=== PATIENT | male | born 1950 | race Caucasian/White ===

== ENCOUNTER 2016-02-16 13:58 | Outpatient (RCR) | payer MEDICARE ==
--- OUTSIDE RECORDS SUMMARY | 2015-11-22 14:19 | XMS REPORT | Continuity of Care Document ---
Author Author [facility] Organization [facility] Address Unknown Phone Unavailable Care Team Providers Care Director Of Early Childhood Name Role Phone Luh Zelaya PCP [phone] Source Comments Some departments are not documenting in the electronic medical record. If you do not see the information that you expected, contact Release of Information in the Health Information Management department at [phone] for further assistance in locating additional records.[facility] Active Allergies and Adverse Reactions Allergen Noted Date Severity Reactions Comments Nitroglycerin 04/22/2013 SEE COMMENTS Blood pressure drops rapidly Current Medications Prescription Sig. Disp. Refills Start End Date Status Date ranolazine ER (RANEXA) Take by mouth twice Active 500 mg tablet daily. glipiZIDE (GLUCOTROL) 10 Take 10 mg by mouth twice Active mg tablet daily. colesevelam(+) (WELCHOL) Take 1,875 mg by mouth Active 625 mg tablet three times daily. insulin detemir(+) Inject 100 Units into Active (LEVEMIR) 100 unit/mL area(s) as directed. soln insulin glulisine(+) Inject 5 Units into Active (APIDRA) 100 unit/mL area(s) as directed three injection vial times daily with meals. levothyroxine (SYNTHROID) Take 300 mcg by mouth Active 300 mcg tablet daily. levothyroxine (SYNTHROID) Take 25 mcg by mouth Active 25 mcg tablet daily. clopiDOGrel (PLAVIX) 75 Take 75 mg by mouth Active mg tablet daily. DULoxetine DR (CYMBALTA) Take 60 mg by mouth Active 60 mg capsule daily. aspirin EC 81 mg tablet Take 81 mg by mouth Active daily. atorvastatin (LIPITOR) 80 Take 80 mg by mouth Active mg tablet daily. fish oil /omega-3 fatty Take 1 Cap by mouth Active acids (SEA-OMEGA) daily. 340/1000 mg capsule Active Problems No known active problems Social History Tobacco Use Types Packs/Day Years Used Date Never Smoker Smokeless Tobacco: Never Used Alcohol Use Drinks/Week oz/Week Comments No Last Filed Vital Signs Vital Sign Reading Time Taken Blood Pressure 161/94 04/22/2013 8:35 AM ASSISTANT EXECUTIVE HOUSEKEEPER Pulse 95 04/22/2013 8:35 AM ASSISTANT EXECUTIVE HOUSEKEEPER Temperature 36.9 C (98.4 F) 04/22/2013 8:35 AM ASSISTANT EXECUTIVE HOUSEKEEPER Respiratory Rate - - Height 1.721 m (5' 7.75") 04/22/2013 8:35 AM ASSISTANT EXECUTIVE HOUSEKEEPER Weight 83.28 kg (183 lb 9.6 oz) 04/22/2013 8:35 AM ASSISTANT EXECUTIVE HOUSEKEEPER Body Mass Index 28.12 04/22/2013 8:35 AM ASSISTANT EXECUTIVE HOUSEKEEPER Oxygen Saturation 93% 04/22/2013 8:35 AM ASSISTANT EXECUTIVE HOUSEKEEPER Plan of Care Health Maintenance Due Date Last Done Comments Physical (Comprehensive) [birth year]06/1957 Exam Pertussis Vaccine 01/06/1960 Tetanus Vaccine 1966 Colorectal Cancer 1999 Screening Shingles Vaccine 2009 Prevnar/Pneumovax (#1) 2014 Influenza Vaccine 10/19/2015 Results from Last 3 Months Not on file
[2015-11-22 14:58] LABS: BASOPHILS % (AUTO) 1 % (0-10); EOSINOPHILS # (AUTO) 0.3 10^3/uL (0.0-0.3); EOSINOPHILS % (AUTO) 7 % (0-10); LYMPHOCYTES # (AUTO) 0.7 X 10^3 (1.0-4.0); LYMPHOCYTES % (AUTO) 15 % (12-44); MEAN CORPUSCULAR HEMOGLOBIN 33 PG (25-34); MEAN CORPUSCULAR HGB CONC 34 G/DL (32-36); MEAN CORPUSCULAR VOLUME 96 FL (80-99); MEAN PLATELET VOLUME 8.4 FL (7.4-10.4); MONOCYTES # (AUTO) 0.3 X 10^3 (0.0-1.0); MONOCYTES % (AUTO) 7 % (0-12); NEUTROPHILS # (AUTO) 3.2 X 10^3 (1.8-7.8); NEUTROPHILS % (AUTO) 70 % (42-75); PLATELET COUNT 139 10^3/uL (130-400); RED BLOOD COUNT 2.82 10^6/uL (4.35-5.85); RED CELL DISTRIBUTION WIDTH 13.7 % (10.0-14.5); WHITE BLOOD COUNT 4.6 10^3/uL (4.3-11.0)
[2015-12-22 14:24] LABS: BASOPHILS % (AUTO) 1 % (0-10); EOSINOPHILS # (AUTO) 0.4 10^3/uL (0.0-0.3); EOSINOPHILS % (AUTO) 8 % (0-10); LYMPHOCYTES # (AUTO) 0.7 X 10^3 (1.0-4.0); LYMPHOCYTES % (AUTO) 14 % (12-44); MEAN CORPUSCULAR HEMOGLOBIN 33 PG (25-34); MEAN CORPUSCULAR HGB CONC 34 G/DL (32-36); MEAN CORPUSCULAR VOLUME 98 FL (80-99); MEAN PLATELET VOLUME 9.2 FL (7.4-10.4); MONOCYTES # (AUTO) 0.3 X 10^3 (0.0-1.0); MONOCYTES % (AUTO) 6 % (0-12); NEUTROPHILS # (AUTO) 3.7 X 10^3 (1.8-7.8); NEUTROPHILS % (AUTO) 70 % (42-75); PLATELET COUNT 143 10^3/uL (130-400); RED CELL DISTRIBUTION WIDTH 13.1 % (10.0-14.5); WHITE BLOOD COUNT 5.2 10^3/uL (4.3-11.0)
[2016-01-04 15:23] LABS: BASOPHILS % (AUTO) 1 % (0-10); EOSINOPHILS # (AUTO) 0.3 10^3/uL (0.0-0.3); EOSINOPHILS % (AUTO) 6 % (0-10); LYMPHOCYTES # (AUTO) 0.9 X 10^3 (1.0-4.0); LYMPHOCYTES % (AUTO) 14 % (12-44); MEAN CORPUSCULAR HEMOGLOBIN 34 PG (25-34); MEAN CORPUSCULAR HGB CONC 34 G/DL (32-36); MEAN CORPUSCULAR VOLUME 98 FL (80-99); MEAN PLATELET VOLUME 9.1 FL (7.4-10.4); MONOCYTES # (AUTO) 0.5 X 10^3 (0.0-1.0); MONOCYTES % (AUTO) 8 % (0-12); NEUTROPHILS # (AUTO) 4.2 X 10^3 (1.8-7.8); NEUTROPHILS % (AUTO) 72 % (42-75); PLATELET COUNT 198 10^3/uL (130-400); RED BLOOD COUNT 2.65 10^6/uL (4.35-5.85); RED CELL DISTRIBUTION WIDTH 13.4 % (10.0-14.5); WHITE BLOOD COUNT 5.9 10^3/uL (4.3-11.0)
[2016-01-10 15:20] LABS: BASOPHILS % (AUTO) 1 % (0-10); EOSINOPHILS # (AUTO) 0.4 10^3/uL (0.0-0.3); EOSINOPHILS % (AUTO) 6 % (0-10); LYMPHOCYTES % (AUTO) 15 % (12-44); MEAN CORPUSCULAR HEMOGLOBIN 33 PG (25-34); MEAN CORPUSCULAR HGB CONC 34 G/DL (32-36); MEAN CORPUSCULAR VOLUME 98 FL (80-99); MEAN PLATELET VOLUME 8.3 FL (7.4-10.4); MONOCYTES # (AUTO) 0.5 X 10^3 (0.0-1.0); MONOCYTES % (AUTO) 7 % (0-12); NEUTROPHILS # (AUTO) 4.7 X 10^3 (1.8-7.8); NEUTROPHILS % (AUTO) 71 % (42-75); PLATELET COUNT 223 10^3/uL (130-400); RED BLOOD COUNT 2.77 10^6/uL (4.35-5.85); RED CELL DISTRIBUTION WIDTH 13.4 % (10.0-14.5); WHITE BLOOD COUNT 6.6 10^3/uL (4.3-11.0)
[2016-01-31 10:44] LABS: BASOPHILS % (AUTO) 1 % (0-10); EOSINOPHILS # (AUTO) 1.1 10^3/uL (0.0-0.3); EOSINOPHILS % (AUTO) 15 % (0-10); LYMPHOCYTES # (AUTO) 0.7 X 10^3 (1.0-4.0); LYMPHOCYTES % (AUTO) 9 % (12-44); MEAN CORPUSCULAR HEMOGLOBIN 33 PG (25-34); MEAN CORPUSCULAR HGB CONC 34 G/DL (32-36); MEAN CORPUSCULAR VOLUME 99 FL (80-99); MEAN PLATELET VOLUME 8.9 FL (7.4-10.4); MONOCYTES # (AUTO) 0.5 X 10^3 (0.0-1.0); MONOCYTES % (AUTO) 7 % (0-12); NEUTROPHILS # (AUTO) 5.1 X 10^3 (1.8-7.8); NEUTROPHILS % (AUTO) 69 % (42-75); PLATELET COUNT 186 10^3/uL (130-400); RED CELL DISTRIBUTION WIDTH 12.5 % (10.0-14.5); WHITE BLOOD COUNT 7.4 10^3/uL (4.3-11.0)
[2016-01-31 11:17] LABS: ALBUMIN 3.9 G/DL (3.2-4.5); BILIRUBIN,TOTAL 0.3 MG/DL (0.1-1.0); CALCIUM 8.4 MG/DL (8.5-10.1); CREATININE SERUM 4.82 MG/DL (0.60-1.30); POTASSIUM 4.8 MMOL/L (3.6-5.0); TOTAL PROTEIN 6.5 G/DL (6.4-8.2)
[~2016-02-16 13:58] MED LIST: ACET-2267 PO; ACET-2469 PO; ACHD5005 PO; ACYC400T PO; ALBU2.5V4 IH; ALBU8.5H2 IH; ALLP300T PO; ALPR0.5T7 PO; ALPR0.5T72 PO; AMLO5TAB2 GT; AMLO5TAB2 PO; ASP81TEC PO; ASPI-587 PO; ATOR20TA66 PO; ATOR80TA PO; AZIT-21 PO; BUDE6HFA IH; CALC667C10 PO; CARV6.252 PO; CIALIS 5 MG PO; CLIN300C3 PO; CLN.1T PO; CLOMIPHENE PO; CLOP75TA PO; CLOP75TA28 PO; COLE625T9 PO; CYMBALTA; DARBEPOETIN 10 MCG/0.4 ML ARANESP IJ SCH; DARBEPOETIN 25 MCG/ML (CANCER CTR) 1 ML VIAL SC SCH; DOCU100C37 PO; DULO60CA58 PO; DULO60CA6 PO; ENAL2.5T PO; GABA-486 PO; GLIP10TA13 PO; HYDR-3816 PO; HYDR-3923 PO; INSU100C SQ; INSU100C2 SQ; INSU100I11 SQ; INSU100I16 SQ; INSU100I29 SQ; INSU100V3 SC; INSU100V5 SQ; INSU100V7 SQ; ISOS30TA3 PO; Insulin Human Lispro SC; LEVE1U SQ; LEVO125T6 PO; LEVO175T3 PO; LEVO300T2 PO; LEVO300T31 PO; LORA1TAB PO; LVT.025T PO; LVT.1T PO; METFORMIN; METO5SOL20 PO; METO5TAB2 PO; MPR22TI TP; MTP25TSR PO; NORT25CA PO; OMEP20CA12 PO; OMG1KC PO; ONDA-42 SL; ONDA4TAB2 PO; ONDA8TAB6 PO; ONDN4T PO; PANT40TA PO; PNT40TEC PO; PRD10T PO; RANO500T2 PO; TICA90TA PO; TIOT18CA2 IH; WELCHOL 625MG PO; albuterol INH
[2016-02-16 14:12] LABS: BASOPHILS % (AUTO) 0 % (0-10); EOSINOPHILS # (AUTO) 0.7 10^3/uL (0.0-0.3); EOSINOPHILS % (AUTO) 9 % (0-10); LYMPHOCYTES # (AUTO) 0.9 X 10^3 (1.0-4.0); LYMPHOCYTES % (AUTO) 11 % (12-44); MEAN CORPUSCULAR HEMOGLOBIN 33 PG (25-34); MEAN CORPUSCULAR HGB CONC 34 G/DL (32-36); MEAN CORPUSCULAR VOLUME 97 FL (80-99); MEAN PLATELET VOLUME 8.1 FL (7.4-10.4); MONOCYTES # (AUTO) 0.4 X 10^3 (0.0-1.0); MONOCYTES % (AUTO) 5 % (0-12); NEUTROPHILS # (AUTO) 6.1 X 10^3 (1.8-7.8); NEUTROPHILS % (AUTO) 75 % (42-75); PLATELET COUNT 204 10^3/uL (130-400); RED BLOOD COUNT 2.86 10^6/uL (4.35-5.85); RED CELL DISTRIBUTION WIDTH 12.7 % (10.0-14.5); WHITE BLOOD COUNT 8.2 10^3/uL (4.3-11.0)
== END 2016-02-20 | disposition home or self-care (01) ==
LOC: ONC 13:58
PROVIDERS: ATTEND Internal Medicine Hematology & Oncology
DX: C85.80 Other specified types of non-Hodgkin lymphoma, unspecified site (principal); D63.1 Anemia in chronic kidney disease; N18.4 Chronic kidney disease, stage 4 (severe); E11.9 Type 2 diabetes mellitus without complications; E03.9 Hypothyroidism, unspecified; E78.5 Hyperlipidemia, unspecified; G47.30 Sleep apnea, unspecified; I25.10 Atherosclerotic heart disease of native coronary artery without angina pectoris; I12.9 Hypertensive chronic kidney disease with stage 1 through stage 4 chronic kidney disease, or unspecified chronic kidney disease; G60.9 Hereditary and idiopathic neuropathy, unspecified; Z98.61 Coronary angioplasty status; Z79.4 Long term (current) use of insulin; Z79.899 Other long term (current) drug therapy
CPT/HCPCS: 36415; 36591; 80053; 82728; 83615; 85025; 96372; 99213

== ENCOUNTER → 2016-03-05 | Outpatient (CLI) | payer MEDICARE ==
[~2016-03-05] MED LIST changes: +CEPH250T PO; -DARBEPOETIN 10 MCG/0.4 ML ARANESP IJ SCH; -DARBEPOETIN 25 MCG/ML (CANCER CTR) 1 ML VIAL SC SCH
--- OUTSIDE RECORDS SUMMARY | 2016-03-05 14:52 | XMS REPORT | Continuity of Care Document ---
Author Author [facility] Organization [facility] Address Unknown Phone Unavailable Care Team Providers Care Grinding And Spraying Supervisor Name Role Phone Luh Zelaya PCP [phone] Source Comments Some departments are not documenting in the electronic medical record. If you do not see the information that you expected, contact Release of Information in the Health Information Management department at [phone] for further assistance in locating additional records.[facility] Active Allergies and Adverse Reactions Allergen [...] Taken Blood Pressure 161/94 04/22/2013 8:35 AM OYSTER PREPARER Pulse 95 04/22/2013 8:35 AM OYSTER PREPARER Temperature 36.9 C (98.4 F) 04/22/2013 8:35 AM OYSTER PREPARER Respiratory Rate - - Height 1.721 m (5' 7.75") 04/22/2013 8:35 AM OYSTER PREPARER Weight 83.28 kg (183 lb 9.6 oz) 04/22/2013 8:35 AM OYSTER PREPARER Body Mass Index 28.12 04/22/2013 8:35 AM OYSTER PREPARER Oxygen Saturation 93% 04/22/2013 8:35 AM OYSTER PREPARER Plan of Care Health Maintenance Due Date Last Done Comments Hepatitis C Screening 1950 Physical (Comprehensive) [birth year]06/1957 Exam Pertussis Vaccine 01/06/1960 Tetanus Vaccine 1966 Colorectal Cancer 1999 Screening Shingles Vaccine 2009 Prevnar/Pneumovax (#1) 2014 Influenza Vaccine 10/19/2015 Results from Last 3 Months Not on file
[2016-03-05 16:12] LABS: ALBUMIN 3.8 G/DL (3.2-4.5); CALCIUM 8.6 MG/DL (8.5-10.1); CREATININE SERUM 4.48 MG/DL (0.60-1.30); PHOSPHORUS 4.8 MG/DL (2.3-4.7); POTASSIUM 4.8 MMOL/L (3.6-5.0)
== END ==
LOC: LAB 14:48
PROVIDERS: ATTEND Internal Medicine Nephrology
DX: N18.5 Chronic kidney disease, stage 5 (principal)
CPT/HCPCS: 80069

== ENCOUNTER → 2016-03-14 | Outpatient (CLI) | payer MEDICARE ==
--- OUTSIDE RECORDS SUMMARY | 2016-03-14 14:43 | XMS REPORT | Continuity of Care Document ---
Author Author [facility] Organization [facility] Address Unknown Phone Unavailable Care Team Providers Care Reach Truck Operator Name Role Phone Luh Zelaya PCP [phone] Source Comments Some departments are not documenting in the electronic medical record. If you do not see the information that you expected, contact Release of Information in the Health Information Management department at [phone] for further assistance in locating additional records.[facility] Active Allergies and Adverse Reactions Allergen [...] Taken Blood Pressure 161/94 04/22/2013 8:35 AM SACK SORTER Pulse 95 04/22/2013 8:35 AM SACK SORTER Temperature 36.9 C (98.4 F) 04/22/2013 8:35 AM SACK SORTER Respiratory Rate - - Height 1.721 m (5' 7.75") 04/22/2013 8:35 AM SACK SORTER Weight 83.28 kg (183 lb 9.6 oz) 04/22/2013 8:35 AM SACK SORTER Body Mass Index 28.12 04/22/2013 8:35 AM SACK SORTER Oxygen Saturation 93% 04/22/2013 8:35 AM SACK SORTER Plan of Care Health Maintenance Due Date Last Done Comments Hepatitis C Screening 1950 Physical (Comprehensive) [birth year]06/1957 Exam Pertussis Vaccine 01/06/1960 Tetanus Vaccine 1966 Colorectal Cancer 1999 Screening Shingles Vaccine 2009 Prevnar/Pneumovax (#1) 2014 Influenza Vaccine 10/19/2015 Results from Last 3 Months Not on file
[2016-03-14 16:12] LABS: THYROID STIMULATING HORMONE 0.83 UIU/ML (0.35-4.94)
== END ==
LOC: LAB 14:39
PROVIDERS: ATTEND Family Medicine
DX: E11.21 Type 2 diabetes mellitus with diabetic nephropathy (principal); E03.9 Hypothyroidism, unspecified
CPT/HCPCS: 36415; 83036; 84439; 84443

== ENCOUNTER 2016-04-12 00:47 | Emergency (ER) | payer MEDICARE ==
[~2016-04-12] VITALS: Ht 177.8 cm; Wt 72.6 kg
[~2016-04-12 00:47] MED LIST changes: -CEPH250T PO
--- OUTSIDE RECORDS SUMMARY | 2016-04-12 00:56 | XMS REPORT | Continuity of Care Document ---
Author Author [facility] Organization [facility] Address Unknown Phone Unavailable Care Team Providers Care Pump Stitcher Name Role Phone Luh Zelaya PCP [phone] Source Comments Some departments are not documenting in the electronic medical record. If you do not see the information that you expected, contact Release of Information in the Health Information Management department at [phone] for further assistance in locating additional records.[facility] Active Allergies and Adverse Reactions Allergen [...] Taken Blood Pressure 161/94 04/22/2013 8:35 AM PRINTING PRESS OPERATOR Pulse 95 04/22/2013 8:35 AM PRINTING PRESS OPERATOR Temperature 36.9 C (98.4 F) 04/22/2013 8:35 AM PRINTING PRESS OPERATOR Respiratory Rate - - Height 1.721 m (5' 7.75") 04/22/2013 8:35 AM PRINTING PRESS OPERATOR Weight 83.28 kg (183 lb 9.6 oz) 04/22/2013 8:35 AM PRINTING PRESS OPERATOR Body Mass Index 28.12 04/22/2013 8:35 AM PRINTING PRESS OPERATOR Oxygen Saturation 93% 04/22/2013 8:35 AM PRINTING PRESS OPERATOR Plan of Care Health Maintenance Due Date Last Done Comments Hepatitis C Screening 1950 Physical (Comprehensive) 01[birth year]06/1957 Exam Pertussis Vaccine 01/06/1960 Tetanus Vaccine 1966 Colorectal Cancer 1999 Screening Shingles Vaccine 2009 Prevnar/Pneumovax (#1) 2014 Influenza Vaccine 10/19/2015 Results from Last 3 Months Not on file
[2016-04-12 01:26] LABS: BASOPHILS % (AUTO) 0 % (0-10); EOSINOPHILS # (AUTO) 0.2 10^3/uL (0.0-0.3); EOSINOPHILS % (AUTO) 2 % (0-10); LYMPHOCYTES # (AUTO) 0.9 X 10^3 (1.0-4.0); LYMPHOCYTES % (AUTO) 9 % (12-44); MEAN CORPUSCULAR HEMOGLOBIN 32 PG (25-34); MEAN CORPUSCULAR HGB CONC 34 G/DL (32-36); MEAN CORPUSCULAR VOLUME 95 FL (80-99); MONOCYTES # (AUTO) 0.8 X 10^3 (0.0-1.0); MONOCYTES % (AUTO) 7 % (0-12); NEUTROPHILS # (AUTO) 8.4 X 10^3 (1.8-7.8); NEUTROPHILS % (AUTO) 82 % (42-75); PLATELET COUNT 230 10^3/uL (130-400); RED BLOOD COUNT 2.92 10^6/uL (4.35-5.85); WHITE BLOOD COUNT 10.4 10^3/uL (4.3-11.0)
[2016-04-12 01:46] LABS: ALBUMIN 3.6 G/DL (3.2-4.5); BILIRUBIN,TOTAL 0.3 MG/DL (0.1-1.0); CALCIUM 8.7 MG/DL (8.5-10.1); CREATININE SERUM 4.85 MG/DL (0.60-1.30); MAGNESIUM 1.9 MG/DL (1.8-2.4); POTASSIUM 5.2 MMOL/L (3.6-5.0); TOTAL PROTEIN 6.5 G/DL (6.4-8.2); hs C REACTIVE PROTEIN 3.92 MG/DL (0.00-0.50)
[2016-04-12 02:05] LABS: THYROID STIMULATING HORMONE 8.39 UIU/ML (0.35-4.94)
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
[2016-04-12] MEDS ORDERED: NS IV 500 ML 500 ML IV ONE (02:20)
[2016-04-12 03:46] LABS: BILIRUBIN,URINE NEGATIVE (NEGATIVE); KETONES,URINE NEGATIVE (NEGATIVE); LEUKOCYTE ESTERASE ,URINE NEGATIVE (NEGATIVE); NITRITE,URINE NEGATIVE (NEGATIVE); PH,URINE 6 (5-9); PROTEIN,URINE 3+ (NEGATIVE); UROBILINOGEN,URINE NORMAL (NORMAL)
[2016-04-12 05:10] VITALS: BP 180/90
--- NOTE | 2016-04-12 08:11 | Diagnostic Imaging Report ---
Portable chest. INDICATION: Dizziness and altered mental status. Comparison made to prior study from April 30, 2015. FINDINGS: A left subclavian port is again demonstrated. This appears unchanged in position. The lungs demonstrate no focal infiltrate or evidence of consolidation. There is no effusion or evidence of pneumothorax. Heart size and mediastinal contours appear appropriate. Coronary artery calcifications are present. There is no evidence of failure. No acute osseous abnormality demonstrated. IMPRESSION: No radiographic evidence of an acute cardiopulmonary process. Dictated by: Dictated on workstation # [id number]
== END 2016-04-12 05:10 | disposition home or self-care (01) ==
LOC: EDUNIT# 00:47 → ER 00:52
DX: R41.0 Disorientation, unspecified (principal); I12.0 Hypertensive chronic kidney disease with stage 5 chronic kidney disease or end stage renal disease; N18.6 End stage renal disease; Z99.2 Dependence on renal dialysis; T85.611A Breakdown (mechanical) of intraperitoneal dialysis catheter, initial encounter; E11.9 Type 2 diabetes mellitus without complications; I48.2 Chronic atrial fibrillation; I25.10 Atherosclerotic heart disease of native coronary artery without angina pectoris; Z79.82 Long term (current) use of aspirin; Z79.4 Long term (current) use of insulin; Z79.899 Other long term (current) drug therapy; Z85.850 Personal history of malignant neoplasm of thyroid
CPT/HCPCS: 36415; 71010; 80053; 81000; 83735; 84443; 84484; 85025; 86141; 93005; 96360

== ENCOUNTER 2016-04-19 16:56 | Emergency (ER) | payer MEDICARE ==
[~2016-04-19] VITALS: Ht 177.8 cm; Wt 75.7 kg
--- OUTSIDE RECORDS SUMMARY | 2016-04-19 17:01 | XMS REPORT | Continuity of Care Document ---
Author Author [facility] Organization [facility] Address Unknown Phone Unavailable Care Team Providers Care Health And Safety Manager Name Role Phone Luh Zelaya PCP [phone] Source Comments Some departments are not documenting in the electronic medical record. If you do not see the information that you expected, contact Release of Information in the Health Information Management department at [phone] for further assistance in locating additional records.[facility] Active Allergies and Adverse Reactions Allergen [...] Taken Blood Pressure 161/94 04/22/2013 8:35 AM HOME HEALTH REGISTERED NURSE Pulse 95 04/22/2013 8:35 AM HOME HEALTH REGISTERED NURSE Temperature 36.9 C (98.4 F) 04/22/2013 8:35 AM HOME HEALTH REGISTERED NURSE Respiratory Rate - - Height 1.721 m (5' 7.75") 04/22/2013 8:35 AM HOME HEALTH REGISTERED NURSE Weight 83.28 kg (183 lb 9.6 oz) 04/22/2013 8:35 AM HOME HEALTH REGISTERED NURSE Body Mass Index 28.12 04/22/2013 8:35 AM HOME HEALTH REGISTERED NURSE Oxygen Saturation 93% 04/22/2013 8:35 AM HOME HEALTH REGISTERED NURSE Plan of Care Health Maintenance Due Date Last Done Comments Hepatitis C Screening 1950 Physical (Comprehensive) [birth year]06/1957 Exam Pertussis Vaccine 01/06/1960 Tetanus Vaccine 1966 Colorectal Cancer 1999 Screening Shingles Vaccine 2009 Prevnar/Pneumovax (#1) 2014 Influenza Vaccine 10/19/2015 Results from Last 3 Months Not on file
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
[2016-04-19] MEDS ORDERED: HYDROcodone/APAP 10 MG/325 MG (LORTAB) TAB PO STA (18:21)
[2016-04-19 19:15] LABS: BILIRUBIN,URINE NEGATIVE (NEGATIVE); KETONES,URINE NEGATIVE (NEGATIVE); LEUKOCYTE ESTERASE ,URINE NEGATIVE (NEGATIVE); NITRITE,URINE NEGATIVE (NEGATIVE); PH,URINE 6 (5-9); PROTEIN,URINE 3+ (NEGATIVE); UROBILINOGEN,URINE NORMAL (NORMAL)
[2016-04-19 19:23] LABS: SQUAMOUS EPITHELIAL CELL,UR 0-2 /HPF; WBC,URINE RARE /HPF
[2016-04-19] MEDS ORDERED: oxyCODONE/APAP 5/325MG (PERCOCET 5) TABLET PO STA (19:39)
--- NOTE | 2016-04-19 20:22 | Diagnostic Imaging Report ---
PROCEDURE: CT abdomen and pelvis without contrast. TECHNIQUE: Multiple contiguous axial images were obtained through the abdomen and pelvis without the use of intravenous contrast. INDICATION: Unable to urinate. Status post recent peritoneal dialysis catheter manipulation. COMPARISON: 03/30/2013 FINDINGS: Included views of the lung bases show some nonspecific groundglass density within both lung bases. CT abdomen: Small amount of free fluid and free air is noted within the abdomen. There is no focal loculated air-fluid collection. Indwelling peritoneal dialysis catheter is also present coiled in the lower pelvis. There is no evidence of pseudocyst around the distal end of the catheter. Moderate air and stool is noted scattered throughout the colon. Normal appendix cannot be adequately identified, but there is no pericecal inflammation. There are a few scattered colonic diverticuli, but no CT evidence of acute diverticulitis. Small bowel loops are nondistended. Carter catheter is present within the urinary bladder. Urinary bladder is decompressed. There is somewhat thickened appearance to the urinary bladder wall. Evaluation of the kidneys demonstrates no focal renal lesions on this noncontrast exam. No renal or ureteral calculi are identified on either side. There is, however, some asymmetric perirenal fat stranding on the right. There is, however, no hydroureteronephrosis or other evidence of obstruction. The liver, spleen, pancreas, and adrenal glands have an unremarkable noncontrast CT appearance. No abnormal mesenteric or retroperitoneal adenopathy is seen. Bony structures show no acute abnormalities. CT pelvis: Trace free fluid is present within the pelvis. There is no loculated air-fluid collection. Again, indwelling Carter catheter with urinary bladder wall thickening as described above. No abnormal lymph nodes are seen. There is diffuse calcified aortic and arterial atherosclerosis. Bony structures show no acute abnormalities. IMPRESSION: 1. Asymmetric perirenal fat stranding on the right, but no renal or ureteral calculi or hydroureteronephrosis to suggest obstruction. Underlying infection cannot be excluded. Clinical correlation recommended. 2. Indwelling Carter catheter with decompressed urinary bladder. 3. Thickened appearance to the urinary bladder wall. This may be artifactual and related to incomplete distention, but may also be seen with underlying cystitis. Again, clinical correlation recommended. 4. Small amount of free air or free fluid within the abdomen. This is not unexpected given history of recent peritoneal dialysis catheter manipulation. 5. Nonspecific groundglass densities within the included lung bases. Dictated by: Dictated on workstation # [id number]
[2016-04-19] MEDS ORDERED: CEPH250T PO (20:43)
[2016-04-19 21:01] VITALS: BP 172/88
== END 2016-04-19 21:01 | disposition home or self-care (01) ==
LOC: EDUNIT# 16:56 → ER 16:57
DX: R33.9 Retention of urine, unspecified (principal); I12.0 Hypertensive chronic kidney disease with stage 5 chronic kidney disease or end stage renal disease; N18.6 End stage renal disease; Z99.2 Dependence on renal dialysis; E11.9 Type 2 diabetes mellitus without complications; Z79.4 Long term (current) use of insulin; Z79.82 Long term (current) use of aspirin; Z79.899 Other long term (current) drug therapy; Z98.890 Other specified postprocedural states; Z95.5 Presence of coronary angioplasty implant and graft; Z85.850 Personal history of malignant neoplasm of thyroid; Z85.72 Personal history of non-Hodgkin lymphomas; Z92.21 Personal history of antineoplastic chemotherapy
CPT/HCPCS: 51702; 74176; 81000

== ENCOUNTER 2016-04-20 11:13 | Emergency (ER) | payer MEDICARE ==
[~2016-04-20] VITALS: Ht 172.7 cm; Wt 81.6 kg
[~2016-04-20 11:13] MED LIST changes: +CEPH250T PO
--- OUTSIDE RECORDS SUMMARY | 2016-04-20 11:18 | XMS REPORT | Continuity of Care Document ---
Author Author [facility] Organization [facility] Address Unknown Phone Unavailable Care Team Providers Care Pet Care Technician Name Role Phone Luh Zelaya PCP [phone] Source Comments Some departments are not documenting in the electronic medical record. If you do not see the information that you expected, contact Release of Information in the Health Information Management department at [phone] for further assistance in locating additional records.[facility] Active Allergies and Adverse Reactions Allergen Noted [...] Taken Blood Pressure 161/94 04/22/2013 8:35 AM INSTALLMENT AGENT Pulse 95 04/22/2013 8:35 AM INSTALLMENT AGENT Temperature 36.9 C (98.4 F) 04/22/2013 8:35 AM INSTALLMENT AGENT Respiratory Rate - - Height 1.721 m (5' 7.75") 04/22/2013 8:35 AM INSTALLMENT AGENT Weight 83.28 kg (183 lb 9.6 oz) 04/22/2013 8:35 AM INSTALLMENT AGENT Body Mass Index 28.12 04/22/2013 8:35 AM INSTALLMENT AGENT Oxygen Saturation 93% 04/22/2013 8:35 AM INSTALLMENT AGENT Plan of Care Health Maintenance Due Date Last Done Comments Hepatitis C Screening 1950 Physical (Comprehensive) 01/06/1956 Exam Pertussis Vaccine 01/06/1960 Tetanus Vaccine 1966 Colorectal Cancer 1999 Screening Shingles Vaccine 2009 Prevnar/Pneumovax (#1) 2014 Influenza Vaccine 10/19/2015 Results from Last 3 Months Not on file
[2016-04-20] MEDS ORDERED: HYDROcodone/APAP 5 MG/325 MG (LORTAB) TAB PO STA (12:18)
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
[2016-04-20 12:47] LABS: BASOPHILS % (AUTO) 0 % (0-10); EOSINOPHILS # (AUTO) 0.2 10^3/uL (0.0-0.3); EOSINOPHILS % (AUTO) 2 % (0-10); LYMPHOCYTES # (AUTO) 0.5 X 10^3 (1.0-4.0); LYMPHOCYTES % (AUTO) 4 % (12-44); MEAN CORPUSCULAR HEMOGLOBIN 32 PG (25-34); MEAN CORPUSCULAR HGB CONC 34 G/DL (32-36); MEAN CORPUSCULAR VOLUME 95 FL (80-99); MEAN PLATELET VOLUME 8.7 FL (7.4-10.4); MONOCYTES # (AUTO) 0.7 X 10^3 (0.0-1.0); MONOCYTES % (AUTO) 5 % (0-12); NEUTROPHILS # (AUTO) 11.3 X 10^3 (1.8-7.8); NEUTROPHILS % (AUTO) 89 % (42-75); PLATELET COUNT 261 10^3/uL (130-400); RED CELL DISTRIBUTION WIDTH 11.6 % (10.0-14.5); WHITE BLOOD COUNT 12.6 10^3/uL (4.3-11.0)
[2016-04-20 13:02] LABS: INR 1.1 (0.8-1.4); PROTHROMBIN TIME PATIENT 13.8 SEC (12.2-14.7)
[2016-04-20 13:06] LABS: CALCIUM 9.5 MG/DL (8.5-10.1); CREATININE SERUM 4.83 MG/DL (0.60-1.30); POTASSIUM 4.8 MMOL/L (3.6-5.0)
[2016-04-20 13:18] LABS: LYMPHOCYTES % (MANUAL) 3 %; NEUTROPHILS % (MANUAL) 95 %
[2016-04-20 13:30] VITALS: BP 132/70
== END 2016-04-20 13:30 | disposition home or self-care (01) ==
LOC: EDUNIT# 11:13 → ER 11:14
DX: R33.9 Retention of urine, unspecified (principal); Z46.6 Encounter for fitting and adjustment of urinary device; I12.0 Hypertensive chronic kidney disease with stage 5 chronic kidney disease or end stage renal disease; N18.6 End stage renal disease; E11.9 Type 2 diabetes mellitus without complications; I25.10 Atherosclerotic heart disease of native coronary artery without angina pectoris; I48.2 Chronic atrial fibrillation; Z99.2 Dependence on renal dialysis; Z79.82 Long term (current) use of aspirin; Z79.4 Long term (current) use of insulin; Z79.899 Other long term (current) drug therapy; Z85.72 Personal history of non-Hodgkin lymphomas; Z85.850 Personal history of malignant neoplasm of thyroid; Z95.5 Presence of coronary angioplasty implant and graft
CPT/HCPCS: 36415; 51702; 80048; 85007; 85027; 85610; 85730

== ENCOUNTER → 2016-04-25 | Outpatient (CLI) | payer MEDICARE ==
[~2016-04-25] VITALS: Ht 172.7 cm; Wt 81.9 kg
--- OUTSIDE RECORDS SUMMARY | 2016-04-25 14:37 | XMS REPORT | Continuity of Care Document ---
Author Author [facility] Organization [facility] Address Unknown Phone Unavailable Care Team Providers Care Manual Training Teacher Name Role Phone Luh Zelaya PCP [phone] Source Comments Some departments are not documenting in the electronic medical record. 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
[2016-04-25 15:39] VITALS: BP 132/78
== END ==
LOC: SDC 14:31
PROVIDERS: ATTEND Nurse Practitioner Family
DX: R33.9 Retention of urine, unspecified (principal)

== ENCOUNTER 2016-05-08 10:22 | Outpatient (RCR) | payer MEDICARE ==
--- OUTSIDE RECORDS SUMMARY | 2016-03-05 14:22 | XMS REPORT | Continuity of Care Document ---
Author Author [facility] Organization [facility] Address Unknown Phone Unavailable Care Team Providers Care Supply Analyst Name Role Phone Luh Zelaya PCP [phone] Source Comments Some departments are not documenting in the electronic medical record. If you do not see the information that you expected, contact Release of Information in the Health Information Management department at [phone] for further assistance in locating additional records.[facility] Active Allergies and Adverse Reactions Allergen Noted [...] Taken Blood Pressure 161/94 04/22/2013 8:35 AM JOB DEVELOPMENT SPECIALIST Pulse 95 04/22/2013 8:35 AM JOB DEVELOPMENT SPECIALIST Temperature 36.9 C (98.4 F) 04/22/2013 8:35 AM JOB DEVELOPMENT SPECIALIST Respiratory Rate - - Height 1.721 m (5' 7.75") 04/22/2013 8:35 AM JOB DEVELOPMENT SPECIALIST Weight 83.28 kg (183 lb 9.6 oz) 04/22/2013 8:35 AM JOB DEVELOPMENT SPECIALIST Body Mass Index 28.12 04/22/2013 8:35 AM JOB DEVELOPMENT SPECIALIST Oxygen Saturation 93% 04/22/2013 8:35 AM JOB DEVELOPMENT SPECIALIST Plan of Care Health Maintenance Due Date Last Done Comments Hepatitis C Screening 1950 Physical (Comprehensive) [birth year]06/1957 Exam Pertussis Vaccine 01/06/1960 Tetanus Vaccine 1966 Colorectal Cancer 1999 Screening Shingles Vaccine 2009 Prevnar/Pneumovax (#1) 2014 Influenza Vaccine 10/19/2015 Results from Last 3 Months Not on file
[2016-03-05 14:57] LABS: BASOPHILS % (AUTO) 0 % (0-10); EOSINOPHILS # (AUTO) 0.3 10^3/uL (0.0-0.3); EOSINOPHILS % (AUTO) 4 % (0-10); LYMPHOCYTES # (AUTO) 0.6 X 10^3 (1.0-4.0); LYMPHOCYTES % (AUTO) 8 % (12-44); MEAN CORPUSCULAR HEMOGLOBIN 33 PG (25-34); MEAN CORPUSCULAR HGB CONC 34 G/DL (32-36); MEAN CORPUSCULAR VOLUME 98 FL (80-99); MEAN PLATELET VOLUME 8.5 FL (7.4-10.4); MONOCYTES # (AUTO) 0.5 X 10^3 (0.0-1.0); MONOCYTES % (AUTO) 7 % (0-12); NEUTROPHILS # (AUTO) 5.8 X 10^3 (1.8-7.8); NEUTROPHILS % (AUTO) 80 % (42-75); PLATELET COUNT 164 10^3/uL (130-400); RED BLOOD COUNT 2.77 10^6/uL (4.35-5.85); RED CELL DISTRIBUTION WIDTH 12.5 % (10.0-14.5); WHITE BLOOD COUNT 7.2 10^3/uL (4.3-11.0)
[2016-03-27 14:56] LABS: BASOPHILS % (AUTO) 1 % (0-10); EOSINOPHILS # (AUTO) 0.3 10^3/uL (0.0-0.3); EOSINOPHILS % (AUTO) 4 % (0-10); LYMPHOCYTES # (AUTO) 0.7 X 10^3 (1.0-4.0); LYMPHOCYTES % (AUTO) 10 % (12-44); MEAN CORPUSCULAR HEMOGLOBIN 32 PG (25-34); MEAN CORPUSCULAR HGB CONC 34 G/DL (32-36); MEAN CORPUSCULAR VOLUME 95 FL (80-99); MEAN PLATELET VOLUME 8.1 FL (7.4-10.4); MONOCYTES # (AUTO) 0.5 X 10^3 (0.0-1.0); MONOCYTES % (AUTO) 6 % (0-12); NEUTROPHILS # (AUTO) 5.8 X 10^3 (1.8-7.8); NEUTROPHILS % (AUTO) 80 % (42-75); PLATELET COUNT 194 10^3/uL (130-400); RED BLOOD COUNT 2.86 10^6/uL (4.35-5.85); RED CELL DISTRIBUTION WIDTH 11.9 % (10.0-14.5); WHITE BLOOD COUNT 7.3 10^3/uL (4.3-11.0)
[2016-03-27 15:26] LABS: ALBUMIN 3.9 G/DL (3.2-4.5); BILIRUBIN,TOTAL 0.2 MG/DL (0.1-1.0); CALCIUM 8.7 MG/DL (8.5-10.1); CREATININE SERUM 4.56 MG/DL (0.60-1.30); POTASSIUM 5.4 MMOL/L (3.6-5.0); TOTAL PROTEIN 6.5 G/DL (6.4-8.2)
[2016-04-11 15:24] LABS: BASOPHILS % (AUTO) 0 % (0-10); EOSINOPHILS # (AUTO) 0.6 10^3/uL (0.0-0.3); EOSINOPHILS % (AUTO) 5 % (0-10); LYMPHOCYTES # (AUTO) 0.8 X 10^3 (1.0-4.0); LYMPHOCYTES % (AUTO) 7 % (12-44); MEAN CORPUSCULAR HEMOGLOBIN 32 PG (25-34); MEAN CORPUSCULAR HGB CONC 34 G/DL (32-36); MEAN CORPUSCULAR VOLUME 94 FL (80-99); MEAN PLATELET VOLUME 8.1 FL (7.4-10.4); MONOCYTES # (AUTO) 0.9 X 10^3 (0.0-1.0); MONOCYTES % (AUTO) 8 % (0-12); NEUTROPHILS # (AUTO) 9.1 X 10^3 (1.8-7.8); NEUTROPHILS % (AUTO) 80 % (42-75); PLATELET COUNT 253 10^3/uL (130-400); RED BLOOD COUNT 3.18 10^6/uL (4.35-5.85); RED CELL DISTRIBUTION WIDTH 12.4 % (10.0-14.5); WHITE BLOOD COUNT 11.3 10^3/uL (4.3-11.0)
[~2016-05-08 10:22] MED LIST changes: +DARBEPOETIN 25 MCG/ML (CANCER CTR) 1 ML VIAL SC SCH
[2016-05-08 11:08] LABS: BASOPHILS % (AUTO) 1 % (0-10); EOSINOPHILS # (AUTO) 0.4 10^3/uL (0.0-0.3); EOSINOPHILS % (AUTO) 4 % (0-10); LYMPHOCYTES # (AUTO) 0.9 X 10^3 (1.0-4.0); LYMPHOCYTES % (AUTO) 11 % (12-44); MEAN CORPUSCULAR HEMOGLOBIN 31 PG (25-34); MEAN CORPUSCULAR HGB CONC 33 G/DL (32-36); MEAN CORPUSCULAR VOLUME 95 FL (80-99); MEAN PLATELET VOLUME 8.2 FL (7.4-10.4); MONOCYTES # (AUTO) 0.6 X 10^3 (0.0-1.0); MONOCYTES % (AUTO) 7 % (0-12); NEUTROPHILS # (AUTO) 6.5 X 10^3 (1.8-7.8); NEUTROPHILS % (AUTO) 77 % (42-75); PLATELET COUNT 301 10^3/uL (130-400); RED BLOOD COUNT 2.95 10^6/uL (4.35-5.85); RED CELL DISTRIBUTION WIDTH 12.5 % (10.0-14.5); WHITE BLOOD COUNT 8.5 10^3/uL (4.3-11.0)
[2016-05-08] MEDS ORDERED: DARBEPOETIN 25 MCG/ML (CANCER CTR) 1 ML VIAL SC SCH (12:00)
[2016-05-08 12:17] LABS: ALANINE AMINOTRANSFERASE < 6 U/L (0-55); ALBUMIN 3.3 G/DL (3.2-4.5); ANION GAP 8 MMOL/L (5-14); ASPARTATE AMINO TRANSFERASE 8 U/L (5-34); BILIRUBIN,TOTAL 0.3 MG/DL (0.1-1.0); BLOOD UREA NITROGEN 49 MG/DL (7-18); BUN/CREATININE RATIO 12; CALCIUM 8.6 MG/DL (8.5-10.1); CARBON DIOXIDE 23 MMOL/L (21-32); CHLORIDE 105 MMOL/L (98-107); GFR ESTIMATED 14; GLUCOSE 153 MG/DL (70-105); POTASSIUM 5.6 MMOL/L (3.6-5.0); SODIUM 136 MMOL/L (135-145); TOTAL PROTEIN 6.5 G/DL (6.4-8.2)
== END 2016-06-03 | disposition home or self-care (01) ==
LOC: ONC 10:22
PROVIDERS: ATTEND Internal Medicine Hematology & Oncology
DX: C85.80 Other specified types of non-Hodgkin lymphoma, unspecified site (principal); D63.1 Anemia in chronic kidney disease; N18.4 Chronic kidney disease, stage 4 (severe); E11.9 Type 2 diabetes mellitus without complications; E03.9 Hypothyroidism, unspecified; E78.5 Hyperlipidemia, unspecified; G47.30 Sleep apnea, unspecified; I25.10 Atherosclerotic heart disease of native coronary artery without angina pectoris; I12.9 Hypertensive chronic kidney disease with stage 1 through stage 4 chronic kidney disease, or unspecified chronic kidney disease; G60.9 Hereditary and idiopathic neuropathy, unspecified; Z98.61 Coronary angioplasty status; Z79.4 Long term (current) use of insulin; Z79.899 Other long term (current) drug therapy
CPT/HCPCS: 36591; 80053; 82728; 83615; 85025; 96372; 99213

== ENCOUNTER → 2016-05-13 | Outpatient (CLI) | payer MEDICARE ==
[~2016-05-13] MED LIST changes: -DARBEPOETIN 25 MCG/ML (CANCER CTR) 1 ML VIAL SC SCH
--- NOTE | 2016-05-13 12:12 | Diagnostic Imaging Report ---
PROCEDURE: CT neck soft tissue without contrast. TECHNIQUE: Multiple contiguous axial images were obtained through the neck without the use of intravenous contrast. INDICATION: Lymphoma. COMPARISON: Comparison PET/CT of 08/22/2015. FINDINGS: The parotid and submandibular glands appear symmetric. The atypical hypodense thyroid parenchyma is not well seen probably related to atrophy. No significantly enlarged lymph nodes or soft tissue mass is seen along the cervical chain. There is prominent atherosclerotic vascular calcifications along the carotid bifurcation bilaterally. The vocal cords appear symmetric. The airway and the mucosal pharyngeal space appear grossly unremarkable. The visualized portions of the paranasal sinuses demonstrate mild opacification in the mid ethmoidal air cells and mild partial opacification in the inferior aspect of the mastoid air cells bilaterally. The lung apices demonstrate mild fibrotic changes. The osseous structures demonstrate degenerative changes with no suspicious mass. IMPRESSION: 1. No significant lymphadenopathy or soft tissue mass. 2. Mild mucosal thickening in the mastoid air cells and the mid ethmoidal air cells. Dictated by: Dictated on workstation # [id number]
== END ==
LOC: RAD 11:02
PROVIDERS: ATTEND Nurse Practitioner Adult Health
DX: C83.38 Diffuse large B-cell lymphoma, lymph nodes of multiple sites (principal)
CPT/HCPCS: 70490

== ENCOUNTER → 2016-05-15 | Outpatient (CLI) | payer MEDICARE ==
[~2016-05-15] MED LIST changes: +CATHETER FLUSH 10 ML SYR IV PRN; +REGADENOSON 0.4 MG/5 ML SYR (LEXISCAN) IV ONE
[2016-05-15 09:27] VITALS: BP 149/68
--- NOTE | 2016-05-15 20:43 | STRESS TEST ---
PROCEDURE PHYSICIAN: TEDDY HOANG DATE OF PROCEDURE: 05/15/2016 LEXISCAN MYOVIEW STRESS TEST REPORT REFERRING PHYSICIAN: Dr. Zelaya. INDICATIONS: 1. Coronary artery disease. 2. Chest pain. BASELINE HEART RATE: 74 BASELINE BLOOD PRESSURE: 185/113 BASELINE EKG: Sinus rhythm with no ischemic changes. SUMMARY: The patient was injected with 10.46 mCi of technetium 99 Myoview and the resting images were obtained. Then the patient received 0.4 mg of Lexiscan followed by 31.1 mCi of technetium 99 Myoview. Throughout the test, there were no EKG changes. The resting and stress images were reviewed and compared in the short axis, horizontal long axis, and vertical long axis views. Review of the images showed good radiotracer uptake with no ischemia or infarction on SPECT images. SSS is 0. TID value 1.07. On the gated images, the left ventricle appeared to be normal size with normal contractility. Calculated ejection fraction 55%. CONCLUSIONS: 1. The patient tolerated Lexiscan well. 2. No ischemia or infarction on SPECT images. 3. Normal left ventricular size with normal contractility. Calculated ejection fraction 55%. Job ID: [id number] Dictated Date: 05/15/2016 16:42:23 Cigarette Making Machine Hopper Feeder Date: 05/15/2016 20:38:05 / yeny
== END ==
LOC: CARD 07:35
PROVIDERS: ATTEND Internal Medicine Cardiovascular Disease
DX: I25.10 Atherosclerotic heart disease of native coronary artery without angina pectoris (principal); I65.23 Occlusion and stenosis of bilateral carotid arteries; R07.89 Other chest pain; F41.9 Anxiety disorder, unspecified
CPT/HCPCS: 78452; 93017

== ENCOUNTER → 2016-05-21 | Outpatient (CLI) | payer MEDICARE ==
[~2016-05-21] MED LIST changes: -CATHETER FLUSH 10 ML SYR IV PRN; -REGADENOSON 0.4 MG/5 ML SYR (LEXISCAN) IV ONE
--- NOTE | 2016-05-22 15:05 | ECHOCARDIOGRAPHY REPORT ---
PROCEDURE PHYSICIAN: TEDDY HOANG DATE OF PROCEDURE: 05/21/2016 TWO DIMENSIONAL ECHOCARDIOGRAM REPORT PRIMARY PHYSICIAN: OTHER PHYSICIAN: REFERRING PHYSICIAN: Dr. Catherine Zelaya ORDERING PHYSICIAN: INDICATION FOR THE PROCEDURE: Coronary artery disease, chest pain. MEASUREMENTS DERIVED VALUES LV DIAMETER (LAX) NORMALS NORMALS Diastolic 4.5 (3.6-5.2) Eject. Fract. 50% (60%+/-6%) Systolic (2.3-3.9) Diastolic Vol. % Shortening (0.22-0.42) Systolic Vol. Aortic Root IVS THICKNESS Diastolic 1.3 (0.6-1.1) LVPW THICKNESS Diastolic 1.3 (0.6-1.1) LA DIAMETER Systolic 4.8 (2.1-3.7) FINDINGS: 1. Technical quality is good. 2. The left ventricle is normal in size with moderate left ventricular hypertrophy noted diffusely. Systolic function appeared to be normal. Estimated ejection fraction 50%. 3. The left atrium is dilated. No clot or thrombus were seen within the left atrium. 4. The right atrium and right ventricle are normal in size. No clot or thrombus were seen within the right side. 5. Mitral valve is normal in morphology with mild mitral regurgitation noted by color Doppler flow. No mitral valve prolapse. No mitral valve stenosis. 6. Aortic valve is trileaflet with normal opening and closing pattern. Mild aortic regurgitation noted by color Doppler flow. No aortic valve stenosis. 7. Tricuspid valve is normal in morphology with mild tricuspid regurgitation noted by color Doppler flow. Doppler across tricuspid valve estimated pulmonary artery pressure of 4+ right atrial pressure. 8. Pulmonic valve is normal in morphology with mild to moderate pulmonary regurgitation noted by color Doppler flow. CONCLUSION: 1. Moderate left ventricular hypertrophy with preserved systolic function. Estimated ejection fraction 50%. 2. Dilated left atrium. 3. Mild aortic regurgitation. Mild mitral regurgitation, mild tricuspid regurgitation, mild to moderate pulmonary regurgitation. 4. Estimated pulmonary artery pressure of 10 mmHg. Job ID: [id number] Dictated Date: 05/22/2016 14:26:26 Arboriculture Teacher Date: 05/22/2016 15:01:24 / maribell
== END ==
LOC: CARD 07:53
PROVIDERS: ATTEND Internal Medicine Cardiovascular Disease
DX: I25.10 Atherosclerotic heart disease of native coronary artery without angina pectoris (principal); I65.23 Occlusion and stenosis of bilateral carotid arteries; R07.89 Other chest pain; F41.9 Anxiety disorder, unspecified
CPT/HCPCS: 93306

== ENCOUNTER → 2016-06-06 | Outpatient (CLI) | payer MEDICARE ==
[2016-06-06 15:27] LABS: BILIRUBIN,URINE NEGATIVE (NEGATIVE); KETONES,URINE NEGATIVE (NEGATIVE); LEUKOCYTE ESTERASE ,URINE NEGATIVE (NEGATIVE); NITRITE,URINE NEGATIVE (NEGATIVE); PH,URINE 7 (5-9); PROTEIN,URINE 3+ (NEGATIVE); UROBILINOGEN,URINE NORMAL (NORMAL)
[2016-06-06 15:39] LABS: WBC,URINE RARE /HPF
[2016-06-06 15:46] LABS: ALBUMIN 3.7 G/DL (3.2-4.5); BILIRUBIN,TOTAL 0.2 MG/DL (0.1-1.0); CALCIUM 8.3 MG/DL (8.5-10.1); CREATININE SERUM 4.08 MG/DL (0.60-1.30); POTASSIUM 5.1 MMOL/L (3.6-5.0); TOTAL PROTEIN 6.2 G/DL (6.4-8.2)
== END ==
LOC: LAB 14:46
PROVIDERS: ATTEND Thoracic Surgery (Cardiothoracic Vascular Surgery)
DX: Z01.810 Encounter for preprocedural cardiovascular examination (principal); Z01.818 Encounter for other preprocedural examination; I65.23 Occlusion and stenosis of bilateral carotid arteries
CPT/HCPCS: 36415; 80053; 81000

== ENCOUNTER → 2016-06-06 | Outpatient (CLI) | payer MEDICARE ==
--- NOTE | 2016-06-06 18:08 | Diagnostic Imaging Report ---
EXAMINATION: PA and lateral views of the chest. INDICATION: Carotid artery stenosis. FINDINGS: There is a large bore venous tunneled catheter through the right IJ with the tip at distal SVC. The left subclavian vein demonstrates a port in place. The tip is at the cavoatrial junction. The heart size is normal. No effusion or pneumothorax. The mediastinum and elidia appear unremarkable. IMPRESSION: No acute process. Dictated by: Dictated on workstation # [id number]
== END ==
LOC: CARD 14:05
PROVIDERS: ATTEND Thoracic Surgery (Cardiothoracic Vascular Surgery)
DX: Z01.810 Encounter for preprocedural cardiovascular examination (principal); Z01.818 Encounter for other preprocedural examination; I65.23 Occlusion and stenosis of bilateral carotid arteries
CPT/HCPCS: 71020; 93005

== ENCOUNTER → 2016-06-20 | Outpatient (CLI) | payer MEDICARE | LOC: LAB 13:58 | PROVIDERS: ATTEND Nurse Practitioner | DX: I65.23 Occlusion and stenosis of bilateral carotid arteries (principal) ==

== ENCOUNTER 2016-07-06 06:13 | Emergency (ER) | payer MEDICARE ==
[~2016-07-06] VITALS: Ht 177.8 cm; Wt 74.4 kg
[2016-07-06] MEDS ORDERED: hydrALAZINE (APESOLINE) 20 MG/ML VIAL IV ONE ×2 (06:30→07:30)
[2016-07-06 06:41] LABS: BASOPHILS % (AUTO) 1 % (0-10); EOSINOPHILS # (AUTO) 0.3 10^3/uL (0.0-0.3); EOSINOPHILS % (AUTO) 5 % (0-10); LYMPHOCYTES # (AUTO) 0.9 X 10^3 (1.0-4.0); LYMPHOCYTES % (AUTO) 15 % (12-44); MEAN CORPUSCULAR HEMOGLOBIN 31 PG (25-34); MEAN CORPUSCULAR HGB CONC 32 G/DL (32-36); MEAN CORPUSCULAR VOLUME 96 FL (80-99); MEAN PLATELET VOLUME 9.4 FL (7.4-10.4); MONOCYTES # (AUTO) 0.5 X 10^3 (0.0-1.0); MONOCYTES % (AUTO) 9 % (0-12); NEUTROPHILS # (AUTO) 3.9 X 10^3 (1.8-7.8); NEUTROPHILS % (AUTO) 71 % (42-75); PLATELET COUNT 160 10^3/uL (130-400); RED CELL DISTRIBUTION WIDTH 14.4 % (10.0-14.5); WHITE BLOOD COUNT 5.6 10^3/uL (4.3-11.0)
[2016-07-06 06:54] LABS: ALBUMIN 3.9 G/DL (3.2-4.5); BILIRUBIN,TOTAL 0.3 MG/DL (0.1-1.0); CALCIUM 9.2 MG/DL (8.5-10.1); CREATININE SERUM 3.25 MG/DL (0.60-1.30); POTASSIUM 4.4 MMOL/L (3.6-5.0); TOTAL PROTEIN 6.5 G/DL (6.4-8.2)
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
[2016-07-06] MEDS ORDERED: ACETAMINOPHEN 500 MG TAB (TYLENOL) PO ONE (07:15)
[2016-07-06] MEDS ORDERED: LORazepam 0.5 MG (ATIVAN) TABLET PO ONE (08:30)
[2016-07-06 08:33] VITALS: BP 204/105
== END 2016-07-06 08:33 | disposition home or self-care (01) ==
LOC: EDUNIT# 06:13 → ER 06:14
DX: I12.0 Hypertensive chronic kidney disease with stage 5 chronic kidney disease or end stage renal disease (principal); N18.6 End stage renal disease; E11.9 Type 2 diabetes mellitus without complications; I25.10 Atherosclerotic heart disease of native coronary artery without angina pectoris; I48.2 Chronic atrial fibrillation; Z79.82 Long term (current) use of aspirin; Z79.899 Other long term (current) drug therapy; Z99.2 Dependence on renal dialysis; Z95.5 Presence of coronary angioplasty implant and graft; Z85.72 Personal history of non-Hodgkin lymphomas; Z85.850 Personal history of malignant neoplasm of thyroid; Z92.21 Personal history of antineoplastic chemotherapy
CPT/HCPCS: 36415; 80053; 85025; 96374; 96376

== ENCOUNTER 2016-07-31 14:24 | Outpatient (RCR) | payer MEDICARE ==
[2016-06-06 15:22] LABS: BASOPHILS # (AUTO) 0.1 10^3/uL (0.0-0.1); BASOPHILS % (AUTO) 1 % (0-10); EOSINOPHILS # (AUTO) 0.3 10^3/uL (0.0-0.3); EOSINOPHILS % (AUTO) 5 % (0-10); LYMPHOCYTES # (AUTO) 0.9 X 10^3 (1.0-4.0); LYMPHOCYTES % (AUTO) 14 % (12-44); MEAN CORPUSCULAR HEMOGLOBIN 31 PG (25-34); MEAN CORPUSCULAR HGB CONC 32 G/DL (32-36); MEAN CORPUSCULAR VOLUME 95 FL (80-99); MEAN PLATELET VOLUME 7.9 FL (7.4-10.4); MONOCYTES # (AUTO) 0.4 X 10^3 (0.0-1.0); MONOCYTES % (AUTO) 6 % (0-12); NEUTROPHILS # (AUTO) 5.1 X 10^3 (1.8-7.8); NEUTROPHILS % (AUTO) 75 % (42-75); PLATELET COUNT 231 10^3/uL (130-400); RED BLOOD COUNT 3.05 10^6/uL (4.35-5.85); RED CELL DISTRIBUTION WIDTH 14.2 % (10.0-14.5); WHITE BLOOD COUNT 6.9 10^3/uL (4.3-11.0)
[2016-06-20 14:36] LABS: BASOPHILS % (AUTO) 1 % (0-10); EOSINOPHILS # (AUTO) 0.1 10^3/uL (0.0-0.3); EOSINOPHILS % (AUTO) 2 % (0-10); LYMPHOCYTES # (AUTO) 0.9 X 10^3 (1.0-4.0); LYMPHOCYTES % (AUTO) 14 % (12-44); MEAN CORPUSCULAR HEMOGLOBIN 32 PG (25-34); MEAN CORPUSCULAR HGB CONC 34 G/DL (32-36); MEAN CORPUSCULAR VOLUME 94 FL (80-99); MEAN PLATELET VOLUME 8.5 FL (7.4-10.4); MONOCYTES # (AUTO) 0.9 X 10^3 (0.0-1.0); MONOCYTES % (AUTO) 14 % (0-12); NEUTROPHILS # (AUTO) 4.4 X 10^3 (1.8-7.8); NEUTROPHILS % (AUTO) 69 % (42-75); PLATELET COUNT 205 10^3/uL (130-400); RED BLOOD COUNT 3.22 10^6/uL (4.35-5.85); RED CELL DISTRIBUTION WIDTH 14.7 % (10.0-14.5); WHITE BLOOD COUNT 6.4 10^3/uL (4.3-11.0)
[2016-06-20 15:27] LABS: ALBUMIN 3.7 G/DL (3.2-4.5); CREATININE SERUM 1.59 MG/DL (0.60-1.30); PHOSPHORUS 1.7 MG/DL (2.3-4.7); POTASSIUM 3.3 MMOL/L (3.6-5.0)
[2016-07-03 13:56] LABS: BASOPHILS % (AUTO) 0 % (0-10); EOSINOPHILS # (AUTO) 0.1 10^3/uL (0.0-0.3); EOSINOPHILS % (AUTO) 3 % (0-10); LYMPHOCYTES # (AUTO) 0.7 X 10^3 (1.0-4.0); LYMPHOCYTES % (AUTO) 15 % (12-44); MEAN CORPUSCULAR HEMOGLOBIN 32 PG (25-34); MEAN CORPUSCULAR HGB CONC 33 G/DL (32-36); MEAN CORPUSCULAR VOLUME 97 FL (80-99); MEAN PLATELET VOLUME 8.6 FL (7.4-10.4); MONOCYTES # (AUTO) 0.5 X 10^3 (0.0-1.0); MONOCYTES % (AUTO) 10 % (0-12); NEUTROPHILS # (AUTO) 3.2 X 10^3 (1.8-7.8); NEUTROPHILS % (AUTO) 71 % (42-75); PLATELET COUNT 161 10^3/uL (130-400); RED BLOOD COUNT 3.14 10^6/uL (4.35-5.85); WHITE BLOOD COUNT 4.5 10^3/uL (4.3-11.0)
[2016-07-03 14:30] LABS: ALBUMIN 3.5 G/DL (3.2-4.5); BILIRUBIN,TOTAL 0.4 MG/DL (0.1-1.0); CALCIUM 8.6 MG/DL (8.5-10.1); CREATININE SERUM 3.23 MG/DL (0.60-1.30); TOTAL PROTEIN 5.9 G/DL (6.4-8.2)
[2016-07-03 15:28] LABS: THYROID STIMULATING HORMONE 8.41 UIU/ML (0.35-4.94)
[2016-07-18 15:11] LABS: BASOPHILS % (AUTO) 1 % (0-10); EOSINOPHILS # (AUTO) 0.2 10^3/uL (0.0-0.3); EOSINOPHILS % (AUTO) 5 % (0-10); LYMPHOCYTES # (AUTO) 0.8 X 10^3 (1.0-4.0); LYMPHOCYTES % (AUTO) 16 % (12-44); MEAN CORPUSCULAR HEMOGLOBIN 32 PG (25-34); MEAN CORPUSCULAR HGB CONC 33 G/DL (32-36); MEAN CORPUSCULAR VOLUME 97 FL (80-99); MEAN PLATELET VOLUME 8.6 FL (7.4-10.4); MONOCYTES # (AUTO) 0.4 X 10^3 (0.0-1.0); MONOCYTES % (AUTO) 9 % (0-12); NEUTROPHILS # (AUTO) 3.4 X 10^3 (1.8-7.8); NEUTROPHILS % (AUTO) 70 % (42-75); PLATELET COUNT 152 10^3/uL (130-400); RED BLOOD COUNT 3.65 10^6/uL (4.35-5.85); RED CELL DISTRIBUTION WIDTH 15.8 % (10.0-14.5); WHITE BLOOD COUNT 4.9 10^3/uL (4.3-11.0)
[~2016-07-31 14:24] MED LIST changes: +DARBEPOETIN 25 MCG/ML (CANCER CTR) 1 ML VIAL SC SCH
[2016-07-31 14:49] LABS: BASOPHILS % (AUTO) 1 % (0-10); EOSINOPHILS # (AUTO) 0.2 10^3/uL (0.0-0.3); EOSINOPHILS % (AUTO) 4 % (0-10); LYMPHOCYTES # (AUTO) 0.8 X 10^3 (1.0-4.0); LYMPHOCYTES % (AUTO) 15 % (12-44); MEAN CORPUSCULAR HEMOGLOBIN 32 PG (25-34); MEAN CORPUSCULAR HGB CONC 33 G/DL (32-36); MEAN CORPUSCULAR VOLUME 97 FL (80-99); MEAN PLATELET VOLUME 8.8 FL (7.4-10.4); MONOCYTES # (AUTO) 0.5 X 10^3 (0.0-1.0); MONOCYTES % (AUTO) 9 % (0-12); NEUTROPHILS % (AUTO) 72 % (42-75); PLATELET COUNT 148 10^3/uL (130-400); RED BLOOD COUNT 3.54 10^6/uL (4.35-5.85); RED CELL DISTRIBUTION WIDTH 13.9 % (10.0-14.5); WHITE BLOOD COUNT 5.6 10^3/uL (4.3-11.0)
== END 2016-09-04 | disposition home or self-care (01) ==
LOC: ONC 14:24
PROVIDERS: ATTEND Internal Medicine Hematology & Oncology
DX: C85.80 Other specified types of non-Hodgkin lymphoma, unspecified site (principal); D63.1 Anemia in chronic kidney disease; N18.4 Chronic kidney disease, stage 4 (severe); E11.9 Type 2 diabetes mellitus without complications; E03.9 Hypothyroidism, unspecified; E78.5 Hyperlipidemia, unspecified; G47.30 Sleep apnea, unspecified; I25.10 Atherosclerotic heart disease of native coronary artery without angina pectoris; I12.9 Hypertensive chronic kidney disease with stage 1 through stage 4 chronic kidney disease, or unspecified chronic kidney disease; G60.9 Hereditary and idiopathic neuropathy, unspecified; Z98.61 Coronary angioplasty status; Z79.4 Long term (current) use of insulin; Z79.899 Other long term (current) drug therapy
CPT/HCPCS: 36591; 80053; 80069; 83615; 84443; 85025; 96372; 99213

== ENCOUNTER 2016-10-10 14:55 | Outpatient (RCR) | payer MEDICARE ==
[2016-10-10 15:23] LABS: BASOPHILS # (AUTO) 0.1 10^3/uL (0.0-0.1); BASOPHILS % (AUTO) 1 % (0-10); EOSINOPHILS # (AUTO) 0.3 10^3/uL (0.0-0.3); EOSINOPHILS % (AUTO) 7 % (0-10); LYMPHOCYTES % (AUTO) 20 % (12-44); MEAN CORPUSCULAR HEMOGLOBIN 33 PG (25-34); MEAN CORPUSCULAR HGB CONC 34 G/DL (32-36); MEAN CORPUSCULAR VOLUME 97 FL (80-99); MEAN PLATELET VOLUME 8.4 FL (7.4-10.4); MONOCYTES # (AUTO) 0.4 X 10^3 (0.0-1.0); MONOCYTES % (AUTO) 8 % (0-12); NEUTROPHILS # (AUTO) 3.2 X 10^3 (1.8-7.8); NEUTROPHILS % (AUTO) 64 % (42-75); PLATELET COUNT 154 10^3/uL (130-400); RED BLOOD COUNT 3.42 10^6/uL (4.35-5.85); RED CELL DISTRIBUTION WIDTH 13.2 % (10.0-14.5)
[2016-10-10 15:58] LABS: ALBUMIN 3.5 GM/DL (3.2-4.5); BILIRUBIN,TOTAL 0.3 MG/DL (0.1-1.0); CALCIUM 7.6 MG/DL (8.5-10.1); POTASSIUM 3.4 MMOL/L (3.6-5.0); TOTAL PROTEIN 5.9 GM/DL (6.4-8.2)
[2016-10-10 16:09] LABS: CREATININE SERUM 2.48 MG/DL (0.60-1.30)
[2016-10-10 17:00] LABS: THYROID STIMULATING HORMONE 399.56 UIU/ML (0.35-4.94)
== END 2016-11-16 | disposition home or self-care (01) ==
LOC: ONC 14:55
PROVIDERS: ATTEND Internal Medicine Hematology & Oncology
DX: C85.80 Other specified types of non-Hodgkin lymphoma, unspecified site (principal); D63.1 Anemia in chronic kidney disease; N18.4 Chronic kidney disease, stage 4 (severe); E11.9 Type 2 diabetes mellitus without complications; E03.9 Hypothyroidism, unspecified; E78.5 Hyperlipidemia, unspecified; G47.30 Sleep apnea, unspecified; I25.10 Atherosclerotic heart disease of native coronary artery without angina pectoris; I12.9 Hypertensive chronic kidney disease with stage 1 through stage 4 chronic kidney disease, or unspecified chronic kidney disease; G60.9 Hereditary and idiopathic neuropathy, unspecified; Z98.61 Coronary angioplasty status; Z79.4 Long term (current) use of insulin; Z79.899 Other long term (current) drug therapy
CPT/HCPCS: 36591; 80053; 83615; 84443; 85025

== ENCOUNTER → 2016-10-16 | Outpatient (CLI) | payer MEDICARE ==
[~2016-10-16] MED LIST changes: -DARBEPOETIN 25 MCG/ML (CANCER CTR) 1 ML VIAL SC SCH
--- NOTE | 2016-10-16 12:27 | Diagnostic Imaging Report ---
CLINICAL INDICATION: Patient with cervical lymphadenopathy. Patient has lump under anterior jaw. EXAM: Axial CT scan of the neck soft tissue performed without IV contrast. Coronal and sagittal reformatted images were created. No IV contrast was given due to low kidney function. COMPARISON: CT scan of the neck soft tissue performed without IV contrast dated 05/13/2016. FINDINGS: There are interval postop changes seen to the right side of the neck with soft tissue architectural distortion and linear density extending from the level of the tail of the parotid all the way down to the hyoid bone. There is associated swelling and fluid anterior to the right sternocleidomastoid muscle and in the right side of the neck. There has also been placement of surgical clips along the right side of the neck. These may be related to lymph node dissection. There is no significant enlarged lymph node seen on this exam. There are stable too small lymph nodes in the bilateral level I-A regions which demonstrate fatty hilum and both measure 6 mm or less in size in the longest axis. There is another smaller lymph node in the posterior left level I-A region. There is no other significant lymphadenopathy. There is fat stranding and thickening involving the anterior aspect of the neck and platysma muscle suspected to be from postop changes. There is also mild asymmetry of the hypopharyngeal and laryngeal soft tissues suspected to be related to edema from postop changes. There is no evidence of fluid collection seen to suggest an abscess. There is slight increase in the subcentimeter lymph nodes in the upper mediastinal region and inferior to the right thyroid gland which may be related to recent postop changes and reactive. Again seen central line overlying the left chest region which is incompletely visualized. There is interval placement of a right central line with tip partially visualized in the superior vena cava. There is stable punctate calcifications within the bilateral submandibular glands. Otherwise the salivary glands are unremarkable besides the increased fat stranding from postop changes. The visualized portions of the tongue, sublingual area and submandibular regions are otherwise unremarkable. The nasopharynx, oropharynx, and hypopharyngeal regions are unremarkable. There is cervical spine degenerative disease. There is mild mucosal thickening involving both maxillary sinuses and ethmoid sinus. There is small amount of fluid in the right mastoid air cells with some sclerosis seen. IMPRESSION: 1: There are interval postop changes to the right side of the neck suspected to be related to lymph node dissection. There is associated edema, fat stranding, and architectural distortion of the right neck region. 2: There is no evidence of lymphadenopathy seen on this exam. 3: There are small level I lymph nodes which do not appear pathologic and are stable. Dictated by: Dictated on workstation # [id number]
== END ==
LOC: RAD 10:38
PROVIDERS: ATTEND Nurse Practitioner Adult Health
DX: C83.38 Diffuse large B-cell lymphoma, lymph nodes of multiple sites (principal); M47.812 Spondylosis without myelopathy or radiculopathy, cervical region; Z98.890 Other specified postprocedural states
CPT/HCPCS: 70490

== ENCOUNTER 2017-01-23 10:37 | Outpatient (RCR) | payer MEDICARE ==
[2016-11-29 12:58] LABS: BASOPHILS % (AUTO) 1 % (0-10); EOSINOPHILS # (AUTO) 0.3 10^3/uL (0.0-0.3); EOSINOPHILS % (AUTO) 5 % (0-10); HEMATOCRIT 31 % (40-54); HEMOGLOBIN 10.1 G/DL (13.3-17.7); LYMPHOCYTES # (AUTO) 0.7 X 10^3 (1.0-4.0); LYMPHOCYTES % (AUTO) 11 % (12-44); MEAN CORPUSCULAR HEMOGLOBIN 34 PG (25-34); MEAN CORPUSCULAR HGB CONC 33 G/DL (32-36); MEAN CORPUSCULAR VOLUME 101 FL (80-99); MEAN PLATELET VOLUME 8.8 FL (7.4-10.4); MONOCYTES # (AUTO) 0.5 X 10^3 (0.0-1.0); MONOCYTES % (AUTO) 7 % (0-12); NEUTROPHILS # (AUTO) 4.8 X 10^3 (1.8-7.8); NEUTROPHILS % (AUTO) 76 % (42-75); PLATELET COUNT 225 10^3/uL (130-400); RED BLOOD COUNT 3.01 10^6/uL (4.35-5.85); RED CELL DISTRIBUTION WIDTH 12.4 % (10.0-14.5); WHITE BLOOD COUNT 6.3 10^3/uL (4.3-11.0)
[~2017-01-23 10:37] MED LIST changes: +DARBEPOETIN 10 MCG/0.4 ML ARANESP IJ SCH
[2017-01-23 11:13] LABS: BASOPHILS # (AUTO) 0.1 10^3/uL (0.0-0.1); BASOPHILS % (AUTO) 1 % (0-10); EOSINOPHILS # (AUTO) 0.5 10^3/uL (0.0-0.3); EOSINOPHILS % (AUTO) 11 % (0-10); HEMATOCRIT 39 % (40-54); HEMOGLOBIN 13.1 G/DL (13.3-17.7); LYMPHOCYTES % (AUTO) 20 % (12-44); MEAN CORPUSCULAR HEMOGLOBIN 34 PG (25-34); MEAN CORPUSCULAR HGB CONC 34 G/DL (32-36); MEAN CORPUSCULAR VOLUME 101 FL (80-99); MEAN PLATELET VOLUME 9.1 FL (7.4-10.4); MONOCYTES # (AUTO) 0.4 X 10^3 (0.0-1.0); MONOCYTES % (AUTO) 8 % (0-12); NEUTROPHILS % (AUTO) 60 % (42-75); PLATELET COUNT 159 10^3/uL (130-400); RED BLOOD COUNT 3.87 10^6/uL (4.35-5.85); RED CELL DISTRIBUTION WIDTH 13.8 % (10.0-14.5)
[2017-01-23 11:33] LABS: ALBUMIN 3.8 GM/DL (3.2-4.5); BILIRUBIN,TOTAL 0.3 MG/DL (0.1-1.0); CALCIUM 9.2 MG/DL (8.5-10.1); CREATININE SERUM 4.03 MG/DL (0.60-1.30); POTASSIUM 3.9 MMOL/L (3.6-5.0); TOTAL PROTEIN 6.6 GM/DL (6.4-8.2)
== END 2017-02-27 | disposition home or self-care (01) ==
LOC: ONC 10:37
PROVIDERS: ATTEND Internal Medicine Hematology & Oncology
DX: C85.80 Other specified types of non-Hodgkin lymphoma, unspecified site (principal); D63.1 Anemia in chronic kidney disease; N18.4 Chronic kidney disease, stage 4 (severe); E11.9 Type 2 diabetes mellitus without complications; E03.9 Hypothyroidism, unspecified; E78.5 Hyperlipidemia, unspecified; G47.30 Sleep apnea, unspecified; I25.10 Atherosclerotic heart disease of native coronary artery without angina pectoris; I12.9 Hypertensive chronic kidney disease with stage 1 through stage 4 chronic kidney disease, or unspecified chronic kidney disease; G60.9 Hereditary and idiopathic neuropathy, unspecified; Z98.61 Coronary angioplasty status; Z79.4 Long term (current) use of insulin; Z79.899 Other long term (current) drug therapy
CPT/HCPCS: 36591; 80053; 83615; 84443; 85025; 96372

== ENCOUNTER 2017-02-05 09:08 | Emergency (ER) | payer MEDICARE ==
[~2017-02-05] VITALS: Ht 177.8 cm; Wt 79.2 kg
[~2017-02-05 09:08] MED LIST changes: -DARBEPOETIN 10 MCG/0.4 ML ARANESP IJ SCH
--- OUTSIDE RECORDS SUMMARY | 2017-02-05 09:13 | XMS REPORT | Clinical Summary ---
Author Author [facility] Organization [facility] Address Unknown Phone Unavailable Care Team Providers Care Morgue Librarian Name Role Phone PCP Unavailable Source Comments Some departments are not documenting in the electronic medical record. If you do not see the information that you expected, contact Release of Information in the Health Information Management department at [phone] for further assistance in locating additional records.[facility] Allergies Active Allergy Reactions Severity Noted Date Comments Nitroglycerin SEE COMMENTS 04/22/2013 Blood pressure drops rapidly Current Medications Prescription [...] capsule Active Problems No known active problems Encounters Date Type Specialty Care Team Description 11/25/2016 Documentation Transplant Surgery Milla Augustin RN from Last 3 Months Family History Medical History Relation Name Comments Heart Disease Father Heart Disease Mother Relation Name Status Comments Father Mother Social History Tobacco Use Types Packs/Day Years Used Date Never Smoker Smokeless Tobacco: Never Used Alcohol Use Drinks/Week oz/Week Comments No Sex Assigned at Date Recorded Not on file Last Filed Vital Signs Vital Sign Reading Time Taken Blood Pressure 161/94 04/22/2013 8:35 AM [employer] ATTENDANT Pulse 95 04/22/2013 8:35 AM [employer] ATTENDANT Temperature 36.9 C (98.4 F) 04/22/2013 8:35 AM [employer] ATTENDANT Respiratory Rate - - Oxygen Saturation 93% 04/22/2013 8:35 AM [employer] ATTENDANT Inhaled Oxygen - - Concentration Weight 83.3 kg (183 lb 9.6 oz) 04/22/2013 8:35 AM [employer] VA[employer] ATTENDANT Height 172.1 cm (5' 7.75") 04/22/2013 8:35 AM [employer] ATTENDANT Body Mass Index 28.12 04/22/2013 8:35 AM [employer]UR VA[employer] ATTENDANT Plan of Treatment Health Maintenance Due Date Last Done Comments HEPATITIS C SCREENING 1950 PHYSICAL (COMPREHENSIVE) 01/06/1956 EXAM PERTUSSIS VACCINE 01/06/1960 TETANUS VACCINE 1966 COLORECTAL CANCER 1999 SCREENING SHINGLES VACCINE 2009 PREVNAR/PNEUMOVAX (#1) 2014 INFLUENZA VACCINE 09/17/2016 Results Not on filefrom Last 3 Months
--- OUTSIDE RECORDS SUMMARY | 2017-02-05 09:13 | XMS REPORT | Continuity of Care Document ---
Author Author [facility] Organization [facility] Address Unknown Phone Unavailable Care Team Providers Care Dock Hand Name Role Phone [employer] Unavailable Unavailable Problems Medications Allergies, Adverse Reactions, Alerts Immunizations Results Vital Signs Encounters Procedures Plan of Care Social History Assessment and Plan Family History Value Date Source Advance Directives Order Name Results Value Date Source
--- OUTSIDE RECORDS SUMMARY | 2017-02-05 09:13 | XMS REPORT | Encounter Summary ---
Author Author [facility] Organization [facility] Address Unknown Phone Unavailable Care Team Providers Care Junior Linux Administrator Name Role Phone PCP Unavailable Encounter Details Date Type Department Care Team Description 11/25/2016 Documentation Center for Milla Augustin RN Transplantation-Kidney/Pa ncreas Nep [address] [place] [address] Social History Tobacco Use Types Packs/Day Years Used Date Never Smoker Smokeless Tobacco: Never Used Alcohol Use Drinks/Week oz/Week Comments No Sex Assigned at Date Recorded Not on file as of this encounter Progress Notes * Milla Augustin RN - 11/25/2016 3:49 PM CDT Discussed with Dr. Sharif. 66 y.o. Male patient of Dr. Reyes ESRD d/t HTN/DM No biopsy NOD/2728 date of 03/06/2015 ? 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 Denied. Called patient with decision. States he's no longer on Brilinta. Asked what the next step was. Offered to refer him to alternate txp centers. Hung up. in this encounter Plan of Treatment Not on fileas of this encounter Visit Diagnoses Not on filein this encounter
[2017-02-05] MEDS ORDERED: hydrALAZINE (APESOLINE) 20 MG/ML VIAL IV ONE (09:30)
[2017-02-05] MEDS ORDERED: ASPIRIN 81 MG CHEW (CHILDREN'S ASA) PO ONE (09:30)
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
[2017-02-05 09:37] LABS: BASOPHILS # (AUTO) 0.1 10^3/uL (0.0-0.1); BASOPHILS % (AUTO) 1 % (0-10); EOSINOPHILS # (AUTO) 0.4 10^3/uL (0.0-0.3); EOSINOPHILS % (AUTO) 6 % (0-10); LYMPHOCYTES % (AUTO) 16 % (12-44); MEAN CORPUSCULAR HEMOGLOBIN 34 PG (25-34); MEAN CORPUSCULAR HGB CONC 35 G/DL (32-36); MEAN CORPUSCULAR VOLUME 97 FL (80-99); MEAN PLATELET VOLUME 9.2 FL (7.4-10.4); MONOCYTES # (AUTO) 0.6 X 10^3 (0.0-1.0); MONOCYTES % (AUTO) 10 % (0-12); NEUTROPHILS # (AUTO) 4.2 X 10^3 (1.8-7.8); NEUTROPHILS % (AUTO) 67 % (42-75); PLATELET COUNT 162 10^3/uL (130-400); RED BLOOD COUNT 3.87 10^6/uL (4.35-5.85); RED CELL DISTRIBUTION WIDTH 13.2 % (10.0-14.5); WHITE BLOOD COUNT 6.2 10^3/uL (4.3-11.0)
[2017-02-05 09:55] LABS: ALANINE AMINOTRANSFERASE 10 U/L (0-55); ALBUMIN 3.9 GM/DL (3.2-4.5); ANION GAP 9 MMOL/L (5-14); ASPARTATE AMINO TRANSFERASE 11 U/L (5-34); BILIRUBIN,TOTAL 0.4 MG/DL (0.1-1.0); BLOOD UREA NITROGEN 19 MG/DL (7-18); BUN/CREATININE RATIO 7; CALCIUM 8.5 MG/DL (8.5-10.1); CARBON DIOXIDE 32 MMOL/L (21-32); CHLORIDE 99 MMOL/L (98-107); CREATININE SERUM 2.65 MG/DL (0.60-1.30); GFR ESTIMATED 24; GLUCOSE 143 MG/DL (70-105); MAGNESIUM 1.8 MG/DL (1.8-2.4); POTASSIUM 3.8 MMOL/L (3.6-5.0); SODIUM 140 MMOL/L (135-145); TOTAL PROTEIN 6.9 GM/DL (6.4-8.2)
--- NOTE | 2017-02-05 10:02 | Diagnostic Imaging Report ---
EXAMINATION: Portable upright radiograph of the chest. INDICATION: Chest pain. FINDINGS: The lungs are clear. The heart size is normal. No effusion or pneumothorax. The mediastinum and elidia appear unremarkable. A right internal jugular dialysis catheter is in place with the tip in the upper right atrium level. IMPRESSION: No acute process. Dictated by: Dictated on workstation # [id number]
[2017-02-05 10:05] LABS: MYOGLOBIN SERUM 255.6 NG/ML (10.0-92.0)
[2017-02-05 11:52] LABS: MYOGLOBIN SERUM 265.6 NG/ML (10.0-92.0); TROPONIN I < 0.30 NG/ML (<0.30)
[2017-02-05 12:19] VITALS: BP 132/78
== END 2017-02-05 12:19 | disposition home or self-care (01) ==
LOC: EDUNIT# 09:08 → ER 09:09
DX: R07.9 Chest pain, unspecified (principal); R03.0 Elevated blood-pressure reading, without diagnosis of hypertension; E11.9 Type 2 diabetes mellitus without complications; E03.9 Hypothyroidism, unspecified; M10.9 Gout, unspecified; I48.91 Unspecified atrial fibrillation; I25.10 Atherosclerotic heart disease of native coronary artery without angina pectoris; E78.00 Pure hypercholesterolemia, unspecified; I10 Essential (primary) hypertension; Z85.850 Personal history of malignant neoplasm of thyroid; Z85.72 Personal history of non-Hodgkin lymphomas; Z99.2 Dependence on renal dialysis; Z79.82 Long term (current) use of aspirin; Z87.442 Personal history of urinary calculi; Z91.14 Patient's other noncompliance with medication regimen; Z79.4 Long term (current) use of insulin; Z87.01 Personal history of pneumonia (recurrent); Z90.89 Acquired absence of other organs; Z95.5 Presence of coronary angioplasty implant and graft; Z92.21 Personal history of antineoplastic chemotherapy; Z92.3 Personal history of irradiation; Z82.49 Family history of ischemic heart disease and other diseases of the circulatory system; Z80.9 Family history of malignant neoplasm, unspecified
CPT/HCPCS: 36415; 71010; 80053; 83735; 83874; 84484; 85025; 85610; 85730; 93005; 93041; 96374

== ENCOUNTER 2017-10-01 22:49 | Emergency (ER) | payer MEDICARE ==
[~2017-10-01] VITALS: Ht 177.8 cm; Wt 79.2 kg
[~2017-10-01 22:49] MED LIST changes: +HYDR-34 PO
[2017-10-01] MEDS ORDERED: TETANUS,DIPTH,PERTUSS P/F (BOOSTRIX) 0.5 ML VIAL IM STA (23:13)
[2017-10-01] MEDS ORDERED: LOSA25TA21 (23:22)
[2017-10-01] MEDS ORDERED: HYDR-3820 (23:22)
--- OUTSIDE RECORDS SUMMARY | 2017-10-01 23:42 | XMS REPORT | Clinical Summary ---
Author Author [facility] Organization [facility] Address Unknown Phone Unavailable Care Team Providers Care Casing Crew Name Role Phone Eryn Jewell RN Unavailable Unavailable Catherine Zelaya MD PCP Carlos Colvin MD Unavailable Unavailable Source Comments Some departments are not documenting in the electronic medical record. If you do not see the information that you expected, contact Release of Information in the Health Information Management department at [phone] for further assistance in locating additional records.[facility] Allergies Active Allergy Reactions Severity Noted [...] capsule Active Problems No known active problems Family History Medical History Relation Name Comments Heart Disease Father Heart Disease Mother Relation Name Status Comments Father Mother Social History Tobacco Use Types Packs/Day Years Used Date Never Smoker Smokeless Tobacco: Never Used Alcohol Use Drinks/Week oz/Week Comments No Sex Assigned at Date Recorded Not on file Last Filed Vital Signs Vital Sign Reading Time Taken Blood Pressure 161/94 04/22/2013 8:35 AM INDUSTRIAL MAINTENANCE TECH Pulse 95 04/22/2013 8:35 AM INDUSTRIAL MAINTENANCE TECH Temperature 36.9 C (98.4 F) 04/22/2013 8:35 AM INDUSTRIAL MAINTENANCE TECH Respiratory Rate - - Oxygen Saturation 93% 04/22/2013 8:35 AM INDUSTRIAL MAINTENANCE TECH Inhaled Oxygen - - Concentration Weight 83.3 kg (183 lb 9.6 oz) 04/22/2013 8:35 AM INDUSTRIAL MAINTENANCE TECH Height 172.1 cm (5' 7.75") 04/22/2013 8:35 AM INDUSTRIAL MAINTENANCE TECH Body Mass Index 28.12 04/22/2013 8:35 AM INDUSTRIAL MAINTENANCE TECH Plan of Treatment Health Maintenance Due Date Last Done Comments HEPATITIS C SCREENING 1950 PHYSICAL (COMPREHENSIVE) 01/06/1956 EXAM PERTUSSIS VACCINE 01/06/1960 TETANUS VACCINE 1966 COLORECTAL CANCER 1999 SCREENING SHINGLES RECOMBINANT 1999 VACCINE (1 of 2) PNEUMONIA (PCV13/PPSV23) 2014 VACCINES (1 of 2 - PCV13) INFLUENZA VACCINE 11/17/2017 Results Not on filefrom Last 3 Months
[2017-10-01 23:49] LABS: BASOPHILS % (AUTO) 0 % (0-10); EOSINOPHILS % (AUTO) 0 % (0-10); HEMATOCRIT 37 % (40-54); HEMOGLOBIN 12.8 G/DL (13.3-17.7); LYMPHOCYTES # (AUTO) 0.4 X 10^3 (1.0-4.0); LYMPHOCYTES % (AUTO) 2 % (12-44); MEAN CORPUSCULAR HEMOGLOBIN 34 PG (25-34); MEAN CORPUSCULAR HGB CONC 35 G/DL (32-36); MEAN CORPUSCULAR VOLUME 98 FL (80-99); MEAN PLATELET VOLUME 8.9 FL (7.4-10.4); MONOCYTES # (AUTO) 0.8 X 10^3 (0.0-1.0); MONOCYTES % (AUTO) 5 % (0-12); NEUTROPHILS # (AUTO) 14.7 X 10^3 (1.8-7.8); NEUTROPHILS % (AUTO) 92 % (42-75); PLATELET COUNT 147 10^3/uL (130-400); RED BLOOD COUNT 3.76 10^6/uL (4.35-5.85); RED CELL DISTRIBUTION WIDTH 12.2 % (10.0-14.5); WHITE BLOOD COUNT 15.9 10^3/uL (4.3-11.0)
--- OUTSIDE RECORDS SUMMARY | 2017-10-01 23:54 | XMS REPORT | CCD ---
Author Author Catherine Zelaya Organization Catherine Zelaya MD, [facility] Address [address] [place] [address] Phone Care Team Providers Care Consumer Lending Manager Name Role Phone Catherine Zelaya PP Unavailable CCM Unavailable Summary Purpose Interface Exchange Insurance Providers Payer name Policy type / Coverage type Covered libertarian ID Effective Begin Date Effective End Date WPS Medicare Part B [id number] 2014 Unknown [facility] [id number] 2014 Unknown Family history Son Diagnosis Age At Onset No Family Disease Entered N/A Brother Diagnosis Age At Onset Heart disease Unknown Sister Diagnosis Age At Onset No Family Disease Entered N/A Mother Diagnosis Age At Onset Breast cancer Unknown Heart disease Unknown Father Diagnosis Age At Onset Cancer Unknown Brother Diagnosis Age At Onset No Family Disease Entered N/A Son Diagnosis Age At Onset No Family Disease Entered N/A Social History Social History Element Codes Description Effective Dates Employment Unknown Currently unemployed 04/23/2011 Marital status Unknown 10/24/2010 Living arrangements Unknown House 10/24/[address]: 558363626 Nonsmoker 10/24/[address]: 063475319 Never drinks alcohol 10/24/2010 Has the patient ever used illegal drugs? Unknown Has never used illegal drugs 10/24/2010 Allergies, Adverse Reactions, Alerts Allergies, Adverse Reactions, Alerts data not found Past Medical History Illness Codes Condition Status Onset Date Resolved Date Chronic kidney disease, stage 5 ICD-9: 585.5 ICD-10: N18.5 Active 09/24/2015 Unknown Essential (primary) hypertension ICD-9: 401.9 ICD-10: I10 Active 03/07/2016 Unknown 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-9: 250.02 ICD-10: E11.21 Active 03/07/2016 Unknown Gastro-esophageal reflux disease without esophagitis ICD-9: 530.81 ICD-10: K21.9 Active 05/20/2016 Unknown Hypothyroidism, unspecified ICD-9: 244.9 ICD-10: E03.9 Active 03/07/2016 Unknown Low back pain ICD-9: 724.2 ICD-10: M54.5 Active 10/11/2016 Unknown Slow transit constipation ICD-9: 564.01 ICD-10: K59.01 Active 09/24/2015 Unknown Occlusion and stenosis of bilateral carotid arteries ICD-9: 433.10 ICD-10: I65.23 Active 05/07/2016 Unknown Cough ICD-9: 786.2 ICD-10: R05 Active 04/23/2016 Unknown Vomiting without nausea ICD-9: 787.03 ICD-10: R11.11 Active 04/23/2016 Unknown Other retention of urine ICD-9: 788.29 ICD-10: R33.8 Active 04/22/2016 Unknown End stage renal disease ICD-9: 585.6 ICD-10: N18.6 Active 02/20/2015 Unknown Encounter for immunization ICD-9: V06.6 ICD-10: Z23 Active 11/23/2015 Unknown Chronic obstructive pulmonary disease, unspecified ICD-9: 496 ICD-10: J44.9 Active 11/12/2015 Unknown Dyspnea, unspecified ICD-9: 786.09 ICD-10: R06.00 Active 11/12/2015 Unknown Obstructive sleep apnea (adult) (pediatric) ICD-9: 327.23 ICD-10: G47.33 Active 11/12/2015 Unknown Contusion of other part of head, initial encounter ICD-9: 920 ICD-10: S00.83XA Active 10/19/2015 Unknown Headache ICD-9: 784.0 ICD-10: R51 Active 10/19/2015 Unknown Dizziness and giddiness ICD-9: 780.4 ICD-10: R42 Active 09/24/2015 Unknown Gastroparesis ICD-9: 536.3 ICD-10: K31.84 Active 02/21/2014 Unknown Nausea with vomiting, unspecified ICD-9: 787.01 ICD-10: R11.2 Active 04/01/2014 Unknown Pneumonia due to other specified bacteria ICD-9: 482.89 ICD-10: J15.8 Active 08/24/2015 Unknown Shortness of breath ICD-9: 786.05 ICD-10: R06.02 Active 08/24/2015 Unknown Wheezing ICD-9: 786.07 ICD-10: R06.2 Active 08/24/2015 Unknown Onycholysis ICD-9: 703.8 ICD-10: L60.1 Active 08/07/2015 Unknown Other nail disorders ICD-9: 703.9 ICD-10: L60.8 Active 08/07/2015 Unknown Encounter for follow-up examination after completed treatment for conditions other than malignant neoplasm ICD-9: V67.59 ICD-10: Z09 Active 02/20/2015 Unknown Hypoxemia ICD-9: 799.02 ICD-10: R09.02 Active 02/20/2015 Unknown Constipation, unspecified ICD-9: 564.00 ICD-10: K59.00 Active 12/15/2014 Unknown Open wound of left foot ICD-9: 892.0 Active 09/05/2014 Unknown ACUTE BRONCHITIS ICD-9 : 466.0 Active 10/13/2012 Unknown Acute renal failure superimposed on stage 4 chronic kidney disease ICD-9: 584.9 Active 05/17/2013 Unknown COUGH ICD-9: 786.2 Active 07/19/2014 Unknown Hypotension ICD-9: 458.9 Active 05/17/2013 Unknown Chronic renal failure, stage 4 (severe) ICD-9: 585.4 Active Unknown Nausea and vomiting ICD-9: 787.01 Active 04/01/2014 Unknown HEADACHE ICD-9: 784.0 Active 03/14/2014 Unknown Nausea ICD-9: 787.02 Active 03/14/2014 Unknown Peripheral neuropathy ICD-9: 356.9 Active 03/14/2014 Unknown DIABETES TYPE II ICD-9 : 250.00 Active 02/21/2014 Unknown Gastroparesis ICD-9: 536.3 Active 02/21/2014 Unknown HYPOTHYROIDISM ICD-9: 244.9 Active 02/21/2014 Unknown Dysuria ICD-9: 788.1 Active 01/31/2014 Unknown Elevated white blood cell count ICD-9: 288.60 Active 2013 Unknown Low back pain ICD-9: 724.2 Active 01/18/2014 Unknown Neck pain ICD-9: 723.1 Active 01/18/2014 Unknown VACCIN FOR INFLUENZA ICD-9: V04.81 ICD-10: Z23 Active 11/11/2013 Unknown Abdominal pain ICD-9: 789.00 Active 08/19/2013 Unknown DM W/O COMPLICATION TYPE II, UNCONTROLLED ICD-9: 250.02 Active 08/02/2013 Unknown ESSENTIAL HYPERTENSION ICD-9: 401.9 Active 08/02/2013 Unknown ANEMIA ICD-9: 285.9 Active 06/07/2013 Unknown Pneumonia ICD-9: 486 Active 06/07/2013 Unknown Gastroenteritis ICD-9 : 558.9 Active 05/17/2013 Unknown Diabetic peripheral neuropathy ICD-9: 250.60 Active 04/29/2013 Unknown Encounter for long-term (current) use of other medications ICD-9: V58.69 Active 04/29/2013 Unknown Noncompliance ICD-9: V15.81 Active 03/09/2013 Unknown Abscess, dental ICD-9 : 522.5 Active 12/11/2012 Unknown VACCIN FOR INFLUENZA ICD-9: V04.81 Active 11/10/2012 Unknown Rib pain on left side ICD-9: 786.50 Active 09/17/2012 Unknown Syncope ICD-9: 780.2 Active 09/17/2012 Unknown Fall at fpc ICD-9: E888.9 Active 06/15/2012 Unknown Orthostatic hypotension ICD-9: 458.0 Active 06/15/2012 Unknown Hypothryroidism Unknown Active 02/03/2012 Unknown Mouth dryness ICD-9: 527.7 Active 01/02/2012 Unknown Thrush ICD-9: 112.0 Active 11/21/2011 Unknown Lymphoma ICD-9: 202.80 Active 06/24/2011 Unknown Depression Unknown Active 04/23/2011 Unknown Depression ICD-9: 311 Active 04/23/2011 Unknown Diabetes Unknown Active 10/24/2010 Unknown Diabetes mellitus Type 1 Unknown Active 10/24/2010 Unknown Hypertension Unknown Active 10/24/2010 Unknown Hypothyroid Unknown Active 10/24/2010 Unknown neuropathy Unknown Active 10/24/2010 Unknown Hyperlipidemia ICD-9: 272.4 Active 10/24/2010 Unknown Mycoplasma pneumonia ICD-9: 483.0 Active 10/24/2010 Unknown OBESITY ICD-9: 278.00 Active 10/24/2010 Unknown Problems Condition Codes Effective Dates Condition Status Chronic kidney disease, stage 5 ICD-9: 585.5 ICD-10: N18.5 09/24/2015 Active Essential (primary) hypertension ICD-9: 401.9 ICD-10: I10 03/07/2016 Active 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-9: 250.02 ICD-10: E11.21 03/07/2016 Active Gastro-esophageal reflux disease without esophagitis ICD-9: 530.81 ICD-10: K21.9 05/20/2016 Active Hypothyroidism, unspecified ICD-9: 244.9 ICD-10: E03.9 03/07/2016 Active Low back pain ICD-9: 724.2 ICD-10: M54.5 10/11/2016 Active Slow transit constipation ICD-9: 564.01 ICD-10: K59.01 09/24/2015 Active Occlusion and stenosis of bilateral carotid arteries ICD-9: 433.10 ICD-10: I65.23 05/07/2016 Active Cough ICD-9: 786.2 ICD-10: R05 04/23/2016 Active Vomiting without nausea ICD-9: 787.03 ICD-10: R11.11 04/23/2016 Active Other retention of urine ICD-9: 788.29 ICD-10: R33.8 04/22/2016 Active End stage renal disease ICD-9: 585.6 ICD-10: N18.6 02/20/2015 Active Encounter for immunization ICD-9: V06.6 ICD-10: Z23 11/23/2015 Active Chronic obstructive pulmonary disease, unspecified ICD-9: 496 ICD-10: J44.9 11/12/2015 Active Dyspnea, unspecified ICD-9: 786.09 ICD-10: R06.00 11/12/2015 Active Obstructive sleep apnea (adult) (pediatric) ICD-9: 327.23 ICD-10: G47.33 11/12/2015 Active Contusion of other part of head, initial encounter ICD-9: 920 ICD-10: S00.83XA 10/19/2015 Active Headache ICD-9: 784.0 ICD-10: R51 10/19/2015 Active Dizziness and giddiness ICD-9: 780.4 ICD-10: R42 09/24/2015 Active Gastroparesis ICD-9: 536.3 ICD-10: K31.84 02/21/2014 Active Nausea with vomiting, unspecified ICD-9: 787.01 ICD-10: R11.2 04/01/2014 Active Pneumonia due to other specified bacteria ICD-9: 482.89 ICD-10: J15.8 08/24/2015 Active Shortness of breath ICD-9: 786.05 ICD-10: R06.02 08/24/2015 Active Wheezing ICD-9: 786.07 ICD-10: R06.2 08/24/2015 Active Onycholysis ICD-9: 703.8 ICD-10: L60.1 08/07/2015 Active Other nail disorders ICD-9: 703.9 ICD-10: L60.8 08/07/2015 Active Encounter for follow-up examination after completed treatment for conditions other than malignant neoplasm ICD-9: V67.59 ICD-10: Z09 02/20/2015 Active Hypoxemia ICD-9: 799.02 ICD-10: R09.02 02/20/2015 Active Constipation, unspecified ICD-9: 564.00 ICD-10: K59.00 12/15/2014 Active Open wound of left foot ICD-9: 892.0 09/05/2014 Active ACUTE BRONCHITIS ICD-9 : 466.0 10/13/2012 Active Acute renal failure superimposed on stage 4 chronic kidney disease ICD-9: 584.9 Active COUGH ICD-9: 786.2 07/19/2014 Active Hypotension ICD-9: 458.9 05/17/2013 Active Chronic renal failure, stage 4 (severe) ICD-9: 585.4 04/01/2014 Active Nausea and vomiting ICD-9: 787.01 04/01/2014 Active HEADACHE ICD-9: 784.0 03/14/2014 Active Nausea ICD-9: 787.02 03/14/2014 Active Peripheral neuropathy ICD-9: 356.9 03/14/2014 Active DIABETES TYPE II ICD-9 : 250.00 02/21/2014 Active Gastroparesis ICD-9: 536.3 02/21/2014 Active HYPOTHYROIDISM ICD-9: 244.9 02/21/2014 Active Dysuria ICD-9: 788.1 01/31/2014 Active Elevated white blood cell count ICD-9: 288.60 01/31/2014 Active Low back pain ICD-9: 724.2 01/18/2014 Active Neck pain ICD-9: 723.1 01/18/2014 Active VACCIN FOR INFLUENZA ICD-9: V04.81 ICD-10: Z23 11/11/2013 Active Abdominal pain ICD-9: 789.00 08/19/2013 Active DM W/O COMPLICATION TYPE II, UNCONTROLLED ICD-9: 250.02 08/02/2013 Active ESSENTIAL HYPERTENSION ICD-9: 401.9 08/02/2013 Active ANEMIA ICD-9: 285.9 06/07/2013 Active Pneumonia ICD-9: 486 06/07/2013 Active Gastroenteritis ICD-9 : 558.9 05/17/2013 Active Diabetic peripheral neuropathy ICD-9: 250.60 04/29/2013 Active Encounter for long-term (current) use of other medications ICD-9: V58.69 2013 Active Noncompliance ICD-9: V15.81 03/09/2013 Active Abscess, dental ICD-9 : 522.5 12/11/2012 Active VACCIN FOR INFLUENZA ICD-9: V04.81 11/10/2012 Active Rib pain on left side ICD-9: 786.50 09/17/2012 Active Syncope ICD-9: 780.2 09/17/2012 Active Fall at fpc ICD-9: E888.9 06/15/2012 Active Orthostatic hypotension ICD-9: 458.0 06/15/2012 Active Hypothryroidism Unknown 02/03/2012 Active Mouth dryness ICD-9: 527.7 01/02/2012 Active Thrush ICD-9: 112.0 11/21/2011 Active Lymphoma ICD-9: 202.80 06/24/2011 Active Depression Unknown 04/23/2011 Active Depression ICD-9: 311 04/23/2011 Active Diabetes Unknown 10/24/2010 Active Diabetes mellitus Type 1 Unknown 10/24/2010 Active Hypertension Unknown 10/24/2010 Active Hypothyroid Unknown 10/24/2010 Active neuropathy Unknown 10/24/2010 Active Hyperlipidemia ICD-9: 272.4 10/24/2010 Active Mycoplasma pneumonia ICD-9: 483.0 10/24/2010 Active OBESITY ICD-9: 278.00 10/24/2010 Active Medications Medication Codes Instructions Start Date Stop Date Status Fill Instructions Xanax 0.5 mg tablet RxNorm: 888497 1 Tablet(s) PO Q6 PRN as needed 02/28/2017 03/14/2017 Active promethazine 25 mg tablet RxNorm: 410739 1 Tablet(s) PO Q6 PRN 1 Tablet(s) PO Q6 PRN 02/18/2017 03/19/2017 Active Zofran 4 mg tablet RxNorm: 034665 TAKE ONE TABLET BY MOUTH THREE TIMES DAILY NEEDED 02/18/2017 No Stop Date Active Xanax 0.5 mg tablet RxNorm: 707251 1 Tablet(s) PO Q6 PRN as needed 02/18/2017 02/27/2017 Inactive Synthroid 50 mcg tablet RxNorm: 485081 1 Tablet(s) PO daily take with 300mcg tablet 02/11/2017 08/09/2017 Active Take with 300mcg tablet Synthroid 300 mcg tablet RxNorm: 417235 1 Tablet(s) PO daily take with 50mcg tablet 02/11/2017 08/09/2017 Active Take with 50mcg tablet hydrocodone 7.5 mg-acetaminophen 325 mg tablet RxNorm: 563635 1-2 Tablet(s) PO Q6 as needed 02/11/2017 02/25/2017 Inactive promethazine 25 mg tablet RxNorm: 773294 1 Tablet(s) PO Q6 PRN 1 Tablet(s) PO Q6 PRN 01/14/2017 01/23/2017 Inactive promethazine 25 mg tablet RxNorm: 718352 1 Tablet(s) PO Q6 PRN 12/17/2016 12/21/2016 Inactive promethazine 25 mg tablet RxNorm: 876525 1 Tablet(s) PO Q6 PRN 12/02/2016 12/06/2016 Inactive losartan 25 mg tablet RxNorm: 587410 1 Tablet(s) PO BID 201602/12/2017 Inactive promethazine 25 mg tablet RxNorm: 697500 1 Tablet(s) PO Q6 PRN 11/15/2016 11/19/2016 Inactive Xanax 0.5 mg tablet RxNorm: 981914 1 Tablet(s) PO Q6 PRN as needed 11/11/2016 12/24/2016 Inactive omeprazole 40 mg capsule,delayed release RxNorm: 728639 1 Capsule(s) PO daily 10/15/2016 04/12/2017 Active Synthroid 300 mcg tablet RxNorm: 525602 1 Tablet(s) PO daily 10/05/2017 Active omeprazole 40 mg capsule,delayed release RxNorm: 928621 1 Capsule(s) PO BID 10/11/2016 10/14/2016 Inactive hydrocodone 7.5 mg-acetaminophen 325 mg tablet RxNorm: 973072 1-2 Tablet(s) PO Q6 as needed 10/11/2016 10/25/2016 Inactive promethazine 25 mg tablet RxNorm: 990050 1 Tablet(s) PO Q6 PRN 10/11/2016 11/14/2016 Inactive Xanax 0.5 mg tablet RxNorm: 888509 1 Tablet(s) PO Q6 PRN as needed 10/11/2016 11/10/2016 Inactive hydrocodone 7.5 mg-acetaminophen 325 mg tablet RxNorm: 983260 1-2 Tablet(s) PO Q6 as needed 09/10/2016 09/24/2016 Inactive Xanax 0.5 mg tablet RxNorm: 448007 1 Tablet(s) PO Q6 PRN as needed 08/22/2016 10/05/2016 Inactive carvedilol 3.125 mg tablet RxNorm: 394400 1 Tablet(s) PO BID 10/08/2016 Inactive carvedilol 3.125 mg tablet RxNorm: 510892 1/2 Tablet(s) PO BID 07/01/2016 07/10/2016 Inactive hydrocodone 7.5 mg-acetaminophen 325 mg tablet RxNorm: 355180 1-2 Tablet(s) PO Q6 as needed 06/19/2016 07/03/2016 Inactive PhosLo 667 mg capsule RxNorm: 096349 1 Capsule(s) PO TID with meals 06/03/2016 11/29/2016 Inactive lactulose 10 gram/15 mL oral solution RxNorm: 494381 15 Milliliter(s) PO TID 06/03/2016 No Stop Date Active Synthroid 300 mcg tablet RxNorm: 734567 1 Tablet(s) PO daily 10/10/2016 Inactive Linzess 145 mcg capsule RxNorm: 6388574 1 Capsule(s) PO daily 05/30/2016 08/27/2016 Inactive Linzess 145 mcg capsule RxNorm: 3500107 1 Capsule(s) PO daily 05/30/2016 05/29/2016 Inactive Xanax 0.5 mg tablet RxNorm: 266803 1 Tablet(s) PO Q6 PRN as needed 05/29/2016 07/12/2016 Inactive Protonix 40 mg tablet,delayed release RxNorm: 273080 Tablet(s) TAKE 1 TABLET BY MOUTH EVERY DAY 05/17/2016 11/12/2016 Inactive Brand name only! Zithromax Z-Bhavesh 250 mg tablet RxNorm: 624042 1 Tablet(s) PO UD 04/23/2016 04/27/2016 Inactive zpack promethazine 25 mg tablet RxNorm: 406276 1 Tablet(s) PO Q6 PRN 04/23/2016 10/10/2016 Inactive Reglan 5 mg tablet RxNorm: 612948 TAKE ONE-HALF TABLET BY MOUTH THREE TIMES DAILY 03/20/2016 05/18/2016 Inactive Xanax 0.5 mg tablet RxNorm: 333293 1 Tablet(s) PO Q6 PRN as needed 03/08/2016 04/21/2016 Inactive Cozaar 25 mg tablet RxNorm: 873383 1 Tablet(s) PO daily 201606/02/2016 Inactive Cozaar 25 mg tablet RxNorm: 576109 1 Tablet(s) PO daily 201602/25/2016 Inactive hydrocodone 7.5 mg-acetaminophen 325 mg tablet RxNorm: 162204 1-2 Tablet(s) PO Q6 as needed 02/20/2016 06/18/2016 Inactive [SAVINGS FOR NON-COVERED DRUGS -- BIN: 641132, PCN: ASPROD1, Group: XXXXX, ID# [id number], Questions: . THIS IS NOT INSURANCE.] Xanax 0.5 mg tablet RxNorm: 932559 1 Tablet(s) PO Q6 PRN as needed 02/07/2016 03/07/2016 Inactive BD Insulin Pen Needle UF Short 31 gauge x 16" RxNorm: Miscellaneous 02/02/2016 05/01/2016 Inactive Zofran 4 mg tablet RxNorm: 864795 1 Tablet(s) PO TID PRN 02/17/2017 Inactive Synthroid 300 mcg tablet RxNorm: 681019 1 Tablet(s) PO daily 06/02/2016 Inactive Zofran 4 mg tablet RxNorm: 722049 1 Tablet(s) PO TID PRN 01/07/2016 Inactive polymyxin B sulfate 10,000 unit-trimethoprim 1 mg/mL eye drops RxNorm: 963388 2 Drop(s) OPH TID 11/24/2015 11/23/2015 Inactive polymyxin B sulfate 10,000 unit-trimethoprim 1 mg/mL eye drops RxNorm: 770785 2 Drop(s) OPH TID 11/24/2015 11/30/2015 Inactive Levemir 100 unit/mL subcutaneous solution RxNorm: 566020 15 Unit(s) SQ BID 11/13/2015 11/12/2015 Inactive disp needles as well Levemir 100 unit/mL subcutaneous solution RxNorm: 303270 15 Unit(s) SQ BID 11/13/2015 11/13/2015 Inactive disp needles as well Levemir FlexTouch 100 unit/mL (3 mL) subcutaneous insulin pen RxNorm: 063470 15 Unit(s) SQ BID 11/13/2015 11/23/2015 Inactive hydrocodone 7.5 mg-acetaminophen 325 mg tablet RxNorm: 751250 1-2 Tablet(s) PO Q6 as needed 11/03/2015 02/19/2016 Inactive [SAVINGS FOR NON-COVERED DRUGS -- BIN: 709358, PCN: ASPROD1, Group: XXXXX, ID# [id number], Questions: . THIS IS NOT INSURANCE.] carvedilol 3.125 mg tablet RxNorm: 110728 1/2 Tablet(s) PO BID 10/20/2015 06/02/2016 Inactive Xanax 0.5 mg tablet RxNorm: 849559 1 Tablet(s) PO Q6 PRN as needed 09/27/2015 11/08/2015 Inactive Zofran 4 mg tablet RxNorm: 697978 1 Tablet(s) PO TID PRN 11/201512/07/2015 Inactive hydrocodone 7.5 mg-acetaminophen 325 mg tablet RxNorm: 489854 1-2 Tablet(s) PO Q6 as needed 09/21/2015 11/02/2015 Inactive [SAVINGS FOR NON-COVERED DRUGS -- BIN: 019512, PCN: ASPROD1, Group: XXXXX, ID# [id number], Questions: . THIS IS NOT INSURANCE.] Zofran 4 mg tablet RxNorm: 099222 Tablet(s) 1 TABLET(S) PO Q6 PRN 09/21/2015 09/26/2015 Inactive Phenergan 25 mg/mL injection solution RxNorm: 007841 1 Milliliter(s) Inj 09/19/2015 09/19/2015 Inactive Reglan 5 mg tablet RxNorm: 201293 1/2 Tablet(s) PO TID 201512/17/2015 Inactive Zofran 4 mg tablet RxNorm: 513995 Tablet(s) 1 TABLET(S) PO Q6 PRN 09/07/2015 09/20/2015 Inactive Levaquin 250 mg tablet RxNorm: 262198 1 Tablet(s) PO Q72H 08/1708/26/2015 Inactive Kenalog 40 mg/mL suspension for injection RxNorm: 5757055 Milliliter(s) Inj 08/18/2015 08/18/2015 Inactive Synthroid 300 mcg tablet RxNorm: 019119 1 Tablet(s) PO daily 12/17/2015 Inactive Colace 100 mg capsule RxNorm: 8547401 1 Capsule(s) PO QAM as needed 08/14/2015 No Stop Date Active hydrocodone 7.5 mg-acetaminophen 325 mg tablet RxNorm: 847567 1-2 Tablet(s) PO Q6 as needed 08/08/2015 09/20/2015 Inactive [SAVINGS FOR NON-COVERED DRUGS -- BIN: 824807, PCN: ASPROD1, Group: XXXXX, ID# [id number], Questions: . THIS IS NOT INSURANCE.] Xanax 0.5 mg tablet RxNorm: 365169 1 Tablet(s) PO Q6 PRN as needed 08/08/2015 09/16/2015 Inactive Zofran 4 mg tablet RxNorm: 905283 Tablet(s) 1 TABLET(S) PO Q6 PRN 06/19/2015 09/06/2015 Inactive Xanax 0.5 mg tablet RxNorm: 395721 1 Tablet(s) PO Q6 PRN as needed 06/19/2015 07/28/2015 Inactive colesevelam 625 mg tablet RxNorm: 338160 1 Tablet(s) PO TID before meals. 06/15/2015 06/14/2015 Inactive colesevelam 625 mg tablet RxNorm: 908820 3 Tablet(s) PO BID before meals. 06/15/2015 06/02/2016 Inactive DISREGARD 1 TID ORDER mupirocin 2 % topical ointment RxNorm: 094768 3/4 Application TOP BID 06/15/2015 07/14/2015 Inactive apply to legs twice daily until healed Synthroid 200 mcg tablet RxNorm: 942358 1 Tablet(s) PO daily 08/16/2015 Inactive Xanax 0.5 mg tablet RxNorm: 914693 1 Tablet(s) PO Q6 PRN as needed 05/30/2015 06/18/2015 Inactive hydrocodone 7.5 mg-acetaminophen 325 mg tablet RxNorm: 391739 1-2 Tablet(s) PO Q6 as needed 05/30/2015 08/07/2015 Inactive [SAVINGS FOR NON-COVERED DRUGS -- BIN: 580433, PCN: ASPROD1, Group: XXXXX, ID# [id number], Questions: . THIS IS NOT INSURANCE.] Zofran 4 mg tablet RxNorm: 467313 Tablet(s) 1 TABLET(S) PO Q6 PRN 05/30/2015 06/18/2015 Inactive Synthroid 175 mcg tablet RxNorm: 908109 1 Tablet(s) PO daily 06/14/2015 Inactive Neurontin 100 mg capsule RxNorm: 422490 1 Capsule(s) PO BID 06/02/2016 Inactive Humalog KwikPen 100 unit/mL subcutaneous RxNorm: 1237206 10 Unit(s) SQ daily before meals 05/17/2015 04/22/2016 Inactive Levemir 100 unit/mL subcutaneous solution RxNorm: 730944 15 Unit(s) SQ BID 05/17/2015 11/12/2015 Inactive carvedilol 3.125 mg tablet RxNorm: 642099 1 Tablet(s) PO BID 08/14/2015 Inactive Xanax 0.5 mg tablet RxNorm: 624802 1 Tablet(s) PO Q6 PRN as needed 03/24/2015 05/02/2015 Inactive hydrocodone 7.5 mg-acetaminophen 325 mg tablet RxNorm: 006297 1-2 Tablet(s) PO Q6 as needed 03/24/2015 05/29/2015 Inactive [SAVINGS FOR NON-COVERED DRUGS -- BIN: 880175, PCN: ASPROD1, Group: XXXXX, ID# [id number], Questions: . THIS IS NOT INSURANCE.] Xanax 0.5 mg tablet RxNorm: 003037 1 Tablet(s) PO Q6 PRN as needed 03/22/2015 03/23/2015 Inactive Xanax 0.5 mg tablet RxNorm: 054642 1 Tablet(s) PO Q6 PRN as needed 03/21/2015 03/21/2015 Inactive Zofran 4 mg tablet RxNorm: 860766 Tablet(s) TABLET(S) 1 TABLET(S) PO Q6 PRN 03/20/2015 05/16/2015 Inactive Protonix 40 mg tablet,delayed release RxNorm: 702067 TAKE 1 TABLET BY MOUTH EVERY DAY- DISCONTINUE OMEPRAZOLE 03/13/2015 Inactive hydrocodone 7.5 mg-acetaminophen 325 mg tablet RxNorm: 418504 1-2 Tablet(s) PO Q6 as needed 03/09/2015 03/23/2015 Inactive [SAVINGS FOR NON-COVERED DRUGS -- BIN: 642376, PCN: ASPROD1, Group: XXXXX, ID# [id number], Questions: . THIS IS NOT INSURANCE.] PhosLo 667 mg capsule RxNorm: 484792 2 Capsule(s) PO TID with meals 02/22/2015 05/16/2015 Inactive Protonix 40 mg tablet,delayed release RxNorm: 609245 1 Tablet(s) PO BID for 2 months (Feb and Mar) then 1 po daily thereafter 02/22/2015 03/12/2015 Inactive Bactroban 2 % topical ointment RxNorm: 681932 1 Application TOP BID 02/21/2015 03/06/2015 Inactive apply to open sores on face Zofran 4 mg tablet RxNorm: 232829 TABLET(S) 1 TABLET(S) PO Q6 PRN 02/19/2015 03/19/2015 Inactive Zofran 4 mg tablet RxNorm: 015625 Tablet(s) 1 TABLET(S) PO Q6 PRN 02/16/2015 05/29/2015 Inactive hydrocodone 7.5 mg-acetaminophen 325 mg tablet RxNorm: 048860 1-2 Tablet(s) PO Q6 as needed 02/15/2015 03/08/2015 Inactive [SAVINGS FOR NON-COVERED DRUGS -- BIN: 097118, PCN: ASPROD1, Group: XXXXX, ID# [id number], Questions: . THIS IS NOT INSURANCE.] Xanax 0.5 mg tablet RxNorm: 561668 1 Tablet(s) PO Q6 PRN as needed 02/15/2015 04/14/2015 Inactive carvedilol 6.25 mg tablet RxNorm: 285084 1/2 Tablet(s) PO BID 01/24/2015 04/23/2015 Inactive Levemir 100 unit/mL subcutaneous solution RxNorm: 719548 30 Unit(s) SQ BID 12/16/2014 05/16/2015 Inactive Levemir Flexpen 100 unit/mL (3 mL) solution subcutaneous insulin pen RxNorm: 522224 30 Unit(s) SQ BID doctor to adjust the medications based on his blood glucose readings. 12/16/2014 12/16/2014 Inactive give quantity sufficient Zofran 4 mg tablet RxNorm: 211328 Tablet(s) 1 TABLET(S) PO Q6 PRN 12/16/2014 02/15/2015 Inactive hydrocodone 7.5 mg-acetaminophen 325 mg tablet RxNorm: 108065 1-2 Tablet(s) PO Q6 as needed 12/12/2014 02/14/2015 Inactive [SAVINGS FOR NON-COVERED DRUGS -- BIN: 902703, PCN: ASPROD1, Group: XXXXX, ID# [id number], Questions: . THIS IS NOT INSURANCE.] Neurontin 100 mg capsule RxNorm: 356001 1 Capsule(s) PO TID 07/201412/15/2014 Inactive BRILINTA 90 mg tablet RxNorm: 4194416 1 Tablet(s) PO BID 201405/16/2015 Inactive Protonix 40 mg tablet,delayed release RxNorm: 786148 1 Tablet(s) PO every other day as needed for heartburn 11/22/201405/2014 Inactive Zofran 4 mg tablet RxNorm: 818326 1 TABLET(S) PO Q6 PRN 11/0412/15/2014 Inactive Coreg 3.125 mg tablet RxNorm: 539898 1/2 Tablet(s) PO BID 201401/23/2015 Inactive Zofran 4 mg tablet RxNorm: 284950 1 TABLET(S) PO Q6 PRN 10/0611/03/2014 Inactive hydrocodone 7.5 mg-acetaminophen 325 mg tablet RxNorm: 982073 1-2 Tablet(s) PO Q6 as needed 10/05/2014 12/11/2014 Inactive [SAVINGS FOR NON-COVERED DRUGS -- BIN: 810057, PCN: ASPROD1, Group: XXXXX, ID# [id number], Questions: . THIS IS NOT INSURANCE.] Xanax 0.5 mg tablet RxNorm: 356162 1 Tablet(s) PO Q6 PRN as needed 10/05/2014 11/21/2014 Inactive Zofran 4 mg tablet RxNorm: 250873 1 TABLET(S) PO Q6 PRN 09/1310/05/2014 Inactive Levemir Flexpen 100 unit/mL (3 mL) solution subcutaneous insulin pen RxNorm: 794940 30 Unit(s) SQ BID doctor to adjust the medications based on his blood glucose readings. 09/01/2014 08/31/2014 Inactive give quantity sufficient Levemir Flexpen 100 unit/mL (3 mL) solution subcutaneous insulin pen RxNorm: 313612 30 Unit(s) SQ BID doctor to adjust the medications based on his blood glucose readings. 09/01/2014 12/15/2014 Inactive give quantity sufficient Combivent Respimat 20 mcg-100 mcg/actuation solution for inhalation RxNorm: 7243172 1 inhale INH Q6 as needed 08/26/2014 11/21/2014 Inactive Zofran 4 mg tablet RxNorm: 485287 1 TABLET(S) PO Q6 PRN 08/25 No Stop Date Active Spiriva with HandiHaler 18 mcg & inhalation capsules RxNorm: 072102 1 Capsule(s) INH daily 08/16/2014 05/16/2015 Inactive Flomax 0.4 mg capsule RxNorm: 485220 1 Capsule(s) PO QHS 201411/21/2014 Inactive Xanax 0.5 mg tablet RxNorm: 838154 1 Tablet(s) PO Q6 PRN as needed 08/02/2014 09/10/2014 Inactive Zithromax Z-Bhavesh 250 mg tablet RxNorm: 019735 1 Tablet(s) PO UD 07/26/2014 07/30/2014 Inactive zpack albuterol sulfate 2.5 mg/3 mL (0.083 %) solution for nebulization RxNorm: 260306 3 Milliliter(s) INH Q8 07/26/2014 Inactive q 8 hr and prn prednisone 20 mg tablet RxNorm: 581031 1 Tablet(s) PO UD 201405/16/2015 Inactive 3 tab x 4 days, 2 tabs x 4 days 1 tab daily x 4 days ,1/2 tab daily x 4 days then 1/2 tab every other day x 4 doses then stop Coreg 12.5 mg tablet RxNorm: 944926 1/2 Tablet(s) PO BID with meals 07/19/2014 10/26/2014 Inactive d/c previous order for 12.5mg BID-needs to be 1/2 tab BID Zofran 4 mg tablet RxNorm: 072202 1 TABLET(S) PO Q6 PRN 06/2308/24/2014 Inactive hydrocodone 7.5 mg-acetaminophen 325 mg tablet RxNorm: 918632 1-2 Tablet(s) PO Q6 as needed 06/17/2014 10/04/2014 Inactive [SAVINGS FOR NON-COVERED DRUGS -- BIN: [id number], PCN: ASPROD1, Group: [id number], ID# [id number], Questions: . THIS IS NOT INSURANCE.] hydrocodone 5 mg-acetaminophen 325 mg tablet RxNorm: 202948 1 Tablet(s) PO Q6 PRN as needed 05/19/2014 06/16/2014 Inactive Zofran 4 mg tablet RxNorm: 471406 1 TABLET(S) PO Q6 PRN 05/1906/22/2014 Inactive Neurontin 100 mg capsule RxNorm: 680144 1 Capsule(s) PO TID 11/05/2014 Inactive Zofran 4 mg tablet RxNorm: 602232 1 TABLET(S) PO Q6 PRN 04/28 No Stop Date Active levothyroxine 175 mcg tablet RxNorm: 573707 3=521kys Tablet(s) PO daily 04/20/2014 04/14/2015 Inactive hydrocodone 5 mg-acetaminophen 325 mg tablet RxNorm: 264153 1 Tablet(s) PO Q6 PRN as needed 04/11/2014 05/18/2014 Inactive Xanax 0.5 mg tablet RxNorm: 761218 1 Tablet(s) PO Q6 PRN as needed 03/21/2014 04/27/2014 Inactive Humalog KwikPen 100 unit/mL subcutaneous RxNorm: 1581209 5 Unit(s) SQ TID with meals 03/14/2014 07/11/2014 Inactive Neurontin 100 mg capsule RxNorm: 893093 1 Capsule(s) TID 201405/09/2014 Inactive Neurontin 100 mg capsule RxNorm: 692014 1 Capsule(s) TID 1 CAPSULE(S) PO HS 03/14/2014 03/13/2014 Inactive Phenergan with Codeine Syrup RxNorm: 5 -10 Milliliter(s) PO Q6 PRN as needed 03/01/2014 03/06/2014 Inactive Zofran 4 mg tablet RxNorm: 386105 1 TABLET(S) PO Q6 PRN 02/2804/27/2014 Inactive metoclopramide 5 mg tablet RxNorm: 432570 1 Tablet(s) PO BID 11/21/2014 Inactive [SAVINGS FOR UNINSURED PATIENTS -- BIN:[id number], PCN: ASPROD1, Group: [id number] , ID# [id number], Process claim through VisTracks, for questions: . THIS IS NOT INSURANCE.] Apidra 100 unit/mL subcutaneous solution RxNorm: 255293 1 dose SQ UD 10 units SQ with breakfast, 10 units SQ with lunch, 10 units SQ with supper l 02/21/2014 03/13/2014 Inactive he does not need this filled, this is just fyi Zofran 4 mg tablet RxNorm: 428304 1 Tablet(s) PO Q6 PRN 02/07 No Stop Date Active amlodipine 5 mg tablet RxNorm: 797671 1 Tablet(s) PO daily 09/04/2014 Inactive Zithromax Z-Bhavesh 250 mg tablet RxNorm: 353803 1 Tablet(s) PO 02/20/2014 Inactive zpak Neurontin 100 mg capsule RxNorm: 614837 1 CAPSULE(S) PO HS 09/201303/13/2014 Inactive Carafate 1 gram tablet RxNorm: 298254 1 Tablet(s) PO QID 201301/19/2014 Inactive Instruct pt to slurry pillx1 month Carafate 1 gram tablet RxNorm: 223151 1 Tablet(s) PO QID 201302/18/2014 Inactive Instruct pt to slurry pillx1 month Zofran 4 mg tablet RxNorm: 325167 1 Tablet(s) PO Q6 PRN 01/1802/06/2014 Inactive hydrocodone 5 mg-acetaminophen 325 mg tablet RxNorm: 715264 1 Tablet(s) PO Q6 PRN as needed 01/18/2014 04/10/2014 Inactive Zofran 4 mg tablet RxNorm: 431754 1 TAB(S) PO Q6 HRS 2013 No Stop Date Active Cymbalta 30 mg capsule,delayed release RxNorm: 754761 Capsule(s) PO daily TAKE 1 CAPSULE BY MOUTH EVERY DAY 12/06/201306/2014 Inactive [SAVINGS FOR UNINSURED PATIENTS -- BIN:822262, PCN: ASPROD1, Group: [id number], ID# [id number], Process claim through VisTr[employer], for questions: . THIS IS NOT INSURANCE.] Neurontin 100 mg capsule RxNorm: 430561 1 CAPSULE(S) PO HS 06/201301/19/2014 Inactive omeprazole 20 mg tablet,delayed release RxNorm: 490011 1 Tablet(s) PO daily 10/22/2013 05/19/2014 Inactive [SAVINGS FOR UNINSURED PATIENTS -- BIN:022637, PCN: ASPROD1, Group: [id number], ID# [id number], Process claim through VisTr[employer], for questions: . THIS IS NOT INSURANCE.] omeprazole 20 mg tablet,delayed release RxNorm: 496607 1 Tablet(s) PO daily 10/22/2013 10/21/2013 Inactive levothyroxine 300 mcg tablet RxNorm: 492992 1 Tablet(s) PO daily 10/20/2013 04/19/2014 Inactive Cymbalta 60 mg capsule,delayed release RxNorm: 735176 TAKE 1 CAPSULE BY MOUTH EVERY DAY 09/28/2013 12/05/2013 Inactive Apidra 100 unit/mL subcutaneous solution RxNorm: 926439 1 dose SQ UD 15 units SQ with breakfast, 10 units SQ with lunch, 15 units SQ with supper l 09/09/2013 02/20/2014 Inactive he does not need this filled, this is just fyi Levemir Flexpen 100 unit/mL (3 mL) solution subcutaneous insulin pen RxNorm: 697726 20 Unit(s) SQ BID doctor to adjust the medications based on his blood glucose readings. 09/09/2013 03/07/2014 Inactive give quantity sufficient, pt does not need a refill, this is just fyi Synthroid 300 mcg tablet RxNorm: 552449 1 Tablet(s) PO daily 08/19/2014 Inactive Synthroid 25 mcg tablet RxNorm: 215004 1 Tablet(s) PO daily TAKE WITH THE 300MCG TAB TO EQUAL 325MCG 08/25/2013 10/19/2013 Inactive Humulin R 100 unit/mL injection solution RxNorm: 103786 Unit(s) Inj 08/23/2013 03/13/2014 Inactive sliding scale a Bactrim DS 800 mg-160 mg tablet RxNorm: 343159 1 Tablet(s) PO BID 08/19/2013 08/18/2013 Inactive please give him a probiotic to take while one antibiotic acyclovir 800 mg tablet RxNorm: 224527 1 Tablet(s) PO TID 08/1908/25/2013 Inactive Bactrim DS 800 mg-160 mg tablet RxNorm: 999838 1 Tablet(s) PO BID 08/19/2013 08/22/2013 Inactive please give him a probiotic to take while one antibiotic Apidra 100 unit/mL subcutaneous solution RxNorm: 222519 15 Unit(s) SQ BID l 08/02/2013 09/08/2013 Inactive Levemir Flexpen 100 unit/mL (3 mL) solution subcutaneous insulin pen RxNorm: 957332 20 Unit(s) SQ BID doctor to adjust the medications based on his blood glucose readings. 08/02/2013 09/08/2013 Inactive give quantity sufficient Apidra 100 unit/mL subcutaneous solution RxNorm: 197349 15 Unit(s) SQ AC 10 units with meals 08/02/2013 08/01/2013 Inactive Levemir Flexpen 100 unit/mL (3 mL) solution subcutaneous insulin pen RxNorm: 840970 35 Unit(s) SQ BID doctor to adjust the medications based on his blood glucose readings. 07/01/2013 08/01/2013 Inactive give quantity sufficient Apidra 100 unit/mL subcutaneous solution RxNorm: 640290 15 Unit(s) SQ AC 10 units with meals 07/01/2013 07/30/2013 Inactive Levemir Flexpen 100 unit/mL (3 mL) solution subcutaneous insulin pen RxNorm: 422891 30 Unit(s) SQ BID doctor to adjust the medications based on his blood glucose readings. 06/21/2013 06/30/2013 Inactive give quantity sufficient Apidra 100 unit/mL subcutaneous solution RxNorm: 710840 10 Unit(s) SQ AC 10 units with meals 06/21/2013 06/30/2013 Inactive Accu-Chek FastClix RxNorm: 1 Miscellaneous TID 06/03/2013 05/16/2015 Inactive Accu-Chek FastClix RxNorm: 1 Miscellaneous TID 06/03/2013 06/02/2013 Inactive albuterol sulfate 2.5 mg/3 mL (0.083 %) solution for nebulization RxNorm: 803259 1 Milliliter(s) INH Q8 06/01/2013 Inactive q 8 hr and prn Synthroid 25 mcg tablet RxNorm: 630438 1 Tablet(s) PO BID TAKE WITH THE 300MCG TAB TO EQUAL 325MCG 04/30/2013 04/29/2013 Inactive Synthroid 300 mcg tablet RxNorm: 068289 1 Tablet(s) PO daily 08/24/2013 Inactive Synthroid 25 mcg tablet RxNorm: 583218 1 Tablet(s) PO daily TAKE WITH THE 300MCG TAB TO EQUAL 325MCG 04/30/2013 08/24/2013 Inactive BD Insulin Pen Needle UF Short 31 X 5/16" RxNorm: Miscellaneous 04/30/2013 07/28/2013 Inactive Neurontin 100 mg capsule RxNorm: 149569 1 Capsule(s) PO HS 07/27/2013 Inactive Levemir Flexpen 100 unit/mL (3 mL) solution subcutaneous insulin pen RxNorm: 815179 115 Unit(s) SQ BID 03/29/20132013 Inactive give quantity sufficient hydrocodone 5 mg-acetaminophen 325 mg tablet RxNorm: 992763 1 Tablet(s) PO Q6 PRN 03/15/2013 03/14/2013 Inactive hydrocodone 5 mg-acetaminophen 325 mg tablet RxNorm: 121021 1 Tablet(s) PO Q6 PRN 03/15/2013 No Stop Date Active Xanax 0.5 mg tablet RxNorm: 895042 1 Tablet(s) PO Q6 PRN 03/0905/06/2013 Inactive amlodipine 5 mg tablet RxNorm: 675750 1 Tablet(s) PO daily 10/04/2013 Inactive BD Insulin Pen Needle UF Short 31 X 5/16" RxNorm: Miscellaneous 02/25/2013 04/29/2013 Inactive clindamycin 150 mg capsule RxNorm: 704312 1 Capsule(s) PO QID 12/11/2012 12/17/2012 Inactive lisinopril 5 mg tablet RxNorm: 622585 1 Tablet(s) PO daily 09/201209/08/2013 Inactive Levemir Flexpen 100 unit/mL (3 mL) solution subcutaneous insulin pen RxNorm: 638393 110 Unit(s) SQ BID 11/24/20122013 Inactive give quantity sufficient Influenza Virus Vaccine 0.5 mL RxNorm: IM 11/10/2012 11/10/2012 Inactive FreeStyle Lite Strips RxNorm: 1 Miscellaneous 10/13/2012 05/16/2015 Inactive please give lancets also using up to seven dailydx 250.03 doxycycline hyclate 100 mg tablet RxNorm: 629354 1 Tablet(s) PO BID 10/13/2012 10/19/2012 Inactive Phenergan with Codeine Syrup RxNorm: 5 Milliliter(s) PO Q6 PRN 09/04/2012 09/24/2012 Inactive Zithromax Z-Bhavesh 250 mg tablet RxNorm: 452529 Tablet(s) PO 09/0211/23/2012 Inactive zpak Synthroid 300 mcg tablet RxNorm: 940648 1 Tablet(s) PO daily 04/29/2013 Inactive Levemir Flexpen 100 unit/mL (3 mL) solution subcutaneous insulin Pen RxNorm: 811947 120 units am, 100 units pm Unit(s) SQ QAM 08/25/2012 09/23/2012 Inactive disregard 1st RX-I increased the dose Ultram 50 mg tablet RxNorm: 844238 1 Tablet(s) PO Q4 PRN 08/1211/21/2014 Inactive Cymbalta 60 mg capsule,delayed release RxNorm: 234989 Capsule(s) PO TAKE 1 CAPSULE BY MOUTH EVERY DAY 08/11/201212/2013 Inactive Apidra SoloStar 100 unit/mL Sub-Q Insulin Pen RxNorm: 505314 60 Unit Dose SQ QAM 06/25/2012 08/24/2012 Inactive Levemir Flexpen 100 unit/mL (3 mL) Sub-Q Insulin Pen RxNorm: 928327 100 Unit(s) SQ QAM 06/25/2012 07/24/2012 Inactive disregard 1st RX-I increased the dose Synthroid 300 mcg tablet RxNorm: 731877 total 325mcg daily Tablet(s) PO daily 06/23/2012 08/24/2012 Inactive Apidra SoloStar 100 unit/mL Sub-Q Insulin Pen RxNorm: 848512 45 Unit Dose SQ TID 55 units with meals 05/12/2012 05/11/2012 Inactive Levemir Flexpen 100 unit/mL (3 mL) Sub-Q Insulin Pen RxNorm: 636975 140 Unit(s) SQ as doctor directed 90 units in the morning and 90 units at bedtime 05/12/2012 06/24/2012 Inactive disregard 1st RX-I increased the dose Apidra SoloStar 100 unit/mL Sub-Q Insulin Pen RxNorm: 487469 55 Unit Dose SQ TID 55 units with meals 05/12/2012 06/24/2012 Inactive Synthroid 200 mcg tablet RxNorm: 962373 1 Tablet(s) PO daily this is in addition to 75mcg for total of 275mcg 03/18/2012 Inactive this is in addition to 75mcg for total of 275mcgname brand synthroid only Synthroid 75 mcg tablet RxNorm: 777843 1 Tablet(s) PO take with 200mcg tablet to equal 275mcg daily 03/18/2012 05/05/2012 Inactive Ranexa 500 mg tablet,extended release RxNorm: 443909 Tablet(s) PO TAKE 1 TABLET BY MOUTH TWICE DAILY 02/19/20122013 Inactive Synthroid 50 mcg tablet RxNorm: 901559 1 Tablet(s) PO daily 03/17/2012 Inactive this is in addition to 200mcg tab for total of 250mcg dailyname brand synthroid only Synthroid 200 mcg tablet RxNorm: 257468 1 Tablet(s) PO daily 02/05/2012 Inactive this is in addition to 50mcg for total of 250mcg Synthroid 200 mcg tablet RxNorm: 990555 1 Tablet(s) PO daily 03/17/2012 Inactive this is in addition to 50mcg for total of 250mcgname brand synthroid only Ranexa 500 mg tablet,extended release RxNorm: 551583 Tablet(s) PO TAKE 1 TABLET BY MOUTH TWICE DAILY 01/20/20122013 Inactive Levemir Flexpen 100 unit/mL (3 mL) Sub-Q Insulin Pen RxNorm: 462945 140 Unit(s) SQ as doctor directed 55 units in the morning and 85 units at bedtime 01/02/2012 05/11/2012 Inactive disregard 1st RX-I increased the dose Apidra SoloStar 100 unit/mL Sub-Q Insulin Pen RxNorm: 698696 45 Unit Dose SQ TID 45 units with meals 01/02/2012 03/31/2012 Inactive Ranexa 500 mg tablet,extended release RxNorm: 320955 Tablet(s) PO 12/19/2011 08/17/2013 Inactive TAKE 1 TABLET BY MOUTH TWICE DAILY glipizide 10 mg tablet RxNorm: 844030 Tablet(s) PO 12/16/2011 08/01/2013 Inactive TAKE 1 TABLET BY MOUTH EVERY DAY levothyroxine 200 mcg tablet RxNorm: 191283 Tablet(s) PO 201102/05/2012 Inactive TAKE 1 TABLET BY MOUTH EVERY DAY Apidra SoloStar 100 unit/mL Sub-Q Insulin Pen RxNorm: 364482 35 Unit Dose SQ TID with meals 12/02/2011 01/01/2012 Inactive Ranexa 500 mg tablet,extended release RxNorm: 466531 Tablet(s) PO 11/22/2011 08/24/2013 Inactive TAKE 1 TABLET BY MOUTH TWICE DAILY Apidra SoloStar 100 unit/mL Sub-Q Insulin Pen RxNorm: 298796 30 Unit Dose SQ TID with meals 11/21/2011 12/01/2011 Inactive Levemir Flexpen 100 unit/mL (3 mL) Sub-Q Insulin Pen RxNorm: 727365 100 Unit(s) SQ as doctor directed 40 units in the morning and 75units at bedtime 11/21/2011 11/20/2011 Inactive nystatin 100,000 unit/mL Oral Susp RxNorm: 699334 6 Milliliter(s) PO QID 11/21/2011 11/30/2011 Inactive Levemir Flexpen 100 unit/mL (3 mL) Sub-Q Insulin Pen RxNorm: 809038 100 Unit(s) SQ as doctor directed 45 units in the morning and 75units at bedtime 11/21/2011 01/01/2012 Inactive disregard 1st RX-I increased the dose Levemir Flexpen 100 unit/mL (3 mL) Sub-Q Insulin Pen RxNorm: 264788 100 Unit(s) SQ as doctor directed 40 units in the morning and 75units at bedtime 10/24/2011 11/20/2011 Inactive Ranexa 500 mg tablet,extended release RxNorm: 957616 Tablet(s) PO 10/22/2011 08/25/2013 Inactive TAKE 1 TABLET BY MOUTH TWICE DAILY Ranexa 500 mg tablet,extended release RxNorm: 089060 Tablet(s) PO 09/23/2011 08/17/2013 Inactive TAKE 1 TABLET BY MOUTH TWICE DAILY glipizide 10 mg tablet RxNorm: 475718 Tablet(s) PO 09/20/2011 07/31/2013 Inactive TAKE 1 TABLET BY MOUTH EVERY DAY levothyroxine 200 mcg tablet RxNorm: 297199 Tablet(s) PO 201105/05/2012 Inactive TAKE 1 TABLET BY MOUTH EVERY DAY Apidra SoloStar 100 unit/mL Sub-Q Insulin Pen RxNorm: 998651 25 Unit Dose SQ TID with meals 09/05/2011 11/20/2011 Inactive Apidra SoloStar 100 unit/mL Sub-Q Insulin Pen RxNorm: 184984 20 Unit Dose SQ TID with meals 09/05/2011 09/04/2011 Inactive Levemir Flexpen 100 unit/mL (3 mL) Sub-Q Insulin Pen RxNorm: 200952 100 Unit(s) SQ as doctor directed 30 units in the morning and 70units at bedtime 09/05/2011 10/23/2011 Inactive Ranexa 500 mg tablet,extended release RxNorm: 926351 Tablet(s) PO 08/26/2011 09/22/2011 Inactive TAKE 1 TABLET BY MOUTH TWICE DAILY Levemir Flexpen 100 unit/mL (3 mL) Sub-Q Insulin Pen RxNorm: 985002 90 Unit(s) SQ as doctor directed 25 units in the morning and 65 units at bedtime 08/26/2011 09/04/2011 Inactive FreeStyle Lancets RxNorm: 1 test Miscellaneous TID 201106/18/2014 Inactive dispense quantity sufficient for three times daily testing Apidra SoloStar 100 unit/mL Sub-Q Insulin Pen RxNorm: 607430 20 Unit Dose SQ TID with meals 07/05/2011 09/04/2011 Inactive Levemir Flexpen 100 unit/mL (3 mL) Sub-Q Insulin Pen RxNorm: 297339 90 Unit(s) SQ as doctor directed 25 units in the morning and 65 units at bedtime 07/05/2011 08/03/2011 Inactive Levemir Flexpen 100 unit/mL (3 mL) Sub-Q Insulin Pen RxNorm: 661567 90 Unit(s) SQ as doctor directed 25 units in the morning and 65 units at bedtime 06/24/2011 07/04/2011 Inactive Apidra SoloStar 100 unit/mL Sub-Q Insulin Pen RxNorm: 303014 15 Unit Dose SQ TID with meals 06/24/2011 06/23/2011 Inactive Apidra SoloStar 100 unit/mL Sub-Q Insulin Pen RxNorm: 828275 20 Unit Dose SQ TID with meals 06/24/2011 07/04/2011 Inactive metoprolol succinate ER 25 mg 24 hr Tab RxNorm: 865068 1 Tablet(s) PO BID 06/24/2011 07/19/2014 Inactive Apidra SoloStar 100 unit/mL Sub-Q Insulin Pen RxNorm: 023923 12 Unit Dose SQ TID with meals 06/21/2011 06/23/2011 Inactive Levemir Flexpen 100 unit/mL (3 mL) Sub-Q Insulin Pen RxNorm: 499683 75 Unit(s) SQ as doctor directed 20 units in the morning and 65 units at bedtime 06/21/2011 06/23/2011 Inactive Levemir Flexpen 100 unit/mL (3 mL) Sub-Q Insulin Pen RxNorm: 849937 75 Unit(s) SQ as doctor directed 15 units in the morning and 60 units at bedtime 04/23/2011 06/20/2011 Inactive Ranexa 500 mg 12 hr Tab RxNorm: 704259 1 Tablet(s) PO BID 04/2208/25/2011 Inactive Levemir Flexpen 100 unit/mL (3 mL) Sub-Q Insulin Pen RxNorm: 882206 75 Unit(s) SQ as doctor directed 15 units in the morning and 60 units at bedtime 04/23/2011 04/22/2011 Inactive FreeStyle Lancets RxNorm: 1 test Miscellaneous TID 201107/04/2011 Inactive dispense quantity sufficient for three times daily testing FreeStyle Lite Strips RxNorm: 1 Miscellaneous QID 04/18/2011 04/17/2011 Inactive please give lancets alsodx 250.03 FreeStyle Lite Strips RxNorm: 1 Miscellaneous QID 04/18/2011 05/11/2012 Inactive please give lancets alsodx 250.03 Plavix 75 mg Tab RxNorm: 894183 1 Tablet(s) PO daily 201109/19/2011 Inactive glipizide 10 mg tablet RxNorm: 099947 1 Tablet(s) PO daily 04/201109/17/2011 Inactive levothyroxine 200 mcg tablet RxNorm: 611230 1 Tablet(s) PO daily 03/22/2011 09/17/2011 Inactive Cymbalta 60 mg capsule,delayed release RxNorm: 879764 Capsule(s) PO 01/15/2011 08/10/2012 Inactive TAKE 1 CAPSULE BY MOUTH DAILY;Patient requests 90 day supply clarithromycin 500 mg Tab RxNorm: 455274 1 Tablet(s) PO BID 08/201004/23/2011 Inactive Ventolin 90 mcg/Actuation Aerosol Inhaler RxNorm: 647453 1 INH QID use the sample as directed until medication is completed 10/24/2010 04/23/2011 Inactive Phenergan with Codeine Syrup RxNorm: 5-10 Milliliter(s) PO Q6 PRN take medication q 6 hours prn for cough 10/24/2010 04/23/2011 Inactive fill 10 ounces of the medication Cymbalta 60 mg Cap RxNorm: 484979 1 Capsule(s) PO daily 10/1501/12/2011 Inactive Lipitor 40 mg Tab RxNorm: 402102 1 Tablet(s) PO daily 201005/16/2015 Inactive metformin 1,000 mg Tab RxNorm: 746914 1 Tablet(s) PO BID 201004/23/2011 Inactive ondansetron HCl 4 mg tablet RxNorm: 846799 1 Tablet(s) PO TID as needed No Start Date Active isosorbide mononitrate ER 30 mg tablet,extended release 24 hr RxNorm: 664430 1 Tablet(s) PO daily No Start Date Active Kionex 15 gram/60 mL oral suspension RxNorm: 057142 60 Milliliter(s) PO UD per dr. tompkins's rx No Start Date Active sodium bicarbonate oral RxNorm: 21971 oral No Start Date Active cyclobenzaprine 10 mg tablet RxNorm: 478133 1 Tablet(s) PO Q8 as needed No Start Date Active aspirin 81 mg capsule,delayed release RxNorm: 162856 1 Capsule(s) PO QHS as needed No Start Date Active Miralax 17 gram oral powder packet RxNorm: 324341 1 PO daily No Start Date Active Flomax 0.4 mg capsule RxNorm: 728011 1 Capsule(s) PO QHS No Start Date 08/10/2014 Inactive Coreg 12.5 mg tablet RxNorm: 694884 1 Tablet(s) PO BID with meals No Start Date 07/18/2014 Inactive Combivent Respimat 20 mcg-100 mcg/actuation solution for inhalation RxNorm: 7448885 1 INH Q6 as needed No Start Date 08/25 Inactive Tessalon 200 mg capsule RxNorm: 637395 1 Capsule(s) PO TID as needed No Start Date 06/14/2015 Inactive omeprazole 40 mg capsule,delayed release RxNorm: 410139 1 Capsule(s) PO daily No Start Date 10/10/2016 Inactive Ultram 50 mg tablet RxNorm: 896071 1 Tablet(s) PO Q4 PRN No Start Date 08/11/2012 Inactive benzonatate 100 mg capsule RxNorm: 141064 1 Capsule(s) PO TID for cough No Start Date 11/21/2014 Inactive lactulose 10 gram/15 mL oral solution RxNorm: 113698 15 Milliliter(s) PO BID No Start Date 06/02/2016 Inactive Levemir FlexTouch 100 unit/mL (3 mL) subcutaneous insulin pen RxNorm: 472842 15 Unit(s) SQ BID No Start Date 11/12/2015 Inactive Cunningham 3 Fish Oil capsule RxNorm: 1 Capsule(s) PO daily No Start Date 06/02/2016 Inactive Levaquin 750 mg tablet RxNorm: 567305 1 Tablet(s) PO every other day No Start Date 11/14/2014 Inactive Dulera 200 mcg-5 mcg/actuation HFA aerosol inhaler RxNorm: 0129584 1 INH BID No Start Date 06/14/2015 Inactive Plavix 75 mg tablet RxNorm: 563384 1 Tablet(s) PO QAM No Start Date 06/02/2016 Inactive PhosLo 667 mg capsule RxNorm: 378432 1 Capsule(s) PO TID with meals No Start Date 06/02/2016 Inactive hydrocodone 5 mg-acetaminophen 325 mg tablet RxNorm: 745667 1 Tablet(s) PO Q6 PRN No Start Date 03/14/2013 Inactive Phenergan with Codeine Syrup RxNorm: 1 or 2 PO Q6 PRN No Start Date 08/23/2012 Inactive Symbicort 160 mcg-4.5 mcg/actuation HFA aerosol inhaler RxNorm: 9937577 1 INH BID No Start Date 11/21/2014 Inactive BD Insulin Pen Needle UF Short 31 X 5/16" RxNorm: miscellaneous No Start Date 02/24/2013 Inactive Apidra 100 unit/mL subcutaneous solution RxNorm: 995290 Unit(s) SQ 10 units with meals No Start Date 06/20/2013 Inactive colesevelam 625 mg tablet RxNorm: 662585 3 Tablet(s) PO BID before meals. No Start Date 06/14/2015 Inactive Apidra SoloStar 100 unit/mL Sub-Q Insulin Pen RxNorm: 827075 5 Unit Dose SQ TID with meals No Start Date 06/20/2011 Inactive Spiriva with HandiHaler 18 mcg & inhalation capsules RxNorm: 574128 1 Capsule(s) INH daily No Start Date 08/15/2014 Inactive albuterol sulfate 2.5 mg/3 mL (0.083 %) solution for nebulization RxNorm: 520295 1 Milliliter(s) INH Q8 PRN No Start Date 05/31/2013 Inactive losartan 25 mg tablet RxNorm: 339393 1 Tablet(s) PO daily No Start Date 11/14/2016 Inactive Zithromax Z-Bhavesh 250 mg tablet RxNorm: 006184 Tablet(s) PO No Start Date 09/01/2012 Inactive zpak Symbicort 160 mcg-4.5 mcg/Actuation Inhalation HFA Aerosol Inhaler RxNorm: 3035339 1 INH BID use the sample as directed until medication is completed No Start Date 04/23/2011 Inactive Aranesp 40 mcg/mL (in polysorbate) Injection RxNorm: 601980 1 Milliliter(s) Inj QW No Start Date 08/13/2015 Inactive hydralazine 50 mg tablet RxNorm: 680222 1 Tablet(s) PO TID No Start Date 09/24/2015 Inactive Humulin R 100 unit/mL injection solution RxNorm: 418406 Unit(s) Inj No Start Date 08/22/2013 Inactive sliding scale a Apidra SoloStar 100 unit/mL Sub-Q Insulin Pen RxNorm: 495934 70 units am, 70 units noon, 60 units supper Unit(s) SQ No Start Date 06/07/2013 Inactive PhosLo 667 mg capsule RxNorm: 752768 1 Capsule(s) PO TID with meals No Start Date 02/21/2015 Inactive Synthroid 50 mcg tablet RxNorm: 553352 1 Tablet(s) PO daily No Start Date 02/05/2012 Inactive metoprolol succinate ER 25 mg 24 hr Tab RxNorm: 816064 1/2 Tablet(s) PO BID No Start Date 06/23/2011 Inactive Levemir Flexpen 100 unit/mL (3 mL) Sub-Q Insulin Pen RxNorm: 665015 50 Unit(s) SQ QHS No Start Date 04/22/2011 Inactive flecainide 100 mg tablet RxNorm: 819725 1 Tablet(s) PO BID No Start Date 06/02/2016 Inactive hydrocodone 5 mg-acetaminophen 325 mg tablet RxNorm: 869738 1-2 Tablet(s) PO Q4H as needed No Start Date 10/10/2016 Inactive Synthroid 300 mcg tablet RxNorm: 008713 1 Tablet(s) PO daily No Start Date 06/22/2012 Inactive hydrocodone 7.5 mg-acetaminophen 325 mg tablet RxNorm: 921845 1-2 Tablet(s) PO Q6 as needed No Start Date 06/16/2014 Inactive Zofran 4 mg tablet RxNorm: 220283 1 Tablet(s) PO Q6 PRN No Start Date 12/16/2013 Inactive Synthroid 88 mcg tablet RxNorm: 890671 1 Tablet(s) PO daily takes with 200mcg to equal 288mcg No Start Date 06/22/2012 Inactive ProAir HFA 90 mcg/actuation aerosol inhaler RxNorm: 694517 INH Q4H as needed 108mcg No Start Date 08/13/2015 Inactive Colace 100 mg capsule RxNorm: 4580238 1 Capsule(s) PO QAM No Start Date 08/13/2015 Inactive Medication Administered Medication Codes Instructions Start Date Status Phenergan 25 mg/mL injection solution RxNorm: 794766 1Milliliter 09/19/2015 No longer Active Kenalog 40 mg/mL suspension for injection RxNorm: 7701824 Milliliter 08/18/2015 No longer Active Influenza Virus Vaccine 0.5 mL RxNorm: 11/10/2012 No longer Active Immunizations Vaccine Codes Date Status Influenza CVX: 141 11/24/2015 completed Pneumococcal (Adult) CVX: 133 11/24/2015 completed Influenza CVX: 141 11/11/2013 completed Influenza CVX: 141 11/10/2012 completed Assessments Condition Codes Effective Dates Essential (primary) hypertension ICD-10: I10 ICD-9: 401.9 01/21/2017 Chronic kidney disease, stage 5 ICD-10: N18.5 ICD-9: 585.5 01/21/2017 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 ICD-9: 250.02 01/21/2017 Hypothyroidism, unspecified ICD-10: E03.9 ICD-9: 244.9 10/11/2016 Low back pain ICD-10: M54.5 ICD-9: 724.2 10/11/2016 Gastro-esophageal reflux disease without esophagitis ICD-10 : K21.9 ICD-9: 530.81 10/11/2016 Slow transit constipation ICD-10: K59.01 ICD-9: 564.01 06/03/2016 Occlusion and stenosis of bilateral carotid arteries ICD-10 : I65.23 ICD-9: 433.10 05/07/2016 Cough ICD-10: R05 ICD-9: 786.2 04/23/2016 Vomiting without nausea ICD-10: R11.11 ICD-9: 787.03 04/23/2016 Other retention of urine ICD-10: R33.8 ICD-9: 788.29 04/22/2016 End stage renal disease ICD-10: N18.6 ICD-9: 585.6 04/08/2016 Encounter for immunization ICD-10: Z23 ICD-9: V06.6 11/24/2015 Obstructive sleep apnea (adult) (pediatric) ICD-10: G47.33 ICD-9: 327.23 11/13/2015 Dyspnea, unspecified ICD-10: R06.00 ICD-9: 786.09 11/13/2015 Chronic obstructive pulmonary disease, unspecified ICD-10: J44.9 ICD-9: 496 11/13/2015 Contusion of other part of head, initial encounter ICD-10: S00.83XA ICD-9: 920 10/20/2015 Headache ICD-10: R51 ICD-9: 784.0 10/20/2015 Dizziness and giddiness ICD-10: R42 ICD-9: 780.4 09/25/2015 Nausea with vomiting, unspecified ICD-10: R11.2 ICD-9: 787.01 09/19/2015 Gastroparesis ICD-10: K31.84 ICD-9: 536.3 09/19/2015 Wheezing ICD-10: R06.2 ICD-9: 786.07 08/25/2015 Shortness of breath ICD-10: R06.02 ICD-9: 786.05 08/25/2015 Pneumonia due to other specified bacteria ICD-10: J15.8 ICD-9: 482.89 08/25/2015 Onycholysis ICD-10: L60.1 ICD-9: 703.8 08/08/2015 Other nail disorders ICD-10: L60.8 ICD-9: 703.9 08/08/2015 Hypoxemia ICD-10: R09.02 ICD-9: 799.02 02/21/2015 Encounter for follow-up examination after completed treatment for conditions other than malignant neoplasm ICD-10: Z09 ICD-9: V67.59 02/21/2015 Constipation, unspecified ICD-10: K59.00 ICD-9: 564.00 12/16/2014 Chronic kidney disease, stage 4 (severe) ICD-10: N18.4 ICD-9: 585.4 11/22/2014 Hypotension ICD-9: 458.9 10/27/2014 Diabetes mellitus type 2, uncontrolled ICD-9: 250.02 10/27/2014 Chronic renal disease, stage 4, severely decreased glomerular filtration rate between 15-29 mL/min/1.73 square meter ICD-9: 585.4 10/27/2014 DIABETES TYPE II ICD-9: 250.00 2014 Open wound of left foot ICD-9: 892.0 Nausea and vomiting ICD-9: 787.01 2014 ACUTE BRONCHITIS ICD-9: 466.0 07/26/2014 Cough ICD-9: 786.2 07/26/2014 Acute renal failure superimposed on stage 4 chronic kidney disease ICD-9: 584.9 07/19/2014 HEADACHE ICD-9: 784.0 04/01/2014 Nausea ICD-9: 787.02 03/14/2014 Peripheral neuropathy ICD-9: 356.9 2014 HYPOTHYROIDISM ICD-9: 244.9 02/21/2014 ESSENTIAL HYPERTENSION ICD-9: 401.9 02/21 Gastroparesis ICD-9: 536.3 02/21/2014 Elevated white blood cell count ICD-9: 288.60 01/31/2014 Dysuria ICD-9: 788.1 01/31/2014 Low back pain ICD-9: 724.2 01/18/2014 Neck pain ICD-9: 723.1 01/18/2014 VACCIN FOR INFLUENZA ICD-10: Z23 ICD-9: V04.81 11/11/2013 Abdominal pain ICD-9: 789.00 08/19/2013 Orthostatic hypotension ICD-9: 458.0 ANEMIA ICD-9: 285.9 06/07/2013 Pneumonia ICD-9: 486 06/07/2013 Gastroenteritis ICD-9: 558.9 05/17/2013 Diabetic peripheral neuropathy ICD-9: 250.60 04/29/2013 Encounter for long-term (current) use of other medications ICD-9: V58.69 04/29/2013 CHEST PAIN ICD-9: 786.50 03/16/2013 Noncompliance ICD-9: V15.81 03/09/2013 Abscess, dental ICD-9: 522.5 12/11/2012 VACCIN FOR INFLUENZA ICD-9: V04.81 2012 Syncope ICD-9: 780.2 09/17/2012 Fall at [facility] ICD-9: E888.9 2012 LYMPHOMAS NEC EXTRANODAL/NOS ICD-9: 202.80 02/03/2012 Mouth dryness ICD-9: 527.7 01/02/2012 THRUSH ICD-9: 112.0 12/02/2011 OBESITY ICD-9: 278.00 10/24/2011 Depression ICD-9: 311 04/23/2011 Mycoplasma pneumonia ICD-9: 483.0 2010 Reason For Visit Reason For Visit Effective Dates Notes hypertension 01/21/2017 blood pressure followup 10/11/2016 blood pressure followup 08/09/2016 improving blood pressure followup 07/11/2016 blood pressure followup 07/01/2016 blood pressure followup 06/03/2016 abdominal pain 05/20/2016 blood pressure followup 05/07/2016 vomiting 04/23/2016 urinary retention/hesitancy 04/22/2016 diabetes mellitus 04/08/2016 diabetes mellitus 03/08/2016 diabetes mellitus 12/08/2015 vaccination against influenza 11/24/2015 diabetes mellitus 11/13/2015 blood pressure followup 11/03/2015 headache 10/20/2015 constipation 09/25/2015 syncope 09/19/2015 cough 08/25/2015 cough 08/18/2015 diabetes mellitus 08/14/2015 toe pain due to infection 08/08/2015 blood pressure followup 06/15/2015 Hospital Follow Up 05/18/2015 Hospital Follow Up 02/21/2015 nausea 12/16/2014 vertigo 11/22/2014 wants to go over medication to improve kidney function headache 10/27/2014 diabetes mellitus 09/06/2014 weakness 08/02/2014 cough 07/26/2014 Hospital Follow Up 07/19/2014 headache 04/01/2014 headache 03/14/2014 lower headache 02/21/2014 lower back pain 01/18/2014 vaccination against influenza 11/11/2013 Hospital Follow Up 09/09/2013 having bloody stools at times pain 08/19/2013 hypertension 08/02/2013 diabetes mellitus 07/08/2013 passed out at sons house friday, didnt feel anything coming cough 07/01/2013 diabetes mellitus 06/21/2013 cough 06/07/2013 vomiting 05/17/2013 weight loss 04/29/2013 blood pressure followup 03/26/2013 Hospital Follow Up 03/16/2013 hypertension 03/09/2013 Hospital Follow Up 12/11/2012 diabetes mellitus 11/24/2012 vaccination against influenza 11/10/2012 diabetes mellitus 10/13/2012 diabetes mellitus 09/17/2012 diabetes mellitus 06/25/2012 near-syncope/dizziness 06/15/2012 diabetes mellitus 05/12/2012 diabetes mellitus 02/03/2012 sore throat 01/02/2012 oral lesion 12/02/2011 diabetes mellitus 11/21/2011 hyperlipidemia 10/24/2011 diabetes mellitus 09/05/2011 diabetes mellitus 07/08/2011 diabetes mellitus 06/24/2011 changed meds on Friday - levemir 20 q am 65 q evening, insulin 15 tid. pt states that his readings have been very random diabetes mellitus 04/23/2011 hoarseness 10/24/2010 Dry cough, has tried zpak, prednisone, inhaler, and cough syrup with no relief Results Observation Observation Code Item Item Code Result Date Comp Metabolic Jba200 NA 138 mEq/L 01/21/2017 Comp Metabolic Jxs861 K 4.8 mEq/L 01/21/2017 Comp Metabolic Xwk380 CL 100 mEq/L 01/21/2017 Comp Metabolic Zvf636 CO2 31.0 mEq/L 01/21/2017 Comp Metabolic Wht596 ANION GAP 12 01/21/2017 Comp Metabolic Prc669 GLUCOSE 150 mg/dL 01/21/2017 Comp Metabolic Qwa415 Creat 4.1 mg/dL 01/21/2017 Comp Metabolic Gkz422 eGFR 15 ml/min/1.73m2 01/21/2017 Comp Metabolic Jkq796 BUN 23 mg/dL 01/21/2017 Comp Metabolic Isx054 B/C Ratio 5.6 Ratio 01/21/2017 Comp Metabolic Qbm127 CALCIUM 9.0 mg/dL 01/21/2017 Comp Metabolic Uaf850 ALK PHOS 65 U/L 01/21/2017 Comp Metabolic Qee237 AST(SGOT) 12 U/L 01/21/2017 Comp Metabolic Ilu235 ALT(SGPT) 9 U/L 01/21/2017 Comp Metabolic Svm721 BILI T 0.3 mg/dL 01/21/2017 Comp Metabolic Bet686 ALBUMIN 3.8 g/dL 01/21/2017 Comp Metabolic Wkk225 TPRO 6.0 g/dL 01/21/2017 Comp Metabolic Ksk673 GLOB 2.2 g/dL 01/21/2017 Comp Metabolic Epf486 A/G Ratio 1.8 Ratio 01/21/2017 Comp Metabolic Lpi595 Osmo 282 mOsmo 01/21/2017 Cbc With Differential Ord2 WBC 5.29 K/ul 01/21/2017 Cbc With Differential Ord2 RBC 3.69 M/ul 01/21/2017 Cbc With Differential Ord2 HGB 12.6 g/dl 01/21/2017 Cbc With Differential Ord2 Neut% 61.5 % 01/21/2017 Cbc With Differential Ord2 HCT 37.2 % 01/21/2017 Cbc With Differential Ord2 MCV 100.8 fl 01/21/2017 Cbc With Differential Ord2 Lymph% 18.3 % 01/21/2017 Cbc With Differential Ord2 MCH 34.1 pg 01/21/2017 Cbc With Differential Ord2 Hyde% 7.9 % 01/21/2017 Cbc With Differential Ord2 MCHC 33.9 pg 01/21/2017 Cbc With Differential Ord2 Eos% 11.7 % 01/21/2017 Cbc With Differential Ord2 PLT 161 K/ul 01/21/2017 Cbc With Differential Ord2 Baso% 0.6 % 01/21/2017 Cbc With Differential Ord2 RDW 13.6 % 01/21/2017 Cbc With Differential Ord2 Neut ABS# 3.25 K/ul 01/21/2017 Cbc With Differential Ord2 Lymph ABS# 0.97 K/ul 01/21/2017 Cbc With Differential Ord2 Hyde ABS# 0.4 K/ul 01/21/2017 Cbc With Differential Ord2 Eos ABS# 0.6 K/ul 01/21/2017 Cbc With Differential Ord2 Baso ABS# 0.0 K/ul 01/21/2017 %Hba1C Rgx783 % HbA1c 98709-8 5.7 % 01/21/2017 %Hba1C Vgj639 Gluc Ave 117 mg/dL 01/21/2017 SPTYPE 4448992 SP TYPE SERUM 04/29/2013 SPTYPE [id number] HMLYSIS NO 04/29/2013 CBC 8451168 WBC 7.5 10e9/L 04/29/2013 CBC 6654911 RBC 3.50 10e12/L 04/29/2013 CBC 5895481 HGB 11.1 g/dL 04/29/2013 CBC 4219691 HCT DET 32.0 % 04/29/2013 CBC 5564223 MCV 91.4 fL 04/29/2013 CBC 6096732 MCH 31.7 pg 04/29/2013 CBC 0434621 MCHC 34.7 g/dL 04/29/2013 CBC 7462144 PLT 287 10e9/L 04/29/2013 CBC 1555325 MPV 9.1 fL 04/29/2013 CBC 9576237 OWEN % 83.4 % 04/29/2013 CBC 2948706 LY % 8.0 % 04/29/2013 CBC 3984804 MON % 6.0 % 04/29/2013 CBC 4710100 EOS % 2.3 % 04/29/2013 CBC 9089861 BASO % 0.3 % 04/29/2013 CBC 1364183 RDW 12.3 % 04/29/2013 CBC 2749737 ABS OWEN 6.26 10e9/L 04/29/2013 CBC 2093427 ABS LYMPH 0.60 10e9/L 04/29/2013 CBC 3978994 ABS MONO 0.45 10e9/L 04/29/2013 CBC 8660581 ABS EOS 0.17 10e9/L 04/29/2013 CBC 6126052 ABS BASO 0.02 10e9/L 04/29/2013 CBC 8506938 RDW-SD 39.8 fL 04/29/2013 TSH 3749537 TSH 95.308 uIU/ML 04/29/2013 GFR CALC 1401119 GFR AA 38.0L ML/MIN 04/29/2013 GFR CALC 7915825 GFR NON-AA 31.0L ML/MIN 04/29/2013 CHEM 14 9871550 AST 7 U/L 04/29/2013 CHEM 14 6661085 ALT 8 IU/L 04/29/2013 CHEM 14 4265155 BUN 50 MG/DL 04/29/2013 CHEM 14 7190440 ALBUMIN 3.6 GM/DL 04/29/2013 CHEM 14 2123797 CHLORIDE 88 MMOL/L 04/29/2013 CHEM 14 9508413 BILI TOT 0.3 MG/DL 04/29/2013 CHEM 14 3451770 ALK PHOS 118 U/L 04/29/2013 CHEM 14 4431267 SODIUM 126 MMOL/L 04/29/2013 CHEM 14 7236454 CREATININE 2.14 MG/DL 04/29/2013 CHEM 14 0070908 CALCIUM 9.5 MG/DL 04/29/2013 CHEM 14 0617719 POTASSIUM 5.6 MMOL/L 04/29/2013 CHEM 14 7732094 PROT TOT 6.6 GM/DL 04/29/2013 CHEM 14 1865705 GLUCOSE 578 MG/DL 04/29/2013 CHEM 14 8587027 BICARB 32 MMOL/L 04/29/2013 CHEM 14 0909370 ANION GAP 6 MEQ/L 04/29/2013 FREE T4 1768682 FREE T4 0.80 NG/DL 04/29/2013 A1C HPLC 9389485 A1C HPLC 79444-3 11.8 % 11/26/2012 PEND CHEM PEND CHEM A1C HPLC 11/25/2012 TSH 1444118 TSH 27.831 uIU/ML 11/24/2012 FREE T4 3826054 FREE T4 1.00 NG/DL 11/24/2012 GFR CALC 6216969 GFR AA >60 ML/MIN 02/03/2012 GFR CALC 4390174 GFR NON-AA 54.0L ML/MIN 02/03/2012 TSH 3463526 TSH 23.984 uIU/ML 02/03/2012 FREE T4 2318525 FREE T4 1.03 NG/DL 02/03/2012 CHEM 14 9370278 AST 15 U/L 02/03/2012 CHEM 14 1047991 ALT 12 IU/L 02/03/2012 CHEM 14 7099256 BUN 26 MG/DL 02/03/2012 CHEM 14 8383630 ALBUMIN 4.1 GM/DL 02/03/2012 CHEM 14 8784531 CHLORIDE 101 MMOL/L 02/03/2012 CHEM 14 1916522 BILI TOT 0.3 MG/DL 02/03/2012 CHEM 14 9719338 ALK PHOS 92 U/L 02/03/2012 CHEM 14 2549666 SODIUM 140 MMOL/L 02/03/2012 CHEM 14 8107191 CREATININE 1.34 MG/DL 02/03/2012 CHEM 14 1015168 CALCIUM 9.7 MG/DL 02/03/2012 CHEM 14 3877181 POTASSIUM 4.5 MMOL/L 02/03/2012 CHEM 14 0058219 PROT TOT 6.5 GM/DL 02/03/2012 CHEM 14 5387447 GLUCOSE 118 MG/DL 02/03/2012 CHEM 14 3587202 BICARB 30 MMOL/L 02/03/2012 CHEM 14 2002469 ANION GAP 9 MEQ/L 02/03/2012 Review of Systems System Result Effective Dates Constitutional No recent illness 2016 Constitutional No anorexia 01/21/2017 Constitutional No night sweats 2016 Constitutional No chills 01/21/2017 Constitutional No diaphoresis 01/21/2017 Constitutional fatigue 01/21/2017 Constitutional No fever 01/21/2017 Constitutional No insomnia 01/21/2017 Constitutional malaise 01/21/2017 Constitutional No weight gain 01/21/2017 Constitutional No obesity 01/21/2017 Eyes No eye pain 01/21/2017 Ears/Nose/Throat/Neck No dizziness 2016 Ears/Nose/Throat/Neck No headache 2016 Cardiovascular No chest pain/pressure 06/2016 Cardiovascular No dyspnea 01/21/2017 Cardiovascular No exercise intolerance Cardiovascular fatigue 01/21/2017 Respiratory No chest congestion 2016 Respiratory No chest tightness 2016 Respiratory No cigarette smoking 2016 Respiratory No cough 01/21/2017 Gastrointestinal No abdominal pain 2016 Gastrointestinal No constipation 2016 Gastrointestinal No diarrhea 01/21/2017 Gastrointestinal No nausea 01/21/2017 Gastrointestinal No vomiting 01/21/2017 Genitourinary/Nephrology No anuria/oliguria 01/21/2017 Genitourinary/Nephrology No dysuria 01/21 Musculoskeletal stiffness 01/21/2017 Dermatologic No rash 01/21/2017 Dermatologic No sores 01/21/2017 Neurologic No alteration of consciousness 01/21/2017 Neurologic No headache 01/21/2017 Psychiatric No anxiety 01/21/2017 Psychiatric No depression 01/21/2017 Endocrine No polydipsia 01/21/2017 Endocrine No polyuria 01/21/2017 Constitutional No recent illness 2016 Constitutional No anorexia 10/11/2016 Constitutional No night sweats 2016 Constitutional No chills 10/11/2016 Constitutional No diaphoresis 10/11/2016 Constitutional fatigue 10/11/2016 Constitutional No fever 10/11/2016 Constitutional No insomnia 10/11/2016 Constitutional malaise 10/11/2016 Constitutional No weight gain 10/11/2016 Constitutional No obesity 10/11/2016 Eyes No eye pain 10/11/2016 Ears/Nose/Throat/Neck No dizziness 2016 Ears/Nose/Throat/Neck No headache 2016 Cardiovascular No chest pain/pressure Cardiovascular No dyspnea 10/11/2016 Cardiovascular No exercise intolerance Cardiovascular fatigue 10/11/2016 Respiratory No chest congestion 2016 Respiratory No chest tightness 2016 Respiratory No cigarette smoking 2016 Respiratory No cough 10/11/2016 Gastrointestinal No abdominal pain 2016 Gastrointestinal No constipation 2016 Gastrointestinal No diarrhea 10/11/2016 Gastrointestinal No nausea 10/11/2016 Gastrointestinal No vomiting 10/11/2016 Genitourinary/Nephrology No anuria/oliguria 10/11/2016 Genitourinary/Nephrology No dysuria 10/11 Musculoskeletal stiffness 10/11/2016 Musculoskeletal swelling 10/11/2016 Musculoskeletal arthralgia(s) 10/11/2016 Musculoskeletal back pain 10/11/2016 Dermatologic No rash 10/11/2016 Dermatologic No sores 10/11/2016 Neurologic No alteration of consciousness 10/11/2016 Neurologic No headache 10/11/2016 Psychiatric No anxiety 10/11/2016 Psychiatric No depression 10/11/2016 Endocrine No polydipsia 10/11/2016 Endocrine No polyuria 10/11/2016 Gastrointestinal gastroesophageal reflux 10/11/2016 Constitutional No recent illness 2016 Constitutional No anorexia 08/09/2016 Constitutional No night sweats 2016 Constitutional No chills 08/09/2016 Constitutional No diaphoresis 08/09/2016 Constitutional fatigue 08/09/2016 Constitutional No fever 08/09/2016 Constitutional No insomnia 08/09/2016 Constitutional malaise 08/09/2016 Constitutional No weight gain 08/09/2016 Constitutional No obesity 08/09/2016 Eyes No eye pain 08/09/2016 Ears/Nose/Throat/Neck No dizziness 2016 Ears/Nose/Throat/Neck No headache 2016 Cardiovascular No chest pain/pressure Cardiovascular No dyspnea 08/09/2016 Cardiovascular No exercise intolerance Cardiovascular fatigue 08/09/2016 Respiratory No chest congestion 2016 Respiratory No chest tightness 2016 Respiratory No cigarette smoking 2016 Respiratory No cough 08/09/2016 Gastrointestinal No abdominal pain 2016 Gastrointestinal constipation 08/09/2016 Gastrointestinal No diarrhea 08/09/2016 Gastrointestinal No nausea 08/09/2016 Gastrointestinal No vomiting 08/09/2016 Genitourinary/Nephrology No anuria/oliguria 08/09/2016 Genitourinary/Nephrology No dysuria 08/09 Musculoskeletal stiffness 08/09/2016 Musculoskeletal swelling 08/09/2016 Musculoskeletal arthralgia(s) 08/09/2016 Musculoskeletal back pain 08/09/2016 Dermatologic No rash 08/09/2016 Dermatologic No sores 08/09/2016 Neurologic No alteration of consciousness 08/09/2016 Neurologic No headache 08/09/2016 Psychiatric No anxiety 08/09/2016 Psychiatric No depression 08/09/2016 Endocrine No polydipsia 08/09/2016 Endocrine No polyuria 08/09/2016 Constitutional No recent illness 2016 Constitutional No anorexia 07/11/2016 Constitutional No night sweats 2016 Constitutional No chills 07/11/2016 Constitutional No diaphoresis 07/11/2016 Constitutional fatigue 07/11/2016 Constitutional No fever 07/11/2016 Constitutional No insomnia 07/11/2016 Constitutional malaise 07/11/2016 Constitutional No weight gain 07/11/2016 Constitutional No obesity 07/11/2016 Eyes No eye pain 07/11/2016 Ears/Nose/Throat/Neck dizziness 2016 Ears/Nose/Throat/Neck No headache 2016 Cardiovascular No chest pain/pressure Cardiovascular No dyspnea 07/11/2016 Cardiovascular No exercise intolerance Cardiovascular fatigue 07/11/2016 Respiratory No chest congestion 2016 Respiratory No chest tightness 2016 Respiratory No cigarette smoking 2016 Respiratory No cough 07/11/2016 Gastrointestinal No abdominal pain 2016 Gastrointestinal constipation 07/11/2016 Gastrointestinal No diarrhea 07/11/2016 Gastrointestinal No nausea 07/11/2016 Gastrointestinal No vomiting 07/11/2016 Genitourinary/Nephrology No anuria/oliguria 07/11/2016 Genitourinary/Nephrology No dysuria 07/11 Musculoskeletal stiffness 07/11/2016 Musculoskeletal swelling 07/11/2016 Musculoskeletal arthralgia(s) 07/11/2016 Musculoskeletal back pain 07/11/2016 Dermatologic No rash 07/11/2016 Dermatologic No sores 07/11/2016 Neurologic No alteration of consciousness 07/11/2016 Neurologic No headache 07/11/2016 Psychiatric No anxiety 07/11/2016 Psychiatric No depression 07/11/2016 Endocrine No polydipsia 07/11/2016 Endocrine No polyuria 07/11/2016 Cardiovascular hypertension 07/11/2016 Constitutional No recent illness 2016 Constitutional No anorexia 07/01/2016 Constitutional No night sweats 2016 Constitutional No chills 07/01/2016 Constitutional No diaphoresis 07/01/2016 Constitutional fatigue 07/01/2016 Constitutional No fever 07/01/2016 Constitutional No insomnia 07/01/2016 Constitutional malaise 07/01/2016 Constitutional No weight gain 07/01/2016 Constitutional No obesity 07/01/2016 Eyes No eye pain 07/01/2016 Ears/Nose/Throat/Neck No dizziness 2016 Ears/Nose/Throat/Neck No headache 2016 Cardiovascular No chest pain/pressure Cardiovascular No dyspnea 07/01/2016 Cardiovascular No exercise intolerance Cardiovascular fatigue 07/01/2016 Respiratory No chest congestion 2016 Respiratory No chest tightness 2016 Respiratory No cigarette smoking 2016 Respiratory No cough 07/01/2016 Gastrointestinal No abdominal pain 2016 Gastrointestinal constipation 07/01/2016 Gastrointestinal No diarrhea 07/01/2016 Gastrointestinal No nausea 07/01/2016 Gastrointestinal No vomiting 07/01/2016 Genitourinary/Nephrology No anuria/oliguria 07/01/2016 Genitourinary/Nephrology No dysuria 07/01 Musculoskeletal stiffness 07/01/2016 Musculoskeletal swelling 07/01/2016 Musculoskeletal arthralgia(s) 07/01/2016 Musculoskeletal back pain 07/01/2016 Dermatologic No rash 07/01/2016 Dermatologic No sores 07/01/2016 Neurologic No alteration of consciousness 07/01/2016 Neurologic No headache 07/01/2016 Psychiatric No anxiety 07/01/2016 Psychiatric No depression 07/01/2016 Endocrine No polydipsia 07/01/2016 Endocrine No polyuria 07/01/2016 Constitutional No recent illness 2016 Constitutional No anorexia 06/03/2016 Constitutional No night sweats 2016 Constitutional No chills 06/03/2016 Constitutional No diaphoresis 06/03/2016 Constitutional fatigue 06/03/2016 Constitutional No fever 06/03/2016 Constitutional No insomnia 06/03/2016 Constitutional malaise 06/03/2016 Constitutional No weight gain 06/03/2016 Constitutional No obesity 06/03/2016 Eyes No eye pain 06/03/2016 Eyes vision change 06/03/2016 Ears/Nose/Throat/Neck No dizziness 2016 Ears/Nose/Throat/Neck No headache 2016 Cardiovascular No chest pain/pressure Cardiovascular No dyspnea 06/03/2016 Cardiovascular No exercise intolerance Cardiovascular fatigue 06/03/2016 Respiratory No chest congestion 2016 Respiratory No chest tightness 2016 Respiratory No cigarette smoking 2016 Respiratory No cough 06/03/2016 Gastrointestinal No abdominal pain 2016 Gastrointestinal constipation 06/03/2016 Gastrointestinal No diarrhea 06/03/2016 Gastrointestinal No nausea 06/03/2016 Gastrointestinal No vomiting 06/03/2016 Genitourinary/Nephrology No anuria/oliguria 06/03/2016 Genitourinary/Nephrology No dysuria 06/03 Musculoskeletal stiffness 06/03/2016 Musculoskeletal swelling 06/03/2016 Musculoskeletal arthralgia(s) 06/03/2016 Musculoskeletal back pain 06/03/2016 Dermatologic No rash 06/03/2016 Dermatologic No sores 06/03/2016 Neurologic No alteration of consciousness 06/03/2016 Neurologic No headache 06/03/2016 Psychiatric No anxiety 06/03/2016 Psychiatric No depression 06/03/2016 Endocrine No polydipsia 06/03/2016 Endocrine No polyuria 06/03/2016 Constitutional No recent illness 2016 Constitutional No anorexia 05/20/2016 Constitutional No night sweats 2016 Constitutional No chills 05/20/2016 Constitutional No diaphoresis 05/20/2016 Constitutional No fatigue 05/20/2016 Constitutional No fever 05/20/2016 Constitutional insomnia 05/20/2016 Constitutional No malaise 05/20/2016 Constitutional weight loss 05/20/2016 Eyes No eye pain 05/20/2016 Eyes No vision change 05/20/2016 Ears/Nose/Throat/Neck dizziness 2016 Ears/Nose/Throat/Neck No headache 2016 Cardiovascular No chest pain/pressure 04/2016 Cardiovascular No dyspnea 05/20/2016 Respiratory No chest congestion 2016 Respiratory No chest tightness 2016 Respiratory No cigarette smoking 2016 Respiratory No cough 05/20/2016 Gastrointestinal constipation 05/20/2016 Gastrointestinal No diarrhea 05/20/2016 Gastrointestinal abdominal pain 2016 Gastrointestinal No nausea 05/20/2016 Gastrointestinal No vomiting 05/20/2016 Genitourinary/Nephrology No anuria/oliguria 05/20/2016 Genitourinary/Nephrology No dysuria 05/20 Musculoskeletal No stiffness 05/20/2016 Musculoskeletal No swelling 05/20/2016 Musculoskeletal No arthralgia(s) 2016 Dermatologic No rash 05/20/2016 Neurologic No alteration of consciousness 05/20/2016 Neurologic dizziness 05/20/2016 Psychiatric No anxiety 05/20/2016 Psychiatric No depression 05/20/2016 Hematologic/Lymphatic No abnormal ecchymoses 05/20/2016 Hematologic/Lymphatic No abnormal bleeding and bruising 05/20/2016 Constitutional No recent illness 2016 Constitutional No anorexia 05/07/2016 Constitutional No night sweats 2016 Constitutional No chills 05/07/2016 Constitutional No diaphoresis 05/07/2016 Constitutional fatigue 05/07/2016 Constitutional No fever 05/07/2016 Constitutional No insomnia 05/07/2016 Constitutional malaise 05/07/2016 Constitutional No weight gain 05/07/2016 Constitutional No obesity 05/07/2016 Eyes No eye pain 05/07/2016 Eyes vision change 05/07/2016 Ears/Nose/Throat/Neck dizziness 2016 Ears/Nose/Throat/Neck No headache 2016 Cardiovascular No chest pain/pressure Cardiovascular No dyspnea 05/07/2016 Cardiovascular exercise intolerance 05/07 Cardiovascular fatigue 05/07/2016 Cardiovascular syncope 05/07/2016 Respiratory No chest congestion 2016 Respiratory chest tightness 05/07/2016 Respiratory No cigarette smoking 2016 Respiratory No cough 05/07/2016 Gastrointestinal No abdominal pain 2016 Gastrointestinal No constipation 2016 Gastrointestinal No diarrhea 05/07/2016 Gastrointestinal No nausea 05/07/2016 Gastrointestinal No vomiting 05/07/2016 Genitourinary/Nephrology No anuria/oliguria 05/07/2016 Genitourinary/Nephrology No dysuria 05/07 Musculoskeletal stiffness 05/07/2016 Musculoskeletal swelling 05/07/2016 Musculoskeletal arthralgia(s) 05/07/2016 Musculoskeletal back pain 05/07/2016 Dermatologic No rash 05/07/2016 Dermatologic No sores 05/07/2016 Neurologic No alteration of consciousness 05/07/2016 Neurologic No headache 05/07/2016 Psychiatric No anxiety 05/07/2016 Psychiatric No depression 05/07/2016 Endocrine No polydipsia 05/07/2016 Endocrine No polyuria 05/07/2016 Gastrointestinal gastroesophageal reflux 05/07/2016 Constitutional recent illness 04/23/2016 Constitutional anorexia 04/23/2016 Gastrointestinal No abdominal pain 2016 Gastrointestinal constipation 04/23/2016 Gastrointestinal No diarrhea 04/23/2016 Gastrointestinal No nausea 04/23/2016 Gastrointestinal vomiting 04/23/2016 Eyes No eye erythema 04/23/2016 Eyes No eye discharge 04/23/2016 Ears/Nose/Throat/Neck dizziness 2016 Cardiovascular No chest pain/pressure 08/2016 Respiratory cough 04/23/2016 Respiratory productive sputum 04/23/2016 Genitourinary/Nephrology No dysuria 04/23 Musculoskeletal No joint complaint 2016 Dermatologic No rash 04/23/2016 Neurologic No alteration of consciousness 04/23/2016 Psychiatric No anxiety 04/23/2016 Endocrine No dry or coarse skin 2016 Hematologic/Lymphatic No abnormal ecchymoses 04/23/2016 Constitutional No fever 04/22/2016 Eyes No eye erythema 04/22/2016 Ears/Nose/Throat/Neck No nasal discharge 04/22/2016 Cardiovascular No chest pain/pressure 07/2016 Cardiovascular No dyspnea 04/22/2016 Respiratory No cough 04/22/2016 Respiratory No dyspnea 04/22/2016 Genitourinary/Nephrology urinary retention/hesitancy 04/22/2016 Neurologic No alteration of consciousness 04/22/2016 Neurologic No mental status change 2016 Constitutional No recent illness 2016 Constitutional No anorexia 04/08/2016 Constitutional No night sweats 2016 Constitutional No chills 04/08/2016 Constitutional No diaphoresis 04/08/2016 Constitutional fatigue 04/08/2016 Constitutional No fever 04/08/2016 Constitutional No insomnia 04/08/2016 Constitutional malaise 04/08/2016 Constitutional weight loss 04/08/2016 Constitutional No weight gain 04/08/2016 Constitutional No obesity 04/08/2016 Eyes No eye pain 04/08/2016 Eyes vision change 04/08/2016 Ears/Nose/Throat/Neck dizziness 2016 Ears/Nose/Throat/Neck No headache 2016 Cardiovascular dyspnea 04/08/2016 Cardiovascular No chest pain/pressure Cardiovascular exercise intolerance 04/08 Cardiovascular fatigue 04/08/2016 Cardiovascular syncope 04/08/2016 Respiratory No chest congestion 2016 Respiratory chest tightness 04/08/2016 Respiratory No cough 04/08/2016 Respiratory No cigarette smoking 2016 Gastrointestinal No abdominal pain 2016 Gastrointestinal constipation 04/08/2016 Gastrointestinal No diarrhea 04/08/2016 Gastrointestinal No nausea 04/08/2016 Gastrointestinal No vomiting 04/08/2016 Genitourinary/Nephrology No dysuria 04/08 Genitourinary/Nephrology No anuria/oliguria 04/08/2016 Musculoskeletal stiffness 04/08/2016 Musculoskeletal swelling 04/08/2016 Musculoskeletal arthralgia(s) 04/08/2016 Musculoskeletal back pain 04/08/2016 Dermatologic No rash 04/08/2016 Dermatologic No sores 04/08/2016 Neurologic alteration of consciousness Neurologic No headache 04/08/2016 Psychiatric No anxiety 04/08/2016 Psychiatric No depression 04/08/2016 Endocrine No polyuria 04/08/2016 Endocrine No polydipsia 04/08/2016 Hematologic/Lymphatic abnormal bleeding and bruising 04/08/2016 Constitutional recent illness 03/08/2016 Constitutional anorexia 03/08/2016 Constitutional No night sweats 2016 Constitutional chills 03/08/2016 Constitutional diaphoresis 03/08/2016 Constitutional fatigue 03/08/2016 Constitutional No fever 03/08/2016 Constitutional No insomnia 03/08/2016 Constitutional No malaise 03/08/2016 Constitutional weight loss 03/08/2016 Constitutional No weight gain 03/08/2016 Eyes No eye erythema 03/08/2016 Eyes No eye discharge 03/08/2016 Eyes vision change 03/08/2016 Ears/Nose/Throat/Neck dizziness 2016 Ears/Nose/Throat/Neck headache 2016 Cardiovascular No chest pain/pressure Respiratory No cough 03/08/2016 Gastrointestinal No abdominal pain 2016 Gastrointestinal No constipation 2016 Gastrointestinal No diarrhea 03/08/2016 Genitourinary/Nephrology No dysuria 03/08 Musculoskeletal joint complaint 2016 Dermatologic No rash 03/08/2016 Neurologic No alteration of consciousness 03/08/2016 Constitutional No recent illness 2015 Constitutional No anorexia 12/08/2015 Constitutional No night sweats 2015 Constitutional No chills 12/08/2015 Constitutional No diaphoresis 12/08/2015 Constitutional fatigue 12/08/2015 Constitutional No fever 12/08/2015 Constitutional No insomnia 12/08/2015 Constitutional No malaise 12/08/2015 Constitutional No weight loss 12/08/2015 Constitutional weight gain 12/08/2015 Eyes No eye discharge 12/08/2015 Eyes No eye erythema 12/08/2015 Ears/Nose/Throat/Neck No headache 2015 Cardiovascular No chest pain/pressure Respiratory No cough 12/08/2015 Gastrointestinal No abdominal pain 2015 Musculoskeletal No joint complaint 2015 Dermatologic No rash 12/08/2015 Neurologic No alteration of consciousness 12/08/2015 Ears/Nose/Throat/Neck dizziness 2015 Constitutional No recent illness 2015 Constitutional No anorexia 11/13/2015 Constitutional No night sweats 2015 Constitutional No chills 11/13/2015 Constitutional No diaphoresis 11/13/2015 Constitutional fatigue 11/13/2015 Constitutional No fever 11/13/2015 Constitutional No insomnia 11/13/2015 Constitutional No malaise 11/13/2015 Constitutional No weight loss 11/13/2015 Constitutional weight gain 11/13/2015 Eyes No eye erythema 11/13/2015 Eyes No eye discharge 11/13/2015 Ears/Nose/Throat/Neck dizziness 2015 Ears/Nose/Throat/Neck No headache 2015 Cardiovascular No chest pain/pressure Respiratory No cough 11/13/2015 Gastrointestinal No abdominal pain 2015 Musculoskeletal No joint complaint 2015 Dermatologic No rash 11/13/2015 Neurologic No alteration of consciousness 11/13/2015 Constitutional No recent illness 2015 Constitutional No anorexia 11/03/2015 Constitutional No night sweats 2015 Constitutional No diaphoresis 11/03/2015 Constitutional No fatigue 11/03/2015 Constitutional No fever 11/03/2015 Constitutional No insomnia 11/03/2015 Constitutional No malaise 11/03/2015 Constitutional No weight loss 11/03/2015 Constitutional No weight gain 11/03/2015 Eyes No eye discharge 11/03/2015 Eyes No eye erythema 11/03/2015 Ears/Nose/Throat/Neck No dizziness 2015 Ears/Nose/Throat/Neck headache 2015 Cardiovascular No chest pain/pressure Cardiovascular No dyspnea 11/03/2015 Cardiovascular edema 11/03/2015 Respiratory No productive sputum 2015 Respiratory No chest congestion 2015 Respiratory No cough 11/03/2015 Gastrointestinal No abdominal pain 2015 Gastrointestinal No constipation 2015 Gastrointestinal No diarrhea 11/03/2015 Genitourinary/Nephrology No dysuria 11/02 Musculoskeletal No joint complaint 2015 Dermatologic ecchymosis 11/03/2015 Neurologic No alteration of consciousness 11/03/2015 Neurologic dizziness 11/03/2015 Psychiatric No anxiety 11/03/2015 Endocrine No dry or coarse skin 2015 Hematologic/Lymphatic No abnormal bleeding and bruising 11/03/2015 Constitutional No chills 11/03/2015 Constitutional No recent illness 2015 Constitutional No anorexia 10/20/2015 Constitutional No night sweats 2015 Constitutional chills 10/20/2015 Constitutional No diaphoresis 10/20/2015 Constitutional No fatigue 10/20/2015 Constitutional No fever 10/20/2015 Constitutional No insomnia 10/20/2015 Constitutional No malaise 10/20/2015 Constitutional No weight loss 10/20/2015 Constitutional No weight gain 10/20/2015 Eyes No eye discharge 10/20/2015 Eyes No eye erythema 10/20/2015 Ears/Nose/Throat/Neck No dizziness 2015 Ears/Nose/Throat/Neck headache 2015 Cardiovascular No chest pain/pressure 03/2015 Cardiovascular edema 10/20/2015 Cardiovascular No dyspnea 10/20/2015 Respiratory No productive sputum 2015 Respiratory No chest congestion 2015 Respiratory No cough 10/20/2015 Gastrointestinal No abdominal pain 2015 Gastrointestinal No constipation 2015 Gastrointestinal No diarrhea 10/20/2015 Genitourinary/Nephrology No dysuria 10/19 Musculoskeletal No joint complaint 2015 Dermatologic ecchymosis 10/20/2015 Neurologic No alteration of consciousness 10/20/2015 Neurologic dizziness 10/20/2015 Psychiatric No anxiety 10/20/2015 Endocrine No dry or coarse skin 2015 Hematologic/Lymphatic No abnormal bleeding and bruising 10/20/2015 Constitutional recent illness 09/25/2015 Constitutional No anorexia 09/25/2015 Constitutional No night sweats 2015 Constitutional No fever 09/25/2015 Constitutional fatigue 09/25/2015 Constitutional No diaphoresis 09/25/2015 Constitutional No chills 09/25/2015 Constitutional No insomnia 09/25/2015 Constitutional malaise 09/25/2015 Constitutional No weight loss 09/25/2015 Constitutional No weight gain 09/25/2015 Eyes No eye discharge 09/25/2015 Eyes No eye erythema 09/25/2015 Eyes vision change 09/25/2015 Ears/Nose/Throat/Neck dizziness 2015 Ears/Nose/Throat/Neck headache 2015 Ears/Nose/Throat/Neck No nasal discharge 09/25/2015 Cardiovascular No chest pain/pressure 09/2015 Respiratory No productive sputum 2015 Respiratory No cough 09/25/2015 Respiratory No dyspnea on exertion 2015 Gastrointestinal No abdominal pain 2015 Gastrointestinal constipation 09/25/2015 Gastrointestinal No diarrhea 09/25/2015 Genitourinary/Nephrology No dysuria 09/24 Musculoskeletal No joint complaint 2015 Dermatologic No rash 09/25/2015 Neurologic No alteration of consciousness 09/25/2015 Psychiatric No anxiety 09/25/2015 Endocrine No dry or coarse skin 2015 Constitutional recent illness 09/19/2015 Constitutional No anorexia 09/19/2015 Constitutional No night sweats 2015 Constitutional No chills 09/19/2015 Constitutional No diaphoresis 09/19/2015 Constitutional fatigue 09/19/2015 Constitutional No fever 09/19/2015 Constitutional No insomnia 09/19/2015 Constitutional malaise 09/19/2015 Eyes No eye discharge 09/19/2015 Eyes No eye erythema 09/19/2015 Eyes vision change 09/19/2015 Ears/Nose/Throat/Neck dizziness 2015 Ears/Nose/Throat/Neck headache 2015 Ears/Nose/Throat/Neck No nasal discharge 09/19/2015 Cardiovascular No chest pain/pressure 03/2015 Respiratory No productive sputum 2015 Respiratory No cough 09/19/2015 Respiratory No dyspnea on exertion 2015 Gastrointestinal No abdominal pain 2015 Gastrointestinal No diarrhea 09/19/2015 Genitourinary/Nephrology No dysuria 09/18 Musculoskeletal No joint complaint 2015 Dermatologic No rash 09/19/2015 Neurologic No alteration of consciousness 09/19/2015 Psychiatric No anxiety 09/19/2015 Endocrine No dry or coarse skin 2015 Gastrointestinal nausea 09/19/2015 Constitutional recent illness 08/25/2015 Eyes No eye erythema 08/25/2015 Eyes No vision change 08/25/2015 Ears/Nose/Throat/Neck nasal allergies 09/2015 Cardiovascular No chest pain/pressure 09/2015 Respiratory dyspnea on exertion 2015 Gastrointestinal No nausea 08/25/2015 Gastrointestinal No vomiting 08/25/2015 Neurologic No alteration of consciousness 08/25/2015 Neurologic No mental status change 2015 Constitutional fatigue 08/25/2015 Respiratory cough 08/25/2015 Constitutional fatigue 08/18/2015 Eyes No vision change 08/18/2015 Ears/Nose/Throat/Neck nasal allergies 02/2015 Ears/Nose/Throat/Neck nasal discharge 02/2015 Cardiovascular No chest pain/pressure 02/2015 Respiratory chest congestion 08/18/2015 Respiratory cough 08/18/2015 Respiratory dyspnea on exertion 2015 Neurologic No alteration of consciousness 08/18/2015 Constitutional recent illness 08/18/2015 Eyes No eye erythema 08/18/2015 Gastrointestinal No vomiting 08/18/2015 Gastrointestinal No nausea 08/18/2015 Neurologic No mental status change 2015 Constitutional No recent illness 2015 Constitutional No anorexia 08/14/2015 Constitutional No night sweats 2015 Constitutional No chills 08/14/2015 Constitutional No diaphoresis 08/14/2015 Constitutional fatigue 08/14/2015 Constitutional No fever 08/14/2015 Constitutional No insomnia 08/14/2015 Constitutional No malaise 08/14/2015 Eyes No vision change 08/14/2015 Ears/Nose/Throat/Neck No nasal allergies 08/14/2015 Ears/Nose/Throat/Neck No nasal discharge 08/14/2015 Ears/Nose/Throat/Neck No otalgia 2015 Ears/Nose/Throat/Neck No otitis media Ears/Nose/Throat/Neck No sinus congestion 08/14/2015 Ears/Nose/Throat/Neck No sore throat Cardiovascular No chest pain/pressure Cardiovascular No dyspnea 08/14/2015 Respiratory No productive sputum 2015 Respiratory No chest congestion 2015 Respiratory No chest tightness 2015 Respiratory No cigarette smoking 2015 Respiratory No cough 08/14/2015 Respiratory dyspnea on exertion 2015 Respiratory No dyspnea 08/14/2015 Gastrointestinal No constipation 2015 Gastrointestinal No diarrhea 08/14/2015 Genitourinary/Nephrology No dysuria 08/13 Musculoskeletal No joint complaint 2015 Musculoskeletal No muscle weakness 2015 Musculoskeletal No myalgias 08/14/2015 Dermatologic No rash 08/14/2015 Neurologic No alteration of consciousness 08/14/2015 Psychiatric No anxiety 08/14/2015 Constitutional fatigue 08/08/2015 Constitutional No fever 08/08/2015 Eyes No vision change 08/08/2015 Ears/Nose/Throat/Neck No nasal allergies 08/08/2015 Ears/Nose/Throat/Neck No nasal discharge 08/08/2015 Cardiovascular No chest pain/pressure Cardiovascular No dyspnea 08/08/2015 Respiratory No chest congestion 2015 Respiratory No cough 08/08/2015 Respiratory No dyspnea 08/08/2015 Gastrointestinal No constipation 2015 Gastrointestinal No diarrhea 08/08/2015 Neurologic No alteration of consciousness 08/08/2015 Respiratory dyspnea on exertion 2015 Dermatologic sores 08/08/2015 Constitutional No recent illness 2015 Constitutional No anorexia 06/15/2015 Constitutional No night sweats 2015 Constitutional No chills 06/15/2015 Constitutional No diaphoresis 06/15/2015 Constitutional fatigue 06/15/2015 Constitutional No fever 06/15/2015 Constitutional No insomnia 06/15/2015 Constitutional No malaise 06/15/2015 Constitutional No weight loss 06/15/2015 Constitutional No weight gain 06/15/2015 Constitutional No obesity 06/15/2015 Eyes No vision change 06/15/2015 Ears/Nose/Throat/Neck No nasal allergies 06/15/2015 Ears/Nose/Throat/Neck No nasal discharge 06/15/2015 Ears/Nose/Throat/Neck No otalgia 2015 Ears/Nose/Throat/Neck No otitis media Ears/Nose/Throat/Neck No sinus congestion 06/15/2015 Ears/Nose/Throat/Neck No sore throat Cardiovascular No chest pain/pressure Cardiovascular No dyspnea 06/15/2015 Respiratory No productive sputum 2015 Respiratory No chest congestion 2015 Respiratory No chest tightness 2015 Respiratory No cigarette smoking 2015 Respiratory dyspnea on exertion 2015 Respiratory No dyspnea 06/15/2015 Gastrointestinal No constipation 2015 Gastrointestinal No diarrhea 06/15/2015 Genitourinary/Nephrology No dysuria 06/14 Musculoskeletal No joint complaint 2015 Musculoskeletal No muscle weakness 2015 Musculoskeletal No myalgias 06/15/2015 Dermatologic No rash 06/15/2015 Neurologic No alteration of consciousness 06/15/2015 Psychiatric No anxiety 06/15/2015 Respiratory No cough 06/15/2015 Constitutional No recent illness 2015 Constitutional No anorexia 05/18/2015 Constitutional No night sweats 2015 Constitutional No chills 05/18/2015 Constitutional No diaphoresis 05/18/2015 Constitutional No fatigue 05/18/2015 Constitutional No fever 05/18/2015 Constitutional No insomnia 05/18/2015 Constitutional No malaise 05/18/2015 Constitutional No weight loss 05/18/2015 Constitutional No weight gain 05/18/2015 Constitutional No obesity 05/18/2015 Eyes No vision change 05/18/2015 Ears/Nose/Throat/Neck No nasal discharge 05/18/2015 Ears/Nose/Throat/Neck No nasal allergies 05/18/2015 Ears/Nose/Throat/Neck No otitis media Ears/Nose/Throat/Neck No otalgia 2015 Ears/Nose/Throat/Neck No sore throat Ears/Nose/Throat/Neck No sinus congestion 05/18/2015 Cardiovascular No chest pain/pressure Cardiovascular No dyspnea 05/18/2015 Respiratory No dyspnea 05/18/2015 Respiratory dyspnea on exertion 2015 Respiratory cough 05/18/2015 Respiratory No productive sputum 2015 Respiratory No chest tightness 2015 Respiratory No cigarette smoking 2015 Respiratory No chest congestion 2015 Gastrointestinal No constipation 2015 Gastrointestinal No diarrhea 05/18/2015 Genitourinary/Nephrology No dysuria 05/17 Musculoskeletal No myalgias 05/18/2015 Musculoskeletal No muscle weakness 2015 Musculoskeletal No joint complaint 2015 Dermatologic No rash 05/18/2015 Neurologic No alteration of consciousness 05/18/2015 Psychiatric No anxiety 05/18/2015 Constitutional recent illness 02/21/2015 Constitutional No anorexia 02/21/2015 Constitutional No night sweats 2015 Constitutional No chills 02/21/2015 Constitutional No diaphoresis 02/21/2015 Constitutional fatigue 02/21/2015 Constitutional No fever 02/21/2015 Constitutional No insomnia 02/21/2015 Constitutional No malaise 02/21/2015 Constitutional No weight loss 02/21/2015 Constitutional No weight gain 02/21/2015 Eyes No eye erythema 02/21/2015 Eyes No eye discharge 02/21/2015 Ears/Nose/Throat/Neck No dizziness 2015 Ears/Nose/Throat/Neck No headache 2015 Cardiovascular No chest pain/pressure 06/2015 Cardiovascular No dyspnea 02/21/2015 Cardiovascular No edema 02/21/2015 Respiratory No productive sputum 2015 Respiratory No chest congestion 2015 Respiratory cough 02/21/2015 Respiratory dyspnea on exertion 2015 Gastrointestinal constipation 02/21/2015 Gastrointestinal No diarrhea 02/21/2015 Gastrointestinal No abdominal pain 2015 Genitourinary/Nephrology No dysuria 02/21 Musculoskeletal No joint complaint 2015 Dermatologic No rash 02/21/2015 Dermatologic No sores 02/21/2015 Neurologic No alteration of consciousness 02/21/2015 Psychiatric No depression 02/21/2015 Psychiatric No anxiety 02/21/2015 Endocrine No dry or coarse skin 2015 Hematologic/Lymphatic No abnormal bleeding and bruising 02/21/2015 Constitutional No anorexia 12/16/2014 Constitutional No night sweats 2014 Constitutional No chills 12/16/2014 Constitutional No diaphoresis 12/16/2014 Constitutional fatigue 12/16/2014 Constitutional No fever 12/16/2014 Constitutional No insomnia 12/16/2014 Constitutional No malaise 12/16/2014 Eyes No eye discharge 12/16/2014 Eyes No eye erythema 12/16/2014 Cardiovascular No chest pain/pressure Respiratory No productive sputum 2014 Respiratory No chest congestion 2014 Gastrointestinal No abdominal pain 2014 Gastrointestinal No diarrhea 12/16/2014 Gastrointestinal nausea 12/16/2014 Gastrointestinal No vomiting 12/16/2014 Genitourinary/Nephrology No dysuria 12/16 Musculoskeletal No joint complaint 2014 Dermatologic No rash 12/16/2014 Dermatologic No scar 12/16/2014 Psychiatric No anxiety 12/16/2014 Psychiatric No depression 12/16/2014 Endocrine diabetes mellitus type 2 2014 Respiratory No dyspnea 12/16/2014 Gastrointestinal constipation 12/16/2014 Neurologic No alteration of consciousness 12/16/2014 Constitutional No anorexia 11/22/2014 Constitutional No night sweats 2014 Constitutional No chills 11/22/2014 Constitutional No diaphoresis 11/22/2014 Constitutional fatigue 11/22/2014 Constitutional No fever 11/22/2014 Constitutional No insomnia 11/22/2014 Constitutional No malaise 11/22/2014 Eyes No eye discharge 11/22/2014 Eyes No eye erythema 11/22/2014 Cardiovascular No chest pain/pressure 07/2014 Respiratory No productive sputum 2014 Respiratory No chest congestion 2014 Respiratory cough 11/22/2014 Gastrointestinal No abdominal pain 2014 Gastrointestinal No constipation 2014 Gastrointestinal No diarrhea 11/22/2014 Gastrointestinal No nausea 11/22/2014 Gastrointestinal No vomiting 11/22/2014 Genitourinary/Nephrology No dysuria 11/22 Musculoskeletal No joint complaint 2014 Psychiatric No anxiety 11/22/2014 Psychiatric No depression 11/22/2014 Endocrine dry or coarse skin 11/22/2014 Endocrine weakness 11/22/2014 Endocrine diabetes mellitus type 2 2014 Dermatologic No rash 11/22/2014 Dermatologic No scar 11/22/2014 Neurologic neck pain 11/22/2014 Neurologic pain, limb 11/22/2014 Constitutional No recent illness 2014 Constitutional anorexia 10/27/2014 Constitutional No night sweats 2014 Constitutional No chills 10/27/2014 Constitutional No diaphoresis 10/27/2014 Constitutional fatigue 10/27/2014 Constitutional No fever 10/27/2014 Constitutional No insomnia 10/27/2014 Constitutional No malaise 10/27/2014 Constitutional No weight loss 10/27/2014 Constitutional No weight gain 10/27/2014 Eyes No eye discharge 10/27/2014 Eyes No eye erythema 10/27/2014 Eyes vision change 10/27/2014 Ears/Nose/Throat/Neck dizziness 2014 Ears/Nose/Throat/Neck headache 2014 Ears/Nose/Throat/Neck No nasal allergies 10/27/2014 Ears/Nose/Throat/Neck No nasal discharge 10/27/2014 Ears/Nose/Throat/Neck No otalgia 2014 Ears/Nose/Throat/Neck No sinus congestion 10/27/2014 Cardiovascular chest pain/pressure 2014 Cardiovascular dyspnea 10/27/2014 Cardiovascular No edema 10/27/2014 Cardiovascular near-syncope/dizziness 11/2014 Cardiovascular syncope 10/27/2014 Respiratory No productive sputum 2014 Respiratory No chest congestion 2014 Respiratory No cough 10/27/2014 Gastrointestinal No abdominal pain 2014 Gastrointestinal No diarrhea 10/27/2014 Gastrointestinal No constipation 2014 Genitourinary/Nephrology No dysuria 10/27 Musculoskeletal back pain 10/27/2014 Dermatologic No rash 10/27/2014 Dermatologic No sores 10/27/2014 Neurologic dizziness 10/27/2014 Neurologic syncope 10/27/2014 Psychiatric No anxiety 10/27/2014 Psychiatric No depression 10/27/2014 Endocrine No polyuria 10/27/2014 Endocrine polydipsia 10/27/2014 Hematologic/Lymphatic No abnormal bleeding and bruising 10/27/2014 Allergy/Immunology No angioedema 2014 Constitutional No recent illness 2014 Constitutional No anorexia 09/06/2014 Constitutional No chills 09/06/2014 Constitutional No fever 09/06/2014 Ears/Nose/Throat/Neck No dizziness 2014 Ears/Nose/Throat/Neck No headache 2014 Cardiovascular No chest pain/pressure Cardiovascular No dyspnea 09/06/2014 Cardiovascular No edema 09/06/2014 Respiratory No chest congestion 2014 Respiratory No chest tightness 2014 Respiratory No cough 09/06/2014 Musculoskeletal No stiffness 09/06/2014 Musculoskeletal No swelling 09/06/2014 Psychiatric No anxiety 09/06/2014 Psychiatric No depression 09/06/2014 Gastrointestinal No abdominal pain 2014 Gastrointestinal No constipation 2014 Gastrointestinal No diarrhea 09/06/2014 Eyes No eye discharge 09/06/2014 Genitourinary/Nephrology No dysuria 09/06 Dermatologic rash 09/06/2014 Dermatologic sores 09/06/2014 Constitutional recent illness 08/02/2014 Constitutional No anorexia 08/02/2014 Constitutional No night sweats 2014 Constitutional fatigue 08/02/2014 Constitutional No fever 08/02/2014 Eyes No eye discharge 08/02/2014 Eyes No eye erythema 08/02/2014 Ears/Nose/Throat/Neck dizziness 2014 Ears/Nose/Throat/Neck headache 2014 Cardiovascular No chest pain/pressure Respiratory productive sputum 08/02/2014 Respiratory chest congestion 08/02/2014 Respiratory cough 08/02/2014 Respiratory dyspnea on exertion 2014 Gastrointestinal No abdominal pain 2014 Gastrointestinal No constipation 2014 Gastrointestinal No diarrhea 08/02/2014 Genitourinary/Nephrology No dysuria 08/02 Musculoskeletal No joint complaint 2014 Dermatologic No rash 08/02/2014 Neurologic dizziness 08/02/2014 Psychiatric No anxiety 08/02/2014 Gastrointestinal nausea 08/02/2014 Gastrointestinal vomiting 08/02/2014 Constitutional recent illness 07/26/2014 Constitutional No anorexia 07/26/2014 Constitutional fatigue 07/26/2014 Constitutional No fever 07/26/2014 Constitutional No night sweats 2014 Eyes No eye discharge 07/26/2014 Eyes No eye erythema 07/26/2014 Ears/Nose/Throat/Neck dizziness 2014 Ears/Nose/Throat/Neck headache 2014 Cardiovascular No chest pain/pressure 10/2014 Respiratory productive sputum 07/26/2014 Respiratory chest congestion 07/26/2014 Respiratory cough 07/26/2014 Respiratory dyspnea on exertion 2014 Gastrointestinal No abdominal pain 2014 Gastrointestinal No constipation 2014 Gastrointestinal No diarrhea 07/26/2014 Genitourinary/Nephrology No dysuria 07/26 Musculoskeletal No joint complaint 2014 Dermatologic No rash 07/26/2014 Neurologic dizziness 07/26/2014 Psychiatric No anxiety 07/26/2014 Constitutional recent illness 07/19/2014 Constitutional anorexia 07/19/2014 Constitutional No fever 07/19/2014 Constitutional fatigue 07/19/2014 Constitutional No diaphoresis 07/19/2014 Constitutional No chills 07/19/2014 Constitutional No night sweats 2014 Constitutional insomnia 07/19/2014 Constitutional weight loss 07/19/2014 Eyes No eye discharge 07/19/2014 Eyes No eye erythema 07/19/2014 Ears/Nose/Throat/Neck dizziness 2014 Ears/Nose/Throat/Neck headache 2014 Ears/Nose/Throat/Neck No nasal allergies 07/19/2014 Ears/Nose/Throat/Neck No nasal discharge 07/19/2014 Cardiovascular No chest pain/pressure 03/2014 Cardiovascular dyspnea 07/19/2014 Cardiovascular edema 07/19/2014 Respiratory No productive sputum 2014 Respiratory No chest congestion 2014 Respiratory cough 07/19/2014 Gastrointestinal No abdominal pain 2014 Gastrointestinal constipation 07/19/2014 Gastrointestinal No diarrhea 07/19/2014 Gastrointestinal No nausea 07/19/2014 Genitourinary/Nephrology No dysuria 07/19 Musculoskeletal No joint complaint 2014 Dermatologic No rash 07/19/2014 Dermatologic No sores 07/19/2014 Neurologic No alteration of consciousness 07/19/2014 Psychiatric No anxiety 07/19/2014 Psychiatric No depression 07/19/2014 Endocrine No dry or coarse skin 2014 Hematologic/Lymphatic No abnormal bleeding and bruising 07/19/2014 Constitutional No chills 04/01/2014 Constitutional No diaphoresis 04/01/2014 Constitutional fatigue 04/01/2014 Constitutional No fever 04/01/2014 Constitutional insomnia 04/01/2014 Ears/Nose/Throat/Neck neck pain 2014 Cardiovascular No chest pain/pressure Cardiovascular No dyspnea 04/01/2014 Respiratory No cigarette smoking 2014 Respiratory cough 04/01/2014 Gastrointestinal No abdominal pain 2014 Gastrointestinal No constipation 2014 Gastrointestinal No diarrhea 04/01/2014 Gastrointestinal nausea 04/01/2014 Gastrointestinal vomiting 04/01/2014 Genitourinary/Nephrology No dysuria 04/01 Musculoskeletal back pain 04/01/2014 Musculoskeletal neck pain 04/01/2014 Neurologic dizziness 04/01/2014 Neurologic headache 04/01/2014 Neurologic neck pain 04/01/2014 Psychiatric No anxiety 04/01/2014 Psychiatric No depression 04/01/2014 Constitutional recent illness 03/14/2014 Constitutional No chills 03/14/2014 Constitutional No diaphoresis 03/14/2014 Constitutional fatigue 03/14/2014 Constitutional No fever 03/14/2014 Constitutional insomnia 03/14/2014 Eyes eye floaters 03/14/2014 Ears/Nose/Throat/Neck neck pain 2014 Ears/Nose/Throat/Neck postnasal drip Cardiovascular No chest pain/pressure Cardiovascular No dyspnea 03/14/2014 Respiratory No cigarette smoking 2014 Respiratory cough 03/14/2014 Gastrointestinal No abdominal pain 2014 Gastrointestinal No constipation 2014 Gastrointestinal No diarrhea 03/14/2014 Gastrointestinal nausea 03/14/2014 Gastrointestinal vomiting 03/14/2014 Genitourinary/Nephrology No dysuria 03/14 Musculoskeletal back pain 03/14/2014 Musculoskeletal neck pain 03/14/2014 Neurologic dizziness 03/14/2014 Neurologic headache 03/14/2014 Neurologic neck pain 03/14/2014 Constitutional recent illness 02/21/2014 Constitutional No chills 02/21/2014 Constitutional No diaphoresis 02/21/2014 Constitutional No fever 02/21/2014 Constitutional fatigue 02/21/2014 Constitutional insomnia 02/21/2014 Eyes eye floaters 02/21/2014 Cardiovascular No chest pain/pressure 06/2014 Cardiovascular No dyspnea 02/21/2014 Respiratory cough 02/21/2014 Respiratory No cigarette smoking 2014 Gastrointestinal nausea 02/21/2014 Gastrointestinal No abdominal pain 2014 Gastrointestinal vomiting 02/21/2014 Gastrointestinal No constipation 2014 Gastrointestinal No diarrhea 02/21/2014 Genitourinary/Nephrology No dysuria 02/21 Musculoskeletal back pain 02/21/2014 Musculoskeletal neck pain 02/21/2014 Neurologic dizziness 02/21/2014 Neurologic neck pain 02/21/2014 Neurologic headache 02/21/2014 Ears/Nose/Throat/Neck postnasal drip 06/2014 Ears/Nose/Throat/Neck neck pain 2014 Constitutional recent illness 01/18/2014 Constitutional No night sweats 2013 Constitutional No chills 01/18/2014 Constitutional No diaphoresis 01/18/2014 Constitutional No fatigue 01/18/2014 Constitutional No fever 01/18/2014 Constitutional No insomnia 01/18/2014 Constitutional No malaise 01/18/2014 Eyes No eye discharge 01/18/2014 Eyes No eye erythema 01/18/2014 Eyes No vision change 01/18/2014 Ears/Nose/Throat/Neck headache 2013 Ears/Nose/Throat/Neck No dizziness 2013 Ears/Nose/Throat/Neck No nasal discharge 01/18/2014 Cardiovascular No chest pain/pressure 03/2013 Cardiovascular No dyspnea 01/18/2014 Respiratory No productive sputum 2013 Respiratory No chest congestion 2013 Gastrointestinal No constipation 2013 Gastrointestinal No diarrhea 01/18/2014 Gastrointestinal nausea 01/18/2014 Genitourinary/Nephrology No dysuria 01/18 Dermatologic No sores 01/18/2014 Dermatologic No rash 01/18/2014 Neurologic No aphasia 01/18/2014 Constitutional recent illness 09/09/2013 Constitutional No anorexia 09/09/2013 Constitutional No night sweats 2013 Constitutional No chills 09/09/2013 Constitutional No diaphoresis 09/09/2013 Constitutional fatigue 09/09/2013 Constitutional No fever 09/09/2013 Constitutional No insomnia 09/09/2013 Constitutional No malaise 09/09/2013 Eyes No eye discharge 09/09/2013 Eyes No eye erythema 09/09/2013 Cardiovascular No chest pain/pressure Respiratory No productive sputum 2013 Respiratory No chest congestion 2013 Respiratory cough 09/09/2013 Gastrointestinal No abdominal pain 2013 Gastrointestinal No constipation 2013 Gastrointestinal No diarrhea 09/09/2013 Gastrointestinal No nausea 09/09/2013 Gastrointestinal No vomiting 09/09/2013 Genitourinary/Nephrology No dysuria 09/09 Musculoskeletal No joint complaint 2013 Psychiatric No anxiety 09/09/2013 Psychiatric No depression 09/09/2013 Endocrine dry or coarse skin 09/09/2013 Endocrine weakness 09/09/2013 Endocrine diabetes mellitus type 2 2013 Cardiovascular No dyspnea 09/09/2013 Cardiovascular No edema 09/09/2013 Constitutional No recent illness 2013 Constitutional No anorexia 08/19/2013 Constitutional No chills 08/19/2013 Constitutional fatigue 08/19/2013 Constitutional No fever 08/19/2013 Constitutional malaise 08/19/2013 Ears/Nose/Throat/Neck No dizziness 2013 Ears/Nose/Throat/Neck No headache 2013 Cardiovascular No chest pain/pressure 04/2013 Cardiovascular No dyspnea 08/19/2013 Cardiovascular No edema 08/19/2013 Cardiovascular fatigue 08/19/2013 Respiratory No cough 08/19/2013 Respiratory No chest congestion 2013 Respiratory No chest tightness 2013 Psychiatric No anxiety 08/19/2013 Psychiatric No depression 08/19/2013 Musculoskeletal No stiffness 08/19/2013 Musculoskeletal No swelling 08/19/2013 Musculoskeletal No muscle weakness 2013 Musculoskeletal myalgias 08/19/2013 Musculoskeletal back pain 08/19/2013 Constitutional recent illness 08/02/2013 Constitutional No anorexia 08/02/2013 Constitutional No night sweats 2013 Constitutional No chills 08/02/2013 Constitutional No diaphoresis 08/02/2013 Constitutional fatigue 08/02/2013 Constitutional No fever 08/02/2013 Constitutional No insomnia 08/02/2013 Constitutional No malaise 08/02/2013 Eyes No eye discharge 08/02/2013 Eyes No eye erythema 08/02/2013 Cardiovascular No chest pain/pressure Respiratory No productive sputum 2013 Respiratory No chest congestion 2013 Respiratory cough 08/02/2013 Gastrointestinal No abdominal pain 2013 Gastrointestinal No constipation 2013 Gastrointestinal No diarrhea 08/02/2013 Gastrointestinal No nausea 08/02/2013 Gastrointestinal No vomiting 08/02/2013 Genitourinary/Nephrology No dysuria 08/02 Musculoskeletal No joint complaint 2013 Psychiatric No anxiety 08/02/2013 Psychiatric No depression 08/02/2013 Neurologic memory loss 08/02/2013 Endocrine dry or coarse skin 08/02/2013 Endocrine weakness 08/02/2013 Endocrine diabetes mellitus type 2 2013 Cardiovascular No chest pain/pressure Cardiovascular No dyspnea 07/08/2013 Cardiovascular No edema 07/08/2013 Respiratory No productive sputum 2013 Respiratory No chest congestion 2013 Respiratory No cough 07/08/2013 Gastrointestinal No abdominal pain 2013 Gastrointestinal No constipation 2013 Gastrointestinal No diarrhea 07/08/2013 Gastrointestinal No vomiting 07/08/2013 Gastrointestinal No nausea 07/08/2013 Genitourinary/Nephrology No dysuria 07/08 Musculoskeletal No joint complaint 2013 Dermatologic No sores 07/08/2013 Dermatologic No rash 07/08/2013 Ears/Nose/Throat/Neck dizziness 2013 Ears/Nose/Throat/Neck No headache 2013 Ears/Nose/Throat/Neck No nasal discharge 07/08/2013 Ears/Nose/Throat/Neck No otalgia 2013 Ears/Nose/Throat/Neck No sinus congestion 07/08/2013 Eyes No eye discharge 07/08/2013 Eyes No eye erythema 07/08/2013 Constitutional No recent illness 2013 Constitutional No anorexia 07/08/2013 Constitutional No night sweats 2013 Constitutional No chills 07/08/2013 Constitutional No diaphoresis 07/08/2013 Constitutional fatigue 07/08/2013 Constitutional No fever 07/08/2013 Constitutional insomnia 07/08/2013 Constitutional No malaise 07/08/2013 Respiratory No dyspnea 07/08/2013 Neurologic syncope 07/08/2013 Constitutional No recent illness 2013 Constitutional No night sweats 2013 Constitutional No anorexia 07/01/2013 Constitutional No chills 07/01/2013 Constitutional No diaphoresis 07/01/2013 Constitutional fatigue 07/01/2013 Constitutional No fever 07/01/2013 Constitutional No insomnia 07/01/2013 Constitutional No malaise 07/01/2013 Eyes No eye discharge 07/01/2013 Eyes No eye erythema 07/01/2013 Ears/Nose/Throat/Neck dizziness 2013 Ears/Nose/Throat/Neck No headache 2013 Ears/Nose/Throat/Neck No nasal discharge 07/01/2013 Cardiovascular No chest pain/pressure Cardiovascular No dyspnea 07/01/2013 Respiratory cough 07/01/2013 Respiratory No chest congestion 2013 Gastrointestinal No abdominal pain 2013 Gastrointestinal No constipation 2013 Gastrointestinal No diarrhea 07/01/2013 Gastrointestinal No vomiting 07/01/2013 Gastrointestinal No nausea 07/01/2013 Genitourinary/Nephrology No dysuria 07/01 Musculoskeletal No joint complaint 2013 Dermatologic No sores 07/01/2013 Dermatologic No rash 07/01/2013 Neurologic No alteration of consciousness 07/01/2013 Constitutional No recent illness 2013 Constitutional No anorexia 06/21/2013 Constitutional No night sweats 2013 Constitutional No chills 06/21/2013 Constitutional No diaphoresis 06/21/2013 Constitutional No fatigue 06/21/2013 Constitutional No fever 06/21/2013 Constitutional No insomnia 06/21/2013 Constitutional No malaise 06/21/2013 Eyes No eye discharge 06/21/2013 Eyes No eye erythema 06/21/2013 Ears/Nose/Throat/Neck No dizziness 2013 Ears/Nose/Throat/Neck headache 2013 Ears/Nose/Throat/Neck No nasal allergies 06/21/2013 Ears/Nose/Throat/Neck No nasal discharge 06/21/2013 Ears/Nose/Throat/Neck No sore throat 06/2013 Respiratory No productive sputum 2013 Respiratory No chest congestion 2013 Respiratory No cough 06/21/2013 Gastrointestinal No abdominal pain 2013 Gastrointestinal No constipation 2013 Gastrointestinal No diarrhea 06/21/2013 Gastrointestinal No nausea 06/21/2013 Genitourinary/Nephrology No dysuria 06/21 Musculoskeletal No joint complaint 2013 Dermatologic No rash 06/21/2013 Dermatologic No sores 06/21/2013 Neurologic No alteration of consciousness 06/21/2013 Psychiatric No anxiety 06/21/2013 Psychiatric No depression 06/21/2013 Constitutional recent illness 06/07/2013 Constitutional No anorexia 06/07/2013 Constitutional No night sweats 2013 Constitutional No fever 06/07/2013 Constitutional fatigue 06/07/2013 Constitutional No diaphoresis 06/07/2013 Constitutional No chills 06/07/2013 Constitutional No insomnia 06/07/2013 Constitutional No malaise 06/07/2013 Eyes No eye discharge 06/07/2013 Eyes No eye erythema 06/07/2013 Ears/Nose/Throat/Neck No dizziness 2013 Ears/Nose/Throat/Neck No headache 2013 Ears/Nose/Throat/Neck No nasal discharge 06/07/2013 Ears/Nose/Throat/Neck No nasal allergies 06/07/2013 Ears/Nose/Throat/Neck No sore throat Ears/Nose/Throat/Neck No otalgia 2013 Ears/Nose/Throat/Neck No sinus congestion 06/07/2013 Cardiovascular No chest pain/pressure Cardiovascular No dyspnea 06/07/2013 Cardiovascular No edema 06/07/2013 Gastrointestinal No abdominal pain 2013 Gastrointestinal No constipation 2013 Gastrointestinal No diarrhea 06/07/2013 Gastrointestinal No vomiting 06/07/2013 Gastrointestinal No nausea 06/07/2013 Genitourinary/Nephrology No dysuria 06/07 Musculoskeletal No joint complaint 2013 Dermatologic No sores 06/07/2013 Dermatologic No rash 06/07/2013 Neurologic No alteration of consciousness 06/07/2013 Constitutional recent illness 05/17/2013 Constitutional anorexia 05/17/2013 Constitutional chills 05/17/2013 Constitutional diaphoresis 05/17/2013 Constitutional fatigue 05/17/2013 Constitutional fever 05/17/2013 Constitutional No insomnia 05/17/2013 Eyes No eye discharge 05/17/2013 Eyes No eye erythema 05/17/2013 Ears/Nose/Throat/Neck No nasal discharge 05/17/2013 Ears/Nose/Throat/Neck headache 2013 Ears/Nose/Throat/Neck No sore throat Ears/Nose/Throat/Neck No otalgia 2013 Cardiovascular No chest pain/pressure Genitourinary/Nephrology No dysuria 05/17 Dermatologic No sores 05/17/2013 Dermatologic No rash 05/17/2013 Musculoskeletal No joint complaint 2013 Neurologic No alteration of consciousness 05/17/2013 Neurologic No syncope 05/17/2013 Psychiatric No anxiety 05/17/2013 Constitutional No recent illness 2013 Constitutional anorexia 04/29/2013 Constitutional No night sweats 2013 Constitutional No chills 04/29/2013 Constitutional No diaphoresis 04/29/2013 Constitutional fatigue 04/29/2013 Constitutional No fever 04/29/2013 Constitutional insomnia 04/29/2013 Constitutional No malaise 04/29/2013 Constitutional weight loss 04/29/2013 Constitutional No weight gain 04/29/2013 Eyes No eye discharge 04/29/2013 Eyes No eye erythema 04/29/2013 Ears/Nose/Throat/Neck No dizziness 2013 Ears/Nose/Throat/Neck No headache 2013 Cardiovascular No chest pain/pressure Cardiovascular No dyspnea 04/29/2013 Cardiovascular No edema 04/29/2013 Respiratory No productive sputum 2013 Respiratory No chest congestion 2013 Respiratory No cough 04/29/2013 Respiratory apneic events 04/29/2013 Gastrointestinal No abdominal pain 2013 Gastrointestinal No constipation 2013 Gastrointestinal No diarrhea 04/29/2013 Gastrointestinal No vomiting 04/29/2013 Gastrointestinal nausea 04/29/2013 Genitourinary/Nephrology No dysuria 04/29 Musculoskeletal No joint complaint 2013 Dermatologic No sores 04/29/2013 Dermatologic No rash 04/29/2013 Neurologic No alteration of consciousness 04/29/2013 Constitutional No recent illness 2013 Constitutional No anorexia 03/26/2013 Constitutional No night sweats 2013 Constitutional No chills 03/26/2013 Constitutional No diaphoresis 03/26/2013 Constitutional No fatigue 03/26/2013 Constitutional No fever 03/26/2013 Constitutional No insomnia 03/26/2013 Constitutional No malaise 03/26/2013 Eyes No eye discharge 03/26/2013 Eyes No eye erythema 03/26/2013 Ears/Nose/Throat/Neck No dizziness 2013 Ears/Nose/Throat/Neck headache 2013 Ears/Nose/Throat/Neck No nasal allergies 03/26/2013 Ears/Nose/Throat/Neck No nasal discharge 03/26/2013 Ears/Nose/Throat/Neck No sore throat 08/2013 Respiratory No productive sputum 2013 Respiratory No chest congestion 2013 Respiratory No cough 03/26/2013 Gastrointestinal No abdominal pain 2013 Gastrointestinal No constipation 2013 Gastrointestinal No diarrhea 03/26/2013 Gastrointestinal No nausea 03/26/2013 Genitourinary/Nephrology No dysuria 03/26 Musculoskeletal No joint complaint 2013 Dermatologic No rash 03/26/2013 Dermatologic No sores 03/26/2013 Neurologic No alteration of consciousness 03/26/2013 Constitutional No recent illness 2013 Constitutional No anorexia 03/16/2013 Constitutional No night sweats 2013 Constitutional No chills 03/16/2013 Constitutional No diaphoresis 03/16/2013 Constitutional fatigue 03/16/2013 Constitutional No fever 03/16/2013 Constitutional No insomnia 03/16/2013 Constitutional No malaise 03/16/2013 Eyes No eye discharge 03/16/2013 Eyes No eye erythema 03/16/2013 Ears/Nose/Throat/Neck No dizziness 2013 Ears/Nose/Throat/Neck No nasal discharge 03/16/2013 Ears/Nose/Throat/Neck No nasal allergies 03/16/2013 Ears/Nose/Throat/Neck headache 2013 Ears/Nose/Throat/Neck No sore throat Respiratory No productive sputum 2013 Respiratory No chest congestion 2013 Respiratory No cough 03/16/2013 Gastrointestinal No abdominal pain 2013 Gastrointestinal No constipation 2013 Gastrointestinal No diarrhea 03/16/2013 Gastrointestinal No nausea 03/16/2013 Genitourinary/Nephrology No dysuria 03/16 Musculoskeletal No joint complaint 2013 Dermatologic No sores 03/16/2013 Dermatologic No rash 03/16/2013 Neurologic No alteration of consciousness 03/16/2013 Constitutional recent illness 03/09/2013 Constitutional No anorexia 03/09/2013 Constitutional No night sweats 2013 Constitutional No chills 03/09/2013 Constitutional No diaphoresis 03/09/2013 Constitutional No fatigue 03/09/2013 Constitutional No fever 03/09/2013 Constitutional No insomnia 03/09/2013 Constitutional No malaise 03/09/2013 Eyes No eye discharge 03/09/2013 Eyes No eye erythema 03/09/2013 Cardiovascular No chest pain/pressure Respiratory No productive sputum 2013 Respiratory No chest congestion 2013 Respiratory cough 03/09/2013 Gastrointestinal No abdominal pain 2013 Gastrointestinal No constipation 2013 Gastrointestinal No diarrhea 03/09/2013 Gastrointestinal No nausea 03/09/2013 Gastrointestinal No vomiting 03/09/2013 Genitourinary/Nephrology No dysuria 03/09 Musculoskeletal No joint complaint 2013 Constitutional No recent illness 2012 Constitutional No anorexia 12/11/2012 Constitutional No night sweats 2012 Constitutional No chills 12/11/2012 Constitutional No diaphoresis 12/11/2012 Constitutional No fatigue 12/11/2012 Constitutional No fever 12/11/2012 Constitutional No insomnia 12/11/2012 Constitutional No malaise 12/11/2012 Eyes No eye discharge 12/11/2012 Eyes No eye erythema 12/11/2012 Ears/Nose/Throat/Neck No dizziness 2012 Cardiovascular No chest pain/pressure Cardiovascular No dyspnea 12/11/2012 Respiratory No productive sputum 2012 Respiratory No chest congestion 2012 Respiratory cough 12/11/2012 Gastrointestinal No abdominal pain 2012 Gastrointestinal No constipation 2012 Gastrointestinal No diarrhea 12/11/2012 Gastrointestinal No vomiting 12/11/2012 Gastrointestinal No nausea 12/11/2012 Genitourinary/Nephrology No dysuria 12/11 Dermatologic No rash 12/11/2012 Dermatologic No sores 12/11/2012 Constitutional No recent illness 2012 Constitutional No anorexia 11/24/2012 Constitutional No night sweats 2012 Constitutional No chills 11/24/2012 Constitutional No diaphoresis 11/24/2012 Constitutional No fatigue 11/24/2012 Constitutional No fever 11/24/2012 Constitutional No insomnia 11/24/2012 Constitutional No malaise 11/24/2012 Eyes No eye discharge 11/24/2012 Eyes No eye erythema 11/24/2012 Ears/Nose/Throat/Neck No dizziness 2012 Ears/Nose/Throat/Neck No headache 2012 Ears/Nose/Throat/Neck No nasal allergies 11/24/2012 Ears/Nose/Throat/Neck No nasal discharge 11/24/2012 Ears/Nose/Throat/Neck No otalgia 2012 Ears/Nose/Throat/Neck No sinus congestion 11/24/2012 Cardiovascular No chest pain/pressure 09/2012 Gastrointestinal No abdominal pain 2012 Gastrointestinal No constipation 2012 Gastrointestinal No diarrhea 11/24/2012 Gastrointestinal No nausea 11/24/2012 Gastrointestinal No vomiting 11/24/2012 Genitourinary/Nephrology No dysuria 11/24 Musculoskeletal No joint complaint 2012 Dermatologic No rash 11/24/2012 Dermatologic No sores 11/24/2012 Constitutional No recent illness 2012 Constitutional No anorexia 10/13/2012 Constitutional No night sweats 2012 Constitutional No chills 10/13/2012 Constitutional No diaphoresis 10/13/2012 Constitutional No fatigue 10/13/2012 Constitutional No fever 10/13/2012 Constitutional No insomnia 10/13/2012 Constitutional No malaise 10/13/2012 Eyes No eye discharge 10/13/2012 Eyes No eye erythema 10/13/2012 Ears/Nose/Throat/Neck No dizziness 2012 Ears/Nose/Throat/Neck No headache 2012 Ears/Nose/Throat/Neck No nasal allergies 10/13/2012 Ears/Nose/Throat/Neck No nasal discharge 10/13/2012 Ears/Nose/Throat/Neck No otalgia 2012 Ears/Nose/Throat/Neck No sinus congestion 10/13/2012 Cardiovascular No chest pain/pressure Gastrointestinal No abdominal pain 2012 Gastrointestinal No constipation 2012 Gastrointestinal No diarrhea 10/13/2012 Gastrointestinal No nausea 10/13/2012 Gastrointestinal No vomiting 10/13/2012 Genitourinary/Nephrology No dysuria 10/13 Musculoskeletal No joint complaint 2012 Dermatologic No rash 10/13/2012 Dermatologic No sores 10/13/2012 Constitutional No recent illness 2012 Constitutional No night sweats 2012 Constitutional No anorexia 09/17/2012 Constitutional No chills 09/17/2012 Constitutional No diaphoresis 09/17/2012 Constitutional No fatigue 09/17/2012 Constitutional No fever 09/17/2012 Constitutional No insomnia 09/17/2012 Constitutional No malaise 09/17/2012 Eyes No eye erythema 09/17/2012 Eyes No eye discharge 09/17/2012 Ears/Nose/Throat/Neck No headache 2012 Ears/Nose/Throat/Neck No dizziness 2012 Cardiovascular No chest pain/pressure 02/2012 Cardiovascular No dyspnea 09/17/2012 Respiratory No productive sputum 2012 Respiratory No chest congestion 2012 Gastrointestinal No abdominal pain 2012 Gastrointestinal No constipation 2012 Gastrointestinal No diarrhea 09/17/2012 Genitourinary/Nephrology No dysuria 09/17 Musculoskeletal No joint complaint 2012 Dermatologic laceration 09/17/2012 Constitutional No recent illness 2012 Constitutional No anorexia 06/25/2012 Constitutional No night sweats 2012 Constitutional No chills 06/25/2012 Constitutional No diaphoresis 06/25/2012 Constitutional No fatigue 06/25/2012 Constitutional No fever 06/25/2012 Constitutional insomnia 06/25/2012 Constitutional No malaise 06/25/2012 Eyes No eye discharge 06/25/2012 Eyes No eye erythema 06/25/2012 Eyes No vision change 06/25/2012 Ears/Nose/Throat/Neck No dizziness 2012 Ears/Nose/Throat/Neck No headache 2012 Cardiovascular No chest pain/pressure 10/2012 Cardiovascular No dyspnea 06/25/2012 Cardiovascular No edema 06/25/2012 Respiratory No productive sputum 2012 Respiratory No chest congestion 2012 Respiratory cough 06/25/2012 Respiratory dyspnea on exertion 2012 Gastrointestinal No abdominal pain 2012 Gastrointestinal No constipation 2012 Gastrointestinal No diarrhea 06/25/2012 Gastrointestinal No nausea 06/25/2012 Gastrointestinal No vomiting 06/25/2012 Genitourinary/Nephrology No dysuria 06/25 Musculoskeletal No joint complaint 2012 Dermatologic No rash 06/25/2012 Dermatologic No sores 06/25/2012 Neurologic No alteration of consciousness 06/25/2012 Constitutional No recent illness 2012 Constitutional No chills 06/15/2012 Constitutional No fatigue 06/15/2012 Constitutional No fever 06/15/2012 Constitutional No insomnia 06/15/2012 Constitutional No malaise 06/15/2012 Respiratory No chest tightness 2012 Respiratory No cigarette smoking 2012 Respiratory No cough 06/15/2012 Respiratory No dyspnea 06/15/2012 Respiratory No pedal edema 06/15/2012 Respiratory No snoring 06/15/2012 Respiratory No wheezing 06/15/2012 Gastrointestinal No hemorrhoids 2012 Gastrointestinal No abdominal pain 2012 Gastrointestinal No constipation 2012 Gastrointestinal No diarrhea 06/15/2012 Gastrointestinal No gastroesophageal reflux 06/15/2012 Gastrointestinal No melena 06/15/2012 Gastrointestinal No nausea 06/15/2012 Gastrointestinal No vomiting 06/15/2012 Psychiatric No anxiety 06/15/2012 Psychiatric No depression 06/15/2012 Neurologic No headache 06/15/2012 Neurologic No neck pain 06/15/2012 Musculoskeletal No stiffness 06/15/2012 Musculoskeletal No swelling 06/15/2012 Musculoskeletal No muscle weakness 2012 Musculoskeletal No myalgias 06/15/2012 Ears/Nose/Throat/Neck No dental pain Ears/Nose/Throat/Neck No dysphagia 2012 Ears/Nose/Throat/Neck No headache 2012 Ears/Nose/Throat/Neck No hearing loss Ears/Nose/Throat/Neck No nasal allergies 06/15/2012 Ears/Nose/Throat/Neck No sore throat Ears/Nose/Throat/Neck No postnasal drip 06/15/2012 Ears/Nose/Throat/Neck No sinus congestion 06/15/2012 Eyes No blindness 06/15/2012 Eyes No vision change 06/15/2012 Constitutional No recent illness 2012 Dermatologic No rash 05/12/2012 Dermatologic No sores 05/12/2012 Neurologic No alteration of consciousness 05/12/2012 Constitutional No night sweats 2012 Constitutional No anorexia 05/12/2012 Constitutional No chills 05/12/2012 Constitutional No diaphoresis 05/12/2012 Constitutional No fatigue 05/12/2012 Constitutional No fever 05/12/2012 Constitutional insomnia 05/12/2012 Constitutional No malaise 05/12/2012 Eyes No eye discharge 05/12/2012 Eyes No eye erythema 05/12/2012 Eyes No vision change 05/12/2012 Ears/Nose/Throat/Neck No dizziness 2012 Ears/Nose/Throat/Neck No headache 2012 Cardiovascular No chest pain/pressure Cardiovascular No dyspnea 05/12/2012 Cardiovascular No edema 05/12/2012 Respiratory No productive sputum 2012 Respiratory No chest congestion 2012 Respiratory cough 05/12/2012 Respiratory dyspnea on exertion 2012 Gastrointestinal No abdominal pain 2012 Gastrointestinal No constipation 2012 Gastrointestinal No diarrhea 05/12/2012 Gastrointestinal No nausea 05/12/2012 Gastrointestinal No vomiting 05/12/2012 Genitourinary/Nephrology No dysuria 05/12 Musculoskeletal No joint complaint 2012 Constitutional recent illness 02/03/2012 Constitutional No anorexia 02/03/2012 Constitutional No night sweats 2011 Constitutional No chills 02/03/2012 Constitutional No diaphoresis 02/03/2012 Constitutional No fatigue 02/03/2012 Constitutional No fever 02/03/2012 Constitutional No insomnia 02/03/2012 Constitutional No malaise 02/03/2012 Eyes No eye discharge 02/03/2012 Eyes No eye erythema 02/03/2012 Cardiovascular No chest pain/pressure Respiratory No productive sputum 2011 Respiratory No chest congestion 2011 Respiratory cough 02/03/2012 Gastrointestinal No abdominal pain 2011 Gastrointestinal No constipation 2011 Gastrointestinal No diarrhea 02/03/2012 Gastrointestinal No nausea 02/03/2012 Gastrointestinal No vomiting 02/03/2012 Genitourinary/Nephrology No dysuria 02/02 Musculoskeletal No joint complaint 2011 Constitutional recent illness 01/02/2012 Constitutional No anorexia 01/02/2012 Constitutional No night sweats 2011 Constitutional No chills 01/02/2012 Constitutional No diaphoresis 01/02/2012 Constitutional No fatigue 01/02/2012 Constitutional No fever 01/02/2012 Constitutional No insomnia 01/02/2012 Constitutional No malaise 01/02/2012 Eyes No eye discharge 01/02/2012 Eyes No eye erythema 01/02/2012 Cardiovascular No chest pain/pressure Respiratory No productive sputum 2011 Respiratory No chest congestion 2011 Respiratory cough 01/02/2012 Gastrointestinal No abdominal pain 2011 Gastrointestinal No constipation 2011 Gastrointestinal No diarrhea 01/02/2012 Gastrointestinal No nausea 01/02/2012 Gastrointestinal No vomiting 01/02/2012 Genitourinary/Nephrology No dysuria 01/01 Musculoskeletal No joint complaint 2011 Constitutional recent illness 12/02/2011 Constitutional No anorexia 12/02/2011 Constitutional No night sweats 2011 Constitutional No chills 12/02/2011 Constitutional No fever 12/02/2011 Constitutional No fatigue 12/02/2011 Constitutional No diaphoresis 12/02/2011 Constitutional No insomnia 12/02/2011 Constitutional No malaise 12/02/2011 Eyes No eye discharge 12/02/2011 Eyes No eye erythema 12/02/2011 Cardiovascular No chest pain/pressure Respiratory No productive sputum 2011 Respiratory No chest congestion 2011 Respiratory cough 12/02/2011 Gastrointestinal No abdominal pain 2011 Gastrointestinal No constipation 2011 Gastrointestinal No diarrhea 12/02/2011 Gastrointestinal No nausea 12/02/2011 Gastrointestinal No vomiting 12/02/2011 Genitourinary/Nephrology No dysuria 12/01 Musculoskeletal No joint complaint 2011 Constitutional No recent illness 2011 Constitutional No anorexia 11/21/2011 Constitutional No night sweats 2011 Constitutional No chills 11/21/2011 Constitutional No diaphoresis 11/21/2011 Constitutional No fatigue 11/21/2011 Constitutional No fever 11/21/2011 Constitutional No insomnia 11/21/2011 Eyes No vision change 11/21/2011 Gastrointestinal No abdominal pain 2011 Gastrointestinal No constipation 2011 Gastrointestinal No diarrhea 11/21/2011 Gastrointestinal No nausea 11/21/2011 Gastrointestinal No vomiting 11/21/2011 Genitourinary/Nephrology No dysuria 11/20 Dermatologic No rash 11/21/2011 Neurologic No alteration of consciousness 11/21/2011 Psychiatric No anxiety 11/21/2011 Cardiovascular No chest pain/pressure 05/2011 Ears/Nose/Throat/Neck No dizziness 2011 Ears/Nose/Throat/Neck No headache 2011 Ears/Nose/Throat/Neck No nasal discharge 11/21/2011 Musculoskeletal No joint complaint 2011 Constitutional No recent illness 2011 Constitutional No anorexia 10/24/2011 Constitutional No night sweats 2011 Constitutional No chills 10/24/2011 Constitutional No diaphoresis 10/24/2011 Constitutional No fatigue 10/24/2011 Constitutional No fever 10/24/2011 Constitutional No insomnia 10/24/2011 Respiratory No productive sputum 2011 Respiratory No chest congestion 2011 Respiratory No cough 10/24/2011 Respiratory dyspnea on exertion 2011 Gastrointestinal No abdominal pain 2011 Gastrointestinal No constipation 2011 Gastrointestinal No diarrhea 10/24/2011 Gastrointestinal No nausea 10/24/2011 Gastrointestinal No vomiting 10/24/2011 Genitourinary/Nephrology No dysuria 10/23 Dermatologic No rash 10/24/2011 Neurologic No alteration of consciousness 10/24/2011 Psychiatric No anxiety 10/24/2011 Eyes No vision change 10/24/2011 Constitutional No recent illness 2011 Constitutional No anorexia 09/05/2011 Constitutional No night sweats 2011 Constitutional No chills 09/05/2011 Constitutional No diaphoresis 09/05/2011 Constitutional No fatigue 09/05/2011 Constitutional No fever 09/05/2011 Constitutional No insomnia 09/05/2011 Cardiovascular No chest pain/pressure Respiratory No productive sputum 2011 Respiratory No chest congestion 2011 Respiratory No cough 09/05/2011 Respiratory No dyspnea on exertion 2011 Gastrointestinal No abdominal pain 2011 Gastrointestinal No constipation 2011 Gastrointestinal No diarrhea 09/05/2011 Gastrointestinal No nausea 09/05/2011 Gastrointestinal No vomiting 09/05/2011 Genitourinary/Nephrology No dysuria 09/04 Dermatologic No rash 09/05/2011 Neurologic No alteration of consciousness 09/05/2011 Psychiatric No anxiety 09/05/2011 Constitutional No recent illness 2011 Constitutional No anorexia 07/08/2011 Constitutional No night sweats 2011 Constitutional No chills 07/08/2011 Constitutional No diaphoresis 07/08/2011 Constitutional No fatigue 07/08/2011 Constitutional No fever 07/08/2011 Constitutional No insomnia 07/08/2011 Cardiovascular No chest pain/pressure Respiratory No productive sputum 2011 Respiratory No chest congestion 2011 Respiratory No cough 07/08/2011 Respiratory No dyspnea on exertion 2011 Gastrointestinal No abdominal pain 2011 Gastrointestinal No constipation 2011 Gastrointestinal No diarrhea 07/08/2011 Gastrointestinal No nausea 07/08/2011 Gastrointestinal No vomiting 07/08/2011 Genitourinary/Nephrology No dysuria 07/07 Dermatologic No rash 07/08/2011 Neurologic No alteration of consciousness 07/08/2011 Psychiatric No anxiety 07/08/2011 Constitutional No recent illness 2011 Constitutional No anorexia 06/24/2011 Constitutional No night sweats 2011 Constitutional No chills 06/24/2011 Constitutional No diaphoresis 06/24/2011 Constitutional No fatigue 06/24/2011 Constitutional No fever 06/24/2011 Constitutional No insomnia 06/24/2011 Eyes No eye discharge 06/24/2011 Eyes No eye erythema 06/24/2011 Ears/Nose/Throat/Neck No cerumen 2011 Ears/Nose/Throat/Neck No facial swelling 06/24/2011 Ears/Nose/Throat/Neck No hoarseness 06/23 Ears/Nose/Throat/Neck No nasal allergies 06/24/2011 Ears/Nose/Throat/Neck No nasal discharge 06/24/2011 Ears/Nose/Throat/Neck No otalgia 2011 Ears/Nose/Throat/Neck No sinus congestion 06/24/2011 Ears/Nose/Throat/Neck No sore throat 08/2011 Cardiovascular No chest pain/pressure 08/2011 Respiratory No productive sputum 2011 Respiratory No chest congestion 2011 Respiratory No cough 06/24/2011 Respiratory No dyspnea on exertion 2011 Gastrointestinal No abdominal pain 2011 Gastrointestinal No constipation 2011 Gastrointestinal No diarrhea 06/24/2011 Gastrointestinal No nausea 06/24/2011 Gastrointestinal No vomiting 06/24/2011 Genitourinary/Nephrology No dysuria 06/23 Musculoskeletal No joint complaint 2011 Dermatologic No rash 06/24/2011 Neurologic No alteration of consciousness 06/24/2011 Psychiatric No anxiety 06/24/2011 Endocrine thyroid nodule 06/24/2011 Endocrine No weight gain 06/24/2011 Endocrine No dry or coarse skin 2011 Endocrine No cold sensitivity 06/24/2011 Hematologic/Lymphatic No abnormal bleeding and bruising 06/24/2011 Hematologic/Lymphatic lymph node enlargement/mass 06/24/2011 Constitutional No chills 04/23/2011 Constitutional No fatigue 04/23/2011 Constitutional No fever 04/23/2011 Eyes No vision change 04/23/2011 Ears/Nose/Throat/Neck No dizziness 2011 Ears/Nose/Throat/Neck No facial pain 07/2011 Ears/Nose/Throat/Neck No sore throat 07/2011 Cardiovascular No chest pain/pressure 07/2011 Cardiovascular No claudication 2011 Cardiovascular No dyspnea 04/23/2011 Cardiovascular No edema 04/23/2011 Gastrointestinal No abdominal pain 2011 Gastrointestinal No nausea 04/23/2011 Gastrointestinal No vomiting 04/23/2011 Musculoskeletal No swelling 04/23/2011 Musculoskeletal No arthralgia(s) 2011 Musculoskeletal No back pain 04/23/2011 Musculoskeletal No muscle weakness 2011 Dermatologic No rash 04/23/2011 Dermatologic No sores 04/23/2011 Psychiatric No anxiety 04/23/2011 Psychiatric No depression 04/23/2011 Constitutional No chills 10/24/2010 Constitutional No fever 10/24/2010 Constitutional No fatigue 10/24/2010 Ears/Nose/Throat/Neck No dizziness 2010 Ears/Nose/Throat/Neck No facial pain 08/2010 Ears/Nose/Throat/Neck No sore throat 08/2010 Gastrointestinal No vomiting 10/24/2010 Gastrointestinal No nausea 10/24/2010 Gastrointestinal No abdominal pain 2010 Eyes No vision change 10/24/2010 Cardiovascular No chest pain/pressure 08/2010 Cardiovascular No claudication 2010 Cardiovascular No dyspnea 10/24/2010 Cardiovascular No edema 10/24/2010 Musculoskeletal No swelling 10/24/2010 Musculoskeletal No arthralgia(s) 2010 Musculoskeletal No back pain 10/24/2010 Musculoskeletal No muscle weakness 2010 Dermatologic No rash 10/24/2010 Dermatologic No sores 10/24/2010 Psychiatric No anxiety 10/24/2010 Psychiatric No depression 10/24/2010 Physical Exam Exam Name System Name Item Name Status Result Effective Dates Notes Full Exam - General 1994 Constitutional general appearance Development: well developed 01/21/2017 None Full Exam - General 1994 Constitutional general appearance Development: appears stated age 1201/21/2017 None Full Exam - General 1994 Constitutional general appearance Hygiene/Attention to Grooming: poor hygiene 01/21/2017 greasy hair Full Exam - General 1994 Eyes conjunctiva /eyelids Overall: conjunctiva clear 01/21/2017 None Full Exam - General 1994 Eyes conjunctiva /eyelids Overall: cornea clear 01/21/2017 None Full Exam - General 1994 Eyes conjunctiva /eyelids Overall: eyelids normal 01/21/2017 None Full Exam - General 1994 Eyes pupils and irises Overall: pupils equal, round, reactive to light and accomodation 01/21/2017 None Full Exam - General 1994 Ears/Nose/Throat external ear Overall: normal appearance 01/21/2017 None Full Exam - General 1994 Ears/Nose/Throat external ear Overall: no masses 01/21/2017 None Full Exam - General 1994 Ears/Nose/Throat otoscopic exam Overall: external auditory canals clear 01/21/2017 None Full Exam - General 1994 Ears/Nose/Throat otoscopic exam Overall: tympanic membranes clear 01/21/2017 None Full Exam - General 1994 Ears/Nose/Throat lips/teeth/gingiva Overall: benign lips 01/21/2017 None Full Exam - General 1994 Ears/Nose/Throat lips/teeth/gingiva Teeth: missing teeth 01/21/2017 None Full Exam - General 1994 Ears/Nose/Throat oral cavity/pharynx/larynx Overall: oral mucosa clear 01/21/2017 None Full Exam - General 1994 Respiratory auscultation Overall: breath sounds clear bilaterally 01/21/2017 None Full Exam - General 1994 Respiratory respiratory effort/rhythm Overall: no retractions 01/21/2017 None Full Exam - General 1994 Respiratory respiratory effort/rhythm Overall: normal rate 01/21/2017 None Full Exam - General 1994 Cardiovascular auscultation of heart Overall: regular rate 01/21/2017 None Full Exam - General 1994 Cardiovascular auscultation of heart Overall: normal heart sounds 01/21/2017 None Full Exam - General 1994 Abdomen abdominal exam Overall: no tenderness 01/21/2017 None Full Exam - General 1994 Abdomen abdominal exam Overall: normal bowel sounds 01/21/2017 None Full Exam - General 1994 Lymphatic neck nodes Overall: anterior cervical chain benign 01/21/2017 None Full Exam - General 1994 Lymphatic neck nodes Overall: posterior cervical chain benign 01/21/2017 None Full Exam - General 1994 Musculoskeletal gait and station Overall: normal gait 01/21/2017 None Full Exam - General 1994 Musculoskeletal gait and station Overall: normal station 01/21/2017 None Full Exam - General 1994 Psychiatric orientation/consciousness Overall: oriented to person, place and time 01/21/2017 None Full Exam - General 1994 Constitutional general appearance Development: well developed 10/11/2016 None Full Exam - General 1994 Constitutional general appearance Development: appears stated age 0810/11/2016 None Full Exam - General 1994 Constitutional general appearance Hygiene/Attention to Grooming: poor hygiene 10/11/2016 greasy hair Full Exam - General 1994 Eyes conjunctiva /eyelids Overall: conjunctiva clear 10/11/2016 None Full Exam - General 1994 Eyes conjunctiva /eyelids Overall: cornea clear 10/11/2016 None Full Exam - General 1994 Eyes conjunctiva /eyelids Overall: eyelids normal 10/11/2016 None Full Exam - General 1994 Eyes pupils and irises Overall: pupils equal, round, reactive to light and accomodation 10/11/2016 None Full Exam - General 1994 Ears/Nose/Throat external ear Overall: normal appearance 10/11/2016 None Full Exam - General 1994 Ears/Nose/Throat external ear Overall: no masses 10/11/2016 None Full Exam - General 1994 Ears/Nose/Throat otoscopic exam Overall: external auditory canals clear 10/11/2016 None Full Exam - General 1994 Ears/Nose/Throat otoscopic exam Overall: tympanic membranes clear 10/11/2016 None Full Exam - General 1994 Ears/Nose/Throat lips/teeth/gingiva Overall: benign lips 10/11/2016 None Full Exam - General 1994 Ears/Nose/Throat lips/teeth/gingiva Teeth: missing teeth 10/11/2016 None Full Exam - General 1994 Ears/Nose/Throat oral cavity/pharynx/larynx Overall: oral mucosa clear 10/11/2016 None Full Exam - General 1994 Respiratory auscultation Overall: breath sounds clear bilaterally 10/11/2016 None Full Exam - General 1994 Respiratory respiratory effort/rhythm Overall: no retractions 10/11/2016 None Full Exam - General 1994 Respiratory respiratory effort/rhythm Overall: normal rate 10/11/2016 None Full Exam - General 1994 Cardiovascular auscultation of heart Overall: regular rate 10/11/2016 None Full Exam - General 1994 Cardiovascular auscultation of heart Overall: normal heart sounds 10/11/2016 None Full Exam - General 1994 Abdomen abdominal exam Overall: no tenderness 10/11/2016 None Full Exam - General 1994 Abdomen abdominal exam Overall: normal bowel sounds 10/11/2016 None Full Exam - General 1994 Abdomen abdominal exam Contour: rounded 10/11/2016 None Full Exam - General 1994 Abdomen abdominal exam Bowel sounds: hypoactive 10/11/2016 None Full Exam - General 1994 Lymphatic neck nodes Overall: anterior cervical chain benign 10/11/2016 None Full Exam - General 1994 Lymphatic neck nodes Overall: posterior cervical chain benign 10/11/2016 None Full Exam - General 1994 Musculoskeletal gait and station Overall: normal gait 10/11/2016 None Full Exam - General 1994 Musculoskeletal gait and station Overall: normal station 10/11/2016 None Full Exam - General 1994 Psychiatric orientation/consciousness Overall: oriented to person, place and time 10/11/2016 None Full Exam - General 1994 Constitutional general appearance Development: well developed 08/09/2016 None Full Exam - General 1994 Constitutional general appearance Development: appears stated age 0608/09/2016 None Full Exam - General 1994 Constitutional general appearance Hygiene/Attention to Grooming: poor hygiene 08/09/2016 greasy hair Full Exam - General 1994 Eyes conjunctiva /eyelids Overall: conjunctiva clear 08/09/2016 None Full Exam - General 1994 Eyes conjunctiva /eyelids Overall: cornea clear 08/09/2016 None Full Exam - General 1994 Eyes conjunctiva /eyelids Overall: eyelids normal 08/09/2016 None Full Exam - General 1994 Eyes pupils and irises Overall: pupils equal, round, reactive to light and accomodation 08/09/2016 None Full Exam - General 1994 Ears/Nose/Throat external ear Overall: normal appearance 08/09/2016 None Full Exam - General 1994 Ears/Nose/Throat external ear Overall: no masses 08/09/2016 None Full Exam - General 1994 Ears/Nose/Throat otoscopic exam Overall: external auditory canals clear 08/09/2016 None Full Exam - General 1994 Ears/Nose/Throat otoscopic exam Overall: tympanic membranes clear 08/09/2016 None Full Exam - General 1994 Ears/Nose/Throat lips/teeth/gingiva Overall: benign lips 08/09/2016 None Full Exam - General 1994 Ears/Nose/Throat lips/teeth/gingiva Teeth: missing teeth 08/09/2016 None Full Exam - General 1994 Ears/Nose/Throat oral cavity/pharynx/larynx Overall: oral mucosa clear 08/09/2016 None Full Exam - General 1994 Neck inspection of neck Appearance: surgical scarring 08/09/2016 healing surgical incision Full Exam - General 1994 Respiratory auscultation Overall: breath sounds clear bilaterally 08/09/2016 None Full Exam - General 1994 Respiratory respiratory effort/rhythm Overall: no retractions 08/09/2016 None Full Exam - General 1994 Respiratory respiratory effort/rhythm Overall: normal rate 08/09/2016 None Full Exam - General 1994 Cardiovascular auscultation of heart Overall: regular rate 08/09/2016 None Full Exam - General 1994 Cardiovascular auscultation of heart Overall: normal heart sounds 08/09/2016 None Full Exam - General 1994 Abdomen abdominal exam Overall: no tenderness 08/09/2016 None Full Exam - General 1994 Abdomen abdominal exam Overall: normal bowel sounds 08/09/2016 None Full Exam - General 1994 Abdomen abdominal exam Contour: rounded 08/09/2016 None Full Exam - General 1994 Abdomen abdominal exam Bowel sounds: hypoactive 08/09/2016 None Full Exam - General 1994 Lymphatic neck nodes Overall: anterior cervical chain benign 08/09/2016 None Full Exam - General 1994 Lymphatic neck nodes Overall: posterior cervical chain benign 08/09/2016 None Full Exam - General 1994 Musculoskeletal gait and station Overall: normal gait 08/09/2016 None Full Exam - General 1994 Musculoskeletal gait and station Overall: normal station 08/09/2016 None Full Exam - General 1994 Psychiatric orientation/consciousness Overall: oriented to person, place and time 08/09/2016 None Full Exam - General 1994 Constitutional general appearance Development: well developed 07/11/2016 None Full Exam - General 1994 Constitutional general appearance Development: appears stated age 0507/11/2016 None Full Exam - General 1994 Constitutional general appearance Hygiene/Attention to Grooming: poor hygiene 07/11/2016 greasy hair Full Exam - General 1994 Eyes conjunctiva /eyelids Overall: conjunctiva clear 07/11/2016 None Full Exam - General 1994 Eyes conjunctiva /eyelids Overall: cornea clear 07/11/2016 None Full Exam - General 1994 Eyes conjunctiva /eyelids Overall: eyelids normal 07/11/2016 None Full Exam - General 1994 Eyes pupils and irises Overall: pupils equal, round, reactive to light and accomodation 07/11/2016 None Full Exam - General 1994 Ears/Nose/Throat external ear Overall: normal appearance 07/11/2016 None Full Exam - General 1994 Ears/Nose/Throat external ear Overall: no masses 07/11/2016 None Full Exam - General 1994 Ears/Nose/Throat otoscopic exam Overall: external auditory canals clear 07/11/2016 None Full Exam - General 1994 Ears/Nose/Throat otoscopic exam Overall: tympanic membranes clear 07/11/2016 None Full Exam - General 1994 Ears/Nose/Throat lips/teeth/gingiva Overall: benign lips 07/11/2016 None Full Exam - General 1994 Ears/Nose/Throat lips/teeth/gingiva Teeth: missing teeth 07/11/2016 None Full Exam - General 1994 Ears/Nose/Throat oral cavity/pharynx/larynx Overall: oral mucosa clear 07/11/2016 None Full Exam - General 1994 Neck inspection of neck Appearance: surgical scarring 07/11/2016 healing surgical incision Full Exam - General 1994 Respiratory auscultation Overall: breath sounds clear bilaterally 07/11/2016 None Full Exam - General 1994 Respiratory respiratory effort/rhythm Overall: no retractions 07/11/2016 None Full Exam - General 1994 Respiratory respiratory effort/rhythm Overall: normal rate 07/11/2016 None Full Exam - General 1994 Cardiovascular auscultation of heart Overall: regular rate 07/11/2016 None Full Exam - General 1994 Cardiovascular auscultation of heart Overall: normal heart sounds 07/11/2016 None Full Exam - General 1994 Abdomen abdominal exam Overall: no tenderness 07/11/2016 None Full Exam - General 1994 Abdomen abdominal exam Overall: normal bowel sounds 07/11/2016 None Full Exam - General 1994 Abdomen abdominal exam Contour: rounded 07/11/2016 None Full Exam - General 1994 Abdomen abdominal exam Bowel sounds: hypoactive 07/11/2016 None Full Exam - General 1994 Lymphatic neck nodes Overall: anterior cervical chain benign 07/11/2016 None Full Exam - General 1994 Lymphatic neck nodes Overall: posterior cervical chain benign 07/11/2016 None Full Exam - General 1994 Musculoskeletal gait and station Overall: normal gait 07/11/2016 None Full Exam - General 1994 Musculoskeletal gait and station Overall: normal station 07/11/2016 None Full Exam - General 1994 Psychiatric orientation/consciousness Overall: oriented to person, place and time 07/11/2016 None Full Exam - General 1994 Constitutional general appearance Development: well developed 07/01/2016 None Full Exam - General 1994 Constitutional general appearance Development: appears stated age 0507/01/2016 None Full Exam - General 1994 Constitutional general appearance Hygiene/Attention to Grooming: poor hygiene 07/01/2016 greasy hair Full Exam - General 1994 Eyes conjunctiva /eyelids Overall: conjunctiva clear 07/01/2016 None Full Exam - General 1994 Eyes conjunctiva /eyelids Overall: cornea clear 07/01/2016 None Full Exam - General 1994 Eyes conjunctiva /eyelids Overall: eyelids normal 07/01/2016 None Full Exam - General 1994 Eyes pupils and irises Overall: pupils equal, round, reactive to light and accomodation 07/01/2016 None Full Exam - General 1994 Ears/Nose/Throat external ear Overall: normal appearance 07/01/2016 None Full Exam - General 1994 Ears/Nose/Throat external ear Overall: no masses 07/01/2016 None Full Exam - General 1994 Ears/Nose/Throat otoscopic exam Overall: external auditory canals clear 07/01/2016 None Full Exam - General 1994 Ears/Nose/Throat otoscopic exam Overall: tympanic membranes clear 07/01/2016 None Full Exam - General 1994 Ears/Nose/Throat lips/teeth/gingiva Overall: benign lips 07/01/2016 None Full Exam - General 1994 Ears/Nose/Throat lips/teeth/gingiva Teeth: missing teeth 07/01/2016 None Full Exam - General 1994 Ears/Nose/Throat oral cavity/pharynx/larynx Overall: oral mucosa clear 07/01/2016 None Full Exam - General 1994 Respiratory auscultation Overall: breath sounds clear bilaterally 07/01/2016 None Full Exam - General 1994 Respiratory respiratory effort/rhythm Overall: no retractions 07/01/2016 None Full Exam - General 1994 Respiratory respiratory effort/rhythm Overall: normal rate 07/01/2016 None Full Exam - General 1994 Cardiovascular auscultation of heart Overall: regular rate 07/01/2016 None Full Exam - General 1994 Cardiovascular auscultation of heart Overall: normal heart sounds 07/01/2016 None Full Exam - General 1994 Abdomen abdominal exam Overall: no tenderness 07/01/2016 None Full Exam - General 1994 Abdomen abdominal exam Overall: normal bowel sounds 07/01/2016 None Full Exam - General 1994 Abdomen abdominal exam Contour: rounded 07/01/2016 None Full Exam - General 1994 Abdomen abdominal exam Bowel sounds: hypoactive 07/01/2016 None Full Exam - General 1994 Lymphatic neck nodes Overall: anterior cervical chain benign 07/01/2016 None Full Exam - General 1994 Lymphatic neck nodes Overall: posterior cervical chain benign 07/01/2016 None Full Exam - General 1994 Musculoskeletal gait and station Overall: normal gait 07/01/2016 None Full Exam - General 1994 Musculoskeletal gait and station Overall: normal station 07/01/2016 None Full Exam - General 1994 Psychiatric orientation/consciousness Overall: oriented to person, place and time 07/01/2016 None Full Exam - General 1994 Neck inspection of neck Appearance: surgical scarring 07/01/2016 healing surgical incision Full Exam - General 1994 Constitutional general appearance Development: well developed 06/03/2016 None Full Exam - General 1994 Constitutional general appearance Development: appears stated age 0406/03/2016 None Full Exam - General 1994 Constitutional general appearance Hygiene/Attention to Grooming: poor hygiene 06/03/2016 greasy hair Full Exam - General 1994 Eyes conjunctiva /eyelids Overall: conjunctiva clear 06/03/2016 None Full Exam - General 1994 Eyes conjunctiva /eyelids Overall: cornea clear 06/03/2016 None Full Exam - General 1994 Eyes conjunctiva /eyelids Overall: eyelids normal 06/03/2016 None Full Exam - General 1994 Eyes pupils and irises Overall: pupils equal, round, reactive to light and accomodation 06/03/2016 None Full Exam - General 1994 Ears/Nose/Throat external ear Overall: normal appearance 06/03/2016 None Full Exam - General 1994 Ears/Nose/Throat external ear Overall: no masses 06/03/2016 None Full Exam - General 1994 Ears/Nose/Throat otoscopic exam Overall: external auditory canals clear 06/03/2016 None Full Exam - General 1994 Ears/Nose/Throat otoscopic exam Overall: tympanic membranes clear 06/03/2016 None Full Exam - General 1994 Ears/Nose/Throat lips/teeth/gingiva Overall: benign lips 06/03/2016 None Full Exam - General 1994 Ears/Nose/Throat lips/teeth/gingiva Teeth: missing teeth 06/03/2016 None Full Exam - General 1994 Ears/Nose/Throat oral cavity/pharynx/larynx Overall: oral mucosa clear 06/03/2016 None Full Exam - General 1994 Neck thyroid Overall: normal size None Full Exam - General 1994 Neck thyroid Overall: normal consistency 06/03/2016 None Full Exam - General 1994 Respiratory auscultation Overall: breath sounds clear bilaterally 06/03/2016 None Full Exam - General 1994 Respiratory respiratory effort/rhythm Overall: no retractions 06/03/2016 None Full Exam - General 1994 Respiratory respiratory effort/rhythm Overall: normal rate 06/03/2016 None Full Exam - General 1994 Cardiovascular auscultation of heart Overall: regular rate 06/03/2016 None Full Exam - General 1994 Cardiovascular auscultation of heart Overall: normal heart sounds 06/03/2016 None Full Exam - General 1994 Abdomen abdominal exam Overall: no tenderness 06/03/2016 None Full Exam - General 1994 Abdomen abdominal exam Overall: normal bowel sounds 06/03/2016 None Full Exam - General 1994 Abdomen abdominal exam Contour: rounded 06/03/2016 None Full Exam - General 1994 Abdomen abdominal exam Bowel sounds: hypoactive 06/03/2016 None Full Exam - General 1994 Lymphatic neck nodes Overall: anterior cervical chain benign 06/03/2016 None Full Exam - General 1994 Lymphatic neck nodes Overall: posterior cervical chain benign 06/03/2016 None Full Exam - General 1994 Musculoskeletal gait and station Overall: normal gait 06/03/2016 None Full Exam - General 1994 Musculoskeletal gait and station Overall: normal station 06/03/2016 None Full Exam - General 1994 Psychiatric orientation/consciousness Overall: oriented to person, place and time 06/03/2016 None Full Exam - General 1994 Constitutional general appearance Development: well developed 05/20/2016 None Full Exam - General 1994 Constitutional general appearance Development: appears stated age 0405/20/2016 None Full Exam - General 1994 Eyes conjunctiva /eyelids Overall: conjunctiva clear 05/20/2016 None Full Exam - General 1994 Eyes conjunctiva /eyelids Overall: cornea clear 05/20/2016 None Full Exam - General 1994 Eyes conjunctiva /eyelids Overall: eyelids normal 05/20/2016 None Full Exam - General 1994 Eyes pupils and irises Overall: pupils equal, round, reactive to light and accomodation 05/20/2016 None Full Exam - General 1994 Ears/Nose/Throat external ear Overall: normal appearance 05/20/2016 None Full Exam - General 1994 Ears/Nose/Throat external ear Overall: no masses 05/20/2016 None Full Exam - General 1994 Ears/Nose/Throat otoscopic exam Overall: external auditory canals clear 05/20/2016 None Full Exam - General 1994 Ears/Nose/Throat otoscopic exam Overall: tympanic membranes clear 05/20/2016 None Full Exam - General 1994 Ears/Nose/Throat lips/teeth/gingiva Overall: benign lips 05/20/2016 None Full Exam - General 1994 Ears/Nose/Throat oral cavity/pharynx/larynx Overall: oral mucosa clear 05/20/2016 None Full Exam - General 1994 Neck thyroid Overall: normal size 04/2016 None Full Exam - General 1994 Neck thyroid Overall: normal consistency 05/20/2016 None Full Exam - General 1994 Respiratory auscultation Overall: breath sounds clear bilaterally 05/20/2016 None Full Exam - General 1994 Respiratory respiratory effort/rhythm Overall: no retractions 05/20/2016 None Full Exam - General 1994 Respiratory respiratory effort/rhythm Overall: normal rate 05/20/2016 None Full Exam - General 1994 Cardiovascular auscultation of heart Overall: regular rate 05/20/2016 None Full Exam - General 1994 Cardiovascular auscultation of heart Overall: normal heart sounds 05/20/2016 None Full Exam - General 1994 Abdomen abdominal exam Overall: no tenderness 05/20/2016 None Full Exam - General 1994 Abdomen abdominal exam Overall: normal bowel sounds 05/20/2016 None Full Exam - General 1994 Lymphatic neck nodes Overall: anterior cervical chain benign 05/20/2016 None Full Exam - General 1994 Lymphatic neck nodes Overall: posterior cervical chain benign 05/20/2016 None Full Exam - General 1994 Musculoskeletal gait and station Overall: normal gait 05/20/2016 None Full Exam - General 1994 Musculoskeletal gait and station Overall: normal station 05/20/2016 None Full Exam - General 1994 Constitutional general appearance Hygiene/Attention to Grooming: poor hygiene 05/20/2016 greasy hair Full Exam - General 1994 Ears/Nose/Throat lips/teeth/gingiva Teeth: missing teeth 05/20/2016 None Full Exam - General 1994 Abdomen abdominal exam Contour: rounded 05/20/2016 None Full Exam - General 1994 Abdomen abdominal exam Bowel sounds: hypoactive 05/20/2016 None Full Exam - General 1994 Psychiatric orientation/consciousness Overall: oriented to person, place and time 05/20/2016 None Full Exam - General 1994 Constitutional general appearance Development: well developed 05/07/2016 None Full Exam - General 1994 Constitutional general appearance Development: appears stated age 0305/07/2016 None Full Exam - General 1994 Eyes conjunctiva /eyelids Overall: conjunctiva clear 05/07/2016 None Full Exam - General 1994 Eyes conjunctiva /eyelids Overall: cornea clear 05/07/2016 None Full Exam - General 1994 Eyes conjunctiva /eyelids Overall: eyelids normal 05/07/2016 None Full Exam - General 1994 Eyes pupils and irises Overall: pupils equal, round, reactive to light and accomodation 05/07/2016 None Full Exam - General 1994 Ears/Nose/Throat lips/teeth/gingiva Overall: benign lips 05/07/2016 None Full Exam - General 1994 Ears/Nose/Throat lips/teeth/gingiva Teeth: missing teeth 05/07/2016 None Full Exam - General 1994 Ears/Nose/Throat oral cavity/pharynx/larynx Overall: oral mucosa clear 05/07/2016 None Full Exam - General 1994 Neck inspection of neck Overall: normal size 05/07/2016 None Full Exam - General 1994 Neck inspection of neck Overall: normal appearance 05/07/2016 None Full Exam - General 1994 Neck inspection of neck Overall: no masses 05/07/2016 None Full Exam - General 1994 Respiratory auscultation Overall: breath sounds clear bilaterally 05/07/2016 None Full Exam - General 1994 Respiratory respiratory effort/rhythm Overall: no retractions 05/07/2016 None Full Exam - General 1994 Respiratory respiratory effort/rhythm Overall: normal rate 05/07/2016 None Full Exam - General 1994 Cardiovascular auscultation of heart Overall: regular rate 05/07/2016 None Full Exam - General 1994 Cardiovascular auscultation of heart Overall: normal heart sounds 05/07/2016 None Full Exam - General 1994 Cardiovascular auscultation of heart Overall: no murmurs 05/07/2016 None Full Exam - General 1994 Abdomen abdominal exam Overall: no tenderness 05/07/2016 None Full Exam - General 1994 Abdomen abdominal exam Contour: rounded 05/07/2016 None Full Exam - General 1994 Abdomen abdominal exam Bowel sounds: hypoactive 05/07/2016 None Full Exam - General 1994 Lymphatic neck nodes Overall: anterior cervical chain benign 05/07/2016 None Full Exam - General 1994 Lymphatic neck nodes Overall: posterior cervical chain benign 05/07/2016 None Full Exam - General 1994 Musculoskeletal gait and station Overall: normal gait 05/07/2016 None Full Exam - General 1994 Musculoskeletal gait and station Overall: normal station 05/07/2016 None Full Exam - General 1994 Musculoskeletal head and neck Overall: head atraumatic 05/07/2016 None Full Exam - General 1994 Musculoskeletal head and neck Overall: TMJ benign 05/07/2016 None Full Exam - General 1994 Musculoskeletal head and neck Overall: cervical spine benign 05/07/2016 None Full Exam - General 1994 Neurologic mental status Overall: alert 05/07/2016 None Full Exam - General 1994 Neurologic mental status Overall: oriented 05/07/2016 None Full Exam - General 1994 Neurologic motor Overall: normal bulk, tone 05/07/2016 None Full Exam - General 1994 Psychiatric orientation/consciousness Overall: oriented to person, place and time 05/07/2016 None Full Exam - General 1994 Psychiatric mood and affect Overall: normal mood and affect 05/07/2016 None Full Exam - General 1994 Psychiatric speech Overall: normal quality, no aphasia 05/07/2016 None Full Exam - General 1994 Psychiatric thought Overall: normal form and content 05/07/2016 None Full Exam - General 1994 Psychiatric judgment/insight Overall: judgment and insight intact 05/07/2016 None Full Exam - General 1994 Constitutional general appearance Hygiene/Attention to Grooming: poor hygiene 05/07/2016 greasy hair Full Exam - General 1994 Ears/Nose/Throat otoscopic exam External auditory canal: partial cerumen occlusion 05/07/2016 None Full Exam - General 1994 Ears/Nose/Throat otoscopic exam Tympanic membrane: not visualized 05/07/2016 None Full Exam - General 1994 Constitutional general appearance Overall: well developed 04/23/2016 None Full Exam - General 1994 Constitutional general appearance Overall: in no acute distress 04/23/2016 None Full Exam - General 1994 Constitutional general appearance Overall: well nourished 04/23/2016 None Full Exam - General 1994 Constitutional general appearance Hygiene/Attention to Grooming: poor hygiene 04/23/2016 flakey, greasy appearing hair Full Exam - General 1994 Eyes pupils and irises Overall: pupils equal, round, reactive to light and accomodation 04/23/2016 None Full Exam - General 1994 Ears/Nose/Throat otoscopic exam Overall: external auditory canals clear 04/23/2016 None Full Exam - General 1994 Ears/Nose/Throat otoscopic exam Overall: tympanic membranes clear 04/23/2016 None Full Exam - General 1994 Ears/Nose/Throat oral cavity/pharynx/larynx Overall: oral mucosa clear 04/23/2016 None Full Exam - General 1994 Ears/Nose/Throat oral cavity/pharynx/larynx Overall: oropharyngeal mucosa clear 04/23/2016 None Full Exam - General 1994 Ears/Nose/Throat oral cavity/pharynx/larynx Overall: no masses 04/23/2016 None Full Exam - General 1994 Respiratory auscultation Overall: breath sounds clear bilaterally 04/23/2016 None Full Exam - General 1994 Respiratory respiratory effort/rhythm Overall: no retractions 04/23/2016 None Full Exam - General 1994 Respiratory respiratory effort/rhythm Overall: normal rate 04/23/2016 None Full Exam - General 1994 Cardiovascular auscultation of heart Overall: regular rate 04/23/2016 None Full Exam - General 1994 Cardiovascular auscultation of heart Overall: normal heart sounds 04/23/2016 None Full Exam - General 1994 Cardiovascular auscultation of heart Overall: no murmurs 04/23/2016 None Full Exam - General 1994 Abdomen abdominal exam Overall: no tenderness 04/23/2016 None Full Exam - General 1994 Musculoskeletal digits and nails Overall: no clubbing 04/23/2016 None Full Exam - General 1994 Musculoskeletal digits and nails Overall: digits benign 04/23/2016 None Full Exam - General 1994 Musculoskeletal spine, ribs and pelvis Overall: ribs benign 04/23/2016 None Full Exam - General 1994 Musculoskeletal spine, ribs and pelvis Posture: lordosis 04/23/2016 None Full Exam - General 1994 Musculoskeletal head and neck Overall: head atraumatic 04/23/2016 None Full Exam - General 1994 Musculoskeletal head and neck Overall: cervical spine benign 04/23/2016 None Full Exam - General 1994 Neurologic gait Overall: no ataxia, no unsteadiness 04/23/2016 None Full Exam - General 1994 Psychiatric orientation/consciousness Overall: oriented to person, place and time 04/23/2016 None Full Exam - General 1994 Psychiatric mood and affect Overall: normal mood and affect 04/23/2016 None Full Exam - General 1994 Psychiatric mood and affect Mood: happy 04/23/2016 None Full Exam - General 1994 Constitutional general appearance Nourishment: thin 04/23/2016 ill appearing Full Exam - General 1994 Integument inspection of skin Overall: few scattered moles, no gross abnormalities 04/23/2016 pale Full Exam - General 1994 Abdomen abdominal exam Contour: rounded 04/23/2016 None Full Exam - General 1994 Respiratory auscultation Basilar: diminished 04/23/2016 None Full Exam - Genitourinary/Male Constitutional general appearance Overall: in no acute distress 04/22/2016 None Full Exam - Genitourinary/Male Eyes conjunctiva/eyelids Overall: conjunctiva clear 04/22/2016 None Full Exam - Genitourinary/Male Ears/Nose/Throat lips/teeth/gingiva Overall: benign lips 04/22/2016 None Full Exam - Genitourinary/Male Respiratory respiratory effort/rhythm Overall: no retractions 04/22/2016 None Full Exam - Genitourinary/Male Respiratory respiratory effort/rhythm Overall: normal rate 04/22/2016 None Full Exam - Genitourinary/Male Genitourinary urethral meatus Overall: no lesions, discharge 04/22/[address] - 10mL saline removed from balloon and catheter removed. Pt tolerated procedure well. Full Exam - Genitourinary/Male Neurologic mood and affect Overall: normal mood 04/22/2016 None Full Exam - Genitourinary/Male Neurologic mood and affect Overall: normal affect 04/22/2016 None Full Exam - Genitourinary/Male Neurologic orientation Overall: oriented to person , place and time 04/22/2016 None Full Exam - Genitourinary/Male Psychiatric orientation/consciousness Overall: oriented to person, place and time 04/22/2016 None Full Exam - General 1994 Constitutional general appearance Development: well developed 04/08/2016 None Full Exam - General 1994 Constitutional general appearance Development: appears stated age 0204/08/2016 None Full Exam - General 1994 Eyes conjunctiva /eyelids Overall: conjunctiva clear 04/08/2016 None Full Exam - General 1994 Eyes conjunctiva /eyelids Overall: cornea clear 04/08/2016 None Full Exam - General 1994 Eyes conjunctiva /eyelids Overall: eyelids normal 04/08/2016 None Full Exam - General 1994 Eyes pupils and irises Overall: pupils equal, round, reactive to light and accomodation 04/08/2016 None Full Exam - General 1994 Ears/Nose/Throat otoscopic exam External auditory canal: erythematous 04/08/2016 None Full Exam - General 1994 Ears/Nose/Throat otoscopic exam Overall: tympanic membranes clear 04/08/2016 None Full Exam - General 1994 Ears/Nose/Throat lips/teeth/gingiva Teeth: missing teeth 04/08/2016 None Full Exam - General 1994 Ears/Nose/Throat lips/teeth/gingiva Overall: benign lips 04/08/2016 None Full Exam - General 1994 Ears/Nose/Throat oral cavity/pharynx/larynx Overall: oral mucosa clear 04/08/2016 None Full Exam - General 1994 Neck inspection of neck Overall: normal size 04/08/2016 None Full Exam - General 1994 Neck inspection of neck Overall: normal appearance 04/08/2016 None Full Exam - General 1994 Neck inspection of neck Overall: no masses 04/08/2016 None Full Exam - General 1994 Respiratory respiratory effort/rhythm Overall: no retractions 04/08/2016 None Full Exam - General 1994 Respiratory respiratory effort/rhythm Overall: normal rate 04/08/2016 None Full Exam - General 1994 Respiratory auscultation Overall: breath sounds clear bilaterally 04/08/2016 None Full Exam - General 1994 Cardiovascular auscultation of heart Overall: regular rate 04/08/2016 None Full Exam - General 1994 Cardiovascular auscultation of heart Overall: normal heart sounds 04/08/2016 None Full Exam - General 1994 Cardiovascular auscultation of heart Overall: no murmurs 04/08/2016 None Full Exam - General 1994 Abdomen abdominal exam Overall: no tenderness 04/08/2016 None Full Exam - General 1994 Abdomen abdominal exam Bowel sounds: hypoactive 04/08/2016 None Full Exam - General 1994 Abdomen abdominal exam Contour: rounded 04/08/2016 None Full Exam - General 1994 Lymphatic neck nodes Overall: anterior cervical chain benign 04/08/2016 None Full Exam - General 1994 Lymphatic neck nodes Overall: posterior cervical chain benign 04/08/2016 None Full Exam - General 1994 Musculoskeletal head and neck Overall: head atraumatic 04/08/2016 None Full Exam - General 1994 Musculoskeletal head and neck Overall: TMJ benign 04/08/2016 None Full Exam - General 1994 Musculoskeletal head and neck Overall: cervical spine benign 04/08/2016 None Full Exam - General 1994 Musculoskeletal gait and station Overall: normal gait 04/08/2016 None Full Exam - General 1994 Musculoskeletal gait and station Overall: normal station 04/08/2016 None Full Exam - General 1994 Neurologic mental status Overall: alert 04/08/2016 None Full Exam - General 1994 Neurologic mental status Overall: oriented 04/08/2016 None Full Exam - General 1994 Neurologic motor Overall: normal bulk, tone 04/08/2016 None Full Exam - General 1994 Psychiatric orientation/consciousness Overall: oriented to person, place and time 04/08/2016 None Full Exam - General 1994 Psychiatric mood and affect Overall: normal mood and affect 04/08/2016 None Full Exam - General 1994 Psychiatric speech Overall: normal quality, no aphasia 04/08/2016 None Full Exam - General 1994 Psychiatric thought Overall: normal form and content 04/08/2016 None Full Exam - General 1994 Psychiatric judgment/insight Overall: judgment and insight intact 04/08/2016 None Full Exam - General 1994 Constitutional general appearance Overall: well developed 03/08/2016 None Full Exam - General 1994 Constitutional general appearance Overall: in no acute distress 03/08/2016 None Full Exam - General 1994 Constitutional general appearance Overall: well nourished 03/08/2016 None Full Exam - General 1994 Eyes conjunctiva /eyelids Overall: conjunctiva clear 03/08/2016 None Full Exam - General 1994 Eyes pupils and irises Overall: pupils equal, round, reactive to light and accomodation 03/08/2016 None Full Exam - General 1995 Ears/Nose/Throat otoscopic exam External auditory canal: partial cerumen occlusion 03/08/2016 None Full Exam - General 1994 Ears/Nose/Throat lips/teeth/gingiva Overall: benign lips 03/08/2016 None Full Exam - General 1994 Ears/Nose/Throat oral cavity/pharynx/larynx Overall: oral mucosa clear 03/08/2016 None Full Exam - General 1994 Respiratory auscultation Overall: breath sounds clear bilaterally 03/08/2016 None Full Exam - General 1994 Respiratory respiratory effort/rhythm Overall: no retractions 03/08/2016 None Full Exam - General 1994 Respiratory respiratory effort/rhythm Overall: normal rate 03/08/2016 None Full Exam - General 1994 Cardiovascular auscultation of heart Overall: regular rate 03/08/2016 None Full Exam - General 1994 Cardiovascular auscultation of heart Overall: normal heart sounds 03/08/2016 None Full Exam - General 1994 Musculoskeletal spine, ribs and pelvis Posture: lordosis 03/08/2016 None Full Exam - General 1994 Musculoskeletal head and neck Overall: head atraumatic 03/08/2016 None Full Exam - General 1994 Neurologic gait Overall: no ataxia, no unsteadiness 03/08/2016 None Full Exam - General 1994 Neurologic coordination Overall: no tremors 03/08/2016 None Full Exam - General 1994 Psychiatric orientation/consciousness Overall: oriented to person, place and time 03/08/2016 None Full Exam - General 1994 Psychiatric mood and affect Overall: normal mood and affect 03/08/2016 None Full Exam - General 1994 Psychiatric mood and affect Mood: flat 03/08/2016 None Full Exam - General 1994 Constitutional general appearance Overall: well developed 12/08/2015 None Full Exam - General 1994 Constitutional general appearance Overall: in no acute distress 12/08/2015 None Full Exam - General 1994 Constitutional general appearance Overall: well nourished 12/08/2015 None Full Exam - General 1994 Eyes conjunctiva /eyelids Overall: conjunctiva clear 12/08/2015 None Full Exam - General 1994 Eyes pupils and irises Overall: pupils equal, round, reactive to light and accomodation 12/08/2015 None Full Exam - General 1994 Ears/Nose/Throat otoscopic exam External auditory canal: partial cerumen occlusion 12/08/2015 None Full Exam - General 1994 Ears/Nose/Throat lips/teeth/gingiva Overall: benign lips 12/08/2015 None Full Exam - General 1994 Ears/Nose/Throat oral cavity/pharynx/larynx Overall: oral mucosa clear 12/08/2015 None Full Exam - General 1994 Respiratory auscultation Overall: breath sounds clear bilaterally 12/08/2015 None Full Exam - General 1994 Respiratory respiratory effort/rhythm Overall: no retractions 12/08/2015 None Full Exam - General 1994 Respiratory respiratory effort/rhythm Overall: normal rate 12/08/2015 None Full Exam - General 1994 Cardiovascular auscultation of heart Overall: regular rate 12/08/2015 None Full Exam - General 1994 Cardiovascular auscultation of heart Overall: normal heart sounds 12/08/2015 None Full Exam - General 1994 Musculoskeletal spine, ribs and pelvis Posture: lordosis 12/08/2015 None Full Exam - General 1994 Musculoskeletal head and neck Overall: head atraumatic 12/08/2015 None Full Exam - General 1994 Neurologic gait Overall: no ataxia, no unsteadiness 12/08/2015 None Full Exam - General 1994 Neurologic coordination Overall: no tremors 12/08/2015 None Full Exam - General 1994 Psychiatric orientation/consciousness Overall: oriented to person, place and time 12/08/2015 None Full Exam - General 1994 Psychiatric mood and affect Overall: normal mood and affect 12/08/2015 None Full Exam - General 1994 Psychiatric mood and affect Mood: flat 12/08/2015 None Full Exam - General 1994 Constitutional general appearance Overall: well developed 11/13/2015 None Full Exam - General 1994 Constitutional general appearance Overall: in no acute distress 11/13/2015 None Full Exam - General 1994 Constitutional general appearance Overall: well nourished 11/13/2015 None Full Exam - General 1994 Eyes conjunctiva /eyelids Overall: conjunctiva clear 11/13/2015 None Full Exam - General 1994 Eyes pupils and irises Overall: pupils equal, round, reactive to light and accomodation 11/13/2015 None Full Exam - General 1994 Ears/Nose/Throat otoscopic exam External auditory canal: partial cerumen occlusion 11/13/2015 None Full Exam - General 1994 Ears/Nose/Throat lips/teeth/gingiva Overall: benign lips 11/13/2015 None Full Exam - General 1994 Ears/Nose/Throat oral cavity/pharynx/larynx Overall: oral mucosa clear 11/13/2015 None Full Exam - General 1994 Respiratory auscultation Overall: breath sounds clear bilaterally 11/13/2015 None Full Exam - General 1994 Respiratory respiratory effort/rhythm Overall: no retractions 11/13/2015 None Full Exam - General 1994 Respiratory respiratory effort/rhythm Overall: normal rate 11/13/2015 None Full Exam - General 1994 Cardiovascular auscultation of heart Overall: regular rate 11/13/2015 None Full Exam - General 1994 Cardiovascular auscultation of heart Overall: normal heart sounds 11/13/2015 None Full Exam - General 1994 Abdomen abdominal exam Contour: rounded 11/13/2015 None Full Exam - General 1994 Abdomen abdominal exam Bowel sounds: hypoactive 11/13/2015 None Full Exam - General 1994 Abdomen abdominal exam Percussion: tympanitic 11/13/2015 None Full Exam - General 1994 Musculoskeletal spine, ribs and pelvis Posture: lordosis 11/13/2015 None Full Exam - General 1994 Musculoskeletal head and neck Overall: head atraumatic 11/13/2015 None Full Exam - General 1994 Neurologic coordination Overall: no tremors 11/13/2015 None Full Exam - General 1994 Psychiatric orientation/consciousness Overall: oriented to person, place and time 11/13/2015 None Full Exam - General 1994 Psychiatric mood and affect Overall: normal mood and affect 11/13/2015 None Full Exam - General 1994 Psychiatric mood and affect Mood: flat 11/13/2015 None Full Exam - General 1994 Neurologic gait Overall: no ataxia, no unsteadiness 11/13/2015 None Full Exam - General 1994 Constitutional general appearance Overall: well developed 11/03/2015 None Full Exam - General 1994 Constitutional general appearance Overall: in no acute distress 11/03/2015 None Full Exam - General 1994 Constitutional general appearance Overall: well nourished 11/03/2015 None Full Exam - General 1994 Eyes conjunctiva /eyelids Overall: conjunctiva clear 11/03/2015 None Full Exam - General 1994 Eyes pupils and irises Overall: pupils equal, round, reactive to light and accomodation 11/03/2015 bruising under both eyes noted Full Exam - General 1994 Ears/Nose/Throat otoscopic exam External auditory canal: partial cerumen occlusion 11/03/2015 None Full Exam - General 1994 Ears/Nose/Throat lips/teeth/gingiva Overall: benign lips 11/03/2015 None Full Exam - General 1994 Ears/Nose/Throat oral cavity/pharynx/larynx Overall: oral mucosa clear 11/03/2015 None Full Exam - General 1994 Respiratory auscultation Overall: breath sounds clear bilaterally 11/03/2015 None Full Exam - General 1994 Respiratory respiratory effort/rhythm Overall: no retractions 11/03/2015 None Full Exam - General 1994 Respiratory respiratory effort/rhythm Overall: normal rate 11/03/2015 None Full Exam - General 1994 Cardiovascular auscultation of heart Overall: regular rate 11/03/2015 None Full Exam - General 1994 Cardiovascular auscultation of heart Overall: normal heart sounds 11/03/2015 None Full Exam - General 1994 Abdomen abdominal exam Contour: rounded 11/03/2015 None Full Exam - General 1994 Abdomen abdominal exam Bowel sounds: hypoactive 11/03/2015 None Full Exam - General 1994 Abdomen abdominal exam Percussion: tympanitic 11/03/2015 None Full Exam - General 1994 Musculoskeletal spine, ribs and pelvis Posture: lordosis 11/03/2015 None Full Exam - General 1994 Musculoskeletal head and neck Overall: head atraumatic 11/03/2015 None Full Exam - General 1994 Neurologic gait Conventional walking: unsteady 11/03/2015 None Full Exam - General 1994 Neurologic coordination Overall: no tremors 11/03/2015 None Full Exam - General 1994 Psychiatric orientation/consciousness Overall: oriented to person, place and time 11/03/2015 None Full Exam - General 1994 Psychiatric mood and affect Overall: normal mood and affect 11/03/2015 None Full Exam - General 1994 Psychiatric mood and affect Mood: flat 11/03/2015 None Full Exam - General 1994 Constitutional general appearance Overall: well developed 10/20/2015 None Full Exam - General 1994 Constitutional general appearance Overall: in no acute distress 10/20/2015 None Full Exam - General 1994 Constitutional general appearance Overall: well nourished 10/20/2015 None Full Exam - General 1994 Constitutional general appearance Hygiene/Attention to Grooming: poor hygiene 10/20/2015 flakey, greasy appearing hair Full Exam - General 1994 Ears/Nose/Throat otoscopic exam External auditory canal: partial cerumen occlusion 10/20/2015 None Full Exam - General 1994 Ears/Nose/Throat lips/teeth/gingiva Overall: benign lips 10/20/2015 None Full Exam - General 1994 Ears/Nose/Throat oral cavity/pharynx/larynx Overall: oral mucosa clear 10/20/2015 None Full Exam - General 1994 Respiratory auscultation Overall: breath sounds clear bilaterally 10/20/2015 None Full Exam - General 1994 Respiratory respiratory effort/rhythm Overall: no retractions 10/20/2015 None Full Exam - General 1994 Respiratory respiratory effort/rhythm Overall: normal rate 10/20/2015 None Full Exam - General 1994 Cardiovascular auscultation of heart Overall: regular rate 10/20/2015 None Full Exam - General 1994 Cardiovascular auscultation of heart Overall: normal heart sounds 10/20/2015 None Full Exam - General 1994 Abdomen abdominal exam Contour: rounded 10/20/2015 None Full Exam - General 1994 Abdomen abdominal exam Bowel sounds: hypoactive 10/20/2015 None Full Exam - General 1994 Abdomen abdominal exam Percussion: tympanitic 10/20/2015 None Full Exam - General 1994 Musculoskeletal spine, ribs and pelvis Posture: lordosis 10/20/2015 None Full Exam - General 1994 Musculoskeletal head and neck Overall: head atraumatic 10/20/2015 None Full Exam - General 1994 Neurologic gait Conventional walking: unsteady 10/20/2015 None Full Exam - General 1994 Neurologic coordination Overall: no tremors 10/20/2015 None Full Exam - General 1994 Psychiatric orientation/consciousness Overall: oriented to person, place and time 10/20/2015 None Full Exam - General 1994 Psychiatric mood and affect Overall: normal mood and affect 10/20/2015 None Full Exam - General 1994 Psychiatric mood and affect Mood: flat 10/20/2015 None Full Exam - General 1994 Eyes conjunctiva /eyelids Overall: conjunctiva clear 10/20/2015 None Full Exam - General 1994 Eyes pupils and irises Overall: pupils equal, round, reactive to light and accomodation 10/20/2015 bruising under both eyes noted Full Exam - General 1994 Constitutional general appearance Overall: well developed 09/25/2015 None Full Exam - General 1994 Constitutional general appearance Overall: in no acute distress 09/25/2015 None Full Exam - General 1994 Constitutional general appearance Overall: well nourished 09/25/2015 None Full Exam - General 1994 Constitutional general appearance Hygiene/Attention to Grooming: poor hygiene 09/25/2015 flakey, greasy appearing hair Full Exam - General 1994 Eyes conjunctiva /eyelids Overall: conjunctiva clear 09/25/2015 None Full Exam - General 1994 Ears/Nose/Throat lips/teeth/gingiva Overall: benign lips 09/25/2015 None Full Exam - General 1994 Ears/Nose/Throat oral cavity/pharynx/larynx Overall: oral mucosa clear 09/25/2015 None Full Exam - General 1994 Respiratory respiratory effort/rhythm Overall: no retractions 09/25/2015 None Full Exam - General 1994 Respiratory respiratory effort/rhythm Overall: normal rate 09/25/2015 None Full Exam - General 1994 Cardiovascular auscultation of heart Overall: regular rate 09/25/2015 None Full Exam - General 1994 Cardiovascular auscultation of heart Overall: normal heart sounds 09/25/2015 None Full Exam - General 1994 Musculoskeletal spine, ribs and pelvis Posture: lordosis 09/25/2015 None Full Exam - General 1994 Musculoskeletal head and neck Overall: head atraumatic 09/25/2015 None Full Exam - General 1994 Psychiatric orientation/consciousness Overall: oriented to person, place and time 09/25/2015 None Full Exam - General 1994 Psychiatric mood and affect Overall: normal mood and affect 09/25/2015 None Full Exam - General 1994 Psychiatric mood and affect Mood: flat 09/25/2015 None Full Exam - General 1994 Abdomen abdominal exam Contour: rounded 09/25/2015 None Full Exam - General 1994 Abdomen abdominal exam Bowel sounds: hypoactive 09/25/2015 None Full Exam - General 1994 Abdomen abdominal exam Percussion: tympanitic 09/25/2015 None Full Exam - General 1994 Neurologic coordination Overall: no tremors 09/25/2015 None Full Exam - General 1994 Neurologic gait Conventional walking: unsteady 09/25/2015 None Full Exam - General 1994 Ears/Nose/Throat otoscopic exam External auditory canal: partial cerumen occlusion 09/25/2015 None Full Exam - General 1994 Respiratory auscultation Overall: breath sounds clear bilaterally 09/25/2015 None Full Exam - General 1994 Constitutional general appearance Overall: well developed 09/19/2015 None Full Exam - General 1994 Constitutional general appearance Overall: well nourished 09/19/2015 None Full Exam - General 1994 Constitutional general appearance Hygiene/Attention to Grooming: poor hygiene 09/19/2015 flakey, greasy appearing hair Full Exam - General 1994 Respiratory auscultation Overall: breath sounds clear bilaterally 09/19/2015 None Full Exam - General 1994 Respiratory respiratory effort/rhythm Overall: no retractions 09/19/2015 None Full Exam - General 1994 Respiratory respiratory effort/rhythm Overall: normal rate 09/19/2015 None Full Exam - General 1994 Cardiovascular auscultation of heart Overall: regular rate 09/19/2015 None Full Exam - General 1994 Cardiovascular auscultation of heart Overall: normal heart sounds 09/19/2015 None Full Exam - General 1994 Abdomen abdominal exam Contour: rounded 09/19/2015 None Full Exam - General 1994 Abdomen abdominal exam Bowel sounds: hypoactive 09/19/2015 None Full Exam - General 1994 Abdomen abdominal exam Percussion: tympanitic 09/19/2015 None Full Exam - General 1994 Psychiatric orientation/consciousness Overall: oriented to person, place and time 09/19/2015 None Full Exam - General 1994 Psychiatric mood and affect Overall: normal mood and affect 09/19/2015 None Full Exam - General 1994 Psychiatric mood and affect Mood: flat 09/19/2015 None Full Exam - General 1994 Constitutional general appearance Evidence of Distress: mild distress 09/19/2015 None Full Exam - General 1994 Constitutional general appearance Overall: well developed 08/25/2015 None Full Exam - General 1994 Constitutional general appearance Overall: in no acute distress 08/25/2015 None Full Exam - General 1994 Constitutional general appearance Overall: well nourished 08/25/2015 None Full Exam - General 1994 Constitutional general appearance Hygiene/Attention to Grooming: poor hygiene 08/25/2015 flakey, greasy appearing hair Full Exam - General 1994 Eyes conjunctiva /eyelids Overall: conjunctiva clear 08/25/2015 None Full Exam - General 1994 Ears/Nose/Throat lips/teeth/gingiva Overall: benign lips 08/25/2015 None Full Exam - General 1994 Ears/Nose/Throat oral cavity/pharynx/larynx Overall: oral mucosa clear 08/25/2015 None Full Exam - General 1994 Respiratory auscultation Lower lung field: diminished 08/25/2015 None Full Exam - General 1994 Respiratory respiratory effort/rhythm Overall: no retractions 08/25/2015 None Full Exam - General 1994 Respiratory respiratory effort/rhythm Overall: normal rate 08/25/2015 None Full Exam - General 1994 Cardiovascular auscultation of heart Overall: regular rate 08/25/2015 None Full Exam - General 1994 Cardiovascular auscultation of heart Overall: normal heart sounds 08/25/2015 None Full Exam - General 1994 Musculoskeletal spine, ribs and pelvis Posture: lordosis 08/25/2015 None Full Exam - General 1994 Musculoskeletal head and neck Overall: head atraumatic 08/25/2015 None Full Exam - General 1994 Psychiatric orientation/consciousness Overall: oriented to person, place and time 08/25/2015 None Full Exam - General 1994 Psychiatric mood and affect Overall: normal mood and affect 08/25/2015 None Full Exam - General 1994 Psychiatric mood and affect Mood: flat 08/25/2015 None Full Exam - General 1994 Respiratory auscultation Lower lung field: expiratory wheezes 08/25/2015 None Full Exam - General 1994 Constitutional general appearance Overall: well developed 08/18/2015 None Full Exam - General 1994 Constitutional general appearance Overall: in no acute distress 08/18/2015 None Full Exam - General 1994 Constitutional general appearance Overall: well nourished 08/18/2015 None Full Exam - General 1994 Constitutional general appearance Hygiene/Attention to Grooming: poor hygiene 08/18/2015 flakey, greasy appearing hair Full Exam - General 1994 Eyes conjunctiva /eyelids Overall: conjunctiva clear 08/18/2015 None Full Exam - General 1994 Ears/Nose/Throat lips/teeth/gingiva Overall: benign lips 08/18/2015 None Full Exam - General 1994 Ears/Nose/Throat oral cavity/pharynx/larynx Overall: oral mucosa clear 08/18/2015 None Full Exam - General 1994 Respiratory respiratory effort/rhythm Overall: no retractions 08/18/2015 None Full Exam - General 1994 Respiratory respiratory effort/rhythm Overall: normal rate 08/18/2015 None Full Exam - General 1994 Musculoskeletal spine, ribs and pelvis Posture: lordosis 08/18/2015 None Full Exam - General 1994 Musculoskeletal head and neck Overall: head atraumatic 08/18/2015 None Full Exam - General 1994 Psychiatric orientation/consciousness Overall: oriented to person, place and time 08/18/2015 None Full Exam - General 1994 Psychiatric mood and affect Overall: normal mood and affect 08/18/2015 None Full Exam - General 1994 Psychiatric mood and affect Mood: flat 08/18/2015 None Full Exam - General 1994 Respiratory auscultation Lower lung field: diminished 08/18/2015 None Full Exam - General 1994 Respiratory auscultation Lower lung field: expiratory wheezes 08/18/2015 None Full Exam - General 1994 Respiratory auscultation Lower lung field: rhonchi 08/18/2015 None Full Exam - General 1994 Respiratory auscultation Lower lung field: crackles 08/18/2015 None Full Exam - General 1994 Cardiovascular auscultation of heart Overall: regular rate 08/18/2015 None Full Exam - General 1994 Cardiovascular auscultation of heart Overall: normal heart sounds 08/18/2015 None Full Exam - General 1994 Constitutional general appearance Overall: well developed 08/14/2015 None Full Exam - General 1994 Constitutional general appearance Overall: in no acute distress 08/14/2015 None Full Exam - General 1994 Constitutional general appearance Overall: well nourished 08/14/2015 None Full Exam - General 1994 Constitutional general appearance Hygiene/Attention to Grooming: poor hygiene 08/14/2015 flakey, greasy appearing hair Full Exam - General 1994 Eyes pupils and irises Overall: pupils equal, round, reactive to light and accomodation 08/14/2015 None Full Exam - General 1994 Ears/Nose/Throat otoscopic exam Overall: external auditory canals clear 08/14/2015 None Full Exam - General 1994 Ears/Nose/Throat otoscopic exam Overall: tympanic membranes clear 08/14/2015 None Full Exam - General 1994 Ears/Nose/Throat oral cavity/pharynx/larynx Overall: oral mucosa clear 08/14/2015 None Full Exam - General 1994 Ears/Nose/Throat oral cavity/pharynx/larynx Overall: oropharyngeal mucosa clear 08/14/2015 None Full Exam - General 1994 Ears/Nose/Throat oral cavity/pharynx/larynx Overall: no masses 08/14/2015 None Full Exam - General 1994 Respiratory auscultation Overall: breath sounds clear bilaterally 08/14/2015 None Full Exam - General 1994 Respiratory respiratory effort/rhythm Overall: no retractions 08/14/2015 None Full Exam - General 1994 Respiratory respiratory effort/rhythm Overall: normal rate 08/14/2015 None Full Exam - General 1994 Cardiovascular auscultation of heart Overall: regular rate 08/14/2015 None Full Exam - General 1994 Cardiovascular auscultation of heart Overall: normal heart sounds 08/14/2015 None Full Exam - General 1994 Cardiovascular auscultation of heart Overall: no murmurs 08/14/2015 None Full Exam - General 1994 Abdomen abdominal exam Overall: no tenderness 08/14/2015 None Full Exam - General 1994 Musculoskeletal digits and nails Overall: no clubbing 08/14/2015 None Full Exam - General 1994 Musculoskeletal digits and nails Overall: digits benign 08/14/2015 None Full Exam - General 1994 Musculoskeletal spine, ribs and pelvis Overall: ribs benign 08/14/2015 None Full Exam - General 1994 Musculoskeletal spine, ribs and pelvis Posture: lordosis 08/14/2015 None Full Exam - General 1994 Musculoskeletal head and neck Overall: head atraumatic 08/14/2015 None Full Exam - General 1994 Musculoskeletal head and neck Overall: cervical spine benign 08/14/2015 None Full Exam - General 1994 Neurologic gait Overall: no ataxia, no unsteadiness 08/14/2015 None Full Exam - General 1994 Psychiatric orientation/consciousness Overall: oriented to person, place and time 08/14/2015 None Full Exam - General 1994 Psychiatric mood and affect Overall: normal mood and affect 08/14/2015 None Full Exam - General 1994 Psychiatric mood and affect Mood: happy 08/14/2015 None Full Exam - General 1994 Constitutional general appearance Overall: well developed 08/08/2015 None Full Exam - General 1994 Constitutional general appearance Overall: in no acute distress 08/08/2015 None Full Exam - General 1994 Constitutional general appearance Overall: well nourished 08/08/2015 None Full Exam - General 1994 Constitutional general appearance Hygiene/Attention to Grooming: poor hygiene 08/08/2015 flakey, greasy appearing hair Full Exam - General 1994 Ears/Nose/Throat oral cavity/pharynx/larynx Overall: oral mucosa clear 08/08/2015 None Full Exam - General 1994 Respiratory respiratory effort/rhythm Overall: no retractions 08/08/2015 None Full Exam - General 1994 Respiratory respiratory effort/rhythm Overall: normal rate 08/08/2015 None Full Exam - General 1994 Musculoskeletal spine, ribs and pelvis Posture: lordosis 08/08/2015 None Full Exam - General 1994 Musculoskeletal head and neck Overall: head atraumatic 08/08/2015 None Full Exam - General 1994 Neurologic gait Overall: no ataxia, no unsteadiness 08/08/2015 None Full Exam - General 1994 Psychiatric orientation/consciousness Overall: oriented to person, place and time 08/08/2015 None Full Exam - General 1994 Psychiatric mood and affect Overall: normal mood and affect 08/08/2015 None Full Exam - General 1994 Eyes conjunctiva /eyelids Overall: conjunctiva clear 08/08/2015 None Full Exam - General 1994 Ears/Nose/Throat lips/teeth/gingiva Overall: benign lips 08/08/2015 None Full Exam - General 1994 Musculoskeletal digits and nails Nails: onycholysis 08/08/2015 None Full Exam - General 1994 Psychiatric mood and affect Mood: flat 08/08/2015 None Full Exam - General 1994 Integument inspection of skin Location: left foot 08/08/2015 great toe - missing half of the nail Full Exam - General 1994 Neurologic sensation Touch: (specify location of deficit): light touch - diminished sensation in bilateral feet 08/08/2015 None Full Exam - General 1994 Constitutional general appearance Overall: well developed 06/15/2015 None Full Exam - General 1994 Constitutional general appearance Overall: in no acute distress 06/15/2015 None Full Exam - General 1994 Constitutional general appearance Overall: well nourished 06/15/2015 None Full Exam - General 1994 Constitutional general appearance Hygiene/Attention to Grooming: poor hygiene 06/15/2015 flakey, greasy appearing hair Full Exam - General 1994 Eyes pupils and irises Overall: pupils equal, round, reactive to light and accomodation 06/15/2015 None Full Exam - General 1994 Ears/Nose/Throat otoscopic exam Overall: external auditory canals clear 06/15/2015 None Full Exam - General 1994 Ears/Nose/Throat otoscopic exam Overall: tympanic membranes clear 06/15/2015 None Full Exam - General 1994 Ears/Nose/Throat oral cavity/pharynx/larynx Overall: oral mucosa clear 06/15/2015 None Full Exam - General 1994 Ears/Nose/Throat oral cavity/pharynx/larynx Overall: oropharyngeal mucosa clear 06/15/2015 None Full Exam - General 1994 Ears/Nose/Throat oral cavity/pharynx/larynx Overall: no masses 06/15/2015 None Full Exam - General 1994 Respiratory auscultation Overall: breath sounds clear bilaterally 06/15/2015 None Full Exam - General 1994 Respiratory respiratory effort/rhythm Overall: no retractions 06/15/2015 None Full Exam - General 1994 Respiratory respiratory effort/rhythm Overall: normal rate 06/15/2015 None Full Exam - General 1994 Cardiovascular auscultation of heart Overall: regular rate 06/15/2015 None Full Exam - General 1994 Cardiovascular auscultation of heart Overall: normal heart sounds 06/15/2015 None Full Exam - General 1994 Cardiovascular auscultation of heart Overall: no murmurs 06/15/2015 None Full Exam - General 1994 Abdomen abdominal exam Overall: no tenderness 06/15/2015 None Full Exam - General 1994 Musculoskeletal digits and nails Overall: no clubbing 06/15/2015 None Full Exam - General 1994 Musculoskeletal digits and nails Overall: digits benign 06/15/2015 None Full Exam - General 1994 Musculoskeletal spine, ribs and pelvis Overall: ribs benign 06/15/2015 None Full Exam - General 1994 Musculoskeletal spine, ribs and pelvis Posture: lordosis 06/15/2015 None Full Exam - General 1994 Musculoskeletal head and neck Overall: head atraumatic 06/15/2015 None Full Exam - General 1994 Musculoskeletal head and neck Overall: cervical spine benign 06/15/2015 None Full Exam - General 1994 Neurologic gait Overall: no ataxia, no unsteadiness 06/15/2015 None Full Exam - General 1994 Psychiatric orientation/consciousness Overall: oriented to person, place and time 06/15/2015 None Full Exam - General 1994 Psychiatric mood and affect Overall: normal mood and affect 06/15/2015 None Full Exam - General 1994 Psychiatric mood and affect Mood: happy 06/15/2015 None Full Exam - General 1994 Constitutional general appearance Overall: well developed 05/18/2015 None Full Exam - General 1994 Constitutional general appearance Overall: in no acute distress 05/18/2015 None Full Exam - General 1994 Constitutional general appearance Overall: well nourished 05/18/2015 None Full Exam - General 1994 Constitutional general appearance Hygiene/Attention to Grooming: poor hygiene 05/18/2015 flakey, greasy appearing hair Full Exam - General 1994 Eyes pupils and irises Overall: pupils equal, round, reactive to light and accomodation 05/18/2015 None Full Exam - General 1994 Ears/Nose/Throat otoscopic exam Overall: external auditory canals clear 05/18/2015 None Full Exam - General 1994 Ears/Nose/Throat otoscopic exam Overall: tympanic membranes clear 05/18/2015 None Full Exam - General 1994 Ears/Nose/Throat oral cavity/pharynx/larynx Overall: oral mucosa clear 05/18/2015 None Full Exam - General 1994 Ears/Nose/Throat oral cavity/pharynx/larynx Overall: oropharyngeal mucosa clear 05/18/2015 None Full Exam - General 1994 Ears/Nose/Throat oral cavity/pharynx/larynx Overall: no masses 05/18/2015 None Full Exam - General 1994 Respiratory auscultation Overall: breath sounds clear bilaterally 05/18/2015 None Full Exam - General 1994 Respiratory respiratory effort/rhythm Overall: no retractions 05/18/2015 None Full Exam - General 1994 Respiratory respiratory effort/rhythm Overall: normal rate 05/18/2015 None Full Exam - General 1994 Cardiovascular auscultation of heart Overall: regular rate 05/18/2015 None Full Exam - General 1994 Cardiovascular auscultation of heart Overall: normal heart sounds 05/18/2015 None Full Exam - General 1994 Cardiovascular auscultation of heart Overall: no murmurs 05/18/2015 None Full Exam - General 1994 Abdomen abdominal exam Overall: no tenderness 05/18/2015 None Full Exam - General 1994 Musculoskeletal digits and nails Overall: no clubbing 05/18/2015 None Full Exam - General 1994 Musculoskeletal digits and nails Overall: digits benign 05/18/2015 None Full Exam - General 1994 Musculoskeletal spine, ribs and pelvis Overall: ribs benign 05/18/2015 None Full Exam - General 1994 Musculoskeletal spine, ribs and pelvis Posture: lordosis 05/18/2015 None Full Exam - General 1994 Musculoskeletal head and neck Overall: head atraumatic 05/18/2015 None Full Exam - General 1994 Musculoskeletal head and neck Overall: cervical spine benign 05/18/2015 None Full Exam - General 1994 Neurologic gait Overall: no ataxia, no unsteadiness 05/18/2015 None Full Exam - General 1994 Psychiatric orientation/consciousness Overall: oriented to person, place and time 05/18/2015 None Full Exam - General 1994 Psychiatric mood and affect Overall: normal mood and affect 05/18/2015 None Full Exam - General 1994 Psychiatric mood and affect Mood: happy 05/18/2015 None Full Exam - General 1994 Constitutional general appearance Overall: well developed 02/21/2015 None Full Exam - General 1994 Constitutional general appearance Overall: in no acute distress 02/21/2015 None Full Exam - General 1994 Constitutional general appearance Overall: well nourished 02/21/2015 None Full Exam - General 1994 Constitutional general appearance Hygiene/Attention to Grooming: poor hygiene 02/21/2015 flakey, greasy appearing hair Full Exam - General 1994 Eyes pupils and irises Overall: pupils equal, round, reactive to light and accomodation 02/21/2015 None Full Exam - General 1994 Ears/Nose/Throat otoscopic exam Overall: external auditory canals clear 02/21/2015 None Full Exam - General 1994 Ears/Nose/Throat otoscopic exam Overall: tympanic membranes clear 02/21/2015 None Full Exam - General 1994 Ears/Nose/Throat oral cavity/pharynx/larynx Overall: oral mucosa clear 02/21/2015 None Full Exam - General 1994 Ears/Nose/Throat oral cavity/pharynx/larynx Overall: oropharyngeal mucosa clear 02/21/2015 None Full Exam - General 1994 Ears/Nose/Throat oral cavity/pharynx/larynx Overall: no masses 02/21/2015 None Full Exam - General 1994 Respiratory auscultation Overall: breath sounds clear bilaterally 02/21/2015 None Full Exam - General 1994 Respiratory respiratory effort/rhythm Overall: no retractions 02/21/2015 None Full Exam - General 1994 Respiratory respiratory effort/rhythm Overall: normal rate 02/21/2015 None Full Exam - General 1994 Cardiovascular auscultation of heart Overall: regular rate 02/21/2015 None Full Exam - General 1994 Cardiovascular auscultation of heart Overall: normal heart sounds 02/21/2015 None Full Exam - General 1994 Cardiovascular auscultation of heart Overall: no murmurs 02/21/2015 None Full Exam - General 1994 Abdomen abdominal exam Overall: no tenderness 02/21/2015 None Full Exam - General 1994 Musculoskeletal digits and nails Overall: no clubbing 02/21/2015 None Full Exam - General 1994 Musculoskeletal digits and nails Overall: digits benign 02/21/2015 None Full Exam - General 1994 Musculoskeletal spine, ribs and pelvis Overall: ribs benign 02/21/2015 None Full Exam - General 1994 Musculoskeletal spine, ribs and pelvis Posture: lordosis 02/21/2015 None Full Exam - General 1994 Musculoskeletal head and neck Overall: head atraumatic 02/21/2015 None Full Exam - General 1994 Musculoskeletal head and neck Overall: cervical spine benign 02/21/2015 None Full Exam - General 1994 Neurologic gait Overall: no ataxia, no unsteadiness 02/21/2015 None Full Exam - General 1994 Psychiatric orientation/consciousness Overall: oriented to person, place and time 02/21/2015 None Full Exam - General 1994 Psychiatric mood and affect Overall: normal mood and affect 02/21/2015 None Full Exam - General 1994 Psychiatric mood and affect Mood: happy 02/21/2015 None Full Exam - General 1994 Constitutional general appearance Overall: well developed 12/16/2014 None Full Exam - General 1994 Constitutional general appearance Overall: in no acute distress 12/16/2014 None Full Exam - General 1994 Constitutional general appearance Overall: well nourished 12/16/2014 None Full Exam - General 1994 Constitutional general appearance Hygiene/Attention to Grooming: poor hygiene 12/16/2014 flakey, greasy appearing hair Full Exam - General 1994 Eyes pupils and irises Overall: pupils equal, round, reactive to light and accomodation 12/16/2014 None Full Exam - General 1994 Ears/Nose/Throat otoscopic exam Overall: external auditory canals clear 12/16/2014 None Full Exam - General 1994 Ears/Nose/Throat otoscopic exam Overall: tympanic membranes clear 12/16/2014 None Full Exam - General 1994 Ears/Nose/Throat oral cavity/pharynx/larynx Overall: oropharyngeal mucosa clear 12/16/2014 None Full Exam - General 1994 Ears/Nose/Throat oral cavity/pharynx/larynx Overall: no masses 12/16/2014 None Full Exam - General 1994 Respiratory auscultation Overall: breath sounds clear bilaterally 12/16/2014 None Full Exam - General 1994 Respiratory respiratory effort/rhythm Overall: no retractions 12/16/2014 None Full Exam - General 1994 Respiratory respiratory effort/rhythm Overall: normal rate 12/16/2014 None Full Exam - General 1994 Cardiovascular auscultation of heart Overall: regular rate 12/16/2014 None Full Exam - General 1994 Cardiovascular auscultation of heart Overall: normal heart sounds 12/16/2014 None Full Exam - General 1994 Cardiovascular auscultation of heart Overall: no murmurs 12/16/2014 None Full Exam - General 1994 Musculoskeletal digits and nails Overall: no clubbing 12/16/2014 None Full Exam - General 1994 Musculoskeletal digits and nails Overall: digits benign 12/16/2014 None Full Exam - General 1994 Musculoskeletal spine, ribs and pelvis Overall: ribs benign 12/16/2014 None Full Exam - General 1994 Musculoskeletal spine, ribs and pelvis Posture: lordosis 12/16/2014 None Full Exam - General 1994 Musculoskeletal head and neck Overall: head atraumatic 12/16/2014 None Full Exam - General 1994 Musculoskeletal head and neck Overall: cervical spine benign 12/16/2014 None Full Exam - General 1994 Neurologic gait Overall: no ataxia, no unsteadiness 12/16/2014 None Full Exam - General 1994 Psychiatric orientation/consciousness Overall: oriented to person, place and time 12/16/2014 None Full Exam - General 1994 Psychiatric mood and affect Overall: normal mood and affect 12/16/2014 None Full Exam - General 1994 Psychiatric mood and affect Mood: happy 12/16/2014 None Full Exam - General 1994 Abdomen abdominal exam Overall: no tenderness 12/16/2014 None Full Exam - General 1994 Abdomen abdominal exam Bowel sounds: hypoactive 12/16/2014 None Full Exam - General 1994 Abdomen abdominal exam Percussion: dull 12/16/2014 None Full Exam - General 1994 Abdomen abdominal exam Upper quadrant: non-tender to palpation 12/16/2014 None Full Exam - General 1994 Abdomen abdominal exam Upper quadrant: no guarding 12/16/2014 None Full Exam - General 1994 Abdomen abdominal exam Lower quadrant: non-tender to palpation 12/16/2014 None Full Exam - General 1994 Abdomen abdominal exam Lower quadrant: no guarding 12/16/2014 None Full Exam - General 1994 Abdomen abdominal exam Upper quadrant: no rebound tenderness 12/16/2014 None Full Exam - General 1994 Abdomen abdominal exam Upper quadrant: no mass lesions 12/16/2014 None Full Exam - General 1994 Abdomen abdominal exam Upper quadrant: soft 12/16/2014 None Full Exam - General 1994 Abdomen abdominal exam Lower quadrant: no rebound tenderness 12/16/2014 None Full Exam - General 1994 Abdomen abdominal exam Lower quadrant: no mass lesions 12/16/2014 None Full Exam - General 1994 Abdomen abdominal exam Lower quadrant: soft 12/16/2014 None Full Exam - General 1994 Abdomen abdominal exam Epigastric: non-tender to palpation 12/16/2014 None Full Exam - General 1994 Abdomen abdominal exam Epigastric: no guarding 12/16/2014 None Full Exam - General 1994 Abdomen abdominal exam Epigastric: no rebound tenderness 12/16/2014 None Full Exam - General 1994 Abdomen abdominal exam Epigastric: no mass lesions 12/16/2014 None Full Exam - General 1994 Abdomen abdominal exam Epigastric: soft 12/16/2014 None Full Exam - General 1994 Ears/Nose/Throat oral cavity/pharynx/larynx Overall: oral mucosa clear 12/16/2014 None Full Exam - General 1994 Constitutional general appearance Overall: well developed 11/22/2014 None Full Exam - General 1994 Constitutional general appearance Overall: in no acute distress 11/22/2014 None Full Exam - General 1994 Constitutional general appearance Overall: well nourished 11/22/2014 None Full Exam - General 1994 Constitutional general appearance Hygiene/Attention to Grooming: poor hygiene 11/22/2014 flakey, greasy appearing hair Full Exam - General 1994 Eyes pupils and irises Overall: pupils equal, round, reactive to light and accomodation 11/22/2014 None Full Exam - General 1994 Ears/Nose/Throat otoscopic exam Overall: external auditory canals clear 11/22/2014 None Full Exam - General 1994 Ears/Nose/Throat otoscopic exam Overall: tympanic membranes clear 11/22/2014 None Full Exam - General 1994 Ears/Nose/Throat oral cavity/pharynx/larynx Overall: oropharyngeal mucosa clear 11/22/2014 None Full Exam - General 1994 Ears/Nose/Throat oral cavity/pharynx/larynx Overall: no masses 11/22/2014 None Full Exam - General 1994 Ears/Nose/Throat oral cavity/pharynx/larynx Oral mucosa: dry 11/22/2014 None Full Exam - General 1994 Ears/Nose/Throat oral cavity/pharynx/larynx Oropharynx: thrush 11/22/2014 None Full Exam - General 1994 Neck inspection of neck Appearance: surgical scarring 11/22/2014 healing incisions Full Exam - General 1994 Respiratory auscultation Overall: breath sounds clear bilaterally 11/22/2014 None Full Exam - General 1994 Respiratory respiratory effort/rhythm Overall: no retractions 11/22/2014 None Full Exam - General 1994 Respiratory respiratory effort/rhythm Overall: normal rate 11/22/2014 None Full Exam - General 1994 Cardiovascular auscultation of heart Overall: regular rate 11/22/2014 None Full Exam - General 1994 Cardiovascular auscultation of heart Overall: normal heart sounds 11/22/2014 None Full Exam - General 1994 Cardiovascular auscultation of heart Overall: no murmurs 11/22/2014 None Full Exam - General 1994 Musculoskeletal digits and nails Overall: no clubbing 11/22/2014 None Full Exam - General 1994 Musculoskeletal digits and nails Overall: digits benign 11/22/2014 None Full Exam - General 1994 Musculoskeletal spine, ribs and pelvis Overall: ribs benign 11/22/2014 None Full Exam - General 1994 Musculoskeletal spine, ribs and pelvis Posture: lordosis 11/22/2014 None Full Exam - General 1994 Musculoskeletal head and neck Overall: head atraumatic 11/22/2014 None Full Exam - General 1994 Musculoskeletal head and neck Overall: cervical spine benign 11/22/2014 None Full Exam - General 1994 Neurologic gait Overall: no ataxia, no unsteadiness 11/22/2014 None Full Exam - General 1994 Psychiatric orientation/consciousness Overall: oriented to person, place and time 11/22/2014 None Full Exam - General 1994 Psychiatric mood and affect Overall: normal mood and affect 11/22/2014 None Full Exam - General 1994 Psychiatric mood and affect Mood: happy 11/22/2014 None Full Exam - General 1994 Constitutional general appearance Overall: in no acute distress 10/27/2014 None Full Exam - General 1994 Constitutional general appearance Overall: well nourished 10/27/2014 None Full Exam - General 1994 Eyes conjunctiva /eyelids Overall: conjunctiva clear 10/27/2014 None Full Exam - General 1994 Eyes pupils and irises Overall: pupils equal, round, reactive to light and accomodation 10/27/2014 None Full Exam - General 1994 Ears/Nose/Throat otoscopic exam Overall: external auditory canals clear 10/27/2014 None Full Exam - General 1994 Ears/Nose/Throat otoscopic exam Overall: tympanic membranes clear 10/27/2014 None Full Exam - General 1994 Ears/Nose/Throat oral cavity/pharynx/larynx Overall: oral mucosa clear 10/27/2014 None Full Exam - General 1994 Ears/Nose/Throat oral cavity/pharynx/larynx Overall: oropharyngeal mucosa clear 10/27/2014 None Full Exam - General 1994 Ears/Nose/Throat oral cavity/pharynx/larynx Overall: no masses 10/27/2014 None Full Exam - General 1994 Respiratory auscultation Overall: breath sounds clear bilaterally 10/27/2014 None Full Exam - General 1994 Respiratory respiratory effort/rhythm Overall: no retractions 10/27/2014 None Full Exam - General 1994 Respiratory respiratory effort/rhythm Overall: normal rate 10/27/2014 None Full Exam - General 1994 Cardiovascular auscultation of heart Overall: regular rate 10/27/2014 None Full Exam - General 1994 Cardiovascular auscultation of heart Overall: normal heart sounds 10/27/2014 None Full Exam - General 1994 Cardiovascular auscultation of heart Overall: no murmurs 10/27/2014 None Full Exam - General 1994 Abdomen abdominal exam Overall: no tenderness 10/27/2014 None Full Exam - General 1994 Abdomen abdominal exam Overall: normal bowel sounds 10/27/2014 None Full Exam - General 1994 Abdomen abdominal exam Contour: rounded 10/27/2014 None Full Exam - General 1994 Abdomen abdominal exam Bowel sounds: a normal exam 10/27/2014 None Full Exam - General 1994 Musculoskeletal digits and nails Overall: no clubbing 10/27/2014 None Full Exam - General 1994 Musculoskeletal digits and nails Overall: digits benign 10/27/2014 None Full Exam - General 1994 Musculoskeletal head and neck Overall: head atraumatic 10/27/2014 None Full Exam - General 1994 Musculoskeletal head and neck Overall: cervical spine benign 10/27/2014 None Full Exam - General 1994 Neurologic gait Overall: no ataxia, no unsteadiness 10/27/2014 None Full Exam - General 1994 Neurologic cranial nerves Overall: crainial nerves 2 - 12 grossly intact 10/27/2014 None Full Exam - General 1994 Psychiatric orientation/consciousness Overall: oriented to person, place and time 10/27/2014 None Full Exam - General 1994 Psychiatric mood and affect Overall: normal mood and affect 10/27/2014 None Full Exam - General 1994 Psychiatric mood and affect Mood: happy 10/27/2014 None Full Exam - General 1994 Constitutional general appearance Development: appears older than stated age 0910/27/2014 None Full Exam - General 1994 Constitutional general appearance Hygiene/Attention to Grooming: poor hygiene 10/27/2014 None Full Exam - General 1994 Constitutional general appearance Hygiene/Attention to Grooming: smells of urine 10/27/2014 None Full Exam - General 1994 Constitutional general appearance Overall: well developed 09/06/2014 None Full Exam - General 1994 Constitutional general appearance Overall: in no acute distress 09/06/2014 None Full Exam - General 1994 Constitutional general appearance Overall: well nourished 09/06/2014 None Full Exam - General 1994 Eyes conjunctiva /eyelids Overall: conjunctiva clear 09/06/2014 None Full Exam - General 1994 Ears/Nose/Throat otoscopic exam Overall: external auditory canals clear 09/06/2014 None Full Exam - General 1994 Ears/Nose/Throat otoscopic exam Overall: tympanic membranes clear 09/06/2014 None Full Exam - General 1994 Ears/Nose/Throat oral cavity/pharynx/larynx Overall: oral mucosa clear 09/06/2014 None Full Exam - General 1994 Respiratory auscultation Overall: breath sounds clear bilaterally 09/06/2014 None Full Exam - General 1994 Cardiovascular auscultation of heart Overall: regular rate 09/06/2014 None Full Exam - General 1994 Cardiovascular auscultation of heart Overall: normal heart sounds 09/06/2014 None Full Exam - General 1994 Abdomen abdominal exam Contour: rounded 09/06/2014 None Full Exam - General 1994 Abdomen abdominal exam Bowel sounds: a normal exam 09/06/2014 None Full Exam - General 1994 Musculoskeletal head and neck Overall: head atraumatic 09/06/2014 None Full Exam - General 1994 Neurologic cranial nerves Overall: crainial nerves 2 - 12 grossly intact 09/06/2014 None Full Exam - General 1994 Psychiatric orientation/consciousness Overall: oriented to person, place and time 09/06/2014 None Full Exam - General 1994 Eyes pupils and irises Overall: pupils equal, round, reactive to light and accomodation 09/06/2014 None Full Exam - General 1994 Ears/Nose/Throat oral cavity/pharynx/larynx Overall: oropharyngeal mucosa clear 09/06/2014 None Full Exam - General 1994 Ears/Nose/Throat oral cavity/pharynx/larynx Overall: no masses 09/06/2014 None Full Exam - General 1994 Respiratory respiratory effort/rhythm Overall: no retractions 09/06/2014 None Full Exam - General 1994 Respiratory respiratory effort/rhythm Overall: normal rate 09/06/2014 None Full Exam - General 1994 Cardiovascular auscultation of heart Overall: no murmurs 09/06/2014 None Full Exam - General 1994 Abdomen abdominal exam Overall: no tenderness 09/06/2014 None Full Exam - General 1994 Abdomen abdominal exam Overall: normal bowel sounds 09/06/2014 None Full Exam - General 1994 Musculoskeletal digits and nails Overall: no clubbing 09/06/2014 None Full Exam - General 1994 Musculoskeletal digits and nails Overall: digits benign 09/06/2014 None Full Exam - General 1994 Musculoskeletal head and neck Overall: cervical spine benign 09/06/2014 None Full Exam - General 1994 Neurologic gait Overall: no ataxia, no unsteadiness 09/06/2014 None Full Exam - General 1994 Psychiatric mood and affect Overall: normal mood and affect 09/06/2014 None Full Exam - General 1994 Psychiatric mood and affect Mood: happy 09/06/2014 None Full Exam - General 1994 Integument inspection of skin Location: left foot 09/06/2014 plantar surface left foot medial aspect ulcer approx 1 cm x 0.5cm deep -thick fibrous tissue debrided today in [facility] Full Exam - General 1994 Constitutional general appearance Overall: well developed 08/02/2014 None Full Exam - General 1994 Constitutional general appearance Overall: in no acute distress 08/02/2014 None Full Exam - General 1994 Constitutional general appearance Overall: well nourished 08/02/2014 None Full Exam - General 1994 Eyes conjunctiva /eyelids Overall: conjunctiva clear 08/02/2014 None Full Exam - General 1994 Ears/Nose/Throat oral cavity/pharynx/larynx Overall: oral mucosa clear 08/02/2014 None Full Exam - General 1994 Respiratory auscultation Overall: breath sounds clear bilaterally 08/02/2014 persistent dry cough Full Exam - General 1994 Cardiovascular auscultation of heart Overall: regular rate 08/02/2014 None Full Exam - General 1994 Cardiovascular auscultation of heart Overall: normal heart sounds 08/02/2014 None Full Exam - General 1994 Abdomen abdominal exam Contour: rounded 08/02/2014 None Full Exam - General 1994 Abdomen abdominal exam Bowel sounds: a normal exam 08/02/2014 None Full Exam - General 1994 Musculoskeletal head and neck Overall: head atraumatic 08/02/2014 None Full Exam - General 1994 Integument inspection of skin Overall: no rash, lesions 08/02/2014 None Full Exam - General 1994 Neurologic cranial nerves Overall: crainial nerves 2 - 12 grossly intact 08/02/2014 None Full Exam - General 1994 Psychiatric orientation/consciousness Overall: oriented to person, place and time 08/02/2014 None Full Exam - General 1994 Constitutional general appearance Overall: well developed 07/26/2014 None Full Exam - General 1994 Constitutional general appearance Overall: in no acute distress 07/26/2014 None Full Exam - General 1994 Constitutional general appearance Overall: well nourished 07/26/2014 None Full Exam - General 1994 Eyes conjunctiva /eyelids Overall: conjunctiva clear 07/26/2014 None Full Exam - General 1994 Ears/Nose/Throat otoscopic exam Overall: external auditory canals clear 07/26/2014 None Full Exam - General 1994 Ears/Nose/Throat otoscopic exam Overall: tympanic membranes clear 07/26/2014 None Full Exam - General 1994 Ears/Nose/Throat oral cavity/pharynx/larynx Overall: oral mucosa clear 07/26/2014 None Full Exam - General 1994 Respiratory auscultation Overall: breath sounds clear bilaterally 07/26/2014 persistent dry cough Full Exam - General 1994 Respiratory auscultation Basilar: diminished 07/26/2014 None Full Exam - General 1994 Cardiovascular auscultation of heart Overall: regular rate 07/26/2014 None Full Exam - General 1994 Cardiovascular auscultation of heart Overall: normal heart sounds 07/26/2014 None Full Exam - General 1994 Abdomen abdominal exam Contour: rounded 07/26/2014 None Full Exam - General 1994 Abdomen abdominal exam Bowel sounds: a normal exam 07/26/2014 None Full Exam - General 1994 Musculoskeletal head and neck Overall: head atraumatic 07/26/2014 None Full Exam - General 1994 Integument inspection of skin Overall: no rash, lesions 07/26/2014 None Full Exam - General 1994 Neurologic cranial nerves Overall: crainial nerves 2 - 12 grossly intact 07/26/2014 None Full Exam - General 1994 Psychiatric orientation/consciousness Overall: oriented to person, place and time 07/26/2014 None Full Exam - General 1994 Constitutional general appearance Overall: well developed 07/19/2014 None Full Exam - General 1994 Constitutional general appearance Overall: in no acute distress 07/19/2014 None Full Exam - General 1994 Constitutional general appearance Overall: well nourished 07/19/2014 None Full Exam - General 1994 Psychiatric orientation/consciousness Overall: oriented to person, place and time 07/19/2014 None Full Exam - General 1994 Neurologic cranial nerves Overall: crainial nerves 2 - 12 grossly intact 07/19/2014 None Full Exam - General 1994 Integument inspection of skin Overall: no rash, lesions 07/19/2014 None Full Exam - General 1994 Musculoskeletal head and neck Overall: head atraumatic 07/19/2014 None Full Exam - General 1994 Abdomen abdominal exam Contour: rounded 07/19/2014 None Full Exam - General 1994 Abdomen abdominal exam Bowel sounds: a normal exam 07/19/2014 None Full Exam - General 1994 Cardiovascular auscultation of heart Overall: regular rate 07/19/2014 None Full Exam - General 1994 Cardiovascular auscultation of heart Overall: normal heart sounds 07/19/2014 None Full Exam - General 1994 Respiratory auscultation Overall: breath sounds clear bilaterally 07/19/2014 persistent dry cough Full Exam - General 1994 Ears/Nose/Throat otoscopic exam Overall: external auditory canals clear 07/19/2014 None Full Exam - General 1994 Ears/Nose/Throat otoscopic exam Overall: tympanic membranes clear 07/19/2014 None Full Exam - General 1994 Ears/Nose/Throat oral cavity/pharynx/larynx Overall: oral mucosa clear 07/19/2014 None Full Exam - General 1994 Eyes conjunctiva /eyelids Overall: conjunctiva clear 07/19/2014 None Full Exam - General 1994 Respiratory auscultation Basilar: diminished 07/19/2014 None Full Exam - General 1994 Constitutional general appearance Overall: well developed 04/01/2014 None Full Exam - General 1994 Constitutional general appearance Overall: in no acute distress 04/01/2014 None Full Exam - General 1994 Constitutional general appearance Overall: well nourished 04/01/2014 None Full Exam - General 1994 Eyes pupils and irises Overall: pupils equal, round, reactive to light and accomodation 04/01/2014 None Full Exam - General 1994 Ears/Nose/Throat otoscopic exam Overall: external auditory canals clear 04/01/2014 None Full Exam - General 1994 Ears/Nose/Throat otoscopic exam Overall: tympanic membranes clear 04/01/2014 None Full Exam - General 1994 Ears/Nose/Throat oral cavity/pharynx/larynx Overall: oropharyngeal mucosa clear 04/01/2014 None Full Exam - General 1994 Ears/Nose/Throat oral cavity/pharynx/larynx Overall: no masses 04/01/2014 None Full Exam - General 1994 Respiratory auscultation Overall: breath sounds clear bilaterally 04/01/2014 None Full Exam - General 1994 Respiratory respiratory effort/rhythm Overall: no retractions 04/01/2014 None Full Exam - General 1994 Respiratory respiratory effort/rhythm Overall: normal rate 04/01/2014 None Full Exam - General 1994 Cardiovascular auscultation of heart Overall: regular rate 04/01/2014 None Full Exam - General 1994 Cardiovascular auscultation of heart Overall: normal heart sounds 04/01/2014 None Full Exam - General 1994 Cardiovascular auscultation of heart Overall: no murmurs 04/01/2014 None Full Exam - General 1994 Abdomen abdominal exam Overall: no tenderness 04/01/2014 None Full Exam - General 1994 Abdomen abdominal exam Overall: normal bowel sounds 04/01/2014 None Full Exam - General 1994 Musculoskeletal digits and nails Overall: no clubbing 04/01/2014 None Full Exam - General 1994 Musculoskeletal digits and nails Overall: digits benign 04/01/2014 None Full Exam - General 1994 Musculoskeletal head and neck Overall: head atraumatic 04/01/2014 None Full Exam - General 1994 Musculoskeletal head and neck Overall: cervical spine benign 04/01/2014 None Full Exam - General 1994 Neurologic gait Overall: no ataxia, no unsteadiness 04/01/2014 None Full Exam - General 1994 Psychiatric orientation/consciousness Overall: oriented to person, place and time 04/01/2014 None Full Exam - General 1994 Psychiatric mood and affect Overall: normal mood and affect 04/01/2014 None Full Exam - General 1994 Psychiatric mood and affect Mood: happy 04/01/2014 None Full Exam - General 1994 Constitutional general appearance Overall: well developed 03/14/2014 None Full Exam - General 1994 Constitutional general appearance Overall: in no acute distress 03/14/2014 None Full Exam - General 1994 Constitutional general appearance Overall: well nourished 03/14/2014 None Full Exam - General 1994 Eyes pupils and irises Overall: pupils equal, round, reactive to light and accomodation 03/14/2014 None Full Exam - General 1994 Ears/Nose/Throat otoscopic exam Overall: external auditory canals clear 03/14/2014 None Full Exam - General 1994 Ears/Nose/Throat otoscopic exam Overall: tympanic membranes clear 03/14/2014 None Full Exam - General 1994 Ears/Nose/Throat oral cavity/pharynx/larynx Overall: oropharyngeal mucosa clear 03/14/2014 None Full Exam - General 1994 Ears/Nose/Throat oral cavity/pharynx/larynx Overall: no masses 03/14/2014 None Full Exam - General 1994 Respiratory auscultation Overall: breath sounds clear bilaterally 03/14/2014 None Full Exam - General 1994 Respiratory respiratory effort/rhythm Overall: no retractions 03/14/2014 None Full Exam - General 1994 Respiratory respiratory effort/rhythm Overall: normal rate 03/14/2014 None Full Exam - General 1994 Cardiovascular auscultation of heart Overall: regular rate 03/14/2014 None Full Exam - General 1994 Cardiovascular auscultation of heart Overall: normal heart sounds 03/14/2014 None Full Exam - General 1994 Cardiovascular auscultation of heart Overall: no murmurs 03/14/2014 None Full Exam - General 1994 Abdomen abdominal exam Overall: no tenderness 03/14/2014 None Full Exam - General 1994 Abdomen abdominal exam Overall: normal bowel sounds 03/14/2014 None Full Exam - General 1994 Musculoskeletal digits and nails Overall: no clubbing 03/14/2014 None Full Exam - General 1994 Musculoskeletal digits and nails Overall: digits benign 03/14/2014 None Full Exam - General 1994 Musculoskeletal head and neck Overall: head atraumatic 03/14/2014 None Full Exam - General 1994 Musculoskeletal head and neck Overall: cervical spine benign 03/14/2014 None Full Exam - General 1994 Neurologic gait Overall: no ataxia, no unsteadiness 03/14/2014 None Full Exam - General 1994 Psychiatric orientation/consciousness Overall: oriented to person, place and time 03/14/2014 None Full Exam - General 1994 Psychiatric mood and affect Overall: normal mood and affect 03/14/2014 None Full Exam - General 1994 Psychiatric mood and affect Mood: happy 03/14/2014 None Full Exam - General 1994 Constitutional general appearance Overall: well developed 02/21/2014 None Full Exam - General 1994 Constitutional general appearance Overall: in no acute distress 02/21/2014 None Full Exam - General 1994 Constitutional general appearance Overall: well nourished 02/21/2014 None Full Exam - General 1994 Eyes pupils and irises Overall: pupils equal, round, reactive to light and accomodation 02/21/2014 None Full Exam - General 1994 Ears/Nose/Throat otoscopic exam Overall: external auditory canals clear 02/21/2014 None Full Exam - General 1994 Ears/Nose/Throat otoscopic exam Overall: tympanic membranes clear 02/21/2014 None Full Exam - General 1994 Ears/Nose/Throat oral cavity/pharynx/larynx Overall: oropharyngeal mucosa clear 02/21/2014 None Full Exam - General 1994 Ears/Nose/Throat oral cavity/pharynx/larynx Overall: no masses 02/21/2014 None Full Exam - General 1994 Respiratory auscultation Overall: breath sounds clear bilaterally 02/21/2014 None Full Exam - General 1994 Respiratory respiratory effort/rhythm Overall: no retractions 02/21/2014 None Full Exam - General 1994 Respiratory respiratory effort/rhythm Overall: normal rate 02/21/2014 None Full Exam - General 1994 Cardiovascular auscultation of heart Overall: regular rate 02/21/2014 None Full Exam - General 1994 Cardiovascular auscultation of heart Overall: normal heart sounds 02/21/2014 None Full Exam - General 1994 Cardiovascular auscultation of heart Overall: no murmurs 02/21/2014 None Full Exam - General 1994 Musculoskeletal digits and nails Overall: no clubbing 02/21/2014 None Full Exam - General 1994 Musculoskeletal digits and nails Overall: digits benign 02/21/2014 None Full Exam - General 1994 Musculoskeletal head and neck Overall: head atraumatic 02/21/2014 None Full Exam - General 1994 Musculoskeletal head and neck Overall: cervical spine benign 02/21/2014 None Full Exam - General 1994 Neurologic gait Overall: no ataxia, no unsteadiness 02/21/2014 None Full Exam - General 1994 Psychiatric orientation/consciousness Overall: oriented to person, place and time 02/21/2014 None Full Exam - General 1994 Psychiatric mood and affect Overall: normal mood and affect 02/21/2014 None Full Exam - General 1994 Psychiatric mood and affect Mood: happy 02/21/2014 None Full Exam - General 1994 Abdomen abdominal exam Overall: no tenderness 02/21/2014 None Full Exam - General 1994 Abdomen abdominal exam Overall: normal bowel sounds 02/21/2014 None Full Exam - General 1994 Constitutional general appearance Overall: well developed 01/18/2014 None Full Exam - General 1994 Constitutional general appearance Overall: in no acute distress 01/18/2014 None Full Exam - General 1994 Constitutional general appearance Overall: well nourished 01/18/2014 None Full Exam - General 1994 Eyes pupils and irises Overall: pupils equal, round, reactive to light and accomodation 01/18/2014 None Full Exam - General 1994 Ears/Nose/Throat otoscopic exam Overall: external auditory canals clear 01/18/2014 None Full Exam - General 1994 Ears/Nose/Throat otoscopic exam Overall: tympanic membranes clear 01/18/2014 None Full Exam - General 1994 Ears/Nose/Throat oral cavity/pharynx/larynx Overall: oropharyngeal mucosa clear 01/18/2014 None Full Exam - General 1994 Ears/Nose/Throat oral cavity/pharynx/larynx Overall: no masses 01/18/2014 None Full Exam - General 1994 Respiratory auscultation Overall: breath sounds clear bilaterally 01/18/2014 None Full Exam - General 1994 Respiratory respiratory effort/rhythm Overall: no retractions 01/18/2014 None Full Exam - General 1994 Respiratory respiratory effort/rhythm Overall: normal rate 01/18/2014 None Full Exam - General 1994 Cardiovascular auscultation of heart Overall: regular rate 01/18/2014 None Full Exam - General 1994 Cardiovascular auscultation of heart Overall: normal heart sounds 01/18/2014 None Full Exam - General 1994 Cardiovascular auscultation of heart Overall: no murmurs 01/18/2014 None Full Exam - General 1994 Musculoskeletal digits and nails Overall: no clubbing 01/18/2014 None Full Exam - General 1994 Musculoskeletal digits and nails Overall: digits benign 01/18/2014 None Full Exam - General 1994 Musculoskeletal head and neck Overall: head atraumatic 01/18/2014 None Full Exam - General 1994 Neurologic gait Overall: no ataxia, no unsteadiness 01/18/2014 None Full Exam - General 1994 Psychiatric orientation/consciousness Overall: oriented to person, place and time 01/18/2014 None Full Exam - General 1994 Psychiatric mood and affect Overall: normal mood and affect 01/18/2014 None Full Exam - General 1994 Psychiatric mood and affect Mood: happy 01/18/2014 None Full Exam - General 1994 Musculoskeletal head and neck Cervical Spine: tender 01/18/2014 None Full Exam - General 1994 Musculoskeletal head and neck Cervical Spine: full flexion 01/18/2014 None Full Exam - General 1994 Musculoskeletal head and neck Cervical Spine: full extension 01/18/2014 None Full Exam - General 1994 Musculoskeletal spine, ribs and pelvis Spine: tender @ lumbar spine 01/18/2014 None Full Exam - General 1994 Constitutional general appearance Overall: well developed 09/09/2013 None Full Exam - General 1994 Constitutional general appearance Overall: in no acute distress 09/09/2013 None Full Exam - General 1994 Constitutional general appearance Overall: well nourished 09/09/2013 None Full Exam - General 1994 Eyes pupils and irises Overall: pupils equal, round, reactive to light and accomodation 09/09/2013 None Full Exam - General 1994 Ears/Nose/Throat otoscopic exam Overall: external auditory canals clear 09/09/2013 None Full Exam - General 1994 Ears/Nose/Throat otoscopic exam Overall: tympanic membranes clear 09/09/2013 None Full Exam - General 1994 Ears/Nose/Throat oral cavity/pharynx/larynx Overall: oropharyngeal mucosa clear 09/09/2013 None Full Exam - General 1994 Ears/Nose/Throat oral cavity/pharynx/larynx Overall: no masses 09/09/2013 None Full Exam - General 1994 Respiratory auscultation Overall: breath sounds clear bilaterally 09/09/2013 None Full Exam - General 1994 Respiratory respiratory effort/rhythm Overall: no retractions 09/09/2013 None Full Exam - General 1994 Respiratory respiratory effort/rhythm Overall: normal rate 09/09/2013 None Full Exam - General 1994 Cardiovascular auscultation of heart Overall: regular rate 09/09/2013 None Full Exam - General 1994 Cardiovascular auscultation of heart Overall: normal heart sounds 09/09/2013 None Full Exam - General 1994 Cardiovascular auscultation of heart Overall: no murmurs 09/09/2013 None Full Exam - General 1994 Musculoskeletal digits and nails Overall: no clubbing 09/09/2013 None Full Exam - General 1994 Musculoskeletal digits and nails Overall: digits benign 09/09/2013 None Full Exam - General 1994 Musculoskeletal head and neck Overall: head atraumatic 09/09/2013 None Full Exam - General 1994 Musculoskeletal head and neck Overall: cervical spine benign 09/09/2013 None Full Exam - General 1994 Neurologic gait Overall: no ataxia, no unsteadiness 09/09/2013 None Full Exam - General 1994 Psychiatric orientation/consciousness Overall: oriented to person, place and time 09/09/2013 None Full Exam - General 1994 Psychiatric mood and affect Overall: normal mood and affect 09/09/2013 None Full Exam - General 1994 Psychiatric mood and affect Mood: happy 09/09/2013 None Full Exam - General 1994 Constitutional general appearance Overall: well developed 08/19/2013 None Full Exam - General 1994 Constitutional general appearance Overall: in no acute distress 08/19/2013 None Full Exam - General 1994 Constitutional general appearance Overall: well nourished 08/19/2013 None Full Exam - General 1994 Eyes pupils and irises Overall: pupils equal, round, reactive to light and accomodation 08/19/2013 None Full Exam - General 1994 Respiratory auscultation Overall: breath sounds clear bilaterally 08/19/2013 None Full Exam - General 1994 Respiratory respiratory effort/rhythm Overall: no retractions 08/19/2013 None Full Exam - General 1994 Respiratory respiratory effort/rhythm Overall: normal rate 08/19/2013 None Full Exam - General 1994 Cardiovascular auscultation of heart Overall: regular rate 08/19/2013 None Full Exam - General 1994 Cardiovascular auscultation of heart Overall: normal heart sounds 08/19/2013 None Full Exam - General 1994 Cardiovascular auscultation of heart Overall: no murmurs 08/19/2013 None Full Exam - General 1994 Musculoskeletal spine, ribs and pelvis Overall: ribs benign 08/19/2013 None Full Exam - General 1994 Musculoskeletal spine, ribs and pelvis Posture: lordosis 08/19/2013 None Full Exam - General 1994 Musculoskeletal head and neck Overall: head atraumatic 08/19/2013 None Full Exam - General 1994 Musculoskeletal head and neck Overall: cervical spine benign 08/19/2013 None Full Exam - General 1994 Neurologic gait Overall: no ataxia, no unsteadiness 08/19/2013 None Full Exam - General 1994 Psychiatric orientation/consciousness Overall: oriented to person, place and time 08/19/2013 None Full Exam - General 1994 Psychiatric mood and affect Overall: normal mood and affect 08/19/2013 None Full Exam - General 1994 Psychiatric mood and affect Mood: happy 08/19/2013 None Full Exam - General 1994 Integument inspection of skin Overall: no rash, lesions 08/19/2013 None Full Exam - General 1994 Abdomen abdominal exam Overall: normal bowel sounds 08/19/2013 tender over right abdomen/flank - tender to palpation, not to percussion, no periotoneal signs - Full Exam - General 1994 Constitutional general appearance Overall: well developed 08/02/2013 None Full Exam - General 1994 Constitutional general appearance Overall: in no acute distress 08/02/2013 None Full Exam - General 1994 Constitutional general appearance Overall: well nourished 08/02/2013 None Full Exam - General 1994 Eyes pupils and irises Overall: pupils equal, round, reactive to light and accomodation 08/02/2013 None Full Exam - General 1994 Ears/Nose/Throat otoscopic exam Overall: external auditory canals clear 08/02/2013 None Full Exam - General 1994 Ears/Nose/Throat otoscopic exam Overall: tympanic membranes clear 08/02/2013 None Full Exam - General 1994 Ears/Nose/Throat oral cavity/pharynx/larynx Overall: oropharyngeal mucosa clear 08/02/2013 None Full Exam - General 1994 Ears/Nose/Throat oral cavity/pharynx/larynx Overall: no masses 08/02/2013 None Full Exam - General 1994 Ears/Nose/Throat oral cavity/pharynx/larynx Oral mucosa: dry 08/02/2013 None Full Exam - General 1994 Ears/Nose/Throat oral cavity/pharynx/larynx Oropharynx: thrush 08/02/2013 None Full Exam - General 1994 Neck inspection of neck Appearance: surgical scarring 08/02/2013 healing incisions Full Exam - General 1994 Respiratory auscultation Overall: breath sounds clear bilaterally 08/02/2013 None Full Exam - General 1994 Respiratory respiratory effort/rhythm Overall: no retractions 08/02/2013 None Full Exam - General 1994 Respiratory respiratory effort/rhythm Overall: normal rate 08/02/2013 None Full Exam - General 1994 Cardiovascular auscultation of heart Overall: regular rate 08/02/2013 None Full Exam - General 1994 Cardiovascular auscultation of heart Overall: normal heart sounds 08/02/2013 None Full Exam - General 1994 Cardiovascular auscultation of heart Overall: no murmurs 08/02/2013 None Full Exam - General 1994 Musculoskeletal digits and nails Overall: no clubbing 08/02/2013 None Full Exam - General 1994 Musculoskeletal digits and nails Overall: digits benign 08/02/2013 None Full Exam - General 1994 Musculoskeletal spine, ribs and pelvis Overall: ribs benign 08/02/2013 None Full Exam - General 1994 Musculoskeletal spine, ribs and pelvis Posture: lordosis 08/02/2013 None Full Exam - General 1994 Musculoskeletal head and neck Overall: head atraumatic 08/02/2013 None Full Exam - General 1994 Musculoskeletal head and neck Overall: cervical spine benign 08/02/2013 None Full Exam - General 1994 Neurologic gait Overall: no ataxia, no unsteadiness 08/02/2013 None Full Exam - General 1994 Psychiatric orientation/consciousness Overall: oriented to person, place and time 08/02/2013 None Full Exam - General 1994 Psychiatric mood and affect Overall: normal mood and affect 08/02/2013 None Full Exam - General 1994 Psychiatric mood and affect Mood: happy 08/02/2013 None Full Exam - General 1994 Constitutional general appearance Hygiene/Attention to Grooming: poor hygiene 08/02/2013 flakey, greasy appearing hair Full Exam - General 1994 Constitutional general appearance Overall: well developed 07/08/2013 None Full Exam - General 1994 Constitutional general appearance Overall: in no acute distress 07/08/2013 None Full Exam - General 1994 Eyes pupils and irises Overall: pupils equal, round, reactive to light and accomodation 07/08/2013 None Full Exam - General 1994 Ears/Nose/Throat otoscopic exam Overall: external auditory canals clear 07/08/2013 None Full Exam - General 1994 Ears/Nose/Throat otoscopic exam Overall: tympanic membranes clear 07/08/2013 None Full Exam - General 1994 Ears/Nose/Throat oral cavity/pharynx/larynx Overall: oropharyngeal mucosa clear 07/08/2013 None Full Exam - General 1994 Ears/Nose/Throat oral cavity/pharynx/larynx Overall: no masses 07/08/2013 None Full Exam - General 1994 Ears/Nose/Throat oral cavity/pharynx/larynx Oropharynx: a normal exam 07/08/2013 None Full Exam - General 1994 Neck inspection of neck Appearance: surgical scarring 07/08/2013 None Full Exam - General 1994 Respiratory auscultation Overall: breath sounds clear bilaterally 07/08/2013 None Full Exam - General 1994 Respiratory respiratory effort/rhythm Overall: no retractions 07/08/2013 None Full Exam - General 1994 Respiratory respiratory effort/rhythm Overall: normal rate 07/08/2013 None Full Exam - General 1994 Cardiovascular extremities Overall: no clubbing 07/08/2013 None Full Exam - General 1994 Cardiovascular auscultation of heart Overall: regular rate 07/08/2013 None Full Exam - General 1994 Cardiovascular auscultation of heart Overall: normal heart sounds 07/08/2013 None Full Exam - General 1994 Cardiovascular auscultation of heart Overall: no murmurs 07/08/2013 None Full Exam - General 1994 Abdomen abdominal exam Overall: no tenderness 07/08/2013 None Full Exam - General 1994 Abdomen abdominal exam Overall: normal bowel sounds 07/08/2013 None Full Exam - General 1994 Lymphatic neck nodes Overall: anterior cervical chain benign 07/08/2013 None Full Exam - General 1994 Lymphatic neck nodes Overall: posterior cervical chain benign 07/08/2013 None Full Exam - General 1994 Musculoskeletal digits and nails Overall: no clubbing 07/08/2013 None Full Exam - General 1994 Musculoskeletal digits and nails Overall: digits benign 07/08/2013 None Full Exam - General 1994 Musculoskeletal spine, ribs and pelvis Posture: lordosis 07/08/2013 None Full Exam - General 1994 Musculoskeletal head and neck Overall: head atraumatic 07/08/2013 None Full Exam - General 1994 Musculoskeletal head and neck Overall: cervical spine benign 07/08/2013 None Full Exam - General 1994 Integument inspection of skin Overall: few scattered moles, no gross abnormalities 07/08/2013 None Full Exam - General 1994 Neurologic gait Conventional walking: unsteady 07/08/2013 None Full Exam - General 1994 Psychiatric orientation/consciousness Overall: oriented to person, place and time 07/08/2013 None Full Exam - General 1994 Psychiatric mood and affect Overall: normal mood and affect 07/08/2013 None Full Exam - General 1994 Constitutional general appearance Overall: well developed 07/01/2013 None Full Exam - General 1994 Constitutional general appearance Overall: in no acute distress 07/01/2013 None Full Exam - General 1994 Eyes pupils and irises Overall: pupils equal, round, reactive to light and accomodation 07/01/2013 None Full Exam - General 1994 Ears/Nose/Throat otoscopic exam Overall: external auditory canals clear 07/01/2013 None Full Exam - General 1994 Ears/Nose/Throat otoscopic exam Overall: tympanic membranes clear 07/01/2013 None Full Exam - General 1994 Ears/Nose/Throat oral cavity/pharynx/larynx Overall: oropharyngeal mucosa clear 07/01/2013 None Full Exam - General 1994 Ears/Nose/Throat oral cavity/pharynx/larynx Overall: no masses 07/01/2013 None Full Exam - General 1994 Ears/Nose/Throat oral cavity/pharynx/larynx Oropharynx: a normal exam 07/01/2013 None Full Exam - General 1994 Neck inspection of neck Appearance: surgical scarring 07/01/2013 None Full Exam - General 1994 Respiratory auscultation Overall: breath sounds clear bilaterally 07/01/2013 None Full Exam - General 1994 Respiratory respiratory effort/rhythm Overall: no retractions 07/01/2013 None Full Exam - General 1994 Respiratory respiratory effort/rhythm Overall: normal rate 07/01/2013 None Full Exam - General 1994 Cardiovascular extremities Overall: no clubbing 07/01/2013 None Full Exam - General 1994 Cardiovascular auscultation of heart Overall: regular rate 07/01/2013 None Full Exam - General 1994 Cardiovascular auscultation of heart Overall: normal heart sounds 07/01/2013 None Full Exam - General 1994 Cardiovascular auscultation of heart Overall: no murmurs 07/01/2013 None Full Exam - General 1994 Abdomen abdominal exam Overall: no tenderness 07/01/2013 None Full Exam - General 1994 Abdomen abdominal exam Overall: normal bowel sounds 07/01/2013 None Full Exam - General 1994 Lymphatic neck nodes Overall: anterior cervical chain benign 07/01/2013 None Full Exam - General 1994 Lymphatic neck nodes Overall: posterior cervical chain benign 07/01/2013 None Full Exam - General 1994 Musculoskeletal digits and nails Overall: no clubbing 07/01/2013 None Full Exam - General 1994 Musculoskeletal digits and nails Overall: digits benign 07/01/2013 None Full Exam - General 1994 Musculoskeletal spine, ribs and pelvis Posture: lordosis 07/01/2013 None Full Exam - General 1994 Musculoskeletal head and neck Overall: head atraumatic 07/01/2013 None Full Exam - General 1994 Musculoskeletal head and neck Overall: cervical spine benign 07/01/2013 None Full Exam - General 1994 Integument inspection of skin Overall: few scattered moles, no gross abnormalities 07/01/2013 None Full Exam - General 1994 Neurologic gait Conventional walking: unsteady 07/01/2013 None Full Exam - General 1994 Psychiatric orientation/consciousness Overall: oriented to person, place and time 07/01/2013 None Full Exam - General 1994 Psychiatric mood and affect Overall: normal mood and affect 07/01/2013 None Full Exam - General 1994 Constitutional general appearance Overall: well developed 06/21/2013 None Full Exam - General 1994 Constitutional general appearance Overall: in no acute distress 06/21/2013 None Full Exam - General 1994 Constitutional general appearance Overall: well nourished 06/21/2013 None Full Exam - General 1994 Eyes pupils and irises Overall: pupils equal, round, reactive to light and accomodation 06/21/2013 None Full Exam - General 1994 Ears/Nose/Throat otoscopic exam Overall: external auditory canals clear 06/21/2013 None Full Exam - General 1994 Ears/Nose/Throat otoscopic exam Overall: tympanic membranes clear 06/21/2013 None Full Exam - General 1994 Ears/Nose/Throat oral cavity/pharynx/larynx Overall: oropharyngeal mucosa clear 06/21/2013 None Full Exam - General 1994 Ears/Nose/Throat oral cavity/pharynx/larynx Overall: no masses 06/21/2013 None Full Exam - General 1994 Ears/Nose/Throat oral cavity/pharynx/larynx Oral mucosa: dry 06/21/2013 None Full Exam - General 1994 Ears/Nose/Throat oral cavity/pharynx/larynx Oropharynx: a normal exam 06/21/2013 None Full Exam - General 1994 Respiratory auscultation Overall: breath sounds clear bilaterally 06/21/2013 None Full Exam - General 1994 Respiratory respiratory effort/rhythm Overall: no retractions 06/21/2013 None Full Exam - General 1994 Respiratory respiratory effort/rhythm Overall: normal rate 06/21/2013 None Full Exam - General 1994 Cardiovascular auscultation of heart Overall: regular rate 06/21/2013 None Full Exam - General 1994 Cardiovascular auscultation of heart Overall: normal heart sounds 06/21/2013 None Full Exam - General 1994 Cardiovascular auscultation of heart Overall: no murmurs 06/21/2013 None Full Exam - General 1994 Abdomen abdominal exam Overall: no tenderness 06/21/2013 None Full Exam - General 1994 Abdomen abdominal exam Overall: normal bowel sounds 06/21/2013 None Full Exam - General 1994 Musculoskeletal digits and nails Overall: no clubbing 06/21/2013 None Full Exam - General 1994 Musculoskeletal digits and nails Overall: digits benign 06/21/2013 None Full Exam - General 1994 Musculoskeletal spine, ribs and pelvis Overall: ribs benign 06/21/2013 None Full Exam - General 1994 Musculoskeletal spine, ribs and pelvis Posture: lordosis 06/21/2013 None Full Exam - General 1994 Musculoskeletal head and neck Overall: head atraumatic 06/21/2013 None Full Exam - General 1994 Musculoskeletal head and neck Overall: cervical spine benign 06/21/2013 None Full Exam - General 1994 Neurologic gait Overall: no ataxia, no unsteadiness 06/21/2013 None Full Exam - General 1994 Psychiatric orientation/consciousness Overall: oriented to person, place and time 06/21/2013 None Full Exam - General 1994 Psychiatric mood and affect Overall: normal mood and affect 06/21/2013 None Full Exam - General 1994 Psychiatric mood and affect Mood: happy 06/21/2013 None Full Exam - General 1994 Constitutional general appearance Overall: well developed 06/07/2013 None Full Exam - General 1994 Constitutional general appearance Overall: in no acute distress 06/07/2013 None Full Exam - General 1994 Constitutional general appearance Overall: well nourished 06/07/2013 None Full Exam - General 1994 Eyes pupils and irises Overall: pupils equal, round, reactive to light and accomodation 06/07/2013 None Full Exam - General 1994 Ears/Nose/Throat otoscopic exam Overall: external auditory canals clear 06/07/2013 None Full Exam - General 1994 Ears/Nose/Throat otoscopic exam Overall: tympanic membranes clear 06/07/2013 None Full Exam - General 1994 Ears/Nose/Throat oral cavity/pharynx/larynx Overall: oropharyngeal mucosa clear 06/07/2013 None Full Exam - General 1994 Ears/Nose/Throat oral cavity/pharynx/larynx Overall: no masses 06/07/2013 None Full Exam - General 1994 Ears/Nose/Throat oral cavity/pharynx/larynx Oral mucosa: dry 06/07/2013 None Full Exam - General 1994 Ears/Nose/Throat oral cavity/pharynx/larynx Oropharynx: a normal exam 06/07/2013 None Full Exam - General 1994 Neck inspection of neck Appearance: surgical scarring 06/07/2013 None Full Exam - General 1994 Respiratory auscultation Overall: breath sounds clear bilaterally 06/07/2013 None Full Exam - General 1994 Respiratory respiratory effort/rhythm Overall: no retractions 06/07/2013 None Full Exam - General 1994 Respiratory respiratory effort/rhythm Overall: normal rate 06/07/2013 None Full Exam - General 1994 Cardiovascular auscultation of heart Overall: regular rate 06/07/2013 None Full Exam - General 1994 Cardiovascular auscultation of heart Overall: normal heart sounds 06/07/2013 None Full Exam - General 1994 Cardiovascular auscultation of heart Overall: no murmurs 06/07/2013 None Full Exam - General 1994 Abdomen abdominal exam Overall: no tenderness 06/07/2013 None Full Exam - General 1994 Abdomen abdominal exam Overall: normal bowel sounds 06/07/2013 None Full Exam - General 1994 Musculoskeletal digits and nails Overall: no clubbing 06/07/2013 None Full Exam - General 1994 Musculoskeletal digits and nails Overall: digits benign 06/07/2013 None Full Exam - General 1994 Musculoskeletal spine, ribs and pelvis Overall: ribs benign 06/07/2013 None Full Exam - General 1994 Musculoskeletal spine, ribs and pelvis Posture: lordosis 06/07/2013 None Full Exam - General 1994 Musculoskeletal head and neck Overall: head atraumatic 06/07/2013 None Full Exam - General 1994 Musculoskeletal head and neck Overall: cervical spine benign 06/07/2013 None Full Exam - General 1994 Neurologic gait Overall: no ataxia, no unsteadiness 06/07/2013 None Full Exam - General 1994 Psychiatric orientation/consciousness Overall: oriented to person, place and time 06/07/2013 None Full Exam - General 1994 Psychiatric mood and affect Overall: normal mood and affect 06/07/2013 None Full Exam - General 1994 Psychiatric mood and affect Mood: happy 06/07/2013 None Full Exam - General 1994 Constitutional general appearance Overall: well developed 05/17/2013 None Full Exam - General 1994 Constitutional general appearance Overall: in no acute distress 05/17/2013 None Full Exam - General 1994 Eyes pupils and irises Overall: pupils equal, round, reactive to light and accomodation 05/17/2013 None Full Exam - General 1994 Ears/Nose/Throat otoscopic exam Overall: external auditory canals clear 05/17/2013 None Full Exam - General 1994 Ears/Nose/Throat otoscopic exam Overall: tympanic membranes clear 05/17/2013 None Full Exam - General 1994 Ears/Nose/Throat oral cavity/pharynx/larynx Overall: oropharyngeal mucosa clear 05/17/2013 None Full Exam - General 1994 Ears/Nose/Throat oral cavity/pharynx/larynx Overall: no masses 05/17/2013 None Full Exam - General 1994 Ears/Nose/Throat oral cavity/pharynx/larynx Oropharynx: a normal exam 05/17/2013 None Full Exam - General 1994 Neck inspection of neck Appearance: surgical scarring 05/17/2013 None Full Exam - General 1994 Respiratory auscultation Overall: breath sounds clear bilaterally 05/17/2013 None Full Exam - General 1994 Respiratory respiratory effort/rhythm Overall: no retractions 05/17/2013 None Full Exam - General 1994 Respiratory respiratory effort/rhythm Overall: normal rate 05/17/2013 None Full Exam - General 1994 Cardiovascular auscultation of heart Overall: regular rate 05/17/2013 None Full Exam - General 1994 Cardiovascular auscultation of heart Overall: normal heart sounds 05/17/2013 None Full Exam - General 1994 Cardiovascular auscultation of heart Overall: no murmurs 05/17/2013 None Full Exam - General 1994 Abdomen abdominal exam Overall: no tenderness 05/17/2013 None Full Exam - General 1994 Abdomen abdominal exam Overall: normal bowel sounds 05/17/2013 None Full Exam - General 1994 Musculoskeletal digits and nails Overall: no clubbing 05/17/2013 None Full Exam - General 1994 Musculoskeletal digits and nails Overall: digits benign 05/17/2013 None Full Exam - General 1994 Musculoskeletal spine, ribs and pelvis Posture: lordosis 05/17/2013 None Full Exam - General 1994 Musculoskeletal head and neck Overall: head atraumatic 05/17/2013 None Full Exam - General 1994 Musculoskeletal head and neck Overall: cervical spine benign 05/17/2013 None Full Exam - General 1994 Psychiatric orientation/consciousness Overall: oriented to person, place and time 05/17/2013 None Full Exam - General 1994 Psychiatric mood and affect Overall: normal mood and affect 05/17/2013 None Full Exam - General 1994 Neurologic gait Conventional walking: unsteady 05/17/2013 None Full Exam - General 1994 Lymphatic neck nodes Overall: anterior cervical chain benign 05/17/2013 None Full Exam - General 1994 Lymphatic neck nodes Overall: posterior cervical chain benign 05/17/2013 None Full Exam - General 1994 Cardiovascular extremities Overall: no clubbing 05/17/2013 None Full Exam - General 1994 Integument inspection of skin Overall: few scattered moles, no gross abnormalities 05/17/2013 None Full Exam - General 1994 Constitutional general appearance Overall: well developed 04/29/2013 None Full Exam - General 1994 Constitutional general appearance Overall: in no acute distress 04/29/2013 None Full Exam - General 1994 Constitutional general appearance Overall: well nourished 04/29/2013 None Full Exam - General 1994 Eyes pupils and irises Overall: pupils equal, round, reactive to light and accomodation 04/29/2013 None Full Exam - General 1994 Ears/Nose/Throat otoscopic exam Overall: external auditory canals clear 04/29/2013 None Full Exam - General 1994 Ears/Nose/Throat otoscopic exam Overall: tympanic membranes clear 04/29/2013 None Full Exam - General 1994 Ears/Nose/Throat oral cavity/pharynx/larynx Overall: oropharyngeal mucosa clear 04/29/2013 None Full Exam - General 1994 Ears/Nose/Throat oral cavity/pharynx/larynx Overall: no masses 04/29/2013 None Full Exam - General 1994 Ears/Nose/Throat oral cavity/pharynx/larynx Oral mucosa: dry 04/29/2013 None Full Exam - General 1994 Ears/Nose/Throat oral cavity/pharynx/larynx Oropharynx: a normal exam 04/29/2013 None Full Exam - General 1994 Neck inspection of neck Appearance: surgical scarring 04/29/2013 None Full Exam - General 1994 Respiratory auscultation Overall: breath sounds clear bilaterally 04/29/2013 None Full Exam - General 1994 Respiratory respiratory effort/rhythm Overall: no retractions 04/29/2013 None Full Exam - General 1994 Respiratory respiratory effort/rhythm Overall: normal rate 04/29/2013 None Full Exam - General 1994 Cardiovascular auscultation of heart Overall: regular rate 04/29/2013 None Full Exam - General 1994 Cardiovascular auscultation of heart Overall: normal heart sounds 04/29/2013 None Full Exam - General 1994 Cardiovascular auscultation of heart Overall: no murmurs 04/29/2013 None Full Exam - General 1994 Abdomen abdominal exam Overall: no tenderness 04/29/2013 None Full Exam - General 1994 Abdomen abdominal exam Overall: normal bowel sounds 04/29/2013 None Full Exam - General 1994 Musculoskeletal digits and nails Overall: no clubbing 04/29/2013 None Full Exam - General 1994 Musculoskeletal digits and nails Overall: digits benign 04/29/2013 None Full Exam - General 1994 Musculoskeletal spine, ribs and pelvis Overall: ribs benign 04/29/2013 None Full Exam - General 1994 Musculoskeletal spine, ribs and pelvis Posture: lordosis 04/29/2013 None Full Exam - General 1994 Musculoskeletal head and neck Overall: head atraumatic 04/29/2013 None Full Exam - General 1994 Musculoskeletal head and neck Overall: cervical spine benign 04/29/2013 None Full Exam - General 1994 Neurologic gait Overall: no ataxia, no unsteadiness 04/29/2013 None Full Exam - General 1994 Psychiatric orientation/consciousness Overall: oriented to person, place and time 04/29/2013 None Full Exam - General 1994 Psychiatric mood and affect Overall: normal mood and affect 04/29/2013 None Full Exam - General 1994 Psychiatric mood and affect Mood: happy 04/29/2013 None Full Exam - General 1994 Neurologic sensation Touch: (specify location of deficit): light touch bilateral feet sensation decreased 2013 None Full Exam - General 1994 Neurologic sensation Touch: (specify location of deficit): decreased 04/29/2013 None Full Exam - General 1994 Musculoskeletal head and neck Overall: cervical spine benign 03/26/2013 None Full Exam - General 1994 Neurologic gait Overall: no ataxia, no unsteadiness 03/26/2013 None Full Exam - General 1994 Psychiatric orientation/consciousness Overall: oriented to person, place and time 03/26/2013 None Full Exam - General 1994 Psychiatric mood and affect Overall: normal mood and affect 03/26/2013 None Full Exam - General 1994 Psychiatric mood and affect Mood: happy 03/26/2013 None Full Exam - General 1994 Constitutional general appearance Overall: well developed 03/26/2013 None Full Exam - General 1994 Constitutional general appearance Overall: in no acute distress 03/26/2013 None Full Exam - General 1994 Constitutional general appearance Overall: well nourished 03/26/2013 None Full Exam - General 1994 Eyes pupils and irises Overall: pupils equal, round, reactive to light and accomodation 03/26/2013 None Full Exam - General 1994 Ears/Nose/Throat otoscopic exam Overall: external auditory canals clear 03/26/2013 None Full Exam - General 1994 Ears/Nose/Throat otoscopic exam Overall: tympanic membranes clear 03/26/2013 None Full Exam - General 1994 Ears/Nose/Throat oral cavity/pharynx/larynx Overall: oropharyngeal mucosa clear 03/26/2013 None Full Exam - General 1994 Ears/Nose/Throat oral cavity/pharynx/larynx Overall: no masses 03/26/2013 None Full Exam - General 1994 Ears/Nose/Throat oral cavity/pharynx/larynx Oral mucosa: dry 03/26/2013 None Full Exam - General 1994 Ears/Nose/Throat oral cavity/pharynx/larynx Oropharynx: a normal exam 03/26/2013 None Full Exam - General 1994 Neck inspection of neck Appearance: surgical scarring 03/26/2013 None Full Exam - General 1994 Respiratory auscultation Overall: breath sounds clear bilaterally 03/26/2013 None Full Exam - General 1994 Respiratory respiratory effort/rhythm Overall: no retractions 03/26/2013 None Full Exam - General 1994 Respiratory respiratory effort/rhythm Overall: normal rate 03/26/2013 None Full Exam - General 1994 Cardiovascular auscultation of heart Overall: regular rate 03/26/2013 None Full Exam - General 1994 Cardiovascular auscultation of heart Overall: normal heart sounds 03/26/2013 None Full Exam - General 1994 Cardiovascular auscultation of heart Overall: no murmurs 03/26/2013 None Full Exam - General 1994 Abdomen abdominal exam Overall: no tenderness 03/26/2013 None Full Exam - General 1994 Abdomen abdominal exam Overall: normal bowel sounds 03/26/2013 None Full Exam - General 1994 Musculoskeletal digits and nails Overall: no clubbing 03/26/2013 None Full Exam - General 1994 Musculoskeletal digits and nails Overall: digits benign 03/26/2013 None Full Exam - General 1994 Musculoskeletal spine, ribs and pelvis Overall: ribs benign 03/26/2013 None Full Exam - General 1994 Musculoskeletal spine, ribs and pelvis Posture: lordosis 03/26/2013 None Full Exam - General 1994 Musculoskeletal head and neck Overall: head atraumatic 03/26/2013 None Full Exam - General 1994 Constitutional general appearance Overall: well developed 03/16/2013 None Full Exam - General 1994 Constitutional general appearance Overall: in no acute distress 03/16/2013 None Full Exam - General 1994 Cardiovascular auscultation of heart Overall: normal heart sounds 03/16/2013 None Full Exam - General 1994 Cardiovascular auscultation of heart Overall: no murmurs 03/16/2013 None Full Exam - General 1994 Abdomen abdominal exam Overall: no tenderness 03/16/2013 None Full Exam - General 1994 Abdomen abdominal exam Overall: normal bowel sounds 03/16/2013 None Full Exam - General 1994 Musculoskeletal digits and nails Overall: no clubbing 03/16/2013 None Full Exam - General 1994 Musculoskeletal digits and nails Overall: digits benign 03/16/2013 None Full Exam - General 1994 Musculoskeletal spine, ribs and pelvis Overall: ribs benign 03/16/2013 None Full Exam - General 1994 Musculoskeletal spine, ribs and pelvis Posture: lordosis 03/16/2013 None Full Exam - General 1994 Musculoskeletal head and neck Overall: head atraumatic 03/16/2013 None Full Exam - General 1994 Musculoskeletal head and neck Overall: cervical spine benign 03/16/2013 None Full Exam - General 1994 Neurologic gait Overall: no ataxia, no unsteadiness 03/16/2013 None Full Exam - General 1994 Psychiatric orientation/consciousness Overall: oriented to person, place and time 03/16/2013 None Full Exam - General 1994 Psychiatric mood and affect Overall: normal mood and affect 03/16/2013 None Full Exam - General 1994 Psychiatric mood and affect Mood: happy 03/16/2013 None Full Exam - General 1994 Constitutional general appearance Overall: well nourished 03/16/2013 None Full Exam - General 1994 Eyes pupils and irises Overall: pupils equal, round, reactive to light and accomodation 03/16/2013 None Full Exam - General 1994 Ears/Nose/Throat otoscopic exam Overall: external auditory canals clear 03/16/2013 None Full Exam - General 1994 Ears/Nose/Throat otoscopic exam Overall: tympanic membranes clear 03/16/2013 None Full Exam - General 1994 Ears/Nose/Throat oral cavity/pharynx/larynx Overall: oropharyngeal mucosa clear 03/16/2013 None Full Exam - General 1994 Ears/Nose/Throat oral cavity/pharynx/larynx Overall: no masses 03/16/2013 None Full Exam - General 1994 Ears/Nose/Throat oral cavity/pharynx/larynx Oral mucosa: dry 03/16/2013 None Full Exam - General 1994 Ears/Nose/Throat oral cavity/pharynx/larynx Oropharynx: a normal exam 03/16/2013 None Full Exam - General 1994 Neck inspection of neck Appearance: surgical scarring 03/16/2013 None Full Exam - General 1994 Respiratory auscultation Overall: breath sounds clear bilaterally 03/16/2013 None Full Exam - General 1994 Respiratory respiratory effort/rhythm Overall: no retractions 03/16/2013 None Full Exam - General 1994 Respiratory respiratory effort/rhythm Overall: normal rate 03/16/2013 None Full Exam - General 1994 Cardiovascular auscultation of heart Overall: regular rate 03/16/2013 None Full Exam - General 1994 Constitutional general appearance Overall: well developed 03/09/2013 None Full Exam - General 1994 Constitutional general appearance Overall: in no acute distress 03/09/2013 None Full Exam - General 1994 Constitutional general appearance Overall: well nourished 03/09/2013 None Full Exam - General 1994 Eyes pupils and irises Overall: pupils equal, round, reactive to light and accomodation 03/09/2013 None Full Exam - General 1994 Ears/Nose/Throat otoscopic exam Overall: external auditory canals clear 03/09/2013 None Full Exam - General 1994 Ears/Nose/Throat otoscopic exam Overall: tympanic membranes clear 03/09/2013 None Full Exam - General 1994 Ears/Nose/Throat oral cavity/pharynx/larynx Overall: oropharyngeal mucosa clear 03/09/2013 None Full Exam - General 1994 Ears/Nose/Throat oral cavity/pharynx/larynx Overall: no masses 03/09/2013 None Full Exam - General 1994 Ears/Nose/Throat oral cavity/pharynx/larynx Oral mucosa: dry 03/09/2013 None Full Exam - General 1994 Ears/Nose/Throat oral cavity/pharynx/larynx Oropharynx: thrush 03/09/2013 None Full Exam - General 1994 Neck inspection of neck Appearance: surgical scarring 03/09/2013 healing incisions Full Exam - General 1994 Respiratory auscultation Overall: breath sounds clear bilaterally 03/09/2013 None Full Exam - General 1994 Respiratory respiratory effort/rhythm Overall: no retractions 03/09/2013 None Full Exam - General 1994 Respiratory respiratory effort/rhythm Overall: normal rate 03/09/2013 None Full Exam - General 1994 Cardiovascular auscultation of heart Overall: regular rate 03/09/2013 None Full Exam - General 1994 Cardiovascular auscultation of heart Overall: normal heart sounds 03/09/2013 None Full Exam - General 1994 Cardiovascular auscultation of heart Overall: no murmurs 03/09/2013 None Full Exam - General 1994 Abdomen abdominal exam Overall: no tenderness 03/09/2013 None Full Exam - General 1994 Abdomen abdominal exam Overall: normal bowel sounds 03/09/2013 None Full Exam - General 1994 Musculoskeletal digits and nails Overall: no clubbing 03/09/2013 None Full Exam - General 1994 Musculoskeletal digits and nails Overall: digits benign 03/09/2013 None Full Exam - General 1994 Musculoskeletal spine, ribs and pelvis Overall: ribs benign 03/09/2013 None Full Exam - General 1994 Musculoskeletal spine, ribs and pelvis Posture: lordosis 03/09/2013 None Full Exam - General 1994 Musculoskeletal head and neck Overall: head atraumatic 03/09/2013 None Full Exam - General 1994 Musculoskeletal head and neck Overall: cervical spine benign 03/09/2013 None Full Exam - General 1994 Neurologic gait Overall: no ataxia, no unsteadiness 03/09/2013 None Full Exam - General 1994 Psychiatric orientation/consciousness Overall: oriented to person, place and time 03/09/2013 None Full Exam - General 1994 Psychiatric mood and affect Overall: normal mood and affect 03/09/2013 None Full Exam - General 1994 Psychiatric mood and affect Mood: happy 03/09/2013 None Full Exam - General 1994 Constitutional general appearance Overall: well developed 12/11/2012 None Full Exam - General 1994 Constitutional general appearance Overall: in no acute distress 12/11/2012 None Full Exam - General 1994 Constitutional general appearance Overall: well nourished 12/11/2012 None Full Exam - General 1994 Eyes pupils and irises Overall: pupils equal, round, reactive to light and accomodation 12/11/2012 None Full Exam - General 1994 Ears/Nose/Throat otoscopic exam Overall: external auditory canals clear 12/11/2012 None Full Exam - General 1994 Ears/Nose/Throat otoscopic exam Overall: tympanic membranes clear 12/11/2012 None Full Exam - General 1994 Ears/Nose/Throat oral cavity/pharynx/larynx Overall: oropharyngeal mucosa clear 12/11/2012 None Full Exam - General 1994 Ears/Nose/Throat oral cavity/pharynx/larynx Overall: no masses 12/11/2012 None Full Exam - General 1994 Ears/Nose/Throat oral cavity/pharynx/larynx Oral mucosa: dry 12/11/2012 None Full Exam - General 1994 Ears/Nose/Throat oral cavity/pharynx/larynx Oropharynx: a normal exam 12/11/2012 None Full Exam - General 1994 Neck inspection of neck Appearance: surgical scarring 12/11/2012 None Full Exam - General 1994 Respiratory auscultation Overall: breath sounds clear bilaterally 12/11/2012 None Full Exam - General 1994 Respiratory respiratory effort/rhythm Overall: no retractions 12/11/2012 None Full Exam - General 1994 Respiratory respiratory effort/rhythm Overall: normal rate 12/11/2012 None Full Exam - General 1994 Cardiovascular auscultation of heart Overall: regular rate 12/11/2012 None Full Exam - General 1994 Cardiovascular auscultation of heart Overall: normal heart sounds 12/11/2012 None Full Exam - General 1994 Cardiovascular auscultation of heart Overall: no murmurs 12/11/2012 None Full Exam - General 1994 Abdomen abdominal exam Overall: no tenderness 12/11/2012 None Full Exam - General 1994 Abdomen abdominal exam Overall: normal bowel sounds 12/11/2012 None Full Exam - General 1994 Musculoskeletal digits and nails Overall: no clubbing 12/11/2012 None Full Exam - General 1994 Musculoskeletal digits and nails Overall: digits benign 12/11/2012 None Full Exam - General 1994 Musculoskeletal spine, ribs and pelvis Overall: ribs benign 12/11/2012 None Full Exam - General 1994 Musculoskeletal spine, ribs and pelvis Posture: lordosis 12/11/2012 None Full Exam - General 1994 Musculoskeletal head and neck Overall: head atraumatic 12/11/2012 None Full Exam - General 1994 Musculoskeletal head and neck Overall: cervical spine benign 12/11/2012 None Full Exam - General 1994 Neurologic gait Overall: no ataxia, no unsteadiness 12/11/2012 None Full Exam - General 1994 Psychiatric orientation/consciousness Overall: oriented to person, place and time 12/11/2012 None Full Exam - General 1994 Psychiatric mood and affect Overall: normal mood and affect 12/11/2012 None Full Exam - General 1994 Psychiatric mood and affect Mood: happy 12/11/2012 None Full Exam - General 1994 Ears/Nose/Throat lips/teeth/gingiva Gingiva: lesion 12/11/2012 erythema and swelling right lower gums Full Exam - General 1994 Constitutional general appearance Overall: well developed 11/24/2012 None Full Exam - General 1995 Constitutional general appearance Overall: in no acute distress 11/24/2012 None Full Exam - General 1994 Constitutional general appearance Overall: well nourished 11/24/2012 None Full Exam - General 1994 Eyes pupils and irises Overall: pupils equal, round, reactive to light and accomodation 11/24/2012 None Full Exam - General 1995 Ears/Nose/Throat otoscopic exam Overall: external auditory canals clear 11/24/2012 None Full Exam - General 1995 Ears/Nose/Throat otoscopic exam Overall: tympanic membranes clear 11/24/2012 None Full Exam - General 1995 Ears/Nose/Throat oral cavity/pharynx/larynx Overall: oropharyngeal mucosa clear 11/24/2012 None Full Exam - General 1995 Ears/Nose/Throat oral cavity/pharynx/larynx Overall: no masses 11/24/2012 None Full Exam - General 1995 Ears/Nose/Throat oral cavity/pharynx/larynx Oral mucosa: dry 11/24/2012 None Full Exam - General 1994 Ears/Nose/Throat oral cavity/pharynx/larynx Oropharynx: a normal exam 11/24/2012 None Full Exam - General 1994 Neck inspection of neck Appearance: surgical scarring 11/24/2012 None Full Exam - General 1994 Respiratory auscultation Overall: breath sounds clear bilaterally 11/24/2012 None Full Exam - General 1994 Respiratory respiratory effort/rhythm Overall: no retractions 11/24/2012 None Full Exam - General 1994 Respiratory respiratory effort/rhythm Overall: normal rate 11/24/2012 None Full Exam - General 1994 Cardiovascular auscultation of heart Overall: regular rate 11/24/2012 None Full Exam - General 1994 Cardiovascular auscultation of heart Overall: normal heart sounds 11/24/2012 None Full Exam - General 1994 Cardiovascular auscultation of heart Overall: no murmurs 11/24/2012 None Full Exam - General 1994 Abdomen abdominal exam Overall: no tenderness 11/24/2012 None Full Exam - General 1994 Abdomen abdominal exam Overall: normal bowel sounds 11/24/2012 None Full Exam - General 1994 Musculoskeletal digits and nails Overall: no clubbing 11/24/2012 None Full Exam - General 1994 Musculoskeletal digits and nails Overall: digits benign 11/24/2012 None Full Exam - General 1994 Musculoskeletal spine, ribs and pelvis Overall: ribs benign 11/24/2012 None Full Exam - General 1994 Musculoskeletal spine, ribs and pelvis Posture: lordosis 11/24/2012 None Full Exam - General 1995 Musculoskeletal head and neck Overall: head atraumatic 11/24/2012 None Full Exam - General 1994 Musculoskeletal head and neck Overall: cervical spine benign 11/24/2012 None Full Exam - General 1994 Neurologic gait Overall: no ataxia, no unsteadiness 11/24/2012 None Full Exam - General 1994 Psychiatric orientation/consciousness Overall: oriented to person, place and time 11/24/2012 None Full Exam - General 1994 Psychiatric mood and affect Overall: normal mood and affect 11/24/2012 None Full Exam - General 1995 Psychiatric mood and affect Mood: happy 11/24/2012 None Full Exam - General 1995 Constitutional general appearance Overall: well developed 10/13/2012 None Full Exam - General 1994 Constitutional general appearance Overall: in no acute distress 10/13/2012 None Full Exam - General 1994 Constitutional general appearance Overall: well nourished 10/13/2012 None Full Exam - General 1994 Eyes pupils and irises Overall: pupils equal, round, reactive to light and accomodation 10/13/2012 None Full Exam - General 1995 Ears/Nose/Throat otoscopic exam Overall: external auditory canals clear 10/13/2012 None Full Exam - General 1995 Ears/Nose/Throat otoscopic exam Overall: tympanic membranes clear 10/13/2012 None Full Exam - General 1995 Ears/Nose/Throat oral cavity/pharynx/larynx Overall: oropharyngeal mucosa clear 10/13/2012 None Full Exam - General 1995 Ears/Nose/Throat oral cavity/pharynx/larynx Overall: no masses 10/13/2012 None Full Exam - General 1994 Ears/Nose/Throat oral cavity/pharynx/larynx Oral mucosa: dry 10/13/2012 None Full Exam - General 1995 Ears/Nose/Throat oral cavity/pharynx/larynx Oropharynx: a normal exam 10/13/2012 None Full Exam - General 1994 Neck inspection of neck Appearance: surgical scarring 10/13/2012 None Full Exam - General 1994 Respiratory auscultation Overall: breath sounds clear bilaterally 10/13/2012 None Full Exam - General 1994 Respiratory respiratory effort/rhythm Overall: no retractions 10/13/2012 None Full Exam - General 1994 Respiratory respiratory effort/rhythm Overall: normal rate 10/13/2012 None Full Exam - General 1994 Cardiovascular auscultation of heart Overall: regular rate 10/13/2012 None Full Exam - General 1995 Cardiovascular auscultation of heart Overall: normal heart sounds 10/13/2012 None Full Exam - General 1994 Cardiovascular auscultation of heart Overall: no murmurs 10/13/2012 None Full Exam - General 1995 Abdomen abdominal exam Overall: no tenderness 10/13/2012 None Full Exam - General 1995 Abdomen abdominal exam Overall: normal bowel sounds 10/13/2012 None Full Exam - General 1995 Musculoskeletal digits and nails Overall: no clubbing 10/13/2012 None Full Exam - General 1995 Musculoskeletal digits and nails Overall: digits benign 10/13/2012 None Full Exam - General 1995 Musculoskeletal spine, ribs and pelvis Overall: ribs benign 10/13/2012 None Full Exam - General 1995 Musculoskeletal spine, ribs and pelvis Posture: lordosis 10/13/2012 None Full Exam - General 1995 Musculoskeletal head and neck Overall: head atraumatic 10/13/2012 None Full Exam - General 1994 Musculoskeletal head and neck Overall: cervical spine benign 10/13/2012 None Full Exam - General 1994 Neurologic gait Overall: no ataxia, no unsteadiness 10/13/2012 None Full Exam - General 1994 Psychiatric orientation/consciousness Overall: oriented to person, place and time 10/13/2012 None Full Exam - General 1994 Psychiatric mood and affect Overall: normal mood and affect 10/13/2012 None Full Exam - General 1995 Psychiatric mood and affect Mood: happy 10/13/2012 None Full Exam - General 1994 Constitutional general appearance Overall: well developed 09/17/2012 None Full Exam - General 1994 Constitutional general appearance Overall: in no acute distress 09/17/2012 None Full Exam - General 1994 Constitutional general appearance Overall: well nourished 09/17/2012 None Full Exam - General 1994 Eyes pupils and irises Overall: pupils equal, round, reactive to light and accomodation 09/17/2012 None Full Exam - General 1994 Ears/Nose/Throat otoscopic exam Overall: external auditory canals clear 09/17/2012 None Full Exam - General 1995 Ears/Nose/Throat otoscopic exam Overall: tympanic membranes clear 09/17/2012 None Full Exam - General 1995 Ears/Nose/Throat oral cavity/pharynx/larynx Overall: oropharyngeal mucosa clear 09/17/2012 None Full Exam - General 1995 Ears/Nose/Throat oral cavity/pharynx/larynx Overall: no masses 09/17/2012 None Full Exam - General 1995 Ears/Nose/Throat oral cavity/pharynx/larynx Oral mucosa: dry 09/17/2012 None Full Exam - General 1995 Ears/Nose/Throat oral cavity/pharynx/larynx Oropharynx: a normal exam 09/17/2012 None Full Exam - General 1995 Neck inspection of neck Appearance: surgical scarring 09/17/2012 None Full Exam - General 1995 Respiratory auscultation Overall: breath sounds clear bilaterally 09/17/2012 None Full Exam - General 1995 Respiratory respiratory effort/rhythm Overall: no retractions 09/17/2012 None Full Exam - General 1995 Respiratory respiratory effort/rhythm Overall: normal rate 09/17/2012 None Full Exam - General 1995 Cardiovascular auscultation of heart Overall: regular rate 09/17/2012 None Full Exam - General 1995 Cardiovascular auscultation of heart Overall: normal heart sounds 09/17/2012 None Full Exam - General 1995 Cardiovascular auscultation of heart Overall: no murmurs 09/17/2012 None Full Exam - General 1995 Abdomen abdominal exam Overall: no tenderness 09/17/2012 None Full Exam - General 1995 Abdomen abdominal exam Overall: normal bowel sounds 09/17/2012 None Full Exam - General 1995 Musculoskeletal digits and nails Overall: no clubbing 09/17/2012 None Full Exam - General 1995 Musculoskeletal digits and nails Overall: digits benign 09/17/2012 None Full Exam - General 1995 Musculoskeletal spine, ribs and pelvis Overall: ribs benign 09/17/2012 None Full Exam - General 1995 Musculoskeletal spine, ribs and pelvis Posture: lordosis 09/17/2012 None Full Exam - General 1994 Musculoskeletal head and neck Overall: head atraumatic 09/17/2012 None Full Exam - General 1994 Musculoskeletal head and neck Overall: cervical spine benign 09/17/2012 None Full Exam - General 1994 Neurologic gait Overall: no ataxia, no unsteadiness 09/17/2012 None Full Exam - General 1994 Psychiatric orientation/consciousness Overall: oriented to person, place and time 09/17/2012 None Full Exam - General 1994 Psychiatric mood and affect Overall: normal mood and affect 09/17/2012 None Full Exam - General 1994 Psychiatric mood and affect Mood: happy 09/17/2012 None Full Exam - General 1994 Constitutional general appearance Overall: well developed 06/25/2012 None Full Exam - General 1994 Constitutional general appearance Overall: in no acute distress 06/25/2012 None Full Exam - General 1994 Constitutional general appearance Overall: well nourished 06/25/2012 None Full Exam - General 1994 Eyes pupils and irises Overall: pupils equal, round, reactive to light and accomodation 06/25/2012 None Full Exam - General 1995 Ears/Nose/Throat otoscopic exam Overall: external auditory canals clear 06/25/2012 None Full Exam - General 1995 Ears/Nose/Throat otoscopic exam Overall: tympanic membranes clear 06/25/2012 None Full Exam - General 1995 Ears/Nose/Throat oral cavity/pharynx/larynx Overall: oropharyngeal mucosa clear 06/25/2012 None Full Exam - General 1995 Ears/Nose/Throat oral cavity/pharynx/larynx Overall: no masses 06/25/2012 None Full Exam - General 1995 Ears/Nose/Throat oral cavity/pharynx/larynx Oral mucosa: dry 06/25/2012 None Full Exam - General 1994 Ears/Nose/Throat oral cavity/pharynx/larynx Oropharynx: a normal exam 06/25/2012 None Full Exam - General 1994 Neck inspection of neck Appearance: surgical scarring 06/25/2012 None Full Exam - General 1994 Respiratory auscultation Overall: breath sounds clear bilaterally 06/25/2012 None Full Exam - General 1994 Respiratory respiratory effort/rhythm Overall: no retractions 06/25/2012 None Full Exam - General 1994 Respiratory respiratory effort/rhythm Overall: normal rate 06/25/2012 None Full Exam - General 1994 Cardiovascular auscultation of heart Overall: regular rate 06/25/2012 None Full Exam - General 1994 Cardiovascular auscultation of heart Overall: normal heart sounds 06/25/2012 None Full Exam - General 1994 Cardiovascular auscultation of heart Overall: no murmurs 06/25/2012 None Full Exam - General 1994 Abdomen abdominal exam Overall: no tenderness 06/25/2012 None Full Exam - General 1994 Abdomen abdominal exam Overall: normal bowel sounds 06/25/2012 None Full Exam - General 1994 Musculoskeletal digits and nails Overall: no clubbing 06/25/2012 None Full Exam - General 1994 Musculoskeletal digits and nails Overall: digits benign 06/25/2012 None Full Exam - General 1994 Musculoskeletal spine, ribs and pelvis Overall: ribs benign 06/25/2012 None Full Exam - General 1994 Musculoskeletal spine, ribs and pelvis Posture: lordosis 06/25/2012 None Full Exam - General 1994 Musculoskeletal head and neck Overall: head atraumatic 06/25/2012 None Full Exam - General 1995 Musculoskeletal head and neck Overall: cervical spine benign 06/25/2012 None Full Exam - General 1994 Neurologic gait Overall: no ataxia, no unsteadiness 06/25/2012 None Full Exam - General 1994 Psychiatric orientation/consciousness Overall: oriented to person, place and time 06/25/2012 None Full Exam - General 1995 Psychiatric mood and affect Overall: normal mood and affect 06/25/2012 None Full Exam - General 1994 Psychiatric mood and affect Mood: happy 06/25/2012 None Full Exam - General 1995 Constitutional general appearance Overall: well developed 06/15/2012 None Full Exam - General 1995 Constitutional general appearance Overall: in no acute distress 06/15/2012 None Full Exam - General 1994 Constitutional general appearance Overall: well nourished 06/15/2012 None Full Exam - General 1994 Eyes pupils and irises Overall: pupils equal, round, reactive to light and accomodation 06/15/2012 None Full Exam - General 1994 Ears/Nose/Throat otoscopic exam Overall: external auditory canals clear 06/15/2012 None Full Exam - General 1994 Ears/Nose/Throat otoscopic exam Overall: tympanic membranes clear 06/15/2012 None Full Exam - General 1994 Ears/Nose/Throat oral cavity/pharynx/larynx Overall: oropharyngeal mucosa clear 06/15/2012 None Full Exam - General 1995 Ears/Nose/Throat oral cavity/pharynx/larynx Overall: no masses 06/15/2012 None Full Exam - General 1994 Respiratory auscultation Overall: breath sounds clear bilaterally 06/15/2012 None Full Exam - General 1994 Respiratory respiratory effort/rhythm Overall: no retractions 06/15/2012 None Full Exam - General 1994 Respiratory respiratory effort/rhythm Overall: normal rate 06/15/2012 None Full Exam - General 1994 Cardiovascular auscultation of heart Overall: regular rate 06/15/2012 None Full Exam - General 1994 Cardiovascular auscultation of heart Overall: normal heart sounds 06/15/2012 None Full Exam - General 1994 Cardiovascular auscultation of heart Overall: no murmurs 06/15/2012 None Full Exam - General 1994 Abdomen abdominal exam Overall: no tenderness 06/15/2012 None Full Exam - General 1994 Abdomen abdominal exam Overall: normal bowel sounds 06/15/2012 None Full Exam - General 1994 Musculoskeletal digits and nails Overall: no clubbing 06/15/2012 None Full Exam - General 1994 Musculoskeletal digits and nails Overall: digits benign 06/15/2012 None Full Exam - General 1994 Musculoskeletal spine, ribs and pelvis Overall: ribs benign 06/15/2012 None Full Exam - General 1994 Musculoskeletal spine, ribs and pelvis Posture: lordosis 06/15/2012 None Full Exam - General 1994 Musculoskeletal head and neck Overall: head atraumatic 06/15/2012 None Full Exam - General 1994 Musculoskeletal head and neck Overall: cervical spine benign 06/15/2012 None Full Exam - General 1994 Neurologic gait Overall: no ataxia, no unsteadiness 06/15/2012 None Full Exam - General 1994 Psychiatric orientation/consciousness Overall: oriented to person, place and time 06/15/2012 None Full Exam - General 1994 Psychiatric mood and affect Overall: normal mood and affect 06/15/2012 None Full Exam - General 1994 Psychiatric mood and affect Mood: happy 06/15/2012 None Full Exam - General 1994 Respiratory respiratory effort/rhythm Overall: normal rate 05/12/2012 None Full Exam - General 1994 Cardiovascular auscultation of heart Overall: regular rate 05/12/2012 None Full Exam - General 1994 Cardiovascular auscultation of heart Overall: normal heart sounds 05/12/2012 None Full Exam - General 1994 Cardiovascular auscultation of heart Overall: no murmurs 05/12/2012 None Full Exam - General 1994 Abdomen abdominal exam Overall: no tenderness 05/12/2012 None Full Exam - General 1994 Abdomen abdominal exam Overall: normal bowel sounds 05/12/2012 None Full Exam - General 1994 Musculoskeletal digits and nails Overall: no clubbing 05/12/2012 None Full Exam - General 1994 Musculoskeletal digits and nails Overall: digits benign 05/12/2012 None Full Exam - General 1994 Musculoskeletal spine, ribs and pelvis Overall: ribs benign 05/12/2012 None Full Exam - General 1994 Musculoskeletal spine, ribs and pelvis Posture: lordosis 05/12/2012 None Full Exam - General 1994 Musculoskeletal head and neck Overall: head atraumatic 05/12/2012 None Full Exam - General 1994 Musculoskeletal head and neck Overall: cervical spine benign 05/12/2012 None Full Exam - General 1994 Neurologic gait Overall: no ataxia, no unsteadiness 05/12/2012 None Full Exam - General 1994 Psychiatric orientation/consciousness Overall: oriented to person, place and time 05/12/2012 None Full Exam - General 1994 Constitutional general appearance Overall: well developed 05/12/2012 None Full Exam - General 1994 Constitutional general appearance Overall: in no acute distress 05/12/2012 None Full Exam - General 1994 Constitutional general appearance Overall: well nourished 05/12/2012 None Full Exam - General 1994 Eyes pupils and irises Overall: pupils equal, round, reactive to light and accomodation 05/12/2012 None Full Exam - General 1994 Ears/Nose/Throat otoscopic exam Overall: external auditory canals clear 05/12/2012 None Full Exam - General 1995 Ears/Nose/Throat otoscopic exam Overall: tympanic membranes clear 05/12/2012 None Full Exam - General 1995 Ears/Nose/Throat oral cavity/pharynx/larynx Overall: oropharyngeal mucosa clear 05/12/2012 None Full Exam - General 1995 Ears/Nose/Throat oral cavity/pharynx/larynx Overall: no masses 05/12/2012 None Full Exam - General 1994 Ears/Nose/Throat oral cavity/pharynx/larynx Oral mucosa: dry 05/12/2012 None Full Exam - General 1994 Respiratory auscultation Overall: breath sounds clear bilaterally 05/12/2012 None Full Exam - General 1994 Respiratory respiratory effort/rhythm Overall: no retractions 05/12/2012 None Full Exam - General 1994 Psychiatric mood and affect Overall: normal mood and affect 05/12/2012 None Full Exam - General 1994 Psychiatric mood and affect Mood: happy 05/12/2012 None Full Exam - General 1994 Neck inspection of neck Appearance: surgical scarring 05/12/2012 None Full Exam - General 1994 Ears/Nose/Throat oral cavity/pharynx/larynx Oropharynx: a normal exam 05/12/2012 None Full Exam - General 1994 Constitutional general appearance Overall: well developed 02/03/2012 None Full Exam - General 1994 Constitutional general appearance Overall: in no acute distress 02/03/2012 None Full Exam - General 1994 Constitutional general appearance Overall: well nourished 02/03/2012 None Full Exam - General 1994 Eyes pupils and irises Overall: pupils equal, round, reactive to light and accomodation 02/03/2012 None Full Exam - General 1994 Ears/Nose/Throat otoscopic exam Overall: external auditory canals clear 02/03/2012 None Full Exam - General 1994 Ears/Nose/Throat otoscopic exam Overall: tympanic membranes clear 02/03/2012 None Full Exam - General 1994 Ears/Nose/Throat oral cavity/pharynx/larynx Overall: oropharyngeal mucosa clear 02/03/2012 None Full Exam - General 1994 Ears/Nose/Throat oral cavity/pharynx/larynx Overall: no masses 02/03/2012 None Full Exam - General 1994 Ears/Nose/Throat oral cavity/pharynx/larynx Oral mucosa: dry 02/03/2012 None Full Exam - General 1994 Ears/Nose/Throat oral cavity/pharynx/larynx Oropharynx: thrush 02/03/2012 None Full Exam - General 1994 Neck inspection of neck Appearance: surgical scarring 02/03/2012 healing incisions Full Exam - General 1994 Respiratory auscultation Overall: breath sounds clear bilaterally 02/03/2012 None Full Exam - General 1994 Respiratory respiratory effort/rhythm Overall: no retractions 02/03/2012 None Full Exam - General 1994 Respiratory respiratory effort/rhythm Overall: normal rate 02/03/2012 None Full Exam - General 1994 Cardiovascular auscultation of heart Overall: regular rate 02/03/2012 None Full Exam - General 1994 Cardiovascular auscultation of heart Overall: normal heart sounds 02/03/2012 None Full Exam - General 1994 Cardiovascular auscultation of heart Overall: no murmurs 02/03/2012 None Full Exam - General 1994 Abdomen abdominal exam Overall: no tenderness 02/03/2012 None Full Exam - General 1994 Abdomen abdominal exam Overall: normal bowel sounds 02/03/2012 None Full Exam - General 1994 Musculoskeletal digits and nails Overall: no clubbing 02/03/2012 None Full Exam - General 1994 Musculoskeletal digits and nails Overall: digits benign 02/03/2012 None Full Exam - General 1994 Musculoskeletal spine, ribs and pelvis Overall: ribs benign 02/03/2012 None Full Exam - General 1994 Musculoskeletal spine, ribs and pelvis Posture: lordosis 02/03/2012 None Full Exam - General 1994 Musculoskeletal head and neck Overall: head atraumatic 02/03/2012 None Full Exam - General 1994 Musculoskeletal head and neck Overall: cervical spine benign 02/03/2012 None Full Exam - General 1994 Neurologic gait Overall: no ataxia, no unsteadiness 02/03/2012 None Full Exam - General 1994 Psychiatric orientation/consciousness Overall: oriented to person, place and time 02/03/2012 None Full Exam - General 1994 Psychiatric mood and affect Overall: normal mood and affect 02/03/2012 None Full Exam - General 1994 Psychiatric mood and affect Mood: happy 02/03/2012 None Full Exam - General 1994 Constitutional general appearance Overall: well developed 01/02/2012 None Full Exam - General 1994 Constitutional general appearance Overall: in no acute distress 01/02/2012 None Full Exam - General 1994 Constitutional general appearance Overall: well nourished 01/02/2012 None Full Exam - General 1994 Eyes pupils and irises Overall: pupils equal, round, reactive to light and accomodation 01/02/2012 None Full Exam - General 1994 Ears/Nose/Throat otoscopic exam Overall: external auditory canals clear 01/02/2012 None Full Exam - General 1994 Ears/Nose/Throat otoscopic exam Overall: tympanic membranes clear 01/02/2012 None Full Exam - General 1994 Ears/Nose/Throat oral cavity/pharynx/larynx Overall: oropharyngeal mucosa clear 01/02/2012 None Full Exam - General 1994 Ears/Nose/Throat oral cavity/pharynx/larynx Overall: no masses 01/02/2012 None Full Exam - General 1994 Ears/Nose/Throat oral cavity/pharynx/larynx Oropharynx: thrush 01/02/2012 None Full Exam - General 1994 Neck inspection of neck Appearance: surgical scarring 01/02/2012 healing incisions Full Exam - General 1994 Respiratory auscultation Overall: breath sounds clear bilaterally 01/02/2012 None Full Exam - General 1994 Respiratory respiratory effort/rhythm Overall: no retractions 01/02/2012 None Full Exam - General 1994 Respiratory respiratory effort/rhythm Overall: normal rate 01/02/2012 None Full Exam - General 1994 Cardiovascular auscultation of heart Overall: regular rate 01/02/2012 None Full Exam - General 1994 Cardiovascular auscultation of heart Overall: normal heart sounds 01/02/2012 None Full Exam - General 1994 Cardiovascular auscultation of heart Overall: no murmurs 01/02/2012 None Full Exam - General 1994 Abdomen abdominal exam Overall: no tenderness 01/02/2012 None Full Exam - General 1994 Abdomen abdominal exam Overall: normal bowel sounds 01/02/2012 None Full Exam - General 1994 Musculoskeletal digits and nails Overall: no clubbing 01/02/2012 None Full Exam - General 1994 Musculoskeletal digits and nails Overall: digits benign 01/02/2012 None Full Exam - General 1994 Musculoskeletal spine, ribs and pelvis Overall: ribs benign 01/02/2012 None Full Exam - General 1994 Musculoskeletal spine, ribs and pelvis Posture: lordosis 01/02/2012 None Full Exam - General 1994 Musculoskeletal head and neck Overall: head atraumatic 01/02/2012 None Full Exam - General 1994 Musculoskeletal head and neck Overall: cervical spine benign 01/02/2012 None Full Exam - General 1994 Neurologic gait Overall: no ataxia, no unsteadiness 01/02/2012 None Full Exam - General 1994 Psychiatric orientation/consciousness Overall: oriented to person, place and time 01/02/2012 None Full Exam - General 1994 Psychiatric mood and affect Overall: normal mood and affect 01/02/2012 None Full Exam - General 1994 Psychiatric mood and affect Mood: happy 01/02/2012 None Full Exam - General 1994 Ears/Nose/Throat oral cavity/pharynx/larynx Oral mucosa: dry 01/02/2012 None Full Exam - General 1994 Ears/Nose/Throat oral cavity/pharynx/larynx Overall: oropharyngeal mucosa clear 12/02/2011 None Full Exam - General 1994 Ears/Nose/Throat oral cavity/pharynx/larynx Overall: no masses 12/02/2011 None Full Exam - General 1994 Ears/Nose/Throat oral cavity/pharynx/larynx Oropharynx: thrush 12/02/2011 --Resolved Full Exam - General 1994 Neck inspection of neck Appearance: surgical scarring 12/02/2011 healing incisions Full Exam - General 1994 Respiratory auscultation Overall: breath sounds clear bilaterally 12/02/2011 None Full Exam - General 1994 Respiratory respiratory effort/rhythm Overall: no retractions 12/02/2011 None Full Exam - General 1994 Respiratory respiratory effort/rhythm Overall: normal rate 12/02/2011 None Full Exam - General 1994 Cardiovascular auscultation of heart Overall: regular rate 12/02/2011 None Full Exam - General 1994 Cardiovascular auscultation of heart Overall: normal heart sounds 12/02/2011 None Full Exam - General 1994 Cardiovascular auscultation of heart Overall: no murmurs 12/02/2011 None Full Exam - General 1994 Abdomen abdominal exam Overall: no tenderness 12/02/2011 None Full Exam - General 1994 Abdomen abdominal exam Overall: normal bowel sounds 12/02/2011 None Full Exam - General 1994 Musculoskeletal digits and nails Overall: no clubbing 12/02/2011 None Full Exam - General 1994 Musculoskeletal digits and nails Overall: digits benign 12/02/2011 None Full Exam - General 1994 Constitutional general appearance Overall: well developed 12/02/2011 None Full Exam - General 1994 Constitutional general appearance Overall: in no acute distress 12/02/2011 None Full Exam - General 1994 Constitutional general appearance Overall: well nourished 12/02/2011 None Full Exam - General 1994 Eyes pupils and irises Overall: pupils equal, round, reactive to light and accomodation 12/02/2011 None Full Exam - General 1995 Ears/Nose/Throat otoscopic exam Overall: external auditory canals clear 12/02/2011 None Full Exam - General 1994 Ears/Nose/Throat otoscopic exam Overall: tympanic membranes clear 12/02/2011 None Full Exam - General 1995 Ears/Nose/Throat oral cavity/pharynx/larynx Overall: oral mucosa clear 12/02/2011 None Full Exam - General 1994 Musculoskeletal spine, ribs and pelvis Overall: ribs benign 12/02/2011 None Full Exam - General 1994 Musculoskeletal spine, ribs and pelvis Posture: lordosis 12/02/2011 None Full Exam - General 1994 Musculoskeletal head and neck Overall: head atraumatic 12/02/2011 None Full Exam - General 1994 Musculoskeletal head and neck Overall: cervical spine benign 12/02/2011 None Full Exam - General 1994 Neurologic gait Overall: no ataxia, no unsteadiness 12/02/2011 None Full Exam - General 1994 Psychiatric orientation/consciousness Overall: oriented to person, place and time 12/02/2011 None Full Exam - General 1994 Psychiatric mood and affect Overall: normal mood and affect 12/02/2011 None Full Exam - General 1994 Psychiatric mood and affect Mood: happy 12/02/2011 None Full Exam - General 1994 Constitutional general appearance Overall: well developed 11/21/2011 None Full Exam - General 1994 Constitutional general appearance Overall: in no acute distress 11/21/2011 None Full Exam - General 1994 Constitutional general appearance Overall: well nourished 11/21/2011 None Full Exam - General 1994 Eyes pupils and irises Overall: pupils equal, round, reactive to light and accomodation 11/21/2011 None Full Exam - General 1994 Ears/Nose/Throat otoscopic exam Overall: external auditory canals clear 11/21/2011 None Full Exam - General 1994 Ears/Nose/Throat otoscopic exam Overall: tympanic membranes clear 11/21/2011 None Full Exam - General 1994 Ears/Nose/Throat oral cavity/pharynx/larynx Overall: oral mucosa clear 11/21/2011 None Full Exam - General 1995 Ears/Nose/Throat oral cavity/pharynx/larynx Overall: oropharyngeal mucosa clear 11/21/2011 None Full Exam - General 1995 Ears/Nose/Throat oral cavity/pharynx/larynx Overall: no masses 11/21/2011 None Full Exam - General 1994 Neck inspection of neck Appearance: surgical scarring 11/21/2011 healing incisions Full Exam - General 1994 Respiratory auscultation Overall: breath sounds clear bilaterally 11/21/2011 None Full Exam - General 1994 Respiratory respiratory effort/rhythm Overall: no retractions 11/21/2011 None Full Exam - General 1994 Respiratory respiratory effort/rhythm Overall: normal rate 11/21/2011 None Full Exam - General 1994 Cardiovascular auscultation of heart Overall: regular rate 11/21/2011 None Full Exam - General 1994 Cardiovascular auscultation of heart Overall: normal heart sounds 11/21/2011 None Full Exam - General 1994 Cardiovascular auscultation of heart Overall: no murmurs 11/21/2011 None Full Exam - General 1994 Abdomen abdominal exam Overall: no tenderness 11/21/2011 None Full Exam - General 1994 Abdomen abdominal exam Overall: normal bowel sounds 11/21/2011 None Full Exam - General 1994 Musculoskeletal digits and nails Overall: no clubbing 11/21/2011 None Full Exam - General 1994 Musculoskeletal digits and nails Overall: digits benign 11/21/2011 None Full Exam - General 1994 Musculoskeletal spine, ribs and pelvis Overall: ribs benign 11/21/2011 None Full Exam - General 1994 Musculoskeletal spine, ribs and pelvis Posture: lordosis 11/21/2011 None Full Exam - General 1994 Musculoskeletal head and neck Overall: head atraumatic 11/21/2011 None Full Exam - General 1994 Musculoskeletal head and neck Overall: cervical spine benign 11/21/2011 None Full Exam - General 1994 Neurologic gait Overall: no ataxia, no unsteadiness 11/21/2011 None Full Exam - General 1994 Psychiatric orientation/consciousness Overall: oriented to person, place and time 11/21/2011 None Full Exam - General 1994 Psychiatric mood and affect Overall: normal mood and affect 11/21/2011 None Full Exam - General 1994 Psychiatric mood and affect Mood: happy 11/21/2011 None Full Exam - General 1994 Ears/Nose/Throat oral cavity/pharynx/larynx Oropharynx: thrush 11/21/2011 None Full Exam - General 1994 Psychiatric mood and affect Mood: happy 10/24/2011 None Full Exam - General 1995 Abdomen abdominal exam Overall: no tenderness 10/24/2011 None Full Exam - General 1995 Abdomen abdominal exam Overall: normal bowel sounds 10/24/2011 None Full Exam - General 1994 Musculoskeletal digits and nails Overall: digits benign 10/24/2011 None Full Exam - General 1994 Musculoskeletal digits and nails Overall: no clubbing 10/24/2011 None Full Exam - General 1994 Musculoskeletal head and neck Overall: cervical spine benign 10/24/2011 None Full Exam - General 1994 Musculoskeletal head and neck Overall: head atraumatic 10/24/2011 None Full Exam - General 1994 Musculoskeletal spine, ribs and pelvis Overall: ribs benign 10/24/2011 None Full Exam - General 1994 Musculoskeletal spine, ribs and pelvis Posture: lordosis 10/24/2011 None Full Exam - General 1994 Ears/Nose/Throat oral cavity/pharynx/larynx Overall: oral mucosa clear 10/24/2011 None Full Exam - General 1994 Ears/Nose/Throat oral cavity/pharynx/larynx Overall: oropharyngeal mucosa clear 10/24/2011 None Full Exam - General 1994 Ears/Nose/Throat oral cavity/pharynx/larynx Overall: no masses 10/24/2011 None Full Exam - General 1994 Neck inspection of neck Appearance: surgical scarring 10/24/2011 healing incisions Full Exam - General 1994 Respiratory auscultation Overall: breath sounds clear bilaterally 10/24/2011 None Full Exam - General 1994 Respiratory respiratory effort/rhythm Overall: no retractions 10/24/2011 None Full Exam - General 1994 Respiratory respiratory effort/rhythm Overall: normal rate 10/24/2011 None Full Exam - General 1994 Cardiovascular auscultation of heart Overall: regular rate 10/24/2011 None Full Exam - General 1994 Cardiovascular auscultation of heart Overall: normal heart sounds 10/24/2011 None Full Exam - General 1994 Cardiovascular auscultation of heart Overall: no murmurs 10/24/2011 None Full Exam - General 1994 Neurologic gait Overall: no ataxia, no unsteadiness 10/24/2011 None Full Exam - General 1994 Psychiatric orientation/consciousness Overall: oriented to person, place and time 10/24/2011 None Full Exam - General 1994 Psychiatric mood and affect Overall: normal mood and affect 10/24/2011 None Full Exam - General 1994 Constitutional general appearance Overall: well developed 10/24/2011 None Full Exam - General 1994 Constitutional general appearance Overall: in no acute distress 10/24/2011 None Full Exam - General 1994 Constitutional general appearance Overall: well nourished 10/24/2011 None Full Exam - General 1994 Eyes pupils and irises Overall: pupils equal, round, reactive to light and accomodation 10/24/2011 None Full Exam - General 1994 Ears/Nose/Throat otoscopic exam Overall: external auditory canals clear 10/24/2011 None Full Exam - General 1994 Ears/Nose/Throat otoscopic exam Overall: tympanic membranes clear 10/24/2011 None Full Exam - General 1994 Constitutional general appearance Overall: well developed 09/05/2011 None Full Exam - General 1994 Constitutional general appearance Overall: in no acute distress 09/05/2011 None Full Exam - General 1994 Constitutional general appearance Overall: well nourished 09/05/2011 None Full Exam - General 1994 Eyes pupils and irises Overall: pupils equal, round, reactive to light and accomodation 09/05/2011 None Full Exam - General 1994 Ears/Nose/Throat otoscopic exam Overall: external auditory canals clear 09/05/2011 None Full Exam - General 1994 Ears/Nose/Throat otoscopic exam Overall: tympanic membranes clear 09/05/2011 None Full Exam - General 1994 Ears/Nose/Throat oral cavity/pharynx/larynx Overall: oral mucosa clear 09/05/2011 None Full Exam - General 1994 Ears/Nose/Throat oral cavity/pharynx/larynx Overall: oropharyngeal mucosa clear 09/05/2011 None Full Exam - General 1994 Ears/Nose/Throat oral cavity/pharynx/larynx Overall: no masses 09/05/2011 None Full Exam - General 1994 Neck inspection of neck Appearance: surgical scarring 09/05/2011 healing incisions Full Exam - General 1994 Respiratory auscultation Overall: breath sounds clear bilaterally 09/05/2011 None Full Exam - General 1994 Respiratory respiratory effort/rhythm Overall: no retractions 09/05/2011 None Full Exam - General 1994 Respiratory respiratory effort/rhythm Overall: normal rate 09/05/2011 None Full Exam - General 1994 Cardiovascular auscultation of heart Overall: regular rate 09/05/2011 None Full Exam - General 1994 Cardiovascular auscultation of heart Overall: normal heart sounds 09/05/2011 None Full Exam - General 1994 Cardiovascular auscultation of heart Overall: no murmurs 09/05/2011 None Full Exam - General 1994 Neurologic gait Overall: no ataxia, no unsteadiness 09/05/2011 None Full Exam - General 1994 Psychiatric orientation/consciousness Overall: oriented to person, place and time 09/05/2011 None Full Exam - General 1994 Psychiatric mood and affect Overall: normal mood and affect 09/05/2011 None Full Exam - General 1994 Psychiatric mood and affect Mood: happy 09/05/2011 None Full Exam - General 1994 Psychiatric mood and affect Overall: normal mood and affect 07/08/2011 None Full Exam - General 1994 Psychiatric mood and affect Mood: happy 07/08/2011 None Full Exam - General 1994 Ears/Nose/Throat otoscopic exam Overall: tympanic membranes clear 07/08/2011 None Full Exam - General 1994 Ears/Nose/Throat oral cavity/pharynx/larynx Overall: oral mucosa clear 07/08/2011 None Full Exam - General 1994 Ears/Nose/Throat oral cavity/pharynx/larynx Overall: oropharyngeal mucosa clear 07/08/2011 None Full Exam - General 1994 Ears/Nose/Throat oral cavity/pharynx/larynx Overall: no masses 07/08/2011 None Full Exam - General 1994 Neck inspection of neck Appearance: surgical scarring 07/08/2011 healing incisions Full Exam - General 1994 Respiratory auscultation Overall: breath sounds clear bilaterally 07/08/2011 None Full Exam - General 1994 Respiratory respiratory effort/rhythm Overall: no retractions 07/08/2011 None Full Exam - General 1994 Respiratory respiratory effort/rhythm Overall: normal rate 07/08/2011 None Full Exam - General 1994 Cardiovascular auscultation of heart Overall: regular rate 07/08/2011 None Full Exam - General 1994 Cardiovascular auscultation of heart Overall: normal heart sounds 07/08/2011 None Full Exam - General 1994 Cardiovascular auscultation of heart Overall: no murmurs 07/08/2011 None Full Exam - General 1994 Neurologic gait Overall: no ataxia, no unsteadiness 07/08/2011 None Full Exam - General 1994 Psychiatric orientation/consciousness Overall: oriented to person, place and time 07/08/2011 None Full Exam - General 1994 Constitutional general appearance Overall: well developed 07/08/2011 None Full Exam - General 1994 Constitutional general appearance Overall: in no acute distress 07/08/2011 None Full Exam - General 1994 Constitutional general appearance Overall: well nourished 07/08/2011 None Full Exam - General 1994 Eyes pupils and irises Overall: pupils equal, round, reactive to light and accomodation 07/08/2011 None Full Exam - General 1994 Ears/Nose/Throat otoscopic exam Overall: external auditory canals clear 07/08/2011 None Full Exam - General 1994 Constitutional general appearance Overall: well developed 06/24/2011 None Full Exam - General 1994 Constitutional general appearance Overall: in no acute distress 06/24/2011 None Full Exam - General 1994 Constitutional general appearance Overall: well nourished 06/24/2011 None Full Exam - General 1994 Eyes pupils and irises Overall: pupils equal, round, reactive to light and accomodation 06/24/2011 None Full Exam - General 1994 Ears/Nose/Throat otoscopic exam Overall: external auditory canals clear 06/24/2011 None Full Exam - General 1994 Ears/Nose/Throat otoscopic exam Overall: tympanic membranes clear 06/24/2011 None Full Exam - General 1994 Ears/Nose/Throat oral cavity/pharynx/larynx Overall: oral mucosa clear 06/24/2011 None Full Exam - General 1994 Ears/Nose/Throat oral cavity/pharynx/larynx Overall: oropharyngeal mucosa clear 06/24/2011 None Full Exam - General 1994 Ears/Nose/Throat oral cavity/pharynx/larynx Overall: no masses 06/24/2011 None Full Exam - General 1994 Respiratory auscultation Overall: breath sounds clear bilaterally 06/24/2011 None Full Exam - General 1994 Respiratory respiratory effort/rhythm Overall: no retractions 06/24/2011 None Full Exam - General 1994 Respiratory respiratory effort/rhythm Overall: normal rate 06/24/2011 None Full Exam - General 1994 Cardiovascular auscultation of heart Overall: regular rate 06/24/2011 None Full Exam - General 1994 Cardiovascular auscultation of heart Overall: normal heart sounds 06/24/2011 None Full Exam - General 1994 Cardiovascular auscultation of heart Overall: no murmurs 06/24/2011 None Full Exam - General 1994 Neurologic gait Overall: no ataxia, no unsteadiness 06/24/2011 None Full Exam - General 1994 Psychiatric orientation/consciousness Overall: oriented to person, place and time 06/24/2011 None Full Exam - General 1994 Psychiatric mood and affect Overall: normal mood and affect 06/24/2011 None Full Exam - General 1994 Psychiatric mood and affect Mood: happy 06/24/2011 None Full Exam - General 1994 Neck inspection of neck Appearance: surgical scarring 06/24/2011 healing incisions Full Exam - General 1994 Constitutional general appearance Overall: well nourished 04/23/2011 None Full Exam - General 1995 Constitutional general appearance Overall: well developed 04/23/2011 None Full Exam - General 1995 Psychiatric mood and affect Mood: happy 04/23/2011 None Full Exam - General 1995 Psychiatric mood and affect Overall: normal mood and affect 04/23/2011 None Full Exam - General 1994 Neurologic gait Overall: no ataxia, no unsteadiness 04/23/2011 None Full Exam - General 1994 Abdomen abdominal exam Overall: no tenderness 04/23/2011 None Full Exam - General 1995 Abdomen abdominal exam Overall: normal bowel sounds 04/23/2011 None Full Exam - General 1995 Constitutional general appearance Overall: in no acute distress 04/23/2011 None Full Exam - General 1994 Eyes pupils and irises Overall: pupils equal, round, reactive to light and accomodation 04/23/2011 None Full Exam - General 1994 Ears/Nose/Throat otoscopic exam Overall: tympanic membranes clear 04/23/2011 None Full Exam - General 1995 Ears/Nose/Throat otoscopic exam Overall: external auditory canals clear 04/23/2011 None Full Exam - General 1995 Ears/Nose/Throat oral cavity/pharynx/larynx Overall: oropharyngeal mucosa clear 04/23/2011 None Full Exam - General 1995 Ears/Nose/Throat oral cavity/pharynx/larynx Overall: no masses 04/23/2011 None Full Exam - General 1995 Ears/Nose/Throat oral cavity/pharynx/larynx Overall: oral mucosa clear 04/23/2011 None Full Exam - General 1994 Respiratory respiratory effort/rhythm Overall: normal rate 04/23/2011 None Full Exam - General 1994 Respiratory respiratory effort/rhythm Overall: no retractions 04/23/2011 None Full Exam - General 1994 Respiratory auscultation Overall: breath sounds clear bilaterally 04/23/2011 None Full Exam - General 1994 Cardiovascular auscultation of heart Overall: regular rate 04/23/2011 None Full Exam - General 1994 Cardiovascular auscultation of heart Overall: normal heart sounds 04/23/2011 None Full Exam - General 1994 Cardiovascular auscultation of heart Overall: no murmurs 04/23/2011 None Full Exam - General 1994 Psychiatric orientation/consciousness Overall: oriented to person, place and time 04/23/2011 None Full Exam - General Respiratory respiratory effort/rhythm Overall: normal rate 10/24/2010 None Full Exam - General Cardiovascular auscultation of heart Overall: regular rate 10/24/2010 None Full Exam - General Chest/Breast breast/ chest inspection Overall: normal chest shape 10/24/2010 None Full Exam - General Cardiovascular auscultation of heart Overall: normal heart sounds 10/24/2010 None Full Exam - General Cardiovascular auscultation of heart Overall: no murmurs 10/24/2010 None Full Exam - General Respiratory auscultation Left upper lung field: inspiratory wheezes 10/24/2010 None Full Exam - General Respiratory auscultation Left lower lung field: inspiratory wheezes 10/24/2010 None Full Exam - General Respiratory auscultation Right upper lung field: inspiratory wheezes 10/24/2010 None Full Exam - General Respiratory auscultation Right middle lung field: inspiratory wheezes 10/24/2010 None Full Exam - General Respiratory auscultation Right lower lung field: inspiratory wheezes 10/24/2010 None Full Exam - General Constitutional general appearance Overall: well nourished 10/24/2010 None Full Exam - General Constitutional general appearance Overall: well developed 10/24/2010 None Full Exam - General Constitutional general appearance Overall: in no acute distress 10/24/2010 None Full Exam - General Eyes pupils and irises Overall: pupils equal, round, reactive to light and accomodation 10/24/2010 None Full Exam - General Lymphatic neck nodes Overall: anterior cervical chain benign 10/24/2010 None Full Exam - General Lymphatic neck nodes Overall: posterior cervical chain benign 10/24/2010 None Full Exam - General Musculoskeletal head and neck Overall: head atraumatic 10/24/2010 None Full Exam - General Musculoskeletal head and neck Overall: cervical spine benign 10/24/2010 None Full Exam - General Neurologic gait Overall: no ataxia, no unsteadiness 10/24/2010 None Full Exam - General Neurologic cranial nerves Overall: cranial nerves 1-12 intact 10/24/2010 None Full Exam - General Psychiatric orientation/consciousness Overall: oriented to person, place and time 10/24/2010 None Full Exam - General Psychiatric mood and affect Overall: normal mood and affect 10/24/2010 None Full Exam - General Ears/Nose/Throat oral cavity/pharynx/larynx Overall: no masses 10/24/2010 None Full Exam - General Neck inspection of neck Overall: normal size 10/24/2010 None Full Exam - General Neck inspection of neck Overall: normal appearance 10/24/2010 None Full Exam - General Neck inspection of neck Overall: no masses 10/24/2010 None Full Exam - General Respiratory respiratory effort/rhythm Overall: no retractions 10/24/2010 None Full Exam - General Ears/Nose/Throat otoscopic exam Overall: external auditory canals clear 10/24/2010 None Full Exam - General Ears/Nose/Throat otoscopic exam Overall: tympanic membranes clear 10/24/2010 None Full Exam - General Ears/Nose/Throat lips /teeth/gingiva Overall: benign lips 10/24/2010 None Full Exam - General Ears/Nose/Throat lips /teeth/gingiva Overall: normal dentition 10/24/2010 None Full Exam - General Ears/Nose/Throat lips /teeth/gingiva Overall: no masses 10/24/2010 None Full Exam - General Ears/Nose/Throat oral cavity/pharynx/larynx Overall: oral mucosa clear 10/24/2010 None Full Exam - General Ears/Nose/Throat oral cavity/pharynx/larynx Overall: oropharyngeal mucosa clear 10/24/2010 None Procedures Procedure Codes Date ADMIN INFLUENZA VIRUS VAC CPT-4: G0008 11/24/2015 ADMIN PNEUMOCOCCAL VACCINE SNOMED CT: 61916134 CPT-4: G0009 11/24/2015 PNEUMOCOCCAL VACC [address]: 32391372 CPT-4: 73750 11/24/2015 FLU VACC 4 ANNE 3 YRS PLUS IM Formatting Model/CDA Sections, Assigned to/Silvina Townsend SNOMED CT: 43914783 CPT-4: 07363Whaohsl 11/24/2015 PROMETHAZINE HCL INJECTION CPT-4: J2550 09/19/2015 TRIAMCINOLONE ACET INJ NOS CPT-4: J3301 08/18/2015 URINALYSIS NONAUTO W/O SCOPE CPT-4: 51359 01/31/2014 IMMUNIZATION ADMIN CPT -4: 33248 11/11/2013 FLU VAC NO PRSV 4 ANNE 3 YRS+ Assigned to/Silvina Townsend CPT-4: 69954Hniwkfh 11/11/2013 FOOT EXAM PERFORMED SNOMED CT: 01678456 CPT-4: 2028F 04/29/2013 ROUTINE VENIPUNCTURE CPT-4: 61096 04/29/2013 ROUTINE VENIPUNCTURE CPT-4: 72132 11/24/2012 ADMIN INFLUENZA VIRUS VAC CPT-4: G0008 11/10/2012 FLULAVAL VACC, 3 YRS & >, IM CPT-4: Q2036 11/10/2012 ROUTINE VENIPUNCTURE CPT-4: 03014 02/03/2012 Vital Signs Date Vital 01/21/2017 Blood Pressure 1: 160/80 Code : 8480-6 BMI: 26.5 Code : 00391-4 Heart Rate 1 : 73 bpm Height: 5'8" SpO2: 94% Weight: 174 lbs 10/11/2016 Blood Pressure 1: 120/62 Code : 8480-6 Heart Rate 1: 67 bpm Height: 5'8" SpO2: 97% Weight: 08/09/2016 Blood Pressure 1: 120/64 Code : 8480-6 BMI: 24.9 Code : 09355-3 Heart Rate 1 : 70 bpm Height: 5'8" SpO2: 92% Weight: 163 lbs 8 oz 07/11/2016 Blood Pressure 1: 136/78 Code : 8480-6 BMI: 24.5 Code : 32408-3 Heart Rate 1 : 66 bpm Height: 5'8" SpO2: 97% Weight: 161 lbs 07/01/2016 Blood Pressure 1: 214/100 Code: 8480-6 BMI: 25.1 Code: 17140-8 Heart Rate 1: 68 bpm Height: 5'8" SpO2: 96% Weight: 165 lbs 06/03/2016 Blood Pressure 1: 122/62 Code : 8480-6 BMI: 25.5 Code : 09060-3 Heart Rate 1 : 66 bpm Height: 5'8" SpO2: 96% Weight: 168 lbs 05/20/2016 Blood Pressure 1: 112/58 Code : 8480-6 BMI: 24.3 Code : 22853-9 Height: 5'8" Weight: 160 lbs 05/07/2016 Blood Pressure 1: 122/62 Code : 8480-6 BMI: 24.9 Code : 10746-0 Heart Rate 1 : 67 bpm Height: 5'8" SpO2: 98% Weight: 164 lbs 04/23/2016 Blood Pressure 1: 178/88 Code : 8480-6 Heart Rate 1: 85 bpm SpO2: 98% Temperature: 37.2 (C) / 99.0 (F) 04/22/2016 Blood Pressure 1: 140/72 Code : 8480-6 BMI: 25.1 Code : 51354-4 Heart Rate 1 : 80 bpm Height: 5'8" SpO2: 95% Weight: 165 lbs 04/08/2016 Blood Pressure 1: 158/80 Code : 8480-6 BMI: 25.2 Code : 07033-7 Heart Rate 1 : 74 bpm Height: 5'8" SpO2: 98% Temperature: 36.7 (C) / 98.0 (F) Weight: 166 lbs 03/08/2016 Blood Pressure 1: 148/72 Code : 8480-6 BMI: 25.4 Code : 03927-2 Heart Rate 1 : 83 bpm Height: 5'8" SpO2: 94% Weight: 167 lbs 12/08/2015 Blood Pressure 1: 140/70 Code : 8480-6 BMI: 27.8 Code : 15948-4 Heart Rate 1 : 68 bpm Height: 5'8" SpO2: 96% Weight: 183 lbs 11/13/2015 Blood Pressure 1: 120/70 Code : 8480-6 BMI: 28.0 Code : 86429-8 Heart Rate 1 : 52 bpm Height: 5'8" SpO2: 95% Weight: 184 lbs 11/03/2015 Blood Pressure 1: 128/86 Code : 8480-6 BMI: 26.6 Code : 88388-5 Heart Rate 1 : 64 bpm Height: 5'8" SpO2: 96% Weight: 175 lbs 10/20/2015 Blood Pressure 1: 120/60 Code : 8480-6 Heart Rate 1: 74 bpm Height: 5'8" SpO2: 98% Weight: 09/25/2015 Blood Pressure 1: 102/70 Code : 8480-6 BMI: 26.5 Code : 45947-8 Heart Rate 1 : 59 bpm Height: 5'8" SpO2: 97% Weight: 174 lbs 09/19/2015 Blood Pressure 1: 120/56 Code : 8480-6 BMI: 26.2 Code : 12733-4 Heart Rate 1 : 63 bpm Height: 5'8" SpO2: 99% Temperature: 36.8 (C) / 98.2 (F) Weight: 172 lbs 08/25/2015 Blood Pressure 1: 142/78 Code : 8480-6 BMI: 28.3 Code : 08333-4 Heart Rate 1 : 66 bpm Height: 5'8" SpO2: 95% Weight: 186 lbs 08/18/2015 Blood Pressure 1: 110/78 Code : 8480-6 BMI: 28.1 Code : 70452-7 Heart Rate 1 : 60 bpm Height: 5'8" SpO2: 95% Weight: 185 lbs 08/14/2015 Blood Pressure 1: 116/72 Code : 8480-6 BMI: 28.2 Code : 65091-4 Heart Rate 1 : 64 bpm Height: 5'8" SpO2: 97% Temperature: 36.6 (C) / 97.9 (F) Weight: 185 lbs 8 oz 08/10/2015 Blood Pressure 1: 132/60 Code : 8480-6 08/08/2015 Blood Pressure 1: 140/62 Code : 8480-6 BMI: 28.4 Code : 05589-7 Heart Rate 1 : 74 bpm Height: 5'8" SpO2: 97% Weight: 187 lbs 06/15/2015 Blood Pressure 1: 136/80 Code : 8480-6 BMI: 28.7 Code : 46471-8 Heart Rate 1 : 70 bpm Height: 5'8" SpO2: 97% Weight: 189 lbs 05/18/2015 Blood Pressure 1: 150/82 Code : 8480-6 Blood Pressure 1: 110/60 Code: 8480-6 BMI: 28.7 Code: 03528-4 Heart Rate 1: 107 bpm Height: 5'8" SpO2: 97% Weight: 189 lbs 02/21/2015 Blood Pressure 1: 110/68 Code : 8480-6 BMI: 26.8 Code : 88775-4 Heart Rate 1 : 72 bpm Height: 5'8" Weight: 176 lbs 12/16/2014 Blood Pressure 1: 130/68 Code : 8480-6 BMI: 27.4 Code : 98315-3 Heart Rate 1 : 75 bpm Height: 5'8" SpO2: 95% Weight: 180 lbs 11/22/2014 Blood Pressure 1: 122/78 Code : 8480-6 BMI: 26.9 Code : 95241-2 Heart Rate 1 : 76 bpm Height: 5'8" Weight: 177 lbs 10/27/2014 Blood Pressure 1: 90/60 Code : 8480-6 Heart Rate 1: 74 bpm SpO2: 95% Weight: 183 lbs 09/06/2014 Blood Pressure 1: 110/70 Code : 8480-6 BMI: 27.8 Code : 23475-1 Heart Rate 1 : 72 bpm Height: 5'8" Weight: 183 lbs 08/02/2014 Blood Pressure 1: 110/80 Code : 8480-6 BMI: 26.2 Code : 07465-1 Heart Rate 1 : 74 bpm Height: 5'8" SpO2: 96% Weight: 172 lbs 07/26/2014 Blood Pressure 1: 100/62 Code : 8480-6 BMI: 27.1 Code : 21322-7 Heart Rate 1 : 91 bpm Height: 5'8" SpO2: 95% Temperature: 36.9 (C) / 98.4 (F) Weight: 178 lbs 07/19/2014 Blood Pressure 1: 92/60 Code : 8480-6 BMI: 27.1 Code : 60287-8 Heart Rate 1 : 95 bpm Height: 5'8" SpO2: 94% Weight: 178 lbs 04/01/2014 Blood Pressure 1: 140/80 Code : 8480-6 BMI: 30.1 Code : 15462-3 Heart Rate 1 : 70 bpm Height: 5'8" SpO2: 98% Weight: 198 lbs 03/14/2014 Blood Pressure 1: 130/82 Code : 8480-6 BMI: 29.0 Code : 83086-5 Heart Rate 1 : 76 bpm Height: 5'8" Weight: 191 lbs 02/21/2014 Blood Pressure 1: 132/74 Code : 8480-6 BMI: 27.8 Code : 88880-1 Heart Rate 1 : 71 bpm Height: 5'8" SpO2: 98% Weight: 183 lbs 01/18/2014 Blood Pressure 1: 160/90 Code : 8480-6 BMI: 27.2 Code : 14855-6 Heart Rate 1 : 88 bpm Height: 5'8" Weight: 179 lbs 09/09/2013 Blood Pressure 1: 130/80 Code : 8480-6 BMI: 28.9 Code : 56912-9 Heart Rate 1 : 80 bpm Height: 5'8" Weight: 190 lbs 08/19/2013 Blood Pressure 1: 142/82 Code : 8480-6 BMI: 27.5 Code : 07555-9 Heart Rate 1 : 84 bpm Height: 5'8" Weight: 181 lbs 08/02/2013 Blood Pressure 1: 112/62 Code : 8480-6 BMI: 28.3 Code : 10557-5 Heart Rate 1 : 72 bpm Height: 5'8" Weight: 186 lbs 07/08/2013 Blood Pressure 1: 130/70 Code : 8480-6 BMI: 27.8 Code : 34601-2 Heart Rate 1 : 88 bpm Height: 5'8" Weight: 183 lbs 07/01/2013 Blood Pressure 1: 130/68 Code : 8480-6 BMI: 27.7 Code : 15551-0 Heart Rate 1 : 84 bpm Height: 5'8" Weight: 182 lbs 06/21/2013 Blood Pressure 1: 80/60 Code : 8480-6 BMI: 26.6 Code : 82995-0 Heart Rate 1 : 86 bpm Height: 5'8" SpO2: 96% Weight: 175 lbs 06/07/2013 Blood Pressure 1: 140/80 Code : 8480-6 BMI: 27.1 Code : 80695-4 Heart Rate 1 : 92 bpm Height: 5'8" SpO2: 98% Temperature: 36.7 (C) / 98.1 (F) Weight: 178 lbs 05/17/2013 Blood Pressure 1: 90/50 Code : 8480-6 Heart Rate 1: 94 bpm SpO2: 94% Temperature: 36.8 (C) / 98.3 (F) Weight: 181 lbs 04/29/2013 Blood Pressure 1: 144/74 Code : 8480-6 BMI: 27.4 Code : 72899-5 Heart Rate 1 : 80 bpm Height: 5'8" SpO2: 95% Weight: 180 lbs 03/26/2013 Blood Pressure 1: 132/78 Code : 8480-6 Heart Rate 1: 76 bpm Weight: 186 lbs 03/16/2013 Blood Pressure 1: 182/90 Code : 8480-6 Heart Rate 1: 60 bpm SpO2: 98% Weight: 191 lbs 03/09/2013 Blood Pressure 1: 152/90 Code : 8480-6 BMI: 28.9 Code : 63257-1 Heart Rate 1 : 60 bpm Height: 5'8" Weight: 190 lbs 12/11/2012 Blood Pressure 1: 134/82 Code : 8480-6 BMI: 27.5 Code : 71984-1 Heart Rate 1 : 80 bpm Height: 5'8" Weight: 181 lbs 11/24/2012 Blood Pressure 1: 148/84 Code : 8480-6 BMI: 30.3 Code : 85734-8 Heart Rate 1 : 80 bpm Height: 5'8" Weight: 199 lbs 10/13/2012 Blood Pressure 1: 148/80 Code : 8480-6 BMI: 29.2 Code : 54089-9 Heart Rate 1 : 80 bpm Height: 5'8" Weight: 192 lbs 09/17/2012 Blood Pressure 1: 138/72 Code : 8480-6 BMI: 29.2 Code : 67680-4 Heart Rate 1 : 80 bpm Height: 5'8" Weight: 192 lbs 06/25/2012 Blood Pressure 1: 128/82 Code : 8480-6 BMI: 28.1 Code : 43401-3 Heart Rate 1 : 88 bpm Height: 5'8" Weight: 185 lbs 06/15/2012 Blood Pressure 1: 90/60 Code : 8480-6 BMI: 27.8 Code : 80678-8 Heart Rate 1 : 104 bpm Height: 5'8" Weight: 183 lbs 05/12/2012 Blood Pressure 1: 132/88 Code : 8480-6 BMI: 27.1 Code : 72897-7 Heart Rate 1 : 80 bpm Height: 5'8" Weight: 178 lbs 02/03/2012 Blood Pressure 1: 90/56 Code : 8480-6 Heart Rate 1: 76 bpm Weight: 184 lbs 8 oz 01/02/2012 Blood Pressure 1: 92/62 Code : 8480-6 Heart Rate 1: 72 bpm Temperature: 36.7 (C) / 98.0 (F) Weight: 183 lbs 12/02/2011 Blood Pressure 1: 118/66 Code : 8480-6 Heart Rate 1: 60 bpm Weight: 194 lbs 11/21/2011 Blood Pressure 1: 116/70 Code : 8480-6 Heart Rate 1: 84 bpm Temperature: 37.0 (C) / 98.6 (F) Weight: 198 lbs 10/24/2011 Blood Pressure 1: 118/72 Code : 8480-6 Heart Rate 1: 88 bpm Weight: 201 lbs 09/05/2011 Blood Pressure 1: 120/68 Code : 8480-6 Heart Rate 1: 70 bpm SpO2: 98% Weight: 199 lbs 07/08/2011 Blood Pressure 1: 100/60 Code : 8480-6 Heart Rate 1: 68 bpm Respiratory Rate : 16 bpm Weight: 187 lbs 06/24/2011 Blood Pressure 1: 110/68 Code : 8480-6 BMI: 28.5 Code : 85968-9 Heart Rate 1 : 78 bpm Height: 5'8" Respiratory Rate: 16 bpm Weight: 187 lbs 8 oz 04/23/2011 Blood Pressure 1: 130/84 Code : 8480-6 BMI: 28.6 Code : 09148-0 Heart Rate 1 : 62 bpm Height: 5'8" Respiratory Rate: 16 bpm Weight: 188 lbs 10/24/2010 Blood Pressure 1: 144/72 Code : 8480-6 Heart Rate 1: 76 bpm Respiratory Rate : 16 bpm Weight: 192 lbs Functional Status No Functional Status data History of Present Illness Symptom Name Status Result Effective Date Notes hypertension Quality primary hypertension 01/21/2017 None hypertension Onset and Resolution ongoing 01/21/2017 None hypertension Onset of Symptom during adulthood 01/21/2017 None hypertension Alleviating Factors medication 01/21/2017 None hypertension Blood Pressure Values patient checking blood pressure at home - did not bring in readings 01/21/2017 -Checks occasionally at home- M, W, F he has dialysis and it is checked at that time hypertension Pertinent Findings Denies dizziness 01/21/2017 None hypertension Pertinent Findings dyspnea 01/21/2017 with exertion hypertension Pertinent Findings Denies edema 01/21/2017 None hypertension Quality intermittent 01/21/2017 None hypothyroid Onset and Resolution ongoing 01/21/2017 None hypothyroid Alleviating Factors medication 01/21/2017 None hypertension Severity not consistently severe symptoms, the symptoms fluctuate from no symptoms to anxiety and headaches 01/21/2017 None hypertension Frequency of Episodes unchanged 01/21/2017 None hypertension Significant Medical Conditions renal failure 01/21/2017 None hypertension Significant Medical Conditions diabetes 01/21/2017 None blood pressure followup Quality chronic 10/11/2016 None blood pressure followup Onset and Resolution ongoing 10/11/2016 None blood pressure followup Onset of Symptom during adulthood 10/11/2016 None blood pressure followup Blood Pressure Values not checking blood pressure at home 10/11/2016 None blood pressure followup Frequency of Episodes unchanged 10/11/2016 None blood pressure followup Significant Family History renal disease 10/11/2016 None blood pressure followup Significant Family History hypertension 10/11/2016 None blood pressure followup Significant Family History cardiac disease 10/11/2016 None blood pressure followup Triggers no known associated factors 10/11/2016 None blood pressure followup Pertinent Findings Denies anxiety 10/11/2016 None blood pressure followup Pertinent Findings decreased energy 10/11/2016 None blood pressure followup Pertinent Findings dizziness 10/11/2016 None blood pressure followup Pertinent Findings Denies dyspnea 10/11/2016 None blood pressure followup Pertinent Findings Denies edema 10/11/2016 None blood pressure followup Quality chronic 08/09/2016 None blood pressure followup Onset and Resolution ongoing 08/09/2016 None blood pressure followup Onset of Symptom during adulthood 08/09/2016 None blood pressure followup Blood Pressure Values not checking blood pressure at home 08/09/2016 None blood pressure followup Frequency of Episodes unchanged 08/09/2016 None blood pressure followup Significant Family History renal disease 08/09/2016 None blood pressure followup Significant Family History hypertension 08/09/2016 None blood pressure followup Significant Family History cardiac disease 08/09/2016 None blood pressure followup Triggers no known associated factors 08/09/2016 None blood pressure followup Pertinent Findings Denies anxiety 08/09/2016 None blood pressure followup Pertinent Findings decreased energy 08/09/2016 None blood pressure followup Pertinent Findings dizziness 08/09/2016 None blood pressure followup Pertinent Findings Denies dyspnea 08/09/2016 None blood pressure followup Pertinent Findings Denies edema 08/09/2016 None blood pressure followup Quality chronic 07/11/2016 None blood pressure followup Onset and Resolution ongoing 07/11/2016 None blood pressure followup Onset of Symptom during adulthood 07/11/2016 None blood pressure followup Blood Pressure Values not checking blood pressure at home 07/11/2016 None blood pressure followup Frequency of Episodes unchanged 07/11/2016 None blood pressure followup Significant Family History renal disease 07/11/2016 None blood pressure followup Significant Family History hypertension 07/11/2016 None blood pressure followup Significant Family History cardiac disease 07/11/2016 None blood pressure followup Triggers no known associated factors 07/11/2016 None blood pressure followup Pertinent Findings Denies anxiety 07/11/2016 None blood pressure followup Pertinent Findings decreased energy 07/11/2016 None blood pressure followup Pertinent Findings dizziness 07/11/2016 None blood pressure followup Pertinent Findings Denies dyspnea 07/11/2016 None blood pressure followup Pertinent Findings Denies edema 07/11/2016 None blood pressure followup Quality chronic 07/01/2016 None blood pressure followup Onset and Resolution ongoing 07/01/2016 None blood pressure followup Onset of Symptom during adulthood 07/01/2016 None blood pressure followup Blood Pressure Values not checking blood pressure at home 07/01/2016 None blood pressure followup Frequency of Episodes unchanged 07/01/2016 None blood pressure followup Significant Family History renal disease 07/01/2016 None blood pressure followup Significant Family History hypertension 07/01/2016 None blood pressure followup Significant Family History cardiac disease 07/01/2016 None blood pressure followup Triggers no known associated factors 07/01/2016 None blood pressure followup Pertinent Findings Denies anxiety 07/01/2016 None blood pressure followup Pertinent Findings decreased energy 07/01/2016 None blood pressure followup Pertinent Findings dizziness 07/01/2016 None blood pressure followup Pertinent Findings Denies dyspnea 07/01/2016 None blood pressure followup Pertinent Findings Denies edema 07/01/2016 None blood pressure followup Quality chronic 06/03/2016 None blood pressure followup Onset and Resolution ongoing 06/03/2016 None blood pressure followup Onset of Symptom during adulthood 06/03/2016 None blood pressure followup Blood Pressure Values not checking blood pressure at home 06/03/2016 None blood pressure followup Frequency of Episodes unchanged 06/03/2016 None blood pressure followup Significant Family History renal disease 06/03/2016 None blood pressure followup Significant Family History hypertension 06/03/2016 None blood pressure followup Significant Family History cardiac disease 06/03/2016 None blood pressure followup Triggers no known associated factors 06/03/2016 None blood pressure followup Pertinent Findings Denies anxiety 06/03/2016 None blood pressure followup Pertinent Findings decreased energy 06/03/2016 None blood pressure followup Pertinent Findings dizziness 06/03/2016 None blood pressure followup Pertinent Findings Denies dyspnea 06/03/2016 None blood pressure followup Pertinent Findings Denies edema 06/03/2016 None abdominal pain Location in the periumbilical area 05/20/2016 None abdominal pain Quality burning 05/20/2016 None abdominal pain Quality constant 05/20/2016 None abdominal pain Alleviating Factors proton pump inhibitor 05/20/2016 None abdominal pain Pertinent Findings Denies abdominal distension 05/20/2016 None abdominal pain Pertinent Findings Denies bloating 05/20/2016 None abdominal pain Pertinent Findings dyspepsia 05/20/2016 None abdominal pain Pertinent Findings heartburn 05/20/2016 None abdominal pain Onset and Resolution ongoing 05/20/2016 None abdominal pain Onset of Symptom during adulthood 05/20/2016 None abdominal pain Frequency of Episodes decreasing 05/20/2016 None abdominal pain Limitation on Activities moderately limits activities 05/20/2016 None abdominal pain Triggers no known associated factors 05/20/2016 None abdominal pain Significant Medical Conditions acid reflux 05/20/2016 None blood pressure followup Quality chronic 05/07/2016 None blood pressure followup Onset and Resolution ongoing 05/07/2016 None blood pressure followup Onset of Symptom during adulthood 05/07/2016 None blood pressure followup Blood Pressure Values not checking blood pressure at home 05/07/2016 None blood pressure followup Frequency of Episodes unchanged 05/07/2016 None blood pressure followup Significant Family History renal disease 05/07/2016 None blood pressure followup Significant Family History hypertension 05/07/2016 None blood pressure followup Significant Family History cardiac disease 05/07/2016 None blood pressure followup Triggers no known associated factors 05/07/2016 None blood pressure followup Pertinent Findings Denies anxiety 05/07/2016 None blood pressure followup Pertinent Findings decreased energy 05/07/2016 None blood pressure followup Pertinent Findings dizziness 05/07/2016 None blood pressure followup Pertinent Findings Denies dyspnea 05/07/2016 None blood pressure followup Pertinent Findings Denies edema 05/07/2016 None vomiting Quality acute 04/23/2016 None vomiting Onset and Resolution ongoing 04/23/2016 None vomiting Onset of Symptom _ hours ago 04/23/2016 None vomiting Severity moderate 04/23/2016 None vomiting Frequency of Episodes increasing 04/23/2016 None vomiting Length of Episodes _ hours 04/23/2016 starting throwing up about 9am this morning vomiting Significant Medications antibiotics 04/23/2016 None vomiting Pertinent Findings Denies abdominal distension 04/23/2016 None vomiting Pertinent Findings Denies bloating 04/23/2016 None vomiting Pertinent Findings nausea 04/23/2016 None urinary retention/hesitancy Quality acute 04/22/2016 None urinary retention/hesitancy Alleviating Factors catheterization 04/22/2016 None urinary retention/hesitancy Pertinent Findings Denies fever 04/22/2016 None diabetes mellitus Quality insulin dependent 04/08/2016 None diabetes mellitus Alleviating Factors medication 04/08/2016 None diabetes mellitus Alleviating Factors insulin 04/08/2016 None diabetes mellitus Exacerbating Factors diet 04/08/2016 None diabetes mellitus Pertinent Findings dizziness 04/08/2016 lightheaded diabetes mellitus Pertinent Findings Denies nausea 04/08/2016 None diabetes mellitus Pertinent Findings Denies vomiting 04/08/2016 None hypothyroid Quality chronic 04/08/2016 None hypothyroid Onset and Resolution ongoing 04/08/2016 None hypothyroid Frequency of Episodes unchanged 04/08/2016 doesn't know last time he had labs to check thyroid hypothyroid Triggers no known associated factors 04/08/2016 None hypothyroid Alleviating Factors medication 04/08/2016 None hypothyroid Pertinent Findings decreased energy 04/08/2016 None hypothyroid Pertinent Findings Denies dry skin 04/08/2016 None hypothyroid Pertinent Findings dyspnea 04/08/2016 on exertion hypothyroid Pertinent Findings Denies hair loss 04/08/2016 None hypothyroid Pertinent Findings Denies hoarseness 04/08/2016 None hypothyroid Pertinent Findings increased need for sleep 04/08/2016 None hypothyroid Pertinent Findings Denies vision changes 04/08/2016 None hypothyroid Pertinent Findings weakness 04/08/2016 None fatigue Pertinent Findings dizziness 04/08/2016 None fatigue Pertinent Findings lightheadedness 04/08/2016 None fatigue Pertinent Findings Denies confusion 04/08/2016 None fatigue Pertinent Findings dyspnea 04/08/2016 None fatigue Pertinent Findings Denies palpitations 04/08/2016 None fatigue Pertinent Findings Denies syncope 04/08/2016 None fatigue Pertinent Findings Denies tachycardia 04/08/2016 None fatigue Pertinent Findings Denies tachypnea 04/08/2016 None fatigue Pertinent Findings weakness 04/08/2016 None fatigue Limitation on Activities is incapacitating 04/08/2016 None fatigue Triggers activity 04/08/2016 None fatigue Triggers exertion 04/08/2016 None fatigue Onset of Symptom 1 years ago 04/08/2016 None diabetes mellitus Blood glucose levels greater than 120 04/08/2016 115-140 diabetes mellitus Glucose monitoring daily 04/08/2016 None diabetes mellitus Pertinent Findings lethargy 04/08/2016 None hypothyroid Pertinent Findings Denies palpitations 04/08/2016 None diabetes mellitus Quality insulin dependent 03/08/2016 None diabetes mellitus Alleviating Factors medication 03/08/2016 None diabetes mellitus Alleviating Factors insulin 03/08/2016 None diabetes mellitus Exacerbating Factors diet 03/08/2016 None diabetes mellitus Pertinent Findings Denies nausea 03/08/2016 None hypothyroid Quality chronic 03/08/2016 None hypothyroid Onset and Resolution ongoing 03/08/2016 None hypothyroid Frequency of Episodes unchanged 03/08/2016 doesn't know last time he had labs to check thyroid hypothyroid Triggers no known associated factors 03/08/2016 None hypothyroid Alleviating Factors medication 03/08/2016 None diabetes mellitus Test results Pt checking blood glucose readings, did not bring results to clinic 03/08/2016 None diabetes mellitus Glucose monitoring daily 03/08/2016 115-120 fasting upon awakening diabetes mellitus Glucose monitoring fasting 03/08/2016 None diabetes mellitus Blood glucose levels _ 03/08/2016 None diabetes mellitus Pertinent Findings dizziness 03/08/2016 lightheaded diabetes mellitus Pertinent Findings Denies vomiting 03/08/2016 None hypothyroid Pertinent Findings Denies hair loss 03/08/2016 None hypothyroid Pertinent Findings Denies hoarseness 03/08/2016 None hypothyroid Pertinent Findings vision changes 03/08/2016 None hypothyroid Pertinent Findings weakness 03/08/2016 None hypothyroid Pertinent Findings increased need for sleep 03/08/2016 None hypothyroid Pertinent Findings dyspnea 03/08/2016 on exertion hypothyroid Pertinent Findings Denies dry skin 03/08/2016 None hypothyroid Pertinent Findings decreased energy 03/08/2016 None sore throat Location diffusely 03/08/2016 None sore throat Quality constant 03/08/2016 None sore throat Onset and Resolution sudden in onset 03/08/2016 None sore throat Quality aching 03/08/2016 None sore throat Quality stabbing 03/08/2016 None sore throat Quality sharp 03/08/2016 None sore throat Onset of Symptom 1 days ago 03/08/2016 this morning sore throat Triggers rest 03/08/2016 None sore throat Triggers no known associated factors 03/08/2016 None sore throat Alleviating Factors rest 03/08/2016 None sore throat Alleviating Factors voice rest 03/08/2016 None sore throat Exacerbating Factors activity 03/08/2016 None sore throat Exacerbating Factors eating 03/08/2016 None sore throat Pertinent Findings cough 03/08/2016 None sore throat Pertinent Findings decreased energy level 03/08/2016 None sore throat Pertinent Findings Denies dysphagia 03/08/2016 None sore throat Pertinent Findings Denies fever 03/08/2016 None sore throat Pertinent Findings Denies hoarseness 03/08/2016 None sore throat Pertinent Findings nasal congestion 03/08/2016 None sore throat Pertinent Findings Denies restlessness 03/08/2016 None sore throat Pertinent Findings Denies unable to lie down 03/08/2016 None sore throat Pertinent Findings Denies unable to swallow 03/08/2016 None sore throat Pertinent Findings Denies vomiting 03/08/2016 None diabetes mellitus Test results HgbA1c level 5.1% 03/08/2016 None diabetes mellitus Quality insulin dependent 12/08/2015 None diabetes mellitus Alleviating Factors medication 12/08/2015 None diabetes mellitus Alleviating Factors insulin 12/08/2015 None diabetes mellitus Exacerbating Factors diet 12/08/2015 None diabetes mellitus Pertinent Findings Denies nausea 12/08/2015 None hypothyroid Quality chronic 12/08/2015 None hypothyroid Onset and Resolution ongoing 12/08/2015 None hypothyroid Frequency of Episodes unchanged 12/08/2015 doesn't know last time he had labs to check thyroid hypothyroid Triggers no known associated factors 12/08/2015 None hypothyroid Alleviating Factors medication 12/08/2015 None diabetes mellitus Quality insulin dependent 11/13/2015 None diabetes mellitus Test results Pt checking blood glucose readings, did not bring results to clinic 11/13/2015 None diabetes mellitus Glucose monitoring daily 11/13/2015 1-2 times per day diabetes mellitus Alleviating Factors medication 11/13/2015 None diabetes mellitus Exacerbating Factors diet 11/13/2015 None diabetes mellitus Alleviating Factors insulin 11/13/2015 None diabetes mellitus Pertinent Findings Denies nausea 11/13/2015 None hypothyroid Quality chronic 11/13/2015 None hypothyroid Onset and Resolution ongoing 11/13/2015 None hypothyroid Frequency of Episodes unchanged 11/13/2015 doesn't know last time he had labs to check thyroid hypothyroid Triggers no known associated factors 11/13/2015 None hypothyroid Alleviating Factors medication 11/13/2015 None blood pressure followup Quality intermittent 11/03/2015 None blood pressure followup Onset and Resolution ongoing 11/03/2015 None blood pressure followup Pertinent Findings Denies anxiety 11/03/2015 None blood pressure followup Pertinent Findings Denies dizziness 11/03/2015 None headache Location diffusely 10/20/2015 None headache Onset of Symptom 4 days ago 10/20/2015 None headache Frequency of Episodes daily 10/20/2015 None headache Pertinent Findings Denies awakens from sleep 10/20/2015 None headache Pertinent Findings Denies nausea 10/20/2015 None headache Quality acute 10/20/2015 None headache Onset and Resolution ongoing 10/20/2015 None headache Limitation on Activities does not limit activities 10/20/2015 None headache Triggers no known associated factors 10/20/2015 None dizziness Quality acute 09/25/2015 None dizziness Onset and Resolution ongoing 09/25/2015 None dizziness Onset of Symptom 10 days ago 09/25/2015 None dizziness Limitation on Activities moderately limits activities 09/25/2015 None dizziness Frequency of Episodes unchanged 09/25/2015 None dizziness Significant Family History hypertension 09/25/2015 None dizziness Significant Medical Conditions cardiac disease 09/25/2015 None dizziness Triggers activity 09/25/2015 None dizziness Pertinent Findings ataxia 09/25/2015 None dizziness Pertinent Findings Denies cough 09/25/2015 None dizziness Pertinent Findings Denies dyspnea 09/25/2015 None dizziness Pertinent Findings blurred vision 09/25/2015 None dizziness Pertinent Findings Denies fever 09/25/2015 None constipation Quality acute 09/25/2015 None constipation Onset and Resolution ongoing 09/25/2015 None constipation Onset of Symptom 2 weeks ago 09/25/2015 None constipation Severity moderate 09/25/2015 no BM x 2 weeks constipation Frequency of Episodes increasing 09/25/2015 None constipation Triggers no known associated factors 09/25/2015 None syncope Quality intermittent 09/19/2015 None syncope Onset and Resolution sudden in onset 09/19/2015 None syncope Onset of Symptom 3 days ago 09/19/2015 None syncope Pertinent Findings nausea 09/19/2015 None syncope Pertinent Findings Denies fever 09/19/2015 None syncope Pertinent Findings weight loss 09/19/2015 None syncope Pertinent Findings weakness 09/19/2015 None syncope Pertinent Findings dyspnea 09/19/2015 None syncope Pertinent Findings Denies warning signs 09/19/2015 None syncope Pertinent Findings tunnel vision 09/19/2015 None syncope Pertinent Findings Denies palpitations 09/19/2015 None syncope Pertinent Findings chills 09/19/2015 None syncope Pertinent Findings Denies chest pressure 09/19/2015 None fatigue Onset and Resolution sudden in onset 09/19/2015 None fatigue Onset of Symptom 3 days ago 09/19/2015 None fatigue Quality acute 09/19/2015 None headache Location in the left frontal area 09/19/2015 None headache Quality acute 09/19/2015 None headache Quality sharp 09/19/2015 None headache Quality constant 09/19/2015 None headache Onset and Resolution sudden in onset 09/19/2015 None headache Onset of Symptom 3 days ago 09/19/2015 None headache Limitation on Activities is incapacitating 09/19/2015 None headache Pertinent Findings blurred vision 09/19/2015 None nausea Onset and Resolution sudden in onset 09/19/2015 None nausea Onset of Symptom 3 days ago 09/19/2015 None nausea Pertinent Findings Denies cough 09/19/2015 None nausea Pertinent Findings Denies fever 09/19/2015 None nausea Pertinent Findings Denies edema 09/19/2015 None nausea Pertinent Findings lethargy 09/19/2015 None nausea Pertinent Findings lightheadedness 09/19/2015 None nausea Pertinent Findings weight loss 09/19/2015 None nausea Pertinent Findings migraine headache 09/19/2015 None cough Location in the lung 08/25/2015 None cough Quality constant 08/25/2015 None cough Quality hacking 08/25/2015 None cough Quality productive 08/25/2015 None cough Onset and Resolution sudden in onset 08/25/2015 None cough Onset of Symptom 1 weeks ago 08/25/2015 None cough Frequency of Episodes daily 08/25/2015 None sinus congestion Onset and Resolution sudden in onset 08/25/2015 None sinus congestion Onset of Symptom 1 weeks ago 08/25/2015 None cough Location in the lung 08/18/2015 None cough Quality constant 08/18/2015 None cough Quality hacking 08/18/2015 None cough Quality productive 08/18/2015 None cough Onset and Resolution sudden in onset 08/18/2015 None cough Onset of Symptom 1 weeks ago 08/18/2015 None cough Frequency of Episodes daily 08/18/2015 None sinus congestion Onset and Resolution sudden in onset 08/18/2015 None sinus congestion Onset of Symptom 1 weeks ago 08/18/2015 None diabetes mellitus Quality insulin dependent 08/14/2015 None diabetes mellitus Significant Medications insulin 08/14/2015 None diabetes mellitus Alleviating Factors insulin 08/14/2015 None diabetes mellitus Exacerbating Factors diet 08/14/2015 None diabetes mellitus Nutrition regular diet 08/14/2015 None diabetes mellitus Pertinent Findings dizziness 08/14/2015 None diabetes mellitus Pertinent Findings dyspnea 08/14/2015 None diabetes mellitus Pertinent Findings nausea 08/14/2015 None diabetes mellitus Onset of Symptom onset as an adult 08/14/2015 None hypertension Onset and Resolution ongoing 08/14/2015 None hypertension Onset of Symptom during adulthood 08/14/2015 None hypertension Blood Pressure Values patient checking blood pressure at home - did not bring in readings 08/14/2015 None hypertension Alleviating Factors medication 08/14/2015 None hypertension Pertinent Findings dizziness 08/14/2015 None hypertension Pertinent Findings dyspnea 08/14/2015 None hypertension Pertinent Findings decreased energy 08/14/2015 None hypertension Pertinent Findings edema 08/14/2015 -occasional diabetes mellitus Glucose monitoring daily 08/14/2015 None diabetes mellitus Test results Pt checking blood glucose readings, did not bring results to clinic 08/14/2015 None diabetes mellitus Pertinent Findings lethargy 08/14/2015 None fatigue Onset and Resolution ongoing 08/14/2015 None fatigue Alleviating Factors rest 08/14/2015 None fatigue Exacerbating Factors activity 08/14/2015 None muscle weakness Quality upper extremities 08/14/2015 None muscle weakness Quality lower extremities 08/14/2015 None muscle weakness Onset and Resolution ongoing 08/14/2015 None muscle weakness Quality both sides 08/14/2015 None muscle weakness Alleviating Factors rest 08/14/2015 None headache Quality acute 08/14/2015 None headache Quality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 None vomiting Severity moderate 05/17/2013 None vomiting Severity severe 05/17/2013 None vomiting Frequency of Episodes increasing 05/17/2013 None vomiting Significant Medical Conditions diabetes 05/17/2013 None vomiting Pertinent Findings chills 05/17/2013 None vomiting Pertinent Findings cough 05/17/2013 None vomiting Pertinent Findings decreased energy level 05/17/2013 None vomiting Pertinent Findings Denies dyspnea 05/17/2013 None vomiting Pertinent Findings Denies fever 05/17/2013 None vomiting Pertinent Findings lethargy 05/17/2013 None vomiting Pertinent Findings nausea 05/17/2013 None vomiting Pertinent Findings unable to tolerate any liquids 05/17/2013 None diabetes mellitus Quality insulin dependent 05/17/2013 None diabetes mellitus Quality worsening 05/17/2013 blood sugars high over the weekend- did not register cough Location in the lung 05/17/2013 None cough Quality acute None cough Onset and Resolution ongoing 05/17/2013 None cough Onset of Symptom 4 days ago 05/17/2013 None cough Limitation on Activities moderately limits activities 05/17/2013 None cough Frequency of Episodes increasing 05/17/2013 None cough Significant Medical Conditions cardiac disease 05/17/2013 None vomiting Triggers coughing 05/17/2013 None cough Onset and Resolution sudden in onset 04/29/2013 None cough Onset of Symptom 3 weeks ago 04/29/2013 None weight loss Quality worsening 04/29/2013 has lost 6 pounds in one month. states he is still trying to get his dentures cough Quality dry None nausea Severity moderate 04/29/2013 None nausea Frequency of Episodes daily 04/29/2013 None nausea Onset of Symptom 2-3 weeks ago 04/29/2013 states some gave him zofran and wants a refill of it nausea Quality intermittent 04/29/2013 describes it as an upset stomach weight loss Onset and Resolution ongoing 04/29/2013 None weight loss Onset of Symptom _ months ago 04/29/2013 None weight loss Frequency of Episodes increasing 04/29/2013 None weight loss Diet decreased intake 04/29/2013 None weight loss Triggers change in diet 04/29/2013 None weight loss Triggers unintentional weight loss 04/29/2013 None weight loss Significant Medical Conditions cancer/malignancy 04/29/2013 None cough Location in the lung 04/29/2013 None cough Limitation on Activities does not limit activities 04/29/2013 None cough Triggers no known associated factors 04/29/2013 None cough Pertinent Findings Denies dyspnea 04/29/2013 None cough Pertinent Findings Denies fever 04/29/2013 None cough Pertinent Findings Denies post- tussive emesis 04/29/2013 None blood pressure followup Blood Pressure Values pt checking blood pressure at home, did not bring in to clinic 03/26/2013 None blood pressure followup Pertinent Findings Denies edema 03/26/2013 None blood pressure followup Pertinent Findings Denies dyspnea 03/26/2013 None blood pressure followup Pertinent Findings Denies dizziness 03/26/2013 None blood pressure followup Quality chronic 03/26/2013 None blood pressure followup Onset and Resolution ongoing 03/26/2013 None blood pressure followup Onset of Symptom during adulthood 03/26/2013 None blood pressure followup Severity mild 03/26/2013 None blood pressure followup Frequency of Episodes decreasing 03/26/2013 None blood pressure followup Triggers stress 03/26/2013 None hypertension Quality chronic 03/16/2013 None hypertension Onset and Resolution ongoing 03/16/2013 None hypertension Onset of Symptom during adulthood 03/16/2013 None hypertension Blood Pressure Values patient checking blood pressure at home - did not bring in readings 03/16/2013 None hypertension Severity not consistently severe symptoms, the symptoms fluctuate from no symptoms to anxiety and headaches 03/16/2013 None hypertension Frequency of Episodes unchanged 03/16/2013 None hypertension Significant Family History heart disease 03/16/2013 None hypertension Significant Medical Conditions diabetes 03/16/2013 None hypertension Alleviating Factors medication 03/16/2013 None hypertension Pertinent Findings decreased energy 03/16/2013 None hypertension Pertinent Findings anxiety 03/16/2013 None hypertension Pertinent Findings Denies confusion 03/16/2013 None hypertension Pertinent Findings Denies edema 03/16/2013 None hypertension Pertinent Findings Denies irritability 03/16/2013 None hypertension Pertinent Findings palpitations 03/16/2013 None hypertension Pertinent Findings Denies tachycardia 03/16/2013 None hypertension Pertinent Findings vomiting 03/16/2013 None hypertension Blood Pressure Values not checking blood pressure at home 03/09/2013 None hypertension Pertinent Findings Denies edema 03/09/2013 None hypertension Pertinent Findings Denies dyspnea 03/09/2013 None hypertension Pertinent Findings dizziness 03/09/2013 None diabetes mellitus Glucose monitoring twice daily 03/09/2013 None diabetes mellitus Test results Pt checking blood glucose readings, did not bring results to clinic 03/09/2013 None diabetes mellitus Blood glucose levels between 60 and 120 03/09/2013 None diabetes mellitus Blood glucose levels greater than 120 03/09/2013 None hypertension Quality chronic 03/09/2013 None hypertension Onset and Resolution ongoing 03/09/2013 None hypertension Onset of Symptom during adulthood 03/09/2013 None hypertension Triggers no known associated factors 03/09/2013 None diabetes mellitus Onset of Symptom onset as an adult 03/09/2013 None diabetes mellitus Quality insulin dependent 03/09/2013 None Hospital Follow Up _ infection 12/11/2012 Patient was thought to have shingles but also had infection in teeth causing pain and swelling in face. patient says pain is somewhat better but still has a sore on the right side lower jaw. has appt with oral surgeon next and thinks he is having his teeth pulled. Hospital Follow Up Quality acute 12/11/2012 None Hospital Follow Up Onset of Symptom 2 weeks ago 12/11/2012 None Hospital Follow Up Severity moderate 12/11/2012 None Hospital Follow Up Alleviating Factors medication 12/11/2012 None Hospital Follow Up Pertinent Findings pain 12/11/2012 None diabetes mellitus Quality insulin dependent 11/24/2012 None diabetes mellitus Quality chronic 11/24/2012 None diabetes mellitus Test results Pt checking blood glucose readings, did not bring results to clinic 11/24/2012 None hypertension Quality chronic 11/24/2012 None hypertension Onset and Resolution ongoing 11/24/2012 None hypertension Blood Pressure Values patient checking blood pressure at home - did not bring in readings 11/24/2012 None diabetes mellitus Significant Medications insulin 11/24/2012 None diabetes mellitus Alleviating Factors insulin 11/24/2012 None diabetes mellitus Nutrition regular diet 11/24/2012 None diabetes mellitus Pertinent Findings Denies dehydration 11/24/2012 None diabetes mellitus Pertinent Findings Denies dizziness 11/24/2012 None diabetes mellitus Pertinent Findings Denies nausea 11/24/2012 None diabetes mellitus Blood glucose levels 160-220 11/24/2012 None diabetes mellitus Quality insulin dependent 10/13/2012 None diabetes mellitus Quality chronic 10/13/2012 None diabetes mellitus Test results Pt checking blood glucose at home, see scanned readings 2012 states he is having some lows, some with exercise some without hypertension Quality chronic 10/13/2012 None hypertension Onset and Resolution ongoing 10/13/2012 None hypertension Blood Pressure Values patient checking blood pressure at home - did not bring in readings 10/13/2012 None cough Quality acute None cough Quality productive 10/13/2012 yellow phlegm cough Quality interrupts sleep 10/13/2012 only occasionally cough Onset of Symptom 1 weeks ago 10/13/2012 None cough Onset and Resolution ongoing 10/13/2012 None cough Limitation on Activities does not limit activities 10/13/2012 None cough Frequency of Episodes unchanged 10/13/2012 None cough Triggers ill contacts 10/13/2012 None cough Pertinent Findings Denies chest discomfort 10/13/2012 None cough Pertinent Findings Denies dyspnea 10/13/2012 None cough Pertinent Findings Denies fever 10/13/2012 None cough Pertinent Findings hoarseness 10/13/2012 None cough Pertinent Findings Denies nasal congestion 10/13/2012 None cough Pertinent Findings Denies nausea 10/13/2012 None cough Pertinent Findings Denies weakness 10/13/2012 None cough Pertinent Findings Denies vomiting 10/13/2012 None cough Pertinent Findings Denies tachypnea 10/13/2012 None cough Pertinent Findings sputum production 10/13/2012 None cough Pertinent Findings purulent sputum 10/13/2012 None diabetes mellitus Glucose monitoring 2 hours postprandial 10/13/2012 None diabetes mellitus Glucose monitoring before meals 10/13/2012 None diabetes mellitus Glucose monitoring bedtime 10/13/2012 None diabetes mellitus Glucose monitoring fasting 10/13/2012 None diabetes mellitus Significant Medications insulin 10/13/2012 None diabetes mellitus Alleviating Factors insulin 10/13/2012 None diabetes mellitus Nutrition regular diet 10/13/2012 None diabetes mellitus Exercise minimal exercise 10/13/2012 None diabetes mellitus Pertinent Findings Denies dizziness 10/13/2012 None diabetes mellitus Pertinent Findings Denies dehydration 10/13/2012 None diabetes mellitus Pertinent Findings Denies nausea 10/13/2012 None diabetes mellitus Pertinent Findings Denies vomiting 10/13/2012 None diabetes mellitus Pertinent Findings Denies weight loss 10/13/2012 None diabetes mellitus Onset of Symptom onset as an adult 10/13/2012 None syncope Quality acute 09/17/2012 None syncope Onset and Resolution ongoing 09/17/2012 None syncope Onset of Symptom 1 weeks ago 09/17/2012 passed out a week ago, treated in ER, CT negative. diabetes mellitus Quality insulin dependent 09/17/2012 None diabetes mellitus Severity severe 09/17/2012 None diabetes mellitus Test results Pt checking blood glucose at home, see scanned readings 2012 None diabetes mellitus Blood glucose levels greater than 120 09/17/2012 None diabetes mellitus Glucose monitoring before meals 09/17/2012 None diabetes mellitus Glucose monitoring 2 hours postprandial 09/17/2012 None diabetes mellitus Significant Medications insulin 09/17/2012 None diabetes mellitus Alleviating Factors insulin 09/17/2012 None diabetes mellitus Exercise no exercise 09/17/2012 None syncope Limitation on Activities moderately limits activities 09/17/2012 None syncope Frequency of Episodes increasing 09/17/2012 None syncope Significant Medications antihypertensives 09/17/2012 None syncope Triggers no warning signs 09/17/2012 None diabetes mellitus Onset of Symptom onset as an adult 06/25/2012 None diabetes mellitus Severity moderate 06/25/2012 None diabetes mellitus Quality insulin dependent 06/25/2012 None diabetes mellitus Significant Medications insulin 06/25/2012 None diabetes mellitus Alleviating Factors insulin 06/25/2012 None diabetes mellitus Exacerbating Factors diet 06/25/2012 None diabetes mellitus Pertinent Findings Denies dizziness 06/25/2012 None diabetes mellitus Pertinent Findings Denies dyspnea 06/25/2012 None diabetes mellitus Pertinent Findings Denies lethargy 06/25/2012 None diabetes mellitus Pertinent Findings Denies vomiting 06/25/2012 None near-syncope/dizziness Quality acute 06/15/2012 None near-syncope/dizziness Quality lightheadedness 06/15/2012 None near-syncope/dizziness Onset and Resolution sudden in onset 06/15/2012 occured this weekend at the [facility]. near-syncope/dizziness Limitation on Activities occasionally results in syncope 06/15/2012 None near-syncope/dizziness Significant Medical Conditions cardiac disease 06/15/2012 None near-syncope/dizziness Significant Medical Conditions thyroid disease 06/15/2012 None near-syncope/dizziness Triggers no known associated factors 06/15/2012 None near-syncope/dizziness Pertinent Findings Denies aphasia 06/15/2012 None near-syncope/dizziness Pertinent Findings Denies confusion 06/15/2012 None near-syncope/dizziness Pertinent Findings Denies dyspnea 06/15/2012 None near-syncope/dizziness Pertinent Findings Denies edema 06/15/2012 None near-syncope/dizziness Pertinent Findings lightheadedness 06/15/2012 None near-syncope/dizziness Pertinent Findings Denies palpitations 06/15/2012 None near-syncope/dizziness Pertinent Findings Denies sense of impending doom 06/15/2012 None near-syncope/dizziness Pertinent Findings syncope 06/15/2012 None diabetes mellitus Quality insulin dependent 05/12/2012 None diabetes mellitus Test results Pt checking blood glucose readings, did not bring results to clinic 05/12/2012 None diabetes mellitus Glucose monitoring twice daily 05/12/2012 None diabetes mellitus Significant Medications insulin 05/12/2012 None diabetes mellitus Alleviating Factors insulin 05/12/2012 None diabetes mellitus Exacerbating Factors diet 05/12/2012 None diabetes mellitus Exercise no exercise 05/12/2012 None diabetes mellitus Pertinent Findings Denies dizziness 05/12/2012 None diabetes mellitus Pertinent Findings Denies dyspnea 05/12/2012 None diabetes mellitus Pertinent Findings Denies lethargy 05/12/2012 None diabetes mellitus Pertinent Findings Denies vomiting 05/12/2012 None diabetes mellitus Onset of Symptom onset as an adult 05/12/2012 None diabetes mellitus Quality insulin dependent 02/03/2012 None diabetes mellitus Severity severe 02/03/2012 None diabetes mellitus Significant Medications insulin 02/03/2012 None diabetes mellitus Alleviating Factors medication 02/03/2012 None diabetes mellitus Exacerbating Factors diet 02/03/2012 None diabetes mellitus Nutrition regular diet 02/03/2012 None diabetes mellitus Pertinent Findings Denies behavioral changes 02/03/2012 None diabetes mellitus Pertinent Findings Denies dizziness 02/03/2012 None diabetes mellitus Onset of Symptom onset as an adult 02/03/2012 None cough Quality dry None cough Quality interrupts sleep 01/02/2012 None cough Onset and Resolution gradual in onset 01/02/2012 None cough Onset and Resolution ongoing 01/02/2012 None sore throat Quality sharp 01/02/2012 when he swallows states it mcintyre diabetes mellitus Quality insulin dependent 01/02/2012 None diabetes mellitus Severity severe 01/02/2012 None diabetes mellitus Significant Medications insulin 01/02/2012 None diabetes mellitus Alleviating Factors medication 01/02/2012 None diabetes mellitus Exacerbating Factors diet 01/02/2012 None diabetes mellitus Nutrition regular diet 01/02/2012 None diabetes mellitus Pertinent Findings Denies behavioral changes 01/02/2012 None diabetes mellitus Pertinent Findings Denies dizziness 01/02/2012 None sore throat Onset and Resolution gradual in onset 01/02/2012 None sore throat Limitation on Activities limits oral intake 01/02/2012 None sore throat Pertinent Findings Denies hoarseness 01/02/2012 None sore throat Pertinent Findings Denies oral ulcers 01/02/2012 None cough Limitation on Activities moderately limits activities 01/02/2012 None cough Significant Medical Conditions malignancy 01/02/2012 None cough Pertinent Findings Denies chills 01/02/2012 None oral lesion Location diffusely 12/02/2011 on the uvula oral lesion Quality acute 12/02/2011 None oral lesion Onset and Resolution resolved 12/02/2011 None oral lesion Onset of Symptom 10 days ago 12/02/2011 None oral lesion Limitation on Activities does not limit oral intake 12/02/2011 resolved oral lesion Triggers no known associated factors 12/02/2011 None oral lesion Pertinent Findings cough 12/02/2011 improved-no radiation on Friday, Fri, or Friday. oral lesion Pertinent Findings hoarseness 12/02/2011 None oral lesion Pertinent Findings Denies vomiting 12/02/2011 None diabetes mellitus Quality insulin dependent 12/02/2011 None diabetes mellitus Severity severe 12/02/2011 None diabetes mellitus Test results HgbA1c level 9.5 12/02/2011 None diabetes mellitus Blood glucose levels greater than 120 12/02/2011 None diabetes mellitus Significant Medications insulin 12/02/2011 None diabetes mellitus Alleviating Factors medication 12/02/2011 None diabetes mellitus Exacerbating Factors diet 12/02/2011 None diabetes mellitus Nutrition regular diet 12/02/2011 None diabetes mellitus Exercise no exercise 12/02/2011 None diabetes mellitus Pertinent Findings Denies behavioral changes 12/02/2011 None diabetes mellitus Pertinent Findings Denies dehydration 12/02/2011 None diabetes mellitus Pertinent Findings Denies dyspnea 12/02/2011 None diabetes mellitus Pertinent Findings Denies dizziness 12/02/2011 None diabetes mellitus Pertinent Findings Denies lethargy 12/02/2011 None diabetes mellitus Pertinent Findings Denies mental status change 12/02/2011 None diabetes mellitus Pertinent Findings Denies nausea 12/02/2011 None diabetes mellitus Onset of Symptom onset as an adult 12/02/2011 None diabetes mellitus Onset of Symptom onset as an adult 11/21/2011 None diabetes mellitus Quality insulin dependent 11/21/2011 None diabetes mellitus Quality IDDM 11/21/2011 None diabetes mellitus Severity moderate 11/21/2011 None diabetes mellitus Alleviating Factors medication 11/21/2011 None diabetes mellitus Alleviating Factors insulin 11/21/2011 None diabetes mellitus Exacerbating Factors diet 11/21/2011 None diabetes mellitus Pertinent Findings Denies behavioral changes 11/21/2011 None diabetes mellitus Pertinent Findings Denies dizziness 11/21/2011 None diabetes mellitus Pertinent Findings Denies increased hunger 11/21/2011 None diabetes mellitus Pertinent Findings Denies lethargy 11/21/2011 None diabetes mellitus Pertinent Findings Denies nausea 11/21/2011 None diabetes mellitus Pertinent Findings Denies vomiting 11/21/2011 None hypertension Quality chronic 11/21/2011 None hypertension Onset and Resolution ongoing 11/21/2011 states up slightly due to chemo diabetes mellitus Test results Pt checking blood glucose readings, did not bring results to clinic 11/21/2011 states has been running 260-311 cough Location in the throat 11/21/2011 None cough Quality acute None cough Quality worsening 11/21/2011 states due to radiation cough Onset and Resolution ongoing 11/21/2011 None cough Onset of Symptom 1 weeks ago 11/21/2011 after starting radiation cough Limitation on Activities moderately limits activities 11/21/2011 keeps him awake cough Significant Medical Conditions malignancy 11/21/2011 None hyperlipidemia Onset and Resolution ongoing 10/24/2011 None hypothyroid Quality stable 10/24/2011 None diabetes mellitus Onset of Symptom onset as an adult 10/24/2011 None diabetes mellitus Severity moderate 10/24/2011 None diabetes mellitus Pertinent Findings Denies dizziness 10/24/2011 None diabetes mellitus Pertinent Findings Denies lethargy 10/24/2011 None diabetes mellitus Pertinent Findings Denies nausea 10/24/2011 None diabetes mellitus Pertinent Findings Denies vomiting 10/24/2011 None diabetes mellitus Quality IDDM 10/24/2011 None hypertension Quality chronic 10/24/2011 None hypertension Onset and Resolution ongoing 10/24/2011 states up slightly due to chemo diabetes mellitus Alleviating Factors insulin 10/24/2011 None diabetes mellitus Alleviating Factors medication 10/24/2011 None diabetes mellitus Exacerbating Factors diet 10/24/2011 None diabetes mellitus Pertinent Findings Denies behavioral changes 10/24/2011 None diabetes mellitus Pertinent Findings Denies increased hunger 10/24/2011 None diabetes mellitus Quality insulin dependent 10/24/2011 None hyperlipidemia Onset of Symptom during adulthood 10/24/2011 None hyperlipidemia Severity mild 10/24/2011 None hyperlipidemia Significant Medical Conditions diabetes 10/24/2011 None hyperlipidemia Significant Medical Conditions hypothyroidism 10/24/2011 None hyperlipidemia Significant Medications statin 10/24/2011 None hyperlipidemia Exacerbating Factors diet 10/24/2011 None hyperlipidemia Alleviating Factors medication 10/24/2011 None hyperlipidemia Quality chronic 10/24/2011 None hyperlipidemia Pertinent Findings obesity 10/24/2011 None hyperlipidemia Pertinent Findings Denies edema 10/24/2011 None diabetes mellitus Test results Pt checking blood glucose readings, did not bring results to clinic 09/05/2011 states running in 200's hypertension Quality chronic 09/05/2011 None hypertension Onset and Resolution ongoing 09/05/2011 states up slightly due to chemo diabetes mellitus Onset of Symptom onset as an adult 09/05/2011 None diabetes mellitus Severity moderate 09/05/2011 None diabetes mellitus Blood glucose levels 170-230 09/05/2011 None diabetes mellitus Pertinent Findings Denies dizziness 09/05/2011 None diabetes mellitus Pertinent Findings Denies lethargy 09/05/2011 None diabetes mellitus Pertinent Findings Denies vomiting 09/05/2011 None diabetes mellitus Pertinent Findings Denies nausea 09/05/2011 None diabetes mellitus Quality IDDM 09/05/2011 None diabetes mellitus Test results Pt checking blood glucose readings, did not bring results to clinic 07/08/2011 states it was 151 this am diabetes mellitus Test results Pt checking blood glucose at home, see scanned readings 2011 None diabetes mellitus Onset of Symptom onset as an adult 07/08/2011 None diabetes mellitus Severity moderate 07/08/2011 None diabetes mellitus Significant Medications insulin 07/08/2011 None diabetes mellitus Alleviating Factors medication 07/08/2011 None diabetes mellitus Exacerbating Factors diet 07/08/2011 None diabetes mellitus Exercise no exercise 07/08/2011 None diabetes mellitus Pertinent Findings Denies dizziness 07/08/2011 None diabetes mellitus Pertinent Findings lethargy 07/08/2011 None diabetes mellitus Quality insulin dependent 07/08/2011 None diabetes mellitus Alleviating Factors insulin 07/08/2011 None blood pressure followup Quality chronic 07/08/2011 None blood pressure followup Onset and Resolution ongoing 07/08/2011 None blood pressure followup Onset of Symptom during adulthood 07/08/2011 None blood pressure followup Severity mild 07/08/2011 None blood pressure followup Frequency of Episodes unchanged 07/08/2011 None blood pressure followup Triggers no known associated factors 07/08/2011 None diabetes mellitus Severity moderate 06/24/2011 None diabetes mellitus Test results Pt checking blood glucose readings, did not bring results to clinic 06/24/2011 None diabetes mellitus Glucose monitoring before meals 06/24/2011 None diabetes mellitus Glucose monitoring bedtime 06/24/2011 None diabetes mellitus Glucose monitoring fasting 06/24/2011 None diabetes mellitus Significant Medications insulin 06/24/2011 None diabetes mellitus Alleviating Factors medication 06/24/2011 None diabetes mellitus Alleviating Factors insulin 06/24/2011 None diabetes mellitus Exercise no exercise 06/24/2011 None diabetes mellitus Exacerbating Factors diet 06/24/2011 -had a cold cut sandwich from the sandwich shop for lunch at about 1:00pm-blood sugar was 370mg/dl at 2: 30 blood pressure followup Quality chronic 06/24/2011 None blood pressure followup Onset and Resolution ongoing 06/24/2011 None blood pressure followup Onset of Symptom during adulthood 06/24/2011 None blood pressure followup Severity mild 06/24/2011 None blood pressure followup Frequency of Episodes unchanged 06/24/2011 None blood pressure followup Triggers no known associated factors 06/24/2011 None diabetes mellitus Onset of Symptom onset as an adult 04/23/2011 None diabetes mellitus Severity moderate 04/23/2011 None diabetes mellitus Test results Pt checking blood glucose at home, see scanned readings 2011 None diabetes mellitus Test results HgbA1c level 13.2 04/23/2011 None diabetes mellitus Blood glucose levels 250-480 04/23/2011 None diabetes mellitus Glucose monitoring before meals 04/23/2011 None diabetes mellitus Glucose monitoring 2 hours postprandial 04/23/2011 None diabetes mellitus Quality insulin dependent 04/23/2011 None diabetes mellitus Quality worsening 04/23/2011 None diabetes mellitus Pertinent Findings Denies behavioral changes 04/23/2011 None diabetes mellitus Pertinent Findings Denies dizziness 04/23/2011 None diabetes mellitus Pertinent Findings Denies increased hunger 04/23/2011 None diabetes mellitus Nutrition ADA diet 04/23/2011 1800kcal diabetes mellitus Exercise no exercise 04/23/2011 None diabetes mellitus Significant Medications insulin 04/23/2011 None diabetes mellitus Alleviating Factors medication 04/23/2011 None cough Onset and Resolution ongoing 10/24/2010 None cough Onset of Symptom 4 weeks ago 10/24/2010 None cough Limitation on Activities moderately limits activities 10/24/2010 None cough Frequency of Episodes increasing 10/24/2010 None cough Length of Episodes 5-10 minutes 10/24/2010 all day long will cough for several minutes, has been interrupting work cough Triggers no known associated factors 10/24/2010 None cough Pertinent Findings Denies chest discomfort 10/24/2010 None cough Pertinent Findings Denies chills 10/24/2010 None cough Pertinent Findings Denies cyanosis 10/24/2010 None cough Pertinent Findings Denies frothy pink sputum 10/24/2010 None cough Pertinent Findings Denies dysphagia 10/24/2010 None hoarseness Onset of Symptom 1 months ago 10/24/2010 None hoarseness Quality chronic 10/24/2010 None hoarseness Onset and Resolution ongoing 10/24/2010 None hoarseness Exacerbating Factors voice use 10/24/2010 None cough Location in the lung 10/24/2010 None cough Location in the throat 10/24/2010 None cough Quality chronic 10/24/2010 None cough Quality worsening 10/24/2010 None Advance Directives No Advance Directive data Encounters Encounter Performer Location Codes Date [id number]) 07140 EST. 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 PATIENT, LEVEL IV Diagnosis: Essential (primary) hypertension[ICD10: I10] Diagnosis: Low back pain[ICD10: M54.5] Diagnosis: Gastro-esophageal reflux disease without esophagitis[ICD10: K21.9] Diagnosis: Hypothyroidism, unspecified[ICD10: E03.9] Shama Zelaya MD, [facility] CPT-4: 64918 10/11/2016 ([id number]) 71581 EST. PATIENT, LEVEL III Diagnosis: Essential (primary) hypertension[ICD10: I10] Shama Zelaya MD, [facility] CPT-4: 64599 08/09/2016 ([id number]) 82115 EST. PATIENT, LEVEL III Diagnosis: Essential (primary) hypertension[ICD10: I10] Shama Zelaya MD, [facility] CPT-4: 48230 07/11/2016 ([id number]) 91695 EST. PATIENT, LEVEL III Diagnosis: Essential (primary) hypertension[ICD10: I10] Shama Zelaya MD, [facility] CPT-4: 48300 07/01/2016 ([id number]) 81040 EST. PATIENT, LEVEL III Diagnosis: Slow transit constipation[ICD10: K59.01] Diagnosis: Hypothyroidism, unspecified[ICD10: E03.9] Shama Zelaya MD, [facility] CPT-4: 23638 06/03/2016 ([id number]) 16037 EST. PATIENT, LEVEL III Diagnosis: Gastro-esophageal reflux disease without esophagitis[ICD10: K21.9] Diagnosis: Slow transit constipation[ICD10: K59.01] Shama Zelaya MD, [facility] CPT-4: 71881 05/20/2016 ([id number]) 13552 EST. 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 PATIENT, LEVEL III Diagnosis: Vomiting without nausea[ICD10: R11.11] Diagnosis: Cough[ICD10: R05] Shama Zelaya MD, [facility] CPT-4: 51118 04/23/2016 67468 EST. PATIENT, LEVEL III Diagnosis: Other retention of urine[ICD10: R33.8] Tess Zelaya MD, [facility] CPT-4: 31907 04/22/2016 ([id number]) 14233 EST. PATIENT, LEVEL IV Diagnosis: Essential (primary) hypertension[ICD10: I10] Diagnosis: End stage renal disease[ICD10: N18.6] Diagnosis: Hypothyroidism, unspecified[ICD10: E03.9] Shama Zelaya MD, [facility] CPT-4: 38969 04/08/2016 ([id number]) 46243 EST. 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 PATIENT, LEVEL III Diagnosis: Essential (primary) hypertension[ICD10: I10] Diagnosis: Obstructive sleep apnea (adult) (pediatric)[ICD10: G47.33] Diagnosis: Dyspnea, unspecified[ICD10: R06.00] Shama Zelaya MD, [facility] CPT-4: 47720 11/03/2015 ([id number]) 25830 EST. 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 PATIENT, LEVEL IV Diagnosis: Essential (primary) hypertension[ICD10: I10] Diagnosis: Dizziness and giddiness[ICD10: R42] Diagnosis: Slow transit constipation[ICD10: K59.01] Diagnosis: Chronic kidney disease, stage 5[ICD10: N18.5] Shama Zelaya MD, [facility] CPT-4: 80687 09/25/2015 ([id number]) 34102 EST. PATIENT, LEVEL III Diagnosis: Nausea with vomiting, unspecified[ICD10: R11.2] Diagnosis: Gastroparesis[ICD10: K31.84] Catherine Zelaya MD, [facility] CPT- 4: 79694 09/19/2015 99285 EST. PATIENT, LEVEL IV Diagnosis: Pneumonia due to other specified bacteria[ICD10: J15.8] Diagnosis: Shortness of breath[ICD10: R06.02] Diagnosis: Wheezing[ICD10: R06.2] Tess Zelaya MD, [facility] CPT-4: 23960 08/25/2015 89703 EST. PATIENT, LEVEL IV Diagnosis: Pneumonia due to other specified bacteria[ICD10: J15.8] Diagnosis: Wheezing[ICD10: R06.2] Tess Zelaya MD, [facility] CPT-4: 67528 08/18/2015 ([id number]) 46485 EST. 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 PATIENT, LEVEL III Diagnosis: Onycholysis[ICD10: L60.1] Diagnosis: Other nail disorders[ICD10: L60.8] Tess Zelaya MD, [facility] CPT-4: 14500 08/08/2015 ([id number]) 23274 EST. 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 PATIENT, LEVEL III Diagnosis: Constipation, unspecified[ICD10: K59.00] Tess Zelaya MD, [facility] CPT-4: 73965 12/16/2014 ([id number]) 35837 EST. 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 PATIENT, LEVEL IV Diagnosis: Hypotension[ICD9: 458.9] Diagnosis: Diabetes mellitus type 2, uncontrolled[ICD9: 250.02] Diagnosis: Chronic renal disease, stage 4, severely decreased glomerular filtration rate between 15-29 mL/min/1.73 square meter[ICD9: 585.4] Catherine Zelaya MD, [facility] CPT-4: 99944 10/27/2014 ([id number]) 29723 EST. PATIENT, LEVEL III Diagnosis: Open wound of left foot[ICD9: 892.0] Diagnosis: DIABETES TYPE II[ICD9: 250.00] Shama Zelaya MD, [facility] CPT-4: 87659 09/06/2014 ([id number]) 90957 EST. PATIENT, LEVEL III Diagnosis: Nausea and vomiting[ICD9: 787.01] Diagnosis: DIABETES TYPE II[ICD9: 250.00] Catherine Zelaya MD, [facility] CPT- 4: 45494 08/02/2014 ([id number]) 81588 EST. PATIENT, LEVEL IV Diagnosis: Cough[ICD9: 786.2] Diagnosis: ACUTE BRONCHITIS[ICD9: 466.0] Diagnosis: Chronic renal disease, stage 4, severely decreased glomerular filtration rate (GFR) between 15-29 mL/min/1.73 square meter[ICD9: 585.4] Diagnosis: Hypotension[ICD9: 458.9] Catherine Zelaya MD, [facility] CPT-4: 02572 07/26/2014 ([id number]) 10936 EST. PATIENT, LEVEL IV Diagnosis: Hypotension[ICD9: 458.9] Diagnosis: DM W/O COMPLICATION TYPE II, UNCONTROLLED[ICD9: 250.02] Diagnosis: Acute renal failure superimposed on stage 4 chronic kidney disease[ ICD9: 584.9] Diagnosis: COUGH[ICD9: 786.2] Shama Zelaya MD, [facility] CPT-4: 81760 07/19/2014 ([id number]) 14798 EST. PATIENT, LEVEL IV Diagnosis: HEADACHE[ICD9: 784.0] Diagnosis: Nausea and vomiting[ICD9: 787.01] Diagnosis: Chronic renal failure, stage 4 (severe)[ICD9: 585.4] Catherine Zelaya MD, [facility] CPT-4: 68505 04/01/2014 ([id number]) 04854 EST. PATIENT, LEVEL IV Diagnosis: Diabetes mellitus type 2, uncontrolled[ICD9: 250.02] Diagnosis: HEADACHE[ICD9: 784.0] Diagnosis: Nausea[ICD9: 787.02] Diagnosis: Peripheral neuropathy[ICD9: 356.9] Catherine Zelaya MD, [facility] CPT-4: 16699 03/14/2014 ([id number]) 97470 EST. PATIENT, LEVEL IV Diagnosis: DIABETES TYPE II[ICD9: 250.00] Diagnosis: ESSENTIAL HYPERTENSION[ICD9: 401.9] Diagnosis: HYPOTHYROIDISM[ICD9: 244.9] Diagnosis: Gastroparesis[ICD9: 536.3] Catherine Zelaya MD, [facility] CPT- 4: 57790 02/21/2014 ([id number]) 61995 EST. PATIENT, LEVEL III Diagnosis: Neck pain[ICD9: 723.1] Diagnosis: Low back pain[ICD9: 724.2] Catherine Zelaya MD, [facility] CPT- 4: 18492 01/18/2014 ([id number]) 82374 EST. PATIENT, LEVEL IV Diagnosis: DM W/O COMPLICATION TYPE II, UNCONTROLLED[ICD9: 250.02] Diagnosis: ESSENTIAL HYPERTENSION[ICD9: 401.9] Catherine Zelaya MD, [facility] CPT-4: 61148 09/09/2013 ([id number]) 86418 EST. PATIENT, LEVEL III Diagnosis: Abdominal pain[ICD9: 789.00] Catherine Zelaya MD, [facility] CPT- 4: 40263 08/19/2013 ([id number]) 13045 EST. PATIENT, LEVEL IV Diagnosis: DM W/O COMPLICATION TYPE II, UNCONTROLLED[ICD9: 250.02] Diagnosis: ESSENTIAL HYPERTENSION[ICD9: 401.9] Catherine Zelaya MD, [facility] CPT-4: 56675 08/02/2013 ([id number]) 35686 EST. PATIENT, LEVEL IV Diagnosis: Orthostatic hypotension[ICD9: 458.0] Diagnosis: DM W/O COMPLICATION TYPE II, UNCONTROLLED[SNOMED: 18555448] Catherine Zelaya MD , [facility] CPT-4: 35805 07/08/2013 ([id number]) 80806 EST. PATIENT, LEVEL IV Diagnosis: ESSENTIAL HYPERTENSION[SNOMED: 00784364] Diagnosis: DM W/O COMPLICATION TYPE II, UNCONTROLLED[SNOMED: 74320507] Diagnosis: COUGH[ICD9: 786.2] Shama Zelaya MD, [facility] CPT-4: 27972 07/01/2013 ([id number]) 95379 EST. PATIENT, LEVEL IV Diagnosis: Diabetes mellitus type 2, uncontrolled[ICD9: 250.02] Diagnosis: ESSENTIAL HYPERTENSION[ICD9: 401.9] Catherine Zelaya MD, [facility] CPT-4: 22981 06/21/2013 ([id number]) 72619 EST. PATIENT, LEVEL IV Diagnosis: COUGH[ICD9: 786.2] Diagnosis: ESSENTIAL HYPERTENSION[SNOMED: 37812387] Diagnosis: ANEMIA[ICD9: 285.9] Diagnosis: Pneumonia[ICD9: 486] Catherine Zelaya MD, [facility] CPT-4: 15895 06/07/2013 ([id number]) Patient admitted to the hospital from clinic (NO CHARGE) Diagnosis: Acute renal failure[ICD9: 584.9] Diagnosis: Hypotension[ICD9: 458.9] Diagnosis: Nausea and vomiting[ICD9: 787.01] Diagnosis: DM W/O COMPLICATION TYPE II, UNCONTROLLED[SNOMED: 43266337] Diagnosis: Gastroenteritis[ICD9: 558.9] Diagnosis: Cough[ICD9: 786.2] Shama Zelaya MD, [facility] CPT-4: 07835G 05/17/2013 ([id number]) 21389 EST. PATIENT, LEVEL IV Diagnosis: DM W/O COMPLICATION TYPE II, UNCONTROLLED[SNOMED: 10854075] Diagnosis: ESSENTIAL HYPERTENSION[SNOMED: 74731950] Diagnosis: HYPOTHYROIDISM[ICD9: 244.9] Diagnosis: Diabetic peripheral neuropathy[ICD9: 250.60] Diagnosis: Encounter for long-term (current) use of other medications[ICD9: V58.69] Shama Zelaya MD, [facility] CPT-4: 89346 ([id number]) 65765 EST. PATIENT, LEVEL III Diagnosis: ESSENTIAL HYPERTENSION[SNOMED: 05561958] Diagnosis: DM W/O COMPLICATION TYPE II, UNCONTROLLED[SNOMED: 16101853] Catherine Zelaya MD , [facility] CPT-4: 79602 03/26/2013 ([id number]) 39495 EST. PATIENT, LEVEL IV Diagnosis: ESSENTIAL HYPERTENSION[SNOMED: 80509651] Diagnosis: CHEST PAIN[ICD9: 786.50] Diagnosis: DM W/O COMPLICATION TYPE II, UNCONTROLLED[SNOMED: 17089140] Shama Zelaya MD, [facility] CPT-4: 59360 03/16/2013 ([id number]) 75438 EST. PATIENT, LEVEL IV Diagnosis: DM W/O COMPLICATION TYPE II, UNCONTROLLED[SNOMED: 94197507] Diagnosis: ESSENTIAL HYPERTENSION[SNOMED: 22784535] Diagnosis: Noncompliance[ICD9: V15.81] Catherine Zelaya MD [facility] CPT- 4: 24584 03/09/2013 ([id number]) 14114 EST. PATIENT, LEVEL IV Diagnosis: DM W/O COMPLICATION TYPE II, UNCONTROLLED[SNOMED: 57975633] Diagnosis: ESSENTIAL HYPERTENSION[SNOMED: 83457114] Diagnosis: Abscess, dental[ICD9: 522.5] Catherine Zelaya MD [facility] CPT- 4: 06249 12/11/2012 ([id number]) 73960 EST. PATIENT, LEVEL IV Diagnosis: DM W/O COMPLICATION TYPE II, UNCONTROLLED[SNOMED: 06952009] Diagnosis: ESSENTIAL HYPERTENSION[SNOMED: 87001626] Diagnosis: HYPOTHYROIDISM[ICD9: 244.9] Catherine Zelaya MD [facility] CPT- 4: 25927 11/24/2012 ([id number]) 67358 EST. PATIENT, LEVEL IV Diagnosis: DM W/O COMPLICATION TYPE II, UNCONTROLLED[SNOMED: 63715755] Diagnosis: ESSENTIAL HYPERTENSION[SNOMED: 57725493] Diagnosis: COUGH[ICD9: 786.2] Diagnosis: Acute bronchitis[ICD9: 466.0] Catherine Zelaya MD [facility] CPT- 4: 55501 10/13/2012 ([id number]) 97568 EST. PATIENT, LEVEL IV Diagnosis: DM W/O COMPLICATION TYPE II, UNCONTROLLED[SNOMED: 62746690] Diagnosis: ESSENTIAL HYPERTENSION[SNOMED: 09228985] Diagnosis: Rib pain on left side[ICD9: 786.50] Diagnosis: Syncope[ICD9: 780.2] Catherine Zelaya MD [facility] CPT-4: 74073 09/17/2012 ([id number]) 14736 EST. PATIENT, LEVEL IV Diagnosis: DM W/O COMPLICATION TYPE II, UNCONTROLLED[SNOMED: 02244247] Diagnosis: HYPOTHYROIDISM[ICD9: 244.9] Catherine Zelaya MD [facility] CPT- 4: 14505 06/25/2012 [id number]) 37917 EST. PATIENT, LEVEL III Diagnosis: Orthostatic hypotension[ICD9: 458.0] Diagnosis: Fall at fpc[ICD9: E888.9] Catherine Zelaya MD [facility] CPT-4: 82206 06/15/2012 ([id number]) 60311 EST. PATIENT, LEVEL IV Diagnosis: DM W/O COMPLICATION TYPE II, UNCONTROLLED[SNOMED: 95094441] Diagnosis: HYPOTHYROIDISM[ICD9: 244.9] Diagnosis: ESSENTIAL HYPERTENSION[SNOMED: 12548311] Catherine Zelaya MD [facility] CPT-4: 45064 05/12/2012 ([id number]) 30086 EST. PATIENT, LEVEL IV Diagnosis: DM W/O COMPLICATION TYPE II, UNCONTROLLED[SNOMED: 22673612] Diagnosis: ESSENTIAL HYPERTENSION[SNOMED: 60699222] Diagnosis: LYMPHOMAS NEC EXTRANODAL/NOS[ICD9: 202.80] Diagnosis: HYPOTHYROIDISM[ICD9: 244.9] Catherine Zelaya MD [facility] CPT- 4: 46884 02/03/2012 ([id number]) 48277 EST. PATIENT, LEVEL IV Diagnosis: DM W/O COMPLICATION TYPE II, UNCONTROLLED[SNOMED: 08783188] Diagnosis: Mouth dryness[ICD9: 527.7] Diagnosis: COUGH[ICD9: 786.2] Catherine Zelaya MD [facility] CPT-4: 41264 01/02/2012 73594 EST. PATIENT, LEVEL IV Diagnosis: THRUSH[ICD9: 112.0] Diagnosis: COUGH[ICD9: 786.2] Diagnosis: DIABETES TYPE II[SNOMED: 888805588] Catherine Zelaya MD [facility] CPT-4: 85843 12/02/2011 ([id number]) 13400 EST. PATIENT, LEVEL IV Diagnosis: DM W/O COMPLICATION TYPE II, UNCONTROLLED[SNOMED: 18379256] Diagnosis: ESSENTIAL HYPERTENSION[SNOMED: 58356223] Diagnosis: COUGH[ICD9: 786.2] Diagnosis: Thrush[ICD9: 112.0] Catherine Zelaya MD [facility] CPT-4: 32644 11/21/2011 ([id number]) 05748 EST. PATIENT, LEVEL IV Diagnosis: DM W/O COMPLICATION TYPE II, UNCONTROLLED[SNOMED: 23076581] Diagnosis: ESSENTIAL HYPERTENSION[SNOMED: 27390826] Diagnosis: OBESITY[ICD9: 278.00] Catherine Zelaya MD [facility] CPT-4: 01046 10/24/2011 ([id number]) 65992 EST. PATIENT, LEVEL IV Diagnosis: ESSENTIAL HYPERTENSION[SNOMED: 77655546] Diagnosis: DM W/O COMPLICATION TYPE II, UNCONTROLLED[SNOMED: 57909918] Catherine Zelaya MD [facility] CPT-4: 03778 09/05/2011 ([id number]) 58005 EST. PATIENT, LEVEL IV Diagnosis: DM W/O COMPLICATION TYPE II, UNCONTROLLED[SNOMED: 32085657] Diagnosis: ESSENTIAL HYPERTENSION[SNOMED: 62330102] Diagnosis: LYMPHOMAS NEC EXTRANODAL/NOS[ICD9: 202.80] Catherine Zelaya MD [facility] CPT-4: 15284 07/08/2011 ([id number]) 39763 EST. PATIENT, LEVEL IV Diagnosis: DIABETES TYPE II[SNOMED: 139418591] Diagnosis: ESSENTIAL HYPERTENSION[SNOMED: 75980474] Diagnosis: Lymphoma[ICD9: 202.80] Catherine Zelaya MD [facility] CPT-4: 41786 06/24/2011 ([id number]) 54806 EST. PATIENT, LEVEL IV Diagnosis: Diabetes mellitus type 2, uncontrolled[SNOMED: 51837939] Diagnosis: ESSENTIAL HYPERTENSION[SNOMED: 99405238] Diagnosis: Depression[ICD9: 311] Catherine Zelaya MD [facility] CPT-4: 33150 04/23/2011 13223 EST. PATIENT, LEVEL IV Diagnosis: Mycoplasma pneumonia[ICD9: 483.0] Diagnosis: ESSENTIAL HYPERTENSION[SNOMED: 52726596] Diagnosis: DIABETES TYPE II[SNOMED: 320211383] Diagnosis: Cough[ICD9: 786.2] Catherine Zelaya MD, [facility] CPT-4: 37073 10/24/2010 Plan of Care Planned Activity Notes Codes Status Date Appointment: Shaam Copeland WPtel: [address] [place], [place] [phone] (10 min) Simple 01/28/2017 Visit Plan: Diabetes Mellitus - I have recommended for the patient to have follow up labs prior to the next office visit. The patient has been instructed to continue with current medications as previously directed, continue with regular FSBS monitoring to assure continued control of diabetes. Pt to call for any acute concerns, complaints, or if the blood glucose readings are starting to become less controlled. HTN-elevated today-no medications changes-continue to monitor Renal failure-on dialysis 01/21/2017 Appointment: Shama Copeland WPtel: [facility] [phone] (30 min) Complex 01/21/2017 Patient Education: Patient Medication Summary Completed 01/21/2017 Appointment: Shama Copeland WPtel: [facility] [phone] (30 min) Complex 01/16/2017 Visit Plan: Hypertension - well controlled - continue with current medications, continue with no added salt diet. Pt has been encouraged to exercise daily. The pt has been advised to call the office if there are any acute concerns about change in blood pressure readings at home. Esophageal Reflux - the patient has been counseled against excessive intake of caffeine, spicy foods, peppermint, and cinnamon - all of which can exacerbate esophageal reflux. The patient is to take medications as prescribed and call the office if the symptoms are not improving. Low back pain-refill hydrocodone Hypothyroidism - pt with chronic hypothyroidism, continue with current medication, will monitor pt to signs or symptoms of lack of adequate supplementation. Pt is to continue with current dose of medication unless directed otherwise. Check labs at regular intervals wither q 3 months or q 6 months based on previous levels of control. 10/11/2016 Patient Education: Patient Medication Summary Completed 10/11/2016 Appointment: Shama Copeland WPtel: [facility] [phone] (30 min) Complex 10/08/2016 Visit Plan: Hypertension - well controlled - continue with current medications, continue with no added salt diet. Pt has been encouraged to exercise daily. The pt has been advised to call the office if there are any acute concerns about change in blood pressure readings at home. 08/09/2016 Appointment: Shama Copeland WPtel: [facility] [phone] (30 min) Complex 08/09/2016 Patient Education: Patient Medication Summary Completed 08/09/2016 Visit Plan: HTN-continue medications as directed-monitor blood pressure TID at home and call with readings. ER for chest pain, SOA, etc. Patient verbalized understanding of plan. 07/11/2016 Appointment: Shama Copeland WPtel: [facility] [phone] (30 min) Complex 07/11/2016 Patient Education: Patient Medication Summary Completed 07/11/2016 Patient Education: Hypertension Completed 07/11/2016 Visit Plan: Hypertension - uncontrolled - the patient's medications have been modified as documented in the visit note. The patient has been counseled to cut back on salt in diet for a no added salt diet, low fat diet, start an exercise program with low weight bearing exercises and higher aerobic activity for heart health. The patient is to check blood pressure readings as an outpatient and either fax, call, or email the readings to the office next week for practitioner to review. The pt is to call for acute concerns. 07/01/2016 Appointment: Shama Copeland WPtel: [facility] [phone] (30 min) Complex 07/01/2016 Patient Education: Patient Medication Summary Completed 07/01/2016 Appointment: Shama Cpoeland WPtel: [address] [place], [place] [phone] (30 min) Complex 06/06/2016 Visit Plan: Constipation-increase lactulose to TID Hypothyroidism-patient not taking medication-unsure when he stopped it but thinks it-RX sent to patient's pharmacy and instructed on use-f/u in 1 month with labs 06/03/2016 Appointment: Shama Copeland WPtel: [facility] [phone] (30 min) Complex 06/03/2016 Patient Education: Patient Medication Summary Completed 06/03/2016 Visit Plan: Esophageal Reflux - the patient has been counseled against excessive intake of caffeine, spicy foods, peppermint, and cinnamon - all of which can exacerbate esophageal reflux. The patient is to take medications as prescribed and call the office if the symptoms are not improving. Constipation - uncontrolled - I have discussed with the patient the need for adequate fiber and water intake to facilitate soft, easily passed stools. The pt noted understanding of our conversation. The pt is to call if symptoms not improved on this regimen. 05/20/2016 Appointment: Shama Copeland WPtel: [id number] [phone] (30 min) Complex 05/20/2016 Patient Education: Patient Medication Summary Completed 05/20/2016 Visit Plan: Hypertension - well controlled - continue with current medications, continue with no added salt diet. Pt has been encouraged to exercise daily. The pt has been advised to call the office if there are any acute concerns about change in blood pressure readings at home. Carotid stenosis -worsening-appt with Dr Tony next week DM with diabetic nephropathy-on dialysis-recommend patient check blood sugars routinely 05/07/2016 Appointment: Shama Copeland WPtel: [phone] [phone] (30 min) Complex 05/07/2016 Patient Education: Patient Medication Summary Completed 05/07/2016 Visit Plan: Cough-on keflex-discussed with Dr Zelaya- will add zpack -instructed patient to call or go to ER if symptoms do not completely resolve or if ANY worse. Patient and verbalized understanding of plan. Vomiting-RX for phenergan provided and instructed on use-call if unable to keep fluids down 04/23/2016 Patient Education: Patient Medication Summary Completed 04/23/2016 Visit Plan: Urinary retention - aly catheter in place - 10 mL saline removed from ballon and catheter removed, pt tolerated procedure well. Pt is to notify clinic or go to ER if urinary retention reoccurs, with any pain, discharge, bleeding, or with any other questions or concerns. 04/22/2016 Appointment: Tess uRsso WPtel: [phone] [phone] (30 min) Complex 04/22/2016 Patient Education: Patient Medication Summary Completed 04/22/2016 Visit Plan: HTN-elevated today but unable to increase medications due to orthostasis-continue same medications-monitor blood pressure and pulse at home and call with any concerns. Patient verbalized understanding of plan. End stage renal disease-on peritoneal dialysis Hypothyroidism - pt with chronic hypothyroidism, continue with current medication, will monitor pt to signs or symptoms of lack of adequate supplementation. Pt is to continue with current dose of medication unless directed otherwise. Check labs at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 and monitor symptoms. Meanwhile we will check urine to see if there is evidence of infection, and perhaps check uric acid levels. Check UA - send pt for labs at hospital, and for urine straining. 08/19/2013 Appointment: Catherine Zelaya WPtel: [facility] [place] [place] [id number] Follow up 08/19/2013 Patient Education: Patient Medication Summary Completed 08/19/2013 Visit Plan: Diabetes Mellitus - Uncontrolled - per recent FSBS reports. I have recommended for the patient to have follow up labs prior to the next office visit. The patient has been instructed to continue with current medications as previously directed, continue with regular FSBS monitoring to assure continued control of diabetes. Pt to call for any acute concerns, complaints, or if the blood glucose readings are starting to become less controlled. I have recommended for the patient to follow more strictly to the diabetic diet as discussed in clinic to allow for greater blood glucose control. Pt is to restart the levemir and apidra pt is to stop the glipizide. the sliding scale is to get the blood glucose levels to a more acceptable level. He is to use the sliding scale A for uncontrolled blood glucose levels. he is to check his FSBS 2 hours after meals, if his FSBS is as follows: FSBS >/= to 150 - 200, give 3 units of regular insulin, FSBS >/=to 201 - 250, give 6 units of regular insulin, FSBS >/=to 251 - 300, give 9 units of regular insulin , FSBS >/=to 300 - 351, give 9 units of regular insulin, FSBS >/=to 351 - 400, give 12 units of regular insulin, if FSBS is >/=to 401 give 15 units of regular insulin, and repeat FSBS in 1 hour, and follow sliding scale, if the FSBS is taken right before bed and you are giving yourself insulin, you MUST check the FSBS in an hour to avoid the blood glucose level going too low and risking significant health problems from too low of a blood glucose level. I discussed this IN DETAIL - with Bobby and Queta - we will have him report his FSBS to the office. I also discussed the NECESSITY of Bobby taking more care with cleanliness and needing to find better shampoo with which to wash his hair.. As he progresses with different chemotherapy treatments, he has to be clean, and avoid any potential for self infection with lack of cleanliness. HTN - no change in medications - will defer to Dr. Goncalves for treatment of his blood pressure as Bobby has had a severe drop in BP to hypotensive episodes. I spent over 45 minutes with Queta and Bobby working out his new FSBS regimen, sliding scale regimen, and adjustments of his medications for glucose control. I have reiterated the need for Queta and Bobby to BOTH be in attendance at Chris appointments as he is having trouble remembering instructions. I have also recommended that they ask for written instructions if any medications or specific recommendations have been made to change Bobby's care. 08/02/2013 Appointment: Catherine Zelaya WPtel: [facility] [place] Follow up 08/02/2013 Patient Education: Patient Medication Summary Completed 08/02/2013 Patient Education: Hypertension Completed 08/02/2013 Visit Plan: Orthostatic hypotension-discussed with patient- monitor blood pressure and pulse at home-call next week with readings-will decrease medications if blood pressure low enough. Discussed changing positions slowly-pumping legs for 1 minute before getting up, etc. Patient verbalized understanding of plan. GZ-dwjqapenwajd-wmsqw more strict adherence to diabetic diet-keep glucomenter and supplies with him at ALL times. Bring in blood sugar log in 2 weeks. Chronic renal disease-check labs. 07/08/2013 Appointment: Shama Copeland [facility]Ptel: [phone] [place] Other 07/08/2013 Patient Education: Patient Medication Summary Completed 07/08/2013 Visit Plan: Hypertension - well controlled - continue with current medications, continue with no added salt diet. Pt has been encouraged to exercise daily. The pt has been advised to call the office if there are any acute concerns about change in blood pressure readings at home. Diabetes Mellitus - Uncontrolled - per recent FSBS reports. I have recommended for the patient to have follow up labs prior to the next office visit. The patient has been instructed to continue with current medications as previously directed, continue with regular FSBS monitoring to assure continued control of diabetes. Pt to call for any acute concerns, complaints, or if the blood glucose readings are starting to become less controlled. I have recommended for the patient to follow more strictly to the diabetic diet as discussed in clinic to allow for greater blood glucose control. Cough-resolved except for occasional cough or shortness of breath returns-lungs clear-call if cough returns. 07/01/2013 Appointment: Shama Copeland WPtel: [phone] [place] Follow up 07/01/2013 Patient Education: Patient Medication Summary Completed 07/01/2013 Patient Education: Hypertension Completed 07/01/2013 Visit Plan: Diabetes Mellitus - Uncontrolled - per recent FSBS reports. I have recommended for the patient to have follow up labs prior to the next office visit. The patient has been instructed to continue with current medications as previously directed, continue with regular FSBS monitoring to assure continued control of diabetes. Pt to call for any acute concerns, complaints, or if the blood glucose readings are starting to become less controlled. I have recommended for the patient to follow more strictly to the diabetic diet as discussed in clinic to allow for greater blood glucose control. increase levemir to 30 units twice daily increase apidra to 10 units with meals. Hypertension - uncontrolled - the patient's medications have been modified as documented in the visit note. The patient has been counseled to cut back on salt in diet for a no added salt diet, low fat diet, start an exercise program with low weight bearing exercises and higher aerobic activity for heart health. The patient is to check blood pressure readings as an outpatient and either fax, call, or email the readings to the office next week for practitioner to review. The pt is to call for acute concerns. hold amlodipine x 3 weeks RTC in 2 weeks with shama bring in blood glucose readings, and blood pressure machine 06/21/2013 Appointment: Catherine Zelaya WPtel: [address] [place], [place] [id number] Follow up 06/21/2013 Patient Education: Patient Medication Summary Completed 06/21/2013 Patient Education: Hypertension Completed 06/21/2013 Appointment: Shama Copeland WPtel: [facility] [place] [place] [address] Hospital follow up 06/11/2013 Visit Plan: Zhfjjebiq-mobidwdh-cpxbsq follow up chest xray to ensure resolution of pneumonia Hypertension - well controlled - continue with current medications, continue with no added salt diet. Pt has been encouraged to exercise daily. The pt has been advised to call the office if there are any acute concerns about change in blood pressure readings at home. Anemia-kidney disease-check labs 06/07/2013 Appointment: Shama Copeland WPtel: [address] [place], [place] [id number] [facility] 06/07/2013 Patient Education: Patient Medication Summary Completed 06/07/2013 Patient Education: Hypertension Completed 06/07/2013 Appointment: Shama Copeland WPtel: [facility] [phone] Follow up 05/31/2013 Visit Plan: Admission to Hospital - acute renal failure, uncontrolled diabetes, hypotension, nausea and vomiting. Pt has diagnosis of acute illness necessitating hospital admission from the clinic. I have discussed the diagnosis and need for further work-up and acute hospital stay for the patient's health benefit. 05/17/2013 Visit Plan: Admission to Hospital - acute renal failure, uncontrolled diabetes, hypotension, nausea and vomiting. Pt has diagnosis of acute illness necessitating hospital admission from the clinic. I have discussed the diagnosis and need for further work-up and acute hospital stay for the patient's health benefit. Pt is a known and extremely noncompliant diabetic patient with a hgba1c of 11. The patient is most-likely dehydrated leading to the acute renal failure. We will hydrate the patient, check serum acetone levels, check other labs - and may end up on antibiotics if appropriate. Pt is very high risk - he has been extremely noncompliant with dietary restrictions, and he may have diabetic gastroparesis leading to his nausea and emesis. There has, however, been a lot of gastrointestinal illness in the community - so we cannot rule out the possibility of the patient having gastroenteritis - monitor symptoms on zofran and phenergan. Chronic cough - pt had radiation to his head and neck due to cancer - the cough is chronic, not pulmonary - montior symptoms. Diabetes - restart home medications, and sliding scale B. Hypotension - will review patient's home medicaitons, and will slowly restart the medications as he shows improvement in his blood pressures once Bobby is appropriately hydrated. Dr. Zelaya formulated the assessment and plan on this note. 05/17/2013 Patient Education: Patient Medication Summary Completed 05/17/2013 Visit Plan: Diabetes Mellitus - I have recommended for the patient to have follow up labs prior to the next office visit. The patient has been instructed to continue with current medications as previously directed, continue with regular FSBS monitoring to assure continued control of diabetes. Pt to call for any acute concerns, complaints, or if the blood glucose readings are starting to become less controlled. I have recommended for the patient to follow more strictly to the diabetic diet as discussed in clinic to allow for greater blood glucose control. Hypertension - well controlled - continue with current medications, continue with no added salt diet. Pt has been encouraged to exercise daily. The pt has been advised to call the office if there are any acute concerns about change in blood pressure readings at home. Hypothyroidism- check labs Neuropathy-start neurontin at bedtime 04/29/2013 Appointment: Shama Copeland WPtel: [facility] [phone] Follow up 04/29/2013 Patient Education: Patient Medication Summary Completed 04/29/2013 Patient Education: Hypertension Completed 04/29/2013 Appointment: Catherine Zelaya WPtel: [address] [place], [place] [id number] Follow up 04/22/2013 Visit Plan: Hypertension - well controlled - continue with current medications, continue with no added salt diet. Pt has been encouraged to exercise daily. The pt has been advised to call the office if there are any acute concerns about change in blood pressure readings at home. DM-uncontrolled- check Hgb A1C 03/26/2013 Appointment: Shama Copeland WPtel: [facility] [phone] Follow up 03/26/2013 Patient Education: Patient Medication Summary Completed 03/26/2013 Patient Education: Hypertension Completed 03/26/2013 Visit Plan: WYJ-kosopzakewjh-JHGLIXVS AMLODIPINE TO 5MG 2 PILLS DAILY-MONITOR BLOOD PRESSURE AND PULSE AT HOME AND CALL WITH READINGS ON FRIDAY. Follow up in the office in 10 days. Go to ER for chest pain, shortness of breath, headaches, or other concerns. APPOINTMENT WITH DR GONCALVES Diabetes Mellitus - Uncontrolled - per recent FSBS reports. I have recommended for the patient to have follow up labs prior to the next office visit. The patient has been instructed to continue with current medications as previously directed, continue with regular FSBS monitoring to assure continued control of diabetes. Pt to call for any acute concerns, complaints, or if the blood glucose readings are starting to become less controlled. I have recommended for the patient to follow more strictly to the diabetic diet as discussed in clinic to allow for greater blood glucose control. 03/16/2013 Appointment: Catherine Zelaya WPtel: [address] [place], [place] [phone] [facility] follow up 03/16/2013 Appointment: Shama Copeland WPtel: [facility] [phone] Follow up 03/16/2013 Patient Education: Patient Medication Summary Completed 03/16/2013 Patient Education: Hypertension Completed 03/16/2013 Visit Plan: Diabetes Mellitus - Uncontrolled - per recent FSBS reports. I have recommended for the patient to have follow up labs prior to the next office visit. The patient has been instructed to continue with current medications as previously directed, continue with regular FSBS monitoring to assure continued control of diabetes. Pt to call for any acute concerns, complaints, or if the blood glucose readings are starting to become less controlled. I have recommended for the patient to follow more strictly to the diabetic diet as discussed in clinic to allow for greater blood glucose control. Pt is wildly uncontrolled - he does not follow diabetic diet. Hypertension - uncontrolled - the patient's medications have been modified as documented in the visit note. The patient has been counseled to cut back on salt in diet for a no added salt diet, low fat diet, start an exercise program with low weight bearing exercises and higher aerobic activity for heart health. The patient is to check blood pressure readings as an outpatient and either fax , call, or email the readings to the office next week for practicioner to review. The pt is to call for acute concerns. 03/09/2013 Appointment: Catherine Zelaya [facility]Ptel: [facility] [place] Follow up 03/09/2013 Patient Education: Patient Medication Summary Completed 03/09/2013 Patient Education: Hypertension Completed 03/09/2013 Appointment: Shama Copeland WPtel: [facility] [phone] [place] Follow up 02/02/2013 Appointment: Catherine Zelaya WPtel: [facility] [facility] [place] Follow up 01/26/2013 Appointment: Catherine Zelaya WPtel: [facility] [facility] [place] Follow up 01/11/2013 Appointment: Catherine Zelaya WPtel: 101[address] [facility] [place] Follow up 12/24/2012 Visit Plan: Diabetes Mellitus - I have recommended for the patient to have follow up labs prior to the next office visit. The patient has been instructed to continue with current medications as previously directed, continue with regular FSBS monitoring to assure continued control of diabetes. Pt to call for any acute concerns, complaints, or if the blood glucose readings are starting to become less controlled. Hypertension - well controlled - continue with current medications, continue with no added salt diet. Pt has been encouraged to exercise daily. The pt has been advised to call the office if there are any acute concerns about change in blood pressure readings at home. Dental abscess-RX for clindamycin-patient is having teeth pulled next week 12/11/2012 Appointment: Shama Copeland [facility]Ptel: [phone] Follow up 12/11/2012 Patient Education: Patient Medication Summary Completed 12/11/2012 Patient Education: Hypertension Completed 12/11/2012 Visit Plan: Diabetes Mellitus - Uncontrolled - per recent FSBS reports. I have recommended for the patient to have follow up labs prior to the next office visit. The patient has been instructed to continue with current medications as previously directed, continue with regular FSBS monitoring to assure continued control of diabetes. Pt to call for any acute concerns, complaints, or if the blood glucose readings are starting to become less controlled. I have recommended for the patient to follow more strictly to the diabetic diet as discussed in clinic to allow for greater blood glucose control. pt is to INCREASE LEVEMIR TO 110 UNITS TWICE DAILY. PT IS TO INCREASE APIDRA TO 70 UNITS BREAKFAST, 70 UNITS WITH LUNCH AND 60 AT SUPPER. HTN - not optimally controlled - start on low dose lisinopril 5mg daily. Hypothyroidism - pt with chronic hypothyroidism, continue with current medication, will monitor pt to signs or symptoms of lack of adequate supplementation. Pt is to continue with current dose of medication unless directed otherwise. Check labs at regular intervals wither q 3 months or q 6 months based on previous levels of control. check thyroid labs today. 11/24/2012 Appointment: Catherine Zelaya WPtel: [facility] [place] [place] Follow up 11/24/2012 Patient Education: Patient Medication Summary Completed 11/24/2012 Patient Education: Hypertension Completed 11/24/2012 Appointment: Catherine Zelaya WPtel: 101[address] [facility] [place] Follow up 11/17/2012 Appointment: Catherine Zelaya [facility]Ptel: [facility] [place] Injection 11/10/2012 Patient Education: Patient Medication Summary Completed 11/10/2012 Visit Plan: Diabetes Mellitus - Uncontrolled - per recent FSBS reports. I have recommended for the patient to have follow up labs prior to the next office visit. The patient has been instructed to continue with current medications as previously directed, continue with regular FSBS monitoring to assure continued control of diabetes. Pt to call for any acute concerns, complaints, or if the blood glucose readings are starting to become less controlled. I have recommended for the patient to follow more strictly to the diabetic diet as discussed in clinic to allow for greater blood glucose control. Hypertension - well controlled - continue with current medications, continue with no added salt diet. Pt has been encouraged to exercise daily. The pt has been advised to call the office if there are any acute concerns about change in blood pressure readings at home. Bronchitis - acute case of bronchitis identified. Pt has been given antibiotics, breathing treatments as appropriate, and pt has been instructed to call if symptoms are not improved, or if symptoms acutely worsen. 10/13/2012 Appointment: Shama Copeland WPtel: [address] [phone] Follow up 10/13/2012 Patient Education: Patient Medication Summary Completed 10/13/2012 Patient Education: Hypertension Completed 10/13/2012 Visit Plan: Diabetes Mellitus - I have recommended for the patient to have follow up labs prior to the next office visit. The patient has been instructed to continue with current medications as previously directed, continue with regular FSBS monitoring to assure continued control of diabetes. Pt to call for any acute concerns, complaints, or if the blood glucose readings are starting to become less controlled. Hypertension - well controlled - continue with current medications, continue with no added salt diet. Pt has been encouraged to exercise daily. The pt has been advised to call the office if there are any acute concerns about change in blood pressure readings at home. Rib pain-recent fall-xray ribs Syncope-check carotid doppler-monitor blood pressure and blood sugars closely-follow up in 2 weeks. 09/17/2012 Appointment: Shama Copeland WPtel: [address] [phone] [place] Other 09/17/2012 Patient Education: Patient Medication Summary Completed 09/17/2012 Patient Education: Hypertension Completed 09/17/2012 Appointment: Catherine Zelaya [facility]Ptel: [facility] Follow [facility] 08/03/2012 Appointment: Garcia Catherine WPtel: 101[address] [facility] [place] Follow up 07/14/2012 Visit Plan: Diabetes Mellitus - Uncontrolled - per recent FSBS reports. I have recommended for the patient to have follow up labs prior to the next office visit. The patient has been instructed to continue with current medications as previously directed, continue with regular FSBS monitoring to assure continued control of diabetes. Pt to call for any acute concerns, complaints, or if the blood glucose readings are starting to become less controlled. I have recommended for the patient to follow more strictly to the diabetic diet as discussed in clinic to allow for greater blood glucose control. APIDRA DOSING FOLLOWS: 60 UNITS IN MORNING WITH MEAL 65 UNITS AT LUNCH WITH MEAL 55 UNITS AT SUPPER LEVEMIR TO BE CHANGED FOLLOWS: 100 UNITS IN MORNING WITH MEAL 90 UNITS AT SUPPER WITH MEAL Hypothyroid - pt has been taking his medicationat the same tiem as food and other medications - he has been instructed as follows: TAKE THYROID MEDICATION SOON YOU WAKE UP IN THE MORNING - NEED ONE HOUR AFTER TAKING THE THYROID MEDICATION BEFORE EATING OR TAKING OTHER MEDICATION. 06/25/2012 Appointment: Catherine Zelaya [facility]Ptel[facility] [facility] 06/25/2012 Patient Education: Patient Medication Summary Completed 06/25/2012 Visit Plan: Orthostatic hypotension - recommended pt to change his toprol to 25mg ONE time daily,and report blood pressures to clinic on of this week. [facility], I have recommended that he have a CT scan of his head, he still has some facial pain from his fall, he has increased risk of a bleed intracranially due to his blood thinner medication and this should be investigated fully as Bobby has MULTIPLE comorbid conditions and recent diagnosis of lymphoma. 06/15/2012 Patient Education: Patient Medication Summary Completed 06/15/2012 Visit Plan: Diabetes Mellitus - Uncontrolled - per recent FSBS reports. I have recommended for the patient to have follow up labs prior to the next office visit. The patient has been instructed to continue with current medications as previously directed, continue with regular FSBS monitoring to assure continued control of diabetes. Pt to call for any acute concerns, complaints, or if the blood glucose readings are starting to become less controlled. I have recommended for the patient to follow more strictly to the diabetic diet as discussed in clinic to allow for greater blood glucose control. Hypothyroidism - pt with chronic hypothyroidism, continue with current medication, will monitor pt to signs or symptoms of lack of adequate supplementation. Pt is to continue with current dose of medication unless directed otherwise. Check labs at regular intervals wither q 3 months or q 6 months based on previous levels of control. Hypertension - well controlled - continue with current medications, continue with no added salt diet. Pt has been encouraged to exercise daily. The pt has been advised to call the office if there are any acute concerns about change in blood pressure readings at home. 05/12/2012 Appointment: Shama Copeland [facility]el[phone] [facility] Follow up 05/12/2012 Patient Education: Patient Medication Summary Completed 05/12/2012 Patient Education: Hypertension Completed 05/12/2012 Visit Plan: Diabetes Mellitus - Uncontrolled - per recent FSBS reports. I have recommended for the patient to have follow up labs prior to the next office visit. The patient has been instructed to continue with current medications as previously directed, continue with regular FSBS monitoring to assure continued control of diabetes. Pt to call for any acute concerns, complaints, or if the blood glucose readings are starting to become less controlled. I have recommended for the patient to follow more strictly to the diabetic diet as discussed in clinic to allow for greater blood glucose control. Hypothyroidism- plan to change to synthroid once we get a new tsh level , pts last level went from 3.7 in august to 108 in december Lymphoma - continue with treatment regimen per oncologist. 02/03/2012 Appointment: [phone] [facility] [facility] up 02/03/2012 Patient Education: Patient Medication Summary Completed 02/03/2012 Patient Education: Hypertension Completed 02/03/2012 Visit Plan: Diabetes Mellitus - Uncontrolled - per recent FSBS reports. I have recommended for the patient to have follow up labs prior to the next office visit. The patient has been instructed to continue with current medications as previously directed, continue with regular FSBS monitoring to assure continued control of diabetes. Pt to call for any acute concerns, complaints, or if the blood glucose readings are starting to become less controlled. I have recommended for the patient to follow more strictly to the diabetic diet as discussed in clinic to allow for greater blood glucose control. Apidra increased to 45 units with meals, levemir increased to 55 units in morning and 85 units at evening. Cough and URI - Pt advised to increase fluids, vitamin C. Discussed natural and expected course of this diagnosis and need to alert me if symtpoms do not follow expected course, or if any worse. RX sent to patient's pharmacy. 01/02/2012 Appointment: Catherine Zelaya [facility]Ptel[phone] [facility] Follow up 01/02/2012 Patient Education: Patient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 blood pressure readings at home. Diabetes Mellitus - controlled - per recent FSBS reports. I have recommended for the patient to have follow up labs prior to the next office visit. The patient has been instructed to continue with current medications as previously directed, continue with regular FSBS monitoring to assure continued control of diabetes. Pt to call for any acute concerns, complaints, or if the blood glucose readings are starting to become less controlled. Renal failure-sees siding stapler-going to start dialysis friday Hypothyroidism-check labs increase NEURONTIN (generic name is gabapentin) - increase to one pill three times daily. . Diabetes Mellitus - Uncontrolled - per recent FSBS reports. I have recommended for the patient to have follow up labs prior to the next office visit. The patient has been instructed to continue with current medications as previously directed, continue with regular FSBS monitoring to assure continued control of diabetes. Pt to call for any acute concerns, complaints, or if the blood glucose readings are starting to become less controlled. I have recommended for the patient to follow more strictly to the diabetic diet as discussed in clinic to allow for greater blood glucose control. Peripheral neuropathy- uncontrolled - increase neurontin to 100mg three times daily. Headache - pt to see neurologist tomorrow. Nausea - due to hydrocodone, pt to stop hydrocodone. . Hypertension - well controlled - continue with current medications, continue with no added salt diet. Pt has been encouraged to exercise daily. The pt has been advised to call the office if there are any acute concerns about change in blood pressure readings at home. Esophageal Reflux - the patient has been counseled against excessive intake of caffeine, spicy foods, peppermint, and cinnamon - all of which can exacerbate esophageal reflux. The patient is to take medications as prescribed and call the office if the symptoms are not improving. Low back pain-refill hydrocodone Hypothyroidism - pt with chronic hypothyroidism, continue with current medication, will monitor pt to signs or symptoms of lack of adequate supplementation. Pt is to continue with current dose of medication unless directed otherwise. Check labs at regular intervals wither q 3 months or q 6 months based on previous levels of control. . Diabetes Mellitus - Uncontrolled - per recent FSBS reports. I have recommended for the patient to have follow up labs prior to the next office visit. The patient has been instructed to continue with current medications as previously directed, continue with regular FSBS monitoring to assure continued control of diabetes. Pt to call for any acute concerns, complaints, or if the blood glucose readings are starting to become less controlled. I have recommended for the patient to follow more strictly to the diabetic diet as discussed in clinic to allow for greater blood glucose control. Increase the levemir to 40 units in the morning and 75 units at bedtime. Hypertension - well controlled - continue with current medications, continue with no added salt diet. Pt has been encouraged to exercise daily. The pt has been advised to call the office if there are any acute concerns about change in blood pressure readings at home. Obesity - chronic issue with this patient. The pt has been counseled about diet changes, calorie restriction, and need to exercise. Pt will RTC in one month for weight check. . Hypertension - well controlled - continue with current medications, continue with no added salt diet. Pt has been encouraged to exercise daily. The pt has been advised to call the office if there are any acute concerns about change in blood pressure readings at home. Diabetes Mellitus - I have recommended for the patient to have follow up labs prior to the next office visit. The patient has been instructed to continue with current medications as previously directed, continue with regular FSBS monitoring to assure continued control of diabetes. Pt to call for any acute concerns, complaints, or if the blood glucose readings are starting to become less controlled. Hypothyroidism - pt with chronic hypothyroidism, continue with current medication, will monitor pt to signs or symptoms of lack of adequate supplementation. Pt is to continue with current dose of medication unless directed otherwise. Check labs at regular intervals wither q 3 months or q 6 months based on previous levels of control. Renal failure-on dialysis increase levemir to 30 units twice daily increase apidra to 10 units with meals. hold amlodipine x 3 weeks RTC in 2 weeks with shama bring in blood glucose readings, and blood pressure machine . Diabetes Mellitus - Uncontrolled - per recent FSBS reports. I have recommended for the patient to have follow up labs prior to the next office visit. The patient has been instructed to continue with current medications as previously directed, continue with regular FSBS monitoring to assure continued control of diabetes. Pt to call for any acute concerns, complaints, or if the blood glucose readings are starting to become less controlled. I have recommended for the patient to follow more strictly to the diabetic diet as discussed in clinic to allow for greater blood glucose control. increase levemir to 30 units twice daily increase apidra to 10 units with meals. Hypertension - uncontrolled - the patient's medications have been modified as documented in the visit note. The patient has been counseled to cut back on salt in diet for a no added salt diet, low fat diet, start an exercise program with low weight bearing exercises and higher aerobic activity for heart health. The patient is to check blood pressure readings as an outpatient and either fax , call, or email the readings to the office next week for practitioner to review. The pt is to call for acute concerns. hold amlodipine x 3 weeks RTC in 2 weeks with shama bring in blood glucose readings, and blood pressure machine CONTINUE PROTONIX RTC IF PAIN WORSENS OR DOES NOT SUBSIDE WITHIN THE NEXT WEEK CONSIDER LINZESS FOR CONSTIPATION . Esophageal Reflux - the patient has been counseled against excessive intake of caffeine, spicy foods, peppermint, and cinnamon - all of which can exacerbate esophageal reflux. The patient is to take medications as prescribed and call the office if the symptoms are not improving. Constipation - uncontrolled - I have discussed with the patient the need for adequate fiber and water intake to facilitate soft, easily passed stools. The pt noted understanding of our conversation. The pt is to call if symptoms not improved on this regimen. . Hypertension - well controlled - continue with current medications, continue with no added salt diet. Pt has been encouraged to exercise daily. The pt has been advised to call the office if there are any acute concerns about change in blood pressure readings at home. . Ulcer of foot-refer to wound care-use medihoney and change dressing daily until seen by wound care Diabetes Mellitus - I have recommended for the patient to have follow up labs prior to the next office visit. The patient has been instructed to continue with current medications as previously directed, continue with regular FSBS monitoring to assure continued control of diabetes. Pt to call for any acute concerns, complaints, or if the blood glucose readings are starting to become less controlled. I have recommended for the patient to follow more strictly to the diabetic diet as discussed in clinic to allow for greater blood glucose control. . Hypertension - well controlled - continue with current medications, continue with no added salt diet. Pt has been encouraged to exercise daily. The pt has been advised to call the office if there are any acute concerns about change in blood pressure readings at home. End stage renal disease-patient to start dialysis soon Diabetes Mellitus - I have recommended for the patient to have follow up labs prior to the next office visit. The patient has been instructed to continue with current medications as previously directed, continue with regular FSBS monitoring to assure continued control of diabetes. Pt to call for any acute concerns, complaints, or if the blood glucose readings are starting to become less controlled. Pneumonia-recently hospitalized-symptoms improved Hypoxemia-patient qualified in the hospital with oxygen saturation in the 80%'s- will obtain hospital records-concentrator ordered through [employer] while an inpatient-patient wants to get portable oxygen since his oxygen level declines with activity. . Hypertension - well controlled - continue with current medications, continue with no added salt diet. Pt has been encouraged to exercise daily. The pt has been advised to call the office if there are any acute concerns about change in blood pressure readings at home. End stage renal disease-patient to start dialysis soon Diabetes Mellitus - I have recommended for the patient to have follow up labs prior to the next office visit. The patient has been instructed to continue with current medications as previously directed, continue with regular FSBS monitoring to assure continued control of diabetes. Pt to call for any acute concerns, complaints, or if the blood glucose readings are starting to become less controlled. Pneumonia-recently hospitalized-symptoms improved Hypoxemia-patient qualified in the hospital with oxygen saturation in the 80%'s- will obtain hospital records-concentrator ordered through [employer] while an inpatient-patient wants to get portable oxygen since his oxygen level declines with activity. . + glucose, + blood, no nitrites, no leukocytes, no culture indicated. . Eicszgokj-mjgggohp-yvdqzb follow up chest xray to ensure resolution of pneumonia Hypertension - well controlled - continue with current medications, continue with no added salt diet. Pt has been encouraged to exercise daily. The pt has been advised to call the office if there are any acute concerns about change in blood pressure readings at home. Anemia-kidney disease-check labs CBC, CMP, TSH, Free T4. Diabetes Mellitus - I have recommended for the patient to have follow up labs prior to the next office visit. The patient has been instructed to continue with current medications as previously directed, continue with regular FSBS monitoring to assure continued control of diabetes. Pt to call for any acute concerns, complaints, or if the blood glucose readings are starting to become less controlled. I have recommended for the patient to follow more strictly to the diabetic diet as discussed in clinic to allow for greater blood glucose control. Hypertension - well controlled - continue with current medications, continue with no added salt diet. Pt has been encouraged to exercise daily. The pt has been advised to call the office if there are any acute concerns about change in blood pressure readings at home. Hypothyroidism-check labs Neuropathy-start neurontin at bedtime APPOINTMENT WITH FL[employer] TEST SUPERVISOR DECREASE YOUR CARVEDILOL TO 1/2 TAB TWICE DAILY . Hypertension - too well controlled - decrease carvedilol to 1/2 tab twice daily. Monitor blood pressure and puse at home. The pt has been advised to call the office if there are any acute concerns about change in blood pressure readings at home. Zavsieczs-bysznhb-sft to #1-medications adjusted Chronic renal disease-fax labs to siding stapler-patient due for appt Headache-recent fall-CT head negative-adjusted medications today in the office- call if symptoms do not resolve or if any worse Increase LEVEMIR to 45 units in the morning and 75 units at HS Apidra is 30 units with each meal. Monitor you blood sugars as directed at home, record, and bring to the office at your next appointment, or as directed. Monitor your blood sugars at different times throughout the day-fasting, 30 minutes before a meal, 2 hours after a meal, or bedtime are good times to monitor your blood sugars. NYSTATIN swish and swallow four times daily x 10 days. . Diabetes Mellitus - Uncontrolled - per recent FSBS reports. I have recommended for the patient to have follow up labs prior to the next office visit. The patient has been instructed to continue with current medications as previously directed, continue with regular FSBS monitoring to assure continued control of diabetes. Pt to call for any acute concerns, complaints, or if the blood glucose readings are starting to become less controlled. I have recommended for the patient to follow more strictly to the diabetic diet as discussed in clinic to allow for greater blood glucose control. Hypertension - well controlled - continue with current medications, continue with no added salt diet. Pt has been encouraged to exercise daily. The pt has been advised to call the office if there are any acute concerns about change in blood pressure readings at home. Cough-RX for cough medication. Call for unresolved symptoms-patient to discussed with radiology oncologist tomorrow at [facility]-discussed natural and expected course of this diagnosis and to alert me if symptoms do not folow expected course, or if any worse. RX sent to patient's pharmacy-instructed to use 24 hours after symptoms completely resolve. Follow up in the office as directed . Mycoplasma pneumonia - pt has had persistent cough that has been worsening over the past few weeks without improvement despite a short course of antibiotics. I suspect he has mycoplasma pneumonia based on his symptomology. RX for clarithromycin has been sent electronically to the pharmacy. Cough - delsym is overthe counter and should be used at least three times a day. Pt has been instructed to use the symbicort twice a day and the albuterol four times a day. Hypertension - well controlled - continue with current medications, continue with no added salt diet. Pt has been encouraged to exercise daily. The pt has been advised to call the office if there are any acute concerns about change in blood pressure readings at home. DM - unsure of level of control. Will review labs when they are back and will then determine if the dose of medication needs increased. . HTN-elevated today but unable to increase medications due to orthostasis-continue same medications-monitor blood pressure and pulse at home and call with any concerns. Patient verbalized understanding of plan. End stage renal disease-on peritoneal dialysis Hypothyroidism - pt with chronic hypothyroidism, continue with current medication, will monitor pt to signs or symptoms of lack of adequate supplementation. Pt is to continue with current dose of medication unless directed otherwise. Check labs at regular intervals wither q 3 months or q 6 months based on previous levels of control. . Diabetes Mellitus - insulin dependent - pt is quite noncompliant with dietary recommendations. Pt has been advised to do the following medication changes: Increase the levemir to 30 units in the morning and 70 units at bedtime Increase the apidra to 25 units with meals....if the fingerstick blood sugars 2 hours after meals remains above 150, then increase the apidra to 30 units, do this x 3 days, if the blood glucose after meals continues to remain above 150, then inxrease to 35 units, and call in about two weeks to let us know what the results of thesugars are over the next few weeks. HTN - controlled - no change in medications today. Levemir 45 units in the morning and 75 units at bedtime. Apidra 35 units with each meal. . Thursh-resolved Xukdg-vhqcvzch-bgnbxtsg current treatment Diabetes Mellitus- I have recommended for the patient to have follow up labs prior to the next office visit. The patient has been instructed to continue with current medications as previously directed, continue with regular FSBS monitoring to assure continued control of diabetes. Pt to call for any acute concerns, complaints, or if the blood glucose readings are starting to become less controlled. I have recommended for the patient to follow more strictly to the diabetic diet as discussed in clinic to allow for greater blood glucose control. change protonix to 40mg every other day as needed for heartburn/reflux stop metoclopramide - if you notice that you have symptoms of not digesting food /regurgitation of food, or feeling full fast with inability to eat more than 1/ 4 of your meal, call the office. on the NEURONTIN (gabapentin) 100mg - decrease the dose to taking this medication just twice daily x 1 week, then decrease to one time a day x 1 week, then take this pill every other day x 4 doses then stop the medication. GFR - 20 CREATININE - 3.09 BUN - 49 drink more water . CHronic renal disease with worsening symptoms - I have recommended the following medication changes: change protonix to 40mg every other day as needed for heartburn/reflux stop metoclopramide - if you notice that you have symptoms of not digesting food /regurgitation of food, or feeling full fast with inability to eat more than 1/ 4 of your meal, call the office. on the NEURONTIN (gabapentin) 100mg - decrease the dose to taking this medication just twice daily x 1 week, then decrease to one time a day x 1 week, then take this pill every other day x 4 doses then stop the medication.
[2017-10-02 00:09] LABS: BAND NEUTROPHILS 9 %; BASOPHILS % (MANUAL) 0 %; EOSINOPHILS % (MANUAL) 0 %; LYMPHOCYTES % (MANUAL) 1 %; MONOCYTES % (MANUAL) 8 %; NEUTROPHILS % (MANUAL) 82 %; RBC MORPH NORMAL
[2017-10-02 00:14] LABS: ALANINE AMINOTRANSFERASE 15 U/L (0-55); ALBUMIN 4.1 GM/DL (3.2-4.5); ALKALINE PHOSPHATASE 68 U/L (40-136); BILIRUBIN,TOTAL 0.6 MG/DL (0.1-1.0); BUN/CREATININE RATIO 8; CALCIUM 9.8 MG/DL (8.5-10.1); CARBON DIOXIDE 26 MMOL/L (21-32); CHLORIDE 99 MMOL/L (98-107); CREATINE KINASE 42 U/L (30-200); CREATININE SERUM 4.83 MG/DL (0.60-1.30); GFR ESTIMATED 12; GLUCOSE 229 MG/DL (70-105); MAGNESIUM 1.7 MG/DL (1.8-2.4); SODIUM 138 MMOL/L (135-145); TOTAL PROTEIN 6.9 GM/DL (6.4-8.2)
[2017-10-02 00:22] LABS: CREATINE KINASE MB 2.2 NG/ML (<6.6)
[2017-10-02 00:39] LABS: PROTHROMBIN TIME PATIENT 13.4 SEC (12.2-14.7)
[2017-10-02] MEDS ORDERED: ACETAMINOPHEN 500 MG TAB (TYLENOL) PO ONE (00:45)
[2017-10-02] MEDS ORDERED: VANCOMYCIN INJECTION 1,000 MG in NS (IVPB) 250 ML IV ONE (00:45)
[2017-10-02] MEDS ORDERED: LABETALOL HCL 20 MG/4 ML VIAL IV ONE (00:45)
[2017-10-02] MEDS ORDERED: VANCOMYCIN 1000 MG/VIAL ONE (00:49)
[2017-10-02] MEDS ORDERED: NS (IVPB) 250 ML ONE (00:49)
[2017-10-02 01:17] LABS: BILIRUBIN,URINE NEGATIVE (NEGATIVE); CLARITY,URINE CLEAR; COLOR,URINE YELLOW; GLUCOSE, URINE (UA) 3+ (NEGATIVE); KETONES,URINE NEGATIVE (NEGATIVE); LEUKOCYTE ESTERASE ,URINE NEGATIVE (NEGATIVE); NITRITE,URINE NEGATIVE (NEGATIVE); PH,URINE 8 (5-9); PROTEIN,URINE 3+ (NEGATIVE); UROBILINOGEN,URINE NORMAL (NORMAL)
[2017-10-02 01:27] LABS: BACTERIA,URINE NEGATIVE /HPF; RBC,URINE 0-2 /HPF; WBC,URINE RARE /HPF
[2017-10-02 01:50] VITALS: BP 113/68
--- NOTE | 2017-10-02 03:06 | ED Syncope ---
General Chief Complaint: Trauma-Non Activation Stated Complaint: PASSED OUT @HOME Nursing Triage Note: BROUGHT IN BY WHEELCHAIR S/P FALL/SYNCOPAL EPISODE. PT FOUND LAYING ON GROUND APPROX. 2200 LAST KNOWN WELL TIME 1999. PT DENIES INJURY. CONFUSION TODAY PER FAMILY. Source of Information: Patient, Family Exam Limitations: Other (PT IS LIMITED HISTORIAN ABOUT EVENTS OF TODAY) History of Present Illness Date Seen by Provider: Oct 01, 2017 Time Seen by Provider: 23:04 Initial Comments PT ARRIVES VIA POV IN WHEELCHAIR PT HAD UNWITNESSED SYNCOPAL EPISODE PT STATES HE WAS WALKING OUT TO HIS VEHICLE, AND PASSED OUT IN THE DRIVEWAY-- LAST KNOWN WELL TIME WAS AROUND 2000 TONIGHT, WAS FOUND LAYING ON THE GROUND IN THE DRIVEWAY AROUND 2200 TONIGHT. FAMILY REPORTS THAT HE LAID OUT THERE FOR AT LEAST 2 HOURS--INCIDENT WAS NOT WITNESSED FAMILY REPORTS THAT PT IS CONFUSED TODAY. INITIALLY STATED HE WAS NOT INJURED, THEN FAMILY HAD TO REMIND HIM THAT HE HAS BEEN COMPLAINING OF ABRASION AND PAIN TO RIGHT ELBOW PT DOES NOT VOLUNTEER MUCH INFORMATION ABOUT EVENT OR HIS SYMPTOMS, BUT IS ABLE TO ANSWER QUESTIONS, BUT SOME NOT ACCURATELY ACCORDING TO FAMILY ADMITS TO HEADACHE ADMITS TO PAIN TO BACK OF HIS NECK "EARLIER TODAY" BUT DENIES PAIN IN HIS NECK NOW--HAS HISTORY OF CHRONIC NECK PAIN ADMITS TO BLURRY VISION, BUT HAS ONGOING PROBLEMS WITH VISION DENIES CHEST PAIN,, BUT STATES HIS HEART DID FEEL LIKE IT WAS SKIPPING/BEATING HARD SOMETIME EARLIER TODAY NO SHORTNESS OF BREATH--NO HISTORY OF RESPIRATORY PROBLEMS, BUT O2 SAT 87% ON ROOM AIR. DENIES DIZZINESS NO NAUSEA/VOMITING NO PARESTHESIAS OR MOTOR DEFICITS PT WITH GENERALIZED WEAKNESS PT ADMITS TO PRODUCTIVE COUGH WITH YELLOW SPUTUM-STATES IT STARTED TODAY C/O CHILLS AND HAS BEEN UNDER THE BLANKETS ALL DAY TODAY PT HAS ESRD AND IS ON DIALYSIS [id number]. AND HAD DIALYSIS TODAY FAMILY REPORT THAT PT WAS CONFUSED VERY EARLY THIS AM--GOT UP AT 0230 AND THOUGHT IT WAS TIME TO GO TO DIALYSIS, AND WAS GETTING READY TO GO THERE ( NORMALLY GOES TO DIALYSIS AT 0600, AND WAKES UP AROUND 0500 ) PT REPORTS THAT WHEN HE WAS FINISHING UP AT DIALYSIS, HE GOT LIGHTHEADED AND STAFF MADE HIM SIT DOWN, AND THEY PUT OXYGEN ON HIM AND THEN HE FELT BETTER, BUT DOES NOT KNOW WHAT HIS OXYGEN LEVEL WAS AT THAT TIME, OR WHAT HIS OTHER VITAL SIGNS WERE. PT IS DIABETIC. STATES THEY CHECKED HIS BLOOD GLUCOSE IN DIALYSIS, BUT HAS NOT CHECKED IT SINCE THEN PT DOES NOT RECALL WHEN HE LAST ATE--THINKS IT WAS THIS MORNING Location Injury Occurred: HOME PCP: DR. CALDERON KEG HEADER : DR. HOANG BUSINESS SERVICES REPRESENTATIVE : DR. Robertson" ONCOLOGIST: DR. DORANTES Allergies and Home Medications Allergies Coded Allergies: No Known Drug Allergies (Unverified , 01/03/14) Home Medications Acetaminophen/Diphenhydramine 1 Each Tablet, 1 TAB PO HS PRN for SLEEP, ( Reported) Albuterol 8.5 Gm Hfa.aer.ad, 2 PUFF IH Q4H PRN for SHORTNESS OF BREATH, ( Reported) Albuterol Sulfate 0.83 Mg/Ml Solution, 2.5 MG IH Q8H PRN for SHORTNESS OF BREATH, (Reported) Alprazolam 0.5 Mg Tablet, 0.5 MG PO TID PRN for ANXIETY, (Reported) Amlodipine Besylate 5 Mg Tablet, 5 MG PO DAILY, (Reported) Aspirin 81 Mg Tabec, 81 MG PO DAILY, (Reported) Calcium Acetate 667 Mg Capsule, 667 MG PO TID, (Reported) Carvedilol 6.25 Mg Tablet, 6.25 MG PO BID, (Reported) Colesevelam HCl 625 Mg Tablet, 1,875 MG PO BID, (Reported) TAKES 3 (625 MG) TABLETS Docusate Sodium 100 Mg Capsule, 100 MG PO DAILY PRN for CONSTIPATION, (Reported) Gabapentin 100 Mg Capsule, 100 MG PO TID, (Reported) Hydralazine HCl 25 Mg Tablet, 25 MG PO TID, (Reported) Insulin Detemir 100 Unit/1 Ml Insuln.pen, 15 UNITS SQ TID, (Reported) Insulin Lispro 100 Unit/1 Ml Cartridge, 15 UNITS SQ AC, (Reported) PATIENT USES ON SLIDING SCALE Isosorbide Mononitrate 30 Mg Tab.er.24h, 30 MG PO DAILY, (Reported) Levothyroxine Sodium 175 Mcg Tablet, 175 MCG PO BID, (Reported) [place] 3 Polyunsat Fatty Acids 1,000 Mg Cap, 3,000 MG PO BID, (Reported) TAKES 3 (1000 MG) CAPSULES Tiotropium [place] 1 Inh Aerp, 1 PUFF IH DAILY PRN for SHORTNESS OF BREATH, ( Reported) Patient Home Medication List Home Medication List Reviewed: Yes Constitutional: see HPI, chills, malaise, weakness EENTM: blurred vision Respiratory: see HPI, cough, phlegm; No short of breath Cardiovascular: No chest pain, No edema; palpitations, syncope Gastrointestinal: no symptoms reported; No abdominal pain, No nausea, No vomiting Genitourinary: see HPI Musculoskeletal: see HPI Skin: see HPI Psychiatric/Neurological: See HPI, Headache; Denies Numbness, Denies Paresthesia; Other (CONFUSION) Past [id number]-Mibtjd Hx Patient Social History Alcohol Use: Denies Use Recreational Drug Use: No Smoking Status: Never a Smoker 2nd Hand Smoke Exposure: No Recent Foreign Travel: No Contact w/Someone Who Travel: No Recent Infectious Disease Expo: No Recent Hopitalizations: No Immunizations Up To Date Tetanus Booster (TDap): Unknown PED Vaccines UTD: No Date of Pneumonia Vaccine: Nov 30, 2012 Date of Influenza Vaccine: Nov 20, 2016 Seasonal Allergies Seasonal Allergies: Yes Past Medical History Surgeries: Yes (BX OF LYMPH NODES AROUND THYROID; CARDIAC CATHS WTIH STENTS X 13 PLUS ANGIOPLASTIES; PORT LEFT CHEST; RIGHT CHEST CENTRAL LINE FOR DIALYSIS; ON PERITONEAL DIALYSIS IN PAST; BILATERAL CARPAL TUNNEL SURGERY) Cardiac, Coronary Stent, Orthopedic, Thyroidectomy Respiratory: Yes (PULMONARY EDEMA; HAS HAD PNEUMONIA A FEW TIMES) Pneumonia Cardiac: Yes (STENTS X 13; ANGIOPLASTIES; MULTIPLE CARIDAC CATHS, STRESS TESTS AND ECHOCARDIOGRAMS. GA X 2 ; HX OF SEVERE UNCONTROLLED HTN AT TIMES) Atrial Fibrillation, Coronary Artery Disease, Heart Attack, High Cholesterol, Hypertension, Syncope Neurological: Yes Neuropathy Reproductive Disorders: No Sexually Transmitted Disease: No HIV/AIDS: No Genitourinary: Yes Kidney Stones, Renal Failure Gastrointestinal: Yes Gastroesophageal Reflux Musculoskeletal: Yes (CHROINC NECK PAOIN ) Chronic Back Pain, Gout Endocrine: Yes (THYROID CANCER; LONGSTANDING UNCONTROLLED DIABETES WITH HISTORY OF FREQUENT GLUCOSE LEVELS IN 500'S -700'S) Diabetes, Insulin dep, Hypothyroidsim HEENT: No Glaucoma Hearing Impairment: Denies Cancer: Yes (STAGE 3 NON-HODGKIN'S LYMPHOMA AND THROID CANCER DX 04/2011--S/P CHEMO+RAD--LAST TX 12/2011) Lymphoma, Thyroid Did You Recieve Any Treatments: Yes What Type of Treatment Did You: Chemotherapy, Radiation Psychosocial: Yes Anxiety Integumentary: No Blood Disorders: No Adverse Reaction/Blood Tranf: No Family Medical History Cardiovascular disease 19 MOTHER G8 BROTHER (heart attack at 17 and is 72 years old now) FH: bladder cancer 19 FATHER FH: breast cancer 19 MOTHER Hypertension G8 SISTER Parkinson's disease G8 SISTER Heart Disease, Cancer, Hypertension Physical Exam Vital Signs Vital Signs - First Documented 10/01/17 23:10 Temp 98.1 Pulse 89 Resp 18 B/P (MAP) 203/98 (133) Pulse Ox 98 O2 Delivery Nasal Cannula O2 Flow Rate 2.00 Capillary Refill : Less Than 3 Seconds Height, Weight, BMI Height: 5'10.00" Weight: 174lbs. 9.0oz. 79.153207pt; 26.54 BMI Method:Stated General Appearance: No Apparent Distress, WD/WN, Other (MILDLY LETHARGIC) HEENT: PERRL/EOMI Neck: Normal Inspection Cardiovascular: Regular Rate, Rhythm, No Edema, No JVD, No Murmur, Normal Peripheral Pulses Respiratory: No Accessory Muscle Use, No Respiratory Distress, Rales (IN BASES- -RIGHT > LEFT), Rhonci (MILD IN BASES --RIGHT > LEFT); No Wheezing; Other (PORT LEGT CHEST; RIGHT CENTRAL LINE FOR DIALYSIS) Gastrointestinal: Normal Bowel Sounds, No Organomegaly, No Pulsatile Mass, Non Tender, Soft Extremities: Normal Capillary Refill, No Calf Tenderness, No Pedal Edema, Other (TENDERNESS AROUND RIGHT ELBOW WITH VERY MINOR ABRASION TO AREA. NO BLEEDING. DISTAL MOTOR/SENSORY/VASCULAR INTACT) Neurologic/Psychiatric: Alert, Oriented x3 (BUT POOR MEMORY AND CONFUSION ABOUT EVENTS OF TODAY), No Motor/Sensory Deficits (HX OF NEUROPATHY), Normal Mood/Affect, cylinder checker II-XII Norm as Tested Cranial Nerves: Normal Hearing, Normal Speech, PERRL Motor/Sensory: No Motor Deficit, No Sensory Deficit, No Pronator Drift Skin: Normal Color, Warm/Dry Focused Exam Lactate Level 10/02/17 00:30: Lactic Acid Level 2.36*H Lactic Acid Level Laboratory Tests Test 10/02/17 00:30 Lactic Acid Level 2.36 MMOL/L (0.50-2.00) *H Progress/Results/Core Measures Results/Orders Lab Results Laboratory Tests Test 10/01/17 23:17 10/01/17 23:40 10/02/17 00:20 10/02/17 00:30 Range/Units Glucometer 200 H 70-110 MG/DL White Blood Count 15.9 H 4.3-11.0 10^3/uL Red Blood Count 3.76 L 4.35-5.85 10^6/uL Hemoglobin 12.8 L 13.3-17.7 G/DL Hematocrit 37 L 40-54 % Mean Corpuscular Volume 98 80-99 FL Mean Corpuscular Hemoglobin 34 25-34 PG Mean Corpuscular Hemoglobin Concent 35 32-36 G/DL Red Cell Distribution Width 12.2 10.0-14.5 % Platelet Count 147 130-400 10^3/uL Mean Platelet Volume 8.9 7.4-10.4 FL Neutrophils (%) (Auto) 92 H 42-75 % Lymphocytes (%) (Auto) 2 L 12-44 % Monocytes (%) (Auto) 5 0-12 % Eosinophils (%) (Auto) 0 0-10 % Basophils (%) (Auto) 0 0-10 % Neutrophils # (Auto) 14.7 H 1.8-7.8 X 10^3 Lymphocytes # (Auto) 0.4 L 1.0-4.0 X 10^3 Monocytes # (Auto) 0.8 0.0-1.0 X 10^3 Eosinophils # (Auto) 0.0 0.0-0.3 10^3/uL Basophils # (Auto) 0.0 0.0-0.1 10^3/uL Neutrophils % (Manual) 82 % Lymphocytes % (Manual) 1 % Monocytes % (Manual) 8 % Eosinophils % (Manual) 0 % Basophils % (Manual) 0 % Band Neutrophils 9 % Blood Morphology Comment NORMAL Sodium Level 138 135-145 MMOL/L Potassium Level 5.0 3.6-5.0 MMOL/L Chloride Level 99 98-107 MMOL/L Carbon Dioxide Level 26 21-32 MMOL/L Anion Gap 13 5-14 MMOL/L Blood Urea Nitrogen 40 H 7-18 MG/DL Creatinine 4.83 H 0.60-1.30 MG/DL Estimat Glomerular Filtration Rate 12 BUN/Creatinine Ratio 8 Glucose Level 229 H 70-105 MG/DL Calcium Level 9.8 8.5-10.1 MG/DL Corrected Calcium 9.7 8.5-10.1 MG/DL Magnesium Level 1.7 L 1.8-2.4 MG/DL Total Bilirubin 0.6 0.1-1.0 MG/DL Aspartate Amino Transf (AST/SGOT) 11 5-34 U/L Alanine Aminotransferase (ALT/SGPT) 15 0-55 U/L Alkaline Phosphatase 68 40-136 U/L Total Creatine Kinase 42 30-200 U/L Creatine Kinase MB 2.2 <6.6 NG/ML Troponin I < 0.30 <0.30 NG/ML B-Type Natriuretic Peptide 763.1 H <100.0 PG/ML Total Protein 6.9 6.4-8.2 GM/DL Albumin 4.1 3.2-4.5 GM/DL Prothrombin Time 13.4 12.2-14.7 SEC INR Comment 1.0 0.8-1.4 Activated Partial Thromboplast Time 32 24-35 SEC Lactic Acid Level 2.36 *H 0.50-2.00 MMOL/L Test 10/02/17 01:10 Range/Units Urine Color YELLOW Urine Clarity CLEAR Urine pH 8 5-9 Urine Specific [place] 1.010 L 1.016-1.022 Urine Protein 3+ H NEGATIVE Urine Glucose (UA) 3+ H NEGATIVE Urine Ketones NEGATIVE NEGATIVE Urine Nitrite NEGATIVE NEGATIVE Urine Bilirubin NEGATIVE NEGATIVE Urine Urobilinogen NORMAL NORMAL MG/DL Urine Leukocyte Esterase NEGATIVE NEGATIVE Urine RBC (Auto) 2+ H NEGATIVE Urine RBC 0-2 /HPF Urine WBC RARE /HPF Urine Squamous Epithelial Cells NONE /HPF Urine Crystals NONE /LPF Urine Bacteria NEGATIVE /HPF Urine Casts NONE /LPF Urine Mucus NEGATIVE /LPF Urine Culture Indicated NO My Orders Orders - ABBIE BRENNER DO Accucheck Stat ONCE (10/01/17 23:04) Saline Lock/Iv-Start (10/01/17 23:04) Ekg Tracing (10/01/17 23:04) Monitor-Rhythm Ecg Trace Only (10/01/17 23:04) Orthostatic Vital Signs (Adult (10/01/17 23:04) Ct Head Wo-R/O Stroke (10/01/17 23:04) BNP (10/01/17 23:04) Cbc With Automated Diff (10/01/17 23:04) Comprehensive Metabolic Panel (10/01/17 23:04) Creatine Kinase (10/01/17 23:04) Creatine Kinase Mb (10/01/17 23:04) Magnesium (10/01/17 23:04) Protime With Inr (10/01/17 23:04) Partial Thromboplastin Time (10/01/17 23:04) Troponin I (10/01/17 23:04) Ua Culture If Indicated (10/01/17 23:04) Chest 1 View, Ap/Pa Only (10/01/17 23:04) O2 (10/01/17 23:13) Forearm, Right, 2 Views (10/01/17 23:13) Humerus, Right, 2 Views (10/01/17 23:13) Pelvis (10/01/17 23:13) Dipht,Pertuss(Acell),Tet Adult (Boostrix (10/01/17 23:13) Manual Differential (10/01/17 23:40) Lactic Acid Analyzer (10/02/17 00:23) Blood Culture (10/02/17 00:23) Wound Dressing-Ed (10/02/17 00:33) Acetaminophen Tablet (Tylenol Tablet) (10/02/17 00:45) Labetalol Injection (Normodyne Injection (10/02/17 00:45) Vancomycin Injection (Vancomycin Injecti (10/02/17 00:45) Vancomycin Injection (Vancomycin Injecti (10/02/17 00:49) Ns (Ivpb) (Sodium Chloride 0.9%) (10/02/17 00:49) Medications Given in ED Current Medications Medications Dose Ordered Sig/Dee Route Start Time Stop Time Status Last Admin Dose Admin Acetaminophen 1,000 mg ONCE ONCE PO 10/02/17 00:45 10/02/17 00:46 DC 10/02/17 00:55 1,000 MG Labetalol HCl 20 mg ONCE ONCE IV 10/02/17 00:45 10/02/17 01:13 DC 10/02/17 00:54 20 MG Vancomycin HCl 1000 mg/Sodium Chloride 250 ml @ 250 mls/hr ONCE ONCE IV 10/02/17 00:45 10/02/17 01:44 DC 10/02/17 00:55 250 MLS/HR Vital Signs/I&O 10/01/17 10/01/17 10/02/17 10/02/17 23:10 23:10 00:55 01:50 Temp 98.1 101.2 99.7 Pulse 89 77 Resp 18 16 B/P (MAP) 203/98 (133) 113/68 (133) Pulse Ox 98 98 96 O2 Delivery Nasal Cannula Room Air Nasal Cannula O2 Flow Rate 2.00 2.00 Blood Pressure Mean: 133 FSBG Bedside Testing Finger Stick Blood Glucose: 200 Blood Glucose Action Taken: DR AND RN NOTIFIED Progress Progress Note : Progress Note UNEVENTFUL ER STAY PT PLACED ON O2 AT 2L/NC ON ARRIVAL AND O2 SATS REMAINED IN UPPER 90'S FOR ENTIRE ER STAY BP DOWN AT TIME OF TRANSFER AFTER LABETALOL GIVEN FOR SEVERE HTN. NO COUGH NOTED DURING ER STAY NO DYSPNEA OR CHEST PAIN TEMP SPIKED TO 101.9--GIVEN TYLENOL. TEMP DOWN TO 99.7 AT TIME OF TRANSFER. Initial ECG Impression Date: Oct 02, 2017 Initial ECG Impression Time: 00:18 Initial ECG Rate: 89 Initial ECG Rhythm: Normal Sinus Initial ECG Impression: Nonspecific Changes Initial ECG Comparisson: Unchanged Diagnostic Imaging Comments CXR--CARDIOMEGALY WITH MILD CHF, ALSO BIBASILAR INFILTRATES/ATELECTASIS PELVIS XRAYS--NO ACUTE PROCESS XRAYS RIGHT HUMERUS--NO ACUTE PROCESS XRAYS RIGHT FOREARM--NO ACUTE PROCESS ALL PENDING RADIOLOGIST REVIEW CT HEAD--NO ACUTE PROCESS, CHRONIC MICROVASCULAR CHANGES--PER [facility] RADIOLOGIST VIA PHONE AT 2299 AND VIA FAX @ 1732 Reviewed: Reviewed by [place] Departure Communication (Admissions) 0032--CALLED [facility] DIRECT CALL. PAGING HOSPITALIST 0040--SPOKE WITH DR. GODOY, ACCEPTS PT FOR ADMIT. ADVISES VANCOMYCIN/ MEROPENEM. VANCOMYCIN STARTED IN ER. Impression Primary Impression: Sepsis Additional Impressions: PNEUMONIA WITH HYPOXIA Altered mental status Episode of syncope Severe uncontrolled hypertension ESRD (end stage renal disease) on dialysis IDDM (insulin dependent diabetes mellitus) RIGHT ELBOW CONTUSION AND ABRASION Disposition: 02 XFER SHT-TRM HOSP Condition: Improved Departure-Patient Inst. Referrals: SEBASTIAN CALDERON MD (PCP) Primary Care Physician ABBIE BRENNER DO Oct 02, 2017 03:06
--- NOTE | 2017-10-02 06:56 | Diagnostic Imaging Report ---
INDICATION: Forearm pain post fall TECHNIQUE: 2 views of the right forearm. CORRELATION STUDY: None FINDINGS: The radius and ulna have an unremarkable appearance. The visualized portions of the elbow and wrist are unremarkable. Prominent vascular calcification. IMPRESSION: 1. Negative for acute bony abnormality of the forearm. Dictated by: Dictated on workstation # [id number]
--- NOTE | 2017-10-02 06:57 | Diagnostic Imaging Report ---
INDICATION: Pain post fall TECHNIQUE: 2 views of the right humerus CORRELATION STUDY: None FINDINGS: The humerus has an unremarkable appearance. The visualized portions of the shoulder and elbow are unremarkable. Vascular calcification present. Right IJ dialysis catheter partially visualized. IMPRESSION: 1. Negative for acute bony abnormality of the humerus. Dictated by: Dictated on workstation # [id number]
--- NOTE | 2017-10-02 06:58 | Diagnostic Imaging Report ---
INDICATION: Pain post fall. TECHNIQUE: AP pelvis 11:49 PM CORRELATION STUDY: None FINDINGS: The pelvis demonstrates no evidence for acute fracture. The pectineal lines and obturator rings are maintained. Pubic symphysis and SI joints are unremarkable. Mild joint space narrowing of the hips. Vascular calcification present. Overlying monitor leads obscure detail. IMPRESSION: Negative examination of the pelvis. Dictated by: Dictated on workstation # [id number]
--- NOTE | 2017-10-02 07:05 | Diagnostic Imaging Report ---
Indication: Fall, passed out. TECHNIQUE: Multiple noncontrast CT axial images were obtained from the base of the skull through the vertex. COMPARISON: 10/20/2015 FINDINGS: There are diffuse atrophic changes with prominence of the ventricles and sulci. There are scattered areas of decreased attenuation, nonspecific but likely changes of chronic small vessel ischemic disease. There is otherwise normal montoya-white differentiation. No abnormal areas of attenuation to suggest edema from ischemia. There is no midline shift or mass effect. No evidence for acute intracranial hemorrhage or abnormal extra-axial fluid collection. Bony calvarium is intact. Paranasal sinuses are clear. Mastoid air cells are partially opacified on the right. IMPRESSION: 1. No CT evidence for acute intracranial abnormality. 2. Age-related atrophic changes with changes of small vessel ischemic disease. A preliminary report was provided by [employer]. Dictated by: Dictated on workstation # [id number]
--- NOTE | 2017-10-02 07:06 | Diagnostic Imaging Report ---
INDICATION: Congestive heart failure, fall, passed out.. TECHNIQUE: Single view chest 11:15 PM. CORRELATION STUDY: 02/05/2017 FINDINGS: Partial visualization of a right IJ dialysis catheter tip at the high right atrium. Heart size enlarged and is present with pulmonary vascular congestion appearing changed from prior study. Lung amanda with minimal increased density lung bases could reflect atelectasis, infiltrate and/or edema. IMPRESSION: 1. Findings of congestive heart failure. 2. Atelectasis, infiltrate or edema suggested about the left lung base. Dictated by: Dictated on workstation # [id number]
== END 2017-10-02 02:10 | disposition short-term general hospital (02) ==
LOC: EDUNIT# 22:49 → ER 22:51
DX: S50.01XA Contusion of right elbow, initial encounter (principal); A41.9 Sepsis, unspecified organism; J18.9 Pneumonia, unspecified organism; R41.82 Altered mental status, unspecified; R55 Syncope and collapse; E11.22 Type 2 diabetes mellitus with diabetic chronic kidney disease; I12.0 Hypertensive chronic kidney disease with stage 5 chronic kidney disease or end stage renal disease; N18.6 End stage renal disease; I48.91 Unspecified atrial fibrillation; I25.10 Atherosclerotic heart disease of native coronary artery without angina pectoris; I25.2 Old myocardial infarction; I10 Essential (primary) hypertension; E78.00 Pure hypercholesterolemia, unspecified; K21.9 Gastro-esophageal reflux disease without esophagitis; E11.42 Type 2 diabetes mellitus with diabetic polyneuropathy; F41.9 Anxiety disorder, unspecified; E03.9 Hypothyroidism, unspecified; Z85.72 Personal history of non-Hodgkin lymphomas; Z23 Encounter for immunization; Z87.442 Personal history of urinary calculi; Z92.21 Personal history of antineoplastic chemotherapy; Z82.49 Family history of ischemic heart disease and other diseases of the circulatory system; Z80.3 Family history of malignant neoplasm of breast; Z85.51 Personal history of malignant neoplasm of bladder; Z79.51 Long term (current) use of inhaled steroids; Z79.82 Long term (current) use of aspirin; Z79.4 Long term (current) use of insulin; Z95.1 Presence of aortocoronary bypass graft; Z95.5 Presence of coronary angioplasty implant and graft; W18.39XA Other fall on same level, initial encounter
CPT/HCPCS: 36415; 70450; 71045; 72170; 73060; 73090; 80053; 81000; 82550; 82553; 82962; 83605; 83735; 83880; 84484; 85007; 85027; 85610; 85730; 87040; 90715; 93041

== ENCOUNTER 2017-10-17 12:54 | Emergency (ER) | payer MEDICARE ==
[~2017-10-17] VITALS: Ht 177.8 cm; Wt 80.5 kg
[~2017-10-17 12:54] MED LIST changes: +AMLO10TA6 PO; +AMLO5TAB7 PO; +HYDR-3820; +LOSA100T8 PO; +LOSA25TA6
--- OUTSIDE RECORDS SUMMARY | 2017-10-17 13:00 | XMS REPORT | Clinical Summary ---
Author Author [facility] Organization [facility] Address Unknown Phone Unavailable Care Team Providers Care Leather Sorter Name Role Phone Eryn Jewell RN Unavailable Unavailable Catherine Zelaya MD PCP Carlos Colvin MD Unavailable Unavailable Source Comments Some departments are not documenting in the electronic medical record. If you do not see the information that you expected, contact Release of Information in the Health Information Management department at [phone] for further assistance in locating additional records.[facility] Allergies Active Allergy Reactions Severity Noted [...] Taken Blood Pressure 161/94 04/22/2013 8:35 AM FINANCIAL ASSISTANCE SPECIALIST Pulse 95 04/22/2013 8:35 AM FINANCIAL ASSISTANCE SPECIALIST Temperature 36.9 C (98.4 F) 04/22/2013 8:35 AM FINANCIAL ASSISTANCE SPECIALIST Respiratory Rate - - Oxygen Saturation 93% 04/22/2013 8:35 AM FINANCIAL ASSISTANCE SPECIALIST Inhaled Oxygen - - Concentration Weight 83.3 kg (183 lb 9.6 oz) 04/22/2013 8:35 AM FINANCIAL ASSISTANCE SPECIALIST Height 172.1 cm (5' 7.75") 04/22/2013 8:35 AM FINANCIAL ASSISTANCE SPECIALIST Body Mass Index 28.12 04/22/2013 8:35 AM FINANCIAL ASSISTANCE SPECIALIST Plan of Treatment Health Maintenance Due Date Last Done Comments HEPATITIS C SCREENING 1950 PHYSICAL (COMPREHENSIVE) 01/06/1956 EXAM PERTUSSIS VACCINE 01/06/1960 TETANUS VACCINE 1966 COLORECTAL CANCER 1999 SCREENING SHINGLES RECOMBINANT 1999 VACCINE (1 of 2) PNEUMONIA (PCV13/PPSV23) 2014 VACCINES (1 of 2 - PCV13) INFLUENZA VACCINE 11/17/2017 Results Not on filefrom Last 3 Months
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
[2017-10-17 13:18] LABS: BASOPHILS % (AUTO) 0 % (0-10); EOSINOPHILS # (AUTO) 0.4 10^3/uL (0.0-0.3); EOSINOPHILS % (AUTO) 6 % (0-10); HEMATOCRIT 28 % (40-54); HEMOGLOBIN 9.4 G/DL (13.3-17.7); LYMPHOCYTES # (AUTO) 0.8 X 10^3 (1.0-4.0); LYMPHOCYTES % (AUTO) 14 % (12-44); MEAN CORPUSCULAR HEMOGLOBIN 34 PG (25-34); MEAN CORPUSCULAR HGB CONC 34 G/DL (32-36); MEAN CORPUSCULAR VOLUME 99 FL (80-99); MEAN PLATELET VOLUME 8.8 FL (7.4-10.4); MONOCYTES # (AUTO) 0.5 X 10^3 (0.0-1.0); MONOCYTES % (AUTO) 9 % (0-12); NEUTROPHILS # (AUTO) 4.2 X 10^3 (1.8-7.8); NEUTROPHILS % (AUTO) 71 % (42-75); PLATELET COUNT 169 10^3/uL (130-400); RED BLOOD COUNT 2.78 10^6/uL (4.35-5.85); WHITE BLOOD COUNT 5.9 10^3/uL (4.3-11.0)
[2017-10-17 13:36] LABS: ALBUMIN 3.4 GM/DL (3.2-4.5); BILIRUBIN,TOTAL 0.4 MG/DL (0.1-1.0); CREATININE SERUM 2.18 MG/DL (0.60-1.30); POTASSIUM 3.9 MMOL/L (3.6-5.0); TOTAL PROTEIN 5.9 GM/DL (6.4-8.2)
--- NOTE | 2017-10-17 14:33 | Diagnostic Imaging Report ---
INDICATION: Weakness, hypotension.. TECHNIQUE: Single view chest 1:40 PM. CORRELATION STUDY: 10/15/2017, 10/01/2017 FINDINGS: Right IJ dialysis catheter and left-sided central line remain in place. Heart size remains enlarged with coronary artery stent over the left heart border. The vasculature overall is improved from prior imaging, particularly the study of 10/01. Lung parenchyma demonstrates no definitive consolidating infiltrate. There is vague density over the lateral left lung apex not definitively suggesting on prior imaging. Minimal atelectasis about the left lung base. Loop recorder is present over the lower heart. Surgiclips and soft tissue neck on the right. IMPRESSION: 1. Cardiac enlargement with vasculature near normal on followup. 2. Vague density of the left lung apex. This may very well reflect overlapping summation shadows. A pleural-based density however is not excluded. Short-term followup two-view chest imaging in 1 to 2 months recommended for reassessment. Dictated by: Dictated on workstation # [id number]
[2017-10-17 14:45] VITALS: BP 116/64
== END 2017-10-17 14:45 | disposition home or self-care (01) ==
LOC: EDUNIT# 12:54 → ER 12:55
DX: I95.9 Hypotension, unspecified (principal); E11.22 Type 2 diabetes mellitus with diabetic chronic kidney disease; I12.0 Hypertensive chronic kidney disease with stage 5 chronic kidney disease or end stage renal disease; N18.6 End stage renal disease; R55 Syncope and collapse; I48.91 Unspecified atrial fibrillation; I25.10 Atherosclerotic heart disease of native coronary artery without angina pectoris; I25.2 Old myocardial infarction; E78.00 Pure hypercholesterolemia, unspecified; K21.9 Gastro-esophageal reflux disease without esophagitis; E03.9 Hypothyroidism, unspecified; F41.9 Anxiety disorder, unspecified; Z99.2 Dependence on renal dialysis; Z87.442 Personal history of urinary calculi; Z80.52 Family history of malignant neoplasm of bladder; Z82.49 Family history of ischemic heart disease and other diseases of the circulatory system; Z80.3 Family history of malignant neoplasm of breast; Z85.850 Personal history of malignant neoplasm of thyroid; Z92.21 Personal history of antineoplastic chemotherapy; Z90.89 Acquired absence of other organs; Z87.01 Personal history of pneumonia (recurrent); Z79.51 Long term (current) use of inhaled steroids; Z95.5 Presence of coronary angioplasty implant and graft; Z79.82 Long term (current) use of aspirin; Z79.4 Long term (current) use of insulin; V49.40XA Driver injured in collision with unspecified motor vehicles in traffic accident, initial encounter
CPT/HCPCS: 36415; 71045; 80053; 85025; 93005

== ENCOUNTER → 2017-10-21 | Outpatient (CLI) | payer MEDICARE ==
[~2017-10-21] MED LIST changes: +LEVO300T5; +LEVO50TA6
--- NOTE | 2017-10-21 19:08 | Diagnostic Imaging Report ---
INDICATION: Persistent cough x1 week. PA and lateral chest obtained at 3:45 p.m. and is compared to 10/17/2017. FINDINGS: Heart is normal in size. Mediastinal silhouette is unremarkable. Port-A-Cath over left chest is noted with tip overlying the SVC. Dual-lumen central catheter from the right side is also unchanged. There is no pneumothorax or pleural fluid or focal infiltrate. Coronary stents are visualized. IMPRESSION: No acute process in the chest and no change compared to the previous study. Dictated by: Dictated on workstation # [id number]
== END ==
LOC: RAD 15:13
PROVIDERS: ATTEND Nurse Practitioner Family
DX: R05 Cough (principal)
CPT/HCPCS: 71046

== ENCOUNTER 2017-11-04 20:06 | Emergency (ER) | payer MEDICARE ==
[~2017-11-04] VITALS: Ht 177.8 cm; Wt 80.5 kg
[~2017-11-04 20:06] MED LIST changes: -LEVO300T5; -LEVO50TA6
[2017-11-04] MEDS ORDERED: ONDANSETRON 4 MG/2 ML (SDV) Z0FRAN ONE (20:07)
[2017-11-04] MEDS ORDERED: RT-ALBUTEROL/IPRATROPIUM 3 ML (DUONEB) VIAL ONE (20:08)
--- OUTSIDE RECORDS SUMMARY | 2017-11-04 20:14 | XMS REPORT | Clinical Summary ---
Author Author [facility] Address Unknown Phone Unavailable Care Team Providers Care Mortar Worker Name Role Phone Eryn Jewell RN Unavailable Unavailable Catherine Zelaya MD PCP Carlos Colvin MD Unavailable Unavailable Source Comments Some departments are not documenting in the electronic medical record. If you do not see the information that you expected, contact Release of Information in the Health Information Management department at [phone] for further assistance in locating additional records.[facility] Allergies Active Allergy Reactions Severity Noted [...] Taken Blood Pressure 161/94 04/22/2013 8:35 AM STABLE HELPER Pulse 95 04/22/2013 8:35 AM STABLE HELPER Temperature 36.9 C (98.4 F) 04/22/2013 8:35 AM STABLE HELPER Respiratory Rate - - Oxygen Saturation 93% 04/22/2013 8:35 AM STABLE HELPER Inhaled Oxygen - - Concentration Weight 83.3 kg (183 lb 9.6 oz) 04/22/2013 8:35 AM STABLE HELPER Height 172.1 cm (5' 7.75") 04/22/2013 8:35 AM STABLE HELPER Body Mass Index 28.12 04/22/2013 8:35 AM STABLE HELPER Plan of Treatment Health Maintenance Due Date Last Done Comments HEPATITIS C SCREENING 1950 PHYSICAL (COMPREHENSIVE) 01/06/1956 EXAM PERTUSSIS VACCINE 01/06/1960 TETANUS VACCINE 1966 COLORECTAL CANCER 1999 SCREENING SHINGLES RECOMBINANT 1999 VACCINE (1 of 2) PNEUMONIA (PCV13/PPSV23) 2014 VACCINES (1 of 2 - PCV13) INFLUENZA VACCINE 11/17/2017 Results Not on filefrom Last 3 Months
[2017-11-04] MEDS ORDERED: RT-ALBUTEROL/IPRATROPIUM 3 ML (DUONEB) VIAL INH ONE (20:15)
[2017-11-04] MEDS ORDERED: ONDANSETRON 4 MG/2 ML (SDV) Z0FRAN IVP ONE (20:15)
[2017-11-04 20:26] LABS: BASOPHILS % (AUTO) 0 % (0-10); EOSINOPHILS # (AUTO) 0.2 10^3/uL (0.0-0.3); EOSINOPHILS % (AUTO) 1 % (0-10); HEMATOCRIT 32 % (40-54); HEMOGLOBIN 11.3 G/DL (13.3-17.7); LYMPHOCYTES # (AUTO) 0.7 X 10^3 (1.0-4.0); LYMPHOCYTES % (AUTO) 5 % (12-44); MEAN CORPUSCULAR HEMOGLOBIN 34 PG (25-34); MEAN CORPUSCULAR HGB CONC 35 G/DL (32-36); MEAN CORPUSCULAR VOLUME 98 FL (80-99); MONOCYTES # (AUTO) 0.9 X 10^3 (0.0-1.0); MONOCYTES % (AUTO) 6 % (0-12); NEUTROPHILS # (AUTO) 13.8 X 10^3 (1.8-7.8); NEUTROPHILS % (AUTO) 89 % (42-75); PLATELET COUNT 171 10^3/uL (130-400); RED BLOOD COUNT 3.31 10^6/uL (4.35-5.85); RED CELL DISTRIBUTION WIDTH 13.3 % (10.0-14.5); WHITE BLOOD COUNT 15.6 10^3/uL (4.3-11.0)
[2017-11-04] MEDS ORDERED: LEVO300T5 (20:26)
[2017-11-04] MEDS ORDERED: LEVO50TA6 (20:26)
[2017-11-04] MEDS ORDERED: LIDOCAINE 1% INJ 20 ML 20 ML VIAL ONE (20:36)
[2017-11-04 20:37] LABS: PROTHROMBIN TIME PATIENT 13.1 SEC (12.2-14.7)
--- NOTE | 2017-11-04 20:40 | Diagnostic Imaging Report ---
INDICATION: Shortest of air. COMPARISON with exam of 10/21/2017 FINDINGS: A right IJ at the SVC. Loop recorder overlies the left chest. Heart size within normal limits. Questionable perihilar interstitial infiltrates having developed. The lung periphery clear. IMPRESSION: Vague increased perihilar interstitial opacities. No other infiltrate. No failure pattern. No pleural fluid. No pneumothorax. Dictated by: Dictated on workstation # [id number]
[2017-11-04 20:44] LABS: BILIRUBIN,TOTAL 0.7 MG/DL (0.1-1.0); CALCIUM 9.1 MG/DL (8.5-10.1); CREATININE SERUM 5.42 MG/DL (0.60-1.30); POTASSIUM 4.9 MMOL/L (3.6-5.0); TOTAL PROTEIN 7.1 GM/DL (6.4-8.2)
[2017-11-04 20:51] VITALS: BP 195/97
[2017-11-04 20:57] LABS: BAND NEUTROPHILS 7 %; BASOPHILS % (MANUAL) 0 %; EOSINOPHILS % (MANUAL) 1 %; LYMPHOCYTES % (MANUAL) 4 %; MONOCYTES % (MANUAL) 6 %; NEUTROPHILS % (MANUAL) 82 %; RBC MORPH NORMAL
--- NOTE | 2017-11-04 21:08 | ED Respiratory ---
General Chief Complaint: Respiratory Problems Stated Complaint: SOB/VOMITING Nursing Triage Note: soa, n/v History of Present Illness Date Seen by Provider: Nov 04, 2017 Time Seen by Provider: 20:10 Initial Comments Here by EMS with acute shortness of air and cough associated with nausea and vomiting. Apparently he has had some coughing going on recently and was started on a new medicine to help with the cough. He then had vomiting and there was concerns about aspiration. EMS was summoned and his initial O2 sat was in the 60s. He was placed on CPAP by EMS and O2 saturations increased to the mid upper 70s. Does have fever. Is on dialysis and last dialysis was yesterday. He has not missed any of that. Reports significant nausea and several episodes of vomiting. Timing/Duration: this morning, getting worse Severity: severe Prior Episodes/Possible Cause: occasional episodes Modifying Factors: Worse With Coughing; Improves With Oxygen, Improves With Rest Associated Symptoms: No chest pain/soreness; cough, fever/chills, shortness of breath, wheezing Allergies and Home Medications Allergies Coded Allergies: No Known Drug Allergies (Unverified , 01/03/14) Home Medications Acetaminophen/Diphenhydramine 1 Each Tablet, 1 TAB PO HS PRN for SLEEP, ( Reported) Albuterol 8.5 Gm Hfa.aer.ad, 2 PUFF IH Q4H PRN for SHORTNESS OF BREATH, ( Reported) Albuterol Sulfate 0.83 Mg/Ml Solution, 2.5 MG IH Q8H PRN for SHORTNESS OF BREATH, (Reported) Alprazolam 0.5 Mg Tablet, 0.5 MG PO TID PRN for ANXIETY, (Reported) Amlodipine Besylate 5 Mg Tablet, 5 MG PO DAILY, (Reported) Amlodipine Besylate 10 Mg Tablet, 10 MG PO DAILY Prescribed by: ISSAC GRAHAM on 10/15/17 1648 Aspirin 81 Mg Tabec, 81 MG PO DAILY, (Reported) Calcium Acetate 667 Mg Capsule, 667 MG PO TID, (Reported) Carvedilol 6.25 Mg Tablet, 6.25 MG PO BID, (Reported) Colesevelam HCl 625 Mg Tablet, 1,875 MG PO BID, (Reported) TAKES 3 (625 MG) TABLETS Docusate Sodium 100 Mg Capsule, 100 MG PO DAILY PRN for CONSTIPATION, (Reported) Gabapentin 100 Mg Capsule, 100 MG PO TID, (Reported) Hydralazine HCl 25 Mg Tablet, 25 MG PO TID, (Reported) Insulin Detemir 100 Unit/1 Ml Insuln.pen, 15 UNITS SQ TID, (Reported) Insulin Lispro 100 Unit/1 Ml Cartridge, 15 UNITS SQ AC, (Reported) PATIENT USES ON SLIDING SCALE Isosorbide Mononitrate 30 Mg Tab.er.24h, 30 MG PO DAILY, (Reported) Levothyroxine Sodium 175 Mcg Tablet, 175 MCG PO BID, (Reported) Losartan Potassium 100 Mg Tablet, 100 MG PO DAILY Prescribed by: ISSAC GRAHAM on 10/15/17 1648 [place] 3 Polyunsat Fatty Acids 1,000 Mg Cap, 3,000 MG PO BID, (Reported) TAKES 3 (1000 MG) CAPSULES Tiotropium [place] 1 Inh Aerp, 1 PUFF IH DAILY PRN for SHORTNESS OF BREATH, ( Reported) Patient Home Medication List Home Medication List Reviewed: Yes Review of Systems Review of Systems Constitutional: see HPI, chills, fever EENTM: nose congestion, throat pain Respiratory: see HPI, cough, short of breath, wheezing Cardiovascular: No edema; Hx of Intervention Gastrointestinal: No abdominal pain; nausea, vomiting Genitourinary: no symptoms reported Musculoskeletal: no symptoms reported Skin: no symptoms reported Psychiatric/Neurological: Anxiety Unable to complete review of systems due to respiratory distress Past Yvqlhxr-Mshtuf-Lyupgl Hx Past Med/Social Hx: Reviewed Nursing Past Med/Soc Hx Patient Social History Alcohol Use: Denies Use Recreational Drug Use: No Smoking Status: Never a Smoker 2nd Hand Smoke Exposure: No Recent Foreign Travel: No Contact w/Someone Who Travel: No Recent Infectious Disease Expo: No Recent Hopitalizations: Yes Immunizations Up To Date Tetanus Booster (TDap): Unknown PED Vaccines UTD: No Date of Pneumonia Vaccine: Nov 30, 2012 Date of Influenza Vaccine: Nov 20, 2016 Seasonal Allergies Seasonal Allergies: Yes Past Medical History Surgeries: Yes (I-LINQ DEVICE) Cardiac, Coronary Stent, Orthopedic, Thyroidectomy Respiratory: Yes (PULMONARY EDEMA; HAS HAD PNEUMONIA A FEW TIMES) Pneumonia Cardiac: Yes Atrial Fibrillation, Coronary Artery Disease, Heart Attack, High Cholesterol, Hypertension, Syncope Neurological: Yes Neuropathy Reproductive Disorders: No Sexually Transmitted Disease: No HIV/AIDS: No Genitourinary: Yes Kidney Stones, Renal Failure, Dialysis Gastrointestinal: Yes Gastroesophageal Reflux Musculoskeletal: Yes (CHROINC NECK PAOIN ) Chronic Back Pain, Gout Endocrine: Yes Hypothyroidsim, Diabetes, Non-Insulin dep HEENT: No Glaucoma Hearing Impairment: Denies Cancer: Yes Lymphoma, Thyroid Did You Recieve Any Treatments: Yes What Type of Treatment Did You: Chemotherapy, Radiation Psychosocial: Yes Anxiety Integumentary: No Blood Disorders: No Adverse Reaction/Blood Tranf: No Family Medical History Reviewed Nursing Family Hx Cardiovascular disease 19 MOTHER G8 BROTHER (heart attack at 16 and is 72 years old now) FH: bladder cancer 19 FATHER FH: breast cancer 19 MOTHER Hypertension G8 SISTER Parkinson's disease G8 SISTER Heart Disease, Cancer, Hypertension Physical Exam Vital Signs - First Documented 11/04/17 11/04/17 20:10 20:20 Temp 101.3 Pulse 90 Resp 24 B/P (MAP) 195/97 (129) Pulse Ox 98 O2 Delivery NIV CPAP O2 Flow Rate 20.00 FiO2 100 Capillary Refill : Less Than 3 Seconds Height: 5'10.00" Weight: 177lbs. 9.0oz. 80.688680tb; 26.54 BMI Method:Stated General Appearance: WD/WN, severe distress HEENT: PERRL/EOMI, pharyngeal erythema Neck: full range of motion, supple Respiratory: chest non-tender, no accessory muscle use, crackles, wheezing Cardiovascular: regular rate, rhythm, no murmur Gastrointestinal: non tender, soft Extremities: non-tender, normal inspection Neurologic/Psychiatric: alert, oriented x 3 Skin: normal color, warm/dry Focused Exam Lactate Level 11/04/17 20:10: Lactic Acid Level 1.15 Lactic Acid Level Laboratory Tests Test 11/04/17 20:10 Lactic Acid Level 1.15 MMOL/L (0.50-2.00) Progress/Results/Core Measures Suspected Sepsis Recent Fever Within 48 Hours: No Infection Criteria Present: Suspected New Infection New/Unexplained Altered Menta: No Sepsis Screen: Possible Sepsis Risk SIRS Temperature:101.3 Pulse: 89 Respiratory Rate: 34 Laboratory Tests 11/04/17 20:10: White Blood Count 15.6H Blood Pressure 195 /97 Mean: 129 11/04/17 20:10: Lactic Acid Level 1.15 Laboratory Tests 11/04/17 20:10: Creatinine 5.42H, INR Comment 1.0, Platelet Count 171, Total Bilirubin 0.7 Results/Orders Lab Results Laboratory Tests Test 11/04/17 20:10 Range/Units White Blood Count 15.6 H 4.3-11.0 10^3/uL Red Blood Count 3.31 L 4.35-5.85 10^6/uL Hemoglobin 11.3 L 13.3-17.7 G/DL Hematocrit 32 L 40-54 % Mean Corpuscular Volume 98 80-99 FL Mean Corpuscular Hemoglobin 34 25-34 PG Mean Corpuscular Hemoglobin Concent 35 32-36 G/DL Red Cell Distribution Width 13.3 10.0-14.5 % Platelet Count 171 130-400 10^3/uL Mean Platelet Volume 9.0 7.4-10.4 FL Neutrophils (%) (Auto) 89 H 42-75 % Lymphocytes (%) (Auto) 5 L 12-44 % Monocytes (%) (Auto) 6 0-12 % Eosinophils (%) (Auto) 1 0-10 % Basophils (%) (Auto) 0 0-10 % Neutrophils # (Auto) 13.8 H 1.8-7.8 X 10^3 Lymphocytes # (Auto) 0.7 L 1.0-4.0 X 10^3 Monocytes # (Auto) 0.9 0.0-1.0 X 10^3 Eosinophils # (Auto) 0.2 0.0-0.3 10^3/uL Basophils # (Auto) 0.0 0.0-0.1 10^3/uL Neutrophils % (Manual) 82 % Lymphocytes % (Manual) 4 % Monocytes % (Manual) 6 % Eosinophils % (Manual) 1 % Basophils % (Manual) 0 % Band Neutrophils 7 % Blood Morphology Comment NORMAL Prothrombin Time 13.1 12.2-14.7 SEC INR Comment 1.0 0.8-1.4 Activated Partial Thromboplast Time 82 H 24-35 SEC Sodium Level 137 135-145 MMOL/L Potassium Level 4.9 3.6-5.0 MMOL/L Chloride Level 99 98-107 MMOL/L Carbon Dioxide Level 25 21-32 MMOL/L Anion Gap 13 5-14 MMOL/L Blood Urea Nitrogen 32 H 7-18 MG/DL Creatinine 5.42 H 0.60-1.30 MG/DL Estimat Glomerular Filtration Rate 11 BUN/Creatinine Ratio 6 Glucose Level 134 H 70-105 MG/DL Lactic Acid Level 1.15 0.50-2.00 MMOL/L Calcium Level 9.1 8.5-10.1 MG/DL Corrected Calcium 9.1 8.5-10.1 MG/DL Total Bilirubin 0.7 0.1-1.0 MG/DL Aspartate Amino Transf (AST/SGOT) 12 5-34 U/L Alanine Aminotransferase (ALT/SGPT) 8 0-55 U/L Alkaline Phosphatase 62 40-136 U/L Total Protein 7.1 6.4-8.2 GM/DL Albumin 4.0 3.2-4.5 GM/DL My Orders Orders - WILLA MIRAMONTES MD Ondansetron Injection (Zofran Injectio (11/04/17 20:07) Albuterol/Ipra Inhalation Soln (Duoneb I (11/04/17 20:08) Cbc With Automated Diff (11/04/17 20:14) Comprehensive Metabolic Panel (11/04/17 20:14) Blood Culture (11/04/17 20:14) Sputum Culture (11/04/17 20:14) Urinalysis (11/04/17 20:14) Urine Culture (11/04/17 20:14) Protime With Inr (11/04/17 20:14) Partial Thromboplastin Time (11/04/17 20:14) Chest 1 View, Ap/Pa Only (11/04/17 20:14) Ekg Tracing (11/04/17 20:14) Vital Signs Adult Sepsis Patie Q15M (11/04/17 20:14) O2 (11/04/17 20:14) Remove Rings In Anticipation O (11/04/17 20:14) Lactic Acid Analyzer (11/04/17 20:14) Albuterol/Ipra Inhalation Soln (Duoneb I (11/04/17 20:15) Svn Small Volume Nebulizer (11/04/17 20:14) Ondansetron Injection (Zofran Injectio (11/04/17 20:15) Manual Differential (11/04/17 20:10) Lidocaine 1% Inj 20 Ml (Xylocaine 1% Inj (11/04/17 20:36) Piperacillin Sodium/Tazobactam (Zosyn Vi (11/04/17 21:15) Hydralazine Injection (Apresoline Inject (11/04/17 21:31) Ipratropium 0.02% Neb Solution (Atrovent (11/04/17 22:30) Svn Small Volume Nebulizer (11/04/17 22:27) Ipratropium 0.02% Neb Solution (Atrovent (11/04/17 22:26) Medications Given in ED Current Medications Medications Dose Ordered Sig/Dee Route Start Time Stop Time Status Last Admin Dose Admin Albuterol/ Ipratropium 3 ml ONCE ONCE INH 11/04/17 20:15 11/04/17 20:16 DC 11/04/17 20:13 3 ML Hydralazine HCl 20 mg STK-MED ONCE .ROUTE 11/04/17 21:31 11/04/17 21:35 DC 11/04/17 21:39 20 MG Ipratropium Wells 0.5 mg ONCE ONCE IH 11/04/17 22:30 11/04/17 22:31 DC 11/04/17 22:33 0.5 MG Lidocaine HCl 20 ml STK-MED ONCE .ROUTE 11/04/17 20:36 11/04/17 20:40 DC 11/04/17 20:45 20 ML Ondansetron HCl 4 mg ONCE ONCE IVP 11/04/17 20:15 11/04/17 20:16 DC 11/04/17 20:11 4 MG Ondansetron HCl 4 mg STK-MED ONCE .ROUTE 11/04/17 20:07 11/04/17 20:11 DC 11/04/17 20:21 4 MG Piperacillin Sod/ Tazobactam Sod 4.5 gm/Sodium Chloride 100 ml @ 200 mls/hr ONCE ONCE IV 11/04/17 21:15 11/04/17 21:44 DC 11/04/17 21:31 200 MLS/HR Vital Signs/I&O 11/04/17 11/04/17 11/04/17 11/04/17 20:10 20:10 20:20 20:51 Temp 101.3 Pulse 90 89 Resp 24 34 B/P (MAP) 195/97 (129) Pulse Ox 98 98 93 99 O2 Delivery NIV CPAP Room Air High Flow N/C O2 Flow Rate 20.00 100.00 FiO2 100 100 9/18/18 11/04/17 11/04/17 11/04/17 20:55 21:14 22:20 22:33 Pulse Ox 95 97 96 97 O2 Delivery Vapotherm Vapotherm Vapotherm Vapotherm O2 Flow Rate 30.00 35.00 25.00 25.00 FiO2 100 90 85 85 Capillary Refill : Less Than 3 Seconds Blood Pressure Mean: 129 Progress Note : Progress Note Seen and evaluated. Patient has a port access. Labs, EKG, chest x-ray, blood cultures and lactic acid initiated. Patient immediately switched from EMS CPAP to BiPAP. He did have significant nausea. Zofran 4 mg IV given and this was repeated. Patient had episode of vomiting but was much improved after BiPAP. He was switched of Vapotherm with good success. Patient's O2 saturations had improved to the mid 90s and persisted. Patient did receive DuoNeb. We will give nebulized lidocaine for the persistent cough and throat symptoms he is having an effort to improve his status. Patient did have a fever of greater than 101. Lactic acid is not elevated but given his fever and presenting concerns, pneumonia is highly considered. He may have an element of pneumonitis from aspiration as well. Either way, patient will need admission but is on dialysis and will need to be transferred to Center capable of dialysis treatment. We will initiate Zosyn 4.5 g IV 1 pending transfer. Patient did receive hydralazine 20 mg IV for her elevated blood pressure which has helped. 2205: I did discuss the case with Dr. Jamison at [facility] in [place], [place]. We have reviewed the labs and x-ray. He has accepted the patient for admission to their facility. This was discussed with patient and family and they agree. 2245: Repeat lidocaine neb ordered and ipratropium neb ordered. This has markedly reduced his cough and he is feeling much better. We have evaluated the patient to see if he can tolerate off Vapotherm and have initiated high flow oxygen via nasal cannula which will ease transfer concerns. He is tolerating this quite well currently and we will continue to monitor. 2315: Patient's still resting peacefully. Pending room assignment and transfer. ECG Initial ECG Impression Date: Nov 04, 2017 Initial ECG Impression Time: 20:56 Initial ECG Rate: 89 Initial ECG Rhythm: Normal Sinus Comment Sinus rhythm with normal but rightward axis. No evidence of ST elevation [place]. Change from previous which was atrial fibrillation. Interpreted by me. Diagnostic Imaging Diagonstic Imaging: Xray Plain Films/CT/US/NM/MRI: chest [facility] [place], [place] NAME: STEFANO ZAVALETA [facility] REC#: [id number] PT STATUS: REG ER : 1950 PHYSICIAN: WILLA MIRAMONTES MD ADMIT DATE: 11/04/17/ER Draft Date of Exam:11/04/17 CHEST 1 VIEW, AP/PA ONLY INDICATION: Shortest of air. COMPARISON with exam of 10/21/2017 FINDINGS: A right IJ at the SVC. Loop recorder overlies the left chest. Heart size within normal limits. Questionable perihilar interstitial infiltrates having developed. The lung periphery clear. IMPRESSION: Vague increased perihilar interstitial opacities. No other infiltrate. No failure pattern. No pleural fluid. No pneumothorax. Dictated on workstation # [id number] Dict: 11/04/172033 Trans: 11/04/172038 [facility] [id number] Interpreted by: CARL ANGELES Electronically signed by: Departure Impression Primary Impression: Pneumonia of both lower lobes Qualified Codes: J18.1 - Lobar pneumonia, unspecified organism Additional Impressions: End stage renal disease on dialysis Respiratory distress Disposition: SHT-TRM HOSP Condition: Stable Transfer Transfer Time: 22:05 Transfer Facility: [place], [place], Dr. Jamison accepting Method of Transfer: EMS Departure-Patient Inst. Referrals: SEBASTIAN CALDERON MD (PCP/Family) Primary Care Physician WILLA MIRAMONTES MD Nov 04, 2017 21:08
--- OUTSIDE RECORDS SUMMARY | 2017-11-04 21:12 | XMS REPORT | Continuity of Care Document ---
Author Author [facility] Organization [facility] Address Unknown Phone Unavailable Allergies Active Description Code Type Severity Reaction Onset Reported/Identified Relationship to Patient Clinical Status Yes nitroglycerin [id number] Drug Allergy Unknown HYPOTENSION 05/17/2013 Yes No Known Drug Allergies [id number] Drug Allergy Unknown N/A 01/03/2014 Medications There is no data. 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, UNSPE 01/16/1409 SHIRA DORANTES Ot D63.1 ANEMIA IN CHRONIC KIDNEY DISEASE 01/16/1409 SHIRA DORANTES Ot E03.9 HYPOTHYROIDISM, UNSPECIFIED 01/16/1409 SHIRA DORANTES N Ot E11.9 TYPE 2 DIABETES MELLITUS WITHOUT COMPLIC 01/16/1409 SHIRA DORANTES Ot E78.5 HYPERLIPIDEMIA, UNSPECIFIED 01/16/1409 SHIRA DORANTES Ot G47.30 SLEEP APNEA, UNSPECIFIED 01/16/1409 SHIRA DORANTES N Ot G60.9 HEREDITARY AND IDIOPATHIC NEUROPATHY, UN 01/16/1409 SHIRA DORANTES Ot I12.9 HYPERTENSIVE CHRONIC KIDNEY DISEASE W ST 01/16/1409 SHIRA DORANTES Ot I25.10 ATHSCL HEART DISEASE OF [place] CORONARY 01/16/1409 SHIRA DORANTES Ot N18.4 CHRONIC KIDNEY DISEASE, STAGE 4 (SEVERE) 01/16/1409 SHIRA DORANTES Ot Z79.4 PENITENTIARY (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 01/16/1409 SHIRA DORANTES Ot Z79.899 OTHER PENITENTIARY (CURRENT) DRUG THERAPY 01/16/1409 SHIRA DORANTES Ot Z98.61 CORONARY ANGIOPLASTY STATUS 01/16/1457 TRAVON ANP Ot R29.6 REPEATED FALLS 01/16/1457 TRAVON AN Ot R53.1 WEAKNESS 04/12/2011 Ot 244.9 HYPOTHYROIDISM NOS 04/12/2011 Ot 250.62 DIAB W NEURO MANIFEST, TYPE II OR UNSPEC 04/12/2011 Ot 272.4 HYPERLIPIDEMIA NEC/NOS 04/12/2011 Ot 276.1 HYPOSMOLALITY 04/12/2011 Ot 356.9 IDIO PERIPH NEURPTHY NOS 04/12/2011 Ot 357.2 NEUROPATHY IN DIABETES 04/12/2011 Ot 401.9 HYPERTENSION NOS 04/12/2011 Ot 411.1 INTERMED CORONARY SYND 04/12/2011 Ot 414.01 CORONARY ATHEROSCLEROSIS OF [place] CORON 04/12/2011 Ot 584.9 ACUTE RENAL FAILURE, UNSPECIFIED 04/12/2011 Ot 996.72 OTH COMPLICATIONS DUE TO OTH CARD DEVICE 04/12/2011 Ot V03.82 PROPHYLACTIC VACC AGAINST STREPTOCOCCUS 04/12/2011 Ot V04.81 ND FOR PROPHYLACTIC VACCIN AND INOCULATI 04/12/2011 Ot V45.82 PERCUTANEOUS TRANSLUM CORON ANGIOPLASTY 04/19/2011 Ot 244.9 HYPOTHYROIDISM NOS 04/19/2011 Ot 250.02 DIAB CÉSAR WO COMPL, TYPE II OR UNSPEC TY 04/19/2011 Ot 272.4 HYPERLIPIDEMIA NEC/NOS 04/19/2011 Ot 300.00 ANXIETY STATE NOS 04/19/2011 Ot 311 DEPRESSIVE DISORDER NEC 04/19/2011 Ot 401.9 HYPERTENSION NOS 04/19/2011 Ot 414.01 CORONARY ATHEROSCLEROSIS OF [place] CORON 04/19/2011 Ot 786.50 CHEST PAIN NOS 04/19/2011 Ot V45.82 PERCUTANEOUS TRANSLUM CORON ANGIOPLASTY 06/13/2011 Ot 250.00 DIAB CÉSAR WO COMPL, TYPE II OR UNSPEC TY 06/13/2011 Ot 785.6 ENLARGEMENT LYMPH NODES 06/13/2011 Ot V58.67 LONG-TERM ( 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 06/15/2011 Ot 784.2 SWELLING IN HEAD NECK 06/15/2011 Ot V45.89 POSTSURGICAL STATES NEC 06/17/2011 Ot V45.82 PERCUTANEOUS TRANSLUM CORON ANGIOPLASTY 06/17/2011 Ot V57.89 REHABILITATION PROC NEC 09/19/2011 Ot 202.80 OTH LYMPHOMAS EXTRANODAL SOLID ORGAN U 12/22/2011 Ot 202.80 OTH LYMPHOMAS EXTRANODAL SOLID ORGAN U 12/22/2011 Ot 244.9 HYPOTHYROIDISM NOS 12/22/2011 Ot 250.00 DIAB CÉSAR WO COMPL, TYPE II OR UNSPEC TY 12/22/2011 Ot 272.4 HYPERLIPIDEMIA NEC/NOS 12/22/2011 Ot 356.9 IDIO PERIPH NEURPTHY NOS 12/22/2011 Ot 403.90 HYPTNSV CHR KID DIS, UNSPEC, W CHR KD ST 12/22/2011 Ot 414.00 CORON ATHEROSCLER NOS TYPE VESSEL, NATIV 12/22/2011 Ot 585.3 CHRONIC KIDNEY DISEASE, STAGE III (MODER 12/22/2011 Ot 780.57 UNSPECIFIED SLEEP APNEA 12/22/2011 Ot V45.82 PERCUTANEOUS TRANSLUM CORON ANGIOPLASTY 12/22/2011 Ot V58.0 ENCOUNTER FOR RADIOTHERAPY 12/22/2011 Ot V58.11 ENCOUNTER FOR ANTINEOPLASTIC CHEMOTHERAP 12/22/2011 Ot V58.67 LONG-TERM ( 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 12/22/2011 Ot V58.69 OTH MED,LT, CURRENT USE 12/22/2011 Ot V58.81 FIT/ADJ VASCULAR CATHETER 03/22/2012 Ot 202.80 OTH LYMPHOMAS EXTRANODAL SOLID ORGAN U 03/22/2012 Ot 244.9 HYPOTHYROIDISM NOS 03/22/2012 Ot 250.00 DIAB CÉSAR WO COMPL, TYPE II OR UNSPEC TY 03/22/2012 Ot 272.4 HYPERLIPIDEMIA NEC/NOS 03/22/2012 Ot 356.9 IDIO PERIPH NEURPTHY NOS 03/22/2012 Ot 403.90 HYPTNSV CHR KID DIS, UNSPEC, W CHR KD ST 03/22/2012 Ot 414.00 CORON ATHEROSCLER NOS TYPE VESSEL, NATIV 03/22/2012 Ot 585.3 CHRONIC KIDNEY DISEASE, STAGE III (MODER 03/22/2012 Ot 780.57 UNSPECIFIED SLEEP APNEA 03/22/2012 Ot V45.82 PERCUTANEOUS TRANSLUM CORON ANGIOPLASTY 03/22/2012 Ot V58.0 ENCOUNTER FOR RADIOTHERAPY 03/22/2012 Ot V58.67 LONG-TERM ( 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 03/22/2012 Ot V58.69 OTH MED,LT, CURRENT USE 08/04/2012 SHIRA DORANTES Ot 202.80 OTH LYMPHOMAS EXTRANODAL SOLID ORGAN U 08/04/2012 SHIRA DORANTES Ot 244.9 HYPOTHYROIDISM NOS 08/04/2012 SHIRA DORANTES Ot 250.00 DIAB CÉSAR WO COMPL, TYPE II OR UNSPEC TY 08/04/2012 JAYNA, BOBAN N Ot 272.4 HYPERLIPIDEMIA NEC/NOS 08/04/2012 SHIRA DORANTES N Ot 356.9 IDIO PERIPH NEURPTHY NOS 08/04/2012 SHIRA DORANTES Ot 403.90 HYPTNSV CHR KID DIS, UNSPEC, W CHR KD ST 08/04/2012 SHIRA DORANTES Ot 414.00 CORON ATHEROSCLER NOS TYPE VESSEL, NATIV 08/04/2012 SHIRA DORANTES Ot 585.3 CHRONIC KIDNEY DISEASE, STAGE III (MODER 08/04/2012 SHIRA DORANTES Ot 780.57 UNSPECIFIED SLEEP APNEA 08/04/2012 SHIRA DORANTES Ot V45.82 PERCUTANEOUS TRANSLUM CORON ANGIOPLASTY 08/04/2012 SHIRA DORANTES Ot V58.67 LONG-TERM (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 08/04/2012 SHIRA DORANTES Ot V58.69 OTH MED,LT,CURRENT USE 08/04/2012 SHIRA DORANTES Ot V58.81 FIT/ADJ VASCULAR CATHETER 09/11/2012 SEBASTIAN CALDERON MD Ot 250.02 DIAB CÉSAR WO COMPL, TYPE II OR UNSPEC TY 09/11/2012 SEBASTIAN CALDERON MD Ot 272.4 HYPERLIPIDEMIA NEC/NOS 09/11/2012 SEBASTIAN CALDERON MD Ot 401.9 HYPERTENSION NOS 09/11/2012 SEBASTIAN CALDERON MD Ot 414.01 CORONARY ATHEROSCLEROSIS OF [place] CORON 09/11/2012 SEBASTIAN CALDERNO MD Ot 780.2 SYNCOPE AND COLLAPSE 09/11/2012 SEBASTIAN CALDERON MD Ot 786.2 COUGH 09/11/2012 SEBASTIAN CALDERON MD Ot 799.02 HYPOXEMIA 09/11/2012 SEBASTIAN CALDERON MD Ot 873.0 OPEN WOUND OF SCALP 09/11/2012 SEBASTIAN ACLDERON MD Ot V45.82 PERCUTANEOUS TRANSLUM CORON ANGIOPLASTY 09/11/2012 SEBASTIAN CALDERNO MD Ot V58.67 LONG-TERM (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 11/25/2012 SHIRA DORANTES Ot 202.80 OTH LYMPHOMAS EXTRANODAL SOLID ORGAN U 11/25/2012 SHIRA DORANTES Ot 244.9 HYPOTHYROIDISM NOS 11/25/2012 SHIRA DORANTES N Ot 250.00 DIAB CÉSAR WO COMPL, TYPE II OR UNSPEC TY 11/25/2012 SHIRA DORANTES Ot 272.4 HYPERLIPIDEMIA NEC/NOS 11/25/2012 SHIRA DORANTES Ot 356.9 IDIO PERIPH NEURPTHY NOS 11/25/2012 SHIRA DORANTES Ot 403.90 HYPTNSV CHR KID DIS, UNSPEC, W CHR KD ST 11/25/2012 SHIRA DORANTES Ot 414.00 CORON ATHEROSCLER NOS TYPE VESSEL, NATIV 11/25/2012 SHIRA DORANTES Ot 585.3 CHRONIC KIDNEY DISEASE, STAGE III (MODER 11/25/2012 SHIRA DORANTES Ot 780.57 UNSPECIFIED SLEEP APNEA 11/25/2012 SHIRA DORANTES Ot V45.82 PERCUTANEOUS TRANSLUM CORON ANGIOPLASTY 11/25/2012 SHIRA DORANTES Ot V58.67 LONG-TERM (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 11/25/2012 SHIRA DORANTES Ot V58.69 OTH MED,LT,CURRENT USE 11/30/2012 SEBASTIAN CALDERON MD Ot 053.9 HERPES ZOSTER NOS 11/30/2012 SEBASTIAN CALDERON MD Ot 202.80 OTH LYMPHOMAS EXTRANODAL SOLID ORGAN U 11/30/2012 SEBASTIAN CALDERON MD Ot 244.0 POSTSURGICAL HYPOTHYROID 11/30/2012 SEBASTIAN CALDERON MD Ot 250.02 DIAB CÉSAR WO COMPL, TYPE II OR UNSPEC TY 11/30/2012 SEBASTIAN CALDERON MD Ot 272.4 HYPERLIPIDEMIA NEC/NOS 11/30/2012 SEBASTIAN CALDERON MD Ot 276.9 ELECTROLYT/FLUID DIS NEC 11/30/2012 SEBASTIAN CALDERON MD Ot 401.9 HYPERTENSION NOS 11/30/2012 SEBASTIAN CALDERON MD Ot 414.01 CORONARY ATHEROSCLEROSIS OF [place] CORON 11/30/2012 SEBASTIAN CALDERON MD Ot 522.5 PERIAPICAL ABSCESS 11/30/2012 SEBASTIAN CALDERON MD Ot V10.87 HX OF THYROID MALIGNANCY 11/30/2012 SEBASTIAN CALDERON MD Ot V15.81 HX OF PAST NONCOMPLIANCE 11/30/2012 SEBASTIAN CALDERON MD Ot V45.82 PERCUTANEOUS TRANSLUM CORON ANGIOPLASTY 11/30/2012 SEBASTIAN CALDERON MD Ot V58.69 OTH MED,LT,CURRENT USE 03/14/2013 CARLOS MASSEY, YOJANA Schaefer Ot 784.0 HEADACHE 04/21/2013 LAUREL MASSEY, GEOVANNA Mar Ot 327.23 OBSTRUCTIVE SLEEP APNEA (ADULT) (PEDIATR 04/21/2013 GEOVANNA BARRAGAN MD Ot 786.09 RESPIRATORY ABNORM NEC 05/26/2013 SHIRA DORANTES Ot 202.80 OTH LYMPHOMAS EXTRANODAL SOLID ORGAN U 05/26/2013 SHIRA DORANTES N Ot 244.9 HYPOTHYROIDISM NOS 05/26/2013 SHIRA DORANTES N Ot 250.00 DIAB CÉSAR WO COMPL, TYPE II OR UNSPEC TY 05/26/2013 SHIRA DORANTES N Ot 272.4 HYPERLIPIDEMIA NEC/NOS 05/26/2013 SHIRA DORANTES N Ot 356.9 IDIO PERIPH NEURPTHY NOS 05/26/2013 SHIRA DORANTES N Ot 403.90 HYPTNSV CHR KID DIS, UNSPEC, W CHR KD ST 05/26/2013 SHIRA DORANTES N Ot 414.00 CORON ATHEROSCLER NOS TYPE VESSEL, NATIV 05/26/2013 SHIRA DORANTES N Ot 585.3 CHRONIC KIDNEY DISEASE, STAGE III (MODER 05/26/2013 SHIRA DORANTES N Ot 780.57 UNSPECIFIED SLEEP APNEA 05/26/2013 SHIRA DORANTES Ot V45.82 PERCUTANEOUS TRANSLUM CORON ANGIOPLASTY 05/26/2013 SHIRA DORANTES N Ot V58.67 LONG-TERM (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 05/26/2013 SHIRA DORANTES Ot V58.69 OTH MED,LT,CURRENT USE 05/26/2013 SHIRA DORANTES N Ot V58.81 FIT/ADJ VASCULAR CATHETER 05/31/2013 SEBASTIAN CALDERON MD Ot 038.9 SEPTICEMIA NOS 05/31/2013 SEBASTIAN CALDERON MD Ot 202.80 OTH LYMPHOMAS EXTRANODAL SOLID ORGAN U 05/31/2013 SEBASTIAN CALDERON MD Ot 244.9 HYPOTHYROIDISM NOS 05/31/2013 SEBASTIAN CALDERON MD Ot 250.40 DIAB W RENAL MANIFEST, TYPE II OR UNSPEC 05/31/2013 SEBASTIAN CALDERON MD Ot 250.62 DIAB W NEURO MANIFEST, TYPE II OR UNSPEC 05/31/2013 SEBASTIAN CALDERON MD Ot 250.80 DIAB W OTH SPEC MANIFEST, TYPE II OR UNS 05/31/2013 SEBASTIAN CALDERON MD Ot 272.4 HYPERLIPIDEMIA NEC/NOS 05/31/2013 SEBASTIAN CALDERON MD Ot 276.1 HYPOSMOLALITY 05/31/2013 SEBASTIAN CALDERON MD Ot 311 DEPRESSIVE DISORDER NEC 05/31/2013 SEBASTIAN CALDERON MD Ot 357.2 NEUROPATHY IN DIABETES 05/31/2013 SEBASTIAN CALDERON MD Ot 401.9 HYPERTENSION NOS 05/31/2013 SEBASTIAN CALDERON MD Ot 482.9 BACTERIAL PNEUMONIA NOS 05/31/2013 SEBASTIAN CALDERON MD Ot 511.9 PLEURAL EFFUSION NOS 05/31/2013 SEBASTIAN CALDERON MD Ot 558.9 NONINF GASTROENTERIT NEC 05/31/2013 SEBASTIAN CALDERON MD Ot 583.81 NEPHRITIS NOS IN OTH DIS 05/31/2013 SEBASTIAN CALDERON MD Ot 584.9 ACUTE RENAL FAILURE, UNSPECIFIED 05/31/2013 SEBASTIAN CALDERON MD Ot 599.0 URIN TRACT INFECTION NOS 05/31/2013 SEBASTIAN CALDERON MD Ot 786.2 COUGH 05/31/2013 SEBASTIAN CALDERON MD Ot 995.92 SEVERE SEPSIS 05/31/2013 SEBASTIAN CALDERON MD Ot V10.87 HX OF THYROID MALIGNANCY 05/31/2013 SEBASTIAN CALDERON MD Ot V15.3 HX OF IRRADIATION 05/31/2013 SEBASTIAN CALDERON MD Ot V15.81 HX OF PAST NONCOMPLIANCE 05/31/2013 SEBASTIAN CALDERON MD Ot V58.67 LONG-TERM (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 07/15/2013 ABRAHAM MARC DO Ot 455.0 INT HEMORRHOID W/O COMPL 07/15/2013 ABRAHAM MARC DO Ot 569.3 RECTAL ANAL HEMORRHAGE 07/15/2013 ABRAHAM MARC DO Ot V16.0 FAMILY HX-GI MALIGNANCY 08/27/2013 TEDDY HOANG MD Ot 202.80 OTH LYMPHOMAS EXTRANODAL SOLID ORGAN U 08/27/2013 TEDDY HOANG MD Ot 244.9 HYPOTHYROIDISM NOS 08/27/2013 TEDDY HOANG MD Ot 250.00 DIAB CÉSAR WO COMPL, TYPE II OR UNSPEC TY 08/27/2013 TEDDY HOANG MD Ot 403.90 HYPTNSV CHR KID DIS, UNSPEC, W CHR KD ST 08/27/2013 TEDDY HOANG MD Ot 414.01 CORONARY ATHEROSCLEROSIS OF [place] CORON 08/27/2013 TEDDY HOANG MD Ot 585.9 CHRONIC KIDNEY DISEASE, UNSPECIFIED 08/27/2013 TEDDY HOANG MD Ot V15.81 HX OF PAST NONCOMPLIANCE 08/27/2013 TEDDY HOANG MD Ot V45.82 PERCUTANEOUS TRANSLUM CORON ANGIOPLASTY 08/27/2013 TEDDY HOANG MD Ot V58.67 LONG-TERM (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 08/27/2013 TEDDY HOANG MD Ot V58.69 OTH MED,LT,CURRENT USE 09/15/2013 SHIRA DORANTES Ot 202.80 OTH LYMPHOMAS EXTRANODAL SOLID ORGAN U 09/15/2013 SHIRA DORANTES Ot 244.9 HYPOTHYROIDISM NOS 09/15/2013 SHIRA DORANTES Ot 250.00 DIAB CÉSAR WO COMPL, TYPE II OR UNSPEC TY 09/15/2013 SHIRA DORANTES Ot 272.4 HYPERLIPIDEMIA NEC/NOS 09/15/2013 SHIRA DORANTES Ot 356.9 IDIO PERIPH NEURPTHY NOS 09/15/2013 SHIRA DORANTES Ot 403.90 HYPTNSV CHR KID DIS, UNSPEC, W CHR KD ST 09/15/2013 SHIRA DORANTES Ot 414.00 CORON ATHEROSCLER NOS TYPE VESSEL, NATIV 09/15/2013 SHIRA DORANTES Ot 585.3 CHRONIC KIDNEY DISEASE, STAGE III (MODER 09/15/2013 SHIRA DORANTES Ot 780.57 UNSPECIFIED SLEEP APNEA 09/15/2013 SHIRA DORANTES Ot V45.82 PERCUTANEOUS TRANSLUM CORON ANGIOPLASTY 09/15/2013 SHIRA DORANTES Ot V58.67 LONG-TERM (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 09/15/2013 SHIRA DORANTES Ot V58.69 OTH MED,LT,CURRENT USE 09/17/2013 WILVER MASSEY, [place] Arvizu Ot 786.50 CHEST PAIN NOS 11/17/2013 SEBASTIAN CALDERON MD Ot 593.89 RENAL URETERAL DIS NEC 11/17/2013 SEBASTIAN CALDERON MD Ot 789.00 ABDOMINAL PAIN, UNSPECIFIED SITE 01/03/2014 Ot 244.9 01/03/2014 Ot 240.9 01/03/2014 Ot 241.0 01/03/2014 Ot 784.2 01/03/2014 Ot 785.6 01/03/2014 Ot 785.6 01/03/2014 Ot 784.2 01/03/2014 Ot V72.84 01/03/2014 Ot V74.8 01/03/2014 Ot 202.80 01/03/2014 Ot 202.80 01/03/2014 Ot V72.84 01/03/2014 Ot 202.80 01/03/2014 Ot 250.00 01/03/2014 Ot 202.88 01/03/2014 Ot 250.02 01/03/2014 Ot 272.4 01/03/2014 Ot 401.9 01/03/2014 Ot 202.80 01/03/2014 Ot 786.05 01/03/2014 Ot 202.80 01/03/2014 Ot 202.80 01/03/2014 Ot 250.01 01/03/2014 Ot 202.81 01/03/2014 Ot 244.9 01/03/2014 Ot 250.00 01/03/2014 Ot 272.4 01/03/2014 Ot 414.00 01/03/2014 Ot 585.3 01/03/2014 Ot V15.3 01/03/2014 Ot V45.82 01/03/2014 Ot V58.67 01/03/2014 Ot V58.69 01/03/2014 Ot V87.41 01/03/2014 Ot 202.80 01/03/2014 SHIRA DORANTES Ot 202.80 01/03/2014 Ot 397.0 01/03/2014 Ot 401.9 01/03/2014 Ot 414.00 01/03/2014 Ot 424.0 01/03/2014 Ot 786.09 01/03/2014 Ot 401.9 01/03/2014 Ot 414.00 01/03/2014 Ot 786.09 01/03/2014 Ot 244.9 01/03/2014 Ot 250.03 01/03/2014 Ot 401.9 01/03/2014 Ot 272.4 01/03/2014 Ot 401.9 01/03/2014 Ot 414.00 01/03/2014 YUMIKO MASSEY, SEBASTIAN Arvizu Ot 433.10 01/03/2014 YUMIKO MASSEY, SEBASTIAN Arvizu Ot 780.2 01/03/2014 YUMIKO MASSEY, SEBASTIAN Arvizu Ot 959.01 01/03/2014 YUMIKO MASSEY, SEBASTIAN Arvizu Ot E000.8 01/03/2014 YUMIKO MASSEY, SEBASTIAN A Ot E849.7 01/03/2014 YUMIKO MASSEY, SEBASTIAN A Ot E888.9 01/03/2014 SHIRA DORANTES Ot 202.80 01/03/2014 BALTAZAR MASSEY, LIZETTE M Ot 433.10 01/03/2014 PAIGE MCLAIN S SAMPLE CHECKER Ot 202.80 01/03/2014 PAIGE MCLAIN S SAMPLE CHECKER Ot 244.9 01/03/2014 CHEMO HILAH S SAMPLE CHECKER Ot 585.3 01/03/2014 CHEMO HILAH S SAMPLE CHECKER Ot 780.4 01/03/2014 CHEMO HILAH S SAMPLE CHECKER Ot 783.21 01/03/2014 PAIGE MCLAIN S SAMPLE CHECKER Ot V15.3 01/03/2014 PAIGE MCLAIN S SAMPLE CHECKER Ot V87.41 01/03/2014 PAIGE MCLAIN S SAMPLE CHECKER Ot 202.80 01/03/2014 YUMIKO MASSEY, SEBASTIAN A Ot 272.4 01/03/2014 MADELINE CALDERON MDY A Ot 401.9 01/03/2014 MADELINE CALDERON MDY A Ot V58.69 01/03/2014 TRAVON AN SAMPLE CHECKER Ot 719.45 01/03/2014 TRAVON AN SAMPLE CHECKER Ot 786.50 01/03/2014 TRAVON AN SAMPLE CHECKER Ot E000.8 01/03/2014 TRAVON AN SAMPLE CHECKER Ot E849.6 01/03/2014 TRVAON AN SAMPLE CHECKER Ot E888.9 01/03/2014 PAIGE MCLAIN S SAMPLE CHECKER Ot 202.80 01/03/2014 CYNTHIA MCLAINAH S SAMPLE CHECKER Ot 244.9 01/03/2014 CYNTHIA MCLAINAH S SAMPLE CHECKER Ot 250.00 01/03/2014 CYNTHIA MCLAINAH S SAMPLE CHECKER Ot 272.4 01/03/2014 CHEMO HILAH S SAMPLE CHECKER Ot 356.9 01/03/2014 CYNTHIA MCLAINAH S SAMPLE CHECKER Ot 403.90 01/03/2014 PAIGE MCLAIN S SAMPLE CHECKER Ot 414.00 01/03/2014 PAIGE MCLAIN S SAMPLE CHECKER Ot 585.3 01/03/2014 CYNTHIA MCLAINAH S SAMPLE CHECKER Ot 780.57 01/03/2014 MCLAINPAIGE Matthews S SAMPLE CHECKER Ot V15.3 01/03/2014 CHEMO PAIGE S SAMPLE CHECKER Ot V45.82 01/03/2014 CHEMO PAIGE S SAMPLE CHECKER Ot V58.67 01/03/2014 CHEMO PAIGE S SAMPLE CHECKER Ot V58.69 01/03/2014 CHEMO PAIGE S SAMPLE CHECKER Ot V87.41 01/03/2014 CHEMO PAIGE S SAMPLE CHECKER Ot 202.80 01/03/2014 SHIRA DORANTES Ot 202.80 01/03/2014 TRAVON AN SAMPLE CHECKER Ot 401.9 01/03/2014 TRAVON AN SAMPLE CHECKER Ot 518.0 01/03/2014 NICOLE MASSEY, CORY A Ot 591 01/03/2014 NICOLE MASSEY, CORY A Ot 599.70 01/03/2014 NICOLE MASSEY, CORY A Ot 600.00 01/03/2014 NICOLE MASSEY, CORY A Ot 257.2 01/03/2014 NICOLE MASSEY, CORY A Ot 599.70 01/03/2014 NICOLE MASSEY, CORY A Ot 600.00 01/03/2014 TRAVON AN SAMPLE CHECKER Ot 250.01 01/03/2014 CHEMO PAIGE S SAMPLE CHECKER Ot 202.80 01/03/2014 CHEMO PAIGE S SAMPLE CHECKER Ot 202.88 01/03/2014 CHEMO PAIGE S SAMPLE CHECKER Ot 244.9 01/03/2014 CHEMO PAIGE S SAMPLE CHECKER Ot 250.00 01/03/2014 CHEMO PAIGE S SAMPLE CHECKER Ot 414.00 01/03/2014 CHEMO PAIGE S SAMPLE CHECKER Ot 585.3 01/03/2014 CHEMO PAIGE S SAMPLE CHECKER Ot V45.82 01/03/2014 CHEMO PAIGE S SAMPLE CHECKER Ot V58.67 01/03/2014 CHEMO PAIGE S SAMPLE CHECKER Ot V58.69 01/03/2014 YUMIKO MASSEY, SEBASTIAN A Ot V58.69 01/03/2014 YUMIKO MASSEY, SEBASTIAN A Ot V58.83 01/03/2014 PAIGE MCLAIN S SAMPLE CHECKER Ot 202.80 01/03/2014 CYNTHIA MCLAINBRODIE S SAMPLE CHECKER Ot 244.9 01/03/2014 PAIGE MCLAIN SAMPLE CHECKER Ot 250.00 01/03/2014 PAIGE MCLAIN SAMPLE CHECKER Ot 272.4 01/03/2014 PAIGE MCLAIN S SAMPLE CHECKER Ot 356.9 01/03/2014 PAIGE MCLAIN S SAMPLE CHECKER Ot 403.90 01/03/2014 PAIGE MCLAIN S SAMPLE CHECKER Ot 414.00 01/03/2014 PAIGE MCLAIN S SAMPLE CHECKER Ot 585.3 01/03/2014 PAIGE MCLAIN S SAMPLE CHECKER Ot 780.57 01/03/2014 PAIGE MCLAIN S SAMPLE CHECKER Ot V45.82 01/03/2014 PAIGE MCLAIN S SAMPLE CHECKER Ot V58.67 01/03/2014 PAIGE MCLAIN S SAMPLE CHECKER Ot V58.69 01/03/2014 TRAVON AN SAMPLE CHECKER Ot 250.01 01/03/2014 TRAVON AN SAMPLE CHECKER Ot 272.4 01/03/2014 TRAVON AN SAMPLE CHECKER Ot 401.9 01/03/2014 YUMIKO MASSEY, SEBASTIAN A Ot 250.01 01/03/2014 YUMIKO MASSEY, SEBASTIAN A Ot V58.69 01/03/2014 YUMIKO MASSEY, SEBASTIAN A Ot V58.83 01/03/2014 YUMIKO MASSEY, SEBASTIAN A Ot 285.9 01/03/2014 YUMIKO MASSEY, SEBASTIAN A Ot 786.2 01/03/2014 YUMIKO MASSEY, SEBASTIAN A Ot 786.2 01/03/2014 TRAVON AN SAMPLE CHECKER Ot 285.9 01/03/2014 TRAVON AN SAMPLE CHECKER Ot 288.60 01/03/2014 YUMIKO MASSEY, SEBASTIAN A Ot 285.9 01/03/2014 YUMIKO MASSEY, SEBASTIAN A Ot 490 01/03/2014 YUMIKO MASSEY, SEBASTIAN A Ot 780.79 01/03/2014 ABRAHAM MARC DO Ot V72.84 01/03/2014 TIESHA LOVE Ot 250.92 01/03/2014 TIESHA LOVE Ot 272.4 01/03/2014 TIESHA LOVE Ot 401.9 01/03/2014 TIESHA LOVE Ot 414.01 01/03/2014 PAIGE MCLAIN SAMPLE CHECKER Ot 202.88 01/03/2014 PAIGE MCLAIN SAMPLE CHECKER Ot 244.9 01/03/2014 PAIGE MCLAIN S SAMPLE CHECKER Ot 250.00 01/03/2014 PAIGE MCLAIN SAMPLE CHECKER Ot 414.00 01/03/2014 PAIGE MCLAIN SAMPLE CHECKER Ot 585.3 01/03/2014 PAIGE MCLAIN S SAMPLE CHECKER Ot V58.67 01/03/2014 PAIGE MCLAIN S SAMPLE CHECKER Ot V58.69 01/03/2014 PAIGE MCLAIN SAMPLE CHECKER Ot 202.80 01/03/2014 VIKTOR MASSEY, TEDDY Andres Ot 272.4 01/03/2014 VIKTOR MASSEY, TEDDY Andres Ot 401.9 01/03/2014 VIKTOR MASSEY, TEDDY J Ot 414.00 01/03/2014 VIKTOR MASSEY, TEDDY Andres Ot 780.2 01/03/2014 VIKTOR MASSEY, TEDDY J Ot 401.9 01/03/2014 VIKTOR MASSEY, TEDDY J Ot 414.00 01/03/2014 VIKTOR MASSEY, TEDDY Andres Ot 780.2 01/03/2014 PAIGE MCLAIN SAMPLE CHECKER Ot 202.80 01/03/2014 JAYNA, BOBAN N Ot 202.80 01/03/2014 JAYNA, BOBAN N Ot 244.9 01/03/2014 JAYNA, BOBAN N Ot 250.00 01/03/2014 JAYNA, BOBAN N Ot 414.01 01/03/2014 JAYNA, BOBAN N Ot 585.3 01/03/2014 JAYNA, BOBAN N Ot V45.82 01/03/2014 JAYNA, BOBAN N Ot V58.67 01/03/2014 JAYNA, BOBAN N Ot 202.80 01/03/2014 JAYNA, BOBAN N Ot 244.9 01/03/2014 JAYNA, BOBAN N Ot 250.00 01/03/2014 JAYNA, BOBAN N Ot 272.4 01/03/2014 JAYNA, BOBAN N Ot 356.9 01/03/2014 JAYNA, BOBAN N Ot 403.90 01/03/2014 JAYNA, BOBAN N Ot 414.00 01/03/2014 JAYNA, BOBAN N Ot 585.3 01/03/2014 JAYNA, BOBAN N Ot 780.57 01/03/2014 SHIRA DORANTES Ot V45.82 01/03/2014 SHIRA DORANTES Ot V58.67 01/03/2014 SHIRA DORANTES Ot V58.69 01/03/2014 Ot 593.89 01/03/2014 Ot 789.00 01/03/2014 CORY RIVERA MD Ot 593.9 01/03/2014 Ot 593.89 01/03/2014 Ot 789.00 01/04/2014 Ot 244.9 01/04/2014 Ot 240.9 01/04/2014 Ot 241.0 01/04/2014 Ot 784.2 01/04/2014 Ot 785.6 01/04/2014 Ot 785.6 01/04/2014 Ot 784.2 01/04/2014 Ot V72.84 01/04/2014 Ot V74.8 01/04/2014 Ot 202.80 01/04/2014 Ot 202.80 01/04/2014 Ot V72.84 01/04/2014 Ot 202.80 01/04/2014 Ot 250.00 01/04/2014 Ot 202.88 01/04/2014 Ot 250.02 01/04/2014 Ot 272.4 01/04/2014 Ot 401.9 01/04/2014 Ot 202.80 01/04/2014 Ot 786.05 01/04/2014 Ot 202.80 01/04/2014 Ot 202.80 01/04/2014 Ot 250.01 01/04/2014 Ot 202.81 01/04/2014 Ot 244.9 01/04/2014 Ot 250.00 01/04/2014 Ot 272.4 01/04/2014 Ot 414.00 01/04/2014 Ot 585.3 01/04/2014 Ot V15.3 01/04/2014 Ot V45.82 01/04/2014 Ot V58.67 01/04/2014 Ot V58.69 01/04/2014 Ot V87.41 01/04/2014 Ot 202.80 01/04/2014 SHIRA DORANTES Ot 202.80 01/04/2014 Ot 397.0 01/04/2014 Ot 401.9 01/04/2014 Ot 414.00 01/04/2014 Ot 424.0 01/04/2014 Ot 786.09 01/04/2014 Ot 401.9 01/04/2014 Ot 414.00 01/04/2014 Ot 786.09 01/04/2014 Ot 244.9 01/04/2014 Ot 250.03 01/04/2014 Ot 401.9 01/04/2014 Ot 272.4 01/04/2014 Ot 401.9 01/04/2014 Ot 414.00 01/04/2014 YUMIKO MASSEY, SEBASTIAN Arvizu Ot 433.10 01/04/2014 YUMIKO MASSEY, SEBASTIAN A Ot 780.2 01/04/2014 YUMIKO MASSEY, SEBASTIAN A Ot 959.01 01/04/2014 YUMIKO MASSEY, SEBASTIAN A Ot E000.8 01/04/2014 YUMIKO MASSEY, SEBASTIAN A Ot E849.7 01/04/2014 YUMIKO MASSEY, SEBASTIAN A Ot E888.9 01/04/2014 SHIRA DORANTES Ot 202.80 01/04/2014 BALTAZAR MASSEY, LIZETTE Caputo Ot 433.10 01/04/2014 PAIGE MCLAIN SAMPLE CHECKER Ot 202.80 01/04/2014 PAIGE MCLAIN SAMPLE CHECKER Ot 244.9 01/04/2014 PAIGE MCLAIN SAMPLE CHECKER Ot 585.3 01/04/2014 PAIGE MCLAIN SAMPLE CHECKER Ot 780.4 01/04/2014 PAIGE MCLAIN SAMPLE CHECKER Ot 783.21 01/04/2014 PAIGE MCLAIN SAMPLE CHECKER Ot V15.3 01/04/2014 PAIGE MCLAIN SAMPLE CHECKER Ot V87.41 01/04/2014 PAIGE MCLAIN SAMPLE CHECKER Ot 202.80 01/04/2014 YUMIKO MASSEY, SEBASTIAN A Ot 272.4 01/04/2014 YUMIKO MASSEY, SEBASTIAN A Ot 401.9 01/04/2014 YUMIKO MASSEY, SEBASTIAN A Ot V58.69 01/04/2014 TRAVON AN SAMPLE CHECKER Ot 719.45 01/04/2014 TRAVON AN SAMPLE CHECKER Ot 786.50 01/04/2014 TRAVON AN SAMPLE CHECKER Ot E000.8 01/04/2014 TRAVON AN SAMPLE CHECKER Ot E849.6 01/04/2014 TRAVON AN SAMPLE CHECKER Ot E888.9 01/04/2014 PAIGE MCLAIN SAMPLE CHECKER Ot 202.80 01/04/2014 PAIGE MCLAIN S SAMPLE CHECKER Ot 244.9 01/04/2014 PAIGE MCLAIN S SAMPLE CHECKER Ot 250.00 01/04/2014 PAIGE MCLAIN S SAMPLE CHECKER Ot 272.4 01/04/2014 PAIGE MCLAIN S SAMPLE CHECKER Ot 356.9 01/04/2014 PAIGE MCLAIN S SAMPLE CHECKER Ot 403.90 01/04/2014 PAIGE MCLAIN S SAMPLE CHECKER Ot 414.00 01/04/2014 PAIGE MCLAIN S SAMPLE CHECKER Ot 585.3 01/04/2014 PAIGE MCLAIN S SAMPLE CHECKER Ot 780.57 01/04/2014 PAIGE MCLAIN S SAMPLE CHECKER Ot V15.3 01/04/2014 PAIGE MCLAIN S SAMPLE CHECKER Ot V45.82 01/04/2014 PAIGE MCLAIN S SAMPLE CHECKER Ot V58.67 01/04/2014 MCLAINPAIGE Matthews S SAMPLE CHECKER Ot V58.69 01/04/2014 MCLAINPAIGE Matthews S SAMPLE CHECKER Ot V87.41 01/04/2014 MCLAINPAIGE Matthews S SAMPLE CHECKER Ot 202.80 01/04/2014 SHIRA DORANTES Ot 202.80 01/04/2014 TRAVON AN SAMPLE CHECKER Ot 401.9 01/04/2014 TRAVON AN SAMPLE CHECKER Ot 518.0 01/04/2014 NICOLE MASSEY, CORY A Ot 591 01/04/2014 NICOLE MASSEY, CORY A Ot 599.70 01/04/2014 NICOLE MASSEY, CORY A Ot 600.00 01/04/2014 NICOLE MASSEY, CORY A Ot 257.2 01/04/2014 NICOLE MASSEY, CORY A Ot 599.70 01/04/2014 NICOLE MASSEY, CORY A Ot 600.00 01/04/2014 TRAVON AN SAMPLE CHECKER Ot 250.01 01/04/2014 MCLAINPAIGE Matthews S SAMPLE CHECKER Ot 202.80 01/04/2014 MCLAINPAIGE Matthews S SAMPLE CHECKER Ot 202.88 01/04/2014 MCLAINPAIGE Matthews S SAMPLE CHECKER Ot 244.9 01/04/2014 MCLAINPAIGE Matthews S SAMPLE CHECKER Ot 250.00 01/04/2014 PAIGE MCLAIN S SAMPLE CHECKER Ot 414.00 01/04/2014 PAIGE MCLAIN S SAMPLE CHECKER Ot 585.3 01/04/2014 PAIGE MCLAIN S SAMPLE CHECKER Ot V45.82 01/04/2014 PAIGE MCLAIN S SAMPLE CHECKER Ot V58.67 01/04/2014 PAIGE MCLAIN S SAMPLE CHECKER Ot V58.69 01/04/2014 YUMIKO MASSEY, SEBASTIAN A Ot V58.69 01/04/2014 YUMIKO MASSEY, SEBASTIAN A Ot V58.83 01/04/2014 PAIGE MCLAIN S SAMPLE CHECKER Ot 202.80 01/04/2014 PAIGE MCLAIN S SAMPLE CHECKER Ot 244.9 01/04/2014 PAIGE MCLAIN S SAMPLE CHECKER Ot 250.00 01/04/2014 PAIGE MCLAIN S SAMPLE CHECKER Ot 272.4 01/04/2014 PAIGE MCLAIN S SAMPLE CHECKER Ot 356.9 01/04/2014 MCLAINPAIGE Matthews S SAMPLE CHECKER Ot 403.90 01/04/2014 PAIGE MCLAIN S SAMPLE CHECKER Ot 414.00 01/04/2014 PAIGE MCLAIN S SAMPLE CHECKER Ot 585.3 01/04/2014 PAIGE MCLAIN S SAMPLE CHECKER Ot 780.57 01/04/2014 PAIGE MCLAIN S SAMPLE CHECKER Ot V45.82 01/04/2014 PAIGE MCLAIN S SAMPLE CHECKER Ot V58.67 01/04/2014 PAIGE MCLAIN S SAMPLE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 CHECKER Ot 244.9 03/07/2014 CHEMO HILAH S SAMPLE CHECKER Ot 250.00 03/07/2014 MCLAIN HILAH S SAMPLE CHECKER Ot 272.4 03/07/2014 MCLAIN HILAH S SAMPLE CHECKER Ot 356.9 03/07/2014 MCLAIN HILAH S SAMPLE CHECKER Ot 403.90 03/07/2014 MCLAIN HILAH S SAMPLE CHECKER Ot 414.00 03/07/2014 MCLAIN HILAH S SAMPLE CHECKER Ot 585.3 03/07/2014 MCLAIN HILAH S SAMPLE CHECKER Ot 780.57 03/07/2014 MCLAIN, HILAH S SAMPLE CHECKER Ot V15.3 03/07/2014 CHEMO PAIGE S SAMPLE CHECKER Ot V45.82 03/07/2014 CHEMO PAIGE S SAMPLE CHECKER Ot V58.67 03/07/2014 CHEMO PAIGE S SAMPLE CHECKER Ot V58.69 03/07/2014 CHEMO PAIGE S SAMPLE CHECKER Ot V87.41 03/07/2014 CHEMO PAIGE S SAMPLE CHECKER Ot 202.80 03/07/2014 JAYNASHIRA CONRAD Gen Ot 202.80 03/07/2014 TARVON AN SAMPLE CHECKER Ot 401.9 03/07/2014 TRAVON AN SAMPLE CHECKER Ot 518.0 03/07/2014 NICOLE MASSEY, CORY A Ot 591 03/07/2014 NICOLE MASSEY, CORY A Ot 599.70 03/07/2014 NICOLE MASSEY, CORY A Ot 600.00 03/07/2014 NICOLE MASSEY, CORY A Ot 257.2 03/07/2014 NICOLE MASSEY, CORY A Ot 599.70 03/07/2014 NICOLE MASSEY, CORY A Ot 600.00 03/07/2014 TRAVON AN SAMPLE CHECKER Ot 250.01 03/07/2014 CHEMO PAIGE S SAMPLE CHECKER Ot 202.80 03/07/2014 CHEMO PAIGE S SAMPLE CHECKER Ot 202.88 03/07/2014 CHEMO PAIGE S SAMPLE CHECKER Ot 244.9 03/07/2014 CHEMO PAIGE S SAMPLE CHECKER Ot 250.00 03/07/2014 CHEMO PAIGE S SAMPLE CHECKER Ot 414.00 03/07/2014 CHEMO PAIGE S SAMPLE CHECKER Ot 585.3 03/07/2014 CHEMO PAIGE S SAMPLE CHECKER Ot V45.82 03/07/2014 CHEMO PAIGE S SAMPLE CHECKER Ot V58.67 03/07/2014 CHEMO PAIGE S SAMPLE CHECKER Ot V58.69 03/07/2014 YUMIKO MASSEY, SEBASTIAN A Ot V58.69 03/07/2014 YUMIKO MASSEY, SEBASTIAN Arvizu Ot V58.83 03/07/2014 CHEMO PAIGE S SAMPLE CHECKER Ot 202.80 03/07/2014 CHEMO PAIGE S SAMPLE CHECKER Ot 244.9 03/07/2014 PAIGE MCLAIN SAMPLE CHECKER Ot 250.00 03/07/2014 PAIGE MCLAIN S SAMPLE CHECKER Ot 272.4 03/07/2014 PAIGE MCLAIN S SAMPLE CHECKER Ot 356.9 03/07/2014 PAIGE MCLAIN S SAMPLE CHECKER Ot 403.90 03/07/2014 PAIGE MCLAIN S SAMPLE CHECKER Ot 414.00 03/07/2014 PAIGE MCLAIN S SAMPLE CHECKER Ot 585.3 03/07/2014 PAIGE MCLAIN S SAMPLE CHECKER Ot 780.57 03/07/2014 PAIGE MCLAIN S SAMPLE CHECKER Ot V45.82 03/07/2014 PAIGE MCLAIN S SAMPLE CHECKER Ot V58.67 03/07/2014 PAIGE MCLAIN S SAMPLE CHECKER Ot V58.69 03/07/2014 TRAVON AN SAMPLE CHECKER Ot 250.01 03/07/2014 TRAVON AN SAMPLE CHECKER Ot 272.4 03/07/2014 TRAVON AN SAMPLE CHECKER Ot 401.9 03/07/2014 YUMIKO MASSEY, SEBASTIAN A Ot 250.01 03/07/2014 YUMIKO MASSEY, SEBASTIAN A Ot V58.69 03/07/2014 YUMIKO MASSEY, SEBASTIAN A Ot V58.83 03/07/2014 YUMIKO MASSEY, SEBASTIAN A Ot 285.9 03/07/2014 YUMIKO MASSEY, SEBASTIAN A Ot 786.2 03/07/2014 YUMIKO MASSEY, SEBASTIAN A Ot 786.2 03/07/2014 TRAVON AN SAMPLE CHECKER Ot 285.9 03/07/2014 TRAVON AN SAMPLE CHECKER Ot 288.60 03/07/2014 YUMIKO MASSEY, SEBASTIAN A Ot 285.9 03/07/2014 YUMIKO MASSEY, SEBASTIAN A Ot 490 03/07/2014 YUMIKO MASSEY, SEBASTIAN A Ot 780.79 03/07/2014 ABRAHAM MARC DO Ot V72.84 03/07/2014 TIESHA LOVE Ot 250.92 03/07/2014 TIESHA LOVE Ot 272.4 03/07/2014 TIESHA LOVE Ot 401.9 03/07/2014 TIESHA LOVE Ot 414.01 03/07/2014 PAIGE MCLAIN S SAMPLE CHECKER Ot 202.88 03/07/2014 PAIGE MCLAIN SAMPLE CHECKER Ot 244.9 03/07/2014 PAIGE MCLAIN S SAMPLE CHECKER Ot 250.00 03/07/2014 PAIGE MCLAIN S SAMPLE CHECKER Ot 414.00 03/07/2014 PAIGE MCLAIN S SAMPLE CHECKER Ot 585.3 03/07/2014 PAIGE MCLAIN S SAMPLE CHECKER Ot V58.67 03/07/2014 PAIGE MCLAIN S SAMPLE CHECKER Ot V58.69 03/07/2014 PAIGE MCLAIN S SAMPLE CHECKER Ot 202.80 03/07/2014 VIKTOR MASSEY, TEDDY Andres Ot 272.4 03/07/2014 VIKTOR MASSEY, TEDDY Andres Ot 401.9 03/07/2014 VIKTOR MASSEY, TEDDY Andres Ot 414.00 03/07/2014 VIKTOR MASSEY, TEDDY Andres Ot 780.2 03/07/2014 VIKTOR MASSEY, TEDDY Andres Ot 401.9 03/07/2014 VIKTOR MASSEY, TEDDY Andres Ot 414.00 03/07/2014 VIKTOR MASSEY, TEDDY Andres Ot 780.2 03/07/2014 PAIGE MCLAIN SAMPLE CHECKER Ot 202.80 03/07/2014 JAYNA, BOBAN N Ot 202.80 03/07/2014 JAYNA, BOBAN N Ot 244.9 03/07/2014 JAYNA, BOBAN N Ot 250.00 03/07/2014 JAYNA, BOBAN N Ot 414.01 03/07/2014 JAYNA, BOBAN N Ot 585.3 03/07/2014 JAYNA, BOBAN N Ot V45.82 03/07/2014 JAYNA, BOBAN N Ot V58.67 03/07/2014 Ot 593.89 03/07/2014 Ot 789.00 03/07/2014 NICOLE MASSEY, CORY A Ot 593.9 03/07/2014 VIKTOR MASSEY, TEDDY Andres Ot V45.82 03/07/2014 VIKTOR MASSEY, TEDDY Andres Ot V57.89 03/07/2014 JAYAN, BOBAN N Ot 202.80 03/07/2014 JAYNA, BOBAN N Ot 244.9 03/07/2014 JAYNA, BOBAN N Ot 250.00 03/07/2014 JAYNA, BOBAN N Ot 272.4 03/07/2014 SHIRA DORANTES N Ot 356.9 03/07/2014 SHIRA DORANTES N Ot 403.90 03/07/2014 SHIRA DORANTES N Ot 414.00 03/07/2014 SHIRA DORANTES N Ot 585.3 03/07/2014 SHIRA DORANTES N Ot 780.57 03/07/2014 SHIRA DORANTES N Ot V45.82 03/07/2014 SHIRA DORANTES N Ot V58.67 03/07/2014 SHIRA DORANTES N Ot V58.69 03/07/2014 TRAVON AN SAMPLE CHECKER Ot 721.0 03/07/2014 TRAVON AN SAMPLE CHECKER Ot 721.3 03/07/2014 TRAVON AN SAMPLE CHECKER Ot E000.8 03/07/2014 TRAVON AN SAMPLE CHECKER Ot E819.9 03/07/2014 TRAVON AN SAMPLE CHECKER Ot 250.00 03/07/2014 TRAVON AN SAMPLE CHECKER Ot 787.01 03/08/2014 Ot 240.9 03/08/2014 Ot 241.0 03/08/2014 Ot 784.2 03/08/2014 Ot 785.6 03/08/2014 Ot 785.6 03/08/2014 Ot 784.2 03/08/2014 Ot V72.84 03/08/2014 Ot V74.8 03/08/2014 Ot 202.80 03/08/2014 Ot 202.80 03/08/2014 Ot V72.84 03/08/2014 Ot 202.80 03/08/2014 Ot 250.00 03/08/2014 Ot 202.88 03/08/2014 Ot 250.02 03/08/2014 Ot 272.4 03/08/2014 Ot 401.9 03/08/2014 Ot 202.80 03/08/2014 Ot 786.05 03/08/2014 Ot 202.80 03/08/2014 Ot 202.80 03/08/2014 Ot 250.01 03/08/2014 Ot 202.81 03/08/2014 Ot 244.9 03/08/2014 Ot 250.00 03/08/2014 Ot 272.4 03/08/2014 Ot 414.00 03/08/2014 Ot 585.3 03/08/2014 Ot V15.3 03/08/2014 Ot V45.82 03/08/2014 Ot V58.67 03/08/2014 Ot V58.69 03/08/2014 Ot V87.41 03/08/2014 Ot 202.80 03/08/2014 SHIRA DORANTES Ot 202.80 03/08/2014 Ot 397.0 03/08/2014 Ot 401.9 03/08/2014 Ot 414.00 03/08/2014 Ot 424.0 03/08/2014 Ot 786.09 03/08/2014 Ot 401.9 03/08/2014 Ot 414.00 03/08/2014 Ot 786.09 03/08/2014 Ot 244.9 03/08/2014 Ot 250.03 03/08/2014 Ot 401.9 03/08/2014 Ot 272.4 03/08/2014 Ot 401.9 03/08/2014 Ot 414.00 03/08/2014 YUMIKO MASSEY, SEBASTIAN Arvizu Ot 433.10 03/08/2014 YUMIKO MASSEY, SEBASTIAN Arvizu Ot 780.2 03/08/2014 YUMIKO MASSEY, SEBASTIAN Arvizu Ot 959.01 03/08/2014 YUMIKO MASSEY, SEBASTIAN Arvizu Ot E000.8 03/08/2014 YUMIKO MASSEY, SEBASTIAN Arvizu Ot E849.7 03/08/2014 YUMIKO MASSEY, SEBASTIAN Arvizu Ot E888.9 03/08/2014 JAYNASHIRA Gen Ot 202.80 03/08/2014 BALTAZAR MASSEY, LIZETTE Caputo Ot 433.10 03/08/2014 PAIGE MCLAIN SAMPLE CHECKER Ot 202.80 03/08/2014 PAIGE MCLAIN SAMPLE CHECKER Ot 244.9 03/08/2014 PAIGE MCLAIN SAMPLE CHECKER Ot 585.3 03/08/2014 PAIGE MCLAIN SAMPLE CHECKER Ot 780.4 03/08/2014 PAIGE MCLAIN SAMPLE CHECKER Ot 783.21 03/08/2014 PAIGE MCLAIN SAMPLE CHECKER Ot V15.3 03/08/2014 PAIGE MCLAIN SAMPLE CHECKER Ot V87.41 03/08/2014 PAIGE MCLAIN SAMPLE CHECKER Ot 202.80 03/08/2014 YUMIKO MASSEY, SEBASTIAN A Ot 272.4 03/08/2014 YUMIKO MASSEY, SEBASTIAN A Ot 401.9 03/08/2014 YUMIKO MASSEY, SEBASTIAN A Ot V58.69 03/08/2014 ANTRAVON SAMPLE CHECKER Ot 719.45 03/08/2014 TRAVON AN SAMPLE CHECKER Ot 786.50 03/08/2014 TRAVON AN SAMPLE CHECKER Ot E000.8 03/08/2014 TRAVON AN SAMPLE CHECKER Ot E849.6 03/08/2014 TRAVON AN SAMPLE CHECKER Ot E888.9 03/08/2014 MCLAINPAIGE Matthews S SAMPLE CHECKER Ot 202.80 03/08/2014 MCLAINPAIGE Matthews S SAMPLE CHECKER Ot 244.9 03/08/2014 MCLAIN, HILAH S SAMPLE CHECKER Ot 250.00 03/08/2014 MCLAIN, HILAH S SAMPLE CHECKER Ot 272.4 03/08/2014 MCLAINPAIGE Matthews S SAMPLE CHECKER Ot 356.9 03/08/2014 MCLAINPAIGE Matthews S SAMPLE CHECKER Ot 403.90 03/08/2014 MCLAINPAIGE Matthews S SAMPLE CHECKER Ot 414.00 03/08/2014 MCLAINPAIGE Matthews S SAMPLE CHECKER Ot 585.3 03/08/2014 MCLAINPAIGE Matthews S SAMPLE CHECKER Ot 780.57 03/08/2014 MCLAINPAIGE Matthews S SAMPLE CHECKER Ot V15.3 03/08/2014 MCLAINPAIGE aMtthews S SAMPLE CHECKER Ot V45.82 03/08/2014 MCLAINPAIGE Matthews S SAMPLE CHECKER Ot V58.67 03/08/2014 MCLAINPAIGE Matthews S SAMPLE CHECKER Ot V58.69 03/08/2014 MCLAINPAIGE Matthews S SAMPLE CHECKER Ot V87.41 03/08/2014 MCLAINPAIGE Matthews S SAMPLE CHECKER Ot 202.80 03/08/2014 SHIRA DORANTES Ot 202.80 03/08/2014 NATALIYATRAVON SAMPLE CHECKER Ot 401.9 03/08/2014 NATALIYATRAVON SAMPLE CHECKER Ot 518.0 03/08/2014 NICOLE MASSEY, CORY A Ot 591 03/08/2014 NICOLE MASSEY, CORY A Ot 599.70 03/08/2014 NICOLE MASSEY, CORY A Ot 600.00 03/08/2014 NICOLE MASSEY, CORY A Ot 257.2 03/08/2014 NICOLE MASSEY, CORY A Ot 599.70 03/08/2014 NICOLE MASSEY, CORY A Ot 600.00 03/08/2014 TRAVON AN SAMPLE CHECKER Ot 250.01 03/08/2014 MCLAINPAIGE S SAMPLE CHECKER Ot 202.80 03/08/2014 MCLAINPAIGE S SAMPLE CHECKER Ot 202.88 03/08/2014 MCLAINPAIGE S SAMPLE CHECKER Ot 244.9 03/08/2014 MCLAINPAIGE S SAMPLE CHECKER Ot 250.00 03/08/2014 MCLAINPAIGE S SAMPLE CHECKER Ot 414.00 03/08/2014 MCLAINPAIGE S SAMPLE CHECKER Ot 585.3 03/08/2014 MCLAINPAIGE S SAMPLE CHECKER Ot V45.82 03/08/2014 MCLAINPAIGE S SAMPLE CHECKER Ot V58.67 03/08/2014 MCLAINPAIGE S SAMPLE CHECKER Ot V58.69 03/08/2014 YUMIKO MASSEY, SEBASTIAN A Ot V58.69 03/08/2014 YUMIKO MASSEY, SEBASTIAN A Ot V58.83 03/08/2014 MCLAINPAIGE S SAMPLE CHECKER Ot 202.80 03/08/2014 MCLAINPAIGE S SAMPLE CHECKER Ot 244.9 03/08/2014 MCLAINPAIGE S SAMPLE CHECKER Ot 250.00 03/08/2014 MCLAINPAIGE S SAMPLE CHECKER Ot 272.4 03/08/2014 MCLAINPAIGE S SAMPLE CHECKER Ot 356.9 03/08/2014 MCLAINPAIGE S SAMPLE CHECKER Ot 403.90 03/08/2014 MCLAINPAIGE S SAMPLE CHECKER Ot 414.00 03/08/2014 MCLAINPAIGE S SAMPLE CHECKER Ot 585.3 03/08/2014 MCLAINCYNTHIAAH S SAMPLE CHECKER Ot 780.57 03/08/2014 MCLAINPAIGE S SAMPLE CHECKER Ot V45.82 03/08/2014 MCLAINPAIGE S SAMPLE CHECKER Ot V58.67 03/08/2014 MCLAINCYNTHIAAH S SAMPLE CHECKER Ot V58.69 03/08/2014 TRAVON AN SAMPLE CHECKER Ot 250.01 03/08/2014 TRAVON AN SAMPLE CHECKER Ot 272.4 03/08/2014 TRAVON AN SAMPLE CHECKER Ot 401.9 03/08/2014 YUMIKO MASSEY, SEBASTIAN A Ot 250.01 03/08/2014 YUMIKO MASSEY, SEBASTIAN A Ot V58.69 03/08/2014 YUMIKO MASSEY, SEBASTIAN A Ot V58.83 03/08/2014 YUMIKO MASSEY, SEBASTIAN A Ot 285.9 03/08/2014 YUMIKO MASSEY, SEBASTIAN A Ot 786.2 03/08/2014 YUMIKO MASSEY, SEBASTIAN A Ot 786.2 03/08/2014 TRAVON AN SAMPLE CHECKER Ot 285.9 03/08/2014 TRAVON AN SAMPLE CHECKER Ot 288.60 03/08/2014 YUMIKO MASSEY, SEBASTIAN A Ot 285.9 03/08/2014 YUMIKO MASSEY, SEBASTIAN Arvizu Ot 490 03/08/2014 YUMIKO MASSEY, SEBASTIAN A Ot 780.79 03/08/2014 ABRAHAM MARC DO Ot V72.84 03/08/2014 TIESHA LOVE Ot 250.92 03/08/2014 TIESHA LOVE Ot 272.4 03/08/2014 TIESHA LOVE K Ot 401.9 03/08/2014 TIESHA LOVE K Ot 414.01 03/08/2014 PAIGE MCLAIN SAMPLE CHECKER Ot 202.88 03/08/2014 PAIGE MCLAIN SAMPLE CHECKER Ot 244.9 03/08/2014 PAIGE MCLAIN SAMPLE CHECKER Ot 250.00 03/08/2014 PAIGE MCLAIN SAMPLE CHECKER Ot 414.00 03/08/2014 PAIGE MCLAIN SAMPLE CHECKER Ot 585.3 03/08/2014 PAIGE MCLAIN SAMPLE CHECKER Ot V58.67 03/08/2014 PAIGE MCLAIN SAMPLE CHECKER Ot V58.69 03/08/2014 PAIEG MCLAIN SAMPLE CHECKER Ot 202.80 03/08/2014 VIKTOR MASSEY, TEDDY Andres Ot 272.4 03/08/2014 VIKTOR MASSEY, TEDDY J Ot 401.9 03/08/2014 VIKTOR MASSEY, TEDDY J Ot 414.00 03/08/2014 VIKTOR MASSEY, TEDDY J Ot 780.2 03/08/2014 VIKTOR MASSEY, TEDDY J Ot 401.9 03/08/2014 VIKTOR MASSEY, TEDDY J Ot 414.00 03/08/2014 VIKTOR MASSEY, BASHAR J Ot 780.2 03/08/2014 PAIGE MCLAIN SAMPLE CHECKER Ot 202.80 03/08/2014 JAYNA, BOBAN N Ot 202.80 03/08/2014 JAYNA, BOBAN N Ot 244.9 03/08/2014 JAYNA, BOBAN N Ot 250.00 03/08/2014 JAYNA, BOBAN N Ot 414.01 03/08/2014 JAYNA, BOBAN N Ot 585.3 03/08/2014 JAYNA, BOBAN N Ot V45.82 03/08/2014 JAYNA, BOBAN N Ot V58.67 03/08/2014 Ot 593.89 03/08/2014 Ot 789.00 03/08/2014 NICOLE MASSEY, CORY A Ot 593.9 03/08/2014 VIKTOR MASSEY, TEDDY Andres Ot V45.82 03/08/2014 VIKTOR MASSEY, TEDDY Andres Ot V57.89 03/08/2014 JAYNA, BOBAN N Ot 202.80 03/08/2014 JAYNA, BOBAN N Ot 244.9 03/08/2014 JAYNA, BOBAN N Ot 250.00 03/08/2014 JAYNA, BOBAN N Ot 272.4 03/08/2014 JAYNA, BOBAN N Ot 356.9 03/08/2014 JAYNA, BOBAN N Ot 403.90 03/08/2014 JAYNA, BOBAN N Ot 414.00 03/08/2014 JAYNA, BOBAN N Ot 585.3 03/08/2014 JAYNA, BOBAN N Ot 780.57 03/08/2014 JAYNA, BOBAN N Ot V45.82 03/08/2014 JAYNA, BOBAN N Ot V58.67 03/08/2014 JAYNA, BOBAN N Ot V58.69 03/08/2014 TRAVON AN SAMPLE CHECKER Ot 721.0 03/08/2014 TRAVON AN SAMPLE CHECKER Ot 721.3 03/08/2014 TRAVON AN SAMPLE CHECKER Ot E000.8 03/08/2014 TRAVON AN SAMPLE CHECKER Ot E819.9 03/08/2014 TRAVON AN SAMPLE CHECKER Ot 250.00 03/08/2014 TRAVON AN SAMPLE CHECKER Ot 787.01 03/19/2014 TEDDY HOANG MD Ot V45.82 03/19/2014 TEDDY HOANG MD Ot V57.89 03/24/2014 TDEDY HOANG MD Ot V45.82 03/24/2014 TEDDY HOANG MD Ot V57.89 03/29/2014 Ot 241.0 03/29/2014 Ot 784.2 03/29/2014 Ot 785.6 03/29/2014 Ot 785.6 03/29/2014 Ot 784.2 03/29/2014 Ot V72.84 03/29/2014 Ot V74.8 03/29/2014 Ot 202.80 03/29/2014 Ot 202.80 03/29/2014 Ot V72.84 03/29/2014 Ot 202.80 03/29/2014 Ot 250.00 03/29/2014 Ot 202.88 03/29/2014 Ot 250.02 03/29/2014 Ot 272.4 03/29/2014 Ot 401.9 03/29/2014 Ot 202.80 03/29/2014 Ot 786.05 03/29/2014 Ot 202.80 03/29/2014 Ot 202.80 03/29/2014 Ot 250.01 03/29/2014 Ot 202.81 03/29/2014 Ot 244.9 03/29/2014 Ot 250.00 03/29/2014 Ot 272.4 03/29/2014 Ot 414.00 03/29/2014 Ot 585.3 03/29/2014 Ot V15.3 03/29/2014 Ot V45.82 03/29/2014 Ot V58.67 03/29/2014 Ot V58.69 03/29/2014 Ot V87.41 03/29/2014 Ot 202.80 03/29/2014 SHIRA DORANTES Ot 202.80 03/29/2014 Ot 397.0 03/29/2014 Ot 401.9 03/29/2014 Ot 414.00 03/29/2014 Ot 424.0 03/29/2014 Ot 786.09 03/29/2014 Ot 401.9 03/29/2014 Ot 414.00 03/29/2014 Ot 786.09 03/29/2014 Ot 244.9 03/29/2014 Ot 250.03 03/29/2014 Ot 401.9 03/29/2014 Ot 272.4 03/29/2014 Ot 401.9 03/29/2014 Ot 414.00 03/29/2014 YUMIKO MASSEY, SEBASTIAN A Ot 433.10 03/29/2014 YUMIKO MASSEY, SEBASTIAN A Ot 780.2 03/29/2014 YUMIKO MASSEY, SEBASTIAN A Ot 959.01 03/29/2014 YUMIKO MASSEY, SEBASTIAN A Ot E000.8 03/29/2014 YUMIKO MASSEY, SEBASTIAN A Ot E849.7 03/29/2014 YUMIKO AMSSEY, SEBASTIAN A Ot E888.9 03/29/2014 SHIRA DORANTES Ot 202.80 03/29/2014 BALTAZAR MASSEY, LIZETTE Caputo Ot 433.10 03/29/2014 MCLAIN, HILAH S SAMPLE CHECKER Ot 202.80 03/29/2014 MCLAIN, HILAH S SAMPLE CHECKER Ot 244.9 03/29/2014 MCLAIN, HILAH S SAMPLE CHECKER Ot 585.3 03/29/2014 CHEMO HILAH S SAMPLE CHECKER Ot 780.4 03/29/2014 MCLAIN, HILAH S SAMPLE CHECKER Ot 783.21 03/29/2014 MCLAIN, HILAH S SAMPLE CHECKER Ot V15.3 03/29/2014 MCLAIN, HILAH S SAMPLE CHECKER Ot V87.41 03/29/2014 CHEMO HILAH S SAMPLE CHECKER Ot 202.80 03/29/2014 YUMIKO MASSEY, SEBASTIAN A Ot 272.4 03/29/2014 YUMIKO MASSEY, SEBASTIAN A Ot 401.9 03/29/2014 YUMIKO MASSEY, SEBASTIAN A Ot V58.69 03/29/2014 TRAVON AN SAMPLE CHECKER Ot 719.45 03/29/2014 TRAVON AN SAMPLE CHECKER Ot 786.50 03/29/2014 TRAVON AN SAMPLE CHECKER Ot E000.8 03/29/2014 TRAVON AN SAMPLE CHECKER Ot E849.6 03/29/2014 TRAVON AN SAMPLE CHECKER Ot E888.9 03/29/2014 CHEMO HILAH S SAMPLE CHECKER Ot 202.80 03/29/2014 MCLAIN HILAH S SAMPLE CHECKER Ot 244.9 03/29/2014 MCLAIN, HILAH S SAMPLE CHECKER Ot 250.00 03/29/2014 CHEMO HILAH S SAMPLE CHECKER Ot 272.4 03/29/2014 MCLAIN HILAH S SAMPLE CHECKER Ot 356.9 03/29/2014 PAIGE MCLAIN S SAMPLE CHECKER Ot 403.90 03/29/2014 PAIGE MCLAIN S SAMPLE CHECKER Ot 414.00 03/29/2014 PAIGE MCLAIN S SAMPLE CHECKER Ot 585.3 03/29/2014 PAIGE MCLAIN S SAMPLE CHECKER Ot 780.57 03/29/2014 PAIGE MCLAIN S SAMPLE CHECKER Ot V15.3 03/29/2014 MCLAINPAIGE S SAMPLE CHECKER Ot V45.82 03/29/2014 MCLAINPAIGE S SAMPLE CHECKER Ot V58.67 03/29/2014 MCLAINPAIGE Matthews S SAMPLE CHECKER Ot V58.69 03/29/2014 PAIGE MCLAIN S SAMPLE CHECKER Ot V87.41 03/29/2014 PAIGE MCLAIN S SAMPLE CHECKER Ot 202.80 03/29/2014 SHIRA DORANTES Ot 202.80 03/29/2014 TRAVON AN SAMPLE CHECKER Ot 401.9 03/29/2014 TRAVON AN SAMPLE CHECKER Ot 518.0 03/29/2014 NICOLE MASSEY, CORY A Ot 591 03/29/2014 NICOLE MASSEY, CORY A Ot 599.70 03/29/2014 NICOLE MASSEY, CORY A Ot 600.00 03/29/2014 NICOLE MASSEY, CORY A Ot 257.2 03/29/2014 NICOLE MASSEY, CORY A Ot 599.70 03/29/2014 NICOLE MASSEY, CORY A Ot 600.00 03/29/2014 TRAVON AN SAMPLE CHECKER Ot 250.01 03/29/2014 PAIGE MCLAIN S SAMPLE CHECKER Ot 202.80 03/29/2014 MCLAINPAIGE Matthews S SAMPLE CHECKER Ot 202.88 03/29/2014 MCLAINPAIGE Matthews S SAMPLE CHECKER Ot 244.9 03/29/2014 MCLAINPAIGE Matthews S SAMPLE CHECKER Ot 250.00 03/29/2014 MCLAINPAIGE Matthews S SAMPLE CHECKER Ot 414.00 03/29/2014 PAIGE MCLAIN S SAMPLE CHECKER Ot 585.3 03/29/2014 MCLAINPAIGE Matthews S SAMPLE CHECKER Ot V45.82 03/29/2014 MCLAINPAIGE S SAMPLE CHECKER Ot V58.67 03/29/2014 MCLAINPAIGE Matthews S SAMPLE CHECKER Ot V58.69 03/29/2014 YUMIKO MASSEY, SEBASTIAN A Ot V58.69 03/29/2014 YUMIKO MASSEY, SEBASTIAN A Ot V58.83 03/29/2014 MCLAINPAIGE Matthews S SAMPLE CHECKER Ot 202.80 03/29/2014 MCLAINPAIGE Matthews S SAMPLE CHECKER Ot 244.9 03/29/2014 MCLAINPAIGE S SAMPLE CHECKER Ot 250.00 03/29/2014 MCLAINPAIGE S SAMPLE CHECKER Ot 272.4 03/29/2014 MCLAINPAIGE S SAMPLE CHECKER Ot 356.9 03/29/2014 MCLAINPAIGE S SAMPLE CHECKER Ot 403.90 03/29/2014 MCLAINPAIGE S SAMPLE CHECKER Ot 414.00 03/29/2014 MCLAINPAIGE S SAMPLE CHECKER Ot 585.3 03/29/2014 MCLAINPAIGE S SAMPLE CHECKER Ot 780.57 03/29/2014 MCLAINPAIGE S SAMPLE CHECKER Ot V45.82 03/29/2014 MCLAINPAIGE S SAMPLE CHECKER Ot V58.67 03/29/2014 MCLAINPAIGE S SAMPLE CHECKER Ot V58.69 03/29/2014 TRAVON AN SAMPLE CHECKER Ot 250.01 03/29/2014 TRAVON AN SAMPLE CHECKER Ot 272.4 03/29/2014 TRAVON AN SAMPLE CHECKER Ot 401.9 03/29/2014 YUMIKO MASSEY, SEBASTIAN A Ot 250.01 03/29/2014 YUMIKO MASSEY, SEBASTIAN A Ot V58.69 03/29/2014 YUMIKO MASSEY, SEBASTIAN A Ot V58.83 03/29/2014 YUMIKO MASSEY, SEBASTIAN A Ot 285.9 03/29/2014 YUMIKO MASSEY, SEBASTIAN A Ot 786.2 03/29/2014 YUMIKO MASSEY, SEBASTIAN A Ot 786.2 03/29/2014 TRAVON AN SAMPLE CHECKER Ot 285.9 03/29/2014 TRAVON AN SAMPLE CHECKER Ot 288.60 03/29/2014 YUMIKO MASSEY, SEBASTIAN A Ot 285.9 03/29/2014 YUMIKO MASSEY, SEBASTIAN A Ot 490 03/29/2014 YUMIKO MASSEY, SEBASTIAN A Ot 780.79 03/29/2014 ABRAHAM MARC DO Ot V72.84 03/29/2014 BRYNN ROBLEDO, TIESHA K Ot 250.92 03/29/2014 BRYNN ROBLEDO, TIESHA K Ot 272.4 03/29/2014 BRYNN ROBLEDO, TIESHA K Ot 401.9 03/29/2014 BRYNN ROBLEDO, TIESHA K Ot 414.01 03/29/2014 MCLAINPAIGE Matthews S SAMPLE CHECKER Ot 202.88 03/29/2014 MCLAINPAIGE S SAMPLE CHECKER Ot 244.9 03/29/2014 MCLAIN, CYNTHIAAH S SAMPLE CHECKER Ot 250.00 03/29/2014 MCLAIN, HILAH S SAMPLE CHECKER Ot 414.00 03/29/2014 MCLAIN, CYNTHIAAH S SAMPLE CHECKER Ot 585.3 03/29/2014 MCLAIN, HILAH S SAMPLE CHECKER Ot V58.67 03/29/2014 MCLAIN, CYNTHIAAH S SAMPLE CHECKER Ot V58.69 03/29/2014 MCLAINPAIGE S SAMPLE CHECKER Ot 202.80 03/29/2014 VIKTOR MASSEY, TEDDY Andres Ot 272.4 03/29/2014 VIKTOR MASSEY, TEDDY Andres Ot 401.9 03/29/2014 VIKTOR MASSEY, TEDDY Andres Ot 414.00 03/29/2014 VIKTOR MASSEY, TEDDY Andres Ot 780.2 03/29/2014 VIKTOR MASSEY, TEDDY Andres Ot 401.9 03/29/2014 VIKTOR MASSEY, TEDDY Andres Ot 414.00 03/29/2014 VIKTOR MASSEY, TEDDY Andres Ot 780.2 03/29/2014 MCLAINPAIGE S SAMPLE CHECKER Ot 202.80 03/29/2014 JAYNA, BOBAN N Ot 202.80 03/29/2014 JAYNA, BOBAN N Ot 244.9 03/29/2014 JAYNA, BOBAN N Ot 250.00 03/29/2014 JAYNA, BOBAN N Ot 414.01 03/29/2014 JAYNA, BOBAN N Ot 585.3 03/29/2014 JAYNA, BOBAN N Ot V45.82 03/29/2014 JAYNA, BOBAN N Ot V58.67 03/29/2014 Ot 593.89 03/29/2014 Ot 789.00 03/29/2014 NICOLE MASSEY, CORY A Ot 593.9 03/29/2014 TEDDY HOANG MD Ot V45.82 03/29/2014 VIKTOR MASSEY, TEDDY Andres Ot V57.89 03/29/2014 JAYNA, BOBAN N Ot 202.80 03/29/2014 JAYNA, BOBAN N Ot 244.9 03/29/2014 JAYNA, BOBAN N Ot 250.00 03/29/2014 JAYNA, BOBAN N Ot 272.4 03/29/2014 JAYNA, BOBAN N Ot 356.9 03/29/2014 JAYNA, BOBAN N Ot 403.90 03/29/2014 JAYNA, BOBAN N Ot 414.00 03/29/2014 JAYNA, BOBAN N Ot 585.3 03/29/2014 JAYNA, BOBAN N Ot 780.57 03/29/2014 JAYNA, BOBAN N Ot V45.82 03/29/2014 JAYNA, BOBAN N Ot V58.67 03/29/2014 JAYNA, BOBAN N Ot V58.69 03/29/2014 TRAVON AN SAMPLE CHECKER Ot 721.0 03/29/2014 TRAVON AN SAMPLE CHECKER Ot 721.3 03/29/2014 TRAVON AN SAMPLE CHECKER Ot E000.8 03/29/2014 TRAVON AN SAMPLE CHECKER Ot E819.9 03/29/2014 TRAVON AN SAMPLE CHECKER Ot 250.00 03/29/2014 TRAVON AN SAMPLE CHECKER Ot 787.01 04/07/2014 NICOLE MASSEY, CORY A Ot 593.9 04/07/2014 VIKTOR MASSEY, TEDDY Andres Ot V45.82 04/07/2014 VIKTOR MASSEY, TEDDY Andres Ot V57.89 04/07/2014 JAYNA, BOBAN N Ot 202.80 04/07/2014 JAYNA, BOBAN N Ot 244.9 04/07/2014 JAYNA, BOBAN N Ot 250.00 04/07/2014 JAYNA, BOBAN N Ot 272.4 04/07/2014 JAYNA, BOBAN N Ot 356.9 04/07/2014 JAYNA, BOBAN N Ot 403.90 04/07/2014 JAYNA, BOBAN N Ot 414.00 04/07/2014 JAYNA, BOBAN N Ot 585.3 04/07/2014 JAYNA, BOBAN N Ot 780.57 04/07/2014 SHIRA DORANTES Ot V45.82 04/07/2014 SHIRA DORANTES Ot V58.67 04/07/2014 SHIRA DORANTES Ot V58.69 04/07/2014 NATALIYATRAVON SAMPLE CHECKER Ot 721.0 04/07/2014 NATALIYATRAVON SAMPLE CHECKER Ot 721.3 04/07/2014 NATALIYATRAVON SAMPLE CHECKER Ot E000.8 04/07/2014 NATALIYATRAVON SAMPLE CHECKER Ot E819.9 04/07/2014 TRAVON AN SAMPLE CHECKER Ot 250.00 04/07/2014 TRAVON AN SAMPLE CHECKER Ot 787.01 04/07/2014 Ot 241.0 04/07/2014 Ot 784.2 04/07/2014 Ot 785.6 04/07/2014 Ot 785.6 04/07/2014 Ot 784.2 04/07/2014 Ot V72.84 04/07/2014 Ot V74.8 04/07/2014 Ot 202.80 04/07/2014 Ot 202.80 04/07/2014 Ot V72.84 04/07/2014 Ot 202.80 04/07/2014 Ot 250.00 04/07/2014 Ot 202.88 04/07/2014 Ot 250.02 04/07/2014 Ot 272.4 04/07/2014 Ot 401.9 04/07/2014 Ot 202.80 04/07/2014 Ot 786.05 04/07/2014 Ot 202.80 04/07/2014 Ot 202.80 04/07/2014 Ot 250.01 04/07/2014 Ot 202.81 04/07/2014 Ot 244.9 04/07/2014 Ot 250.00 04/07/2014 Ot 272.4 04/07/2014 Ot 414.00 04/07/2014 Ot 585.3 04/07/2014 Ot V15.3 04/07/2014 Ot V45.82 04/07/2014 Ot V58.67 04/07/2014 Ot V58.69 04/07/2014 Ot V87.41 04/07/2014 Ot 202.80 04/07/2014 SHIRA DORANTES Ot 202.80 04/07/2014 Ot 397.0 04/07/2014 Ot 401.9 04/07/2014 Ot 414.00 04/07/2014 Ot 424.0 04/07/2014 Ot 786.09 04/07/2014 Ot 401.9 04/07/2014 Ot 414.00 04/07/2014 Ot 786.09 04/07/2014 Ot 244.9 04/07/2014 Ot 250.03 04/07/2014 Ot 401.9 04/07/2014 Ot 272.4 04/07/2014 Ot 401.9 04/07/2014 Ot 414.00 04/07/2014 YUMIKO MASSEY, SEBASTIAN A Ot 433.10 04/07/2014 YUMIKO MASSEY, SEBASTIAN A Ot 780.2 04/07/2014 YUMIKO MASSEY, SEBASTIAN A Ot 959.01 04/07/2014 YUMIKO MASSEY, SEBASTIAN A Ot E000.8 04/07/2014 YUMIKO MASSEY, SEBASTIAN A Ot E849.7 04/07/2014 YUMIKO MASSEY, SEBASTIAN A Ot E888.9 04/07/2014 SHIRA DORANTES Ot 202.80 04/07/2014 BALTAZAR MASSEY, LIZETTE Caputo Ot 433.10 04/07/2014 PAIGE MCLAIN SAMPLE CHECKER Ot 202.80 04/07/2014 PAIGE MCLAIN SAMPLE CHECKER Ot 244.9 04/07/2014 PAIGE MCLAIN S SAMPLE CHECKER Ot 585.3 04/07/2014 PAIGE MCLAIN S SAMPLE CHECKER Ot 780.4 04/07/2014 PIAGE MCLAIN S SAMPLE CHECKER Ot 783.21 04/07/2014 PAIGE MCLAIN S SAMPLE CHECKER Ot V15.3 04/07/2014 PAIGE MCLAIN S SAMPLE CHECKER Ot V87.41 04/07/2014 PAIGE MCLAIN S SAMPLE CHECKER Ot 202.80 04/07/2014 YUMIKO MASSEY, SEBASTIAN A Ot 272.4 04/07/2014 YUMIKO MASSEY, SEBASTIAN A Ot 401.9 04/07/2014 YUMIKO MASSEY, SEBASTIAN A Ot V58.69 04/07/2014 TRAVON AN SAMPLE CHECKER Ot 719.45 04/07/2014 TRAVON AN SAMPLE CHECKER Ot 786.50 04/07/2014 TRAVON AN SAMPLE CHECKER Ot E000.8 04/07/2014 TRAVON AN SAMPLE CHECKER Ot E849.6 04/07/2014 TRAVON AN SAMPLE CHECKER Ot E888.9 04/07/2014 MCLAINPAIGE Matthews S SAMPLE CHECKER Ot 202.80 04/07/2014 PAIGE MCLAIN S SAMPLE CHECKER Ot 244.9 04/07/2014 MCLAINPAIGE Matthews S SAMPLE CHECKER Ot 250.00 04/07/2014 PAIGE MCLAIN S SAMPLE CHECKER Ot 272.4 04/07/2014 MCLAINPAIGE S SAMPLE CHECKER Ot 356.9 04/07/2014 MCLAIN HILAH S SAMPLE CHECKER Ot 403.90 04/07/2014 MCLAIN HILAH S SAMPLE CHECKER Ot 414.00 04/07/2014 MCLAIN HILAH S SAMPLE CHECKER Ot 585.3 04/07/2014 MCLAIN HILAH S SAMPLE CHECKER Ot 780.57 04/07/2014 MCLAINPAIGE Matthews S SAMPLE CHECKER Ot V15.3 04/07/2014 MCLAINPAIGE Matthews S SAMPLE CHECKER Ot V45.82 04/07/2014 MCLAINPAIGE Matthews S SAMPLE CHECKER Ot V58.67 04/07/2014 MCLAINPAIGE Matthews S SAMPLE CHECKER Ot V58.69 04/07/2014 MCLAINPAIGE Matthews S SAMPLE CHECKER Ot V87.41 04/07/2014 MCLAINPAIGE Matthews S SAMPLE CHECKER Ot 202.80 04/07/2014 SHIRA DORANTES Ot 202.80 04/07/2014 TRAVON AN SAMPLE CHECKER Ot 401.9 04/07/2014 TRAVON AN SAMPLE CHECKER Ot 518.0 04/07/2014 NICOLE MASSEY, CORY A Ot 591 04/07/2014 NICOLE MASSEY, CORY A Ot 599.70 04/07/2014 NICOLE MASSEY, CORY A Ot 600.00 04/07/2014 NICOLE MASSEY, CORY A Ot 257.2 04/07/2014 NICOLE MASSEY, CORY A Ot 599.70 04/07/2014 NICOLE MASSEY, CORY A Ot 600.00 04/07/2014 TRAVON AN SAMPLE CHECKER Ot 250.01 04/07/2014 MCLAINPAIGE Matthews S SAMPLE CHECKER Ot 202.80 04/07/2014 MCLAINPAIGE S SAMPLE CHECKER Ot 202.88 04/07/2014 MCLAINPAIGE S SAMPLE CHECKER Ot 244.9 04/07/2014 PAIGE MCLAIN S SAMPLE CHECKER Ot 250.00 04/07/2014 PAIGE MCLAIN S SAMPLE CHECKER Ot 414.00 04/07/2014 PAIGE MCLAIN S SAMPLE CHECKER Ot 585.3 04/07/2014 PAIGE MCLAIN S SAMPLE CHECKER Ot V45.82 04/07/2014 PAIGE MCLAIN S SAMPLE CHECKER Ot V58.67 04/07/2014 MCLAINPAIGE Matthews S SAMPLE CHECKER Ot V58.69 04/07/2014 YUMIKO MASSEY, SEBASTIAN A Ot V58.69 04/07/2014 YUMIKO MASSEY, SEBASTIAN A Ot V58.83 04/07/2014 PAIGE MCLAIN S SAMPLE CHECKER Ot 202.80 04/07/2014 PAIGE MCLAIN S SAMPLE CHECKER Ot 244.9 04/07/2014 PAIGE MCLAIN S SAMPLE CHECKER Ot 250.00 04/07/2014 PAIGE MCLAIN S SAMPLE CHECKER Ot 272.4 04/07/2014 PAIGE MCLAIN S SAMPLE CHECKER Ot 356.9 04/07/2014 PAIGE MCLAIN S SAMPLE CHECKER Ot 403.90 04/07/2014 PAIGE MCLAIN S SAMPLE CHECKER Ot 414.00 04/07/2014 PAIGE MCLAIN S SAMPLE CHECKER Ot 585.3 04/07/2014 PAIGE MCLAIN S SAMPLE CHECKER Ot 780.57 04/07/2014 PAIGE MCLAIN S SAMPLE CHECKER Ot V45.82 04/07/2014 PAIGE MCLAIN S SAMPLE CHECKER Ot V58.67 04/07/2014 PAIGE MCLAIN S SAMPLE CHECKER Ot V58.69 04/07/2014 TRAVON AN SAMPLE CHECKER Ot 250.01 04/07/2014 TRAVON AN SAMPLE CHECKER Ot 272.4 04/07/2014 TRAVON AN SAMPLE CHECKER Ot 401.9 04/07/2014 YUMIKO MASSEY, SEBASTIAN A Ot 250.01 04/07/2014 YUMIKO MASSEY, SEBASTIAN A Ot V58.69 04/07/2014 YUMIKO MASSEY, SEBASTIAN A Ot V58.83 04/07/2014 YUMIKO MASSEY, SEBASTIAN A Ot 285.9 04/07/2014 YUMIKO MASSEY, SEBASTIAN A Ot 786.2 04/07/2014 YUMIKO MASSEY, SEBASTIAN A Ot 786.2 04/07/2014 TRAVON AN SAMPLE CHECKER Ot 285.9 04/07/2014 TRAVON AN SAMPLE CHECKER Ot 288.60 04/07/2014 YUMIKO MASSEY, SEBASTIAN Arvizu Ot 285.9 04/07/2014 YUMIKO MASSEY, SEBASTIAN Arvizu Ot 490 04/07/2014 SEBASTIAN CALDERON MD Ot 780.79 04/07/2014 ABRAHAM MARC DO Ot V72.84 04/07/2014 TIESHA LOVE Ot 250.92 04/07/2014 BRYNN ROBLEDO TIESHA K Ot 272.4 04/07/2014 JIM LOVETH K Ot 401.9 04/07/2014 TIESHA LOVE K Ot 414.01 04/07/2014 PAIGE MCLAIN SAMPLE CHECKER Ot 202.88 04/07/2014 PAIGE MCLAIN SAMPLE CHECKER Ot 244.9 04/07/2014 PAIGE MCLAIN S SAMPLE CHECKER Ot 250.00 04/07/2014 PAIGE MCLAIN S SAMPLE CHECKER Ot 414.00 04/07/2014 PAIGE MCLAIN S SAMPLE CHECKER Ot 585.3 04/07/2014 PAIGE MCLAIN S SAMPLE CHECKER Ot V58.67 04/07/2014 PAIGE MCLAIN S SAMPLE CHECKER Ot V58.69 04/07/2014 PAIGE MCLAIN SAMPLE CHECKER Ot 202.80 04/07/2014 VIKTOR MASSEY, TEDDY Andres Ot 272.4 04/07/2014 VIKTOR MASSEY, TEDDY J Ot 401.9 04/07/2014 VIKTOR MASSEY, TEDDY nAdres Ot 414.00 04/07/2014 VIKTOR MASSEY, TEDDY Andres Ot 780.2 04/07/2014 VIKTOR MASSEY, TEDDY Andres Ot 401.9 04/07/2014 VIKTOR MASSEY, TEDDY J Ot 414.00 04/07/2014 VIKTOR MASSEY, TEDDY Andres Ot 780.2 04/07/2014 PAIGE MCLAIN SAMPLE CHECKER Ot 202.80 04/07/2014 SHIRA DORANTES Ot 202.80 04/07/2014 SHIRA DORANTES N Ot 244.9 04/07/2014 SHIRA DORANTES N Ot 250.00 04/07/2014 SHIRA DORANTES N Ot 414.01 04/07/2014 JAYNA, BOBAN N Ot 585.3 04/07/2014 JAYNA, BOBAN N Ot V45.82 04/07/2014 JAYNA, BOBAN N Ot V58.67 04/07/2014 Ot 593.89 04/07/2014 Ot 789.00 04/07/2014 NICOLE MASSEY, CORY A Ot 593.9 04/07/2014 VIKTOR MASSEY, TEDDY Andres Ot V45.82 04/07/2014 VIKTOR MASSEY, TEDDY Andres Ot V57.89 04/07/2014 JAYNA, BOBAN N Ot 202.80 04/07/2014 JAYNA, BOBAN N Ot 244.9 04/07/2014 AJYNA, BOBAN N Ot 250.00 04/07/2014 JAYNA, BOBAN N Ot 272.4 04/07/2014 JAYNA, BOBAN N Ot 356.9 04/07/2014 JAYNA, BOBAN N Ot 403.90 04/07/2014 JAYNA, BOBAN N Ot 414.00 04/07/2014 JAYNA, BOBAN N Ot 585.3 04/07/2014 JAYNA, BOBAN N Ot 780.57 04/07/2014 JAYNA, BOBAN N Ot V45.82 04/07/2014 JAYNA, BOBAN N Ot V58.67 04/07/2014 JAYNA, BOBAN N Ot V58.69 04/07/2014 TRAVON AN SAMPLE CHECKER Ot 721.0 04/07/2014 TRAVON NA SAMPLE CHECKER Ot 721.3 04/07/2014 TRAVON AN SAMPLE CHECKER Ot E000.8 04/07/2014 TRAVON AN SAMPLE CHECKER Ot E819.9 04/07/2014 TRAVON AN SAMPLE CHECKER Ot 250.00 04/07/2014 TRAVON AN SAMPLE CHECKER Ot 787.01 04/11/2014 VIKTOR MASSEY, TEDDY Andres Ot 401.9 04/11/2014 VIKTOR MASSEY, TEDDY Andres Ot 414.00 04/11/2014 TEDDY HOANG MD Ot 780.2 04/13/2014 Ot 202.80 04/13/2014 Ot 250.00 04/13/2014 Ot 401.9 04/13/2014 Ot 780.79 04/13/2014 Ot 784.0 04/13/2014 Ot 787.02 05/03/2014 VIKTOR MASSEY, TEDDY Andres Ot V45.82 PERCUTANEOUS TRANSLUM CORON ANGIOPLASTY 05/03/2014 VIKTOR MASSEY, TEDDY Andres Ot V57.89 REHABILITATION PROC NEC 05/12/2014 JAYNAMARY CONRADAN N Ot 202.80 05/17/2014 Ot 202.88 05/17/2014 Ot 244.9 05/17/2014 Ot 250.00 05/17/2014 Ot 414.00 05/17/2014 Ot 784.0 05/17/2014 Ot V45.82 05/17/2014 Ot V58.67 05/17/2014 Ot V58.69 05/17/2014 JAYNA, BOBAN N Ot 202.80 05/17/2014 NICOLE MASSEY, CORY Arvizu Ot 593.9 05/17/2014 JAYNA, BOBAN N Ot 202.80 05/17/2014 JAYNA, BOBAN N Ot 244.9 05/17/2014 JAYNA, BOBAN N Ot 250.00 05/17/2014 JAYNA, BOBAN N Ot 272.4 05/17/2014 JAYNA, BOBAN N Ot 356.9 05/17/2014 JAYNA, BOBAN N Ot 403.90 05/17/2014 JAYNA, BOBAN N Ot 414.00 05/17/2014 JAYNA, BOBAN N Ot 585.3 05/17/2014 JAYNA, BOBAN N Ot 780.57 05/17/2014 JAYNA, BOBAN N Ot V45.82 05/17/2014 JAYNA, BOBAN N Ot V58.67 05/17/2014 JAYNA, BOBAN N Ot V58.69 05/17/2014 TRAVON AN SAMPLE CHECKER Ot 721.0 05/17/2014 TRAVON AN SAMPLE CHECKER Ot 721.3 05/17/2014 TRAVON AN SAMPLE CHECKER Ot E000.8 05/17/2014 TRAVON AN SAMPLE CHECKER Ot E819.9 05/17/2014 TRAVON AN SAMPLE CHECKER Ot 250.00 05/17/2014 TRAVON AN SAMPLE CHECKER Ot 787.01 05/17/2014 Ot 202.80 05/17/2014 Ot 250.00 05/17/2014 Ot 401.9 05/17/2014 Ot 780.79 05/17/2014 Ot 784.0 05/17/2014 Ot 787.02 05/17/2014 Ot V45.82 05/17/2014 Ot V57.89 05/17/2014 Ot 202.88 05/17/2014 Ot 244.9 05/17/2014 Ot 250.00 05/17/2014 Ot 414.00 05/17/2014 Ot 784.0 05/17/2014 Ot V45.82 05/17/2014 Ot V58.67 05/17/2014 Ot V58.69 05/20/2014 Ot 202.88 05/20/2014 Ot 244.9 05/20/2014 Ot 250.00 05/20/2014 Ot 414.00 05/20/2014 Ot 784.0 05/20/2014 Ot V45.82 05/20/2014 Ot V58.67 05/20/2014 Ot V58.69 06/18/2014 Ot 241.0 06/18/2014 Ot 784.2 06/18/2014 Ot 785.6 06/18/2014 Ot 785.6 06/18/2014 Ot 784.2 06/18/2014 Ot V72.84 06/18/2014 Ot V74.8 06/18/2014 Ot 202.80 06/18/2014 Ot 202.80 06/18/2014 Ot V72.84 06/18/2014 Ot 202.80 06/18/2014 Ot 250.00 06/18/2014 Ot 202.88 06/18/2014 Ot 250.02 06/18/2014 Ot 272.4 06/18/2014 Ot 401.9 06/18/2014 Ot 202.80 06/18/2014 Ot 786.05 06/18/2014 Ot 202.80 06/18/2014 Ot 202.80 06/18/2014 Ot 250.01 06/18/2014 Ot 202.81 06/18/2014 Ot 244.9 06/18/2014 Ot 250.00 06/18/2014 Ot 272.4 06/18/2014 Ot 414.00 06/18/2014 Ot 585.3 06/18/2014 Ot V15.3 06/18/2014 Ot V45.82 06/18/2014 Ot V58.67 06/18/2014 Ot V58.69 06/18/2014 Ot V87.41 06/18/2014 Ot 202.80 06/18/2014 SHIRA DORANTES N Ot 202.80 06/18/2014 Ot 397.0 06/18/2014 Ot 401.9 06/18/2014 Ot 414.00 06/18/2014 Ot 424.0 06/18/2014 Ot 786.09 06/18/2014 Ot 401.9 06/18/2014 Ot 414.00 06/18/2014 Ot 786.09 06/18/2014 Ot 244.9 06/18/2014 Ot 250.03 06/18/2014 Ot 401.9 06/18/2014 Ot 272.4 06/18/2014 Ot 401.9 06/18/2014 Ot 414.00 06/18/2014 YUMIKO MASSEY, SEBASTIAN Arvizu Ot 433.10 06/18/2014 YUMIKO MASSEY, SEBASTIAN Arvizu Ot 780.2 06/18/2014 YUMIKO MASSEY, SEBASTIAN A Ot 959.01 06/18/2014 YUMIKO MASSEY, SEBASTIAN A Ot E000.8 06/18/2014 YUMIKO MASSEY, SEBASTIAN Arvizu Ot E849.7 06/18/2014 YUMIKO MASSEY, SEBASTIAN Arvizu Ot E888.9 06/18/2014 SHIRA DORANTES Ot 202.80 06/18/2014 BALTAZAR MASSEY, LIZETTE Caputo Ot 433.10 06/18/2014 PAIGE MCLAIN SAMPLE CHECKER Ot 202.80 06/18/2014 MCLAINPAIGE Matthews S SAMPLE CHECKER Ot 244.9 06/18/2014 PAIGE MCLAIN S SAMPLE CHECKER Ot 585.3 06/18/2014 PAIGE MCLAIN S SAMPLE CHECKER Ot 780.4 06/18/2014 MCLAINPAIGE Matthews S SAMPLE CHECKER Ot 783.21 06/18/2014 MCLAINPAIGE S SAMPLE CHECKER Ot V15.3 06/18/2014 MCLAINPAIGE S SAMPLE CHECKER Ot V87.41 06/18/2014 PAIGE MCLAIN S SAMPLE CHECKER Ot 202.80 06/18/2014 YUMIKO MASSEY, SEBASTIAN A Ot 272.4 06/18/2014 YUMIKO MASSEY, SEBASTIAN A Ot 401.9 06/18/2014 YUMIKO MASSEY, SEBASTIAN Arvizu Ot V58.69 06/18/2014 TRAVON AN SAMPLE CHECKER Ot 719.45 06/18/2014 TRAVON AN SAMPLE CHECKER Ot 786.50 06/18/2014 TRAVON AN SAMPLE CHECKER Ot E000.8 06/18/2014 TRAVON AN SAMPLE CHECKER Ot E849.6 06/18/2014 TRAVON AN SAMPLE CHECKER Ot E888.9 06/18/2014 PAIGE MCLAIN S SAMPLE CHECKER Ot 202.80 06/18/2014 MCLAINPAIGE S SAMPLE CHECKER Ot 244.9 06/18/2014 MCLAIN HILAH S SAMPLE CHECKER Ot 250.00 06/18/2014 MCLAIN, HILAH S SAMPLE CHECKER Ot 272.4 06/18/2014 MCLAIN, HILAH S SAMPLE CHECKER Ot 356.9 06/18/2014 MCLAIN, HILAH S SAMPLE CHECKER Ot 403.90 06/18/2014 MCLAIN, HILAH S SAMPLE CHECKER Ot 414.00 06/18/2014 MCLAIN, HILAH S SAMPLE CHECKER Ot 585.3 06/18/2014 MCLAIN HILAH S SAMPLE CHECKER Ot 780.57 06/18/2014 MCLAIN HILAH S SAMPLE CHECKER Ot V15.3 06/18/2014 MCLAIN HILBRODIE S SAMPLE CHECKER Ot V45.82 06/18/2014 MCLAINPAIGE S SAMPLE CHECKER Ot V58.67 06/18/2014 MCLAIN, HILAH S SAMPLE CHECKER Ot V58.69 06/18/2014 MCLAIN, HILAH S SAMPLE CHECKER Ot V87.41 06/18/2014 MCLAIN, HILAH S SAMPLE CHECKER Ot 202.80 06/18/2014 JAYNAMARYJALEESA Blevins Ot 202.80 06/18/2014 TRAVON AN SAMPLE CHECKER Ot 401.9 06/18/2014 TRAVON AN SAMPLE CHECKER Ot 518.0 06/18/2014 NICOLE MASSEY, CORY A Ot 591 06/18/2014 NICOLE MASSEY, CORY A Ot 599.70 06/18/2014 NICOLE MASSEY, CORY A Ot 600.00 06/18/2014 NICOLE MASSEY, CORY A Ot 257.2 06/18/2014 NICOLE MASSEY, CORY A Ot 599.70 06/18/2014 NICOLE MASSEY, CORY A Ot 600.00 06/18/2014 TRAVON AN SAMPLE CHECKER Ot 250.01 06/18/2014 MCLAINPAIGE S SAMPLE CHECKER Ot 202.80 06/18/2014 MCLAINPAIGE Matthews S SAMPLE CHECKER Ot 202.88 06/18/2014 MCLAINPAIGE Matthews S SAMPLE CHECKER Ot 244.9 06/18/2014 MCLAINPAIGE S SAMPLE CHECKER Ot 250.00 06/18/2014 MCLAINPAIGE S SAMPLE CHECKER Ot 414.00 06/18/2014 MCLAINPAIGE Matthews S SAMPLE CHECKER Ot 585.3 06/18/2014 MCLAINPAIGE S SAMPLE CHECKER Ot V45.82 06/18/2014 MCLAINPAIGE S SAMPLE CHECKER Ot V58.67 06/18/2014 MCLAINPAIGE S SAMPLE CHECKER Ot V58.69 06/18/2014 YUMIKO MASSEY, SEBASTIAN A Ot V58.69 06/18/2014 YUMIKO MASSEY, SEBASTIAN A Ot V58.83 06/18/2014 MCLAINPAIGE S SAMPLE CHECKER Ot 202.80 06/18/2014 MCLAINPAIGE S SAMPLE CHECKER Ot 244.9 06/18/2014 MCLAINPAIGE Matthews S SAMPLE CHECKER Ot 250.00 06/18/2014 MCLAINPAIGE S SAMPLE CHECKER Ot 272.4 06/18/2014 MCLAINPAIGE S SAMPLE CHECKER Ot 356.9 06/18/2014 MCLAINPAIGE Matthews S SAMPLE CHECKER Ot 403.90 06/18/2014 MCLAINPAIGE Matthews S SAMPLE CHECKER Ot 414.00 06/18/2014 MCLAINPAIGE Matthews S SAMPLE CHECKER Ot 585.3 06/18/2014 MCLAINPAIGE Matthews S SAMPLE CHECKER Ot 780.57 06/18/2014 MCLAINPAIGE Matthews S SAMPLE CHECKER Ot V45.82 06/18/2014 MCLAINPAIGE S SAMPLE CHECKER Ot V58.67 06/18/2014 MCLAINPAIGE S SAMPLE CHECKER Ot V58.69 06/18/2014 TRAVON AN SAMPLE CHECKER Ot 250.01 06/18/2014 TRAVON AN SAMPLE CHECKER Ot 272.4 06/18/2014 TRAVON AN SAMPLE CHECKER Ot 401.9 06/18/2014 YUMIKO MASSEY, SEBASTIAN Arvizu Ot 250.01 06/18/2014 YUMIKO MASSEY, SEBASTIAN Arvizu Ot V58.69 06/18/2014 YUMIKO MASSEY, SEBASTIAN Arvizu Ot V58.83 06/18/2014 YUMIKO MASSEY, SEBASTIAN A Ot 285.9 06/18/2014 YUMIKO MASSEY, SEBASTIAN A Ot 786.2 06/18/2014 YUMIKO MASSEY, SEBASTIAN Arvizu Ot 786.2 06/18/2014 TRAVON AN SAMPLE CHECKER Ot 285.9 06/18/2014 TRAVON AN SAMPLE CHECKER Ot 288.60 06/18/2014 YUMIKO MASSEY, SEBASTIAN A Ot 285.9 06/18/2014 YUMIKO MASSEY, SEBASTIAN Arvizu Ot 490 06/18/2014 YUMIKO MASSEY, SEBASTIAN Arvizu Ot 780.79 06/18/2014 ABRAHAM MARC DO Ot V72.84 06/18/2014 BRYNN ROBLEDO, TIESHA K Ot 250.92 06/18/2014 TIESHA LOVE K Ot 272.4 06/18/2014 BRYNN ROBLEDO, TIESHA K Ot 401.9 06/18/2014 TIESHA LOVE K Ot 414.01 06/18/2014 PAIGE MCLAIN SAMPLE CHECKER Ot 202.88 06/18/2014 PAIGE MCLAIN SAMPLE CHECKER Ot 244.9 06/18/2014 PAIGE MCLAIN S SAMPLE CHECKER Ot 250.00 06/18/2014 PAIGE MCLAIN S SAMPLE CHECKER Ot 414.00 06/18/2014 PAIGE MCLAIN S SAMPLE CHECKER Ot 585.3 06/18/2014 PAIGE MCLAIN S SAMPLE CHECKER Ot V58.67 06/18/2014 PAIGE MCLAIN S SAMPLE CHECKER Ot V58.69 06/18/2014 PAIGE MCLAIN SAMPLE CHECKER Ot 202.80 06/18/2014 VIKTOR MASSEY, TEDDY Andres Ot 272.4 06/18/2014 VIKTOR MASSEY, TEDDY J Ot 401.9 06/18/2014 VIKTOR MASSEY, TEDDY J Ot 414.00 06/18/2014 VIKTOR MASSEY, TEDDY Andres Ot 780.2 06/18/2014 VIKTOR MASSEY, TEDDY Andres Ot 401.9 06/18/2014 VIKTOR MASSEY, TEDDY J Ot 414.00 06/18/2014 VIKTOR MASSEY, TEDDY Andres Ot 780.2 06/18/2014 MCLAINPAIGE Matthews SAMPLE CHECKER Ot 202.80 06/18/2014 Ot 202.88 06/18/2014 Ot 244.9 06/18/2014 Ot 250.00 06/18/2014 Ot 414.00 06/18/2014 Ot 784.0 06/18/2014 Ot V45.82 06/18/2014 Ot V58.67 06/18/2014 Ot V58.69 06/18/2014 JAYNA, BOBAN N Ot 202.80 06/18/2014 JAYNA, BOBAN N Ot 244.9 06/18/2014 JAYNA, BOBAN N Ot 250.00 06/18/2014 JAYNA, BOBAN N Ot 414.01 06/18/2014 JAYNA, BOBAN N Ot 585.3 06/18/2014 JAYNA, BOBAN N Ot V45.82 06/18/2014 JAYNA, BOBAN N Ot V58.67 06/18/2014 Ot 593.89 06/18/2014 Ot 789.00 06/18/2014 JAYNA, BOBAN N Ot 202.80 06/18/2014 CORY RIVERA MD Ot 593.9 06/18/2014 JAYNA, BOBAN N Ot 202.80 06/18/2014 JAYNA, BOBAN N Ot 244.9 06/18/2014 JAYNA, BOBAN N Ot 250.00 06/18/2014 JAYNA, BOBAN N Ot 272.4 06/18/2014 JAYNA, BOBAN N Ot 356.9 06/18/2014 JAYNA, BOBAN N Ot 403.90 06/18/2014 JAYNA, BOBAN N Ot 414.00 06/18/2014 JAYNA, BOBAN N Ot 585.3 06/18/2014 JAYNA, BOBAN N Ot 780.57 06/18/2014 JAYNA, BOBAN N Ot V45.82 06/18/2014 JAYNA, BOBAN N Ot V58.67 06/18/2014 JAYNA, BOBAN N Ot V58.69 06/18/2014 TRAVON AN SAMPLE CHECKER Ot 721.0 06/18/2014 TRAVON AN SAMPLE CHECKER Ot 721.3 06/18/2014 TRAVON AN SAMPLE CHECKER Ot E000.8 06/18/2014 TRAVON AN SAMPLE CHECKER Ot E819.9 06/18/2014 TRAVON AN SAMPLE CHECKER Ot 250.00 06/18/2014 TRAVON AN SAMPLE CHECKER Ot 787.01 06/18/2014 Ot 202.80 06/18/2014 Ot 250.00 06/18/2014 Ot 401.9 06/18/2014 Ot 780.79 06/18/2014 Ot 784.0 06/18/2014 Ot 787.02 06/18/2014 Ot V45.82 06/18/2014 Ot V57.89 06/22/2014 GELLENDER DO, JADE Arvizu Ot 038.9 06/22/2014 GELLENDER DO, JADE Arvizu Ot 202.80 06/22/2014 GELLENDER DO, JADE Arvizu Ot 250.00 06/22/2014 GELLENDER DO, JADE Arvizu Ot 272.4 06/22/2014 GELLENDER DO, JADE Arvizu Ot 285.9 06/22/2014 GELLENDER DO, JADE Arvizu Ot 300.00 06/22/2014 GELLENDER DO, JADE Arvizu Ot 311 06/22/2014 GELLENDER DO, JADE Arvizu Ot 403.90 06/22/2014 GELLENDER DO, JADE Arvizu Ot 414.01 06/22/2014 GELLENDER DO, JADE Arvizu Ot 433.10 06/22/2014 GELLENDER DO, JADE Arvizu Ot 433.30 06/22/2014 GELLENDER DO, JADE Arvizu Ot 486 06/22/2014 GELLENDER DO, JADE Arvizu Ot 530.0 06/22/2014 GELLENDER DO, JADE A Ot 530.11 06/22/2014 GELLENDER DO, JADE Arvizu Ot 530.3 06/22/2014 GELLENDER DO, JADE Arvizu Ot 530.5 06/22/2014 GELLENDER DO, JADE Arvizu Ot 584.9 06/22/2014 GELLENDER DO, JADE A Ot 585.9 06/22/2014 GELLENDER DO, JADE Arvizu Ot 799.02 06/22/2014 GELLENDER DO, JADE Arvizu Ot 995.91 06/22/2014 GELLENDER DO, JADE A Ot V10.87 06/22/2014 GELLENDER DO, JADE A Ot V15.3 06/22/2014 GELLENDER DO, JADE A Ot V15.81 06/22/2014 GELLENDER DO, JADE Arvizu Ot V45.82 06/22/2014 GELLENDER DO, JADE Arvizu Ot V58.63 06/22/2014 GELLENDER DO, JADE A Ot V58.66 06/22/2014 GELLENDER DO, JADE A Ot V58.67 06/22/2014 GELLENDER DO, JADE A Ot V87.41 06/22/2014 GELLENDER DO, JADE A Ot 038.9 06/22/2014 GELLENDER DO, JADE A Ot 202.80 06/22/2014 GELLENDER DO, JADE A Ot 250.00 06/22/2014 GELLENDER DO, JADE A Ot 272.4 06/22/2014 GELLENDER DO, JADE A Ot 285.9 06/22/2014 GELLENDER DO, JADE A Ot 300.00 06/22/2014 GELLENDER DO, JADE A Ot 311 06/22/2014 GELLENDER DO, JADE A Ot 403.90 06/22/2014 GELLENDER DO, JADE A Ot 414.01 06/22/2014 GELLENDER DO, JADE A Ot 433.10 06/22/2014 GELLENDER DO, JADE A Ot 433.30 06/22/2014 GELLENDER DO, JADE A Ot 486 06/22/2014 GELLENDER DO, JADE A Ot 530.0 06/22/2014 GELLENDER DO, JADE A Ot 530.11 06/22/2014 GELLENDER DO, JADE A Ot 530.3 06/22/2014 GELLENDER DO, JADE A Ot 530.5 06/22/2014 GELLENDER DO, JADE A Ot 584.9 06/22/2014 GELLENDER DO, JADE A Ot 585.9 06/22/2014 GELLENDER DO, JADE A Ot 799.02 06/22/2014 GELLENDER DO, JADE A Ot 995.91 06/22/2014 GELLENDER DO, JADE A Ot V10.87 06/22/2014 GELLENDER DO, JADE A Ot V15.3 06/22/2014 GELLENDER DO, JADE A Ot V15.81 06/22/2014 GELLENDER DO, JADE A Ot V45.82 06/22/2014 GELLENDER DO, JADE A Ot V58.63 06/22/2014 GELLENDER DO, JADE A Ot V58.66 06/22/2014 GELLENDER DO, JADE A Ot V58.67 06/22/2014 GELLENDER DO, JADE A Ot V87.41 06/22/2014 GELLENDER DO, JADE A Ot 038.9 06/22/2014 GELLENDER DO, JADE A Ot 202.80 06/22/2014 GELLENDER DO, JADE A Ot 250.00 06/22/2014 GELLENDER DO, JADE A Ot 272.4 06/22/2014 GELLENDER DO, JADE A Ot 285.9 06/22/2014 GELLENDER DO, JADE A Ot 300.00 06/22/2014 GELLENDER DO, JADE A Ot 311 06/22/2014 GELLENDER DO, JADE A Ot 403.90 06/22/2014 GELLENDER DO, JADE A Ot 414.01 06/22/2014 GELLENDER DO, JADE A Ot 433.10 06/22/2014 GELLENDER DO, JADE A Ot 433.30 06/22/2014 GELLENDER DO, JADE A Ot 486 06/22/2014 GELLENDER DO, JADE A Ot 530.0 06/22/2014 GELLENDER DO, JADE A Ot 530.11 06/22/2014 GELLENDER DO, JADE A Ot 530.3 06/22/2014 GELLENDER DO, JADE A Ot 530.5 06/22/2014 GELLENDER DO, JADE A Ot 584.9 06/22/2014 GELLENDER DO, JADE A Ot 585.9 06/22/2014 GELLENDER DO, JADE A Ot 799.02 06/22/2014 GELLENDER DO, JADE A Ot 995.91 06/22/2014 GELLENDER DO, JADE A Ot V10.87 06/22/2014 GELLENDER DO, JADE A Ot V15.3 06/22/2014 GELLENDER DO, JADE A Ot V15.81 06/22/2014 GELLENDER DO, JADE A Ot V45.82 06/22/2014 GELLENDER DO, JADE A Ot V58.63 06/22/2014 GELLENDER DO, JADE A Ot V58.66 06/22/2014 GELLENDER DO, JADE A Ot V58.67 06/22/2014 GELLENDER DO, JADE A Ot V87.41 06/23/2014 GELLENDER DO, JADE A Ot 038.9 06/23/2014 GELLENDER DO, JADE A Ot 202.80 06/23/2014 GELLENDER DO, JADE A Ot 250.00 06/23/2014 GELLENDER DO, JADE A Ot 272.4 06/23/2014 GELLENDER DO, JADE A Ot 285.9 06/23/2014 GELLENDER DO, JADE A Ot 300.00 06/23/2014 GELLENDER DO, JADE A Ot 311 06/23/2014 GELLENDER DO, JADE A Ot 403.90 06/23/2014 GELLENDER DO, JADE A Ot 414.01 06/23/2014 GELLENDER DO, JADE A Ot 433.10 06/23/2014 GELLENDER DO, JADE A Ot 433.30 06/23/2014 GELLENDER DO, JADE A Ot 486 06/23/2014 GELLENDER DO, JADE A Ot 530.0 06/23/2014 GELLENDER DO, JADE A Ot 530.11 06/23/2014 GELLENDER DO, JADE A Ot 530.3 06/23/2014 GELLENDER DO, JADE A Ot 530.5 06/23/2014 GELLENDER DO, JADE A Ot 584.9 06/23/2014 GELLENDER DO, JADE A Ot 585.9 06/23/2014 GELLENDER DO, JADE A Ot 799.02 06/23/2014 GELLENDER DO, JADE A Ot 995.91 06/23/2014 GELLENDER DO, JADE A Ot V10.87 06/23/2014 GELLENDER DO, JADE A Ot V15.3 06/23/2014 GELLENDER DO, JADE A Ot V15.81 06/23/2014 GELLENDER DO, JDAE A Ot V45.82 06/23/2014 GELLENDER DO, JADE A Ot V58.63 06/23/2014 GELLENDER DO, JADE A Ot V58.66 06/23/2014 GELLENDER DO, JADE A Ot V58.67 06/23/2014 GELLENDER DO, JADE A Ot V87.41 06/23/2014 GELLENDER DO, JADE A Ot 038.9 06/23/2014 GELLENDER DO, JADE A Ot 202.80 06/23/2014 GELLENDER DO, JADE A Ot 250.00 06/23/2014 GELLENDER DO, JADE A Ot 272.4 06/23/2014 GELLENDER DO, JADE A Ot 285.9 06/23/2014 GELLENDER DO, JADE A Ot 300.00 06/23/2014 GELLENDER DO, JADE A Ot 311 06/23/2014 GELLENDER DO, JADE A Ot 403.90 06/23/2014 GELLENDER DO, JADE A Ot 414.01 06/23/2014 GELLENDER DO, JADE A Ot 433.10 06/23/2014 GELLENDER DO, JADE A Ot 433.30 06/23/2014 GELLENDER DO, JADE A Ot 486 06/23/2014 GELLENDER DO, JADE A Ot 530.0 06/23/2014 GELLENDER DO, JADE A Ot 530.11 06/23/2014 GELLENDER DO, JADE A Ot 530.3 06/23/2014 GELLENDER DO, JADE A Ot 530.5 06/23/2014 GELLENDER DO, JADE A Ot 584.9 06/23/2014 GELLENDER DO, JADE A Ot 585.9 06/23/2014 GELLENDER DO, JADE A Ot 799.02 06/23/2014 GELLENDER DO, JADE A Ot 995.91 06/23/2014 GELLENDER DO, JADE A Ot V10.87 06/23/2014 GELLENDER DO, JADE A Ot V15.3 06/23/2014 GELLENDER DO, JADE A Ot V15.81 06/23/2014 GELLENDER DO, JADE A Ot V45.82 06/23/2014 GELLENDER DO, JADE A Ot V58.63 06/23/2014 GELLENDER DO, JADE A Ot V58.66 06/23/2014 GELLENDER DO, JADE A Ot V58.67 06/23/2014 GELLENDER DO, JADE A Ot V87.41 06/24/2014 GELLENDER DO, JADE A Ot 038.9 06/24/2014 GELLENDER DO, JADE A Ot 202.80 06/24/2014 GELLENDER DO, JADE A Ot 250.00 06/24/2014 GELLENDER DO, JADE A Ot 272.4 06/24/2014 GELLENDER DO, JADE A Ot 285.9 06/24/2014 GELLENDER DO, JADE A Ot 300.00 06/24/2014 GELLENDER DO, JADE A Ot 311 06/24/2014 GELLENDER DO, JADE A Ot 403.90 06/24/2014 GELLENDER DO, JADE A Ot 414.01 06/24/2014 GELLENDER DO, JADE A Ot 433.10 06/24/2014 GELLENDER DO, JADE A Ot 433.30 06/24/2014 GELLENDER DO, JADE A Ot 486 06/24/2014 GELLENDER DO, JADE A Ot 530.0 06/24/2014 GELLENDER DO, JADE A Ot 530.11 06/24/2014 GELLENDER DO, JADE A Ot 530.3 06/24/2014 GELLENDER DO, JADE A Ot 530.5 06/24/2014 GELLENDER DO, JADE A Ot 584.9 06/24/2014 GELLENDER DO, JADE A Ot 585.9 06/24/2014 GELLENDER DO, JADE A Ot 799.02 06/24/2014 GELLENDER DO, JADE A Ot 995.91 06/24/2014 GELLENDER DO, JADE A Ot V10.87 06/24/2014 GELLENDER DO, JADE A Ot V15.3 06/24/2014 GELLENDER DO, JADE A Ot V15.81 06/24/2014 GELLENDER DO, JADE A Ot V45.82 06/24/2014 GELLENDER DO, JADE A Ot V58.63 06/24/2014 GELLENDER DO, JADE A Ot V58.66 06/24/2014 GELLENDER DO, JADE A Ot V58.67 06/24/2014 GELLENDER DO, JADE A Ot V87.41 06/25/2014 GELLENDER DO, JADE A Ot 038.9 06/25/2014 GELLENDER DO, JADE A Ot 202.80 06/25/2014 GELLENDER DO, JADE A Ot 250.00 06/25/2014 GELLENDER DO, JADE A Ot 272.4 06/25/2014 GELLENDER DO, JADE A Ot 285.9 06/25/2014 GELLENDER DO, JADE A Ot 300.00 06/25/2014 GELLENDER DO, JADE A Ot 311 06/25/2014 GELLENDER DO, JADE A Ot 403.90 06/25/2014 GELLENDER DO, JADE A Ot 414.01 06/25/2014 GELLENDER DO, JADE A Ot 433.10 06/25/2014 GELLENDER DO, JADE A Ot 433.30 06/25/2014 GELLENDER DO, JADE A Ot 486 06/25/2014 GELLENDER DO, JADE A Ot 530.0 06/25/2014 GELLENDER DO, JADE A Ot 530.11 06/25/2014 GELLENDER DO, JADE A Ot 530.3 06/25/2014 GELLENDER DO, JADE A Ot 530.5 06/25/2014 GELLENDER DO, JADE A Ot 584.9 06/25/2014 GELLENDER DO, JADE A Ot 585.9 06/25/2014 GELLENDER DO, JADE A Ot 799.02 06/25/2014 GELLENDER DO, JADE A Ot 995.91 06/25/2014 GELLENDER DO, JADE A Ot V10.87 06/25/2014 GELLENDER DO, JADE A Ot V15.3 06/25/2014 GELLENDER DO, JADE A Ot V15.81 06/25/2014 GELLENDER DO, JADE A Ot V45.82 06/25/2014 GELLENDER DO, JADE A Ot V58.63 06/25/2014 GELLENDER DO, JADE A Ot V58.66 06/25/2014 GELLENDER DO, JADE A Ot V58.67 06/25/2014 GELLENDER DO, JADE A Ot V87.41 06/26/2014 GELLENDER DO, JADE A Ot 038.9 06/26/2014 GELLENDER DO, JADE A Ot 202.80 06/26/2014 GELLENDER DO, JADE A Ot 250.00 06/26/2014 GELLENDER DO, JADE A Ot 272.4 06/26/2014 GELLENDER DO, JADE A Ot 285.9 06/26/2014 GELLENDER DO, JADE A Ot 300.00 06/26/2014 GELLENDER DO, JADE A Ot 311 06/26/2014 GELLENDER DO, JADE A Ot 403.90 06/26/2014 GELLENDER DO, JADE A Ot 414.01 06/26/2014 GELLENDER DO, JADE A Ot 433.10 06/26/2014 GELLENDER DO, JADE A Ot 433.30 06/26/2014 GELLENDER DO, JADE A Ot 486 06/26/2014 GELLENDER DO, JADE A Ot 530.0 06/26/2014 GELLENDER DO, JADE A Ot 530.11 06/26/2014 GELLENDER DO, JADE A Ot 530.3 06/26/2014 GELLENDER DO, JADE A Ot 530.5 06/26/2014 GELLENDER DO, JADE A Ot 584.9 06/26/2014 GELLENDER DO, JADE A Ot 585.9 06/26/2014 GELLENDER DO, JADE A Ot 799.02 06/26/2014 GELLENDER DO, JADE A Ot 995.91 06/26/2014 GELLENDER DO, JADE A Ot V10.87 06/26/2014 GELLENDER DO, JADE A Ot V15.3 06/26/2014 GELLENDER DO, JADE A Ot V15.81 06/26/2014 GELLENDER DO, JADE A Ot V45.82 06/26/2014 GELLENDER DO, JADE A Ot V58.63 06/26/2014 GELLENDER DO, JADE A Ot V58.66 06/26/2014 GELLENDER DO, JADE A Ot V58.67 06/26/2014 GELLENDER DO, JADE A Ot V87.41 06/27/2014 GELLENDER DO, JADE A Ot 038.9 06/27/2014 GELLENDER DO, JADE A Ot 202.80 06/27/2014 GELLENDER DO, JADE A Ot 250.00 06/27/2014 GELLENDER DO, JADE A Ot 272.4 06/27/2014 GELLENDER DO, JADE A Ot 285.9 06/27/2014 GELLENDER DO, JADE A Ot 300.00 06/27/2014 GELLENDER DO, JADE A Ot 311 06/27/2014 GELLENDER DO, JADE A Ot 403.90 06/27/2014 GELLENDER DO, JADE A Ot 414.01 06/27/2014 GELLENDER DO, JADE A Ot 433.10 06/27/2014 GELLENDER DO, JADE A Ot 433.30 06/27/2014 GELLENDER DO, JADE A Ot 486 06/27/2014 GELLENDER DO, JADE A Ot 530.0 06/27/2014 GELLENDER DO, JADE A Ot 530.11 06/27/2014 GELLENDER DO, JADE A Ot 530.3 06/27/2014 GELLENDER DO, JADE A Ot 530.5 06/27/2014 GELLENDER DO, JADE A Ot 584.9 06/27/2014 GELLENDER DO, JADE A Ot 585.9 06/27/2014 GELLENDER DO, JADE A Ot 799.02 06/27/2014 GELLENDER DO, JADE A Ot 995.91 06/27/2014 GELLENDER DO, JADE A Ot V10.87 06/27/2014 GELLENDER DO, JADE A Ot V15.3 06/27/2014 GELLENDER DO, JADE A Ot V15.81 06/27/2014 GELLENDER DO, JADE A Ot V45.82 06/27/2014 GELLENDER DO, JADE A Ot V58.63 06/27/2014 GELLENDER DO, JADE A Ot V58.66 06/27/2014 GELLENDER DO, JADE A Ot V58.67 06/27/2014 GELLENDER DO, JADE A Ot V87.41 06/28/2014 GELLENDER DO, JADE A Ot 038.9 06/28/2014 GELLENDER DO, JADE A Ot 202.80 06/28/2014 GELLENDER DO, JADE A Ot 250.00 06/28/2014 GELLENDER DO, JADE A Ot 272.4 06/28/2014 GELLENDER DO, JADE A Ot 285.9 06/28/2014 GELLENDER DO, JADE A Ot 300.00 06/28/2014 GELLENDER DO, JADE A Ot 311 06/28/2014 GELLENDER DO, JADE A Ot 403.90 06/28/2014 GELLENDER DO, JADE A Ot 414.01 06/28/2014 GELLENDER DO, JADE A Ot 433.10 06/28/2014 GELLENDER DO, JADE A Ot 433.30 06/28/2014 GELLENDER DO, JADE A Ot 486 06/28/2014 GELLENDER DO, JADE A Ot 530.0 06/28/2014 GELLENDER DO, JADE A Ot 530.11 06/28/2014 GELLENDER DO, JADE A Ot 530.3 06/28/2014 GELLENDER DO, JADE A Ot 530.5 06/28/2014 GELLENDER DO, JADE A Ot 584.9 06/28/2014 GELLENDER DO, JADE A Ot 585.9 06/28/2014 GELLENDER DO, JADE A Ot 799.02 06/28/2014 GELLENDER DO, JADE A Ot 995.91 06/28/2014 GELLENDER DO, JADE A Ot V10.87 06/28/2014 GELLENDER DO, JADE A Ot V15.3 06/28/2014 GELLENDER DO, JADE A Ot V15.81 06/28/2014 GELLENDER DO, JADE A Ot V45.82 06/28/2014 GELLENDER DO, JADE A Ot V58.63 06/28/2014 GELLENDER DO, JADE A Ot V58.66 06/28/2014 GELLENDER DO, JADE A Ot V58.67 06/28/2014 GELLENDER DO, JADE A Ot V87.41 06/29/2014 GELLENDER DO, JADE A Ot 038.9 06/29/2014 GELLENDER DO, JADE A Ot 202.80 06/29/2014 GELLENDER DO, JADE A Ot 250.00 06/29/2014 GELLENDER DO, JADE A Ot 272.4 06/29/2014 GELLENDER DO, JADE A Ot 285.9 06/29/2014 GELLENDER DO, JADE A Ot 300.00 06/29/2014 GELLENDER DO, JADE A Ot 311 06/29/2014 GELLENDER DO, JADE A Ot 403.90 06/29/2014 GELLENDER DO, JADE A Ot 414.01 06/29/2014 GELLENDER DO, JADE A Ot 433.10 06/29/2014 GELLENDER DO, JADE A Ot 433.30 06/29/2014 GELLENDER DO, JADE A Ot 486 06/29/2014 GELLENDER DO, JADE A Ot 530.0 06/29/2014 GELLENDER DO, JADE A Ot 530.11 06/29/2014 GELLENDER DO, JADE A Ot 530.3 06/29/2014 GELLENDER DO, JADE A Ot 530.5 06/29/2014 GELLENDER DO, JADE A Ot 584.9 06/29/2014 GELLENDER DO, JADE A Ot 585.9 06/29/2014 GELLENDER DO, JADE A Ot 799.02 06/29/2014 GELLENDER DO, JADE A Ot 995.91 06/29/2014 GELLENDER DO, JADE A Ot V10.87 06/29/2014 GELLENDER DO, JADE A Ot V15.3 06/29/2014 GELLENDER DO, JADE A Ot V15.81 06/29/2014 GELLENDER DOJADE Ot V45.82 06/29/2014 GELLENDER DOJADE Ot V58.63 06/29/2014 GELLENDER DO, JADE Arvizu Ot V58.66 06/29/2014 GELLENDER DOJADE Ot V58.67 06/29/2014 GELLENDER DOJADE Ot V87.41 06/29/2014 GELLENDER DOJADE Ot 038.9 SEPTICEMIA NOS 06/29/2014 GELLENDER DO, JADE Arvizu Ot 202.80 OTH LYMPHOMAS EXTRANODAL SOLID ORGAN U 06/29/2014 GELLENDER DOJADE Ot 250.00 DIAB CÉSAR WO COMPL, TYPE II OR UNSPEC TY 06/29/2014 GELLENDER DOJADE Ot 272.4 HYPERLIPIDEMIA NEC/NOS 06/29/2014 GELLENDER DOJADE Ot 285.9 ANEMIA NOS 06/29/2014 GELLENDER DOJADE Ot 300.00 ANXIETY STATE NOS 06/29/2014 GELLENDER DOJADE Ot 311 DEPRESSIVE DISORDER NEC 06/29/2014 GELLENDER DOJADE Ot 403.90 HYPTNSV CHR KID DIS, UNSPEC, W CHR KD ST 06/29/2014 GELLENDER DOJADE Ot 414.01 CORONARY ATHEROSCLEROSIS OF [place] CORON 06/29/2014 GELLENDER DOJADE Ot 433.10 CAROTID ARTERY OCCLUSION W O CEREBRAL IN 06/29/2014 GELLENDER JADE Ot 433.30 MULT BILTRAL ARTERY OCCLUSION WO CEREBRA 06/29/2014 ARSALANLENDER JADE LU Ot 486 PNEUMONIA, ORGANISM NOS 06/29/2014 GELLENDER DOJADE Ot 518.84 ACUTE AND CHRONIC RESPIRATORY FAILURE 06/29/2014 GELLENDER DOJADE Ot 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 06/29/2014 GELLENDER DOJADE Ot 530.11 REFLUX ESOPHAGITIS 06/29/2014 GELLENDER DOJADE Ot 530.3 ESOPHAGEAL STRICTURE 06/29/2014 GELLENDER DOJADE Ot 530.5 DYSKINESIA OF ESOPHAGUS 06/29/2014 GELLENDER DOJADE Ot 584.9 ACUTE RENAL FAILURE, UNSPECIFIED 06/29/2014 GELLENDER DOJADE Ot 585.9 CHRONIC KIDNEY DISEASE, UNSPECIFIED 06/29/2014 GELLENDER DO, JADE Arvizu Ot 786.30 HEMOPTYSIS, UNSPECIFIED 06/29/2014 GELLENDER DO, JADE Arvizu Ot 799.02 06/29/2014 GELLENDER DO, JADE Arvizu Ot 995.91 SEPSIS 06/29/2014 GELLENDER DO, JADE Arvizu Ot V10.87 HX OF THYROID MALIGNANCY 06/29/2014 GELLENDER DO, JADE Arvizu Ot V15.3 HX OF IRRADIATION 06/29/2014 GELLENDER DO, JADE Arvizu Ot V15.81 HX OF PAST NONCOMPLIANCE 06/29/2014 GELLENDER DO, JADE Arvizu Ot V45.82 PERCUTANEOUS TRANSLUM CORON ANGIOPLASTY 06/29/2014 GELLENDER DO, JADE Arvizu Ot V58.63 LONG-TERM(CURRENT)USE OF ANTIPLATELET/AN 06/29/2014 GELLENDER DO, JADE Arvizu Ot V58.66 LONG-TERM (CURRENT) USE OF ASPIRIN 06/29/2014 GELLENDER DO, JADE Arvizu Ot V58.67 LONG-TERM (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 06/29/2014 GELLENDER DO, JADE Arvizu Ot V87.41 PERSONAL HISTORY OF ANTINEOPLASTIC CHEMO 06/29/2014 Ot 202.88 06/29/2014 Ot 244.9 06/29/2014 Ot 250.00 06/29/2014 Ot 414.00 06/29/2014 Ot 784.0 06/29/2014 Ot V45.82 06/29/2014 Ot V58.67 06/29/2014 Ot V58.69 06/29/2014 SHIRA DORANTES Ot 202.80 06/29/2014 CORY RIVERA MD Ot 593.9 06/29/2014 SHIRA DORANTES N Ot 202.80 06/29/2014 JAYNASHIRA CONRAD N Ot 244.9 06/29/2014 JAYNASHIRA N Ot 250.00 06/29/2014 JAYNASHIRA CONRAD N Ot 272.4 06/29/2014 JAYNASHIRA CONRAD N Ot 356.9 06/29/2014 JAYNASHIRA CONRAD N Ot 403.90 06/29/2014 JAYNASHIRA CONRAD N Ot 414.00 06/29/2014 SHIRA DORANTES Ot 585.3 06/29/2014 SHIRA DORANTES N Ot 780.57 06/29/2014 SHIRA DORANTES N Ot V45.82 06/29/2014 SHIRA DORANTES N Ot V58.67 06/29/2014 SHIRA DORANTES N Ot V58.69 06/29/2014 TRAVON AN SAMPLE CHECKER Ot 721.0 06/29/2014 TRAVON AN SAMPLE CHECKER Ot 721.3 06/29/2014 TRAVON AN SAMPLE CHECKER Ot E000.8 06/29/2014 TRAVON AN SAMPLE CHECKER Ot E819.9 06/29/2014 TRAVON AN SAMPLE CHECKER Ot 250.00 06/29/2014 TRAVON AN SAMPLE CHECKER Ot 787.01 06/29/2014 Ot 202.80 06/29/2014 Ot 250.00 06/29/2014 Ot 401.9 06/29/2014 Ot 780.79 06/29/2014 Ot 784.0 06/29/2014 Ot 787.02 06/29/2014 Ot V45.82 06/29/2014 Ot V57.89 07/01/2014 YUMIKO MASSEY, SEBASTIAN Arvizu Ot 202.80 07/01/2014 YUMIKO MASSEY, SEBASTIAN Arvizu Ot 245.2 07/01/2014 YUMIKO MASSEY, SEBASTIAN Arvizu Ot 250.00 07/01/2014 YUMIKO MASSEY, SEBASTIAN Arvizu Ot 285.9 07/01/2014 YUMIKO MASSEY, SEBASTIAN Arvizu Ot 401.9 07/01/2014 YUMIKO MASSEY, SEBASTIAN Arvizu Ot 414.01 07/01/2014 YUMIKO MASSEY, SEBASTIAN Arvizu Ot 486 07/01/2014 YUMIKO MASSEY, SEBASTIAN Arvizu Ot 530.81 07/01/2014 YUMIKO MASSEY, SEBASTIAN Arvizu Ot V58.61 07/01/2014 SEBASTIAN CALDERON MD Ot V87.41 07/04/2014 YUMIKO MASSEY, SEBASTIAN Arvizu Ot 202.80 OTH LYMPHOMAS EXTRANODAL SOLID ORGAN U 07/04/2014 SEBASTIAN CALDERON MD Ot 245.2 CHR LYMPHOCYT THYROIDIT 07/04/2014 YUMIKO MASSEY, SEBASTIAN Arvizu Ot 250.00 DIAB CÉSAR WO COMPL, TYPE II OR UNSPEC TY 07/04/2014 SEBASTIAN CALDERON MD Ot 272.4 HYPERLIPIDEMIA NEC/NOS 07/04/2014 SEBASTIAN CALDERON MD Ot 276.7 HYPERPOTASSEMIA 07/04/2014 SEBASTIAN CALDERON MD Ot 285.9 ANEMIA NOS 07/04/2014 SEBASTIAN CALDERON MD Ot 300.00 ANXIETY STATE NOS 07/04/2014 SEBASTIAN CALDERON MD Ot 311 DEPRESSIVE DISORDER NEC 07/04/2014 SEBASTIAN CALDERON MD Ot 401.9 07/04/2014 SEBASTIAN CALDERON MD Ot 403.90 HYPTNSV CHR KID DIS, UNSPEC, W CHR KD ST 07/04/2014 SEBASTIAN CALDERON MD Ot 414.01 CORONARY ATHEROSCLEROSIS OF [place] CORON 07/04/2014 SEBASTIAN CALDERON MD Ot 433.10 CAROTID ARTERY OCCLUSION W O CEREBRAL IN 07/04/2014 SEBASTIAN CALDERON MD Ot 433.30 MULT BILTRAL ARTERY OCCLUSION WO CEREBRA 07/04/2014 SEBASTIAN CALDERON MD Ot 466.0 ACUTE BRONCHITIS 07/04/2014 SEBASTIAN CALDERON MD Ot 486 PNEUMONIA, ORGANISM NOS 07/04/2014 SEBASTIAN CALDERON MD Ot 518.0 PULMONARY COLLAPSE 07/04/2014 SEBASTIAN CALDERON MD Ot 530.81 ESOPHAGEAL REFLUX 07/04/2014 SEBASTIAN CALDERON MD Ot 584.9 ACUTE RENAL FAILURE, UNSPECIFIED 07/04/2014 SEBASTIAN CALDERON MD Ot 585.9 CHRONIC KIDNEY DISEASE, UNSPECIFIED 07/04/2014 SEBASTIAN CALDERON MD Ot 596.54 NEUROGENIC BLADDER, NOT OTHERWISE SPECIF 07/04/2014 SEBASTIAN CALDERON MD Ot 600.01 HYPERTROPHY (BENIGN) OF PROSTATE W URINA 07/04/2014 SEBASTIAN CALDERON MD Ot 782.3 EDEMA 07/04/2014 SEBASTIAN CALDERON MD Ot 786.52 PAINFUL RESPIRATION 07/04/2014 SEBASTIAN CALDERON MD Ot 788.20 RETENTION OF URINE NOS 07/04/2014 SEBASTIAN CALDERON MD Ot V45.82 PERCUTANEOUS TRANSLUM CORON ANGIOPLASTY 07/04/2014 SEBASTIAN CALDERON MD Ot V58.61 ANTICOAGULANTS,LT,CURRENT USE 07/04/2014 SEBASTIAN CALDERON MD Ot V58.67 LONG-TERM (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 07/04/2014 SEBASTIAN CALDERON MD Ot V87.41 PERSONAL HISTORY OF ANTINEOPLASTIC CHEMO 07/06/2014 SEBASTIAN CALDERON MD Ot 202.80 OTH LYMPHOMAS EXTRANODAL SOLID ORGAN U 07/06/2014 SEBASTIAN CALDERON MD Ot 244.0 POSTSURGICAL HYPOTHYROID 07/06/2014 SEBASTIAN CALDERON MD Ot 250.00 DIAB CÉSAR WO COMPL, TYPE II OR UNSPEC TY 07/06/2014 SEBASTIAN CALDERON MD Ot 275.2 DIS MAGNESIUM METABOLISM 07/06/2014 SEBASTIAN CALDERON MD Ot 276.7 HYPERPOTASSEMIA 07/06/2014 SEBASTIAN CALDERON MD Ot 285.9 ANEMIA NOS 07/06/2014 SEBASTIAN CALDERON MD Ot 403.90 HYPTNSV CHR KID DIS, UNSPEC, W CHR KD ST 07/06/2014 SEBASTIAN CALDERON MD Ot 414.01 CORONARY ATHEROSCLEROSIS OF [place] CORON 07/06/2014 SEBASTIAN CALDERON MD Ot 486 PNEUMONIA, ORGANISM NOS 07/06/2014 SEBASTIAN CALDERON MD Ot 491.22 OBSTRUCTIVE CHRONIC BRONCHITIS WITH ACUT 07/06/2014 SEBASTIAN CALDERON MD Ot 514 PULM CONGEST/HYPOSTASIS 07/06/2014 SEBASTIAN CALDERON MD Ot 518.0 PULMONARY COLLAPSE 07/06/2014 SEBASTIAN CALDERON MD Ot 518.82 OTHER PULMONARY INSUFFICIENCY, NEC 07/06/2014 SEBASTIAN CALDERON MD Ot 584.9 ACUTE RENAL FAILURE, UNSPECIFIED 07/06/2014 SEBASTIAN CALDERON MD Ot 585.4 CHRONIC KIDNEY DISEASE, STAGE IV (SEVERE 07/06/2014 SEBASTIAN CALDERON MD Ot 600.01 HYPERTROPHY (BENIGN) OF PROSTATE W URINA 07/06/2014 SEBASTIAN CALDERON MD Ot 782.3 EDEMA 07/06/2014 SEBASTIAN CALDERON MD Ot 788.20 RETENTION OF URINE NOS 07/06/2014 SEBASTIAN CALDERON MD Ot V15.82 HISTORY OF TOBACCO USE 07/06/2014 SEBASTIAN CALDERON MD Ot V58.67 LONG-TERM (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 07/18/2014 SHIRA DORANTES Ot 202.80 OTH LYMPHOMAS EXTRANODAL SOLID ORGAN U 07/18/2014 SHIRA DORANTES Ot 244.9 HYPOTHYROIDISM NOS 07/18/2014 SHIRA DORANTES Ot 250.00 DIAB CÉSAR WO COMPL, TYPE II OR UNSPEC TY 07/18/2014 JAYNA, BOBAN N Ot 272.4 HYPERLIPIDEMIA NEC/NOS 07/18/2014 JAYNA, BOBAN N Ot 356.9 IDIO PERIPH NEURPTHY NOS 07/18/2014 JAYNA, BOBAN N Ot 403.90 HYPTNSV CHR KID DIS, UNSPEC, W CHR KD ST 07/18/2014 JAYNA, BOBAN N Ot 414.00 CORON ATHEROSCLER NOS TYPE VESSEL, NATIV 07/18/2014 JAYNA, BOBAN N Ot 585.3 CHRONIC KIDNEY DISEASE, STAGE III (MODER 07/18/2014 JAYNA, BOBAN N Ot 780.57 UNSPECIFIED SLEEP APNEA 07/18/2014 JAYNA, BOBAN N Ot V45.82 PERCUTANEOUS TRANSLUM CORON ANGIOPLASTY 07/18/2014 JAYNA, BOBAN N Ot V58.67 LONG-TERM (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 07/18/2014 JAYNA, BOBAN N Ot V58.69 OTH MED,LT,CURRENT USE 07/20/2014 TRAVON AN SAMPLE CHECKER Ot 250.00 07/20/2014 TRAVON AN SAMPLE CHECKER Ot 458.9 07/20/2014 TRAVON AN SAMPLE CHECKER Ot 585.4 07/20/2014 TRAVON AN SAMPLE CHECKER Ot 780.4 07/21/2014 JAYNA, BOBAN N Ot 202.80 07/21/2014 JAYNA, BOBAN N Ot 244.9 07/21/2014 JAYNA, BOBAN N Ot 250.00 07/21/2014 JAYNA, BOBAN N Ot 272.4 07/21/2014 JAYNA, BOBAN N Ot 356.9 07/21/2014 JAYNA, BOBAN N Ot 403.90 07/21/2014 JAYNA, BOBAN N Ot 414.00 07/21/2014 JAYNA, BOBAN N Ot 585.3 07/21/2014 JAYNA, BOBAN N Ot 780.57 07/21/2014 JAYNA, BOBAN N Ot V45.82 07/21/2014 JAYNA, BOBAN N Ot V58.67 07/21/2014 JAYNA, BOBAN N Ot V58.69 07/21/2014 JAYNA, BOBAN N Ot 202.80 07/21/2014 JAYNA, BOBAN N Ot 244.9 07/21/2014 JAYNA, BOBAN N Ot 250.00 07/21/2014 JAYNA, BOBAN N Ot 272.4 07/21/2014 JAYNA, BOBAN N Ot 356.9 07/21/2014 JAYNA, BOBAN N Ot 403.90 07/21/2014 JAYNA, BOBAN N Ot 414.00 07/21/2014 JAYNA, BOBAN N Ot 585.3 07/21/2014 JAYNA, BOBAN N Ot 780.57 07/21/2014 JAYNA, BOBAN N Ot V45.82 07/21/2014 JAYNA, BOBAN N Ot V58.67 07/21/2014 JAYNA, BOBAN N Ot V58.69 07/21/2014 JAYNA, BOBAN N Ot 202.80 07/21/2014 JAYNA, BOBAN N Ot 244.9 07/21/2014 JAYNA, BOBAN N Ot 250.00 07/21/2014 JAYNA, BOBAN N Ot 272.4 07/21/2014 JAYNA, BOBAN N Ot 356.9 07/21/2014 JAYNA, BOBAN N Ot 403.90 07/21/2014 JAYNA, BOBAN N Ot 414.00 07/21/2014 JAYNA, BOBAN N Ot 585.3 07/21/2014 JAYNA, BOBAN N Ot 780.57 07/21/2014 JAYNA, BOBAN N Ot V45.82 07/21/2014 JAYNA, BOBAN N Ot V58.67 07/21/2014 JAYNA, BOBAN N Ot V58.69 07/22/2014 JAYNA, BOBAN N Ot 202.80 07/22/2014 JAYNA, BOBAN N Ot 244.9 07/22/2014 JAYNA, BOBAN N Ot 250.00 07/22/2014 JAYNA, BOBAN N Ot 272.4 07/22/2014 JAYNA, BOBAN N Ot 356.9 07/22/2014 JAYNA, BOBAN N Ot 403.90 07/22/2014 JAYNA, BOBAN N Ot 414.00 07/22/2014 JAYNA, BOBAN N Ot 585.3 07/22/2014 JAYNA, BOBAN N Ot 780.57 07/22/2014 JAYNA, BOBAN N Ot V45.82 07/22/2014 JAYNA, BOBAN N Ot V58.67 07/22/2014 JAYNA, BOBAN N Ot V58.69 07/25/2014 Ot 241.0 07/25/2014 Ot 784.2 07/25/2014 Ot 785.6 07/25/2014 Ot 785.6 07/25/2014 Ot 784.2 07/25/2014 Ot V72.84 07/25/2014 Ot V74.8 07/25/2014 Ot 202.80 07/25/2014 Ot 202.80 07/25/2014 Ot V72.84 07/25/2014 Ot 202.80 07/25/2014 Ot 250.00 07/25/2014 Ot 202.88 07/25/2014 Ot 250.02 07/25/2014 Ot 272.4 07/25/2014 Ot 401.9 07/25/2014 Ot 202.80 07/25/2014 Ot 786.05 07/25/2014 Ot 202.80 07/25/2014 Ot 202.80 07/25/2014 Ot 250.01 07/25/2014 Ot 202.81 07/25/2014 Ot 244.9 07/25/2014 Ot 250.00 07/25/2014 Ot 272.4 07/25/2014 Ot 414.00 07/25/2014 Ot 585.3 07/25/2014 Ot V15.3 07/25/2014 Ot V45.82 07/25/2014 Ot V58.67 07/25/2014 Ot V58.69 07/25/2014 Ot V87.41 07/25/2014 Ot 202.80 07/25/2014 SHIRA DORANTES Ot 202.80 07/25/2014 Ot 397.0 07/25/2014 Ot 401.9 07/25/2014 Ot 414.00 07/25/2014 Ot 424.0 07/25/2014 Ot 786.09 07/25/2014 Ot 401.9 07/25/2014 Ot 414.00 07/25/2014 Ot 786.09 07/25/2014 Ot 244.9 07/25/2014 Ot 250.03 07/25/2014 Ot 401.9 07/25/2014 Ot 272.4 07/25/2014 Ot 401.9 07/25/2014 Ot 414.00 07/25/2014 YUMIKO MASSEY, SEBASTIAN Arvizu Ot 433.10 07/25/2014 YUMIKO MASSEY, SEBASTIAN Arvizu Ot 780.2 07/25/2014 YUMIKO MASSEY, SEBASTIAN A Ot 959.01 07/25/2014 YUMIKO MASSEY, SEBASTIAN A Ot E000.8 07/25/2014 YUMIKO MASSEY, SEBASTIAN A Ot E849.7 07/25/2014 YUMIKO MASSEY, SEBASTIAN A Ot E888.9 07/25/2014 SHIRA DORANTES Gen Ot 202.80 07/25/2014 BALTAZAR MASSEY, LIZETTE Caputo Ot 433.10 07/25/2014 MCLAIN HILAH S SAMPLE CHECKER Ot 202.80 07/25/2014 MCLAIN, HILAH S SAMPLE CHECKER Ot 244.9 07/25/2014 MCLAIN, HILAH S SAMPLE CHECKER Ot 585.3 07/25/2014 MCLAIN, HILAH S SAMPLE CHECKER Ot 780.4 07/25/2014 MCLAIN, HILAH S SAMPLE CHECKER Ot 783.21 07/25/2014 MCLAIN, HILAH S SAMPLE CHECKER Ot V15.3 07/25/2014 MCLAIN HILAH S SAMPLE CHECKER Ot V87.41 07/25/2014 MCLAIN HILAH S SAMPLE CHECKER Ot 202.80 07/25/2014 YUMIKO MASSEY, SEBASTIAN A Ot 272.4 07/25/2014 YUMIKO MASSEY, SEBASTIAN A Ot 401.9 07/25/2014 YUMIKO MASSEY, SEBASTIAN A Ot V58.69 07/25/2014 TRAVON AN SAMPLE CHECKER Ot 719.45 07/25/2014 TRAVON AN SAMPLE CHECKER Ot 786.50 07/25/2014 TRAVON AN SAMPLE CHECKER Ot E000.8 07/25/2014 TRAVON AN SAMPLE CHECKER Ot E849.6 07/25/2014 TRAVON AN SAMPLE CHECKER Ot E888.9 07/25/2014 MCLAIN, HILAH S SAMPLE CHECKER Ot 202.80 07/25/2014 MCLAIN, HILAH S SAMPLE CHECKER Ot 244.9 07/25/2014 MCLAIN, HILAH S SAMPLE CHECKER Ot 250.00 07/25/2014 MCLAIN, HILAH S SAMPLE CHECKER Ot 272.4 07/25/2014 MCLAIN, HILAH S SAMPLE CHECKER Ot 356.9 07/25/2014 MCLAIN, HILAH S SAMPLE CHECKER Ot 403.90 07/25/2014 MCLAIN HILAH S SAMPLE CHECKER Ot 414.00 07/25/2014 MCLAIN, HILAH S SAMPLE CHECKER Ot 585.3 07/25/2014 PAIGE MCLAIN S SAMPLE CHECKER Ot 780.57 07/25/2014 PAIGE MCLAIN S SAMPLE CHECKER Ot V15.3 07/25/2014 MCLAINPAIGE Matthews S SAMPLE CHECKER Ot V45.82 07/25/2014 MCLAINPAIGE Matthews S SAMPLE CHECKER Ot V58.67 07/25/2014 MCLAINPAIGE S SAMPLE CHECKER Ot V58.69 07/25/2014 MCLAINPAIGE Matthews S SAMPLE CHECKER Ot V87.41 07/25/2014 PAIGE MCLAIN S SAMPLE CHECKER Ot 202.80 07/25/2014 JAYNASHIRA CONRAD Gen Ot 202.80 07/25/2014 TRAVON AN SAMPLE CHECKER Ot 401.9 07/25/2014 TRAVON AN SAMPLE CHECKER Ot 518.0 07/25/2014 NICOLE MASSEY, CORY A Ot 591 07/25/2014 NICOLE MASESY, CORY A Ot 599.70 07/25/2014 NICOLE MASSEY, CORY A Ot 600.00 07/25/2014 NICOLE MASSEY, CORY A Ot 257.2 07/25/2014 NICOLE MASSEY, CORY A Ot 599.70 07/25/2014 NICOLE MASSEY, CORY A Ot 600.00 07/25/2014 TRAVON AN SAMPLE CHECKER Ot 250.01 07/25/2014 MCLAINPAIGE Matthews S SAMPLE CHECKER Ot 202.80 07/25/2014 MCLAINPAIGE Matthews S SAMPLE CHECKER Ot 202.88 07/25/2014 MCLAINPAIGE Matthews S SAMPLE CHECKER Ot 244.9 07/25/2014 MCLAINPAIGE Matthews S SAMPLE CHECKER Ot 250.00 07/25/2014 MCLAINPAIGE Matthews S SAMPLE CHECKER Ot 414.00 07/25/2014 MCLAINPAIGE Matthews S SAMPLE CHECKER Ot 585.3 07/25/2014 MCLAINPAIGE Matthews S SAMPLE CHECKER Ot V45.82 07/25/2014 MCLAINPAIGE Matthews S SAMPLE CHECKER Ot V58.67 07/25/2014 MCLAINPAIGE S SAMPLE CHECKER Ot V58.69 07/25/2014 YUMIKO MASSEY, SEBASTIAN Arvizu Ot V58.69 07/25/2014 YUMIKO MASSEY, SEBASTIAN Arvizu Ot V58.83 07/25/2014 MCLAINPAIGE Matthews SAMPLE CHECKER Ot 202.80 07/25/2014 MCLAINPAIGE Matthews S SAMPLE CHECKER Ot 244.9 07/25/2014 MCLAINPAIGE Matthews S SAMPLE CHECKER Ot 250.00 07/25/2014 MCLAINPAIGE S SAMPLE CHECKER Ot 272.4 07/25/2014 MCLAINPAIGE S SAMPLE CHECKER Ot 356.9 07/25/2014 MCLAINPAIGE S SAMPLE CHECKER Ot 403.90 07/25/2014 MCLAINPAIGE S SAMPLE CHECKER Ot 414.00 07/25/2014 MCLAINPAIGE S SAMPLE CHECKER Ot 585.3 07/25/2014 MCLAINPAIGE S SAMPLE CHECKER Ot 780.57 07/25/2014 MCLAINPAIGE Matthews S SAMPLE CHECKER Ot V45.82 07/25/2014 MCLAINPAIGE Matthews S SAMPLE CHECKER Ot V58.67 07/25/2014 MCLAINPAIGE S SAMPLE CHECKER Ot V58.69 07/25/2014 TRAVON AN SAMPLE CHECKER Ot 250.01 07/25/2014 TRAVON AN SAMPLE CHECKER Ot 272.4 07/25/2014 TRAVON AN SAMPLE CHECKER Ot 401.9 07/25/2014 YUMIKO MASSEY, SEBASTIAN A Ot 250.01 07/25/2014 YUMIKO MASSEY, SEBASTIAN A Ot V58.69 07/25/2014 YUMIKO MASSEY, SEBASTIAN A Ot V58.83 07/25/2014 YUMIKO MASSEY, SEBASTIAN A Ot 285.9 07/25/2014 YUMIKO MASSEY, SEBASTIAN A Ot 786.2 07/25/2014 YUMIKO MASSEY, SEBASTIAN A Ot 786.2 07/25/2014 TRAVON AN SAMPLE CHECKER Ot 285.9 07/25/2014 TRAVON AN SAMPLE CHECKER Ot 288.60 07/25/2014 YUMIKO MASSEY, SEBASTIAN A Ot 285.9 07/25/2014 YUMIKO MASSEY, SEBASTIAN A Ot 490 07/25/2014 YUMIKO MASSEY, SEBASTIAN A Ot 780.79 07/25/2014 ABRAHAM MARC DO Ot V72.84 07/25/2014 TIESHA LOVE Ot 250.92 07/25/2014 TIESHA LOVE Ot 272.4 07/25/2014 TIESHA LOVE Ot 401.9 07/25/2014 BRYNN ROBLEDO TIESHA Dinah Ot 414.01 07/25/2014 MCLAINPAIGE Matthews SAMPLE CHECKER Ot 202.88 07/25/2014 MCLAINPAIGE Matthews S SAMPLE CHECKER Ot 244.9 07/25/2014 MCLAINPAIGE Matthews S SAMPLE CHECKER Ot 250.00 07/25/2014 MCLAINAPIGE Matthews S SAMPLE CHECKER Ot 414.00 07/25/2014 MCLAINPAIGE Matthews S SAMPLE CHECKER Ot 585.3 07/25/2014 MCLAINPAIGE Matthews S SAMPLE CHECKER Ot V58.67 07/25/2014 MCLAINPAIGE Matthews S SAMPLE CHECKER Ot V58.69 07/25/2014 MCLAINPAIGE Matthews S SAMPLE CHECKER Ot 202.80 07/25/2014 VIKTOR MASSEY, TEDDY Anders Ot 272.4 07/25/2014 VIKTOR MASSEY, TEDDY J Ot 401.9 07/25/2014 VIKTOR MASSEY, TEDDY Andres Ot 414.00 07/25/2014 VIKTOR MASSEY, TEDDY Andres Ot 780.2 07/25/2014 VIKTOR MASSEY, TEDDY Andres Ot 401.9 07/25/2014 VIKTOR MASSEY, TEDDY Andres Ot 414.00 07/25/2014 VIKTOR MASSEY, TEDDY Andres Ot 780.2 07/25/2014 MCLAINPAIGE Matthews SAMPLE CHECKER Ot 202.80 07/25/2014 Ot 202.88 07/25/2014 Ot 244.9 07/25/2014 Ot 250.00 07/25/2014 Ot 414.00 07/25/2014 Ot 784.0 07/25/2014 Ot V45.82 07/25/2014 Ot V58.67 07/25/2014 Ot V58.69 07/25/2014 JAYNA, BOBAN N Ot 202.80 07/25/2014 JAYNA, BOBAN N Ot 244.9 07/25/2014 JAYNA, BOBAN N Ot 250.00 07/25/2014 JAYNA, BOBAN N Ot 414.01 07/25/2014 JAYNA, BOBAN N Ot 585.3 07/25/2014 JAYNA, BOBAN N Ot V45.82 07/25/2014 JAYNA, BOBAN N Ot V58.67 07/25/2014 Ot 593.89 07/25/2014 Ot 789.00 07/25/2014 JAYNA, BOBAN N Ot 202.80 07/25/2014 NICOLE MASSEY, CORY Arvizu Ot 593.9 07/25/2014 NATALIYATRAVON SAMPLE CHECKER Ot 721.0 07/25/2014 NATALIYA TRAVON Caputo SAMPLE CHECKER Ot 721.3 07/25/2014 NATALIYA TRAVON Caputo SAMPLE CHECKER Ot E000.8 07/25/2014 NATALIYA TRAVON M SAMPLE CHECKER Ot E819.9 07/25/2014 NATALIYA TRAVON Caputo SAMPLE CHECKER Ot 250.00 07/25/2014 NATALIYATRAVON SAMPLE CHECKER Ot 787.01 07/25/2014 Ot 202.80 07/25/2014 Ot 250.00 07/25/2014 Ot 401.9 07/25/2014 Ot 780.79 07/25/2014 Ot 784.0 07/25/2014 Ot 787.02 07/25/2014 Ot V45.82 07/25/2014 Ot V57.89 07/25/2014 JAYNA, BOBAN N Ot 202.80 07/25/2014 JAYNA, BOBAN N Ot 244.9 07/25/2014 JAYNA, BOBAN N Ot 250.00 07/25/2014 JAYNA, BOBAN N Ot 272.4 07/25/2014 JAYNA, BOBAN N Ot 356.9 07/25/2014 JAYNA, BOBAN N Ot 403.90 07/25/2014 JAYNA, BOBAN N Ot 414.00 07/25/2014 JAYNA, BOBAN N Ot 585.3 07/25/2014 JAYNA, BOBAN N Ot 780.57 07/25/2014 JAYNA, BOBAN N Ot V45.82 07/25/2014 JAYNA, BOBAN N Ot V58.67 07/25/2014 JAYNA, BOBAN N Ot V58.69 07/25/2014 NATALIYA TRAVON Caputo SAMPLE CHECKER Ot 250.00 07/25/2014 TRAVON AN SAMPLE CHECKER Ot 458.9 07/25/2014 EMORY ANSHARITA Caputo SAMPLE CHECKER Ot 585.4 07/25/2014 TRAVON AN SAMPLE CHECKER Ot 780.4 08/01/2014 TRAVON AN SAMPLE CHECKER Ot 401.9 08/02/2014 TRAVON AN SAMPLE CHECKER Ot 401.9 08/05/2014 TRAVON AN SAMPLE CHECKER Ot 250.01 08/05/2014 TRAVON AN SAMPLE CHECKER Ot 401.9 08/05/2014 TRAVON AN SAMPLE CHECKER Ot V58.69 08/05/2014 TRAVON AN SAMPLE CHECKER Ot V72.62 08/05/2014 NATALIYATRAVON SAMPLE CHECKER Ot 250.01 08/05/2014 NATALIYATRAVON SAMPLE CHECKER Ot 401.9 08/05/2014 ANTRAVON SAMPLE CHECKER Ot V58.69 08/05/2014 TRAVON AN SAMPLE CHECKER Ot V72.62 08/05/2014 OTHER, UNLISTED Ot 250.00 08/05/2014 OTHER, UNLISTED Ot 401.9 08/05/2014 OTHER, UNLISTED Ot 491.21 08/05/2014 OTHER, UNLISTED Ot 593.9 08/05/2014 OTHER, UNLISTED Ot 250.00 08/05/2014 OTHER, UNLISTED Ot 401.9 08/05/2014 OTHER, UNLISTED Ot 491.21 08/05/2014 OTHER, UNLISTED Ot 593.9 08/15/2014 DAVID CEJA DO Ot 327.23 08/15/2014 DAVID CEJA DO Ot 486 08/18/2014 NATALIYATRAVON SAMPLE CHECKER Ot 250.00 08/18/2014 NATALIYATRAVON SAMPLE CHECKER Ot 458.9 08/18/2014 NATALIYATRAVON SAMPLE CHECKER Ot 585.4 08/18/2014 NATALIYATRAVON SAMPLE CHECKER Ot 780.4 08/18/2014 NATALIYATRAVON SAMPLE CHECKER Ot 401.9 08/22/2014 JAYNA, BOBAN N Ot 202.80 08/22/2014 JAYNA, BOBAN N Ot 244.9 08/22/2014 JAYNA, BOBAN N Ot 250.00 08/22/2014 JAYNA, BOBAN N Ot 272.4 08/22/2014 JAYNA, BOBAN N Ot 356.9 08/22/2014 JAYNA, BOBAN N Ot 403.90 08/22/2014 JAYNA, BOBAN N Ot 414.00 08/22/2014 JAYNA, BOBAN N Ot 585.3 08/22/2014 JAYNA, BOBAN N Ot 780.57 08/22/2014 SHIRA DORANTES N Ot V45.82 08/22/2014 SHIRA DORANTES N Ot V58.67 08/22/2014 SHIRA DORANTES N Ot V58.69 08/25/2014 TRAVON AN SAMPLE CHECKER Ot 250.00 08/25/2014 TRAVON AN SAMPLE CHECKER Ot 458.9 08/25/2014 TRAVON AN SAMPLE CHECKER Ot 585.4 08/25/2014 TRAVON AN SAMPLE CHECKER Ot 780.4 08/25/2014 MARCIAL , DAVID M Ot 327.23 08/25/2014 MARCIAL DO, DAVID M Ot 486 08/26/2014 ANTRAVON SAMPLE CHECKER Ot 250.01 08/26/2014 ANTRAVON SAMPLE CHECKER Ot 401.9 08/26/2014 TRAVON AN SAMPLE CHECKER Ot V58.69 08/26/2014 TRAVON AN SAMPLE CHECKER Ot V72.62 09/07/2014 OTHER, UNLISTED Ot 250.00 09/07/2014 OTHER, UNLISTED Ot 401.9 09/07/2014 OTHER, UNLISTED Ot 491.21 09/07/2014 OTHER, UNLISTED Ot 593.9 09/12/2014 MARCIAL DO, DAVID M Ot 327.23 09/12/2014 MARCIAL DO, DAVID M Ot 486 09/12/2014 MARCIAL DO, DAVID M Ot 786.09 09/12/2014 MARCIAL DO, DAVID M Ot 786.2 09/13/2014 YOBANI MASSEY, GEOVANNA Jaquez Ot 250.80 09/13/2014 YOBANI MASSEY, GEOVANNA Jaquez Ot 707.14 09/13/2014 MARCIAL DO, DAVID M Ot 327.23 09/13/2014 MARCIAL DO, DAVID M Ot 486 09/13/2014 MARCIAL DO, DAVID M Ot 786.09 09/15/2014 MARCIAL DO, DAVID M Ot 327.23 09/15/2014 MARCIAL DO, DAVID M Ot 486 09/15/2014 MARCIAL DO, DAVID M Ot 786.09 10/11/2014 YOBANI MASSEY, GEOVANNA Jaquez Ot 250.80 10/11/2014 YOBANI MASSEY, GEOVANNA Jaquez Ot 707.14 10/12/2014 ROSS QUIÑONES ELECTRIC FRYING PAN REPAIRER-C Ot 403.10 10/12/2014 [place] ELECTRIC FRYING PAN REPAIRER-C Ot 584.9 10/12/2014 NURIAROSS ELECTRIC FRYING PAN REPAIRER-C Ot 585.4 10/12/2014 NURIAROSS ELECTRIC FRYING PAN REPAIRER-C Ot 782.3 10/14/2014 YOBANI MASSEY, GEOVANNA Jaquez Ot 443.9 10/14/2014 YOBANI MASSEY, GEOVANNA Jaquez Ot 707.15 10/14/2014 YOBANI MASSEY, GEOVANNA Jaquez Ot 250.80 10/14/2014 YOBANI MASSEY, GEOVANNA Jaquez Ot 707.14 10/19/2014 AMRY DORANTESAN N Ot 202.80 OTH LYMPHOMAS EXTRANODAL SOLID ORGAN U 10/19/2014 JAYNA BOBAN N Ot 244.9 HYPOTHYROIDISM NOS 10/19/2014 JAYNA, BOBAN N Ot 250.00 DIAB CÉSAR WO COMPL, TYPE II OR UNSPEC TY 10/19/2014 JAYNA, BOBAN N Ot 272.4 HYPERLIPIDEMIA NEC/NOS 10/19/2014 JAYNA BOBAN N Ot 285.21 ANEMIA IN CHRONIC KIDNEY DISEASE 10/19/2014 JAYNA BOBAN N Ot 356.9 IDIO PERIPH NEURPTHY NOS 10/19/2014 JAYNA BOBAN N Ot 403.90 HYPTNSV CHR KID DIS, UNSPEC, W CHR KD ST 10/19/2014 JAYNA BOBAN N Ot 414.00 CORON ATHEROSCLER NOS TYPE VESSEL, NATIV 10/19/2014 MARY DORANTESAN N Ot 585.3 10/19/2014 JAYNA BOBAN N Ot 585.4 CHRONIC KIDNEY DISEASE, STAGE IV (SEVERE 10/19/2014 JAYNA BOBAN N Ot 780.57 UNSPECIFIED SLEEP APNEA 10/19/2014 JAYNA BOBAN N Ot V45.82 PERCUTANEOUS TRANSLUM CORON ANGIOPLASTY 10/19/2014 JAYNA BOBAN N Ot V58.67 LONG-TERM (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 10/19/2014 JAYNA BOBAN N Ot V58.69 OTH MED,LT,CURRENT USE 10/20/2014 Ot 202.88 10/20/2014 Ot 244.9 10/20/2014 Ot 250.00 10/20/2014 Ot 414.00 10/20/2014 Ot 784.0 10/20/2014 Ot V45.82 10/20/2014 Ot V58.67 10/20/2014 Ot V58.69 10/20/2014 YOBANI MASSEY, GEOVANNA Jaquez Ot 443.9 10/20/2014 YOBANI MASSEY, GEOVANNA Jaquez Ot 707.15 10/27/2014 Ot 241.0 10/27/2014 Ot 784.2 10/27/2014 Ot 785.6 10/27/2014 Ot 785.6 10/27/2014 Ot 784.2 10/27/2014 Ot V72.84 10/27/2014 Ot V74.8 10/27/2014 Ot 202.80 10/27/2014 Ot 202.80 10/27/2014 Ot V72.84 10/27/2014 Ot 202.80 10/27/2014 Ot 250.00 10/27/2014 Ot 202.88 10/27/2014 Ot 250.02 10/27/2014 Ot 272.4 10/27/2014 Ot 401.9 10/27/2014 Ot 202.80 10/27/2014 Ot 786.05 10/27/2014 Ot 202.80 10/27/2014 Ot 202.80 10/27/2014 Ot 250.01 10/27/2014 Ot 202.81 10/27/2014 Ot 244.9 10/27/2014 Ot 250.00 10/27/2014 Ot 272.4 10/27/2014 Ot 414.00 10/27/2014 Ot 585.3 10/27/2014 Ot V15.3 10/27/2014 Ot V45.82 10/27/2014 Ot V58.67 10/27/2014 Ot V58.69 10/27/2014 Ot V87.41 10/27/2014 Ot 202.80 10/27/2014 SHIRA DORANTES Ot 202.80 10/27/2014 Ot 397.0 10/27/2014 Ot 401.9 10/27/2014 Ot 414.00 10/27/2014 Ot 424.0 10/27/2014 Ot 786.09 10/27/2014 Ot 401.9 10/27/2014 Ot 414.00 10/27/2014 Ot 786.09 10/27/2014 Ot 244.9 10/27/2014 Ot 250.03 10/27/2014 Ot 401.9 10/27/2014 Ot 272.4 10/27/2014 Ot 401.9 10/27/2014 Ot 414.00 10/27/2014 YUMIKO MASSEY, SEBASTIAN A Ot 433.10 10/27/2014 YUMIKO MASSEY, SEBASTIAN A Ot 780.2 10/27/2014 YUMIKO MASSEY, SEBASTIAN A Ot 959.01 10/27/2014 YUMIKO MASSEY, SEBASTIAN A Ot E000.8 10/27/2014 YUMIKO MASSEY, SEBASTIAN A Ot E849.7 10/27/2014 YUMIKO MASSEY, SEBASTIAN A Ot E888.9 10/27/2014 SHIRA DORANTES Ot 202.80 10/27/2014 BALTAZAR MASSEY, LIZETTE Caputo Ot 433.10 10/27/2014 MCLAIN, HILAH S SAMPLE CHECKER Ot 202.80 10/27/2014 MCLAIN HILAH S SAMPLE CHECKER Ot 244.9 10/27/2014 MCLAIN HILAH S SAMPLE CHECKER Ot 585.3 10/27/2014 MCLAIN, HILAH S SAMPLE CHECKER Ot 780.4 10/27/2014 MCLAIN HILAH S SAMPLE CHECKER Ot 783.21 10/27/2014 MCLAIN HILAH S SAMPLE CHECKER Ot V15.3 10/27/2014 MCLAIN HILAH S SAMPLE CHECKER Ot V87.41 10/27/2014 MCLAIN, HILAH S SAMPLE CHECKER Ot 202.80 10/27/2014 YUMIKO MASSEY, SEBASTIAN A Ot 272.4 10/27/2014 YUMIKO MASSEY, SEBASTIAN A Ot 401.9 10/27/2014 YUMIKO MASSEY, SEBASTIAN A Ot V58.69 10/27/2014 TRAVON AN SAMPLE CHECKER Ot 719.45 10/27/2014 TRAVON AN SAMPLE CHECKER Ot 786.50 10/27/2014 TRAVON AN SAMPLE CHECKER Ot E000.8 10/27/2014 TRAVON AN SAMPLE CHECKER Ot E849.6 10/27/2014 TRAVON AN SAMPLE CHECKER Ot E888.9 10/27/2014 MCLAIN HILAH S SAMPLE CHECKER Ot 202.80 10/27/2014 MCLAIN HILAH S SAMPLE CHECKER Ot 244.9 10/27/2014 MCLAIN HILAH S SAMPLE CHECKER Ot 250.00 10/27/2014 MCLAIN HILAH S SAMPLE CHECKER Ot 272.4 10/27/2014 MCLAIN HILAH S SAMPLE CHECKER Ot 356.9 10/27/2014 MCLAIN, HILAH S SAMPLE CHECKER Ot 403.90 10/27/2014 MCLAINPAIGE Matthews S SAMPLE CHECKER Ot 414.00 10/27/2014 MCLAINPAIGE Matthews S SAMPLE CHECKER Ot 585.3 10/27/2014 MCLAINPAIGE Matthews S SAMPLE CHECKER Ot 780.57 10/27/2014 MCLAINPAIGE Matthews S SAMPLE CHECKER Ot V15.3 10/27/2014 MCLAINPAIGE S SAMPLE CHECKER Ot V45.82 10/27/2014 MCLAINPAIGE S SAMPLE CHECKER Ot V58.67 10/27/2014 MCLAINPAIGE S SAMPLE CHECKER Ot V58.69 10/27/2014 MCLAINPAIGE Matthews S SAMPLE CHECKER Ot V87.41 10/27/2014 PAIGE MCLAIN S SAMPLE CHECKER Ot 202.80 10/27/2014 SHIRA DORANTES Ot 202.80 10/27/2014 TRAVON AN SAMPLE CHECKER Ot 401.9 10/27/2014 TRAVON AN SAMPLE CHECKER Ot 518.0 10/27/2014 NICOLE MASSEY, CORY A Ot 591 10/27/2014 NICOLE MASSEY, CORY A Ot 599.70 10/27/2014 NICOLE MASSEY, CORY A Ot 600.00 10/27/2014 NICOLE MASSEY, CORY A Ot 257.2 10/27/2014 NICOLE MASSEY, CORY A Ot 599.70 10/27/2014 NICOLE MASSEY, CORY A Ot 600.00 10/27/2014 TRAVON AN SAMPLE CHECKER Ot 250.01 10/27/2014 PAIGE MCLAIN S SAMPLE CHECKER Ot 202.80 10/27/2014 MCLAINPAIGE Matthews S SAMPLE CHECKER Ot 202.88 10/27/2014 MCLAINPAIGE Matthews S SAMPLE CHECKER Ot 244.9 10/27/2014 MCLAINPAIGE S SAMPLE CHECKER Ot 250.00 10/27/2014 MCLAINPAIGE S SAMPLE CHECKER Ot 414.00 10/27/2014 MCLAINPAIGE Matthews S SAMPLE CHECKER Ot 585.3 10/27/2014 MCLAINPAIGE S SAMPLE CHECKER Ot V45.82 10/27/2014 MCLAINPAIGE S SAMPLE CHECKER Ot V58.67 10/27/2014 MCLAINPAIGE S SAMPLE CHECKER Ot V58.69 10/27/2014 YUMIKO MASSEY, SEBASTIAN A Ot V58.69 10/27/2014 YUMIKO MASSEY, SEBASTIAN A Ot V58.83 10/27/2014 MCLAINPAIGE Matthews S SAMPLE CHECKER Ot 202.80 10/27/2014 MCLAINPAIGE Matthews S SAMPLE CHECKER Ot 244.9 10/27/2014 MCLAINPAIGE S SAMPLE CHECKER Ot 250.00 10/27/2014 MCLAINPAIGE S SAMPLE CHECKER Ot 272.4 10/27/2014 MCLAIN HILAH S SAMPLE CHECKER Ot 356.9 10/27/2014 MCLAINCYNTHIAAH S SAMPLE CHECKER Ot 403.90 10/27/2014 MCLAINPAIGE S SAMPLE CHECKER Ot 414.00 10/27/2014 MCLAINPAIGE S SAMPLE CHECKER Ot 585.3 10/27/2014 MCLAINPAIGE S SAMPLE CHECKER Ot 780.57 10/27/2014 MCLAINPAIGE S SAMPLE CHECKER Ot V45.82 10/27/2014 MCLAINPAIGE S SAMPLE CHECKER Ot V58.67 10/27/2014 MCLAINPAIGE S SAMPLE CHECKER Ot V58.69 10/27/2014 TRAVON AN SAMPLE CHECKER Ot 250.01 10/27/2014 TRAVON AN SAMPLE CHECKER Ot 272.4 10/27/2014 TRAVON AN SAMPLE CHECKER Ot 401.9 10/27/2014 YUMIKO MASSEY, SEBASTIAN A Ot 250.01 10/27/2014 YUMIKO MASSEY, SEBASTIAN A Ot V58.69 10/27/2014 YUMIKO MASSEY, SEBASTIAN A Ot V58.83 10/27/2014 YUMIKO MASSEY, SEBASTIAN A Ot 285.9 10/27/2014 YUMIKO MASSEY, SEBASTIAN A Ot 786.2 10/27/2014 YUMIKO MASSEY, SEBASTIAN A Ot 786.2 10/27/2014 TRAVON AN SAMPLE CHECKER Ot 285.9 10/27/2014 TRAVON AN SAMPLE CHECKER Ot 288.60 10/27/2014 YUMIKO MASSEY, SEBASTIAN A Ot 285.9 10/27/2014 YUMIKO MASSEY, SEBASTIAN A Ot 490 10/27/2014 YUMIKO MASSEY, SEBASTIAN A Ot 780.79 10/27/2014 ABRAHAM MARC DO Ot V72.84 10/27/2014 TIESHA LOVE Ot 250.92 10/27/2014 TIESHA LOVE Ot 272.4 10/27/2014 TIESHA LOVE Ot 401.9 10/27/2014 TIESHA LOVE Ot 414.01 10/27/2014 MCLAINPAIGE Matthews S SAMPLE CHECKER Ot 202.88 10/27/2014 MCLAINPAIGE S SAMPLE CHECKER Ot 244.9 10/27/2014 MCLAINPAIGE S SAMPLE CHECKER Ot 250.00 10/27/2014 MCALINCYNTHIAAH S SAMPLE CHECKER Ot 414.00 10/27/2014 MCLAINCYNTHIAAH S SAMPLE CHECKER Ot 585.3 10/27/2014 MCLAINPAIGE S SAMPLE CHECKER Ot V58.67 10/27/2014 MCLAINCYNTHIAAH S SAMPLE CHECKER Ot V58.69 10/27/2014 MCLAINPAIGE S SAMPLE CHECKER Ot 202.80 10/27/2014 VIKTOR MASSEY, TEDDY Andres Ot 272.4 10/27/2014 VIKTOR MASSEY, TEDDY Andres Ot 401.9 10/27/2014 VIKTOR MASSEY, TEDDY Andres Ot 414.00 10/27/2014 VIKTOR MASSEY, TEDDY Andres Ot 780.2 10/27/2014 VIKTOR MASSEY, TEDDY Andres Ot 401.9 10/27/2014 VIKTOR MASSEY, TEDDY Andres Ot 414.00 10/27/2014 VIKTOR MASSEY, TEDDY Andres Ot 780.2 10/27/2014 MCLAINPAIGE Matthews S SAMPLE CHECKER Ot 202.80 10/27/2014 Ot 202.88 10/27/2014 Ot 244.9 10/27/2014 Ot 250.00 10/27/2014 Ot 414.00 10/27/2014 Ot 784.0 10/27/2014 Ot V45.82 10/27/2014 Ot V58.67 10/27/2014 Ot V58.69 10/27/2014 JAYNA, BOBAN N Ot 202.80 10/27/2014 JAYNA, BOBAN N Ot 244.9 10/27/2014 JAYNA, BOBAN N Ot 250.00 10/27/2014 JAYNA, BOBAN N Ot 414.01 10/27/2014 JAYNA, BOBAN N Ot 585.3 10/27/2014 JAYNA, BOBAN N Ot V45.82 10/27/2014 JAYNA, BOBAN N Ot V58.67 10/27/2014 Ot 593.89 10/27/2014 Ot 789.00 10/27/2014 SHIRA DORANTES Ot 202.80 10/27/2014 CORY RIVERA MD Ot 593.9 10/27/2014 NATALIYATRAVON SAMPLE CHECKER Ot 721.0 10/27/2014 NATALIYATRAVON SAMPLE CHECKER Ot 721.3 10/27/2014 NATALIYATRAVON SAMPLE CHECKER Ot E000.8 10/27/2014 NATALIYATRAVON SAMPLE CHECKER Ot E819.9 10/27/2014 NATALIYATRAVON SAMPLE CHECKER Ot 250.00 10/27/2014 NATALIYATRAVON SAMPLE CHECKER Ot 787.01 10/27/2014 Ot 202.80 10/27/2014 Ot 250.00 10/27/2014 Ot 401.9 10/27/2014 Ot 780.79 10/27/2014 Ot 784.0 10/27/2014 Ot 787.02 10/27/2014 Ot V45.82 10/27/2014 Ot V57.89 10/27/2014 NATALIYA TRAVON Caputo SAMPLE CHECKER Ot 250.00 10/27/2014 NATALIYA TRAVON Caputo SAMPLE CHECKER Ot 458.9 10/27/2014 NATALIYA TRAVON Caputo SAMPLE CHECKER Ot 585.4 10/27/2014 NATALIYA TRAVON Caputo SAMPLE CHECKER Ot 780.4 10/27/2014 MARCIAL LU, DAVID M Ot 327.23 10/27/2014 MARCIAL DO, DAVID M Ot 486 10/27/2014 MARCIAL DO, DAVID M Ot 327.23 10/27/2014 MARCIAL DO, DAVID M Ot 486 10/27/2014 MARCIAL DO, DAVID M Ot 786.09 10/27/2014 MARCIAL DO, DAVID M Ot 327.23 10/27/2014 MARCIAL DO, DAVID M Ot 486 10/27/2014 MARCIAL DO, DAVID M Ot 786.09 10/27/2014 MARCIAL DO, DAVID M Ot 786.2 10/27/2014 NATALIYA TRAVON Caputo SAMPLE CHECKER Ot 401.9 10/27/2014 NATALIYA TRAVON Caputo SAMPLE CHECKER Ot 250.01 10/27/2014 NATALIYA TRAVON Caputo SAMPLE CHECKER Ot 401.9 10/27/2014 NATALIYATRAVON SAMPLE CHECKER Ot V58.69 10/27/2014 NATALIYATRAVON SAMPLE CHECKER Ot V72.62 10/27/2014 OTHER, UNLISTED Ot 250.00 10/27/2014 OTHER, UNLISTED Ot 401.9 10/27/2014 OTHER, UNLISTED Ot 491.21 10/27/2014 OTHER, UNLISTED Ot 593.9 10/27/2014 YOBANI MASSEY, GEOVANNA Leonid Ot 250.80 10/27/2014 YOBANI MASSEY, GEOVANNA Jaquez Ot 707.14 10/27/2014 YOBANI MASSEY, GEOVANNA Leonid Ot 443.9 10/27/2014 YOBANI MASSEY, GEOVANNA Jaquez Ot 707.15 10/27/2014 ROSS QUIÑONES ELECTRIC FRYING PAN REPAIRER-C Ot 403.10 10/27/2014 ROSS QUIÑONES ELECTRIC FRYING PAN REPAIRER-C Ot 584.9 10/27/2014 [place] ELECTRIC FRYING PAN REPAIRER-C Ot 585.4 10/27/2014 ROSS QUIÑONES ELECTRIC FRYING PAN REPAIRER-C Ot 782.3 10/27/2014 JAYNA, BOBAN N Ot 202.80 10/27/2014 JAYNA, BOBAN N Ot 244.9 10/27/2014 JAYNA, BOBAN N Ot 250.00 10/27/2014 JAYNA, BOBAN N Ot 272.4 10/27/2014 JAYNA, BOBAN N Ot 356.9 10/27/2014 JAYNA, BOBAN N Ot 403.90 10/27/2014 JAYNA, BOBAN N Ot 414.00 10/27/2014 JAYNA, BOBAN N Ot 585.3 10/27/2014 JAYNA, BOBAN N Ot 780.57 10/27/2014 JAYNA, BOBAN N Ot V45.82 10/27/2014 JAYNA, BOBAN N Ot V58.67 10/27/2014 JAYNA, BOBAN N Ot V58.69 10/28/2014 JAYNA, BOBAN N Ot 202.80 10/28/2014 JAYNA, BOBAN N Ot 244.9 10/28/2014 JAYNA, BOBAN N Ot 250.00 10/28/2014 JAYNA, BOBAN N Ot 272.4 10/28/2014 JAYNA, BOBAN N Ot 356.9 10/28/2014 JAYNA, BOBAN N Ot 403.90 10/28/2014 JAYNASHIRA CONRAD N Ot 414.00 10/28/2014 JAYNASHIRA CONRAD N Ot 585.3 10/28/2014 SHIRA DORANTES N Ot 780.57 10/28/2014 JAYNASHIRA CONRAD N Ot V45.82 10/28/2014 JAYNASHIRA CONRAD N Ot V58.67 10/28/2014 SHIRA DORANTES N Ot V58.69 10/31/2014 ROSS QUIÑ[employer]ES ELECTRIC FRYING PAN REPAIRER-C Ot 403.10 10/31/[address] [place] ELECTRIC FRYING PAN REPAIRER-C Ot 584.9 10/31/2014 ROSS QUIÑONES ELECTRIC FRYING PAN REPAIRER-C Ot 585.4 10/31/2014 ROSS QUIÑ[place]ES ELECTRIC FRYING PAN REPAIRER-C Ot 782.3 10/31/2014 YUMIKO MASSEY, SEBASTIAN Arvizu Ot 244.9 10/31/2014 YUMIKO MASSEY, SEBASTIAN A Ot 250.02 10/31/2014 YUMIKO MASSEY, SEBASTIAN A Ot 401.9 11/01/2014 YUMIKO MASSEY, SEBASTIAN A Ot 458.9 11/01/2014 YUMIKO MASSEY, SEBASTIAN Arvizu Ot 586 11/01/2014 Ot 241.0 11/01/2014 Ot 784.2 11/01/2014 Ot 785.6 11/01/2014 Ot 785.6 11/01/2014 Ot 784.2 11/01/2014 Ot V72.84 11/01/2014 Ot V74.8 11/01/2014 Ot 202.80 11/01/2014 Ot 202.80 11/01/2014 Ot V72.84 11/01/2014 Ot 202.80 11/01/2014 Ot 250.00 11/01/2014 Ot 202.88 11/01/2014 Ot 250.02 11/01/2014 Ot 272.4 11/01/2014 Ot 401.9 11/01/2014 Ot 202.80 11/01/2014 Ot 786.05 11/01/2014 Ot 202.80 11/01/2014 Ot 202.80 11/01/2014 Ot 250.01 11/01/2014 Ot 202.81 11/01/2014 Ot 244.9 11/01/2014 Ot 250.00 11/01/2014 Ot 272.4 11/01/2014 Ot 414.00 11/01/2014 Ot 585.3 11/01/2014 Ot V15.3 11/01/2014 Ot V45.82 11/01/2014 Ot V58.67 11/01/2014 Ot V58.69 11/01/2014 Ot V87.41 11/01/2014 Ot 202.80 11/01/2014 SHIRA DORANTES Gen Ot 202.80 11/01/2014 Ot 397.0 11/01/2014 Ot 401.9 11/01/2014 Ot 414.00 11/01/2014 Ot 424.0 11/01/2014 Ot 786.09 11/01/2014 Ot 401.9 11/01/2014 Ot 414.00 11/01/2014 Ot 786.09 11/01/2014 Ot 244.9 11/01/2014 Ot 250.03 11/01/2014 Ot 401.9 11/01/2014 Ot 272.4 11/01/2014 Ot 401.9 11/01/2014 Ot 414.00 11/01/2014 YUMIKO MASSEY, SEBASTIAN Arvizu Ot 433.10 11/01/2014 YUMIKO MASSEY, SEBASTIAN Arvizu Ot 780.2 11/01/2014 YUMIKO MASSEY, SEBASTIAN A Ot 959.01 11/01/2014 YUMIKO MASSEY, SEBASTIAN A Ot E000.8 11/01/2014 YUMIKO MASSEY, SEBASTIAN Arvizu Ot E849.7 11/01/2014 YUMIKO MASSEY, SEBASTIAN A Ot E888.9 11/01/2014 JAYNASHIRA CONRAD Gen Ot 202.80 11/01/2014 LIZETTE LEDESMA MD Ot 433.10 11/01/2014 PAIGE MCLAIN SAMPLE CHECKER Ot 202.80 11/01/2014 PAIGE MCLAIN SAMPLE CHECKER Ot 244.9 11/01/2014 PAIGE MCLAIN SAMPLE CHECKER Ot 585.3 11/01/2014 PAIGE MCLAIN SAMPLE CHECKER Ot 780.4 11/01/2014 PAIGE MCLAIN SAMPLE CHECKER Ot 783.21 11/01/2014 PAIGE MCLAIN SAMPLE CHECKER Ot V15.3 11/01/2014 PAIGE MCLAIN SAMPLE CHECKER Ot V87.41 11/01/2014 PAIGE MCLAIN SAMPLE CHECKER Ot 202.80 11/01/2014 SEBASTIAN CALDERON MD Ot 272.4 11/01/2014 YUMIKO MASSEY, SEBASTIAN A Ot 401.9 11/01/2014 YUMIKO MASSEY, SEBASTIAN A Ot V58.69 11/01/2014 NATALIYATRAVON SAMPLE CHECKER Ot 719.45 11/01/2014 ANTRAVON SAMPLE CHECKER Ot 786.50 11/01/2014 NATALIYATRAVON SAMPLE CHECKER Ot E000.8 11/01/2014 NATALIYATRAVON SAMPLE CHECKER Ot E849.6 11/01/2014 ANTRAVON SAMPLE CHECKER Ot E888.9 11/01/2014 MCLAINPAIGE Matthews S SAMPLE CHECKER Ot 202.80 11/01/2014 MCLAINPAIGE Matthews S SAMPLE CHECKER Ot 244.9 11/01/2014 MCLAIN, HILAH S SAMPLE CHECKER Ot 250.00 11/01/2014 MCLAINPAIGE Matthews S SAMPLE CHECKER Ot 272.4 11/01/2014 MCLAINPAIGE Matthews S SAMPLE CHECKER Ot 356.9 11/01/2014 MCLAINPAIGE Mathtews S SAMPLE CHECKER Ot 403.90 11/01/2014 MCLAINPAIGE Matthews S SAMPLE CHECKER Ot 414.00 11/01/2014 MCLAINPAIGE Matthews S SAMPLE CHECKER Ot 585.3 11/01/2014 MCLAINPAIGE Matthews S SAMPLE CHECKER Ot 780.57 11/01/2014 MCLAINPAIGE Matthews S SAMPLE CHECKER Ot V15.3 11/01/2014 MCLAINPAIGE Matthews S SAMPLE CHECKER Ot V45.82 11/01/2014 MCLAINPAIGE S SAMPLE CHECKER Ot V58.67 11/01/2014 MCLAINPAIGE S SAMPLE CHECKER Ot V58.69 11/01/2014 MCLAINPAIGE Matthews S SAMPLE CHECKER Ot V87.41 11/01/2014 MCLAINPAIGE Matthews S SAMPLE CHECKER Ot 202.80 11/01/2014 SHIRA DORANTES Ot 202.80 11/01/2014 NATALIYA TRAVON Caputo SAMPLE CHECKER Ot 401.9 11/01/2014 NATALIYA TRAVON Caputo SAMPLE CHECKER Ot 518.0 11/01/2014 NICOLE MASSEY, CORY A Ot 591 11/01/2014 NICOLE MASSEY, CORY A Ot 599.70 11/01/2014 NICOLE MASSEY, CORY A Ot 600.00 11/01/2014 NICOLE MASSEY, CORY A Ot 257.2 11/01/2014 NICOLE MASSEY, CORY A Ot 599.70 11/01/2014 NICOLE MASSEY, CORY A Ot 600.00 11/01/2014 TRAVON AN SAMPLE CHECKER Ot 250.01 11/01/2014 MCLAINPAIGE Matthews S SAMPLE CHECKER Ot 202.80 11/01/2014 MCLAIN HILAH S SAMPLE CHECKER Ot 202.88 11/01/2014 MCLAIN HILAH S SAMPLE CHECKER Ot 244.9 11/01/2014 MCLAIN HILAH S SAMPLE CHECKER Ot 250.00 11/01/2014 MCLAIN HILAH S SAMPLE CHECKER Ot 414.00 11/01/2014 MCLAIN, HILAH S SAMPLE CHECKER Ot 585.3 11/01/2014 MCLAIN, HILAH S SAMPLE CHECKER Ot V45.82 11/01/2014 MCLAIN HILAH S SAMPLE CHECKER Ot V58.67 11/01/2014 MCLAIN PAIGE S SAMPLE CHECKER Ot V58.69 11/01/2014 YUMIKO MASSEY, SEBASTIAN A Ot V58.69 11/01/2014 YUMIKO MASSEY, SEBASTIAN A Ot V58.83 11/01/2014 MCLAIN PAIGE S SAMPLE CHECKER Ot 202.80 11/01/2014 MCLAIN PAIGE S SAMPLE CHECKER Ot 244.9 11/01/2014 MCLAIN HILAH S SAMPLE CHECKER Ot 250.00 11/01/2014 MCLAIN HILAH S SAMPLE CHECKER Ot 272.4 11/01/2014 MCLAIN PAIGE S SAMPLE CHECKER Ot 356.9 11/01/2014 MCLAIN PAIGE S SAMPLE CHECKER Ot 403.90 11/01/2014 MCLAIN HILAH S SAMPLE CHECKER Ot 414.00 11/01/2014 MCLAIN HILAH S SAMPLE CHECKER Ot 585.3 11/01/2014 MCLAIN HILAH S SAMPLE CHECKER Ot 780.57 11/01/2014 MCLAIN HILAH S SAMPLE CHECKER Ot V45.82 11/01/2014 MCLAIN, HILAH S SAMPLE CHECKER Ot V58.67 11/01/2014 MCLAIN, HILAH S SAMPLE CHECKER Ot V58.69 11/01/2014 TRAVON AN SAMPLE CHECKER Ot 250.01 11/01/2014 TRAVON AN SAMPLE CHECKER Ot 272.4 11/01/2014 TRAVON AN SAMPLE CHECKER Ot 401.9 11/01/2014 YUMIKO MASSEY, SEBASTIAN A Ot 250.01 11/01/2014 YUMIKO MASSEY, SEBASTIAN A Ot V58.69 11/01/2014 YUMIKO MASSEY, SEBASTIAN A Ot V58.83 11/01/2014 YUMIKO MASSEY, SEBASTIAN A Ot 285.9 11/01/2014 YUMIKO MASSEY, SEBASTIAN A Ot 786.2 11/01/2014 YUMIKO MASSEY, SEBASTIAN A Ot 786.2 11/01/2014 NATALIYA TRAVON M SAMPLE CHECKER Ot 285.9 11/01/2014 NATALIYA TRAVON Caputo SAMPLE CHECKER Ot 288.60 11/01/2014 YUMIKO MASSEY, SEBASTIAN A Ot 285.9 11/01/2014 YUMIKO MASSEY, SEBASTIAN A Ot 490 11/01/2014 YUMIKO MASSEY, SEBASTIAN A Ot 780.79 11/01/2014 ABRAHAM MARC DO Ot V72.84 11/01/2014 TIESHA LOVE K Ot 250.92 11/01/2014 TIESHA LOVE K Ot 272.4 11/01/2014 JIM LOVETH K Ot 401.9 11/01/2014 JIM LOVETH K Ot 414.01 11/01/2014 PAIGE MCLAIN SAMPLE CHECKER Ot 202.88 11/01/2014 PAIGE MCLAIN SAMPLE CHECKER Ot 244.9 11/01/2014 PAIGE MCLAIN SAMPLE CHECKER Ot 250.00 11/01/2014 PAIGE MCLAIN SAMPLE CHECKER Ot 414.00 11/01/2014 PAIGE MCLAIN SAMPLE CHECKER Ot 585.3 11/01/2014 PAIGE MCLAIN SAMPLE CHECKER Ot V58.67 11/01/2014 PAIGE MCLAIN SAMPLE CHECKER Ot V58.69 11/01/2014 PAIGE MCLAIN SAMPLE CHECKER Ot 202.80 11/01/2014 VIKTOR MASSEY, TEDDY Andres Ot 272.4 11/01/2014 VIKTOR MASSEY, TEDDY Andres Ot 401.9 11/01/2014 VIKTOR MASSEY, TEDDY Andres Ot 414.00 11/01/2014 VIKTOR MASSEY, TEDDY Andres Ot 780.2 11/01/2014 VIKTOR MASSEY, TEDDY Andres Ot 401.9 11/01/2014 VIKTOR MASSYE, TEDDY Andres Ot 414.00 11/01/2014 VIKTOR MASSEY, TEDDY Andres Ot 780.2 11/01/2014 PAIGE MCLAIN SAMPLE CHECKER Ot 202.80 11/01/2014 Ot 202.88 11/01/2014 Ot 244.9 11/01/2014 Ot 250.00 11/01/2014 Ot 414.00 11/01/2014 Ot 784.0 11/01/2014 Ot V45.82 11/01/2014 Ot V58.67 11/01/2014 Ot V58.69 11/01/2014 JAYNA, BOBAN N Ot 202.80 11/01/2014 JAYNA, BOBAN N Ot 244.9 11/01/2014 JAYNA, BOBAN N Ot 250.00 11/01/2014 JAYNA, BOBAN N Ot 414.01 11/01/2014 JAYNA, BOBAN N Ot 585.3 11/01/2014 JAYNA, BOBAN N Ot V45.82 11/01/2014 JAYNA, BOBAN N Ot V58.67 11/01/2014 Ot 593.89 11/01/2014 Ot 789.00 11/01/2014 JAYNA, BOBAN N Ot 202.80 11/01/2014 NICOLE MASSEY, CORY Arvizu Ot 593.9 11/01/2014 TRAVON AN SAMPLE CHECKER Ot 721.0 11/01/2014 TRAVON AN SAMPLE CHECKER Ot 721.3 11/01/2014 TRAVON AN SAMPLE CHECKER Ot E000.8 11/01/2014 TRAVON AN SAMPLE CHECKER Ot E819.9 11/01/2014 TRAVON AN SAMPLE CHECKER Ot 250.00 11/01/2014 TRAVON AN SAMPLE CHECKER Ot 787.01 11/01/2014 Ot 202.80 11/01/2014 Ot 250.00 11/01/2014 Ot 401.9 11/01/2014 Ot 780.79 11/01/2014 Ot 784.0 11/01/2014 Ot 787.02 11/01/2014 Ot V45.82 11/01/2014 Ot V57.89 11/01/2014 TRAVON AN SAMPLE CHECKER Ot 250.00 11/01/2014 TRAVON AN SAMPLE CHECKER Ot 458.9 11/01/2014 EMORY ANIE M SAMPLE CHECKER Ot 585.4 11/01/2014 TRAVON AN SAMPLE CHECKER Ot 780.4 11/01/2014 MARCIAL DO, DAVID M Ot 327.23 11/01/2014 MARCIAL DO, DAVID M Ot 486 11/01/2014 MARCIAL DO, DAVID M Ot 327.23 11/01/2014 MARCIAL DO, DAVID M Ot 486 11/01/2014 MARCIAL DO, DAVID M Ot 786.09 11/01/2014 MARCIAL DO, DAVID M Ot 327.23 11/01/2014 MARCIAL DO, DAVID M Ot 486 11/01/2014 MARCIAL DO, DAVID M Ot 786.09 11/01/2014 MARCIAL , DAVID M Ot 786.2 11/01/2014 NATALIYATRAVON SAMPLE CHECKER Ot 401.9 11/01/2014 NATALIYATRAVON SAMPLE CHECKER Ot 250.01 11/01/2014 NATALIYATRAVON SAMPLE CHECKER Ot 401.9 11/01/2014 NATALIYATRAVON SAMPLE CHECKER Ot V58.69 11/01/2014 NATALIYATRAVON SAMPLE CHECKER Ot V72.62 11/01/2014 OTHER, UNLISTED Ot 250.00 11/01/2014 OTHER, UNLISTED Ot 401.9 11/01/2014 OTHER, UNLISTED Ot 491.21 11/01/2014 OTHER, UNLISTED Ot 593.9 11/01/2014 YOBANI MASSEY, GEOVANNA Jaquez Ot 250.80 11/01/2014 YOBANI MASSEY, GEOVANNA Jaquez Ot 707.14 11/01/2014 YOBANI MASSEY, GEOVANNA Jaquez Ot 443.9 11/01/2014 YOBANI MASSEY, GEOVANNA Jaquez Ot 707.15 11/01/2014 ROSS QUIÑONES ELECTRIC FRYING PAN REPAIRER-C Ot 403.10 11/01/2014 [place] ELECTRIC FRYING PAN REPAIRER-C Ot 584.9 11/01/2014 ROSS QUIÑONES ELECTRIC FRYING PAN REPAIRER-C Ot 585.4 11/01/2014 ROSS QUIÑONES ELECTRIC FRYING PAN REPAIRER-C Ot 782.3 11/01/2014 YUMIKO MASSEY, SEBASTIAN Arvizu Ot 244.9 11/01/2014 YUMIKO MASSEY, SEBASTIAN Arvizu Ot 250.02 11/01/2014 SEBASTIAN CALDERON MD Ot 401.9 11/01/2014 JAYNA, BOBAN N Ot 202.80 11/01/2014 JAYNA, BOBAN N Ot 244.9 11/01/2014 JAYNA, BOBAN N Ot 250.00 11/01/2014 JAYNA, BOBAN N Ot 272.4 11/01/2014 JAYNA, BOBAN N Ot 285.21 11/01/2014 JAYNA, BOBAN N Ot 356.9 11/01/2014 JAYNA, BOBAN N Ot 403.90 11/01/2014 JAYNA, BOBAN N Ot 414.00 11/01/2014 JAYNA, BOBAN N Ot 585.3 11/01/2014 JAYNA, BOBAN N Ot 585.4 11/01/2014 JAYNA, BOBAN N Ot 780.57 11/01/2014 JAYNA, BOBAN N Ot V45.82 11/01/2014 JAYNA, BOBAN N Ot V58.67 11/01/2014 JAYNA, BOBAN N Ot V58.69 11/01/2014 YUMIKO MASSEY, SEBASTIAN Arvizu Ot 458.9 11/01/2014 YUMIKO MASSEY, SEBASTIAN Arvizu Ot 586 11/01/2014 ROSS QUIÑONES ELECTRIC FRYING PAN REPAIRER-C Ot 403.10 11/01/2014 ROSS QUIÑONES ELECTRIC FRYING PAN REPAIRER-C Ot 584.9 11/01/2014 ROSS QUIÑONES ELECTRIC FRYING PAN REPAIRER-C Ot 585.4 11/01/2014 ROSS QUIÑONES ELECTRIC FRYING PAN REPAIRER-C Ot 782.3 11/07/2014 YOBANI MASSEY, GEOVANNA Jaquez Ot 250.80 DIAB W OTH SPEC MANIFEST, TYPE II OR UNS 11/07/2014 GEOVANNA HILTON MD Ot 707.14 ULCER OF HEEL AND MIDFOOT 11/07/2014 GEOVANNA HILTON MD Ot L97.409 NON-PRS CHRONIC ULCER OF UNSP HEEL AND M 11/10/2014 CELESTINE MASSEY, MARKY Caputo Ot 585.3 11/10/2014 CELESTINE MASSEY, MARKY Caputo Ot 585.3 11/10/2014 KASSY SPRAGUE MD Ot 585.3 11/10/2014 YUMIKO MASSEY, SEBASTIAN Arvizu Ot 244.9 11/10/2014 YUMIKO MASSEY, SEBASTIAN Arvizu Ot 250.02 11/10/2014 YUMIKO MASSEY, SEBASTIAN Arvizu Ot 401.9 11/10/2014 CELESTINE MASSEY, MARKY Caputo Ot 585.3 11/16/2014 SHIRA DORANTES Ot 202.80 OTH LYMPHOMAS EXTRANODAL SOLID ORGAN U 11/16/2014 SHIRA DORANTES N Ot 244.9 HYPOTHYROIDISM NOS 11/16/2014 SHIRA DORANTES N Ot 250.00 DIAB CÉSAR WO COMPL, TYPE II OR UNSPEC TY 11/16/2014 SHIRA DORANTES N Ot 272.4 HYPERLIPIDEMIA NEC/NOS 11/16/2014 SHIRA DORANTES N Ot 285.21 ANEMIA IN CHRONIC KIDNEY DISEASE 11/16/2014 SHIRA DORANTES N Ot 356.9 IDIO PERIPH NEURPTHY NOS 11/16/2014 SHIRA DORANTES N Ot 403.90 HYPTNSV CHR KID DIS, UNSPEC, W CHR KD ST 11/16/2014 SHIRA DORANTES N Ot 414.00 CORON ATHEROSCLER NOS TYPE VESSEL, NATIV 11/16/2014 SHIRA DORANTES N Ot 585.3 CHRONIC KIDNEY DISEASE, STAGE III (MODER 11/16/2014 SHIRA DORANTES N Ot 585.4 CHRONIC KIDNEY DISEASE, STAGE IV (SEVERE 11/16/2014 SHIRA DORANTES N Ot 780.57 UNSPECIFIED SLEEP APNEA 11/16/2014 SHIRA DORANTES N Ot V45.82 PERCUTANEOUS TRANSLUM CORON ANGIOPLASTY 11/16/2014 SHIRA DORANTES N Ot V58.67 LONG-TERM (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 11/16/2014 SHIRA DORANTES N Ot V58.69 OTH MED,LT,CURRENT USE 11/24/2014 TRAVON AN SAMPLE CHECKER Ot E03.9 11/24/2014 TRAVON AN SAMPLE CHECKER Ot E11.65 11/24/2014 TRAVON AN SAMPLE CHECKER Ot N18.4 11/29/2014 ABRAHAM MARC DO Ot E11.9 TYPE 2 DIABETES MELLITUS WITHOUT COMPLIC 11/29/2014 ABRAHAM MARC DO Ot R93.3 ABNORMAL FINDINGS ON DX IMAGING OF PRT D 11/30/2014 PAIGE MCLAIN SAMPLE CHECKER Ot 202.80 11/30/2014 PAIGE MCLAIN SAMPLE CHECKER Ot 244.9 11/30/2014 PAIGE MCLAIN SAMPLE CHECKER Ot 250.40 11/30/2014 PAIGE MCLAIN SAMPLE CHECKER Ot 250.60 11/30/2014 MCLAINPAIGE Matthews S SAMPLE CHECKER Ot 285.21 11/30/2014 MCLAINPAIGE Matthews S SAMPLE CHECKER Ot 357.2 11/30/2014 MCLAINPAIGE Matthews S SAMPLE CHECKER Ot 583.81 11/30/2014 PAIGE MCLAIN S SAMPLE CHECKER Ot 585.4 11/30/2014 MCLAINPAIGE Matthews S SAMPLE CHECKER Ot 780.4 11/30/2014 MCLAIN, HIL S SAMPLE CHECKER Ot 784.0 11/30/2014 MCLAIN, HIL S SAMPLE CHECKER Ot 785.6 11/30/2014 MCLAINPAIGE Matthews S SAMPLE CHECKER Ot V15.3 11/30/2014 MCLAINPAIGE Matthews S SAMPLE CHECKER Ot V58.67 11/30/2014 MCLAINPAIGE S SAMPLE CHECKER Ot V58.69 11/30/2014 MCLAINPAIGE Matthews S SAMPLE CHECKER Ot 202.80 11/30/2014 MCLAINPAIGE Matthews S SAMPLE CHECKER Ot 780.4 11/30/2014 MCLAIN, HIL S SAMPLE CHECKER Ot 784.0 11/30/2014 MCLAIN, HIL S SAMPLE CHECKER Ot 785.6 12/08/2014 MCLAIN, HIL S SAMPLE CHECKER Ot 202.80 12/08/2014 MCLAIN, HIL S SAMPLE CHECKER Ot 244.9 12/08/2014 MCLAINPAIGE Matthews S SAMPLE CHECKER Ot 250.40 12/08/2014 MCLAINPAIGE Matthews S SAMPLE CHECKER Ot 250.60 12/08/2014 MCLAINPAIGE Matthews S SAMPLE CHECKER Ot 285.21 12/08/2014 MCLAINPAIGE Matthews S SAMPLE CHECKER Ot 357.2 12/08/2014 MCLAINPAIGE Matthews S SAMPLE CHECKER Ot 583.81 12/08/2014 MCLAINPAIGE Matthews S SAMPLE CHECKER Ot 585.4 12/08/2014 MCLAIN, [facility] S SAMPLE CHECKER Ot 780.4 12/08/2014 MCLAIN, HIL S SAMPLE CHECKER Ot 784.0 12/08/2014 MCLAINCYNTHIA S SAMPLE CHECKER Ot 785.6 12/08/2014 MCLAINPAIGE S SAMPLE CHECKER Ot V15.3 12/08/2014 CHEMOCYNTHIA S SAMPLE CHECKER Ot V58.67 12/08/2014 CHEMO CYNTHIA S SAMPLE CHECKER Ot V58.69 12/12/2014 PAIGE MCLAIN SAMPLE CHECKER Ot 202.80 12/12/2014 PAIGE MCLAIN SAMPLE CHECKER Ot 780.4 12/12/2014 PAIGE MCLAIN SAMPLE CHECKER Ot 784.0 12/12/2014 PAIGE MCLAIN SAMPLE CHECKER Ot 785.6 12/12/2014 CELESTINE MASSEY, MARKY M Ot N18.3 12/12/2014 TRAVON AN Harshal SAMPLE CHECKER Ot E03.9 12/12/2014 TRAVON AN SAMPLE CHECKER Ot E11.65 12/12/2014 NATALIYA TRAVON Caputo SAMPLE CHECKER Ot N18.4 12/14/2014 CELESTINE MASSEY, MARKY M Ot N18.4 12/14/2014 CELESTINE MASSEY, MARKY M Ot N18.3 12/16/2014 JAYNA, BOBAN N Ot 202.80 12/16/2014 JAYNA, BOBAN N Ot 244.9 12/16/2014 JAYNA, BOBAN N Ot 250.00 12/16/2014 JAYNA, BOBAN N Ot 272.4 12/16/2014 JAYNA, BOBAN N Ot 285.21 12/16/2014 JAYNA, BOBAN N Ot 356.9 12/16/2014 JAYNA, BOBAN N Ot 403.90 12/16/2014 JAYNA, BOBAN N Ot 414.00 12/16/2014 JAYNA, BOBAN N Ot 585.3 12/16/2014 JAYNA, BOBAN N Ot 585.4 12/16/2014 JAYNA, BOBAN N Ot 780.57 12/16/2014 JAYNA, BOBAN N Ot V45.82 12/16/2014 JAYNA, BOBAN N Ot V58.67 12/16/2014 JAYNA, BOBAN N Ot V58.69 12/23/2014 JAYNA, BOBAN N Ot 202.80 12/23/2014 JAYNA, BOBAN N Ot 244.9 12/23/2014 JAYNA, BOBAN N Ot 250.00 12/23/2014 JAYNA, BOBAN N Ot 272.4 12/23/2014 JAYNA, BOBAN N Ot 285.21 12/23/2014 JAYNA, BOBAN N Ot 356.9 12/23/2014 JAYNA, BOBAN N Ot 403.90 12/23/2014 JAYNA, BOBAN N Ot 414.00 12/23/2014 SHIRA DORANTES N Ot 585.3 12/23/2014 SHIRA DORANTES N Ot 585.4 12/23/2014 SHIRA DORANTES N Ot 780.57 12/23/2014 SHIRA DORANTES Gen Ot C85.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, UNSPE 12/23/2014 SHIRA DORANTES N Ot D63.1 ANEMIA IN CHRONIC KIDNEY DISEASE 12/23/2014 SHIRA DORANTES N Ot E03.9 HYPOTHYROIDISM, UNSPECIFIED 12/23/2014 SHIRA DORANTES N Ot E11.9 TYPE 2 DIABETES MELLITUS WITHOUT COMPLIC 12/23/2014 SHIRA DORANTES N Ot E78.5 HYPERLIPIDEMIA, UNSPECIFIED 12/23/2014 SHIRA DORANTES N Ot G47.30 SLEEP APNEA, UNSPECIFIED 12/23/2014 SHIRA DORANTES N Ot G60.9 HEREDITARY AND IDIOPATHIC NEUROPATHY, UN 12/23/2014 SHIRA DORANTES N Ot I12.9 HYPERTENSIVE CHRONIC KIDNEY DISEASE W ST 12/23/2014 SHIRA DORANTES N Ot I25.10 ATHSCL HEART DISEASE OF [place] CORONARY 12/23/2014 SHIRA DORANTES N Ot N18.4 CHRONIC KIDNEY DISEASE, STAGE 4 (SEVERE) 12/23/2014 SHIRA DORANTES N Ot V45.82 12/23/2014 SHIRA DORANTES N Ot V58.67 12/23/2014 SHIRA DORANTES N Ot V58.69 12/23/2014 SHIRA DORANTES N Ot 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 12/23/2014 SHIRA DORANTES N Ot Z79.899 OTHER PENITENTIARY (CURRENT) DRUG THERAPY 12/23/2014 SHIRA DORANTES N Ot Z98.61 CORONARY ANGIOPLASTY STATUS 12/23/2014 Ot 202.88 12/23/2014 Ot 244.9 12/23/2014 Ot 250.00 12/23/2014 Ot 414.00 12/23/2014 Ot 784.0 12/23/2014 Ot V45.82 12/23/2014 Ot V58.67 12/23/2014 Ot V58.69 12/23/2014 JAYNA SHIRA N Ot 202.80 12/23/2014 CORY RIVERA MD Ot 593.9 12/23/2014 TRAVON AN SAMPLE CHECKER Ot 721.0 12/23/2014 ANTRAVON SAMPLE CHECKER Ot 721.3 12/23/2014 ANTRAVON SAMPLE CHECKER Ot E000.8 12/23/2014 ANTRAVON SAMPLE CHECKER Ot E819.9 12/23/2014 NATALIYATRAVON SAMPLE CHECKER Ot 250.00 12/23/2014 NATALIYATRAVON SAMPLE CHECKER Ot 787.01 12/23/2014 Ot 202.80 12/23/2014 Ot 250.00 12/23/2014 Ot 401.9 12/23/2014 Ot 780.79 12/23/2014 Ot 784.0 12/23/2014 Ot 787.02 12/23/2014 Ot V45.82 12/23/2014 Ot V57.89 12/23/2014 NATALIYA TRAVON SIMENTALP Ot 250.00 12/23/2014 NATALIYA TRAVON Caputo SAMPLE CHECKER Ot 458.9 12/23/2014 NATALIYATRAVON SAMPLE CHECKER Ot 585.4 12/23/2014 NATALIYATRAVON SAMPLE CHECKER Ot 780.4 12/23/2014 MITCH CEJA DOSON M Ot 327.23 12/23/2014 MARCIAL DO, DAVID M Ot 486 12/23/2014 MARCIAL DO, DAVID M Ot 327.23 12/23/2014 MARCIAL DO, DAVID M Ot 486 12/23/2014 MARCIAL DO, DAVID M Ot 786.09 12/23/2014 MARCIAL DOMITCHDAVID M Ot 327.23 12/23/2014 MARCIAL DO, DAVID M Ot 486 12/23/2014 MARCIAL DO, DAVID M Ot 786.09 12/23/2014 MACRIAL DOMITCHDAVID M Ot 786.2 12/23/2014 NATALIYATRAVON SAMPLE CHECKER Ot 401.9 12/23/2014 NATALIYATRAVON SAMPLE CHECKER Ot 250.01 12/23/2014 NATALIYA TRAVON Caputo SAMPLE CHECKER Ot 401.9 12/23/2014 NATALIYA TRAVON Caputo SAMPLE CHECKER Ot V58.69 12/23/2014 NATALIYA TRAVON Caputo SAMPLE CHECKER Ot V72.62 12/23/2014 OTHER, UNLISTED Ot 250.00 12/23/2014 OTHER, UNLISTED Ot 401.9 12/23/2014 OTHER, UNLISTED Ot 491.21 12/23/2014 OTHER, UNLISTED Ot 593.9 12/23/2014 YOBANI MASSEY, GEOVANNA Jaquez Ot 443.9 12/23/2014 YOBANI MASSEY, GEOVANNA Jaquez Ot 707.15 12/23/2014 NURIAROSS ELECTRIC FRYING PAN REPAIRER-C Ot 403.10 12/23/2014 NURIA, ROSS Caputo ELECTRIC FRYING PAN REPAIRER-C Ot 584.9 12/23/2014 NURIA, ROSS Caputo ELECTRIC FRYING PAN REPAIRER-C Ot 585.4 12/23/2014 NURIA, ROSS Caputo ELECTRIC FRYING PAN REPAIRER-C Ot 782.3 12/23/2014 YUMIKO MASSEY, SEBASTIAN A Ot 244.9 12/23/2014 YUMIKO MASSEY, SEBASTIAN A Ot 250.02 12/23/2014 YUMIKO MASSEY, SEBASTIAN A Ot 401.9 12/23/2014 YUMIKO MASSEY, SEBASTIAN A Ot 458.9 12/23/2014 YUMIKO MASSEY, SEBASTIAN A Ot 586 12/23/2014 PAIGE MCLAIN S SAMPLE CHECKER Ot 202.80 12/23/2014 PAIGE MCLAIN S SAMPLE CHECKER Ot 244.9 12/23/2014 CYNTHIA MCLAIN S SAMPLE CHECKER Ot 250.40 12/23/2014 CYNTHIA MCLAIN S SAMPLE CHECKER Ot 250.60 12/23/2014 PAIGE MCLAIN S SAMPLE CHECKER Ot 285.21 12/23/2014 CYNTHIA MCLAINBRODIE S SAMPLE CHECKER Ot 357.2 12/23/2014 CYNTHIA MCLIANAH S SAMPLE CHECKER Ot 583.81 12/23/2014 CYNTHIA MCLAINAH S SAMPLE CHECKER Ot 585.4 12/23/2014 CHEMO CYNTHIAAH S SAMPLE CHECKER Ot 780.4 12/23/2014 CHEMO CYNTHIAAH S SAMPLE CHECKER Ot 784.0 12/23/2014 CYNTHIA MCLAINAH S SAMPLE CHECKER Ot 785.6 12/23/2014 CYNTHIA MCLAINAH S SAMPLE CHECKER Ot V15.3 12/23/2014 CYNTHIA MCLAINAH S SAMPLE CHECKER Ot V58.67 12/23/2014 PAIGE MCLAIN S SAMPLE CHECKER Ot V58.69 12/23/2014 CELESTINE MASSEY, MARKY Caputo Ot 585.3 12/23/2014 PAIGE MCLAIN S SAMPLE CHECKER Ot 202.80 12/23/2014 PAIGE MCLAIN SAMPLE CHECKER Ot 780.4 12/23/2014 PAIGE MCLAIN SAMPLE CHECKER Ot 784.0 12/23/2014 PAIGE MCLAIN SAMPLE CHECKER Ot 785.6 12/23/2014 FLORES MATTHEWS CLINICAL COORDINATOR Ot K59.00 12/23/2014 FLORES MATTHEWS CLINICAL COORDINATOR Ot R11.0 12/23/2014 FLORES MATTHEWS CLINICAL COORDINATOR Ot R19.12 12/23/2014 [facility] R[facility].5 12/23/2014 [facility] Ot Z01.818 12/23/2014 TRAVON AN SAMPLE CHECKER Ot E03.9 12/23/2014 TRAVON AN SAMPLE CHECKER Ot E11.65 12/23/2014 TRAVON AN SAMPLE CHECKER Ot N18.4 12/23/2014 CELESTINE MASSEY, MARKY Caputo Ot N18.3 12/23/2014 CELESTINE MASSEY, MARKY Caputo Ot N18.4 12/23/2014 JAYNA, BOBAN N Ot 202.80 12/23/2014 JAYNA, BOBAN N Ot 244.9 12/23/2014 JAYNA, BOBAN N Ot 250.00 12/23/2014 JAYNA, BOBAN N Ot 272.4 12/23/2014 JAYNA, BOBAN N Ot 285.21 12/23/2014 JAYNA, BOBAN N Ot 356.9 12/23/2014 JAYNA, BOBAN N Ot 403.90 12/23/2014 JAYNA, BOBAN N Ot 414.00 12/23/2014 JAYNA, BOBAN N Ot 585.3 12/23/2014 JAYNA, BOBAN N Ot 585.4 12/23/2014 JAYNA, BOBAN N Ot 780.57 12/23/2014 JAYNA, BOBAN N Ot V45.82 12/23/2014 JAYNA, BOBAN N Ot V58.67 12/23/2014 JAYNA, BOBAN N Ot V58.69 12/26/2014 JAYNA, BOBAN N Ot 202.80 12/26/2014 JAYNA, BOBAN N Ot 244.9 12/26/2014 JAYNA, BOBAN N Ot 250.00 12/26/2014 JAYNA, BOBAN N Ot 272.4 12/26/2014 SHIRA DORANTES Ot 285.21 12/26/2014 SHIRA DORANTES Ot 356.9 12/26/2014 SHIRA DORANTES Ot 403.90 12/26/2014 SHIRA DORANTES Ot 414.00 12/26/2014 SHIRA DORANTES Ot 585.3 12/26/2014 SHIRA DORANTES Ot 585.4 12/26/2014 SHIRA DORANTES Ot 780.57 12/26/2014 SHIRA DORANTES Ot V45.82 12/26/2014 SHIRA DORANTES Ot V58.67 12/26/2014 SHIRA DORANTES Ot V58.69 01/04/2015 Ot 241.0 01/04/2015 Ot 784.2 01/04/2015 Ot 785.6 01/04/2015 Ot 785.6 01/04/2015 Ot 784.2 01/04/2015 Ot V72.84 01/04/2015 Ot V74.8 01/04/2015 Ot 202.80 01/04/2015 Ot 202.80 01/04/2015 Ot V72.84 01/04/2015 Ot 202.80 01/04/2015 Ot 250.00 01/04/2015 Ot 202.88 01/04/2015 Ot 250.02 01/04/2015 Ot 272.4 01/04/2015 Ot 401.9 01/04/2015 Ot 202.80 01/04/2015 Ot 786.05 01/04/2015 Ot 202.80 01/04/2015 Ot 202.80 01/04/2015 Ot 250.01 01/04/2015 Ot 202.81 01/04/2015 Ot 244.9 01/04/2015 Ot 250.00 01/04/2015 Ot 272.4 01/04/2015 Ot 414.00 01/04/2015 Ot 585.3 01/04/2015 Ot V15.3 01/04/2015 Ot V45.82 01/04/2015 Ot V58.67 01/04/2015 Ot V58.69 01/04/2015 Ot V87.41 01/04/2015 Ot 202.80 01/04/2015 SHIRA DORANTES Ot 202.80 01/04/2015 Ot 397.0 01/04/2015 Ot 401.9 01/04/2015 Ot 414.00 01/04/2015 Ot 424.0 01/04/2015 Ot 786.09 01/04/2015 Ot 401.9 01/04/2015 Ot 414.00 01/04/2015 Ot 786.09 01/04/2015 Ot 244.9 01/04/2015 Ot 250.03 01/04/2015 Ot 401.9 01/04/2015 Ot 272.4 01/04/2015 Ot 401.9 01/04/2015 Ot 414.00 01/04/2015 YUMIKO MASSEY, SEBASTIAN Arvizu Ot 433.10 01/04/2015 YUMIKO MASSEY, SEBASTIAN A Ot 780.2 01/04/2015 YUMIKO MASSEY, SEBASTIAN A Ot 959.01 01/04/2015 YUMIKO MASSEY, SEBASTIAN A Ot E000.8 01/04/2015 YUMIKO MASSEY, SEBASTIAN A Ot E849.7 01/04/2015 YUMIKO MASSEY, SEBASTIAN A Ot E888.9 01/04/2015 SHIRA DORANTES Ot 202.80 01/04/2015 BALTAZAR MASSEY, LIZETTE Caputo Ot 433.10 01/04/2015 PAIGE MCLAIN SAMPLE CHECKER Ot 202.80 01/04/2015 PAIGE MCLAIN SAMPLE CHECKER Ot 244.9 01/04/2015 PAIGE MCLAIN SAMPLE CHECKER Ot 585.3 01/04/2015 PAIGE MCLAIN SAMPLE CHECKER Ot 780.4 01/04/2015 PAIGE MCLAIN SAMPLE CHECKER Ot 783.21 01/04/2015 PAIGE MCLAIN SAMPLE CHECKER Ot V15.3 01/04/2015 PAIGE MCLAIN SAMPLE CHECKER Ot V87.41 01/04/2015 PAIGE MCLAIN SAMPLE CHECKER Ot 202.80 01/04/2015 YUMIKO MASSEY, SEBASTIAN Arvizu Ot 272.4 01/04/2015 YUMIKO MASSEY, SEBASTIAN A Ot 401.9 01/04/2015 YUMIKO MASSEY, SEBASTIAN A Ot V58.69 01/04/2015 TRAVON AN SAMPLE CHECKER Ot 719.45 01/04/2015 TRAVON AN SAMPLE CHECKER Ot 786.50 01/04/2015 TRAVON AN SAMPLE CHECKER Ot E000.8 01/04/2015 TRAVON AN SAMPLE CHECKER Ot E849.6 01/04/2015 TRAVON AN SAMPLE CHECKER Ot E888.9 01/04/2015 MCLAINPAIGE Matthews S SAMPLE CHECKER Ot 202.80 01/04/2015 MCLAINPAIGE Matthews S SAMPLE CHECKER Ot 244.9 01/04/2015 PAIGE MCLAIN S SAMPLE CHECKER Ot 250.00 01/04/2015 MCLAINPAIGE Matthews S SAMPLE CHECKER Ot 272.4 01/04/2015 MCLAINPAIGE Matthews S SAMPLE CHECKER Ot 356.9 01/04/2015 PAIGE MCLAIN S SAMPLE CHECKER Ot 403.90 01/04/2015 CYNTHIA MCLAINAH S SAMPLE CHECKER Ot 414.00 01/04/2015 MCLAINPAIGE Matthews S SAMPLE CHECKER Ot 585.3 01/04/2015 MCLAIN, HILAH S SAMPLE CHECKER Ot 780.57 01/04/2015 PAIGE MCLAIN S SAMPLE CHECKER Ot V15.3 01/04/2015 MCLAINPAIGE Matthews S SAMPLE CHECKER Ot V45.82 01/04/2015 MCLAINPAIGE Matthews S SAMPLE CHECKER Ot V58.67 01/04/2015 MCLAINPAIGE Matthews S SAMPLE CHECKER Ot V58.69 01/04/2015 MCLAINPAIGE Matthews S SAMPLE CHECKER Ot V87.41 01/04/2015 MCLAINPAIGE Matthews S SAMPLE CHECKER Ot 202.80 01/04/2015 SHIRA DORANTES Ot 202.80 01/04/2015 TRAVON AN SAMPLE CHECKER Ot 401.9 01/04/2015 TRAVON AN SAMPLE CHECKER Ot 518.0 01/04/2015 NICOLE MASSEY, CORY A Ot 591 01/04/2015 NICOLE MASSEY, CORY A Ot 599.70 01/04/2015 NICOLE MASSEY, CORY A Ot 600.00 01/04/2015 NICOLE MASSEY, CORY A Ot 257.2 01/04/2015 NICOLE MASSEY, CORY A Ot 599.70 01/04/2015 NICOLE MASSEY, CORY A Ot 600.00 01/04/2015 TRAVON AN SAMPLE CHECKER Ot 250.01 01/04/2015 CHEMO PAIGE S SAMPLE CHECKER Ot 202.80 01/04/2015 CHEMO PAIGE S SAMPLE CHECKER Ot 202.88 01/04/2015 MCLAINPAIGE Matthews S SAMPLE CHECKER Ot 244.9 01/04/2015 PAIGE MCLAIN S SAMPLE CHECKER Ot 250.00 01/04/2015 PAIGE MCLAIN S SAMPLE CHECKER Ot 414.00 01/04/2015 PAIGE MCLAIN S SAMPLE CHECKER Ot 585.3 01/04/2015 PAIGE MCLAIN S SAMPLE CHECKER Ot V45.82 01/04/2015 MCLAINPAIGE Matthews S SAMPLE CHECKER Ot V58.67 01/04/2015 MCLAINPAIGE S SAMPLE CHECKER Ot V58.69 01/04/2015 YUMIKO MASSEY, SEBASTIAN A Ot V58.69 01/04/2015 YUMIKO MASSEY, SEBASTIAN A Ot V58.83 01/04/2015 MCLAINPAIGE Matthews S SAMPLE CHECKER Ot 202.80 01/04/2015 PAIGE MCLAIN S SAMPLE CHECKER Ot 244.9 01/04/2015 PAIGE MCLAIN S SAMPLE CHECKER Ot 250.00 01/04/2015 MCLAINPAIGE Matthews S SAMPLE CHECKER Ot 272.4 01/04/2015 MCLAINPAIGE Matthews S SAMPLE CHECKER Ot 356.9 01/04/2015 MCLAINPAIGE Matthews S SAMPLE CHECKER Ot 403.90 01/04/2015 PAIGE MCLAIN S SAMPLE CHECKER Ot 414.00 01/04/2015 PAIGE MCLAIN S SAMPLE CHECKER Ot 585.3 01/04/2015 PAIGE MCLAIN S SAMPLE CHECKER Ot 780.57 01/04/2015 PAIGE MCLAIN S SAMPLE CHECKER Ot V45.82 01/04/2015 MCLAINPAIGE Matthews S SAMPLE CHECKER Ot V58.67 01/04/2015 MCLAINPAIGE Matthews S SAMPLE CHECKER Ot V58.69 01/04/2015 TRAVON AN SAMPLE CHECKER Ot 250.01 01/04/2015 TRAVON AN SAMPLE CHECKER Ot 272.4 01/04/2015 TRAVON AN SAMPLE CHECKER Ot 401.9 01/04/2015 YUMIKO MASSEY, SEBASTIAN A Ot 250.01 01/04/2015 YUMIKO MASSEY, SEBASTIAN A Ot V58.69 01/04/2015 YUMIKO MASSEY, SEBASTIAN A Ot V58.83 01/04/2015 YUMIKO MASSEY, SEBASTIAN A Ot 285.9 01/04/2015 YUMIKO MASSEY, SEBASTIAN A Ot 786.2 01/04/2015 YUMIKO MASSEY, SEBASTIAN A Ot 786.2 01/04/2015 TRAVON AN SAMPLE CHECKER Ot 285.9 01/04/2015 TRAVON AN SAMPLE CHECKER Ot 288.60 01/04/2015 YUMIKO MASSEY, SEBASTIAN Arvizu Ot 285.9 01/04/2015 YUMIKO MASSEY, SEBASTIAN Arvizu Ot 490 01/04/2015 YUMIKO MASSEY, SEBASTIAN Arvizu Ot 780.79 01/04/2015 MARC ABRAHAM LU Ot V72.84 01/04/2015 TIESHA LOVE Ot 250.92 01/04/2015 TIESHA LOVE K Ot 272.4 01/04/2015 TIESHA LOVE K Ot 401.9 01/04/2015 TIESHA LOVE K Ot 414.01 01/04/2015 PAIGE MCLAIN SAMPLE CHECKER Ot 202.88 01/04/2015 PAIGE MCLAIN SAMPLE CHECKER Ot 244.9 01/04/2015 PAIGE MCLAIN SAMPLE CHECKER Ot 250.00 01/04/2015 PAIGE MCLAIN SAMPLE CHECKER Ot 414.00 01/04/2015 PAIGE MCLAIN SAMPLE CHECKER Ot 585.3 01/04/2015 PAIGE MCLAIN SAMPLE CHECKER Ot V58.67 01/04/2015 PAIGE MCLAIN SAMPLE CHECKER Ot V58.69 01/04/2015 PAIGE MCLAIN SAMPLE CHECKER Ot 202.80 01/04/2015 VIKTOR MASSEY, TEDDY Andres Ot 272.4 01/04/2015 VIKTOR MASSEY, TEDDY Andres Ot 401.9 01/04/2015 VIKTOR MASSEY, TEDDY Andres Ot 414.00 01/04/2015 VIKTOR MASSEY, TEDDY Andres Ot 780.2 01/04/2015 VIKTOR MASSEY, TEDDY Andres Ot 401.9 01/04/2015 VIKTOR MASSEY, TEDDY Andres Ot 414.00 01/04/2015 VIKTOR MASSEY, TEDDY Andres Ot 780.2 01/04/2015 MCLAINPAIGE Matthews SAMPLE CHECKER Ot 202.80 01/04/2015 Ot 202.88 01/04/2015 Ot 244.9 01/04/2015 Ot 250.00 01/04/2015 Ot 414.00 01/04/2015 Ot 784.0 01/04/2015 Ot V45.82 01/04/2015 Ot V58.67 01/04/2015 Ot V58.69 01/04/2015 SHIRA DORANTES N Ot 202.80 01/04/2015 SHIRA DORANTES N Ot 244.9 01/04/2015 SHIRA DORANTES N Ot 250.00 01/04/2015 SHIRA DORANTES N Ot 414.01 01/04/2015 SHIRA DORANTES N Ot 585.3 01/04/2015 SHIRA DORANTES N Ot V45.82 01/04/2015 SHIRA DORANTES N Ot V58.67 01/04/2015 Ot 593.89 01/04/2015 Ot 789.00 01/04/2015 SHIRA DORANTES N Ot 202.80 01/04/2015 NICOLE MASSEY, CORY Arvizu Ot 593.9 01/04/2015 TRAVON AN SAMPLE CHECKER Ot 721.0 01/04/2015 TRAVON AN SAMPLE CHECKER Ot 721.3 01/04/2015 TRAVON AN SAMPLE CHECKER Ot E000.8 01/04/2015 TRAVON AN SAMPLE CHECKER Ot E819.9 01/04/2015 TRAVON AN SAMPLE CHECKER Ot 250.00 01/04/2015 TRAVON AN SAMPLE CHECKER Ot 787.01 01/04/2015 Ot 202.80 01/04/2015 Ot 250.00 01/04/2015 Ot 401.9 01/04/2015 Ot 780.79 01/04/2015 Ot 784.0 01/04/2015 Ot 787.02 01/04/2015 Ot V45.82 01/04/2015 Ot V57.89 01/04/2015 TRAVON AN SAMPLE CHECKER Ot 250.00 01/04/2015 TRAVON AN SAMPLE CHECKER Ot 458.9 01/04/2015 TRAVON AN SAMPLE CHECKER Ot 585.4 01/04/2015 TRAVON AN SAMPLE CHECKER Ot 780.4 01/04/2015 DAVID CEJA DO Ot 327.23 01/04/2015 DAVID CEJA DO Ot 486 01/04/2015 DAVID CEJA DO Ot 327.23 01/04/2015 DAVID CEJA DO Ot 486 01/04/2015 DAVID CEJA DO Ot 786.09 01/04/2015 DAVID CEJA DO Ot 327.23 01/04/2015 DAVID CEJA DO Ot 486 01/04/2015 DAVID CEJA DO Ot 786.09 01/04/2015 DAVID CEJA DO Ot 786.2 01/04/2015 TRAVON AN SAMPLE CHECKER Ot 401.9 01/04/2015 TRAVON AN SAMPLE CHECKER Ot 250.01 01/04/2015 ANTRAVON SAMPLE CHECKER Ot 401.9 01/04/2015 TRAVON AN SAMPLE CHECKER Ot V58.69 01/04/2015 TRAVON AN SAMPLE CHECKER Ot V72.62 01/04/2015 OTHER, UNLISTED Ot 250.00 01/04/2015 OTHER, UNLISTED Ot 401.9 01/04/2015 OTHER, UNLISTED Ot 491.21 01/04/2015 OTHER, UNLISTED Ot 593.9 01/04/2015 YOBANI MASSEY, GEOVANNA Jaquez Ot 443.9 01/04/2015 YOBANI MASSEY, GEOVANNA Jaquez Ot 707.15 01/04/2015 ROSS QUIÑONES ELECTRIC FRYING PAN REPAIRER-C Ot 403.10 01/04/2015 ROSS QUIÑONES ELECTRIC FRYING PAN REPAIRER-C Ot 584.9 01/04/2015 ROSS QUIÑONES ELECTRIC FRYING PAN REPAIRER-C Ot 585.4 01/04/2015 ROSS QUIÑONES ELECTRIC FRYING PAN REPAIRER-C Ot 782.3 01/04/2015 YUMIKO MASSEY, SEBASTIAN Arvizu Ot 244.9 01/04/2015 YUMIKO MASSEY, SEBASTIAN Arvizu Ot 250.02 01/04/2015 YUMIKO MASSEY, SEBASTIAN A Ot 401.9 01/04/2015 YUMIKO MASSEY, SEBASTIAN A Ot 458.9 01/04/2015 YUMIKO MASSEY, SEBASTIAN A Ot 586 01/04/2015 PAIGE MCLAIN SAMPLE CHECKER Ot 202.80 01/04/2015 PAIGE MCLAIN SAMPLE CHECKER Ot 244.9 01/04/2015 PAIGE MCLAIN SAMPLE CHECKER Ot 250.40 01/04/2015 PAIGE MCLAIN SAMPLE CHECKER Ot 250.60 01/04/2015 PAIGE MCLAIN SAMPLE CHECKER Ot 285.21 01/04/2015 PAIGE MCLAIN SAMPLE CHECKER Ot 357.2 01/04/2015 PAIGE MCLAIN SAMPLE CHECKER Ot 583.81 01/04/2015 PAIGE MCLAIN SAMPLE CHECKER Ot 585.4 01/04/2015 PAIGE MCLAIN S SAMPLE CHECKER Ot 780.4 01/04/2015 PAIGE MCLAIN S SAMPLE CHECKER Ot 784.0 01/04/2015 PAIGE MCLAIN S SAMPLE CHECKER Ot 785.6 01/04/2015 PAIGE MCLAIN S SAMPLE CHECKER Ot V15.3 01/04/2015 PAIGE MCLAIN S SAMPLE CHECKER Ot V58.67 01/04/2015 PAIGE MCLAIN S SAMPLE CHECKER Ot V58.69 01/04/2015 CELESTINE MASSEY, MARKY M Ot 585.3 01/04/2015 PAIGE MCLAIN SAMPLE CHECKER Ot 202.80 01/04/2015 PAIGE MCLAIN SAMPLE CHECKER Ot 780.4 01/04/2015 PAIGE MCLAIN SAMPLE CHECKER Ot 784.0 01/04/2015 PAIGE MCLAIN SAMPLE CHECKER Ot 785.6 01/04/2015 FLORES MATTHEWS CLINICAL COORDINATOR Ot K59.00 01/04/2015 FLORES MATTHEWS CLINICAL COORDINATOR Ot R11.0 01/04/2015 FLORES MATTHEWS CLINICAL COORDINATOR Ot R19.12 01/04/2015 ABRAHAM MARC DO Ot R93.5 01/04/2015 ABRAHAM MARC DO Ot Z01.818 01/04/2015 TRAVON AN SAMPLE CHECKER Ot E03.9 01/04/2015 TRAVON AN SAMPLE CHECKER Ot E11.65 01/04/2015 TRAVON AN SAMPLE CHECKER Ot N18.4 01/04/2015 CELESTINE MASSEY, MARKY M Ot N18.3 01/04/2015 CELESTINE MASSEY, MARKY M Ot N18.4 01/04/2015 TRAVON NA SAMPLE CHECKER Ot 721.0 01/04/2015 TRAVON AN SAMPLE CHECKER Ot 721.3 01/04/2015 TRAVON AN SAMPLE CHECKER Ot E000.8 01/04/2015 TRAVON AN SAMPLE CHECKER Ot E819.9 2015 YUMIKO MASSEY, SEBASTIAN Arvizu Ot 458.9 2015 YUMIKO MASSEY, SEBASTIAN Arvizu Ot 586 2015 FLORES MATTHEWS CLINICAL COORDINATOR Ot K59.00 2015 FLORES MATTHEWS CLINICAL COORDINATOR Ot R11.0 2015 FLORES MATTHEWS CLINICAL COORDINATOR Ot R19.12 01/17/2015 YUMIKO MASSEY, SEBASTIAN Arvizu Ot 458.9 01/17/2015 YUMIKO MASSEY, SEBASTIAN Arvizu Ot 586 01/17/2015 FLORES MATTHEWS CLINICAL COORDINATOR Ot K59.00 01/17/2015 FLORES MATTHEWS CLINICAL COORDINATOR Ot R11.0 01/17/2015 FLORES MATTHEWS CLINICAL COORDINATOR Ot R19.12 01/17/2015 Ot E87.5 01/17/2015 Ot I12.9 01/17/2015 Ot N18.4 01/17/2015 Ot R60.9 01/19/2015 Ot 241.0 01/19/2015 Ot 784.2 01/19/2015 Ot 785.6 01/19/2015 Ot 785.6 01/19/2015 Ot 784.2 01/19/2015 Ot V72.84 01/19/2015 Ot V74.8 01/19/2015 Ot 202.80 01/19/2015 Ot 202.80 01/19/2015 Ot V72.84 01/19/2015 Ot 202.80 01/19/2015 Ot 250.00 01/19/2015 Ot 202.88 01/19/2015 Ot 250.02 01/19/2015 Ot 272.4 01/19/2015 Ot 401.9 01/19/2015 Ot 202.80 01/19/2015 Ot 786.05 01/19/2015 Ot 202.80 01/19/2015 Ot 202.80 01/19/2015 Ot 250.01 01/19/2015 Ot 202.81 01/19/2015 Ot 244.9 01/19/2015 Ot 250.00 01/19/2015 Ot 272.4 01/19/2015 Ot 414.00 01/19/2015 Ot 585.3 01/19/2015 Ot V15.3 01/19/2015 Ot V45.82 01/19/2015 Ot V58.67 01/19/2015 Ot V58.69 01/19/2015 Ot V87.41 01/19/2015 Ot 202.80 01/19/2015 SHIRA DORANTES Ot 202.80 01/19/2015 Ot 397.0 01/19/2015 Ot 401.9 01/19/2015 Ot 414.00 01/19/2015 Ot 424.0 01/19/2015 Ot 786.09 01/19/2015 Ot 401.9 01/19/2015 Ot 414.00 01/19/2015 Ot 786.09 01/19/2015 Ot 244.9 01/19/2015 Ot 250.03 01/19/2015 Ot 401.9 01/19/2015 Ot 272.4 01/19/2015 Ot 401.9 01/19/2015 Ot 414.00 01/19/2015 YUMIKO MASSEY, SEBASTIAN Arvizu Ot 433.10 01/19/2015 YUMIKO MASSEY, SEBASTIAN Arvizu Ot 780.2 01/19/2015 YUMIKO MASSEY, SEBASTIAN Arvizu Ot 959.01 01/19/2015 YUMIKO MASSEY, SEBASTIAN Arvizu Ot E000.8 01/19/2015 YUMIKO MASSEY, SEBASTIAN Arvizu Ot E849.7 01/19/2015 YUMIKO MASSEY, SEBASTIAN Arvizu Ot E888.9 01/19/2015 SHIRA DORANTES Ot 202.80 01/19/2015 BALTAZAR MASSEY, LIZETTE Caputo Ot 433.10 01/19/2015 PAIGE MCLAIN SAMPLE CHECKER Ot 202.80 01/19/2015 PAIGE MCLAIN SAMPLE CHECKER Ot 244.9 01/19/2015 PAIGE MCLAIN SAMPLE CHECKER Ot 585.3 01/19/2015 PAIGE MCLAIN SAMPLE CHECKER Ot 780.4 01/19/2015 PAIGE MCLAIN SAMPLE CHECKER Ot 783.21 01/19/2015 PAIGE MCLAIN SAMPLE CHECKER Ot V15.3 01/19/2015 PAIGE MCLAIN S SAMPLE CHECKER Ot V87.41 01/19/2015 PAIGE MCLAIN SAMPLE CHECKER Ot 202.80 01/19/2015 YUMIKO MASSEY, SEBASTIAN Arvizu Ot 272.4 01/19/2015 YUMIKO MASSEY, SEBASTIAN Arvizu Ot 401.9 01/19/2015 SEBASTIAN CALDERON MD Ot V58.69 01/19/2015 TRAVON AN SAMPLE CHECKER Ot 719.45 01/19/2015 TRAVON AN SAMPLE CHECKER Ot 786.50 01/19/2015 TRAVON AN SAMPLE CHECKER Ot E000.8 01/19/2015 TRAVON AN SAMPLE CHECKER Ot E849.6 01/19/2015 TRAVON AN SAMPLE CHECKER Ot E888.9 01/19/2015 MCLAINPAIGE Matthews S SAMPLE CHECKER Ot 202.80 01/19/2015 MCLAINPAIGE Matthews S SAMPLE CHECKER Ot 244.9 01/19/2015 MCLAIN, HILAH S SAMPLE CHECKER Ot 250.00 01/19/2015 MCLAIN, HILAH S SAMPLE CHECKER Ot 272.4 01/19/2015 MCLAIN HILAH S SAMPLE CHECKER Ot 356.9 01/19/2015 MCLAIN HILAH S SAMPLE CHECKER Ot 403.90 01/19/2015 MCLAIN HILAH S SAMPLE CHECKER Ot 414.00 01/19/2015 MCLAIN HILAH S SAMPLE CHECKER Ot 585.3 01/19/2015 MCLAIN, HILAH S SAMPLE CHECKER Ot 780.57 01/19/2015 MCLAINPAIGE Matthews S SAMPLE CHECKER Ot V15.3 01/19/2015 MCLAINPAIGE Matthews S SAMPLE CHECKER Ot V45.82 01/19/2015 MCLAINPAIGE S SAMPLE CHECKER Ot V58.67 01/19/2015 MCLAINPAIGE S SAMPLE CHECKER Ot V58.69 01/19/2015 MCLAINPAIGE Matthews S SAMPLE CHECKER Ot V87.41 01/19/2015 MCLAINPAIGE Matthews S SAMPLE CHECKER Ot 202.80 01/19/2015 SHIRA DORANTES Ot 202.80 01/19/2015 TRAVON AN SAMPLE CHECKER Ot 401.9 01/19/2015 TRAVON AN SAMPLE CHECKER Ot 518.0 01/19/2015 NICOLE MASSEY, CORY A Ot 591 01/19/2015 NICOLE MASSEY, CORY A Ot 599.70 01/19/2015 NICOLE MASSEY, CORY A Ot 600.00 01/19/2015 NICOLE MASSEY, CORY A Ot 257.2 01/19/2015 NICOLE MASSEY, CORY A Ot 599.70 01/19/2015 NICOLE MASSEY, CORY A Ot 600.00 01/19/2015 TRAVON AN SAMPLE CHECKER Ot 250.01 01/19/2015 MCLAIN PAIGE S SAMPLE CHECKER Ot 202.80 01/19/2015 MCLAIN PAIGE S SAMPLE CHECKER Ot 202.88 01/19/2015 PAIGE MCLAIN S SAMPLE CHECKER Ot 244.9 01/19/2015 PAIGE MCLAIN S SAMPLE CHECKER Ot 250.00 01/19/2015 PAIGE MCLAIN S SAMPLE CHECKER Ot 414.00 01/19/2015 PAIGE MCLAIN S SAMPLE CHECKER Ot 585.3 01/19/2015 PAIGE MCLAIN S SAMPLE CHECKER Ot V45.82 01/19/2015 MCLAINPAIGE S SAMPLE CHECKER Ot V58.67 01/19/2015 MCLAINPAIGE S SAMPLE CHECKER Ot V58.69 01/19/2015 YUMIKO MASSEY, SEBASTIAN A Ot V58.69 01/19/2015 SEBASTIAN CALDERON MD A Ot V58.83 01/19/2015 MCLAINPAIGE Matthews S SAMPLE CHECKER Ot 202.80 01/19/2015 PAIGE MCLAIN S SAMPLE CHECKER Ot 244.9 01/19/2015 PAIGE MCLAIN S SAMPLE CHECKER Ot 250.00 01/19/2015 PAIGE MCLAIN S SAMPLE CHECKER Ot 272.4 01/19/2015 PAIGE MCLAIN S SAMPLE CHECKER Ot 356.9 01/19/2015 PAIGE MCLAIN S SAMPLE CHECKER Ot 403.90 01/19/2015 PAIGE MCLAIN S SAMPLE CHECKER Ot 414.00 01/19/2015 PAIGE MCLAIN S SAMPLE CHECKER Ot 585.3 01/19/2015 PAIGE MCLAIN S SAMPLE CHECKER Ot 780.57 01/19/2015 PAIGE MCLAIN S SAMPLE CHECKER Ot V45.82 01/19/2015 MCLAINPAIGE Matthews S SAMPLE CHECKER Ot V58.67 01/19/2015 MCLAINPAIGE Matthews S SAMPLE CHECKER Ot V58.69 01/19/2015 TRAVON AN SAMPLE CHECKER Ot 250.01 01/19/2015 TRAVON AN SAMPLE CHECKER Ot 272.4 01/19/2015 TRAVON AN SAMPLE CHECKER Ot 401.9 01/19/2015 YUMIKO MASSEY, SEBASTIAN Arvizu Ot 250.01 01/19/2015 SEBASTIAN CALDERON MD A Ot V58.69 01/19/2015 YUMIKO MASSEY, SEBASTIAN Arvizu Ot V58.83 01/19/2015 YUMIKO MASSEY, SEBASTIAN Arvizu Ot 285.9 01/19/2015 SEBASTIAN CALDERON MD Ot 786.2 01/19/2015 YUMIKO MASSEY, SEBASTIAN Arvizu Ot 786.2 01/19/2015 TRAVON AN SAMPLE CHECKER Ot 285.9 01/19/2015 TRAVON AN SAMPLE CHECKER Ot 288.60 01/19/2015 YUMIKO MASSEY, SEBASTIAN A Ot 285.9 01/19/2015 YUMIKO MASSEY, SEBASTIAN Arvizu Ot 490 01/19/2015 YUMIKO MASSEY, SEBASTIAN Arvizu Ot 780.79 01/19/2015 ABRAHAM MARC DO Ot V72.84 01/19/2015 TIESHA LOVE Ot 250.92 01/19/2015 TIESHA LOVE K Ot 272.4 01/19/2015 TIESHA LOVE K Ot 401.9 01/19/2015 TIESHA LOVE K Ot 414.01 01/19/2015 PAIGE MCLAIN SAMPLE CHECKER Ot 202.88 01/19/2015 PAIGE MCLAIN SAMPLE CHECKER Ot 244.9 01/19/2015 PAIGE MCLAIN SAMPLE CHECKER Ot 250.00 01/19/2015 PAIGE MCLAIN SAMPLE CHECKER Ot 414.00 01/19/2015 PAIGE MCLAIN SAMPLE CHECKER Ot 585.3 01/19/2015 PAIGE MCLAIN SAMPLE CHECKER Ot V58.67 01/19/2015 PAIGE MCLAIN S SAMPLE CHECKER Ot V58.69 01/19/2015 PAIGE MCLAIN SAMPLE CHECKER Ot 202.80 01/19/2015 VIKTOR MASSEY, TEDDY Andres Ot 272.4 01/19/2015 VIKTOR MASSEY, TEDDY Andres Ot 401.9 01/19/2015 VIKTOR MASSEY, TEDDY Andres Ot 414.00 01/19/2015 VIKTOR MASSEY, TEDDY Andres Ot 780.2 01/19/2015 VIKTOR MASSEY, TEDDY Andres Ot 401.9 01/19/2015 VIKTOR MASSEY, TEDDY Andres Ot 414.00 01/19/2015 VIKTOR MASSEY, TEDDY Andres Ot 780.2 01/19/2015 MCLAINPAIGE Matthews SAMPLE CHECKER Ot 202.80 01/19/2015 Ot 202.88 01/19/2015 Ot 244.9 01/19/2015 Ot 250.00 01/19/2015 Ot 414.00 01/19/2015 Ot 784.0 01/19/2015 Ot V45.82 01/19/2015 Ot V58.67 01/19/2015 Ot V58.69 01/19/2015 SHIRA DORANTES N Ot 202.80 01/19/2015 SHIRA DORANTES N Ot 244.9 01/19/2015 JAYNASHIRA CONRAD N Ot 250.00 01/19/2015 JAYNASHIRA CONRAD N Ot 414.01 01/19/2015 JAYNASHIRA CONRAD N Ot 585.3 01/19/2015 JAYNASHIRA CONRAD N Ot V45.82 01/19/2015 JAYNASHIRA CONRAD N Ot V58.67 01/19/2015 Ot 593.89 01/19/2015 Ot 789.00 01/19/2015 SHIRA DORANTES N Ot 202.80 01/19/2015 CORY RIVERA MD Ot 593.9 01/19/2015 TRAVON AN SAMPLE CHECKER Ot 721.0 01/19/2015 TRAVON AN SAMPLE CHECKER Ot 721.3 01/19/2015 TRAVON AN SAMPLE CHECKER Ot E000.8 01/19/2015 TRAVON AN SAMPLE CHECKER Ot E819.9 01/19/2015 TRAVON AN SAMPLE CHECKER Ot 250.00 01/19/2015 TRAVON AN SAMPLE CHECKER Ot 787.01 01/19/2015 Ot 202.80 01/19/2015 Ot 250.00 01/19/2015 Ot 401.9 01/19/2015 Ot 780.79 01/19/2015 Ot 784.0 01/19/2015 Ot 787.02 01/19/2015 Ot V45.82 01/19/2015 Ot V57.89 01/19/2015 TRAVON AN SAMPLE CHECKER Ot 250.00 01/19/2015 TRAVON AN SAMPLE CHECKER Ot 458.9 01/19/2015 TRAVON AN SAMPLE CHECKER Ot 585.4 01/19/2015 TRAVON AN SAMPLE CHECKER Ot 780.4 01/19/2015 DAVID CEJA DO Ot 327.23 01/19/2015 DAVID CEJA DO Ot 486 01/19/2015 DAVID CEJA DO Ot 327.23 01/19/2015 DAVID CEJA DO Ot 486 01/19/2015 DAVID CEJA DO Ot 786.09 01/19/2015 DAVID CEJA DO Ot 327.23 01/19/2015 DAVID CEJA DO Ot 486 01/19/2015 DAVID CEJA DO Ot 786.09 01/19/2015 DAVID CEJA DO Ot 786.2 01/19/2015 NATALIYATRAVON SAMPLE CHECKER Ot 401.9 01/19/2015 NATALIYATRAVON SAMPLE CHECKER Ot 250.01 01/19/2015 TRAVON AN SAMPLE CHECKER Ot 401.9 01/19/2015 TRAVON AN SAMPLE CHECKER Ot V58.69 01/19/2015 NATALIYATRAVON SAMPLE CHECKER Ot V72.62 01/19/2015 OTHER, UNLISTED Ot 250.00 01/19/2015 OTHER, UNLISTED Ot 401.9 01/19/2015 OTHER, UNLISTED Ot 491.21 01/19/2015 OTHER, UNLISTED Ot 593.9 01/19/2015 GEOVANNA HILTON MD Ot 443.9 01/19/2015 GEOVANNA HILTON MD Ot 707.15 01/19/2015 ROSS QUIÑONES ELECTRIC FRYING PAN REPAIRER-C Ot 403.10 01/19/2015 ROSS QUIÑONES ELECTRIC FRYING PAN REPAIRER-C Ot 584.9 01/19/2015 ROSS QUIÑONES ELECTRIC FRYING PAN REPAIRER-C Ot 585.4 01/19/2015 ROSS QUIÑONES ELECTRIC FRYING PAN REPAIRER-C Ot 782.3 01/19/2015 YUMIKO MASSEY, SEBASTIAN Arvizu Ot 244.9 01/19/2015 YUMIKO MASSEY, SEBASTIAN Arvizu Ot 250.02 01/19/2015 SEBASTIAN CALDERON MD Ot 401.9 01/19/2015 YUMIKO MASSEY, SEBASTIAN Arvizu Ot 458.9 01/19/2015 SEBASTIAN CALDERON MD Ot 586 01/19/2015 PAIGE MCLAIN SAMPLE CHECKER Ot 202.80 01/19/2015 PAIGE MCLAIN SAMPLE CHECKER Ot 244.9 01/19/2015 PAIGE MCLAIN SAMPLE CHECKER Ot 250.40 01/19/2015 PAIGE MCLAIN SAMPLE CHECKER Ot 250.60 01/19/2015 PAIGE MCLAIN SAMPLE CHECKER Ot 285.21 01/19/2015 PAIGE MCLAIN S SAMPLE CHECKER Ot 357.2 01/19/2015 MCLAINPAIGE Matthews S SAMPLE CHECKER Ot 583.81 01/19/2015 PAIGE MCLAIN S SAMPLE CHECKER Ot 585.4 01/19/2015 PAIGE MCLAIN S SAMPLE CHECKER Ot 780.4 01/19/2015 PAIGE MCLAIN S SAMPLE CHECKER Ot 784.0 01/19/2015 PAIGE MCLAIN S SAMPLE CHECKER Ot 785.6 01/19/2015 PAIGE MCLAIN S SAMPLE CHECKER Ot V15.3 01/19/2015 MCLAINPAIGE Matthews S SAMPLE CHECKER Ot V58.67 01/19/2015 MCLAINPAIGE Matthews S SAMPLE CHECKER Ot V58.69 01/19/2015 CELESTINE MASSEY, MARKY Caputo Ot 585.3 01/19/2015 PAIGE MCLAIN S SAMPLE CHECKER Ot 202.80 01/19/2015 PAIGE MCLAIN S SAMPLE CHECKER Ot 780.4 01/19/2015 PAIGE MCLAIN S SAMPLE CHECKER Ot 784.0 01/19/2015 PAIGE MCLAIN S SAMPLE CHECKER Ot 785.6 01/19/2015 FLORES MATTHEWS CLINICAL COORDINATOR Ot K59.00 01/19/2015 FLORES MATTHEWS CLINICAL COORDINATOR Ot R11.0 01/19/2015 FLORES MATTHEWS CLINICAL COORDINATOR Ot R19.12 01/19/2015 MARCABRAHAM SINGH DO Ot R93.5 01/19/2015 [place] ABRAHAM LU Ot Z01.818 01/19/2015 TRAVON AN SAMPLE CHECKER Ot E03.9 01/19/2015 TRAVON AN SAMPLE CHECKER Ot E11.65 01/19/2015 TRAVON AN SAMPLE CHECKER Ot N18.4 01/19/2015 CELESTINE MASSEY, MARKY Caputo Ot N18.3 01/19/2015 CELESTINE MASSEY, MARKY Caputo Ot N18.4 01/25/2015 MCLAINPAIGE Matthews S SAMPLE CHECKER Ot C85.80 01/25/2015 MCLAINPAIGE Matthews S SAMPLE CHECKER Ot D63.1 01/25/2015 CHEMOPAIGE S SAMPLE CHECKER Ot E03.9 01/25/2015 CHEMO PAIGE S SAMPLE CHECKER Ot E11.22 01/25/2015 CHEMO PAIGE Matthews SAMPLE CHECKER Ot E11.40 01/25/2015 CHEMO PAIGE Matthews SAMPLE CHECKER Ot E78.5 01/25/2015 CHEMO PAIGE Matthews SAMPLE CHECKER Ot G47.30 01/25/2015 CHEMO PAIGE Matthews SAMPLE CHECKER Ot I12.9 01/25/2015 CHEMO PAIGE Matthews SAMPLE CHECKER Ot I25.10 01/25/2015 CHEMO PAIGE Byron SAMPLE CHECKER Ot N18.4 01/25/2015 CHEMO PAIGE Matthews SAMPLE CHECKER Ot Z79.4 01/25/2015 CHEMO PAIGE Matthews SAMPLE CHECKER Ot Z79.899 01/25/2015 CYNTHIA MCLAINBRODIE Matthews SAMPLE CHECKER Ot Z98.61 01/31/2015 ISSAC SILVA MD Ot E11.9 TYPE 2 DIABETES MELLITUS WITHOUT COMPLIC 01/31/2015 ISSAC SILVA MD Ot I12.9 HYPERTENSIVE CHRONIC KIDNEY DISEASE W ST 01/31/2015 ISSAC SILVA MD Ot J81.0 ACUTE PULMONARY EDEMA 01/31/2015 ISSAC SILVA MD Ot N18.4 CHRONIC KIDNEY DISEASE, STAGE 4 (SEVERE) 01/31/2015 ISSAC SILVA MD Ot R07.9 CHEST PAIN, UNSPECIFIED 01/31/2015 ISSAC SILVA MD Ot R09.02 HYPOXEMIA 01/31/2015 ISSAC SILVA MD, Ot 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 01/31/2015 ISSAC SILVA MD Ot Z85.72 PERSONAL HISTORY OF NON-HODGKIN LYMPHOMA 01/31/2015 ISSAC SILVA MD Ot Z85.850 PERSONAL HISTORY OF MALIGNANT NEOPLASM O 02/02/2015 PAIGE MCLAIN SAMPLE CHECKER Ot C85.80 02/02/2015 PAIGE MCLAIN SAMPLE CHECKER Ot D63.1 02/02/2015 CYNTHIA MCLAINBRODIE Byron SAMPLE CHECKER Ot E03.9 02/02/2015 PAIGE MCLAIN SAMPLE CHECKER Ot E11.22 02/02/2015 PAIGE MCLAIN SAMPLE CHECKER Ot E11.40 02/02/2015 CYNTHIA MCLAINBRODIE Byron SAMPLE CHECKER Ot E78.5 02/02/2015 PAIGE MCLAIN SAMPLE CHECKER Ot G47.30 02/02/2015 PAIGE MCLAIN SAMPLE CHECKER Ot I12.9 02/02/2015 PAIGE MCLAIN SAMPLE CHECKER Ot I25.10 02/02/2015 PAIGE MCLAIN SAMPLE CHECKER Ot N18.4 02/02/2015 PAIGE MCLAIN SAMPLE CHECKER Ot Z79.4 02/02/2015 PAIGE MCLAIN SAMPLE CHECKER Ot Z79.899 02/02/2015 PAIGE MCLAIN SAMPLE CHECKER Ot Z98.61 02/09/2015 FLORES MATTHEWS CLINICAL COORDINATOR Ot R53.83 02/09/2015 FLORES MATTHEWS CLINICAL COORDINATOR Ot R94.6 02/09/2015 CELESTINE MASSEY, MARKY Caputo Ot N18.4 02/09/2015 VIKTOR MASSEY, TEDDY Andres Ot E78.2 02/09/2015 VIKTOR MASSEY, TEDDY Andres Ot I10 02/09/2015 VIKTOR MASSEY, TEDDY Andres Ot I25.10 02/21/2015 VIKTOR MASSEY, TEDDY Andres Ot E78.2 02/21/2015 VIKTOR MASSEY, TEDDY Andres Ot I10 02/21/2015 VIKTOR MASSEY, TEDDY Andres Ot I25.10 02/28/2015 JAYNA, BOBAN N Ot C85.80 02/28/2015 JAYNA, BOBAN N Ot D63.1 02/28/2015 JAYNA, BOBAN N Ot E03.9 02/28/2015 JAYNA, BOBAN N Ot E11.9 02/28/2015 JAYNA, BOBAN N Ot E78.5 02/28/2015 JAYNA, BOBAN N Ot G47.30 02/28/2015 JAYNA, BOBAN N Ot G60.9 02/28/2015 JAYNA, BOBAN N Ot I12.9 02/28/2015 JAYNA, BOBAN N Ot I25.10 02/28/2015 JAYNA, BOBAN N Ot N18.4 02/28/2015 JAYNA, BOBAN N Ot Z79.4 02/28/2015 JAYNA, BOBAN N Ot Z79.899 02/28/2015 JAYNA, BOBAN N Ot Z98.61 03/08/2015 JAYNA, BOBAN N Ot C85.80 03/08/2015 JAYNA, BOBAN N Ot D63.1 03/08/2015 JAYNASHIRA CONRAD Ot E03.9 03/08/2015 JAYNASHIRA CONRAD Ot E11.9 03/08/2015 JAYNASHIRA CONRAD Ot E78.5 03/08/2015 JAYNASHIRA CONRAD Ot G47.30 03/08/2015 JAYNASHIRA CONRAD Ot G60.9 03/08/2015 JAYNASHIRA CONRAD Ot I12.9 03/08/2015 JAYNASHIRA CONRAD Ot I25.10 03/08/2015 JAYNASHIRA CONRAD Ot N18.4 03/08/2015 JAYNASHIRA CONRAD Ot Z79.4 03/08/2015 JAYNASHIRA CONRAD Ot Z79.899 03/08/2015 SHIRA DORANTES Ot Z98.61 03/20/2015 Ot 241.0 03/20/2015 Ot 784.2 03/20/2015 Ot 785.6 03/20/2015 Ot 785.6 03/20/2015 Ot 784.2 03/20/2015 Ot V72.84 03/20/2015 Ot V74.8 03/20/2015 Ot 202.80 03/20/2015 Ot 202.80 03/20/2015 Ot V72.84 03/20/2015 Ot 202.80 03/20/2015 Ot 250.00 03/20/2015 Ot 202.88 03/20/2015 Ot 250.02 03/20/2015 Ot 272.4 03/20/2015 Ot 401.9 03/20/2015 Ot 202.80 03/20/2015 Ot 786.05 03/20/2015 Ot 202.80 03/20/2015 Ot 202.80 03/20/2015 Ot 250.01 03/20/2015 Ot 202.81 03/20/2015 Ot 244.9 03/20/2015 Ot 250.00 03/20/2015 Ot 272.4 03/20/2015 Ot 414.00 03/20/2015 Ot 585.3 03/20/2015 Ot V15.3 03/20/2015 Ot V45.82 03/20/2015 Ot V58.67 03/20/2015 Ot V58.69 03/20/2015 Ot V87.41 03/20/2015 Ot 202.80 03/20/2015 SHIRA DORANTES Ot 202.80 03/20/2015 Ot 397.0 03/20/2015 Ot 401.9 03/20/2015 Ot 414.00 03/20/2015 Ot 424.0 03/20/2015 Ot 786.09 03/20/2015 Ot 401.9 03/20/2015 Ot 414.00 03/20/2015 Ot 786.09 03/20/2015 Ot 244.9 03/20/2015 Ot 250.03 03/20/2015 Ot 401.9 03/20/2015 Ot 272.4 03/20/2015 Ot 401.9 03/20/2015 Ot 414.00 03/20/2015 YUMIKO MASSEY, SEBASTIAN A Ot 433.10 03/20/2015 YUMIKO MASSEY, SEBASTIAN Arvizu Ot 780.2 03/20/2015 YUMIKO MASSEY, SEBASTIAN A Ot 959.01 03/20/2015 YUMIKO MASSEY, SEBASTIAN A Ot E000.8 03/20/2015 YUMIKO MASSEY, SEBASTIAN A Ot E849.7 03/20/2015 YUMIKO MASSEY, SEBASTIAN A Ot E888.9 03/20/2015 SHIRA DORANTES N Ot 202.80 03/20/2015 BALTAZAR MASSEY, LIZETTE Caputo Ot 433.10 03/20/2015 PAIGE MCLAIN SAMPLE CHECKER Ot 202.80 03/20/2015 PAIGE MCLAIN S SAMPLE CHECKER Ot 244.9 03/20/2015 PAIGE MCLAIN S SAMPLE CHECKER Ot 585.3 03/20/2015 PAIEG MCLAIN S SAMPLE CHECKER Ot 780.4 03/20/2015 PAIGE MCLAIN S SAMPLE CHECKER Ot 783.21 03/20/2015 PAIGE MCLAIN S SAMPLE CHECKER Ot V15.3 03/20/2015 PAIGE MCLAIN S SAMPLE CHECKER Ot V87.41 03/20/2015 PAIGE MCLAIN S SAMPLE CHECKER Ot 202.80 03/20/2015 YUMIKO MASSEY, SEBASTIAN A Ot 272.4 03/20/2015 YUMIKO MASSEY, SEBASTIAN A Ot 401.9 03/20/2015 YUMIKO MASSEY, SEBASTIAN A Ot V58.69 03/20/2015 TRAVON AN SAMPLE CHECKER Ot 719.45 03/20/2015 TRAVON AN SAMPLE CHECKER Ot 786.50 03/20/2015 TRAVON AN SAMPLE CHECKER Ot E000.8 03/20/2015 NATALIYA TRAVON M SAMPLE CHECKER Ot E849.6 03/20/2015 NATALIYA TRAVON Harshal SAMPLE CHECKER Ot E888.9 03/20/2015 MCLAINPAIGE Matthews S SAMPLE CHECKER Ot 202.80 03/20/2015 MCLAIN, HILAH S SAMPLE CHECKER Ot 244.9 03/20/2015 MCLAIN, HILAH S SAMPLE CHECKER Ot 250.00 03/20/2015 MCLAIN, HILAH S SAMPLE CHECKER Ot 272.4 03/20/2015 MCLAIN, HILAH S SAMPLE CHECKER Ot 356.9 03/20/2015 MCLAIN, HILAH S SAMPLE CHECKER Ot 403.90 03/20/2015 MCLAIN, HILAH S SAMPLE CHECKER Ot 414.00 03/20/2015 MCLAIN, HILAH S SAMPLE CHECKER Ot 585.3 03/20/2015 MCLAIN, HILAH S SAMPLE CHECKER Ot 780.57 03/20/2015 MCLAIN, HILAH S SAMPLE CHECKER Ot V15.3 03/20/2015 MCLAIN, HILAH S SAMPLE CHECKER Ot V45.82 03/20/2015 MCLAIN, HILAH S SAMPLE CHECKER Ot V58.67 03/20/2015 MCLAIN, HILAH S SAMPLE CHECKER Ot V58.69 03/20/2015 MCLAIN, HILAH S SAMPLE CHECKER Ot V87.41 03/20/2015 MCLAIN, HILAH S SAMPLE CHECKER Ot 202.80 03/20/2015 SHIRA DORANTES Ot 202.80 03/20/2015 TRAVON AN SAMPLE CHECKER Ot 401.9 03/20/2015 TRAVON AN SAMPLE CHECKER Ot 518.0 03/20/2015 NICOLE MASSEY, CORY A Ot 591 03/20/2015 NICOLE MASSEY, CORY A Ot 599.70 03/20/2015 NICOLE MASSEY, CORY A Ot 600.00 03/20/2015 NICOLE MASSEY, CORY A Ot 257.2 03/20/2015 NICOLE MASSEY, CORY A Ot 599.70 03/20/2015 NICOLE MASSEY, CORY A Ot 600.00 03/20/2015 TRAVON AN SAMPLE CHECKER Ot 250.01 03/20/2015 MCLAIN, PAIGE S SAMPLE CHECKER Ot 202.80 03/20/2015 MCLAIN, HILAH S SAMPLE CHECKER Ot 202.88 03/20/2015 PAIGE MCLAIN S SAMPLE CHECKER Ot 244.9 03/20/2015 MCLAINPAIGE Matthews S SAMPLE CHECKER Ot 250.00 03/20/2015 MCLAINPAIGE Matthews S SAMPLE CHECKER Ot 414.00 03/20/2015 PAIGE MCLAIN S SAMPLE CHECKER Ot 585.3 03/20/2015 MCLAINPAIGE Matthews S SAMPLE CHECKER Ot V45.82 03/20/2015 MCLAINPAIGE S SAMPLE CHECKER Ot V58.67 03/20/2015 MCLAINPAIGE S SAMPLE CHECKER Ot V58.69 03/20/2015 YUMIKO MASSEY, SEBASTIAN A Ot V58.69 03/20/2015 YUMIKO MASSEY, SEBASTIAN A Ot V58.83 03/20/2015 MCLAINPAIGE Matthews S SAMPLE CHECKER Ot 202.80 03/20/2015 PAIGE MCLAIN S SAMPLE CHECKER Ot 244.9 03/20/2015 MCLAINPAIGE Matthews S SAMPLE CHECKER Ot 250.00 03/20/2015 MCLAINPAIGE Matthews S SAMPLE CHECKER Ot 272.4 03/20/2015 MCLAINPAIGE Matthews S SAMPLE CHECKER Ot 356.9 03/20/2015 MCLAINPAIGE Matthews S SAMPLE CHECKER Ot 403.90 03/20/2015 PAIGE MCLAIN S SAMPLE CHECKER Ot 414.00 03/20/2015 PAIGE MCLAIN S SAMPLE CHECKER Ot 585.3 03/20/2015 MCLAINPAIGE Matthews S SAMPLE CHECKER Ot 780.57 03/20/2015 MCLAINPAIGE Matthews S SAMPLE CHECKER Ot V45.82 03/20/2015 MCLAINPAIGE Matthews S SAMPLE CHECKER Ot V58.67 03/20/2015 MCLAINPAIGE Matthews S SAMPLE CHECKER Ot V58.69 03/20/2015 TRAVON AN SAMPLE CHECKER Ot 250.01 03/20/2015 TRAVON AN SAMPLE CHECKER Ot 272.4 03/20/2015 TRAVON AN SAMPLE CHECKER Ot 401.9 03/20/2015 YUMIKO MASSEY, SEBASTIAN A Ot 250.01 03/20/2015 YUMIKO MASSEY, SEBASTIAN A Ot V58.69 03/20/2015 YUMIKO MASSEY, SEBASTIAN A Ot V58.83 03/20/2015 YUMIKO MASSEY, SEBASTIAN A Ot 285.9 03/20/2015 YUMIKO MASSEY, SEBASTIAN A Ot 786.2 03/20/2015 YUMIKO MASSEY, SEBASTIAN Arvizu Ot 786.2 03/20/2015 TRAVON AN SAMPLE CHECKER Ot 285.9 03/20/2015 TRAVON AN SAMPLE CHECKER Ot 288.60 03/20/2015 YUMIKO MASSEY, SEBASTIAN A Ot 285.9 03/20/2015 YUMIKO MASSEY, SEBASTIAN Arvizu Ot 490 03/20/2015 YUMIKO MASSEY, SEBASTIAN Arvizu Ot 780.79 03/20/2015 ABRAHAM MARC DO Ot V72.84 03/20/2015 BRYNN ROBLEDO, TIESHA K Ot 250.92 03/20/2015 BRYNN ROBLEDO, TIESHA K Ot 272.4 03/20/2015 BRYNN ROBLEDO, TIESHA K Ot 401.9 03/20/2015 BRYNN ROBLEDO, TIESHA K Ot 414.01 03/20/2015 PAIGE MCLAIN SAMPLE CHECKER Ot 202.88 03/20/2015 PAIGE MCLAIN SAMPLE CHECKER Ot 244.9 03/20/2015 PAIGE MCLAIN S SAMPLE CHECKER Ot 250.00 03/20/2015 PAIGE MCLAIN S SAMPLE CHECKER Ot 414.00 03/20/2015 PAIGE MCLAIN SAMPLE CHECKER Ot 585.3 03/20/2015 PAIGE MCLAIN SAMPLE CHECKER Ot V58.67 03/20/2015 PAIGE MCLAIN S SAMPLE CHECKER Ot V58.69 03/20/2015 PAIGE MCLAIN S SAMPLE CHECKER Ot 202.80 03/20/2015 VIKTOR MASSEY, TEDDY Andres Ot 272.4 03/20/2015 VIKTOR MASSEY, TEDDY Andres Ot 401.9 03/20/2015 VIKTOR MASSEY, TEDDY Andres Ot 414.00 03/20/2015 VIKTOR MASSEY, TEDDY Andres Ot 780.2 03/20/2015 VIKTOR MASSEY, TEDDY Andres Ot 401.9 03/20/2015 VIKTOR MASSEY, TEDDY Andres Ot 414.00 03/20/2015 VIKTOR MASSEY, TEDDY Andres Ot 780.2 03/20/2015 MCLAINPAIGE Matthews SAMPLE CHECKER Ot 202.80 03/20/2015 Ot 202.88 03/20/2015 Ot 244.9 03/20/2015 Ot 250.00 03/20/2015 Ot 414.00 03/20/2015 Ot 784.0 03/20/2015 Ot V45.82 03/20/2015 Ot V58.67 03/20/2015 Ot V58.69 03/20/2015 SHIRA DORANTES N Ot 202.80 03/20/2015 JAYNASHIRA CONRAD N Ot 244.9 03/20/2015 JAYNASHIRA CONRAD N Ot 250.00 03/20/2015 JAYNASHIRA CONRAD N Ot 414.01 03/20/2015 JAYNASHIRA CONRAD N Ot 585.3 03/20/2015 JAYNASHIRA CONRAD N Ot V45.82 03/20/2015 JAYNASHIRA CONRAD N Ot V58.67 03/20/2015 Ot 593.89 03/20/2015 Ot 789.00 03/20/2015 SHIRA DORANTES N Ot 202.80 03/20/2015 CORY RIVERA MD Ot 593.9 03/20/2015 TRAVON AN SAMPLE CHECKER Ot 721.0 03/20/2015 TRAVON AN SAMPLE CHECKER Ot 721.3 03/20/2015 TRAVON AN SAMPLE CHECKER Ot E000.8 03/20/2015 TRAVON AN SAMPLE CHECKER Ot E819.9 03/20/2015 TRAVON AN SAMPLE CHECKER Ot 250.00 03/20/2015 TRAVON AN SAMPLE CHECKER Ot 787.01 03/20/2015 Ot 202.80 03/20/2015 Ot 250.00 03/20/2015 Ot 401.9 03/20/2015 Ot 780.79 03/20/2015 Ot 784.0 03/20/2015 Ot 787.02 03/20/2015 Ot V45.82 03/20/2015 Ot V57.89 03/20/2015 TRAVON AN SAMPLE CHECKER Ot 250.00 03/20/2015 TRAVON AN SAMPLE CHECKER Ot 458.9 03/20/2015 TRAVON AN SAMPLE CHECKER Ot 585.4 03/20/2015 TRAVON AN SAMPLE CHECKER Ot 780.4 03/20/2015 DAVID CEJA DO Ot 327.23 03/20/2015 DAVID CEJA DO Ot 486 03/20/2015 DAVID CEJA DO Ot 327.23 03/20/2015 DAVID CEJA DO Ot 486 03/20/2015 DAVID CEJA DO Ot 786.09 03/20/2015 DAVID CEJA DO Ot 327.23 03/20/2015 DAVID CEJA DO Ot 486 03/20/2015 DAVID CEJA DO Ot 786.09 03/20/2015 DAVID CEJA DO Ot 786.2 03/20/2015 NATALIYATRAVON SAMPLE CHECKER Ot 401.9 03/20/2015 NATALIYATRAVON SAMPLE CHECKER Ot 250.01 03/20/2015 NATALIYATRAVON SAMPLE CHECKER Ot 401.9 03/20/2015 ANTRAVON SAMPLE CHECKER Ot V58.69 03/20/2015 NATALIYATRAVON SAMPLE CHECKER Ot V72.62 03/20/2015 OTHER, UNLISTED Ot 250.00 03/20/2015 OTHER, UNLISTED Ot 401.9 03/20/2015 OTHER, UNLISTED Ot 491.21 03/20/2015 OTHER, UNLISTED Ot 593.9 03/20/2015 YOBANI MASSEY, GEOVANNA Jaquez Ot 443.9 03/20/2015 GEOVANNA HILTON MD Ot 707.15 03/20/2015 ROSS QUIÑONES ELECTRIC FRYING PAN REPAIRER-C Ot 403.10 03/20/2015 ROSS QUIÑONES ELECTRIC FRYING PAN REPAIRER-C Ot 584.9 03/20/2015 ROSS QUIÑONES ELECTRIC FRYING PAN REPAIRER-C Ot 585.4 03/20/2015 ROSS QUIÑONES ELECTRIC FRYING PAN REPAIRER-C Ot 782.3 03/20/2015 YUMIKO MASSEY, SEBASTIAN Arvizu Ot 244.9 03/20/2015 YUMIKO MASSEY, SEBASTIAN Arvizu Ot 250.02 03/20/2015 YUMIKO MASSEY, SEBASTIAN Arvizu Ot 401.9 03/20/2015 YUMIKO MASSEY, SEBASTIAN A Ot 458.9 03/20/2015 YUMIKO MASSEY, SEBASTIAN Arvizu Ot 586 03/20/2015 PAIGE MCLAIN SAMPLE CHECKER Ot 202.80 03/20/2015 PAIGE MCLAIN SAMPLE CHECKER Ot 244.9 03/20/2015 PAIGE MCALIN SAMPLE CHECKER Ot 250.40 03/20/2015 PAIGE MCLAIN SAMPLE CHECKER Ot 250.60 03/20/2015 PAIGE MCLAIN SAMPLE CHECKER Ot 285.21 03/20/2015 PAIGE MCLAIN SAMPLE CHECKER Ot 357.2 03/20/2015 PAIGE MCLAIN S SAMPLE CHECKER Ot 583.81 03/20/2015 PAIGE MCLAIN S SAMPLE CHECKER Ot 585.4 03/20/2015 PAIGE MCLAIN S SAMPLE CHECKER Ot 780.4 03/20/2015 MCLAINPAIGE Matthews S SAMPLE CHECKER Ot 784.0 03/20/2015 MCLAINPAIGE Matthews S SAMPLE CHECKER Ot 785.6 03/20/2015 PAIGE MCLAIN S SAMPLE CHECKER Ot V15.3 03/20/2015 MCLAINPAIGE Matthews S SAMPLE CHECKER Ot V58.67 03/20/2015 MCLAINPAIGE Matthews S SAMPLE CHECKER Ot V58.69 03/20/2015 CLEESTINE MASSEY, MARKY Caputo Ot 585.3 03/20/2015 PAIGE MCLAIN S SAMPLE CHECKER Ot 202.80 03/20/2015 PAIGE MCLAIN S SAMPLE CHECKER Ot 780.4 03/20/2015 PAIGE MCLAIN SAMPLE CHECKER Ot 784.0 03/20/2015 PAIGE MCLAIN SAMPLE CHECKER Ot 785.6 03/20/2015 FLORES MATTHEWS CLINICAL COORDINATOR Ot K59.00 03/20/2015 FLORES MATTHEWS CLINICAL COORDINATOR Ot R11.0 03/20/2015 FLORES MATTHEWS CLINICAL COORDINATOR Ot R19.12 03/20/2015 [place] ABRAHAM LU Ot R93.5 03/20/2015 [place] ABRAHMA LU Ot Z01.818 03/20/2015 TRAVON AN SAMPLE CHECKER Ot E03.9 03/20/2015 TRAVON AN SAMPLE CHECKER Ot E11.65 03/20/2015 TRAVON AN SAMPLE CHECKER Ot N18.4 03/20/2015 CELESTINE MASSEY, MARKY Caputo Ot N18.3 03/20/2015 CELESTINE MASSEY, MARKY Caputo Ot N18.4 03/23/2015 SHIRA DORANTES Ot C85.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, UNSPE 03/23/2015 SHIRA DORANTES Ot D63.1 ANEMIA IN CHRONIC KIDNEY DISEASE 03/23/2015 SHIRA DORANTES Ot E03.9 HYPOTHYROIDISM, UNSPECIFIED 03/23/2015 SHIRA DORANTES N Ot E11.9 TYPE 2 DIABETES MELLITUS WITHOUT COMPLIC 03/23/2015 SHIRA DORANTES N Ot E78.5 HYPERLIPIDEMIA, UNSPECIFIED 03/23/2015 JAYNASHIRA CONRAD N Ot G47.30 SLEEP APNEA, UNSPECIFIED 03/23/2015 JAYNASHIRA N Ot G60.9 HEREDITARY AND IDIOPATHIC NEUROPATHY, UN 03/23/2015 SHIRA DORANTES N Ot I12.9 HYPERTENSIVE CHRONIC KIDNEY DISEASE W ST 03/23/2015 SHIRA DORANTES N Ot I25.10 ATHSCL HEART DISEASE OF [place] CORONARY 03/23/2015 SHIRA DORANTES N Ot N18.4 CHRONIC KIDNEY DISEASE, STAGE 4 (SEVERE) 03/23/2015 SHIRA DORANTES N Ot 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 03/23/2015 SHIRA DORANTES N Ot Z79.899 OTHER PENITENTIARY (CURRENT) DRUG THERAPY 03/23/2015 SHIRA DORANTES N Ot Z98.61 CORONARY ANGIOPLASTY STATUS 04/10/2015 VIKTOR MASSEY, TEDDY Andres Ot E78.2 04/10/2015 VIKTOR MASSEY, TEDDY Andres Ot I10 04/10/2015 VIKTRO MASSEY, TEDDY Andres Ot I25.10 04/10/2015 VIKTOR MASSEY, TEDDY Andres Ot I65.23 04/10/2015 SHIRA DORANTES N Ot C85.80 04/10/2015 JAYNASHIRA CONRAD N Ot D63.1 04/10/2015 JAYNASHIRA CONRAD N Ot E03.9 04/10/2015 JAYNASHIRA CONRAD N Ot E11.9 04/10/2015 JAYNASHIRA N Ot E78.5 04/10/2015 JAYNASHIRA N Ot G47.30 04/10/2015 JAYNASHIRA N Ot G60.9 04/10/2015 JAYNASHIRA N Ot I12.9 04/10/2015 JAYNASHIRA CONRAD N Ot I25.10 04/10/2015 JAYNASHIRA CONRAD N Ot N18.4 04/10/2015 JAYNASHIRA CONRAD N Ot Z79.4 04/10/2015 JAYNASHIRA CONRAD N Ot Z79.899 04/10/2015 JAYNASHIRA CONRAD N Ot Z98.61 04/12/2015 VIKTOR MASSEY, TEDDY Andres Ot E78.2 04/12/2015 VIKTOR MASSEY, TEDDY Andres Ot I10 04/12/2015 VIKTOR MASSEY, TEDDY Andres Ot I25.10 04/12/2015 VIKTOR MASSEY, TEDDY Andres Ot I65.23 04/30/2015 SHIRA MASSEY, ISSAC Delaney Ot I12.0 HYP CHR KIDNEY DISEASE W STAGE 5 CHR KID 04/30/2015 SHIRA MASSEY, ISSAC Delaney Ot N18.6 END STAGE RENAL DISEASE 04/30/2015 SHIRA MASSEY, ISSAC T Ot R06.2 WHEEZING 04/30/2015 SHIRA MASSEY, ISSAC T Ot R09.02 HYPOXEMIA 04/30/2015 SHIRA MASSEY, ISSAC T Ot R29.6 REPEATED FALLS 04/30/2015 SHIRA MASSEY, ISSAC T Ot R53.1 WEAKNESS 04/30/2015 SHIRA MASSEY, ISSAC T Ot R79.89 OTHER SPECIFIED ABNORMAL FINDINGS OF BLO 04/30/2015 SHIRA MASSEY, ISSAC T Ot Z98.61 CORONARY ANGIOPLASTY STATUS 04/30/2015 SHIRA MASSEY, ISSAC T Ot Z99.2 DEPENDENCE ON RENAL DIALYSIS 05/01/2015 VIKTOR MASSEY, TEDDY Andres Ot E78.2 05/01/2015 VIKTOR MASSEY, TEDDY Andres Ot I10 05/01/2015 VIKTOR MASSEY, TEDDY Andres Ot I25.10 05/01/2015 VIKTOR MASSEY, TEDDY Andres Ot I65.23 05/02/2015 SHIRA MASSEY, ISSAC T Ot I12.0 05/02/2015 SHIRA MASSEY, ISSAC T Ot N18.6 05/02/2015 SHIRA MASSEY, ISSAC T Ot R06.2 05/02/2015 ISSAC SILVA MD T Ot R09.02 05/02/2015 ISSAC SILVA MD T Ot R29.6 05/02/2015 ISSAC SILVA MD T Ot R53.1 05/02/2015 ISSAC SILVA MD T Ot R79.89 05/02/2015 ISSAC SILVA MD T Ot Z98.61 05/02/2015 SHIRA MASSEY, ISSAC Delaney Ot Z99.2 05/11/2015 JAYNA, BOBAN N Ot C85.80 05/11/2015 JAYNA, BOBAN N Ot D63.1 05/11/2015 JAYNA, BOBAN N Ot E03.9 05/11/2015 JAYNA, BOBAN N Ot E11.9 05/11/2015 JAYNA, BOBAN N Ot E78.5 05/11/2015 JAYNA, BOBAN N Ot G47.30 05/11/2015 JAYNA, BOBAN N Ot G60.9 05/11/2015 JAYNA, BOBAN N Ot I12.9 05/11/2015 JAYNA, BOBAN N Ot I25.10 05/11/2015 JAYNA, BOBAN N Ot N18.4 05/11/2015 JAYNA, BOBAN N Ot Z79.4 05/11/2015 JAYNA, BOBAN N Ot Z79.899 05/11/2015 JAYNA, BOBAN N Ot Z98.61 05/17/2015 JAYNA, BOBAN N Ot C85.80 05/17/2015 JAYNA, BOBAN N Ot D63.1 05/17/2015 JAYNA, BOBAN N Ot E03.9 05/17/2015 JAYNA, BOBAN N Ot E11.9 05/17/2015 JAYNA, BOBAN N Ot E78.5 05/17/2015 JAYNA, BOBAN N Ot G47.30 05/17/2015 JAYNA, BOBAN N Ot G60.9 05/17/2015 JAYNA, BOBAN N Ot I12.9 05/17/2015 JAYNA, BOBAN N Ot I25.10 05/17/2015 JAYNA, BOBAN N Ot N18.4 05/17/2015 JAYNA, BOBAN N Ot Z79.4 05/17/2015 JAYNA, BOBAN N Ot Z79.899 05/17/2015 JAYNA, BOBAN N Ot Z98.61 05/22/2015 VIKTOR MASSEY, TEDDY Andres Ot E78.2 05/22/2015 VIKTOR MASSEY, TEDDY Andres Ot I10 05/22/2015 VIKTOR MASSEY, TEDDY Andres Ot I25.10 05/22/2015 VIKTOR MASSEY, TEDDY Andres Ot I65.23 05/24/2015 SHIRA MASSEY, ISSAC T Ot I12.0 05/24/2015 SHIRA MASSEY, ISSAC T Ot N18.6 05/24/2015 SHIRA MASSEY, ISSAC T Ot R06.2 05/24/2015 SHIRA MASSEY, ISSAC T Ot R09.02 05/24/2015 SHIRA MASSEY, ISSAC T Ot R29.6 05/24/2015 SHIRA MASSEY, ISSAC T Ot R53.1 05/24/2015 SHIRA MASSEY, ISSAC T Ot R79.89 05/24/2015 SHIRA MASSEY, ISSAC T Ot Z98.61 05/24/2015 SHIRA MASSEY, ISSAC T Ot Z99.2 05/25/2015 NICOLE MASSEY, CORY A Ot N40.2 05/26/2015 NICOLE MASSEY, CORY A Ot N40.2 05/26/2015 NICOLE MASSEY, CORY A Ot N40.2 05/30/2015 NICOLE MASSEY, CORY A Ot N40.2 05/31/2015 Ot 241.0 05/31/2015 Ot 784.2 05/31/2015 Ot 785.6 05/31/2015 Ot 785.6 05/31/2015 Ot 784.2 05/31/2015 Ot V72.84 05/31/2015 Ot V74.8 05/31/2015 Ot 202.80 05/31/2015 Ot 202.80 05/31/2015 Ot V72.84 05/31/2015 Ot 202.80 05/31/2015 Ot 250.00 05/31/2015 Ot 202.88 05/31/2015 Ot 250.02 05/31/2015 Ot 272.4 05/31/2015 Ot 401.9 05/31/2015 Ot 202.80 05/31/2015 Ot 786.05 05/31/2015 Ot 202.80 05/31/2015 Ot 202.80 05/31/2015 Ot 250.01 05/31/2015 Ot 202.81 05/31/2015 Ot 244.9 05/31/2015 Ot 250.00 05/31/2015 Ot 272.4 05/31/2015 Ot 414.00 05/31/2015 Ot 585.3 05/31/2015 Ot V15.3 05/31/2015 Ot V45.82 05/31/2015 Ot V58.67 05/31/2015 Ot V58.69 05/31/2015 Ot V87.41 05/31/2015 Ot 202.80 05/31/2015 SHIRA DORANTES N Ot 202.80 05/31/2015 Ot 397.0 05/31/2015 Ot 401.9 05/31/2015 Ot 414.00 05/31/2015 Ot 424.0 05/31/2015 Ot 786.09 05/31/2015 Ot 401.9 05/31/2015 Ot 414.00 05/31/2015 Ot 786.09 05/31/2015 Ot 244.9 05/31/2015 Ot 250.03 05/31/2015 Ot 401.9 05/31/2015 Ot 272.4 05/31/2015 Ot 401.9 05/31/2015 Ot 414.00 05/31/2015 YUMIKO MASSEY, SEBASTIAN Arvizu Ot 433.10 05/31/2015 YUMIKO MASSEY, SEBASTIAN Arvizu Ot 780.2 05/31/2015 YUMIKO MASSEY, SEBASTIAN Arvizu Ot 959.01 05/31/2015 YUMIKO MASSEY, SEBASTIAN Arvizu Ot E000.8 05/31/2015 YUMIKO MASSEY, SEBASTIAN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 PAIGE MCLAINP Ot E03.9 HYPOTHYROIDISM, UNSPECIFIED 12/14/2015 PAIGE MCLAIN SAMPLE CHECKER Ot E11.22 TYPE 2 DIABETES MELLITUS W DIABETIC RESIDENCE 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 12/14/2015 PAIGE MCLAIN SAMPLE CHECKER Ot E11.40 TYPE 2 DIABETES MELLITUS WITH DIABETIC N 12/14/2015 PAIGE MCLAINP Ot E78.5 HYPERLIPIDEMIA, UNSPECIFIED 12/14/2015 PAIGE MCLAINP Ot G47.30 SLEEP APNEA, UNSPECIFIED 12/14/2015 PAIGE MCLAINP Ot I12.9 HYPERTENSIVE CHRONIC KIDNEY DISEASE W ST 12/14/2015 PAIGE MCLAINP Ot I25.10 ATHSCL HEART DISEASE OF [place] CORONARY 12/14/2015 PAIGE MCLAINP Ot N18.4 CHRONIC KIDNEY DISEASE, STAGE 4 (SEVERE) 12/14/2015 PAIGE MCLAINP Ot Z79.4 PENITENTIARY (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 12/14/2015 PAIGE MCLAINP Ot Z79.899 OTHER SURFACE LAY OUT TECHNICIAN (CURRENT) DRUG THERAPY 12/14/2015 PAIGE MCLAINP Ot Z98.61 CORONARY ANGIOPLASTY STATUS 12/14/2015 Ot E87.5 HYPERKALEMIA 12/14/2015 Ot I12.9 HYPERTENSIVE CHRONIC KIDNEY DISEASE W ST 12/14/2015 Ot N18.4 CHRONIC KIDNEY DISEASE, STAGE 4 (SEVERE) 12/14/2015 Ot R60.9 EDEMA, UNSPECIFIED 12/14/2015 FLORES MATTHEWS CLINICAL COORDINATOR Ot R53.83 OTHER FATIGUE 12/14/2015 FLORES MATTHEWS CLINICAL COORDINATOR Ot R94.6 ABNORMAL RESULTS OF THYROID FUNCTION GUILLERMO 12/14/2015 CELESTINE MASSEY, MARKY Caputo Ot N18.4 CHRONIC KIDNEY DISEASE, STAGE 4 (SEVERE) 12/14/2015 KASSY SPRAGUE MD Ot D64.9 ANEMIA, UNSPECIFIED 12/14/2015 KASSY SPRAGUE MD Ot E87.5 HYPERKALEMIA 12/14/2015 KASSY SPRAGUE MD Ot I12.0 HYP CHR KIDNEY DISEASE W STAGE 5 CHR KID 12/14/2015 KASSY SPRAGUE MD Ot N18.5 CHRONIC KIDNEY DISEASE, STAGE 5 12/14/2015 NICOLE MASSEY, CORY Arvizu Ot 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 12/14/2015 PAIGE MCLAINP Ot C85.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, UNSPE 12/14/2015 PAIEG MCLAIN SAMPLE CHECKER Ot D63.1 ANEMIA IN CHRONIC KIDNEY DISEASE 12/14/2015 PAIGE MCLAIN SAMPLE CHECKER Ot E03.9 HYPOTHYROIDISM, UNSPECIFIED 12/14/2015 PAIGE MCLAIN SAMPLE CHECKER Ot E11.21 TYPE 2 DIABETES MELLITUS WITH DIABETIC N 12/14/2015 PAIGE MCLAIN SAMPLE CHECKER Ot E11.22 TYPE 2 DIABETES MELLITUS W DIABETIC RESIDENCE 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 12/14/2015 PAIGE MCLAIN SAMPLE CHECKER Ot E11.43 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 12/14/2015 PAIGE MCLAINP Ot E78.5 HYPERLIPIDEMIA, UNSPECIFIED 12/14/2015 PAIGE MCLAIN SAMPLE CHECKER Ot G47.30 SLEEP APNEA, UNSPECIFIED 12/14/2015 PAIGE MCLAIN SAMPLE CHECKER Ot G60.9 HEREDITARY AND IDIOPATHIC NEUROPATHY, UN 12/14/2015 PAIGE MCLAINP Ot I12.9 HYPERTENSIVE CHRONIC KIDNEY DISEASE W ST 12/14/2015 PAIGE MCLAIN SAMPLE CHECKER Ot I25.10 ATHSCL HEART DISEASE OF [place] CORONARY 12/14/2015 PAIGE MCLAIN SAMPLE CHECKER Ot N18.4 CHRONIC KIDNEY DISEASE, STAGE 4 (SEVERE) 12/14/2015 PAIGE MCLAIN SAMPLE CHECKER Ot 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 12/14/2015 PAIGE MCLAIN SAMPLE CHECKER Ot Z79.899 OTHER PENITENTIARY (CURRENT) DRUG THERAPY 12/14/2015 PAIGE MCLAINP Ot Z98.61 CORONARY ANGIOPLASTY STATUS 12/14/2015 PAIGE MCLAIN SAMPLE CHECKER Ot Z99.2 DEPENDENCE ON RENAL DIALYSIS 12/14/2015 TRAVON AN SAMPLE CHECKER Ot E11.21 TYPE 2 DIABETES MELLITUS WITH DIABETIC N 12/14/2015 DAVID CEJA DO Ot F41.9 ANXIETY DISORDER, UNSPECIFIED 12/14/2015 DAVID CEJA DO Ot N18.3 CHRONIC KIDNEY DISEASE, STAGE 3 (MODERAT 12/14/2015 DAVID CEJA DO Ot R05 COUGH 12/14/2015 PAIGE MCLAIN SAMPLE CHECKER Ot D64.9 ANEMIA, UNSPECIFIED 12/14/2015 SEBASTIAN CALDERON MD Ot E03.9 HYPOTHYROIDISM, UNSPECIFIED 12/14/2015 SEBASTIAN CALDERON MD Ot E11.21 TYPE 2 DIABETES MELLITUS WITH DIABETIC N 12/14/2015 SEBASTIAN CALDERON MD Ot I10 ESSENTIAL (PRIMARY) HYPERTENSION 12/14/2015 CHEMO PAIGE Matthews SAMPLE CHECKER Ot C83.30 DIFFUSE LARGE B-CELL LYMPHOMA, UNSPECIFI 12/14/2015 FLORES MATTHEWS CLINICAL COORDINATOR Ot J18.9 PNEUMONIA, UNSPECIFIED ORGANISM 12/14/2015 SEBASTIAN CALDERON MD Ot E11.9 TYPE 2 DIABETES MELLITUS WITHOUT COMPLIC 12/14/2015 SEBASTIAN CALDERON MD Ot G43.A0 CYCLICAL VOMITING, NOT INTRACTABLE 12/14/2015 SEBASTIAN CALDERON MD Ot N19 UNSPECIFIED KIDNEY FAILURE 12/14/2015 SEBASTIAN CALDERON MD Ot Z99.2 DEPENDENCE ON RENAL DIALYSIS 12/14/2015 TRAVON AN SAMPLE CHECKER Ot K59.00 CONSTIPATION, UNSPECIFIED 12/14/2015 TRAVON AN SAMPLE CHECKER Ot R31.9 HEMATURIA, UNSPECIFIED 12/14/2015 TRAVON AN SAMPLE CHECKER Ot R82.99 OTHER ABNORMAL FINDINGS IN URINE 12/14/2015 TRAVON AN SAMPLE CHECKER Ot R29.6 REPEATED FALLS 12/14/2015 TRAVON AN SAMPLE CHECKER Ot R51 HEADACHE 12/14/2015 SHIRA DORANTES Ot C85.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, UNSPE 12/14/2015 SHIRA DORANTES Ot D63.1 ANEMIA IN CHRONIC KIDNEY DISEASE 12/14/2015 SHIRA DORANTES Ot E03.9 HYPOTHYROIDISM, UNSPECIFIED 12/14/2015 SHIRA DORANTES N Ot E11.9 TYPE 2 DIABETES MELLITUS WITHOUT COMPLIC 12/14/2015 SHIRA DORANTES N Ot E78.5 HYPERLIPIDEMIA, UNSPECIFIED 12/14/2015 SHIRA DORANTES N Ot G47.30 SLEEP APNEA, UNSPECIFIED 12/14/2015 SHIRA DORANTES N Ot G60.9 HEREDITARY AND IDIOPATHIC NEUROPATHY, UN 12/14/2015 SHIRA DORANTES N Ot I12.9 HYPERTENSIVE CHRONIC KIDNEY DISEASE W ST 12/14/2015 SHIRA DORANTES Ot I25.10 ATHSCL HEART DISEASE OF [place] CORONARY 12/14/2015 SHIRA DORANTES Ot N18.4 CHRONIC KIDNEY DISEASE, STAGE 4 (SEVERE) 12/14/2015 SHIRA DORANTES Ot 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 12/14/2015 SHIRA DORANTES Ot Z79.899 OTHER SURFACE LAY OUT TECHNICIAN (CURRENT) DRUG THERAPY 12/14/2015 SHIRA DORANTES Ot Z98.61 CORONARY ANGIOPLASTY STATUS 12/14/2015 SEBASTIAN CALDERON MD Ot E03.9 HYPOTHYROIDISM, UNSPECIFIED 12/14/2015 SEBASTIAN CALDERON MD Ot E11.9 TYPE 2 DIABETES MELLITUS WITHOUT COMPLIC 12/14/2015 SEBASTIAN CALDERON MD Ot I10 ESSENTIAL (PRIMARY) HYPERTENSION 12/14/2015 TRAVON AN Ot E03.9 HYPOTHYROIDISM, UNSPECIFIED 12/14/2015 TRAVON ANP Ot E11.9 TYPE 2 DIABETES MELLITUS WITHOUT COMPLIC 12/14/2015 TRAVON ANP Ot I10 ESSENTIAL (PRIMARY) HYPERTENSION 12/14/2015 DAVID CEJA DO Ot F41.9 ANXIETY DISORDER, UNSPECIFIED 12/14/2015 DAVID CEJA DO Ot N18.3 CHRONIC KIDNEY DISEASE, STAGE 3 (MODERAT 12/14/2015 DAVID CEJA DO Ot R05 COUGH 12/14/2015 SEBASTIAN CALDERON MD, Ot E03.9 HYPOTHYROIDISM, UNSPECIFIED 12/14/2015 SEBASTIAN CALDERON MD Ot E11.9 TYPE 2 DIABETES MELLITUS WITHOUT COMPLIC 12/14/2015 SEBASTIAN CALDERON MD, Ot I10 ESSENTIAL (PRIMARY) HYPERTENSION 12/14/2015 SEBASTIAN CALDERON MD, Ot E03.9 HYPOTHYROIDISM, UNSPECIFIED 12/14/2015 SEBASTIAN CALDERON MD Ot E11.9 TYPE 2 DIABETES MELLITUS WITHOUT COMPLIC 12/14/2015 SEBASTIAN CALDERON MD, Ot I10 ESSENTIAL (PRIMARY) HYPERTENSION 12/22/2015 SHIRA DORANTES Ot C85.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, UNSPE 12/22/2015 SHIRA DORANTES Ot D63.1 ANEMIA IN CHRONIC KIDNEY DISEASE 12/22/2015 SHIRA DORANTES Ot E03.9 HYPOTHYROIDISM, UNSPECIFIED 12/22/2015 SHIRA DORANTES Ot E11.9 TYPE 2 DIABETES MELLITUS WITHOUT COMPLIC 12/22/2015 JAYNA, BOBAN N Ot E78.5 HYPERLIPIDEMIA, UNSPECIFIED 12/22/2015 JAYNA BOBAN N Ot G47.30 SLEEP APNEA, UNSPECIFIED 12/22/2015 JAYNA BOBAN N Ot G60.9 HEREDITARY AND IDIOPATHIC NEUROPATHY, UN 12/22/2015 JAYNA, BOBAN N Ot I12.9 HYPERTENSIVE CHRONIC KIDNEY DISEASE W ST 12/22/2015 JAYNA, MARYAN N Ot I25.10 ATHSCL HEART DISEASE OF [place] CORONARY 12/22/2015 JAYNA, BOBAN N Ot N18.4 CHRONIC KIDNEY DISEASE, STAGE 4 (SEVERE) 12/22/2015 JAYNA, MARYAN N Ot 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 12/22/2015 JAYNA, SHIRA N Ot Z79.899 OTHER SURFACE LAY OUT TECHNICIAN (CURRENT) DRUG THERAPY 12/22/2015 JAYNA, SHIRA N Ot Z98.61 CORONARY ANGIOPLASTY STATUS 01/02/2016 TRAVON AN SAMPLE CHECKER Ot E03.9 HYPOTHYROIDISM, UNSPECIFIED 01/02/2016 TRAVON AN SAMPLE CHECKER Ot E11.9 TYPE 2 DIABETES MELLITUS WITHOUT COMPLIC 01/02/2016 TRAVON AN SAMPLE CHECKER Ot I10 ESSENTIAL (PRIMARY) HYPERTENSION 01/17/2016 JAYNA, MARYAN N Ot C85.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, UNSPE 01/17/2016 SHIRA DORANTES N Ot D63.1 ANEMIA IN CHRONIC KIDNEY DISEASE 01/17/2016 JAYNA, MARYAN N Ot E03.9 HYPOTHYROIDISM, UNSPECIFIED 01/17/2016 JAYNAMARYAN N Ot E11.9 TYPE 2 DIABETES MELLITUS WITHOUT COMPLIC 01/17/2016 JAYNA BOBAN N Ot E78.5 HYPERLIPIDEMIA, UNSPECIFIED 01/17/2016 JAYNA BOBAN N Ot G47.30 SLEEP APNEA, UNSPECIFIED 01/17/2016 JAYAN BOBAN N Ot G60.9 HEREDITARY AND IDIOPATHIC NEUROPATHY, UN 01/17/2016 JAYNA BOBAN N Ot I12.9 HYPERTENSIVE CHRONIC KIDNEY DISEASE W ST 01/17/2016 JAYNA BOBAN N Ot I25.10 ATHSCL HEART DISEASE OF [place] CORONARY 01/17/2016 JAYNA, MARYAN N Ot N18.4 CHRONIC KIDNEY DISEASE, STAGE 4 (SEVERE) 01/17/2016 JAYNAMARYAN N Ot 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 01/17/2016 SHIRA DORANTES Ot Z79.899 OTHER PENITENTIARY (CURRENT) DRUG THERAPY 01/17/2016 SHIRA DORANTES Gen Ot Z98.61 CORONARY ANGIOPLASTY STATUS 01/17/2016 SHIRA DORANTES Ot C85.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, UNSPE 01/17/2016 SHIRA DORANTES Gen Ot D63.1 ANEMIA IN CHRONIC KIDNEY DISEASE 01/17/2016 SHIRA DORANTES Gen Ot E03.9 HYPOTHYROIDISM, UNSPECIFIED 01/17/2016 SHIRA DORANTES N Ot E11.9 TYPE 2 DIABETES MELLITUS WITHOUT COMPLIC 01/17/2016 SHIRA DORANTES Gen Ot E78.5 HYPERLIPIDEMIA, UNSPECIFIED 01/17/2016 SHIRA DORANTES N Ot G47.30 SLEEP APNEA, UNSPECIFIED 01/17/2016 SHIRA DORANTES Gen Ot G60.9 HEREDITARY AND IDIOPATHIC NEUROPATHY, UN 01/17/2016 SHIRA DORANTES Gen Ot I12.9 HYPERTENSIVE CHRONIC KIDNEY DISEASE W ST 01/17/2016 SHIRA DORANTES Gen Ot I25.10 ATHSCL HEART DISEASE OF [place] CORONARY 01/17/2016 SHIRA DORANTES Gen Ot N18.4 CHRONIC KIDNEY DISEASE, STAGE 4 (SEVERE) 01/17/2016 SHIRA DORANTES Gen Ot Z79.4 PENITENTIARY (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 01/17/2016 SHIRA DORANTES Ot Z79.899 OTHER PENITENTIARY (CURRENT) DRUG THERAPY 01/17/2016 SHIRA DORANTES Ot Z98.61 CORONARY ANGIOPLASTY STATUS 01/25/2016 Ot 202.80 OTH LYMPHOMAS EXTRANODAL SOLID ORGAN U 01/25/2016 Ot 250.00 DIAB CÉSAR WO COMPL, TYPE II OR UNSPEC TY 01/25/2016 Ot 401.9 HYPERTENSION NOS 01/25/2016 Ot 780.79 OTH MALAISE FATIGUE 01/25/2016 Ot 784.0 HEADACHE 01/25/2016 Ot 787.02 NAUSEA ALONE 01/28/2016 DAVID CEJA DO Ot F41.9 ANXIETY DISORDER, UNSPECIFIED 01/28/2016 DAVID CEJA DO Ot N18.3 CHRONIC KIDNEY DISEASE, STAGE 3 (MODERAT 01/28/2016 DAVID CEJA DO Ot R05 COUGH 02/19/2016 CELESTINE MASSEY, MARKY Caputo Ot N18.4 CHRONIC KIDNEY DISEASE, STAGE 4 (SEVERE) 02/20/2016 SHIRA DORANTES Ot C85.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, UNSPE 02/20/2016 SHIRA DORANTES Gen Ot D63.1 ANEMIA IN CHRONIC KIDNEY DISEASE 02/20/2016 SHIRA DORANTES Gen Ot E03.9 HYPOTHYROIDISM, UNSPECIFIED 02/20/2016 SHIRA DORANTES Gen Ot E11.9 TYPE 2 DIABETES MELLITUS WITHOUT COMPLIC 02/20/2016 SHIRA DORANTES Gen Ot E78.5 HYPERLIPIDEMIA, UNSPECIFIED 02/20/2016 SHIRA DORANTES Gen Ot G47.30 SLEEP APNEA, UNSPECIFIED 02/20/2016 SHIRA DORANTES Gen Ot G60.9 HEREDITARY AND IDIOPATHIC NEUROPATHY, UN 02/20/2016 SHIRA DORANTES Gen Ot I12.9 HYPERTENSIVE CHRONIC KIDNEY DISEASE W ST 02/20/2016 SHIRA DORANTES Gen Ot I25.10 ATHSCL HEART DISEASE OF [place] CORONARY 02/20/2016 SHIRA DORANTES Gen Ot N18.4 CHRONIC KIDNEY DISEASE, STAGE 4 (SEVERE) 02/20/2016 SHIRA DORANTES Gen Ot Z79.4 PENITENTIARY (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 02/20/2016 SHIRA DORANTES Gen Ot Z79.899 OTHER PENITENTIARY (CURRENT) DRUG THERAPY 02/20/2016 SHIRA DORANTES Gen Ot Z98.61 CORONARY ANGIOPLASTY STATUS 02/22/2016 CELESTINE MASSEY, MARKY M Ot N18.4 CHRONIC KIDNEY DISEASE, STAGE 4 (SEVERE) 02/22/2016 MARKY SPRAGUE MD M Ot N18.4 CHRONIC KIDNEY DISEASE, STAGE 4 (SEVERE) 02/22/2016 MARKY SPRAGUE MD M Ot N18.4 CHRONIC KIDNEY DISEASE, STAGE 4 (SEVERE) 02/22/2016 MARKY SPRAGUE MD M Ot N18.4 CHRONIC KIDNEY DISEASE, STAGE 4 (SEVERE) 02/22/2016 MARKY SPRAGUE MD M Ot N18.4 CHRONIC KIDNEY DISEASE, STAGE 4 (SEVERE) 03/06/2016 MARKY SPRAGUE MD M Ot N18.5 CHRONIC KIDNEY DISEASE, STAGE 5 03/06/2016 MARKY SPRAGUE MD M Ot N18.5 CHRONIC KIDNEY DISEASE, STAGE 5 03/06/2016 MARKY SPRAGUE MD M Ot N18.5 CHRONIC KIDNEY DISEASE, STAGE 5 03/06/2016 CELESTINE MASSEY, MARKY Caputo Ot N18.5 CHRONIC KIDNEY DISEASE, STAGE 5 03/06/2016 SHIRA DORANTES Ot C85.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, UNSPE 03/06/2016 JAYNASHIRA N Ot D63.1 ANEMIA IN CHRONIC KIDNEY DISEASE 03/06/2016 SHIRA DORANTES N Ot E03.9 HYPOTHYROIDISM, UNSPECIFIED 03/06/2016 JAYNASHIRA N Ot E11.9 TYPE 2 DIABETES MELLITUS WITHOUT COMPLIC 03/06/2016 JAYNASHIRA N Ot E78.5 HYPERLIPIDEMIA, UNSPECIFIED 03/06/2016 JAYNASHIRA N Ot G47.30 SLEEP APNEA, UNSPECIFIED 03/06/2016 JAYNASHIRA N Ot G60.9 HEREDITARY AND IDIOPATHIC NEUROPATHY, UN 03/06/2016 JAYNASHIRA CONRAD N Ot I12.9 HYPERTENSIVE CHRONIC KIDNEY DISEASE W ST 03/06/2016 JAYNASHIRA CONRAD N Ot I25.10 ATHSCL HEART DISEASE OF [place] CORONARY 03/06/2016 JAYNASHIRA N Ot N18.4 CHRONIC KIDNEY DISEASE, STAGE 4 (SEVERE) 03/06/2016 JAYNASHIRA CONRAD N Ot Z79.4 PENITENTIARY (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 03/06/2016 JAYNASHIRA CONRAD N Ot Z79.899 OTHER PENITENTIARY (CURRENT) DRUG THERAPY 03/06/2016 JAYNAMARYJALEESA N Ot Z98.61 CORONARY ANGIOPLASTY STATUS 03/11/2016 CELESTINE MASSEY, MARKY Caputo Ot N18.4 CHRONIC KIDNEY DISEASE, STAGE 4 (SEVERE) 03/14/2016 SEBASTIAN CALDERON MD Ot E11.21 TYPE 2 DIABETES MELLITUS WITH DIABETIC N 03/15/2016 SEBASTIAN CALDERON MD Ot E03.9 HYPOTHYROIDISM, UNSPECIFIED 03/15/2016 SEBASTIAN CALDERON MD Ot E11.21 TYPE 2 DIABETES MELLITUS WITH DIABETIC N 03/26/2016 KASSY SPRAGUE MD Ot N18.5 CHRONIC KIDNEY DISEASE, STAGE 5 04/09/2016 SEBASTIAN CALDERON MD Ot E03.9 HYPOTHYROIDISM, UNSPECIFIED 04/09/2016 SEBASTIAN CALDERON MD Ot E11.21 TYPE 2 DIABETES MELLITUS WITH DIABETIC N 04/11/2016 SHIRA DORANTES N Ot C85.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, UNSPE 04/11/2016 SHIRA DORANTES Gen Ot D63.1 ANEMIA IN CHRONIC KIDNEY DISEASE 04/11/2016 SHIRA DORANTES Gen Ot E03.9 HYPOTHYROIDISM, UNSPECIFIED 04/11/2016 SHIRA DORANTES Gen Ot E11.9 TYPE 2 DIABETES MELLITUS WITHOUT COMPLIC 04/11/2016 SHIRA DORANTES Gen Ot E78.5 HYPERLIPIDEMIA, UNSPECIFIED 04/11/2016 SHIRA DORANTES Gen Ot G47.30 SLEEP APNEA, UNSPECIFIED 04/11/2016 SHIRA DORANTES Gen Ot G60.9 HEREDITARY AND IDIOPATHIC NEUROPATHY, UN 04/11/2016 SHIRA DORANTES Gen Ot I12.9 HYPERTENSIVE CHRONIC KIDNEY DISEASE W ST 04/11/2016 SHIRA DORANTES Gen Ot I25.10 ATHSCL HEART DISEASE OF [place] CORONARY 04/11/2016 SHIRA DORANTES Gen Ot N18.4 CHRONIC KIDNEY DISEASE, STAGE 4 (SEVERE) 04/11/2016 SHIRA DORANTES Gen Ot Z79.4 PENITENTIARY (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 04/11/2016 SHIRA DORANTES Gen Ot Z79.899 OTHER PENITENTIARY (CURRENT) DRUG THERAPY 04/11/2016 SHIRA DORANTES Gen Ot Z98.61 CORONARY ANGIOPLASTY STATUS 04/12/2016 WILLA MIRAMONTES MD Ot E11.9 TYPE 2 DIABETES MELLITUS WITHOUT COMPLIC 04/12/2016 WILLA MIRAMONTES MD Ot I12.0 HYP CHR KIDNEY DISEASE W STAGE 5 CHR KID 04/12/2016 WILLA MIRAMONTES MD, Ot I25.10 ATHSCL HEART DISEASE OF [place] CORONARY 04/12/2016 WILLA MIRAMONTES MD Ot I48.2 CHRONIC ATRIAL FIBRILLATION 04/12/2016 WILLA MIRAMONTES MD Ot N18.6 END STAGE RENAL DISEASE 04/12/2016 WILLA MIRAMONTES MD, Ot R41.0 DISORIENTATION, UNSPECIFIED 04/12/2016 WILLA MIRAMONTES MD Ot R41.82 ALTERED MENTAL STATUS, UNSPECIFIED 04/12/2016 WILLA MIRAMONTES MD Ot T85.611A BREAKDOWN OF INTRAPERITONEAL DIALYSIS CA 04/12/2016 WILLA MIRAMONTES MD Ot Z79.4 PENITENTIARY (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 04/12/2016 WILLA MIRAMONTES MD Ot Z79.82 PENITENTIARY (CURRENT) USE OF ASPIRIN 04/12/2016 WILLA MIRAMONTES MD Ot Z79.899 OTHER SURFACE LAY OUT TECHNICIAN (CURRENT) DRUG THERAPY 04/12/2016 WILLA MIRAMONTES MD Ot Z85.850 PERSONAL HISTORY OF MALIGNANT NEOPLASM O 04/12/2016 WILLA MIRAMONTES MD Ot Z99.2 DEPENDENCE ON RENAL DIALYSIS 04/12/2016 WILLA MIRAMONTES MD Ot E11.9 TYPE 2 DIABETES MELLITUS WITHOUT COMPLIC 04/12/2016 WILLA MIRAMONTES MD Ot I12.0 HYP CHR KIDNEY DISEASE W STAGE 5 CHR KID 04/12/2016 WILLA MIRAMONTES MD Ot I25.10 ATHSCL HEART DISEASE OF [place] CORONARY 04/12/2016 WILLA MIRAMONTES MD Ot I48.2 CHRONIC ATRIAL FIBRILLATION 04/12/2016 WILLA MIRAMONTES MD Ot N18.6 END STAGE RENAL DISEASE 04/12/2016 WILLA MIRAMOTNES MD Ot R41.0 DISORIENTATION, UNSPECIFIED 04/12/2016 WILLA MIRAMONTES MD Ot R41.82 ALTERED MENTAL STATUS, UNSPECIFIED 04/12/2016 WILLA MIRAMONTES MD Ot T85.611A BREAKDOWN OF INTRAPERITONEAL DIALYSIS CA 04/12/2016 WILLA MIRAMONTES MD Ot Z79.4 PENITENTIARY (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 04/12/2016 WILLA MIRAMONTES MD Ot Z79.82 PENITENTIARY (CURRENT) USE OF ASPIRIN 04/12/2016 WILLA MIRAMONTES MD Ot Z79.899 OTHER PENITENTIARY (CURRENT) DRUG THERAPY 04/12/2016 WILLA MIRAMONTES MD Ot Z85.850 PERSONAL HISTORY OF MALIGNANT NEOPLASM O 04/12/2016 WILLA MIRAMONTES MD Ot Z99.2 DEPENDENCE ON RENAL DIALYSIS 04/13/2016 WILLA MIRAMONTES MD Ot E11.9 TYPE 2 DIABETES MELLITUS WITHOUT COMPLIC 04/13/2016 WILLA MIRAMONTES MD Ot I12.0 HYP CHR KIDNEY DISEASE W STAGE 5 CHR KID 04/13/2016 WILLA MIRAMONTES MD Ot I25.10 ATHSCL HEART DISEASE OF [place] CORONARY 04/13/2016 WILLA MIRAMONTES MD Ot I48.2 CHRONIC ATRIAL FIBRILLATION 04/13/2016 WILLA MIRAMONTES MD Ot N18.6 END STAGE RENAL DISEASE 04/13/2016 WILLA MIRAMONTES MD Ot R41.0 DISORIENTATION, UNSPECIFIED 04/13/2016 WILLA MIRAMONTES MD Ot R41.82 ALTERED MENTAL STATUS, UNSPECIFIED 04/13/2016 WILLA MIRAMONTES MD Ot T85.611A BREAKDOWN OF INTRAPERITONEAL DIALYSIS CA 04/13/2016 WILLA MIRAMONTES MD Ot Z79.4 PENITENTIARY (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 04/13/2016 WILLA MIRAMONTES MD Ot Z79.82 SURFACE LAY OUT TECHNICIAN (CURRENT) USE OF ASPIRIN 04/13/2016 WILLA MIRAMONTES MD, Ot Z79.899 OTHER PENITENTIARY (CURRENT) DRUG THERAPY 04/13/2016 WILLA MIRAMONTES MD Ot Z85.850 PERSONAL HISTORY OF MALIGNANT NEOPLASM O 04/13/2016 WILLA MIRAMONTES MD Ot Z99.2 DEPENDENCE ON RENAL DIALYSIS 04/17/2016 WILLA MIRAMONTES MD Ot E11.9 TYPE 2 DIABETES MELLITUS WITHOUT COMPLIC 04/17/2016 WILLA MIRAMONTES MD Ot I12.0 HYP CHR KIDNEY DISEASE W STAGE 5 CHR KID 04/17/2016 WILLA MIRAMONTES MD Ot I25.10 ATHSCL HEART DISEASE OF [place] CORONARY 04/17/2016 WILLA MIRAMONTES MD Ot I48.2 CHRONIC ATRIAL FIBRILLATION 04/17/2016 WILLA MIRAMONTES MD, Ot N18.6 END STAGE RENAL DISEASE 04/17/2016 WILLA MIRAMONTES MD Ot R41.0 DISORIENTATION, UNSPECIFIED 04/17/2016 WILLA MIRAMONTES MD, Ot R41.82 ALTERED MENTAL STATUS, UNSPECIFIED 04/17/2016 WILLA MIRAMONTES MD, Ot T85.611A BREAKDOWN OF INTRAPERITONEAL DIALYSIS CA 04/17/2016 WILLA MIRAMONTES MD, Ot 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 04/17/2016 WILLA MIRAMONTES MD Ot Z79.82 SURFACE LAY OUT TECHNICIAN (CURRENT) USE OF ASPIRIN 04/17/2016 WILLA MIRAMONTES MD Ot Z79.899 OTHER PENITENTIARY (CURRENT) DRUG THERAPY 04/17/2016 WILLA MIRAMONTES MD Ot Z85.850 PERSONAL HISTORY OF MALIGNANT NEOPLASM O 04/17/2016 KULWINDER MASSEY, WILLA Fernandez Ot Z99.2 DEPENDENCE ON RENAL DIALYSIS 04/18/2016 MARY DORANTESJALEESA Blevins Ot C85.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, UNSPE 04/18/2016 SHIRA DORANTES Gen Ot D63.1 ANEMIA IN CHRONIC KIDNEY DISEASE 04/18/2016 JAYNASHIRA Ot E03.9 HYPOTHYROIDISM, UNSPECIFIED 04/18/2016 JAYNASHIRA Ot E11.9 TYPE 2 DIABETES MELLITUS WITHOUT COMPLIC 04/18/2016 JAYNASHIRA Ot E78.5 HYPERLIPIDEMIA, UNSPECIFIED 04/18/2016 JAYNASHIRA Ot G47.30 SLEEP APNEA, UNSPECIFIED 04/18/2016 JAYNASHIRA Ot G60.9 HEREDITARY AND IDIOPATHIC NEUROPATHY, UN 04/18/2016 JAYNASHIRA Ot I12.9 HYPERTENSIVE CHRONIC KIDNEY DISEASE W ST 04/18/2016 JAYNASHIRA Ot I25.10 ATHSCL HEART DISEASE OF [place] CORONARY 04/18/2016 JAYNASHIRA Ot N18.4 CHRONIC KIDNEY DISEASE, STAGE 4 (SEVERE) 04/18/2016 SHIRA DORANTES Ot 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 04/18/2016 SHIRA DORANTES Ot Z79.899 OTHER PENITENTIARY (CURRENT) DRUG THERAPY 04/18/2016 JAYNASHIRA Ot Z98.61 CORONARY ANGIOPLASTY STATUS 04/19/2016 JYOTI DUENAS Ot E11.9 TYPE 2 DIABETES MELLITUS WITHOUT COMPLIC 04/19/2016 JYOTI DUENAS Ot I12.0 HYP CHR KIDNEY DISEASE W STAGE 5 CHR KID 04/19/2016 JYOTI DUENAS Ot N18.6 END STAGE RENAL DISEASE 04/19/2016 JYOTI DUENAS Ot R33.9 RETENTION OF URINE, UNSPECIFIED 04/19/2016 JYOTI DUENAS Ot 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 04/19/2016 JYOTI DUENAS Ot Z79.82 SURFACE LAY OUT TECHNICIAN (CURRENT) USE OF ASPIRIN 04/19/2016 JYOTI DUENAS Ot Z79.899 OTHER PENITENTIARY (CURRENT) DRUG THERAPY 04/19/2016 JYOTI DUENAS Ot Z85.72 PERSONAL HISTORY OF NON-HODGKIN LYMPHOMA 04/19/2016 JYOTI DUENAS Ot Z85.850 PERSONAL HISTORY OF MALIGNANT NEOPLASM O 04/19/2016 JYOTI DUENAS Ot Z92.21 PERSONAL HISTORY OF ANTINEOPLASTIC CHEMO 04/19/2016 JYOTI DUENAS Ot Z95.5 PRESENCE OF CORONARY ANGIOPLASTY IMPLANT 04/19/2016 JYOTI DUENAS Ot Z98.890 OTHER SPECIFIED POSTPROCEDURAL STATES 04/19/2016 JYOTI DUENAS Ot Z99.2 DEPENDENCE ON RENAL DIALYSIS 04/20/2016 JYOTI DUENAS Ot E11.9 TYPE 2 DIABETES MELLITUS WITHOUT COMPLIC 04/20/2016 JYOTI DUENAS Ot I12.0 HYP CHR KIDNEY DISEASE W STAGE 5 CHR KID 04/20/2016 JYOTI DUENAS Ot I25.10 ATHSCL HEART DISEASE OF [place] CORONARY 04/20/2016 JYOTI DUENAS Ot I48.2 CHRONIC ATRIAL FIBRILLATION 04/20/2016 JYOTI DUENAS Ot N18.6 END STAGE RENAL DISEASE 04/20/2016 JYOTI DUENAS Ot R33.9 RETENTION OF URINE, UNSPECIFIED 04/20/2016 JYOTI DUENAS Ot Z46.6 ENCOUNTER FOR FITTING AND ADJUSTMENT OF 04/20/2016 JYOTI DUENAS Ot Z79.4 PENITENTIARY (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 04/20/2016 JYOTI DUENAS Ot Z79.82 PENITENTIARY (CURRENT) USE OF ASPIRIN 04/20/2016 JYOTI DUENAS Ot Z79.899 OTHER PENITENTIARY (CURRENT) DRUG THERAPY 04/20/2016 JYOTI DUENAS Ot Z85.72 PERSONAL HISTORY OF NON-HODGKIN LYMPHOMA 04/20/2016 JYOTI DUENAS Ot Z85.850 PERSONAL HISTORY OF MALIGNANT NEOPLASM O 04/20/2016 JYOTI DUENAS Ot Z95.5 PRESENCE OF CORONARY ANGIOPLASTY IMPLANT 04/20/2016 JYOTI DUENAS Ot Z99.2 DEPENDENCE ON RENAL DIALYSIS 04/22/2016 JYOTI DUENAS Ot E11.9 TYPE 2 DIABETES MELLITUS WITHOUT COMPLIC 04/22/2016 JYOTI DUENAS Ot I12.0 HYP CHR KIDNEY DISEASE W STAGE 5 CHR KID 04/22/2016 JYOTI DUENAS Ot N18.6 END STAGE RENAL DISEASE 04/22/2016 JYOTI DUENAS Ot R33.9 RETENTION OF URINE, UNSPECIFIED 04/22/2016 JYOTI DUENAS Ot 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 04/22/2016 JYOTI DUENAS Ot Z79.82 SURFACE LAY OUT TECHNICIAN (CURRENT) USE OF ASPIRIN 04/22/2016 JYOTI DUENAS Ot Z79.899 OTHER PENITENTIARY (CURRENT) DRUG THERAPY 04/22/2016 JYOTI DUENAS Ot Z85.72 PERSONAL HISTORY OF NON-HODGKIN LYMPHOMA 04/22/2016 JYOTI DUENAS Ot Z85.850 PERSONAL HISTORY OF MALIGNANT NEOPLASM O 04/22/2016 JYOTI DUENAS Ot Z92.21 PERSONAL HISTORY OF ANTINEOPLASTIC CHEMO 04/22/2016 JYOTI DUENAS Ot Z95.5 PRESENCE OF CORONARY ANGIOPLASTY IMPLANT 04/22/2016 JYOTI DUENAS Ot Z98.890 OTHER SPECIFIED POSTPROCEDURAL STATES 04/22/2016 JYOTI DUENAS Ot Z99.2 DEPENDENCE ON RENAL DIALYSIS 04/22/2016 JYOTI DUENAS Ot E11.9 TYPE 2 DIABETES MELLITUS WITHOUT COMPLIC 04/22/2016 JYOTI DUENAS Ot I12.0 HYP CHR KIDNEY DISEASE W STAGE 5 CHR KID 04/22/2016 JYOTI DUENAS Ot I25.10 ATHSCL HEART DISEASE OF [place] CORONARY 04/22/2016 JYOTI DUENAS Ot I48.2 CHRONIC ATRIAL FIBRILLATION 04/22/2016 JYOTI DUENAS Ot N18.6 END STAGE RENAL DISEASE 04/22/2016 JYOTI DUENAS Ot R33.9 RETENTION OF URINE, UNSPECIFIED 04/22/2016 JYOTI DUENAS Ot Z46.6 ENCOUNTER FOR FITTING AND ADJUSTMENT OF 04/22/2016 JYOTI DUENAS Ot Z79.4 PENITENTIARY (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 04/22/2016 JYOTI DUENAS Ot Z79.82 SURFACE LAY OUT TECHNICIAN (CURRENT) USE OF ASPIRIN 04/22/2016 JYOTI DUENAS Ot Z79.899 OTHER PENITENTIARY (CURRENT) DRUG THERAPY 04/22/2016 JYOTI DUENAS Ot Z85.72 PERSONAL HISTORY OF NON-HODG[place]IN LYMPHOMA 04/22/2016 JYOTI DUENAS Ot Z85.850 PERSONAL HISTORY OF MALIGNANT NEOPLASM O 04/22/2016 JYOTI DUENAS Ot Z95.5 PRESENCE OF CORONARY ANGIOPLASTY IMPLANT 04/22/2016 JYOTI DUENAS Ot Z99.2 DEPENDENCE ON RENAL DIALYSIS 04/22/2016 JYOTI DUENAS Ot E11.9 TYPE 2 DIABETES MELLITUS WITHOUT COMPLIC 04/22/2016 JYOTI DUENAS Ot I12.0 HYP CHR KIDNEY DISEASE W STAGE 5 CHR KID 04/22/2016 JYOTI DUENAS Ot I25.10 ATHSCL HEART DISEASE OF [place] CORONARY 04/22/2016 JYOTI DUENAS Ot I48.2 CHRONIC ATRIAL FIBRILLATION 04/22/2016 JYOTI DUENAS Ot N18.6 END STAGE RENAL DISEASE 04/22/2016 JYOTI DUENAS Ot R33.9 RETENTION OF URINE, UNSPECIFIED 04/22/2016 JYOTI DUENAS Ot Z46.6 ENCOUNTER FOR FITTING AND ADJUSTMENT OF 04/22/2016 JYOTI DUENAS Ot Z79.4 PENITENTIARY (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 04/22/2016 JYOTI DUENAS Ot Z79.82 SURFACE LAY OUT TECHNICIAN (CURRENT) USE OF ASPIRIN 04/22/2016 JYOTI DUENAS Ot Z79.899 OTHER SURFACE LAY OUT TECHNICIAN (CURRENT) DRUG THERAPY 04/22/2016 JYOTI DUENAS Ot Z85.72 PERSONAL HISTORY OF NON-H[place]IN LYMPHOMA 04/22/2016 JYOTI DUENAS Ot Z85.850 PERSONAL HISTORY OF MALIGNANT NEOPLASM O 04/22/2016 JYOTI DUENAS Ot Z95.5 PRESENCE OF CORONARY ANGIOPLASTY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 (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 08/22/2017 CHEMO PAIGE Matthews SAMPLE CHECKER Ot Z79.899 OTHER PENITENTIARY (CURRENT) DRUG THERAPY 08/22/2017 CHEMO PAIGE Matthews SAMPLE CHECKER Ot Z98.61 CORONARY ANGIOPLASTY STATUS 08/22/2017 CHEMO PAIGE Mattehws SAMPLE CHECKER Ot Z99.2 DEPENDENCE ON RENAL DIALYSIS 08/22/2017 TRAVON ANP Ot E11.21 TYPE 2 DIABETES MELLITUS WITH DIABETIC N 08/22/2017 PAIGE MCLAIN Byron SAMPLE CHECKER Ot D64.9 ANEMIA, UNSPECIFIED 08/22/2017 SEBASTIAN CALDERON MD Ot E03.9 HYPOTHYROIDISM, UNSPECIFIED 08/22/2017 YUMIKO MASSEY, SEBASTIAN Arvizu Ot E11.21 TYPE 2 DIABETES MELLITUS WITH DIABETIC N 08/22/2017 YUMIKO MASSEY, SEBASTIAN Arvizu Ot I10 ESSENTIAL (PRIMARY) HYPERTENSION 08/22/2017 PAIGE MCLAIN SAMPLE CHECKER Ot C83.30 DIFFUSE LARGE B-CELL LYMPHOMA, UNSPECIFI 08/22/2017 FLORES MATTHEWS APRN Ot J18.9 PNEUMONIA, UNSPECIFIED ORGANISM 08/22/2017 SEBASTIAN CALDERON MD Ot E11.9 TYPE 2 DIABETES MELLITUS WITHOUT COMPLIC 08/22/2017 SEBASTIAN CALDERON MD Ot G43.A0 CYCLICAL VOMITING, NOT INTRACTABLE 08/22/2017 YUMIKO MASSEY, SEBASTIAN Arvizu Ot N19 UNSPECIFIED KIDNEY FAILURE 08/22/2017 YUMIKO MASSEY, SEBASTIAN Arvizu Ot Z99.2 DEPENDENCE ON RENAL DIALYSIS 08/22/2017 NATALIYA TRAVON M SAMPLE CHECKER Ot K59.00 CONSTIPATION, UNSPECIFIED 08/22/2017 TRAVON AN SAMPLE CHECKER Ot R31.9 HEMATURIA, UNSPECIFIED 08/22/2017 NATALIYATRAVON Harshal SAMPLE CHECKER Ot R82.99 OTHER ABNORMAL FINDINGS IN URINE 08/22/2017 TRAVON AN SAMPLE CHECKER Ot R29.6 REPEATED FALLS 08/22/2017 TRAVON AN SAMPLE CHECKER Ot R51 HEADACHE 08/22/2017 SEBASTIAN CALDERON MD Ot E03.9 HYPOTHYROIDISM, UNSPECIFIED 08/22/2017 SEBASTIAN CALDERON MD Ot E11.9 TYPE 2 DIABETES MELLITUS WITHOUT COMPLIC 08/22/2017 SEBASTIAN CALDERON MD Ot I10 ESSENTIAL (PRIMARY) HYPERTENSION 08/22/2017 TRAVON AN SAMPLE CHECKER Ot E03.9 HYPOTHYROIDISM, UNSPECIFIED 08/22/2017 TRAVON ANP Ot E11.9 TYPE 2 DIABETES MELLITUS WITHOUT COMPLIC 08/22/2017 TRAVON AN SAMPLE CHECKER Ot I10 ESSENTIAL (PRIMARY) HYPERTENSION 08/22/2017 DAVID CEJA DO Ot F41.9 ANXIETY DISORDER, UNSPECIFIED 08/22/2017 DAVID CEJA DO Ot N18.3 CHRONIC KIDNEY DISEASE, STAGE 3 (MODERAT 08/22/2017 DAVID CEJA DO Ot R05 COUGH 08/22/2017 KASSY SPRAGUE MD Ot N18.4 CHRONIC KIDNEY DISEASE, STAGE 4 (SEVERE) 08/22/2017 KASSY SPRAGUE MD Ot N18.5 CHRONIC KIDNEY DISEASE, STAGE 5 08/22/2017 SEBASTIAN CALDERON MD Ot E03.9 HYPOTHYROIDISM, UNSPECIFIED 08/22/2017 SEBASTIAN CALDERON MD Ot E11.21 TYPE 2 DIABETES MELLITUS WITH DIABETIC N 08/22/2017 TRAVON ANP Ot R33.9 RETENTION OF URINE, UNSPECIFIED 08/22/2017 VIKTOR MASSEY, TEDDY Andres Ot F41.9 ANXIETY DISORDER, UNSPECIFIED 08/22/2017 TEDDY HOANG MD Ot I25.10 ATHSCL HEART DISEASE OF [place] CORONARY 08/22/2017 TEDDY HOANG MD Ot I65.23 OCCLUSION AND STENOSIS OF BILATERAL [place] 08/22/2017 TEDDY HOANG MD Ot R07.89 OTHER CHEST PAIN 08/22/2017 TEDDY HOANG MD Ot F41.9 ANXIETY DISORDER, UNSPECIFIED 08/22/2017 TEDDY HOANG MD Ot I25.10 ATHSCL HEART DISEASE OF [place] CORONARY 08/22/2017 TEDDY HOANG MD Ot I65.23 OCCLUSION AND STENOSIS OF BILATERAL [place] 08/22/2017 TEDDY HOANG MD Ot R07.89 OTHER CHEST PAIN 08/22/2017 PAIGE MCLAIN Ot C83.38 DIFFUSE LARGE B-CELL LYMPHOMA, LYMPH NOD 08/22/2017 EBONY CHOW MD, Ot I65.23 OCCLUSION AND STENOSIS OF BILATERAL [place] 08/22/2017 EBONY CHOW MD Ot Z01.810 ENCOUNTER FOR PREPROCEDURAL CARDIOVASCUL 08/22/2017 EBONY CHOW MD, Ot Z01.818 ENCOUNTER FOR OTHER PREPROCEDURAL EXAMIN 08/22/2017 EBONY CHOW MD Ot I65.23 OCCLUSION AND STENOSIS OF BILATERAL [place] 08/22/2017 EBONY CHOW MD Ot Z01.810 ENCOUNTER FOR PREPROCEDURAL CARDIOVASCUL 08/22/2017 EBONY CHOW MD, Ot Z01.818 ENCOUNTER FOR OTHER PREPROCEDURAL EXAMIN 08/22/2017 MARELY JIMENEZ APRN Ot I65.23 OCCLUSION AND STENOSIS OF BILATERAL [place] 08/22/2017 PAIGE MCLAIN Ot C83.38 DIFFUSE LARGE B-CELL LYMPHOMA, LYMPH NOD 08/22/2017 PAIGE MCLAIN Ot M47.812 SPONDYLOSIS W/O MYELOPATHY OR RADICULOPA 08/22/2017 PAIGE MCLAIN Ot Z98.890 OTHER SPECIFIED POSTPROCEDURAL STATES 08/22/2017 SHIRA DORANTES Ot C85.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, UNSPE 08/22/2017 SHIRA DORANTES Ot D63.1 ANEMIA IN CHRONIC KIDNEY DISEASE 08/22/2017 SHIRA DORANTES Ot E03.9 HYPOTHYROIDISM, UNSPECIFIED 08/22/2017 JAYNA, BOBAN N Ot E11.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 2 DIABETES MELLITUS W DIABETIC RESIDENCE 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 08/22/2017 JAYNA, BOBAN N Ot E78.5 HYPERLIPIDEMIA, UNSPECIFIED 08/22/2017 JAYNA, BOBAN N Ot G47.30 SLEEP APNEA, UNSPECIFIED 08/22/2017 JAYNA, BOBAN N Ot G60.9 HEREDITARY AND IDIOPATHIC NEUROPATHY, UN 08/22/2017 JAYNA, BOBAN N Ot I12.9 HYPERTENSIVE CHRONIC KIDNEY DISEASE W ST 08/22/2017 JAYNA, BOBAN N Ot I25.10 ATHSCL HEART DISEASE OF [place] CORONARY 08/22/2017 JAYNA, BOBAN N Ot N18.4 CHRONIC KIDNEY DISEASE, STAGE 4 (SEVERE) 08/22/2017 JAYNA, BOBAN N Ot 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 08/22/2017 JAYNA, BOBAN N Ot Z79.899 OTHER SURFACE LAY OUT TECHNICIAN (CURRENT) DRUG THERAPY 08/22/2017 JAYNA, BOBAN N Ot Z98.61 CORONARY ANGIOPLASTY STATUS 10/07/2017 JAYNA BOBAN N Ot C85.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, UNSPE 10/07/2017 JAYNA, BOBAN N Ot D63.1 ANEMIA IN CHRONIC KIDNEY DISEASE 10/07/2017 JAYNA, BOBAN N Ot E03.9 HYPOTHYROIDISM, UNSPECIFIED 10/07/2017 JAYNA, BOBAN N Ot E11.22 TYPE 2 DIABETES MELLITUS W DIABETIC [employer] 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 10/07/2017 JAYNA, BOBAN N Ot E78.5 HYPERLIPIDEMIA, UNSPECIFIED 10/07/2017 JAYNA, BOBAN N Ot G47.30 SLEEP APNEA, UNSPECIFIED 10/07/2017 JAYNA, BOBAN N Ot G60.9 HEREDITARY AND IDIOPATHIC NEUROPATHY, UN 10/07/2017 JAYNA, BOBAN N Ot I12.9 HYPERTENSIVE CHRONIC KIDNEY DISEASE W ST 10/07/2017 JAYNA, BOBAN N Ot I25.10 ATHSCL HEART DISEASE OF [place] CORONARY 10/07/2017 JAYNA, BOBAN N Ot N18.4 CHRONIC KIDNEY DISEASE, STAGE 4 (SEVERE) 10/07/2017 JAYNA, BOBAN N Ot 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 10/07/2017 JAYNA, BOBAN N Ot Z79.899 OTHER PENITENTIARY (CURRENT) DRUG THERAPY 10/07/2017 JAYNA, BOBAN N Ot Z98.61 CORONARY ANGIOPLASTY STATUS 10/17/2017 SHIRA DORANTES Gen Ot C85.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, UNSPE 10/17/2017 SHIRA DORANTES Gen Ot D63.1 ANEMIA IN CHRONIC KIDNEY DISEASE 10/17/2017 SHIRA DORANTES Gen Ot E03.9 HYPOTHYROIDISM, UNSPECIFIED 10/17/2017 JAYNA MARYJALEESA Gen Ot E11.22 TYPE 2 DIABETES MELLITUS W DIABETIC RESIDENCE 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 10/17/2017 JAYNA, SHIRA Blevins Ot E78.5 HYPERLIPIDEMIA, UNSPECIFIED 10/17/2017 JAYNA MARYJALEESA Gen Ot G47.30 SLEEP APNEA, UNSPECIFIED 10/17/2017 SHIRA DORANTES Gen Ot G60.9 HEREDITARY AND IDIOPATHIC NEUROPATHY, UN 10/17/2017 JAYNA, SHIRA Blevins Ot I12.9 HYPERTENSIVE CHRONIC KIDNEY DISEASE W ST 10/17/2017 JAYNASHIRA CONRAD Gen Ot I25.10 ATHSCL HEART DISEASE OF [place] CORONARY 10/17/2017 JAYNA, MARYJALEESA Gen Ot N18.4 CHRONIC KIDNEY DISEASE, STAGE 4 (SEVERE) 10/17/2017 JAYNASHIRA CONRAD Gen Ot Z79.4 PENITENTIARY (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 10/17/2017 SHIRA DORANTES Gen Ot Z79.899 OTHER PENITENTIARY (CURRENT) DRUG THERAPY 10/17/2017 SHIRA DORANTES Gen Ot Z98.61 CORONARY ANGIOPLASTY STATUS 10/22/2017 FLORES MATTHEWS APRN Ot R05 COUGH Procedures Code Description Performed By Performed On 00.40 04/08/2011 00.45 04/08/2011 00.66 04/08/2011 36.07 04/08/2011 37.22 04/08/2011 88.53 04/08/2011 88.56 04/08/2011 00.66 04/10/2011 33.23 05/31/2013 96.56 05/31/2013 45.16 ESOPHAGOGASTRODUODENOSCOPY [ EGD] W/CLOSE 06/20/2014 57.32 CYSTOSCOPY NEC 07/04/2014 Results Test Result Range Automated blood complete blood count (hemogram) panel - 09/19/15 14:25 Blood leukocytes automated count (number/volume) 9.5 10*3/uL 4.3-11.0 Blood erythrocytes automated count (number/volume) 3.11 10*6/uL 4.35-5.85 Venous blood hemoglobin measurement (mass/volume) 10.1 g/dL 13.3-17.7 Blood hematocrit (volume fraction) 30 % 40-54 Automated erythrocyte mean corpuscular volume 96 [foz_us] 80-99 Automated erythrocyte mean corpuscular hemoglobin (mass per erythrocyte) 32 pg 25-34 Automated erythrocyte mean corpuscular hemoglobin concentration measurement ( mass/volume) 34 g/dL 32-36 Automated erythrocyte distribution width ratio 13.3 % 10.0-14.5 Automated blood platelet count (count/volume) 189 10*3/uL 130-400 Automated blood platelet mean volume measurement 8.6 [foz_us] 7.4-10.4 Comprehensive metabolic panel - 09/19/15 14:25 Serum or plasma sodium measurement (moles/volume) 134 mmol/L 135-145 Serum or plasma potassium measurement (moles/volume) 5.3 mmol/L 3.6-5.0 Serum or plasma chloride measurement (moles/volume) 101 mmol/L 98-107 Carbon dioxide 26 mmol/L 21-32 Serum or plasma anion gap determination (moles/volume) 7 mmol/L 5-14 Serum or plasma urea nitrogen measurement (mass/volume) 66 mg/dL 7-18 Serum or plasma creatinine measurement (mass/volume) 4.74 mg/dL 0.60-1.30 Serum or plasma urea nitrogen/creatinine mass ratio 14 NRG Serum or plasma creatinine measurement with calculation of estimated glomerular filtration rate 12 NRG Serum or plasma glucose measurement (mass/volume) 134 mg/dL 70-105 Serum or plasma calcium measurement (mass/volume) 9.8 mg/dL 8.5-10.1 Serum or plasma total bilirubin measurement (mass/volume) 0.3 mg/dL 0.1-1.0 Serum or plasma alkaline phosphatase measurement (enzymatic activity/volume) 44 U/L 40-136 Serum or plasma aspartate aminotransferase measurement (enzymatic activity/ volume) 8 U/L 5-34 Serum or plasma alanine aminotransferase measurement (enzymatic activity/volume ) 10 U/L 0-55 Serum or plasma protein measurement (mass/volume) 6.5 g/dL 6.4-8.2 Serum or plasma albumin measurement (mass/volume) 4.1 g/dL 3.2-4.5 Automated blood complete blood count (hemogram) panel - 09/25/15 12:05 Blood leukocytes automated count (number/volume) 8.1 10*3/uL 4.3-11.0 Blood erythrocytes automated count (number/volume) 2.97 10*6/uL 4.35-5.85 Venous blood hemoglobin measurement (mass/volume) 9.9 g/dL 13.3-17.7 Blood hematocrit (volume fraction) 29 % 40-54 Automated erythrocyte mean corpuscular volume 98 [foz_us] 80-99 Automated erythrocyte mean corpuscular hemoglobin (mass per erythrocyte) 33 pg 25-34 Automated erythrocyte mean corpuscular hemoglobin concentration measurement ( mass/volume) 34 g/dL 32-36 Automated erythrocyte distribution width ratio 12.9 % 10.0-14.5 Automated blood platelet count (count/volume) 176 10*3/uL 130-400 Automated blood platelet mean volume measurement 9.2 [foz_us] 7.4-10.4 Complete urinalysis with reflex to culture - 09/25/15 12:05 Urine color determination YELLOW NRG Urine clarity determination CLEAR NRG Urine pH measurement by test strip 5 5-9 Specific gravity of urine by test strip 1.020 1.016- 1.022 Urine protein assay by test strip, semi-quantitative 3+ NEGATIVE Urine glucose detection by automated test strip NEGATIVE NEGATIVE Erythrocytes detection in urine sediment by light microscopy 2+ NEGATIVE Urine ketones detection by automated test strip NEGATIVE NEGATIVE Urine nitrite detection by test strip NEGATIVE NEGATIVE Urine total bilirubin detection by test strip NEGATIVE NEGATIVE Urine urobilinogen measurement by automated test strip (mass/volume) NORMAL NORMAL Urine leukocyte esterase detection by dipstick NEGATIVE NEGATIVE Automated urine sediment erythrocyte count by microscopy (number/high power field) [HPF] NRG Automated urine sediment leukocyte count by microscopy (number/high power field ) NONE NRG Bacteria detection in urine sediment by light microscopy NEGATIVE NRG Squamous epithelial cells detection in urine sediment by light microscopy NONE NRG Crystals detection in urine sediment by light microscopy NONE NRG Casts detection in urine sediment by light microscopy NONE NRG Mucus detection in urine sediment by light microscopy NEGATIVE NRG Complete urinalysis with reflex to culture NO NRG Comprehensive metabolic panel - 09/25/15 12:05 Serum or plasma sodium measurement (moles/volume) 136 mmol/L 135-145 Serum or plasma potassium measurement (moles/volume) 4.8 mmol/L 3.6-5.0 Serum or plasma chloride measurement (moles/volume) 105 mmol/L 98-107 Carbon dioxide 26 mmol/L 21-32 Serum or plasma anion gap determination (moles/volume) 5 mmol/L 5-14 Serum or plasma urea nitrogen measurement (mass/volume) 61 mg/dL 7-18 Serum or plasma creatinine measurement (mass/volume) 4.42 mg/dL 0.60-1.30 Serum or plasma urea nitrogen/creatinine mass ratio 14 NRG Serum or plasma creatinine measurement with calculation of estimated glomerular filtration rate 13 NRG Serum or plasma glucose measurement (mass/volume) 153 mg/dL 70-105 Serum or plasma calcium measurement (mass/volume) 8.8 mg/dL 8.5-10.1 Serum or plasma total bilirubin measurement (mass/volume) 0.3 mg/dL 0.1-1.0 Serum or plasma alkaline phosphatase measurement (enzymatic activity/volume) 48 U/L 40-136 Serum or plasma aspartate aminotransferase measurement (enzymatic activity/ volume) 8 U/L 5-34 Serum or plasma alanine aminotransferase measurement (enzymatic activity/volume ) 10 U/L 0-55 Serum or plasma protein measurement (mass/volume) 6.1 g/dL 6.4-8.2 Serum or plasma albumin measurement (mass/volume) 3.9 g/dL 3.2-4.5 Bacterial urine culture - 09/25/15 12:05 Bacterial urine culture [facility] Automated blood complete blood count (hemogram) panel - 10/20/15 12:57 Blood leukocytes automated count (number/volume) 7.3 10*3/uL 4.3-11.0 Blood erythrocytes automated count (number/volume) 2.91 10*6/uL 4.35-5.85 Venous blood hemoglobin measurement (mass/volume) 9.6 g/dL 13.3-17.7 Blood hematocrit (volume fraction) 29 % 40-54 Automated erythrocyte mean corpuscular volume 98 [foz_us] 80-99 Automated erythrocyte mean corpuscular hemoglobin (mass per erythrocyte) 33 pg 25-34 Automated erythrocyte mean corpuscular hemoglobin concentration measurement ( mass/volume) 34 g/dL 32-36 Automated erythrocyte distribution width ratio 13.6 % 10.0-14.5 Automated blood platelet count (count/volume) 153 10*3/uL 130-400 Automated blood platelet mean volume measurement 9.0 [foz_us] 7.4-10.4 Comprehensive metabolic panel - 10/20/15 12:57 Serum or plasma sodium measurement (moles/volume) 138 mmol/L 135-145 Serum or plasma potassium measurement (moles/volume) 5.6 mmol/L 3.6-5.0 Serum or plasma chloride measurement (moles/volume) 107 mmol/L 98-107 Carbon dioxide 23 mmol/L 21-32 Serum or plasma anion gap determination (moles/volume) 8 mmol/L 5-14 Serum or plasma urea nitrogen measurement (mass/volume) 60 mg/dL 7-18 Serum or plasma creatinine measurement (mass/volume) 4.61 mg/dL 0.60-1.30 Serum or plasma urea nitrogen/creatinine mass ratio 13 NRG Serum or plasma creatinine measurement with calculation of estimated glomerular filtration rate 13 NRG Serum or plasma glucose measurement (mass/volume) 108 mg/dL 70-105 Serum or plasma calcium measurement (mass/volume) 8.5 mg/dL 8.5-10.1 Serum or plasma total bilirubin measurement (mass/volume) 0.3 mg/dL 0.1-1.0 Serum or plasma alkaline phosphatase measurement (enzymatic activity/volume) 50 U/L 40-136 Serum or plasma aspartate aminotransferase measurement (enzymatic activity/ volume) 16 U/L 5-34 Serum or plasma alanine aminotransferase measurement (enzymatic activity/volume ) 16 U/L 0-55 Serum or plasma protein measurement (mass/volume) 6.0 g/dL 6.4-8.2 Serum or plasma albumin measurement (mass/volume) 3.7 g/dL 3.2-4.5 Comprehensive metabolic panel - 11/22/15 14:55 Serum or plasma sodium measurement (moles/volume) 137 mmol/L 135-145 Serum or plasma potassium measurement (moles/volume) 4.9 mmol/L 3.6-5.0 Serum or plasma chloride measurement (moles/volume) 107 mmol/L 98-107 Carbon dioxide 18 mmol/L 21-32 Serum or plasma anion gap determination (moles/volume) 12 mmol/L 5-14 Serum or plasma urea nitrogen measurement (mass/volume) 57 mg/dL 7-18 Serum or plasma creatinine measurement (mass/volume) 4.54 mg/dL 0.60-1.30 Serum or plasma urea nitrogen/creatinine mass ratio 13 NRG Serum or plasma creatinine measurement with calculation of estimated glomerular filtration rate 13 NRG Serum or plasma glucose measurement (mass/volume) 119 mg/dL 70-105 Serum or plasma calcium measurement (mass/volume) 8.5 mg/dL 8.5-10.1 Serum or plasma total bilirubin measurement (mass/volume) 0.2 mg/dL 0.1-1.0 Serum or plasma alkaline phosphatase measurement (enzymatic activity/volume) 41 U/L 40-136 Serum or plasma aspartate aminotransferase measurement (enzymatic activity/ volume) 15 U/L 5-34 Serum or plasma alanine aminotransferase measurement (enzymatic activity/volume ) 16 U/L 0-55 Serum or plasma protein measurement (mass/volume) 6.4 g/dL 6.4-8.2 Serum or plasma albumin measurement (mass/volume) 4.0 g/dL 3.2-4.5 Hemoglobin A1c - 11/22/15 14:55 Hemoglobin A1c 5.1 % 4.5-6.2 THYROID STIMULATING HORMONE - 11/22/15 14:55 THYROID STIMULATING HORMONE 478.20 u[iU]/mL 0.35-4.94 Serum or plasma thyroxine (T4) free measurement (mass/volume) - 11/22/15 14:55 Serum or plasma thyroxine (T4) free measurement (mass/volume) < ng/ dL 0.70-1.48 Complete blood count (CBC) with automated white blood cell (WBC) differential - 12/12/15 16:20 Blood leukocytes automated count (number/volume) 5.2 10*3/uL 4.3-11.0 Blood erythrocytes automated count (number/volume) 2.80 10*6/uL 4.35-5.85 Venous blood hemoglobin measurement (mass/volume) 9.3 g/dL 13.3-17.7 Blood hematocrit (volume fraction) 27 % 40-54 Automated erythrocyte mean corpuscular volume 98 [foz_us] 80-99 Automated erythrocyte mean corpuscular hemoglobin (mass per erythrocyte) 33 pg 25-34 Automated erythrocyte mean corpuscular hemoglobin concentration measurement ( mass/volume) 34 g/dL 32-36 Automated erythrocyte distribution width ratio 13.1 % 10.0-14.5 Automated blood platelet count (count/volume) 158 10*3/uL 130-400 Automated blood platelet mean volume measurement 9.2 [foz_us] 7.4-10.4 Automated blood neutrophils/100 leukocytes 68 % 42-75 Automated blood lymphocytes/100 leukocytes 19 % 12-44 Blood monocytes/100 leukocytes 7 % 0-12 Automated blood eosinophils/100 leukocytes 6 % 0-10 Automated blood basophils/100 leukocytes 0 % 0-10 Blood neutrophils automated count (number/volume) 3.5 10*3 1.8-7.8 Blood lymphocytes automated count (number/volume) 1.0 10*3 1.0-4.0 Blood monocytes automated count (number/volume) 0.4 10*3 0.0-1.0 Automated eosinophil count 0.3 10*3/uL 0.0-0.3 Automated blood basophil count (count/volume) 0.0 10*3/uL 0.0-0.1 Comprehensive metabolic panel - 12/12/15 16:20 Serum or plasma sodium measurement (moles/volume) 137 mmol/L 135-145 Serum or plasma potassium measurement (moles/volume) 5.5 mmol/L 3.6-5.0 Serum or plasma chloride measurement (moles/volume) 102 mmol/L 98-107 Carbon dioxide 26 mmol/L 21-32 Serum or plasma anion gap determination (moles/volume) 9 mmol/L 5-14 Serum or plasma urea nitrogen measurement (mass/volume) 70 mg/dL 7-18 Serum or plasma creatinine measurement (mass/volume) 4.70 mg/dL 0.60-1.30 Serum or plasma urea nitrogen/creatinine mass ratio 15 NRG Serum or plasma creatinine measurement with calculation of estimated glomerular filtration rate 13 NRG Serum or plasma glucose measurement (mass/volume) 109 mg/dL 70-105 Serum or plasma calcium measurement (mass/volume) 9.1 mg/dL 8.5-10.1 Serum or plasma total bilirubin measurement (mass/volume) 0.3 mg/dL 0.1-1.0 Serum or plasma alkaline phosphatase measurement (enzymatic activity/volume) 41 U/L 40-136 Serum or plasma aspartate aminotransferase measurement (enzymatic activity/ volume) 21 U/L 5-34 Serum or plasma alanine aminotransferase measurement (enzymatic activity/volume ) 19 U/L 0-55 Serum or plasma protein measurement (mass/volume) 6.8 g/dL 6.4-8.2 Serum or plasma albumin measurement (mass/volume) 4.1 g/dL 3.2-4.5 Serum or plasma renal function panel (Na, K, Cl, CO2, BUN, Cr, glucose,Ca, phos , alb) - 02/16/16 14:07 Serum or plasma sodium measurement (moles/volume) 136 mmol/L 135-145 Serum or plasma potassium measurement (moles/volume) 5.3 mmol/L 3.6-5.0 Serum or plasma chloride measurement (moles/volume) 109 mmol/L 98-107 Carbon dioxide 17 mmol/L 21-32 Serum or plasma anion gap determination (moles/volume) 10 mmol/L 5-14 Serum or plasma urea nitrogen measurement (mass/volume) 81 mg/dL 7-18 Serum or plasma creatinine measurement (mass/volume) 5.10 mg/dL 0.60-1.30 Serum or plasma urea nitrogen/creatinine mass ratio 16 NRG Serum or plasma creatinine measurement with calculation of estimated glomerular filtration rate 11 NRG Serum or plasma glucose measurement (mass/volume) 170 mg/dL 70-105 Serum or plasma calcium measurement (mass/volume) 8.4 mg/dL 8.5-10.1 Serum or plasma albumin measurement (mass/volume) 4.0 g/dL 3.2-4.5 Serum or plasma phosphate measurement (mass/volume) 5.6 mg/dL 2.3-4.7 Complete urinalysis with reflex to culture - 02/16/16 14:13 Urine color determination YELLOW NRG Urine clarity determination CLEAR NRG Urine pH measurement by test strip 5 5-9 Specific gravity of urine by test strip 1.020 1.016- 1.022 Urine protein assay by test strip, semi-quantitative 4+ NEGATIVE Urine glucose detection by automated test strip 1+ NEGATIVE Erythrocytes detection in urine sediment by light microscopy 2+ NEGATIVE Urine ketones detection by automated test strip NEGATIVE NEGATIVE Urine nitrite detection by test strip NEGATIVE NEGATIVE Urine total bilirubin detection by test strip NEGATIVE NEGATIVE Urine urobilinogen measurement by automated test strip (mass/volume) NORMAL NORMAL Urine leukocyte esterase detection by dipstick NEGATIVE NEGATIVE Automated urine sediment erythrocyte count by microscopy (number/high power field) RARE NRG Automated urine sediment leukocyte count by microscopy (number/high power field ) NONE NRG Bacteria detection in urine sediment by light microscopy NEGATIVE NRG Squamous epithelial cells detection in urine sediment by light microscopy NONE NRG Crystals detection in urine sediment by light microscopy NONE NRG Casts detection in urine sediment by light microscopy PRESENT NRG Mucus detection in urine sediment by light microscopy NEGATIVE NRG Complete urinalysis with reflex to culture NO NRG Hyaline casts detection in urine sediment by light microscopy RARE NRG Urine protein/creatinine mass ratio - 02/16/16 14:13 Urine protein measurement (mass/volume) 181 mg/dL 6-12 Urine creatinine measurement (mass/volume) 84 mg/dL 30- 125 Urine protein/creatinine mass ratio 2.15 NRG Serum or plasma renal function panel (Na, K, Cl, CO2, BUN, Cr, glucose,Ca, phos , alb) - 03/05/16 14:45 Serum or plasma sodium measurement (moles/volume) 137 mmol/L 135-145 Serum or plasma potassium measurement (moles/volume) 4.8 mmol/L 3.6-5.0 Serum or plasma chloride measurement (moles/volume) 107 mmol/L 98-107 Carbon dioxide 20 mmol/L 21-32 Serum or plasma anion gap determination (moles/volume) 10 mmol/L 5-14 Serum or plasma urea nitrogen measurement (mass/volume) 64 mg/dL 7-18 Serum or plasma creatinine measurement (mass/volume) 4.48 mg/dL 0.60-1.30 Serum or plasma urea nitrogen/creatinine mass ratio 14 NRG Serum or plasma creatinine measurement with calculation of estimated glomerular filtration rate 13 NRG Serum or plasma glucose measurement (mass/volume) 183 mg/dL 70-105 Serum or plasma calcium measurement (mass/volume) 8.6 mg/dL 8.5-10.1 Serum or plasma albumin measurement (mass/volume) 3.8 g/dL 3.2-4.5 Serum or plasma phosphate measurement (mass/volume) 4.8 mg/dL 2.3-4.7 Complete blood count (CBC) with automated white blood cell (WBC) differential - 04/12/16 01:01 Blood leukocytes automated count (number/volume) 10.4 10*3/uL 4.3-11.0 Blood erythrocytes automated count (number/volume) 2.92 10*6/uL 4.35-5.85 Venous blood hemoglobin measurement (mass/volume) 9.4 g/dL 13.3-17.7 Blood hematocrit (volume fraction) 28 % 40-54 Automated erythrocyte mean corpuscular volume 95 [foz_us] 80-99 Automated erythrocyte mean corpuscular hemoglobin (mass per erythrocyte) 32 pg 25-34 Automated erythrocyte mean corpuscular hemoglobin concentration measurement ( mass/volume) 34 g/dL 32-36 Automated erythrocyte distribution width ratio 12.0 % 10.0-14.5 Automated blood platelet count (count/volume) 230 10*3/uL 130-400 Automated blood platelet mean volume measurement 9.0 [[facility]] 7.4-10.4 Automated blood neutrophils/100 leukocytes 82 % 42-75 Automated blood lymphocytes/100 leukocytes 9 % 12-44 Blood monocytes/100 leukocytes 7 % 0-12 Automated blood eosinophils/100 leukocytes 2 % 0-10 Automated blood basophils/100 leukocytes 0 % 0-10 Blood neutrophils automated count (number/volume) 8.4 10*3 1.8-7.8 Blood lymphocytes automated count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
[2017-11-04] MEDS ORDERED: PIPERACILLIN SODIUM/TAZOBACTAM 4.5 GM in NS (IVPB) 100 ML IV ONE (21:15)
[2017-11-04] MEDS ORDERED: hydrALAZINE (APESOLINE) 20 MG/ML VIAL ONE (21:31)
[2017-11-04] MEDS ORDERED: RT-IPRATROPIUM (ATROVENT) 0.5MG/2.5ML AMP IH ONE ×2 (22:26→22:30)
[2017-11-04 23:40] VITALS: BP 186/89
== END 2017-11-04 23:55 | disposition short-term general hospital (02) ==
LOC: EDUNIT# 20:06 → ER 20:07
DX: J18.1 Lobar pneumonia, unspecified organism (principal); E11.22 Type 2 diabetes mellitus with diabetic chronic kidney disease; I12.0 Hypertensive chronic kidney disease with stage 5 chronic kidney disease or end stage renal disease; N18.6 End stage renal disease; R06.03 Acute respiratory distress; I25.10 Atherosclerotic heart disease of native coronary artery without angina pectoris; I48.91 Unspecified atrial fibrillation; I25.2 Old myocardial infarction; E78.00 Pure hypercholesterolemia, unspecified; K21.9 Gastro-esophageal reflux disease without esophagitis; M10.9 Gout, unspecified; E03.9 Hypothyroidism, unspecified; F41.9 Anxiety disorder, unspecified; Z87.442 Personal history of urinary calculi; Z82.49 Family history of ischemic heart disease and other diseases of the circulatory system; Z80.3 Family history of malignant neoplasm of breast; Z80.52 Family history of malignant neoplasm of bladder; Z79.51 Long term (current) use of inhaled steroids; Z85.72 Personal history of non-Hodgkin lymphomas; Z92.21 Personal history of antineoplastic chemotherapy; Z79.82 Long term (current) use of aspirin; Z99.2 Dependence on renal dialysis; Z99.81 Dependence on supplemental oxygen; Z95.5 Presence of coronary angioplasty implant and graft; Z90.89 Acquired absence of other organs; Z87.01 Personal history of pneumonia (recurrent)
CPT/HCPCS: 36415; 71045; 80053; 83605; 85007; 85027; 85610; 85730; 87040; 93005; 94640; 96365; 96375

== ENCOUNTER 2017-11-13 14:33 | Outpatient (RCR) | payer MEDICARE, OTHER ==
[2017-08-21 14:33] LABS: BASOPHILS % (AUTO) 1 % (0-10); EOSINOPHILS # (AUTO) 0.2 10^3/uL (0.0-0.3); EOSINOPHILS % (AUTO) 3 % (0-10); HEMATOCRIT 31 % (40-54); HEMOGLOBIN 10.1 G/DL (13.3-17.7); LYMPHOCYTES % (AUTO) 17 % (12-44); MEAN CORPUSCULAR HEMOGLOBIN 34 PG (25-34); MEAN CORPUSCULAR HGB CONC 33 G/DL (32-36); MEAN CORPUSCULAR VOLUME 104 FL (80-99); MEAN PLATELET VOLUME 8.8 FL (7.4-10.4); MONOCYTES # (AUTO) 0.4 X 10^3 (0.0-1.0); MONOCYTES % (AUTO) 7 % (0-12); NEUTROPHILS # (AUTO) 3.9 X 10^3 (1.8-7.8); NEUTROPHILS % (AUTO) 72 % (42-75); PLATELET COUNT 194 10^3/uL (130-400); RED BLOOD COUNT 2.95 10^6/uL (4.35-5.85); RED CELL DISTRIBUTION WIDTH 13.7 % (10.0-14.5); WHITE BLOOD COUNT 5.5 10^3/uL (4.3-11.0)
[2017-08-21 14:55] LABS: ALBUMIN 3.7 GM/DL (3.2-4.5); BILIRUBIN,TOTAL 0.5 MG/DL (0.1-1.0); CREATININE SERUM 4.64 MG/DL (0.60-1.30); TOTAL PROTEIN 5.9 GM/DL (6.4-8.2)
[2017-08-21 15:20] LABS: CALCIUM 8.8 MG/DL (8.5-10.1)
[~2017-11-13 14:33] MED LIST changes: +DARBEPOETIN 10 MCG/0.4 ML ARANESP IJ SCH; +LEVO300T5; +LEVO50TA6
== END 2017-11-19 | disposition home or self-care (01) ==
LOC: ONC 14:33
PROVIDERS: ATTEND Internal Medicine Hematology & Oncology
DX: C85.80 Other specified types of non-Hodgkin lymphoma, unspecified site (principal); D63.1 Anemia in chronic kidney disease; N18.4 Chronic kidney disease, stage 4 (severe); I12.9 Hypertensive chronic kidney disease with stage 1 through stage 4 chronic kidney disease, or unspecified chronic kidney disease; E11.22 Type 2 diabetes mellitus with diabetic chronic kidney disease; E03.9 Hypothyroidism, unspecified; I25.10 Atherosclerotic heart disease of native coronary artery without angina pectoris; E78.5 Hyperlipidemia, unspecified; G47.30 Sleep apnea, unspecified; G60.9 Hereditary and idiopathic neuropathy, unspecified; Z98.61 Coronary angioplasty status; Z79.4 Long term (current) use of insulin; Z79.899 Other long term (current) drug therapy
CPT/HCPCS: 36591; 80053; 83615; 84443; 85025; 96523

== ENCOUNTER → 2018-01-29 | Outpatient (CLI) | payer MEDICARE ==
[~2018-01-29] MED LIST changes: -DARBEPOETIN 10 MCG/0.4 ML ARANESP IJ SCH
--- NOTE | 2018-01-29 10:05 | Diagnostic Imaging Report ---
INDICATION: Cough and congestion. COMPARISON: Comparison made with prior examination 11/04/2017. FINDINGS: The heart size is normal. Mediastinum is unremarkable. There is no pleural effusion, pneumothorax or pneumonia. There is a right internal jugular central venous catheter which has its tip in the right atrium. IMPRESSION: No acute cardiopulmonary abnormality. Dictated by: Dictated on workstation # [id number]
== END ==
LOC: RAD 09:43
PROVIDERS: ATTEND Nurse Practitioner Family
DX: R05 Cough (principal); R09.89 Other specified symptoms and signs involving the circulatory and respiratory systems
CPT/HCPCS: 71046

== ENCOUNTER 2018-02-06 12:42 | Emergency (ER) | payer MEDICARE ==
[~2018-02-06] VITALS: Ht 177.8 cm; Wt 83.9 kg
--- OUTSIDE RECORDS SUMMARY | 2018-02-06 12:47 | XMS REPORT | Clinical Summary ---
Author Author [facility] Organization [facility] Address Unknown Phone Unavailable Care Team Providers Care Glaze Handler Name Role Phone Catherine Zelaya MD PCP Allergies No Known Allergies Current Medications Prescription Sig. Disp. Refills Start End Date Status Date HYDROcodone-acetaminophen Take 1 tablet by mouth Active (NORCO) 10-325 mg per every 6 (six) hours as tablet needed for pain. Takes about 3 times a week promethazine (PHENERGAN) Take 25 mg by mouth Active 25 MG tablet daily. ALPRAZolam (XANAX) 0.5 MG Take 0.5 mg by mouth Active tablet every 12 (twelve) hours as needed. levothyroxine (SYNTHROID, Take 300 mcg by mouth Active LEVOTHROID) 300 MCG daily. tablet levothyroxine (SYNTHROID, Take 50 mcg by mouth Active LEVOTHROID) 50 MCG tablet daily. amLODIPine (NORVASC) 5 MG Take 5 mg by mouth daily. Active tablet carvedilol (COREG) 3.125 Take 3.125 mg by mouth 2 Active MG tablet (two) times a day with meals. losartan (COZAAR) 25 MG Take 25 mg by mouth Active tablet daily. calcium carbonate (TUMS) Chew 1 tablet daily. Active 200 mg calcium (500 mg) chewable tablet Active Problems Not on file Family History Medical History Relation Name Comments No Known Problems Brother Cancer Father Heart disease Father Hypertension Father No Known Problems Maternal Grandfather No Known Problems Maternal Grandmother Cancer Mother Diabetes Mother Hypertension Mother Stroke Mother No Known Problems Paternal Grandfather No Known Problems Paternal Grandmother Heart disease Sister No Known Problems Son No Known Problems Son Relation Name Status Comments Brother Alive Brother Father Maternal Grandfather unknown health history Maternal Grandmother unknown health history Mother Paternal Grandfather unknown health history Paternal Grandmother unknown health history Sister Alive Son Alive Son Alive Social History Tobacco Use Types Packs/Day Years Used Date Never Smoker Smokeless Tobacco: Never Used Alcohol Use Drinks/Week oz/Week Comments No Sex Assigned at Date Recorded Not on file Last Filed Vital Signs Vital Sign Reading Time Taken Blood Pressure 145/87 10/16/2017 11:36 AM CDT Pulse 82 10/16/2017 11:36 AM CDT Temperature 37.1 C (98.8 F) 10/16/2017 11:36 AM CDT Respiratory Rate 18 10/16/2017 11:36 AM CDT Oxygen Saturation 95% 10/16/2017 11:36 AM CDT Inhaled Oxygen - - Concentration Weight 77.1 kg (170 lb) 10/16/2017 11:36 AM CDT Height 172.7 cm (5' 8") 10/16/2017 11:36 AM CDT Body Mass Index 25.85 10/16/2017 11:36 AM CDT Plan of Treatment Health Maintenance Due Date Last Done Comments Diabetes Mellitus 1950 Ophthalmology Exam Td # 1949 Diabetes Mellitus Foot 1959 Exam Colorectal Screening via 1999 Colonoscopy Zoster Vaccine# (1 of 2) 1999 Depression Screening 2014 PHQ-9 # Fall Risk Assessment # 2014 Pneumococcal Immunization 2014 65+ (1 of 2 - PCV13) Influenza Vaccine (#1) 2017 Diabetes Mellitus 04/16/2018 10/16/2017 Hemoglobin A1C Lipid Screening 10/16/2018 10/16/2017 Hepatitis C Screen Completed 10/16/2017 Results Not on filefrom Last 3 Months
--- OUTSIDE RECORDS SUMMARY | 2018-02-06 12:47 | XMS REPORT | Clinical Summary ---
Author Author [facility] Organization [facility] Address Unknown Phone Unavailable Care Team Providers Care Front Worker Name Role Phone Eryn Jewell RN Unavailable Unavailable Catherine Zelaya MD PCP Carlos Colvin MD Unavailable Unavailable Source Comments Some departments are not documenting in the electronic medical record. If you do not see the information that you expected, contact Release of Information in the Health Information Management department at [phone] for further assistance in locating additional records.[facility] Allergies Comments Active Allergy Reactions Severity Noted Date Blood pressure drops rapidly Nitroglycerin SEE COMMENTS 04/22/2013 Medications End Date Status Medication Sig Dispensed Refills Start Date Active ranolazine ER (RANEXA) Take by 0 500 mg tablet mouth twice daily. Active glipiZIDE (GLUCOTROL) 10 Take 10 mg by 0 mg tablet mouth twice daily. Active colesevelam(+) (WELCHOL) Take 1,875 mg 0 625 mg tablet by mouth three times daily. Active insulin detemir(+) Inject 100 0 (LEVEMIR) 100 unit/mL Units into soln area(s) as directed. Active insulin glulisine(+) Inject 5 0 (APIDRA) 100 unit/mL Units into injection vial area(s) as directed three times daily with meals. Active levothyroxine (SYNTHROID) Take 300 mcg 0 300 mcg tablet by mouth daily. Active levothyroxine (SYNTHROID) Take 25 mcg 0 25 mcg tablet by mouth daily. Active clopiDOGrel (PLAVIX) 75 Take 75 mg by 0 mg tablet mouth daily. Active DULoxetine DR (CYMBALTA) Take 60 mg by 0 60 mg capsule mouth daily. Active aspirin EC 81 mg tablet Take 81 mg by 0 mouth daily. Active atorvastatin (LIPITOR) 80 Take 80 mg by 0 mg tablet mouth daily. Active fish oil /omega-3 fatty Take 1 Cap by 0 acids (SEA-OMEGA) mouth daily. 340/1000 mg capsule Active Problems No known active problems Family History Medical History Relation Name Comments Heart Disease Father Heart Disease Mother Relation Name Status Comments Father Mother Social History Date Tobacco Use Types Packs/Day Years Used Never Smoker Smokeless Tobacco: Never Used Alcohol Use Drinks/Week oz/Week Comments No Sex Assigned at Date Recorded Not on file Industry Job Start Date Occupation Not on file Not on file Not on file Travel End Travel History Travel Start No recent travel history available. Last Filed Vital Signs Time Taken Vital Sign Reading 04/22/2013 8:35 AM [employer] Blood Pressure 161/94 04/22/2013 8:35 AM [employer] Pulse 95 04/22/2013 8:35 AM [employer] Temperature 36.9 C (98.4 F) - Respiratory Rate - 04/22/2013 8:35 AM [employer] Oxygen Saturation 93% - Inhaled Oxygen - Concentration 04/22/2013 8:35 AM [employer] Weight 83.3 kg (183 lb 9.6 oz) 04/22/2013 8:35 AM [employer] Height 172.1 cm (5' 7.75") 04/22/2013 8:35 AM [employer] Body Mass Index 28.12 Plan of Treatment Health Maintenance Due Date Last Done Comments HEPATITIS C SCREENING 1949 PHYSICAL (COMPREHENSIVE) 01/06/1956 EXAM DTAP/TDAP VACCINES (1 - 1967 Tdap) COLORECTAL CANCER 1999 SCREENING [employer]ING[employer] REC[employer]BINANT 1999 VACCINE (1 of 2) PNEUMONIA (PCV13/PPSV23) 2014 VACCINES (1 of 2 - PCV13) INFLUENZA VACCINE 09/17/2017 Results Not on filefrom Last 3 Months Insurance Payer Benefit Subscriber ID Type Phone Address Plan / Group BCBS ANJANA BCBS ANJANA xxxxxxxxxxxx PPO [facility] Advance Directives Patient has advance care planning documents on file. For more information, please contact: [facility] [address] [place] [address] [address] [place] [address]
--- OUTSIDE RECORDS SUMMARY | 2018-02-06 12:59 | XMS REPORT | CCD ---
Author Author Catherine Zelaya Organization Catherine Zelaya MD, [facility] Address [address] [place] [address] Phone Care Team Providers Care Civil Design Technician Name Role Phone Catherine Zelaya PP Unavailable CCM Unavailable Summary Purpose Interface Exchange Insurance Providers Payer name Policy type / Coverage type Covered constitution party ID Effective Begin Date Effective End Date WPS Medicare Part B [id number] 2014 Unknown [facility] [id number] 2014 Unknown Family history Son Diagnosis Age [...] Unknown House 10/24/[address]: 133410419 Nonsmoker 10/24/[address]: 054592778 Never drinks alcohol 10/24/2010 Has the patient ever used illegal drugs? Unknown Has never used illegal drugs 10/24/2010 Allergies, Adverse Reactions, Alerts Substance Reaction Codes Entered Date Inactivated Date Status * NO KNOWN DRUG ALLERGIES Unknown 10/24/2010 No Inactive Date Active * NO KNOWN FOOD ALLERGIES Unknown 10/24/2010 No Inactive Date Active Past Medical History Illness Codes Condition Status Onset Date Resolved Date Cough ICD-9: 786.2 ICD-10: R05 Active 04/23/2016 Unknown Pneumonia due to other specified bacteria ICD-9: 482.81 ICD-10: J15.8 Active 01/29/2018 Unknown Essential (primary) hypertension ICD-9: 401.9 ICD-10: I10 Active 03/07/2016 Unknown Encounter for immunization ICD-9: V04.81 ICD-10: Z23 Active 11/11/2013 Unknown Acute bronchitis, unspecified ICD-9: 466.0 ICD-10: J20.9 Active 11/04/2017 Unknown Chronic kidney disease, stage 5 ICD-9: 585.5 ICD-10: N18.5 Active 09/24/2015 Unknown Hypothyroidism, unspecified ICD-9: 244.9 ICD-10: E03.9 Active 03/07/2016 Unknown Encounter for general adult medical examination with abnormal findings ICD-9: V70.0 ICD-10: Z00.01 Active 07/25/2017 Unknown Type 2 diabetes mellitus with hyperglycemia ICD-9: 250.02 ICD-10: E11.65 Active 06/25/2017 Unknown Pain in right knee ICD -9: 719.46 ICD-10: M25.561 Active 06/06/2017 Unknown Pain in right shoulder ICD-9: 719.41 ICD-10: M25.511 Active 06/06/2017 Unknown 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-9: 250.02 ICD-10: E11.21 Active 03/07/2016 Unknown Gastro-esophageal reflux disease without esophagitis ICD-9: 530.81 ICD-10: K21.9 Active 05/20/2016 Unknown Low back pain ICD-9: 724.2 ICD-10: M54.5 Active 10/11/2016 Unknown Slow transit constipation ICD-9: 564.01 ICD-10: K59.01 Active 09/24/2015 Unknown Occlusion and stenosis of bilateral carotid arteries ICD-9: 433.10 ICD-10: I65.23 Active 05/07/2016 Unknown Vomiting without nausea ICD-9: 787.03 ICD-10: [...] Neck pain ICD-9: 723.1 Active 01/18/2014 Unknown Abdominal pain ICD-9: 789.00 Active 08/19/2013 [...] ICD-9: 780.2 Active 09/17/2012 Unknown [facility] ICD-9: E888.9 Active 06/15/2012 Unknown Orthostatic hypotension [...] Problems Condition Codes Effective Dates Condition Status Cough ICD-9: 786.2 ICD-10: R05 04/23/2016 Active Pneumonia due to other specified bacteria ICD-9: 482.81 ICD-10: J15.8 01/29/2018 Active Essential (primary) hypertension ICD-9: 401.9 ICD-10: I10 03/07/2016 Active Encounter for immunization ICD-9: V04.81 ICD-10: Z23 11/11/2013 Active Acute bronchitis, unspecified ICD-9: 466.0 ICD-10: J20.9 11/04/2017 Active Chronic kidney disease, stage 5 ICD-9: 585.5 ICD-10: N18.5 09/24/2015 Active Hypothyroidism, unspecified ICD-9: 244.9 ICD-10: E03.9 03/07/2016 Active Encounter for general adult medical examination with abnormal findings ICD-9: V70.0 ICD-10: Z00.01 07/25/2017 Active Type 2 diabetes mellitus with hyperglycemia ICD-9: 250.02 ICD-10: E11.65 06/25/2017 Active Pain in right knee ICD -9: 719.46 ICD-10: M25.561 06/06/2017 Active Pain in right shoulder ICD-9: 719.41 ICD-10: M25.511 06/06/2017 Active 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-9: 250.02 ICD-10: E11.21 03/07/2016 Active Gastro-esophageal reflux disease without esophagitis ICD-9: 530.81 ICD-10: K21.9 05/20/2016 Active Low back pain ICD-9: 724.2 ICD-10: M54.5 10/11/2016 Active Slow transit constipation ICD-9: 564.01 ICD-10: K59.01 09/24/2015 Active Occlusion and stenosis of bilateral carotid arteries ICD-9: 433.10 ICD-10: I65.23 05/07/2016 Active Vomiting without nausea ICD-9: 787.03 ICD-10: [...] Active Neck pain ICD-9: 723.1 01/18/2014 Active Abdominal pain ICD-9: 789.00 08/19/2013 Active [...] Syncope ICD-9: 780.2 09/17/2012 Active [facility] ICD-9: E888.9 06/15/2012 Active Orthostatic hypotension ICD-9: [...] Start Date Stop Date Status Fill Instructions omeprazole 40 mg capsule,delayed release RxNorm: 808093 TAKE 1 CAPSULE BY MOUTH TWICE DAILY 02/02/2018 No Stop Date Active Tessalon 200 mg capsule RxNorm: 138306 1 Capsule(s) PO TID PRN TAKE 1 CAPSULE BY MOUTH THREE TIMES DAILY NEEDED 01/29/2018 No Stop Date Active Augmentin 500 mg-125 mg tablet RxNorm: 933606 1 Tablet(s) PO BID 01/29/2018 02/04/2018 Active hydrocodone 10 mg-acetaminophen 325 mg tablet RxNorm: 562689 1 Tablet(s) PO Q6 PRN 01/29/2018 No Stop Date Active Kenalog 40 mg/mL suspension for injection RxNorm: 4838256 1 Milliliter(s) Inj 01/29/2018 01/29/2018 Inactive promethazine 25 mg tablet RxNorm: 074654 TAKE 1 TABLET BY MOUTH EVERY 6 HOURS NEEDED 01/19/2018 No Stop Date Active Tessalon 200 mg capsule RxNorm: 312495 TAKE 1 CAPSULE BY MOUTH THREE TIMES DAILY NEEDED 01/19/2018 01/28/2018 Inactive clonidine HCl 0.1 mg tablet RxNorm: 815371 1 Tablet(s) PO PRN systolic blood pressure at or above 170 do not take more than twice a day No Stop Date Active please call pt when rx ready for pickle cutter omeprazole 40 mg capsule,delayed release RxNorm: 620973 TAKE ONE CAPSULE BY MOUTH TWICE DAILY 12/08/2017 02/01/2018 Inactive hydrocodone 10 mg-acetaminophen 325 mg tablet RxNorm: 292696 1 Tablet(s) PO Q6 PRN 12/08/2017 01/28/2018 Inactive promethazine 25 mg tablet RxNorm: 934028 TAKE 1 TABLET BY MOUTH EVERY 6 HOURS NEEDED 11/17/2017 01/18/2018 Inactive hydrocodone 10 mg-acetaminophen 325 mg tablet RxNorm: 320537 1 Tablet(s) PO Q6 PRN 11/12/2017 12/07/2017 Inactive Tessalon 200 mg capsule RxNorm: 321555 1 Capsule(s) PO TID as needed 11/04/2017 01/18/2018 Inactive Zithromax Z-Bhavesh 250 mg tablet RxNorm: 363063 1 Tablet(s) PO UD 11/04/2017 11/08/2017 Inactive omeprazole 40 mg capsule,delayed release RxNorm: 468617 TAKE ONE CAPSULE BY MOUTH TWICE DAILY 11/03/2017 12/07/2017 Inactive Tessalon 200 mg capsule RxNorm: 522664 1 Capsule(s) PO TID as needed 10/30/2017 11/03/2017 Inactive Tessalon 200 mg capsule RxNorm: 207626 1 Capsule(s) PO TID 10/29/2017 Inactive Xanax 0.5 mg tablet RxNorm: 129533 1 Tablet(s) PO Q6 as needed 10/29/2017 12/27/2017 Inactive hydrocodone 10 mg-acetaminophen 325 mg tablet RxNorm: 299867 1 Tablet(s) PO Q6 PRN 10/15/2017 11/11/2017 Inactive Colace 100 mg capsule RxNorm: 1346465 1 Capsule(s) PO QAM 201711/07/2017 Inactive Xanax 0.5 mg tablet RxNorm: 554441 1 Tablet(s) PO Q6 as needed 10/09/2017 10/28/2017 Inactive hydrocodone 10 mg-acetaminophen 325 mg tablet RxNorm: 777575 1 Tablet(s) PO Q6 PRN 09/10/2017 10/14/2017 Inactive hydrocodone 10 mg-acetaminophen 325 mg tablet RxNorm: 785152 1 Tablet(s) PO Q6 PRN 08/07/2017 09/09/2017 Inactive promethazine 25 mg tablet RxNorm: 414284 Tablet(s) 1 Tablet(s) PO Q6 PRN 1 Tablet( s) PO Q6 PRN 07/11/2017 11/17/2017 Inactive 30 tablets per 30 days hydrocodone 10 mg-acetaminophen 325 mg tablet RxNorm: 117226 1 Tablet(s) PO Q6 PRN 07/04/2017 08/06/2017 Inactive promethazine 25 mg tablet RxNorm: 558713 1 Tablet(s) PO Q6 PRN 1 Tablet(s) PO Q6 PRN 06/16/2017 07/09/2017 Inactive hydrocodone 10 mg-acetaminophen 325 mg tablet RxNorm: 601722 1 Tablet(s) PO Q6 PRN 06/06/2017 07/03/2017 Inactive hydrocodone 7.5 mg-acetaminophen 325 mg tablet RxNorm: 261231 1-2 Tablet(s) PO Q6 as needed 06/06/2017 06/06/2017 Inactive hydrocodone 7.5 mg-acetaminophen 325 mg tablet RxNorm: 415130 1-2 Tablet(s) PO Q6 as needed 05/14/2017 05/28/2017 Inactive Synthroid 300 mcg tablet RxNorm: 575480 1 Tablet(s) PO daily Take with 50mcg tablet to equal 350mcg 05/08/20172018 Active Synthroid 50 mcg tablet RxNorm: 560324 1 Tablet(s) PO daily take with 300mcg tablet 05/08/2017 05/02/2018 Active Take with 300mcg tablet Zofran 4 mg tablet RxNorm: 627353 Tablet(s) TAKE ONE TABLET BY MOUTH THREE TIMES DAILY NEEDED 05/01/2017 No Stop Date Active Xanax 0.5 mg tablet RxNorm: 030221 1 Tablet(s) PO BID PRN as needed 05/01/2017 06/29/2017 Inactive promethazine 25 mg tablet RxNorm: 877803 1 Tablet(s) PO Q6 PRN 1 Tablet(s) PO Q6 PRN 05/01/2017 05/30/2017 Inactive omeprazole 40 mg capsule,delayed release RxNorm: 082733 TAKE ONE CAPSULE BY MOUTH ONCE DAILY 04/21/2017 No Stop Date Active hydrocodone 7.5 mg-acetaminophen 325 mg tablet RxNorm: 064412 1-2 Tablet(s) PO Q6 as needed 04/18/2017 05/02/2017 Inactive promethazine 25 mg tablet RxNorm: 189678 1 Tablet(s) PO Q6 PRN 1 Tablet(s) PO Q6 PRN 04/08/2017 04/30/2017 Inactive hydrocodone 7.5 mg-acetaminophen 325 mg tablet RxNorm: 537146 1-2 Tablet(s) PO Q6 as needed 03/19/2017 04/02/2017 Inactive Xanax 0.5 mg tablet RxNorm: 785584 1 Tablet(s) PO Q6 PRN as needed 03/19/2017 04/02/2017 Inactive Xanax 0.5 mg tablet RxNorm: 772858 1 Tablet(s) PO Q6 PRN as needed 02/28/2017 03/14/2017 Inactive promethazine 25 mg tablet RxNorm: 123652 1 Tablet(s) PO Q6 PRN 1 Tablet(s) PO Q6 PRN 02/18/2017 03/19/2017 Inactive Xanax 0.5 mg tablet RxNorm: 457176 1 Tablet(s) PO Q6 PRN as needed 02/18/2017 02/27/2017 Inactive Zofran 4 mg tablet RxNorm: 332380 TAKE ONE TABLET BY MOUTH THREE TIMES DAILY NEEDED 02/18/2017 04/30/2017 Inactive Synthroid 300 mcg tablet RxNorm: 587660 1 Tablet(s) PO daily take with 50mcg tablet 02/11/2017 08/09/2017 Inactive Take with 50mcg tablet Synthroid 50 mcg tablet RxNorm: 228369 1 Tablet(s) PO daily take with 300mcg tablet 02/11/2017 05/07/2017 Inactive Take with 300mcg tablet hydrocodone 7.5 mg-acetaminophen 325 mg tablet RxNorm: 868355 1-2 Tablet(s) PO Q6 as needed 02/11/2017 02/25/2017 Inactive promethazine 25 mg tablet RxNorm: 561963 1 Tablet(s) PO Q6 PRN 1 Tablet(s) PO Q6 PRN 01/14/2017 01/23/2017 Inactive promethazine 25 mg tablet RxNorm: 698730 1 Tablet(s) PO Q6 PRN 12/17/2016 12/21/2016 Inactive promethazine 25 mg tablet RxNorm: 382774 1 Tablet(s) PO Q6 PRN 12/02/2016 12/06/2016 Inactive promethazine 25 mg tablet RxNorm: 925215 1 Tablet(s) PO Q6 PRN 11/15/2016 11/19/2016 Inactive losartan 25 mg tablet RxNorm: 511234 1 Tablet(s) PO BID 201610/08/2017 Inactive Xanax 0.5 mg tablet RxNorm: 104657 1 Tablet(s) PO Q6 PRN as needed 11/11/2016 12/24/2016 Inactive omeprazole 40 mg capsule,delayed release RxNorm: 757085 1 Capsule(s) PO daily 10/15/2016 04/12/2017 Inactive Synthroid 300 mcg tablet RxNorm: 537627 1 Tablet(s) PO daily 05/07/2017 Inactive omeprazole 40 mg capsule,delayed release RxNorm: 593268 1 Capsule(s) PO BID 10/11/2016 10/14/2016 Inactive hydrocodone 7.5 mg-acetaminophen 325 mg tablet RxNorm: 134570 1-2 Tablet(s) PO Q6 as needed 10/11/2016 10/25/2016 Inactive promethazine 25 mg tablet RxNorm: 048119 1 Tablet(s) PO Q6 PRN 10/11/2016 11/14/2016 Inactive Xanax 0.5 mg tablet RxNorm: 362747 1 Tablet(s) PO Q6 PRN as needed 10/11/2016 11/10/2016 Inactive hydrocodone 7.5 mg-acetaminophen 325 mg tablet RxNorm: 473089 1-2 Tablet(s) PO Q6 as needed 09/10/2016 09/24/2016 Inactive Xanax 0.5 mg tablet RxNorm: 076126 1 Tablet(s) PO Q6 PRN as needed 08/22/2016 10/05/2016 Inactive carvedilol 3.125 mg tablet RxNorm: 078086 1 Tablet(s) PO BID 10/08/2017 Inactive carvedilol 3.125 mg tablet RxNorm: 079425 1/2 Tablet(s) PO BID 07/01/2016 07/10/2016 Inactive hydrocodone 7.5 mg-acetaminophen 325 mg tablet RxNorm: 220419 1-2 Tablet(s) PO Q6 as needed 06/19/2016 07/03/2016 Inactive PhosLo 667 mg capsule RxNorm: 098178 1 Capsule(s) PO TID with meals 06/03/2016 07/24/2017 Inactive Synthroid 300 mcg tablet RxNorm: 989399 1 Tablet(s) PO daily 10/10/2016 Inactive lactulose 10 gram/15 mL oral solution RxNorm: 442705 15 Milliliter(s) PO TID 06/03/2016 07/24/2017 Inactive Linzess 145 mcg capsule RxNorm: 7475994 1 Capsule(s) PO daily 05/30/2016 05/29/2016 Inactive Linzess 145 mcg capsule RxNorm: 0645342 1 Capsule(s) PO daily 05/30/2016 07/24/2017 Inactive Xanax 0.5 mg tablet RxNorm: 296632 1 Tablet(s) PO Q6 PRN as needed 05/29/2016 07/12/2016 Inactive Protonix 40 mg tablet,delayed release RxNorm: 798798 Tablet(s) TAKE 1 TABLET BY MOUTH EVERY DAY 05/17/2016 07/24/2017 Inactive Brand name only! Zithromax Z-Bhavesh 250 mg tablet RxNorm: 074504 1 Tablet(s) PO UD 04/23/2016 04/27/2016 Inactive zpack promethazine 25 mg tablet RxNorm: 101981 1 Tablet(s) PO Q6 PRN 04/23/2016 10/10/2016 Inactive Reglan 5 mg tablet RxNorm: 105157 TAKE ONE-HALF TABLET BY MOUTH THREE TIMES DAILY 03/20/2016 07/24/2017 Inactive Xanax 0.5 mg tablet RxNorm: 289869 1 Tablet(s) PO Q6 PRN as needed 03/08/2016 04/21/2016 Inactive Cozaar 25 mg tablet RxNorm: 230106 1 Tablet(s) PO daily 201606/02/2016 Inactive Cozaar 25 mg tablet RxNorm: 419041 1 Tablet(s) PO daily 201602/25/2016 Inactive hydrocodone 7.5 mg-acetaminophen 325 mg tablet RxNorm: 802867 1-2 Tablet(s) PO Q6 as needed 02/20/2016 06/18/2016 Inactive [SAVINGS FOR NON-COVERED DRUGS -- BIN: 348432, PCN: ASPROD1, Group: XXXXX, ID# [id number], Questions: . THIS IS NOT INSURANCE.] Xanax 0.5 mg tablet RxNorm: 278509 1 Tablet(s) PO Q6 PRN as needed 02/07/2016 03/07/2016 Inactive BD Insulin Pen Needle UF Short 31 gauge x 07/02" RxNorm: Miscellaneous 02/02/2016 05/01/2016 Inactive Zofran 4 mg tablet RxNorm: 830566 1 Tablet(s) PO TID PRN 02/17/2017 Inactive Synthroid 300 mcg tablet RxNorm: 187805 1 Tablet(s) PO daily 06/02/2016 Inactive Zofran 4 mg tablet RxNorm: 748632 1 Tablet(s) PO TID PRN 01/07/2016 Inactive polymyxin B sulfate 10,000 unit-trimethoprim 1 mg/mL eye drops RxNorm: 132620 2 Drop(s) OPH TID 11/24/2015 11/23/2015 Inactive polymyxin B sulfate 10,000 unit-trimethoprim 1 mg/mL eye drops RxNorm: 983384 2 Drop(s) OPH TID 11/24/2015 11/30/2015 Inactive Levemir 100 unit/mL subcutaneous solution RxNorm: 723777 15 Unit(s) SQ BID 11/13/2015 11/12/2015 Inactive disp needles as well Levemir 100 unit/mL subcutaneous solution RxNorm: 287659 15 Unit(s) SQ BID 11/13/2015 11/13/2015 Inactive disp needles as well Levemir FlexTouch 100 unit/mL (3 mL) subcutaneous insulin pen RxNorm: 963735 15 Unit(s) SQ BID 11/13/2015 11/23/2015 Inactive hydrocodone 7.5 mg-acetaminophen 325 mg tablet RxNorm: 373073 1-2 Tablet(s) PO Q6 as needed 11/03/2015 02/19/2016 Inactive [SAVINGS FOR NON-COVERED DRUGS -- BIN: 804722, PCN: ASPROD1, Group: XXXXX, ID# [id number], Questions: . THIS IS NOT INSURANCE.] carvedilol 3.125 mg tablet RxNorm: 355437 1/2 Tablet(s) PO BID 10/20/2015 06/02/2016 Inactive Xanax 0.5 mg tablet RxNorm: 256371 1 Tablet(s) PO Q6 PRN as needed 09/27/2015 11/08/2015 Inactive Zofran 4 mg tablet RxNorm: 124493 1 Tablet(s) PO TID PRN 11/201512/07/2015 Inactive hydrocodone 7.5 mg-acetaminophen 325 mg tablet RxNorm: 401766 1-2 Tablet(s) PO Q6 as needed 09/21/2015 11/02/2015 Inactive [SAVINGS FOR NON-COVERED DRUGS -- BIN: 217352, PCN: ASPROD1, Group: XXXXX, ID# [id number], Questions: . THIS IS NOT INSURANCE.] Zofran 4 mg tablet RxNorm: 733775 Tablet(s) 1 TABLET(S) PO Q6 PRN 09/21/2015 09/26/2015 Inactive Phenergan 25 mg/mL injection solution RxNorm: 547948 1 Milliliter(s) Inj 09/19/2015 09/19/2015 Inactive Reglan 5 mg tablet RxNorm: 305023 1/2 Tablet(s) PO TID 201512/17/2015 Inactive Zofran 4 mg tablet RxNorm: 072750 Tablet(s) 1 TABLET(S) PO Q6 PRN 09/07/2015 09/20/2015 Inactive Levaquin 250 mg tablet RxNorm: 026487 1 Tablet(s) PO Q72H 08/1708/26/2015 Inactive Kenalog 40 mg/mL suspension for injection RxNorm: 2705680 Milliliter(s) Inj 08/18/2015 08/18/2015 Inactive Synthroid 300 mcg tablet RxNorm: 598974 1 Tablet(s) PO daily 12/17/2015 Inactive Colace 100 mg capsule RxNorm: 1518230 1 Capsule(s) PO QAM as needed 08/14/2015 07/24/2017 Inactive hydrocodone 7.5 mg-acetaminophen 325 mg tablet RxNorm: 483421 1-2 Tablet(s) PO Q6 as needed 08/08/2015 09/20/2015 Inactive [SAVINGS FOR NON-COVERED DRUGS -- BIN: 225422, PCN: ASPROD1, Group: XXXXX, ID# [id number], Questions: . THIS IS NOT INSURANCE.] Xanax 0.5 mg tablet RxNorm: 509675 1 Tablet(s) PO Q6 PRN as needed 08/08/2015 09/16/2015 Inactive Zofran 4 mg tablet RxNorm: 345444 Tablet(s) 1 TABLET(S) PO Q6 PRN 06/19/2015 09/06/2015 Inactive Xanax 0.5 mg tablet RxNorm: 449760 1 Tablet(s) PO Q6 PRN as needed 06/19/2015 07/28/2015 Inactive colesevelam 625 mg tablet RxNorm: 327033 1 Tablet(s) PO TID before meals. 06/15/2015 06/14/2015 Inactive colesevelam 625 mg tablet RxNorm: 481707 3 Tablet(s) PO BID before meals. 06/15/2015 06/02/2016 Inactive DISREGARD 1 TID ORDER mupirocin 2 % topical ointment RxNorm: 137102 3/4 Application TOP BID 06/15/2015 07/14/2015 Inactive apply to legs twice daily until healed Synthroid 200 mcg tablet RxNorm: 936958 1 Tablet(s) PO daily 08/16/2015 Inactive Xanax 0.5 mg tablet RxNorm: 940862 1 Tablet(s) PO Q6 PRN as needed 05/30/2015 06/18/2015 Inactive hydrocodone 7.5 mg-acetaminophen 325 mg tablet RxNorm: 216964 1-2 Tablet(s) PO Q6 as needed 05/30/2015 08/07/2015 Inactive [SAVINGS FOR NON-COVERED DRUGS -- BIN: 190590, PCN: ASPROD1, Group: XXXXX, ID# [id number], Questions: . THIS IS NOT INSURANCE.] Zofran 4 mg tablet RxNorm: 176505 Tablet(s) 1 TABLET(S) PO Q6 PRN 05/30/2015 06/18/2015 Inactive Synthroid 175 mcg tablet RxNorm: 652421 1 Tablet(s) PO daily 06/14/2015 Inactive Neurontin 100 mg capsule RxNorm: 698925 1 Capsule(s) PO BID 06/02/2016 Inactive Humalog KwikPen 100 unit/mL subcutaneous RxNorm: 8423262 10 Unit(s) SQ daily before meals 05/17/2015 04/22/2016 Inactive Levemir 100 unit/mL subcutaneous solution RxNorm: 935875 15 Unit(s) SQ BID 05/17/2015 11/12/2015 Inactive carvedilol 3.125 mg tablet RxNorm: 897336 1 Tablet(s) PO BID 08/14/2015 Inactive Xanax 0.5 mg tablet RxNorm: 058010 1 Tablet(s) PO Q6 PRN as needed 03/24/2015 05/02/2015 Inactive hydrocodone 7.5 mg-acetaminophen 325 mg tablet RxNorm: 909679 1-2 Tablet(s) PO Q6 as needed 03/24/2015 05/29/2015 Inactive [SAVINGS FOR NON-COVERED DRUGS -- BIN: 423529, PCN: ASPROD1, Group: XXXXX, ID# [id number], Questions: . THIS IS NOT INSURANCE.] Xanax 0.5 mg tablet RxNorm: 924673 1 Tablet(s) PO Q6 PRN as needed 03/22/2015 03/23/2015 Inactive Xanax 0.5 mg tablet RxNorm: 363725 1 Tablet(s) PO Q6 PRN as needed 03/21/2015 03/21/2015 Inactive Zofran 4 mg tablet RxNorm: 450897 Tablet(s) TABLET(S) 1 TABLET(S) PO Q6 PRN 03/20/2015 05/16/2015 Inactive Protonix 40 mg tablet,delayed release RxNorm: 611055 TAKE 1 TABLET BY MOUTH EVERY DAY- DISCONTINUE OMEPRAZOLE 03/13/2015 Inactive hydrocodone 7.5 mg-acetaminophen 325 mg tablet RxNorm: 785432 1-2 Tablet(s) PO Q6 as needed 03/09/2015 03/23/2015 Inactive [SAVINGS FOR NON-COVERED DRUGS -- BIN: 526203, PCN: ASPROD1, Group: XXXXX, ID# [id number], Questions: . THIS IS NOT INSURANCE.] PhosLo 667 mg capsule RxNorm: 643480 2 Capsule(s) PO TID with meals 02/22/2015 05/16/2015 Inactive Protonix 40 mg tablet,delayed release RxNorm: 852136 1 Tablet(s) PO BID for 2 months (Feb and Mar) then 1 po daily thereafter 02/22/2015 03/12/2015 Inactive Bactroban 2 % topical ointment RxNorm: 552684 1 Application TOP BID 02/21/2015 03/06/2015 Inactive apply to open sores on face Zofran 4 mg tablet RxNorm: 814883 TABLET(S) 1 TABLET(S) PO Q6 PRN 02/19/2015 03/19/2015 Inactive Zofran 4 mg tablet RxNorm: 763986 Tablet(s) 1 TABLET(S) PO Q6 PRN 02/16/2015 05/29/2015 Inactive hydrocodone 7.5 mg-acetaminophen 325 mg tablet RxNorm: 953086 1-2 Tablet(s) PO Q6 as needed 02/15/2015 03/08/2015 Inactive [SAVINGS FOR NON-COVERED DRUGS -- BIN: 280294, PCN: ASPROD1, Group: XXXXX, ID# [id number], Questions: . THIS IS NOT INSURANCE.] Xanax 0.5 mg tablet RxNorm: 511748 1 Tablet(s) PO Q6 PRN as needed 02/15/2015 04/14/2015 Inactive carvedilol 6.25 mg tablet RxNorm: 772425 1/2 Tablet(s) PO BID 01/24/2015 04/23/2015 Inactive Levemir 100 unit/mL subcutaneous solution RxNorm: 856727 30 Unit(s) SQ BID 12/16/2014 05/16/2015 Inactive Levemir Flexpen 100 unit/mL (3 mL) solution subcutaneous insulin pen RxNorm: 000350 30 Unit(s) SQ BID doctor to adjust the medications based on his blood glucose readings. 12/16/2014 12/16/2014 Inactive give quantity sufficient Zofran 4 mg tablet RxNorm: 164723 Tablet(s) 1 TABLET(S) PO Q6 PRN 12/16/2014 02/15/2015 Inactive hydrocodone 7.5 mg-acetaminophen 325 mg tablet RxNorm: 842536 1-2 Tablet(s) PO Q6 as needed 12/12/2014 02/14/2015 Inactive [SAVINGS FOR NON-COVERED DRUGS -- BIN: 011125, PCN: ASPROD1, Group: XXXXX, ID# [id number], Questions: . THIS IS NOT INSURANCE.] Neurontin 100 mg capsule RxNorm: 079557 1 Capsule(s) PO TID 07/201412/15/2014 Inactive BRILINTA 90 mg tablet RxNorm: 2386696 1 Tablet(s) PO BID 201405/16/2015 Inactive Protonix 40 mg tablet,delayed release RxNorm: 224034 1 Tablet(s) PO every other day as needed for heartburn 11/22/201405/2014 Inactive Zofran 4 mg tablet RxNorm: 677251 1 TABLET(S) PO Q6 PRN 11/0412/15/2014 Inactive Coreg 3.125 mg tablet RxNorm: 224722 1/2 Tablet(s) PO BID 201401/23/2015 Inactive Zofran 4 mg tablet RxNorm: 412253 1 TABLET(S) PO Q6 PRN 10/0611/03/2014 Inactive hydrocodone 7.5 mg-acetaminophen 325 mg tablet RxNorm: 415783 1-2 Tablet(s) PO Q6 as needed 10/05/2014 12/11/2014 Inactive [SAVINGS FOR NON-COVERED DRUGS -- BIN: 206548, N: ASPROD1, Group: XXXXX, ID# [id number], Questions: . THIS IS NOT INSURANCE.] Xanax 0.5 mg tablet RxNorm: 887165 1 Tablet(s) PO Q6 PRN as needed 10/05/2014 11/21/2014 Inactive Zofran 4 mg tablet RxNorm: 486965 1 TABLET(S) PO Q6 PRN 09/1310/05/2014 Inactive Levemir Flexpen 100 unit/mL (3 mL) solution subcutaneous insulin pen RxNorm: 655033 30 Unit(s) SQ BID doctor to adjust the medications based on his blood glucose readings. 09/01/2014 08/31/2014 Inactive give quantity sufficient Levemir Flexpen 100 unit/mL (3 mL) solution subcutaneous insulin pen RxNorm: 156745 30 Unit(s) SQ BID doctor to adjust the medications based on his blood glucose readings. 09/01/2014 12/15/2014 Inactive give quantity sufficient Combivent Respimat 20 mcg-100 mcg/actuation solution for inhalation RxNorm: 4418642 1 inhale INH Q6 as needed 08/26/2014 11/21/2014 Inactive Zofran 4 mg tablet RxNorm: 280632 1 TABLET(S) PO Q6 PRN 08/25 No Stop Date Active Spiriva with HandiHaler 18 mcg & inhalation capsules RxNorm: 090161 1 Capsule(s) INH daily 08/16/2014 05/16/2015 Inactive Flomax 0.4 mg capsule RxNorm: 225700 1 Capsule(s) PO QHS 201411/21/2014 Inactive Xanax 0.5 mg tablet RxNorm: 303318 1 Tablet(s) PO Q6 PRN as needed 08/02/2014 09/10/2014 Inactive Zithromax Z-Bhavesh 250 mg tablet RxNorm: 519669 1 Tablet(s) PO UD 07/26/2014 07/30/2014 Inactive zpack albuterol sulfate 2.5 mg/3 mL (0.083 %) solution for nebulization RxNorm: 960038 3 Milliliter(s) INH Q8 07/26/2014 Inactive q 8 hr and prn prednisone 20 mg tablet RxNorm: 611601 1 Tablet(s) PO UD 201405/16/2015 Inactive 3 tab x 4 days, 2 tabs x 4 days 1 tab daily x 4 days ,1/2 tab daily x 4 days then 1/2 tab every other day x 4 doses then stop Coreg 12.5 mg tablet RxNorm: 848889 1/2 Tablet(s) PO BID with meals 07/19/2014 10/26/2014 Inactive d/c previous order for 12.5mg BID-needs to be 1/2 tab BID Zofran 4 mg tablet RxNorm: 444425 1 TABLET(S) PO Q6 PRN 06/2308/24/2014 Inactive hydrocodone 7.5 mg-acetaminophen 325 mg tablet RxNorm: 332404 1-2 Tablet(s) PO Q6 as needed 06/17/2014 10/04/2014 Inactive [SAVINGS FOR NON-COVERED DRUGS -- BIN: [id number], PCN: [id number], Group: [id number], ID# [id number], Questions: . THIS IS NOT INSURANCE.] hydrocodone 5 mg-acetaminophen 325 mg tablet RxNorm: 350050 1 Tablet(s) PO Q6 PRN as needed 05/19/2014 06/16/2014 Inactive Zofran 4 mg tablet RxNorm: 081183 1 TABLET(S) PO Q6 PRN 05/1906/22/2014 Inactive Neurontin 100 mg capsule RxNorm: 253043 1 Capsule(s) PO TID 11/05/2014 Inactive Zofran 4 mg tablet RxNorm: 064675 1 TABLET(S) PO Q6 PRN 04/28 No Stop Date Active levothyroxine 175 mcg tablet RxNorm: 809795 6=453lzk Tablet(s) PO daily 04/20/2014 04/14/2015 Inactive hydrocodone 5 mg-acetaminophen 325 mg tablet RxNorm: 383470 1 Tablet(s) PO Q6 PRN as needed 04/11/2014 05/18/2014 Inactive Xanax 0.5 mg tablet RxNorm: 651676 1 Tablet(s) PO Q6 PRN as needed 03/21/2014 04/27/2014 Inactive Humalog KwikPen 100 unit/mL subcutaneous RxNorm: 8095581 5 Unit(s) SQ TID with meals 03/14/2014 07/11/2014 Inactive Neurontin 100 mg capsule RxNorm: 492166 1 Capsule(s) TID 201405/09/2014 Inactive Neurontin 100 mg capsule RxNorm: 374184 1 Capsule(s) TID 1 CAPSULE(S) PO HS 03/14/2014 03/13/2014 Inactive Phenergan with Codeine Syrup RxNorm: 5 -10 Milliliter(s) PO Q6 PRN as needed 03/01/2014 03/06/2014 Inactive Zofran 4 mg tablet RxNorm: 880483 1 TABLET(S) PO Q6 PRN 02/2804/27/2014 Inactive metoclopramide 5 mg tablet RxNorm: 006403 1 Tablet(s) PO BID 11/21/2014 Inactive [SAVINGS FOR UNINSURED PATIENTS -- BIN:[id number], PCN: ASPROD1, Group: [id number] , ID# [id number], Process claim through [employer], for questions: . THIS IS NOT INSURANCE.] Apidra 100 unit/mL subcutaneous solution RxNorm: 204019 1 dose SQ UD 10 units SQ with breakfast, 10 units SQ with lunch, 10 units SQ with supper l 02/21/2014 03/13/2014 Inactive he does not need this filled, this is just fyi Zofran 4 mg tablet RxNorm: 271868 1 Tablet(s) PO Q6 PRN 02/07 No Stop Date Active amlodipine 5 mg tablet RxNorm: 151882 1 Tablet(s) PO daily 09/04/2014 Inactive Zithromax Z-Bhavesh 250 mg tablet RxNorm: 830284 1 Tablet(s) PO 02/20/2014 Inactive zpak Neurontin 100 mg capsule RxNorm: 296056 1 CAPSULE(S) PO HS 09/201303/13/2014 Inactive Carafate 1 gram tablet RxNorm: 342266 1 Tablet(s) PO QID 201301/19/2014 Inactive Instruct pt to slurry pillx1 month Carafate 1 gram tablet RxNorm: 789500 1 Tablet(s) PO QID 201302/18/2014 Inactive Instruct pt to slurry pillx1 month Zofran 4 mg tablet RxNorm: 103341 1 Tablet(s) PO Q6 PRN 01/1802/06/2014 Inactive hydrocodone 5 mg-acetaminophen 325 mg tablet RxNorm: 461761 1 Tablet(s) PO Q6 PRN as needed 01/18/2014 04/10/2014 Inactive Zofran 4 mg tablet RxNorm: 769308 1 TAB(S) PO Q6 HRS 2013 No Stop Date Active Cymbalta 30 mg capsule,delayed release RxNorm: 249086 Capsule(s) PO daily TAKE 1 CAPSULE BY MOUTH EVERY DAY 12/06/201306/2014 Inactive [SAVINGS FOR UNINSURED PATIENTS -- BIN:[id number], PCN: ASPROD1, Group: [id number], ID# [id number], Process claim through [employer], for questions: . THIS IS NOT INSURANCE.] Neurontin 100 mg capsule RxNorm: 436298 1 CAPSULE(S) PO HS 06/201301/19/2014 Inactive omeprazole 20 mg tablet,delayed release RxNorm: 203869 1 Tablet(s) PO daily 10/22/2013 05/19/2014 Inactive [SAVINGS FOR UNINSURED PATIENTS -- BIN:[id number], PCN: ASPROD1, Group: [id number], ID# [id number], Process claim through [employer], for questions: . THIS IS NOT INSURANCE.] omeprazole 20 mg tablet,delayed release RxNorm: 348098 1 Tablet(s) PO daily 10/22/2013 10/21/2013 Inactive levothyroxine 300 mcg tablet RxNorm: 580076 1 Tablet(s) PO daily 10/20/2013 04/19/2014 Inactive Cymbalta 60 mg capsule,delayed release RxNorm: 172364 TAKE 1 CAPSULE BY MOUTH EVERY DAY 09/28/2013 12/05/2013 Inactive Apidra 100 unit/mL subcutaneous solution RxNorm: 047025 1 dose SQ UD 15 units SQ with breakfast, 10 units SQ with lunch, 15 units SQ with supper l 09/09/2013 02/20/2014 Inactive he does not need this filled, this is just fyi Levemir Flexpen 100 unit/mL (3 mL) solution subcutaneous insulin pen RxNorm: 079103 20 Unit(s) SQ BID doctor to adjust the medications based on his blood glucose readings. 09/09/2013 03/07/2014 Inactive give quantity sufficient, pt does not need a refill, this is just fyi Synthroid 300 mcg tablet RxNorm: 812417 1 Tablet(s) PO daily 08/19/2014 Inactive Synthroid 25 mcg tablet RxNorm: 660839 1 Tablet(s) PO daily TAKE WITH THE 300MCG TAB TO EQUAL 325MCG 08/25/2013 10/19/2013 Inactive Humulin R 100 unit/mL injection solution RxNorm: 783744 Unit(s) Inj 08/23/2013 03/13/2014 Inactive sliding scale a Bactrim DS 800 mg-160 mg tablet RxNorm: 539959 1 Tablet(s) PO BID 08/19/2013 08/18/2013 Inactive please give him a probiotic to take while one antibiotic acyclovir 800 mg tablet RxNorm: 851273 1 Tablet(s) PO TID 08/1908/25/2013 Inactive Bactrim DS 800 mg-160 mg tablet RxNorm: 424183 1 Tablet(s) PO BID 08/19/2013 08/22/2013 Inactive please give him a probiotic to take while one antibiotic Apidra 100 unit/mL subcutaneous solution RxNorm: 345488 15 Unit(s) SQ BID l 08/02/2013 09/08/2013 Inactive Levemir Flexpen 100 unit/mL (3 mL) solution subcutaneous insulin pen RxNorm: 236327 20 Unit(s) SQ BID doctor to adjust the medications based on his blood glucose readings. 08/02/2013 09/08/2013 Inactive give quantity sufficient Apidra 100 unit/mL subcutaneous solution RxNorm: 057883 15 Unit(s) SQ AC 10 units with meals 08/02/2013 08/01/2013 Inactive Levemir Flexpen 100 unit/mL (3 mL) solution subcutaneous insulin pen RxNorm: 638883 35 Unit(s) SQ BID doctor to adjust the medications based on his blood glucose readings. 07/01/2013 08/01/2013 Inactive give quantity sufficient Apidra 100 unit/mL subcutaneous solution RxNorm: 184112 15 Unit(s) SQ AC 10 units with meals 07/01/2013 07/30/2013 Inactive Levemir Flexpen 100 unit/mL (3 mL) solution subcutaneous insulin pen RxNorm: 973355 30 Unit(s) SQ BID doctor to adjust the medications based on his blood glucose readings. 06/21/2013 06/30/2013 Inactive give quantity sufficient Apidra 100 unit/mL subcutaneous solution RxNorm: 439771 10 Unit(s) SQ AC 10 units with meals 06/21/2013 06/30/2013 Inactive Accu-Chek FastClix RxNorm: 1 Miscellaneous TID 06/03/2013 05/16/2015 Inactive Accu-Chek FastClix RxNorm: 1 Miscellaneous TID 06/03/2013 06/02/2013 Inactive albuterol sulfate 2.5 mg/3 mL (0.083 %) solution for nebulization RxNorm: 420283 1 Milliliter(s) INH Q8 06/01/2013 Inactive q 8 hr and prn Synthroid 25 mcg tablet RxNorm: 590490 1 Tablet(s) PO BID TAKE WITH THE 300MCG TAB TO EQUAL 325MCG 04/30/2013 04/29/2013 Inactive Synthroid 300 mcg tablet RxNorm: 244337 1 Tablet(s) PO daily 08/24/2013 Inactive Synthroid 25 mcg tablet RxNorm: 686652 1 Tablet(s) PO daily TAKE WITH THE 300MCG TAB TO EQUAL 325MCG 04/30/2013 08/24/2013 Inactive BD Insulin Pen Needle UF Short 31 X 516" RxNorm: Miscellaneous 04/30/2013 07/28/2013 Inactive Neurontin 100 mg capsule RxNorm: 560857 1 Capsule(s) PO HS 07/27/2013 Inactive Levemir Flexpen 100 unit/mL (3 mL) solution subcutaneous insulin pen RxNorm: 288750 115 Unit(s) SQ BID 03/29/20132013 Inactive give quantity sufficient hydrocodone 5 mg-acetaminophen 325 mg tablet RxNorm: 937701 1 Tablet(s) PO Q6 PRN 03/15/2013 03/14/2013 Inactive hydrocodone 5 mg-acetaminophen 325 mg tablet RxNorm: 049919 1 Tablet(s) PO Q6 PRN 03/15/2013 No Stop Date Active Xanax 0.5 mg tablet RxNorm: 145219 1 Tablet(s) PO Q6 PRN 03/0905/06/2013 Inactive amlodipine 5 mg tablet RxNorm: 209637 1 Tablet(s) PO daily 10/04/2013 Inactive BD Insulin Pen Needle UF Short 31 X 516" RxNorm: Miscellaneous 02/25/2013 04/29/2013 Inactive clindamycin 150 mg capsule RxNorm: 199591 1 Capsule(s) PO QID 12/11/2012 12/17/2012 Inactive lisinopril 5 mg tablet RxNorm: 725099 1 Tablet(s) PO daily 09/201209/08/2013 Inactive Levemir Flexpen 100 unit/mL (3 mL) solution subcutaneous insulin pen RxNorm: 299483 110 Unit(s) SQ BID 11/24/20122013 Inactive give quantity sufficient Influenza Virus Vaccine 0.5 mL RxNorm: IM 11/10/2012 11/10/2012 Inactive FreeStyle Lite Strips RxNorm: 1 Miscellaneous 10/13/2012 05/16/2015 Inactive please give lancets also using up to seven dailydx 250.03 doxycycline hyclate 100 mg tablet RxNorm: 488490 1 Tablet(s) PO BID 10/13/2012 10/19/2012 Inactive Phenergan with Codeine Syrup RxNorm: 5 Milliliter(s) PO Q6 PRN 09/04/2012 09/24/2012 Inactive Zithromax Z-Bhavesh 250 mg tablet RxNorm: 902918 Tablet(s) PO 09/0211/23/2012 Inactive zpak Synthroid 300 mcg tablet RxNorm: 097571 1 Tablet(s) PO daily 04/29/2013 Inactive Levemir Flexpen 100 unit/mL (3 mL) solution subcutaneous insulin Pen RxNorm: 258781 120 units am, 100 units pm Unit(s) SQ QAM 08/25/2012 09/23/2012 Inactive disregard 1st RX-I increased the dose Ultram 50 mg tablet RxNorm: 916636 1 Tablet(s) PO Q4 PRN 08/1211/21/2014 Inactive Cymbalta 60 mg capsule,delayed release RxNorm: 420453 Capsule(s) PO TAKE 1 CAPSULE BY MOUTH EVERY DAY 08/11/201212/2013 Inactive Apidra SoloStar 100 unit/mL Sub-Q Insulin Pen RxNorm: 190373 60 Unit Dose SQ QAM 06/25/2012 08/24/2012 Inactive Levemir Flexpen 100 unit/mL (3 mL) Sub-Q Insulin Pen RxNorm: 681294 100 Unit(s) SQ QAM 06/25/2012 07/24/2012 Inactive disregard 1st RX-I increased the dose Synthroid 300 mcg tablet RxNorm: 932629 total 325mcg daily Tablet(s) PO daily 06/23/2012 08/24/2012 Inactive Apidra SoloStar 100 unit/mL Sub-Q Insulin Pen RxNorm: 063967 45 Unit Dose SQ TID 55 units with meals 05/12/2012 05/11/2012 Inactive Levemir Flexpen 100 unit/mL (3 mL) Sub-Q Insulin Pen RxNorm: 465984 140 Unit(s) SQ as doctor directed 90 units in the morning and 90 units at bedtime 05/12/2012 06/24/2012 Inactive disregard 1st RX-I increased the dose Apidra SoloStar 100 unit/mL Sub-Q Insulin Pen RxNorm: 992193 55 Unit Dose SQ TID 55 units with meals 05/12/2012 06/24/2012 Inactive Synthroid 200 mcg tablet RxNorm: 305347 1 Tablet(s) PO daily this is in addition to 75mcg for total of 275mcg 03/18/2012 Inactive this is in addition to 75mcg for total of 275mcgname brand synthroid only Synthroid 75 mcg tablet RxNorm: 477410 1 Tablet(s) PO take with 200mcg tablet to equal 275mcg daily 03/18/2012 05/05/2012 Inactive Ranexa 500 mg tablet,extended release RxNorm: 675379 Tablet(s) PO TAKE 1 TABLET BY MOUTH TWICE DAILY 02/19/20122013 Inactive Synthroid 50 mcg tablet RxNorm: 731404 1 Tablet(s) PO daily 03/17/2012 Inactive this is in addition to 200mcg tab for total of 250mcg dailyname brand synthroid only Synthroid 200 mcg tablet RxNorm: 878175 1 Tablet(s) PO daily 02/05/2012 Inactive this is in addition to 50mcg for total of 250mcg Synthroid 200 mcg tablet RxNorm: 874251 1 Tablet(s) PO daily 03/17/2012 Inactive this is in addition to 50mcg for total of 250mcgname brand synthroid only Ranexa 500 mg tablet,extended release RxNorm: 126293 Tablet(s) PO TAKE 1 TABLET BY MOUTH TWICE DAILY 01/20/20122013 Inactive Levemir Flexpen 100 unit/mL (3 mL) Sub-Q Insulin Pen RxNorm: 091362 140 Unit(s) SQ as doctor directed 55 units in the morning and 85 units at bedtime 01/02/2012 05/11/2012 Inactive disregard 1st RX-I increased the dose Apidra SoloStar 100 unit/mL Sub-Q Insulin Pen RxNorm: 913835 45 Unit Dose SQ TID 45 units with meals 01/02/2012 03/31/2012 Inactive Ranexa 500 mg tablet,extended release RxNorm: 445448 Tablet(s) PO 12/19/2011 08/17/2013 Inactive TAKE 1 TABLET BY MOUTH TWICE DAILY glipizide 10 mg tablet RxNorm: 760037 Tablet(s) PO 12/16/2011 08/01/2013 Inactive TAKE 1 TABLET BY MOUTH EVERY DAY levothyroxine 200 mcg tablet RxNorm: 695033 Tablet(s) PO 201102/05/2012 Inactive TAKE 1 TABLET BY MOUTH EVERY DAY Apidra SoloStar 100 unit/mL Sub-Q Insulin Pen RxNorm: 994530 35 Unit Dose SQ TID with meals 12/02/2011 01/01/2012 Inactive Ranexa 500 mg tablet,extended release RxNorm: 508128 Tablet(s) PO 11/22/2011 08/24/2013 Inactive TAKE 1 TABLET BY MOUTH TWICE DAILY Apidra SoloStar 100 unit/mL Sub-Q Insulin Pen RxNorm: 151147 30 Unit Dose SQ TID with meals 11/21/2011 12/01/2011 Inactive Levemir Flexpen 100 unit/mL (3 mL) Sub-Q Insulin Pen RxNorm: 064562 100 Unit(s) SQ as doctor directed 40 units in the morning and 75units at bedtime 11/21/2011 11/20/2011 Inactive nystatin 100,000 unit/mL Oral Susp RxNorm: 382454 6 Milliliter(s) PO QID 11/21/2011 11/30/2011 Inactive Levemir Flexpen 100 unit/mL (3 mL) Sub-Q Insulin Pen RxNorm: 104033 100 Unit(s) SQ as doctor directed 45 units in the morning and 75units at bedtime 11/21/2011 01/01/2012 Inactive disregard 1st RX-I increased the dose Levemir Flexpen 100 unit/mL (3 mL) Sub-Q Insulin Pen RxNorm: 321797 100 Unit(s) SQ as doctor directed 40 units in the morning and 75units at bedtime 10/24/2011 11/20/2011 Inactive Ranexa 500 mg tablet,extended release RxNorm: 375777 Tablet(s) PO 10/22/2011 08/25/2013 Inactive TAKE 1 TABLET BY MOUTH TWICE DAILY Ranexa 500 mg tablet,extended release RxNorm: 243005 Tablet(s) PO 09/23/2011 08/17/2013 Inactive TAKE 1 TABLET BY MOUTH TWICE DAILY glipizide 10 mg tablet RxNorm: 861974 Tablet(s) PO 09/20/2011 07/31/2013 Inactive TAKE 1 TABLET BY MOUTH EVERY DAY levothyroxine 200 mcg tablet RxNorm: 077082 Tablet(s) PO 201105/05/2012 Inactive TAKE 1 TABLET BY MOUTH EVERY DAY Apidra SoloStar 100 unit/mL Sub-Q Insulin Pen RxNorm: 548648 25 Unit Dose SQ TID with meals 09/05/2011 11/20/2011 Inactive Apidra SoloStar 100 unit/mL Sub-Q Insulin Pen RxNorm: 807994 20 Unit Dose SQ TID with meals 09/05/2011 09/04/2011 Inactive Levemir Flexpen 100 unit/mL (3 mL) Sub-Q Insulin Pen RxNorm: 900577 100 Unit(s) SQ as doctor directed 30 units in the morning and 70units at bedtime 09/05/2011 10/23/2011 Inactive Ranexa 500 mg tablet,extended release RxNorm: 929277 Tablet(s) PO 08/26/2011 09/22/2011 Inactive TAKE 1 TABLET BY MOUTH TWICE DAILY Levemir Flexpen 100 unit/mL (3 mL) Sub-Q Insulin Pen RxNorm: 335441 90 Unit(s) SQ as doctor directed 25 units in the morning and 65 units at bedtime 08/26/2011 09/04/2011 Inactive FreeStyle Lancets RxNorm: 1 test Miscellaneous TID 201106/18/2014 Inactive dispense quantity sufficient for three times daily testing Apidra SoloStar 100 unit/mL Sub-Q Insulin Pen RxNorm: 801852 20 Unit Dose SQ TID with meals 07/05/2011 09/04/2011 Inactive Levemir Flexpen 100 unit/mL (3 mL) Sub-Q Insulin Pen RxNorm: 583391 90 Unit(s) SQ as doctor directed 25 units in the morning and 65 units at bedtime 07/05/2011 08/03/2011 Inactive Levemir Flexpen 100 unit/mL (3 mL) Sub-Q Insulin Pen RxNorm: 230392 90 Unit(s) SQ as doctor directed 25 units in the morning and 65 units at bedtime 06/24/2011 07/04/2011 Inactive Apidra SoloStar 100 unit/mL Sub-Q Insulin Pen RxNorm: 720879 15 Unit Dose SQ TID with meals 06/24/2011 06/23/2011 Inactive Apidra SoloStar 100 unit/mL Sub-Q Insulin Pen RxNorm: 660411 20 Unit Dose SQ TID with meals 06/24/2011 07/04/2011 Inactive metoprolol succinate ER 25 mg 24 hr Tab RxNorm: 689050 1 Tablet(s) PO BID 06/24/2011 07/19/2014 Inactive Apidra SoloStar 100 unit/mL Sub-Q Insulin Pen RxNorm: 456741 12 Unit Dose SQ TID with meals 06/21/2011 06/23/2011 Inactive Levemir Flexpen 100 unit/mL (3 mL) Sub-Q Insulin Pen RxNorm: 094864 75 Unit(s) SQ as doctor directed 20 units in the morning and 65 units at bedtime 06/21/2011 06/23/2011 Inactive Levemir Flexpen 100 unit/mL (3 mL) Sub-Q Insulin Pen RxNorm: 125118 75 Unit(s) SQ as doctor directed 15 units in the morning and 60 units at bedtime 04/23/2011 06/20/2011 Inactive Ranexa 500 mg 12 hr Tab RxNorm: 031438 1 Tablet(s) PO BID 04/2208/25/2011 Inactive Levemir Flexpen 100 unit/mL (3 mL) Sub-Q Insulin Pen RxNorm: 050896 75 Unit(s) SQ as doctor directed 15 [...] alsodx 250.03 Plavix 75 mg Tab RxNorm: 197377 1 Tablet(s) PO daily 201109/19/2011 Inactive glipizide 10 mg tablet RxNorm: 211802 1 Tablet(s) PO daily 04/201109/17/2011 Inactive levothyroxine 200 mcg tablet RxNorm: 338470 1 Tablet(s) PO daily 03/22/2011 09/17/2011 Inactive Cymbalta 60 mg capsule,delayed release RxNorm: 872451 Capsule(s) PO 01/15/2011 08/10/2012 Inactive TAKE 1 CAPSULE BY MOUTH DAILY;Patient requests 90 day supply clarithromycin 500 mg Tab RxNorm: 789898 1 Tablet(s) PO BID 08/201004/23/2011 Inactive Ventolin 90 mcg/Actuation Aerosol Inhaler RxNorm: 154237 1 INH QID use the sample as directed until medication is completed 10/24/2010 04/23/2011 Inactive Phenergan with Codeine Syrup RxNorm: 5-10 Milliliter(s) PO Q6 PRN take medication q 6 hours prn for cough 10/24/2010 04/23/2011 Inactive fill 10 ounces of the medication Cymbalta 60 mg Cap RxNorm: 422127 1 Capsule(s) PO daily 10/1501/12/2011 Inactive Lipitor 40 mg Tab RxNorm: 381880 1 Tablet(s) PO daily 201005/16/2015 Inactive metformin 1,000 mg Tab RxNorm: 543738 1 Tablet(s) PO BID 201004/23/2011 Inactive ondansetron HCl 4 mg tablet RxNorm: 098050 1 Tablet(s) PO TID as needed No Start Date Active Norvasc 5 mg tablet RxNorm: 783007 1 Tablet(s) PO daily No Start Date Active Kionex 15 gram/60 mL oral suspension RxNorm: 237630 60 Milliliter(s) PO UD per dr. tompkins's rx No Start Date Active sodium bicarbonate oral RxNorm: 82571 oral No Start Date Active aspirin 81 mg capsule,delayed release RxNorm: 849060 1 Capsule(s) PO QHS as needed No Start Date Active Flomax 0.4 mg capsule RxNorm: 331512 1 Capsule(s) PO QHS No Start Date 08/10/2014 Inactive Coreg 12.5 mg tablet RxNorm: 369149 1 Tablet(s) PO BID with meals No Start Date 07/18/2014 Inactive Combivent Respimat 20 mcg-100 mcg/actuation solution for inhalation RxNorm: 2912425 1 INH Q6 as needed No Start Date 08/25 Inactive Tessalon 200 mg capsule RxNorm: 932239 1 Capsule(s) PO TID as needed No Start Date 06/14/2015 Inactive omeprazole 40 mg capsule,delayed release RxNorm: 762926 1 Capsule(s) PO daily No Start Date 10/10/2016 Inactive Ultram 50 mg tablet RxNorm: 971725 1 Tablet(s) PO Q4 PRN No Start Date 08/11/2012 Inactive benzonatate 100 mg capsule RxNorm: 933206 1 Capsule(s) PO TID for cough No Start Date 11/21/2014 Inactive lactulose 10 gram/15 mL oral solution RxNorm: 369155 15 Milliliter(s) PO BID No Start Date 06/02/2016 Inactive Levemir FlexTouch 100 unit/mL (3 mL) subcutaneous insulin pen RxNorm: 017643 15 Unit(s) SQ BID No Start Date 11/12/2015 Inactive [place] 3 Fish Oil capsule RxNorm: 1 Capsule(s) PO daily No Start Date 06/02/2016 Inactive Levaquin 750 mg tablet RxNorm: 623648 1 Tablet(s) PO every other day No Start Date 11/14/2014 Inactive isosorbide mononitrate ER 30 mg tablet,extended release 24 hr RxNorm: 926919 1 Tablet(s) PO daily No Start Date 2017 Inactive Dulera 200 mcg-5 mcg/actuation HFA aerosol inhaler RxNorm: 1360273 1 INH BID No Start Date 06/14/2015 Inactive Plavix 75 mg tablet RxNorm: 839839 1 Tablet(s) PO QAM No Start Date 06/02/2016 Inactive PhosLo 667 mg capsule RxNorm: 636205 1 Capsule(s) PO TID with meals No Start Date 06/02/2016 Inactive hydrocodone 5 mg-acetaminophen 325 mg tablet RxNorm: 004328 1 Tablet(s) PO Q6 PRN No Start Date 03/14/2013 Inactive Phenergan with Codeine Syrup RxNorm: 1 or 2 PO Q6 PRN No Start Date 08/23/2012 Inactive Symbicort 160 mcg-4.5 mcg/actuation HFA aerosol inhaler RxNorm: 9456988 1 INH BID No Start Date 11/21/2014 Inactive BD Insulin Pen Needle UF Short 31 X 5/16" RxNorm: miscellaneous No Start Date 02/24/2013 Inactive cyclobenzaprine 10 mg tablet RxNorm: 371623 1 Tablet(s) PO Q8 as needed No Start Date 10/08/2017 Inactive Apidra 100 unit/mL subcutaneous solution RxNorm: 799120 Unit(s) SQ 10 units with meals No Start Date 06/20/2013 Inactive colesevelam 625 mg tablet RxNorm: 656472 3 Tablet(s) PO BID before meals. No Start Date 06/14/2015 Inactive Apidra SoloStar 100 unit/mL Sub-Q Insulin Pen RxNorm: 618821 5 Unit Dose SQ TID with meals No Start Date 06/20/2011 Inactive Spiriva with HandiHaler 18 mcg & inhalation capsules RxNorm: 566344 1 Capsule(s) INH daily No Start Date 08/15/2014 Inactive albuterol sulfate 2.5 mg/3 mL (0.083 %) solution for nebulization RxNorm: 383909 1 Milliliter(s) INH Q8 PRN No Start Date 05/31/2013 Inactive losartan 25 mg tablet RxNorm: 210920 1 Tablet(s) PO daily No Start Date 11/14/2016 Inactive Zithromax Z-Bhavesh 250 mg tablet RxNorm: 556375 Tablet(s) PO No Start Date 09/01/2012 Inactive zpak Symbicort 160 mcg-4.5 mcg/Actuation Inhalation HFA Aerosol Inhaler RxNorm: 2699682 1 INH BID use the sample as directed until medication is completed No Start Date 04/23/2011 Inactive Aranesp 40 mcg/mL (in polysorbate) Injection RxNorm: 090599 1 Milliliter(s) Inj QW No Start Date 08/13/2015 Inactive hydralazine 50 mg tablet RxNorm: 028137 1 Tablet(s) PO TID No Start Date 09/24/2015 Inactive Humulin R 100 unit/mL injection solution RxNorm: 252345 Unit(s) Inj No Start Date 08/22/2013 Inactive sliding scale a Apidra SoloStar 100 unit/mL Sub-Q Insulin Pen RxNorm: 143828 70 units am, 70 units noon, 60 units supper Unit(s) SQ No Start Date 06/07/2013 Inactive PhosLo 667 mg capsule RxNorm: 957948 1 Capsule(s) PO TID with meals No Start Date 02/21/2015 Inactive Synthroid 50 mcg tablet RxNorm: 330698 1 Tablet(s) PO daily No Start Date 02/05/2012 Inactive metoprolol succinate ER 25 mg 24 hr Tab RxNorm: 508516 1/2 Tablet(s) PO BID No Start Date 06/23/2011 Inactive Levemir Flexpen 100 unit/mL (3 mL) Sub-Q Insulin Pen RxNorm: 432160 50 Unit(s) SQ QHS No Start Date 04/22/2011 Inactive flecainide 100 mg tablet RxNorm: 013161 1 Tablet(s) PO BID No Start Date 06/02/2016 Inactive Tessalon Perles 100 mg capsule RxNorm: 429577 1 Capsule(s) PO TID as needed No Start Date 11/04/2017 Inactive hydrocodone 5 mg-acetaminophen 325 mg tablet RxNorm: 595451 1-2 Tablet(s) PO Q4H as needed No Start Date 10/10/2016 Inactive Synthroid 300 mcg tablet RxNorm: 686179 1 Tablet(s) PO daily No Start Date 06/22/2012 Inactive Tessalon 200 mg capsule RxNorm: 394955 1 Capsule(s) PO TID as needed No Start Date 11/03/2017 Inactive hydrocodone 7.5 mg-acetaminophen 325 mg tablet RxNorm: 463364 1-2 Tablet(s) PO Q6 as needed No Start Date 06/16/2014 Inactive Zofran 4 mg tablet RxNorm: 572413 1 Tablet(s) PO Q6 PRN No Start Date 12/16/2013 Inactive Synthroid 88 mcg tablet RxNorm: 345585 1 Tablet(s) PO daily takes with 200mcg to equal 288mcg No Start Date 06/22/2012 Inactive Miralax 17 gram oral powder packet RxNorm: 736025 1 PO daily No Start Date 07/24/2017 Inactive ProAir HFA 90 mcg/actuation aerosol inhaler RxNorm: 125128 INH Q4H as needed 108mcg No Start Date 08/13/2015 Inactive Colace 100 mg capsule RxNorm: 4637498 1 Capsule(s) PO QAM No Start Date 08/13/2015 Inactive Medication Administered Medication Codes Instructions Start Date Status Kenalog 40 mg/mL suspension for injection RxNorm: 7670303 1Milliliter 01/29/2018 No longer Active Phenergan 25 mg/mL injection solution RxNorm: 110369 1Milliliter 09/19/2015 No longer Active Kenalog 40 mg/mL suspension for injection RxNorm: 5398431 Milliliter 08/18/2015 No longer Active Influenza Virus Vaccine 0.5 mL RxNorm: 11/10/2012 No longer Active Immunizations Vaccine Codes Date Status Influenza CVX: 141 11/17/2017 completed Influenza CVX: 141 11/24/2015 completed Pneumococcal (Adult) CVX: 133 11/24/2015 completed Influenza CVX: 141 11/11/2013 completed Influenza CVX: 141 11/10/2012 completed Assessments Condition Codes Effective Dates Cough ICD-10: R05 ICD-9: 786.2 01/29/2018 Pneumonia due to other specified bacteria ICD-10: J15.8 ICD-9: 482.81 01/29/2018 Essential (primary) hypertension ICD-10: I10 ICD-9: 401.9 01/01/2018 Encounter for immunization ICD-10: Z23 ICD-9: V04.81 11/17/2017 Acute bronchitis, unspecified ICD-10: J20.9 ICD-9: 466.0 11/04/2017 Chronic kidney disease, stage 5 ICD-10: N18.5 ICD-9: 585.5 10/21/2017 Hypothyroidism, unspecified ICD-10: E03.9 ICD-9: 244.9 08/07/2017 Encounter for general adult medical examination with abnormal findings ICD-10: Z00.01 ICD-9: V70.0 07/25/2017 Type 2 diabetes mellitus with hyperglycemia ICD-10: E11.65 ICD-9: 250.02 06/25/2017 Pain in right shoulder ICD-10: M25.511 ICD-9: 719.41 06/06/2017 Pain in right knee ICD-10: M25.561 ICD-9: 719.46 06/06/2017 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 ICD-9: 250.02 05/01/2017 Gastro-esophageal reflux disease without esophagitis ICD-10 : K21.9 ICD-9: 530.81 10/11/2016 Low back pain ICD-10: M54.5 ICD-9: 724.2 10/11/2016 Slow transit constipation ICD-10: K59.01 ICD-9: 564.01 06/03/2016 Occlusion and stenosis of bilateral carotid arteries ICD-10 : I65.23 ICD-9: 433.10 05/07/2016 Vomiting without nausea ICD-10: R11.11 ICD-9: 787.03 04/23/2016 Other retention of urine ICD-10: R33.8 ICD-9: 788.29 04/22/2016 End stage renal disease ICD-10: N18.6 ICD-9: 585.6 04/08/2016 Encounter for immunization ICD-10: Z23 ICD-9: V06.6 11/24/2015 Dyspnea, unspecified ICD-10: R06.00 ICD-9: 786.09 11/13/2015 Chronic obstructive pulmonary disease, unspecified ICD-10: J44.9 ICD-9: 496 11/13/2015 Obstructive sleep apnea (adult) (pediatric) ICD-10: G47.33 ICD-9: 327.23 11/13/2015 Contusion of other part of head, initial encounter ICD-10: S00.83XA ICD-9: 920 10/20/2015 Headache ICD-10: R51 ICD-9: 784.0 10/20/2015 Dizziness and giddiness ICD-10: R42 ICD-9: 780.4 09/25/2015 Gastroparesis ICD-10: K31.84 ICD-9: 536.3 09/19/2015 Nausea with vomiting, unspecified ICD-10: R11.2 ICD-9: 787.01 09/19/2015 Wheezing ICD-10: R06.2 ICD-9: 786.07 08/25/2015 Pneumonia due to other specified bacteria ICD-10: J15.8 ICD-9: 482.89 08/25/2015 Shortness of breath ICD-10: R06.02 ICD-9: 786.05 08/25/2015 Onycholysis ICD-10: L60.1 ICD-9: 703.8 08/08/2015 [...] ICD-9: 584.9 07/19/2014 HEADACHE ICD-9: 784.0 04/01/2014 Peripheral neuropathy ICD-9: 356.9 2014 Nausea ICD-9: 787.02 03/14/2014 HYPOTHYROIDISM ICD-9: 244.9 02/21/2014 Gastroparesis ICD-9: 536.3 02/21/2014 ESSENTIAL HYPERTENSION ICD-9: 401.9 02/21 Elevated white blood cell count ICD-9: 288.60 01/31/2014 Dysuria ICD-9: 788.1 01/31/2014 Low back pain ICD-9: 724.2 01/18/2014 Neck pain ICD-9: 723.1 01/18/2014 Abdominal pain ICD-9: 789.00 08/19/2013 Orthostatic hypotension [...] 2012 Syncope ICD-9: 780.2 09/17/2012 [facility] ICD-9: E888.9 2012 LYMPHOMAS NEC EXTRANODAL/NOS ICD-9: 202.80 02/03/2012 Mouth dryness ICD-9: 527.7 01/02/2012 THRUSH ICD-9: 112.0 12/02/2011 OBESITY ICD-9: 278.00 10/24/2011 Depression ICD-9: 311 04/23/2011 Mycoplasma pneumonia ICD-9: 483.0 2010 Reason For Visit Reason For Visit Effective Dates Notes cough 01/29/2018 hypertension 01/01/2018 cough 12/01/2017 Hospital Follow Up 11/17/2017 cough 11/04/2017 Hospital Follow Up 10/21/2017 hypertension 08/07/2017 Annual Medicare Wellness Exam 07/25/2017 diabetes mellitus 06/25/2017 pain, generalized 06/06/2017 hypertension 05/01/2017 hypertension 01/21/2017 blood pressure followup 10/11/2016 blood [...] Observation Code Item Item Code Result Date Free T4 Sad064 FREE T4 <0.25 ng/dL 05/02/2017 Tsh Ord6 TSH (3rd IS) >50.40 Result Verified By Repeat Analysis uIU/mL 05/02/2017 Comp Metabolic Lib974 NA 138 mEq/L 05/01/2017 Comp Metabolic Rsv006 K 4.8 mEq/L 05/01/2017 Comp Metabolic Sau941 CL 100 mEq/L 05/01/2017 Comp Metabolic Mnb925 CO2 28.0 mEq/L 05/01/2017 Comp Metabolic Ier883 ANION GAP 15 05/01/2017 Comp Metabolic Cfo613 GLUCOSE 113 mg/dL 05/01/2017 Comp Metabolic Vbx090 Creat 4.3 mg/dL 05/01/2017 Comp Metabolic Hak748 eGFR 15 ml/min/1.73m2 05/01/2017 Comp Metabolic Erj541 BUN 29 mg/dL 05/01/2017 Comp Metabolic Udw198 B/C Ratio 6.8 Ratio 05/01/2017 Comp Metabolic Ric186 CALCIUM 8.8 mg/dL 05/01/2017 Comp Metabolic Uzv937 ALK PHOS 53 U/L 05/01/2017 Comp Metabolic Kiu345 AST(SGOT) 12 U/L 05/01/2017 Comp Metabolic Jzs753 ALT(SGPT) 11 U/L 05/01/2017 Comp Metabolic Vqa443 BILI T 0.3 mg/dL 05/01/2017 Comp Metabolic Vks030 ALBUMIN 3.9 g/dL 05/01/2017 Comp Metabolic Qrn605 TPRO 5.8 g/dL 05/01/2017 Comp Metabolic Wjm358 GLOB 2.0 g/dL 05/01/2017 Comp Metabolic Nyg610 A/G Ratio 2.0 Ratio 05/01/2017 Comp Metabolic Lth924 Osmo 282 mOsmo 05/01/2017 %Hba1C Lce211 % HbA1c 38952-2 5.8 % 05/01/2017 %Hba1C Bhq842 Gluc Ave 120 mg/dL 05/01/2017 Cbc With Differential Ord2 WBC 7.15 K/ul 05/01/2017 Cbc With Differential Ord2 RBC 3.07 M/ul 05/01/2017 Cbc With Differential Ord2 HGB 10.5 g/dl 05/01/2017 Cbc With Differential Ord2 Neut% 70.2 % 05/01/2017 Cbc With Differential Ord2 HCT 31.4 % 05/01/2017 Cbc With Differential Ord2 Lymph% 16.9 % 05/01/2017 Cbc With Differential Ord2 MCV 102.3 fl 05/01/2017 Cbc With Differential Ord2 MCH 34.2 pg 05/01/2017 Cbc With Differential Ord2 Navarro% 7.4 % 05/01/2017 Cbc With Differential Ord2 MCHC 33.4 pg 05/01/2017 Cbc With Differential Ord2 Eos% 4.9 % 05/01/2017 Cbc With Differential Ord2 PLT 196 K/ul 05/01/2017 Cbc With Differential Ord2 Baso% 0.6 % 05/01/2017 Cbc With Differential Ord2 RDW 14.9 % 05/01/2017 Cbc With Differential Ord2 Neut ABS# 5.02 K/ul 05/01/2017 Cbc With Differential Ord2 Lymph ABS# 1.21 K/ul 05/01/2017 Cbc With Differential Ord2 [place] ABS# 0.5 K/ul 05/01/2017 Cbc With Differential Ord2 Eos ABS# 0.4 K/ul 05/01/2017 Cbc With Differential Ord2 Baso ABS# 0.0 K/ul 05/01/2017 Comp Metabolic Hpi773 NA 138 mEq/L 01/21/2017 Comp Metabolic Myb775 K 4.8 mEq/L 01/21/2017 Comp Metabolic Ccz591 CL 100 mEq/L 01/21/2017 Comp Metabolic Bjf779 CO2 31.0 mEq/L 01/21/2017 Comp Metabolic Rcq845 ANION GAP 12 01/21/2017 Comp Metabolic Wgg262 GLUCOSE 150 mg/dL 01/21/2017 Comp Metabolic Inx659 Creat 4.1 mg/dL 01/21/2017 Comp Metabolic Yxj688 eGFR 15 ml/min/1.73m2 01/21/2017 Comp Metabolic Vzl255 BUN 23 mg/dL 01/21/2017 Comp Metabolic Wat874 B/C Ratio 5.6 Ratio 01/21/2017 Comp Metabolic Tyw142 CALCIUM 9.0 mg/dL 01/21/2017 Comp Metabolic Ori132 ALK PHOS 65 U/L 01/21/2017 Comp Metabolic Fvw824 AST(SGOT) 12 U/L 01/21/2017 Comp Metabolic Lqo905 ALT(SGPT) 9 U/L 01/21/2017 Comp Metabolic Dww312 BILI T 0.3 mg/dL 01/21/2017 Comp Metabolic Yag519 ALBUMIN 3.8 g/dL 01/21/2017 Comp Metabolic Ujy685 TPRO 6.0 g/dL 01/21/2017 Comp Metabolic Hfo254 GLOB 2.2 g/dL 01/21/2017 Comp Metabolic Jrn071 A/G Ratio 1.8 Ratio 01/21/2017 Comp Metabolic Isp540 Osmo 282 mOsmo 01/21/2017 Cbc With Differential Ord2 WBC 5.29 K/ul 01/21/2017 Cbc With Differential Ord2 RBC 3.69 M/ul 01/21/2017 Cbc With Differential Ord2 HGB 12.6 g/dl 01/21/2017 Cbc With Differential Ord2 Neut% 61.5 % 01/21/2017 Cbc With Differential Ord2 HCT 37.2 % 01/21/2017 Cbc With Differential Ord2 Lymph% 18.3 % 01/21/2017 Cbc With Differential Ord2 MCV 100.8 fl 01/21/2017 Cbc With Differential Ord2 MCH 34.1 pg 01/21/2017 Cbc With Differential Ord2 Navarro% 7.9 % 01/21/2017 Cbc With Differential Ord2 Eos% 11.7 % 01/21/2017 Cbc With Differential Ord2 MCHC 33.9 pg 01/21/2017 Cbc With Differential Ord2 PLT 161 K/ul 01/21/2017 Cbc With Differential Ord2 Baso% 0.6 % 01/21/2017 Cbc With Differential Ord2 Neut ABS# 3.25 K/ul 01/21/2017 Cbc With Differential Ord2 RDW 13.6 % 01/21/2017 Cbc With Differential Ord2 Lymph ABS# 0.97 K/ul 01/21/2017 Cbc With Differential Ord2 [place] ABS# 0.4 K/ul 01/21/2017 Cbc With Differential Ord2 Eos ABS# 0.6 K/ul 01/21/2017 Cbc With Differential Ord2 Baso ABS# 0.0 K/ul 01/21/2017 %Hba1C Pky802 % HbA1c 03130-1 5.7 % 01/21/2017 %Hba1C Ufv731 Gluc Ave 117 mg/dL 01/21/2017 SPTYPE 20141111 SP TYPE SERUM 04/29/2013 SPTYPE 20141111 HMLYSIS NO 04/29/2013 FREE T4 9704821 FREE T4 0.80 NG/DL 04/29/2013 CBC 0903329 WBC 7.5 10e9/L 04/29/2013 CBC [id number] RBC 3.50 10e12/L 04/29/2013 CBC 9965155 HGB 11.1 g/dL 04/29/2013 CBC 9438947 HCT DET 32.0 % 04/29/2013 CBC 9337599 MCV 91.4 fL 04/29/2013 CBC 3960200 MCH 31.7 pg 04/29/2013 CBC 6030124 MCHC 34.7 g/dL 04/29/2013 CBC 3659398 PLT 287 10e9/L 04/29/2013 CBC 2965306 MPV 9.1 fL 04/29/2013 CBC 3799913 OWEN % 83.4 % 04/29/2013 CBC 0101701 LY % 8.0 % 04/29/2013 CBC 2286701 MON % 6.0 % 04/29/2013 CBC 5107933 EOS % 2.3 % 04/29/2013 CBC 9911478 BASO % 0.3 % 04/29/2013 CBC 8830667 RDW 12.3 % 04/29/2013 CBC 8063314 ABS WOEN 6.26 10e9/L 04/29/2013 CBC 5377629 ABS LYMPH 0.60 10e9/L 04/29/2013 CBC 2299320 ABS MONO 0.45 10e9/L 04/29/2013 CBC 0717759 ABS EOS 0.17 10e9/L 04/29/2013 CBC 3207755 ABS BASO 0.02 10e9/L 04/29/2013 CBC 4005321 RDW-SD 39.8 fL 04/29/2013 TSH 0750911 TSH 95.308 uIU/ML 04/29/2013 GFR CALC 6976423 GFR AA 38.0L ML/MIN 04/29/2013 GFR CALC 0977562 GFR NON-AA 31.0L ML/MIN 04/29/2013 CHEM 14 8374377 AST 7 U/L 04/29/2013 CHEM 14 3357328 ALT 8 IU/L 04/29/2013 CHEM 14 2520373 BUN 50 MG/DL 04/29/2013 CHEM 14 0821476 ALBUMIN 3.6 GM/DL 04/29/2013 CHEM 14 6369032 CHLORIDE 88 MMOL/L 04/29/2013 CHEM 14 2997647 BILI TOT 0.3 MG/DL 04/29/2013 CHEM 14 8971581 ALK PHOS 118 U/L 04/29/2013 CHEM 14 5264639 SODIUM 126 MMOL/L 04/29/2013 CHEM 14 0560196 CREATININE 2.14 MG/DL 04/29/2013 CHEM 14 8212685 CALCIUM 9.5 MG/DL 04/29/2013 CHEM 14 4102738 POTASSIUM 5.6 MMOL/L 04/29/2013 CHEM 14 5870533 PROT TOT 6.6 GM/DL 04/29/2013 CHEM 14 4180644 GLUCOSE 578 MG/DL 04/29/2013 CHEM 14 6620738 BICARB 32 MMOL/L 04/29/2013 CHEM 14 9298174 ANION GAP 6 MEQ/L 04/29/2013 A1C HPLC 3195315 A1C HPLC 52509-6 11.8 % 11/26/2012 PEND CHEM PEND CHEM A1C HPLC 11/25/2012 TSH 2655325 TSH 27.831 uIU/ML 11/24/2012 FREE T4 3483975 FREE T4 1.00 NG/DL 11/24/2012 GFR CALC 5014834 GFR AA >60 ML/MIN 02/03/2012 GFR CALC 8486692 GFR NON-AA 54.0L ML/MIN 02/03/2012 CHEM 14 1917822 AST 15 U/L 02/03/2012 CHEM 14 0631964 ALT 12 IU/L 02/03/2012 CHEM 14 3554591 BUN 26 MG/DL 02/03/2012 CHEM 14 7348380 ALBUMIN 4.1 GM/DL 02/03/2012 CHEM 14 1875075 CHLORIDE 101 MMOL/L 02/03/2012 CHEM 14 8566701 BILI TOT 0.3 MG/DL 02/03/2012 CHEM 14 6088028 ALK PHOS 92 U/L 02/03/2012 CHEM 14 5589422 SODIUM 140 MMOL/L 02/03/2012 CHEM 14 0341867 CREATININE 1.34 MG/DL 02/03/2012 CHEM 14 1286785 CALCIUM 9.7 MG/DL 02/03/2012 CHEM 14 2796028 POTASSIUM 4.5 MMOL/L 02/03/2012 CHEM 14 2230945 PROT TOT 6.5 GM/DL 02/03/2012 CHEM 14 4772714 GLUCOSE 118 MG/DL 02/03/2012 CHEM 14 8377429 BICARB 30 MMOL/L 02/03/2012 CHEM 14 2367021 ANION GAP 9 MEQ/L 02/03/2012 TSH 1280821 TSH 23.984 uIU/ML 02/03/2012 FREE T4 4808619 FREE T4 1.03 NG/DL 02/03/2012 Review of Systems System Result Effective Dates Constitutional recent illness 01/29/2018 Constitutional No anorexia 01/29/2018 Constitutional No night sweats 2017 Constitutional No chills 01/29/2018 Constitutional No diaphoresis 01/29/2018 Constitutional fatigue 01/29/2018 Constitutional No fever 01/29/2018 Constitutional No insomnia 01/29/2018 Constitutional No malaise 01/29/2018 Constitutional No weight loss 01/29/2018 Constitutional No weight gain 01/29/2018 Eyes No eye erythema 01/29/2018 Eyes No eye discharge 01/29/2018 Ears/Nose/Throat/Neck dizziness 2017 Ears/Nose/Throat/Neck headache 2017 Cardiovascular No chest pain/pressure Cardiovascular No dyspnea 01/29/2018 Cardiovascular No edema 01/29/2018 Respiratory cough 01/29/2018 Respiratory productive sputum 01/29/2018 Gastrointestinal No vomiting 01/29/2018 Gastrointestinal No nausea 01/29/2018 Genitourinary/Nephrology No dysuria 01/29 Musculoskeletal joint complaint 2017 Dermatologic No rash 01/29/2018 Neurologic No alteration of consciousness 01/29/2018 Psychiatric No depression 01/29/2018 Psychiatric No anxiety 01/29/2018 Endocrine No sweating 01/29/2018 Endocrine No weakness 01/29/2018 Hematologic/Lymphatic No abnormal ecchymoses 01/29/2018 Constitutional recent illness 01/01/2018 Constitutional No anorexia 01/01/2018 Constitutional No night sweats 2017 Constitutional No chills 01/01/2018 Constitutional No diaphoresis 01/01/2018 Constitutional fatigue 01/01/2018 Constitutional No fever 01/01/2018 Constitutional No insomnia 01/01/2018 Constitutional malaise 01/01/2018 Eyes No eye pain 01/01/2018 Ears/Nose/Throat/Neck No dizziness 2017 Ears/Nose/Throat/Neck No headache 2017 Cardiovascular No chest pain/pressure Cardiovascular No dyspnea 01/01/2018 Cardiovascular No exercise intolerance Cardiovascular fatigue 01/01/2018 Cardiovascular hypertension 01/01/2018 Respiratory No chest congestion 2017 Respiratory No chest tightness 2017 Respiratory No cigarette smoking 2017 Respiratory No cough 01/01/2018 Gastrointestinal No abdominal pain 2017 Gastrointestinal No constipation 2017 Gastrointestinal No diarrhea 01/01/2018 Gastrointestinal gastroesophageal reflux 01/01/2018 Gastrointestinal No nausea 01/01/2018 Gastrointestinal No vomiting 01/01/2018 Genitourinary/Nephrology No anuria/oliguria 01/01/2018 Genitourinary/Nephrology No dysuria 01/01 Musculoskeletal stiffness 01/01/2018 Musculoskeletal arthralgia(s) 01/01/2018 Dermatologic No rash 01/01/2018 Dermatologic No sores 01/01/2018 Psychiatric No anxiety 01/01/2018 Psychiatric No depression 01/01/2018 Constitutional recent illness 12/01/2017 Constitutional No chills 12/01/2017 Constitutional No diaphoresis 12/01/2017 Constitutional fatigue 12/01/2017 Constitutional No fever 12/01/2017 Constitutional No insomnia 12/01/2017 Constitutional malaise 12/01/2017 Ears/Nose/Throat/Neck No dizziness 2017 Ears/Nose/Throat/Neck No headache 2017 Cardiovascular No chest pain/pressure Cardiovascular No dyspnea 12/01/2017 Cardiovascular No exercise intolerance Cardiovascular No fatigue 12/01/2017 Cardiovascular hypertension 12/01/2017 Respiratory No chest congestion 2017 Respiratory No chest tightness 2017 Respiratory No cigarette smoking 2017 Respiratory No cough 12/01/2017 Gastrointestinal No abdominal pain 2017 Gastrointestinal No constipation 2017 Gastrointestinal No diarrhea 12/01/2017 Gastrointestinal gastroesophageal reflux 12/01/2017 Gastrointestinal No nausea 12/01/2017 Gastrointestinal No vomiting 12/01/2017 Musculoskeletal stiffness 12/01/2017 Musculoskeletal swelling 12/01/2017 Musculoskeletal arthralgia(s) 12/01/2017 Musculoskeletal back pain 12/01/2017 Musculoskeletal joint complaint 2017 Dermatologic No rash 12/01/2017 Dermatologic No sores 12/01/2017 Psychiatric No anxiety 12/01/2017 Psychiatric No depression 12/01/2017 Genitourinary/Nephrology chronic renal failure 12/01/2017 Constitutional recent illness 11/17/2017 Constitutional No anorexia 11/17/2017 Constitutional No diaphoresis 11/17/2017 Constitutional No fatigue 11/17/2017 Constitutional No insomnia 11/17/2017 Constitutional No malaise 11/17/2017 Eyes No eye discharge 11/17/2017 Eyes No eye erythema 11/17/2017 Ears/Nose/Throat/Neck No dizziness 2017 Ears/Nose/Throat/Neck No headache 2017 Cardiovascular No chest pain/pressure 02/2017 Respiratory productive sputum 11/17/2017 Respiratory cough 11/17/2017 Gastrointestinal No abdominal pain 2017 Gastrointestinal No constipation 2017 Gastrointestinal No diarrhea 11/17/2017 Dermatologic No rash 11/17/2017 Neurologic No alteration of consciousness 11/17/2017 Constitutional No fever 11/17/2017 Constitutional recent illness 11/04/2017 Constitutional No anorexia 11/04/2017 Constitutional No night sweats 2017 Constitutional No chills 11/04/2017 Constitutional No diaphoresis 11/04/2017 Constitutional No fatigue 11/04/2017 Constitutional No fever 11/04/2017 Constitutional No insomnia 11/04/2017 Constitutional No malaise 11/04/2017 Constitutional No weight loss 11/04/2017 Constitutional No weight gain 11/04/2017 Eyes No eye discharge 11/04/2017 Eyes No eye erythema 11/04/2017 Ears/Nose/Throat/Neck No dizziness 2017 Ears/Nose/Throat/Neck No headache 2017 Cardiovascular No chest pain/pressure Respiratory cough 11/04/2017 Respiratory productive sputum 11/04/2017 Gastrointestinal No abdominal pain 2017 Gastrointestinal No constipation 2017 Gastrointestinal No diarrhea 11/04/2017 Genitourinary/Nephrology No dysuria 11/04 Musculoskeletal No joint complaint 2017 Dermatologic No rash 11/04/2017 Neurologic No alteration of consciousness 11/04/2017 Ears/Nose/Throat/Neck No dizziness 2017 Ears/Nose/Throat/Neck No headache 2017 Cardiovascular No chest pain/pressure 05/2017 Cardiovascular No dyspnea 10/21/2017 Cardiovascular No exercise intolerance Cardiovascular fatigue 10/21/2017 Cardiovascular hypertension 10/21/2017 Respiratory No chest congestion 2017 Respiratory No chest tightness 2017 Respiratory No cigarette smoking 2017 Respiratory cough 10/21/2017 Gastrointestinal No abdominal pain 2017 Gastrointestinal No constipation 2017 Gastrointestinal No diarrhea 10/21/2017 Gastrointestinal gastroesophageal reflux 10/21/2017 Gastrointestinal No nausea 10/21/2017 Gastrointestinal No vomiting 10/21/2017 Genitourinary/Nephrology No anuria/oliguria 10/21/2017 Genitourinary/Nephrology No dysuria 10/21 Musculoskeletal stiffness 10/21/2017 Musculoskeletal swelling 10/21/2017 Musculoskeletal arthralgia(s) 10/21/2017 Musculoskeletal back pain 10/21/2017 Musculoskeletal joint complaint 2017 Dermatologic No rash 10/21/2017 Dermatologic No sores 10/21/2017 Neurologic No alteration of consciousness 10/21/2017 Psychiatric No anxiety 10/21/2017 Psychiatric No depression 10/21/2017 Constitutional recent illness 10/21/2017 Constitutional No chills 10/21/2017 Constitutional No diaphoresis 10/21/2017 Constitutional fatigue 10/21/2017 Constitutional No fever 10/21/2017 Eyes No eye erythema 10/21/2017 Neurologic No mental status change 2017 Constitutional No recent illness 2017 Constitutional No anorexia 08/07/2017 Constitutional No night sweats 2017 Constitutional No chills 08/07/2017 Constitutional No diaphoresis 08/07/2017 Constitutional fatigue 08/07/2017 Constitutional No fever 08/07/2017 Constitutional No insomnia 08/07/2017 Constitutional malaise 08/07/2017 Constitutional No weight gain 08/07/2017 Constitutional No obesity 08/07/2017 Eyes No eye pain 08/07/2017 Ears/Nose/Throat/Neck No dizziness 2017 Ears/Nose/Throat/Neck No headache 2017 Cardiovascular No chest pain/pressure Cardiovascular No dyspnea 08/07/2017 Cardiovascular No exercise intolerance Cardiovascular fatigue 08/07/2017 Respiratory No chest congestion 2017 Respiratory No chest tightness 2017 Respiratory No cigarette smoking 2017 Respiratory No cough 08/07/2017 Gastrointestinal No abdominal pain 2017 Gastrointestinal No constipation 2017 Gastrointestinal No diarrhea 08/07/2017 Gastrointestinal No nausea 08/07/2017 Gastrointestinal No vomiting 08/07/2017 Genitourinary/Nephrology No anuria/oliguria 08/07/2017 Genitourinary/Nephrology No dysuria 08/07 Musculoskeletal stiffness 08/07/2017 Musculoskeletal swelling 08/07/2017 Musculoskeletal arthralgia(s) 08/07/2017 Musculoskeletal back pain 08/07/2017 Musculoskeletal joint complaint 2017 Dermatologic No rash 08/07/2017 Dermatologic No sores 08/07/2017 Neurologic No alteration of consciousness 08/07/2017 Neurologic No headache 08/07/2017 Psychiatric No anxiety 08/07/2017 Psychiatric No depression 08/07/2017 Endocrine No polydipsia 08/07/2017 Endocrine No polyuria 08/07/2017 Gastrointestinal gastroesophageal reflux 08/07/2017 Cardiovascular hypertension 08/07/2017 Constitutional No recent illness 2017 Constitutional No anorexia 07/25/2017 Constitutional No night sweats 2017 Constitutional No chills 07/25/2017 Constitutional No diaphoresis 07/25/2017 Constitutional fatigue 07/25/2017 Constitutional No fever 07/25/2017 Constitutional No insomnia 07/25/2017 Constitutional malaise 07/25/2017 Constitutional No weight gain 07/25/2017 Constitutional No obesity 07/25/2017 Eyes No eye pain 07/25/2017 Ears/Nose/Throat/Neck No dizziness 2017 Ears/Nose/Throat/Neck No headache 2017 Cardiovascular No chest pain/pressure 09/2017 Cardiovascular No dyspnea 07/25/2017 Cardiovascular No exercise intolerance Cardiovascular fatigue 07/25/2017 Respiratory No chest congestion 2017 Respiratory No chest tightness 2017 Respiratory No cigarette smoking 2017 Respiratory No cough 07/25/2017 Gastrointestinal No abdominal pain 2017 Gastrointestinal constipation 07/25/2017 Gastrointestinal No diarrhea 07/25/2017 Gastrointestinal No nausea 07/25/2017 Gastrointestinal No vomiting 07/25/2017 Genitourinary/Nephrology No anuria/oliguria 07/25/2017 Genitourinary/Nephrology No dysuria 07/25 Musculoskeletal stiffness 07/25/2017 Musculoskeletal swelling 07/25/2017 Musculoskeletal arthralgia(s) 07/25/2017 Musculoskeletal back pain 07/25/2017 Dermatologic No rash 07/25/2017 Dermatologic No sores 07/25/2017 Neurologic No alteration of consciousness 07/25/2017 Neurologic No headache 07/25/2017 Psychiatric No anxiety 07/25/2017 Psychiatric No depression 07/25/2017 Endocrine No polydipsia 07/25/2017 Endocrine No polyuria 07/25/2017 Musculoskeletal joint complaint 2017 Constitutional No recent illness 2017 Constitutional No chills 06/25/2017 Constitutional No diaphoresis 06/25/2017 Constitutional No fatigue 06/25/2017 Eyes No eye erythema 06/25/2017 Ears/Nose/Throat/Neck No nasal discharge 06/25/2017 Cardiovascular No chest pain/pressure 10/2017 Respiratory No cough 06/25/2017 Gastrointestinal No abdominal pain 2017 Dermatologic No rash 06/25/2017 Neurologic No alteration of consciousness 06/25/2017 Endocrine diabetes mellitus type 2 2017 Constitutional No recent illness 2017 Constitutional No anorexia 06/06/2017 Constitutional No night sweats 2017 Constitutional No chills 06/06/2017 Constitutional No diaphoresis 06/06/2017 Constitutional fatigue 06/06/2017 Constitutional No fever 06/06/2017 Constitutional No insomnia 06/06/2017 Constitutional No weight gain 06/06/2017 Constitutional No obesity 06/06/2017 Eyes No eye pain 06/06/2017 Ears/Nose/Throat/Neck No dizziness 2017 Ears/Nose/Throat/Neck No headache 2017 Cardiovascular No chest pain/pressure Cardiovascular No dyspnea 06/06/2017 Cardiovascular No exercise intolerance Cardiovascular fatigue 06/06/2017 Respiratory No chest congestion 2017 Respiratory No chest tightness 2017 Respiratory No cigarette smoking 2017 Respiratory No cough 06/06/2017 Gastrointestinal No abdominal pain 2017 Gastrointestinal No constipation 2017 Gastrointestinal No diarrhea 06/06/2017 Gastrointestinal No nausea 06/06/2017 Gastrointestinal No vomiting 06/06/2017 Genitourinary/Nephrology No anuria/oliguria 06/06/2017 Genitourinary/Nephrology No dysuria 06/06 Musculoskeletal stiffness 06/06/2017 Dermatologic No rash 06/06/2017 Dermatologic No sores 06/06/2017 Neurologic No alteration of consciousness 06/06/2017 Neurologic No headache 06/06/2017 Psychiatric No anxiety 06/06/2017 Psychiatric No depression 06/06/2017 Endocrine No polydipsia 06/06/2017 Endocrine No polyuria 06/06/2017 Musculoskeletal back pain 06/06/2017 Musculoskeletal joint complaint 2017 Constitutional No recent illness 2017 Constitutional No anorexia 05/01/2017 Constitutional No night sweats 2017 Constitutional No chills 05/01/2017 Constitutional No diaphoresis 05/01/2017 Constitutional fatigue 05/01/2017 Constitutional No fever 05/01/2017 Constitutional No insomnia 05/01/2017 Constitutional No weight gain 05/01/2017 Constitutional No obesity 05/01/2017 Eyes No eye pain 05/01/2017 Ears/Nose/Throat/Neck No dizziness 2017 Ears/Nose/Throat/Neck No headache 2017 Cardiovascular No chest pain/pressure Cardiovascular No dyspnea 05/01/2017 Cardiovascular No exercise intolerance Cardiovascular fatigue 05/01/2017 Respiratory No chest congestion 2017 Respiratory No chest tightness 2017 Respiratory No cigarette smoking 2017 Respiratory No cough 05/01/2017 Gastrointestinal No abdominal pain 2017 Gastrointestinal No constipation 2017 Gastrointestinal No diarrhea 05/01/2017 Gastrointestinal No nausea 05/01/2017 Gastrointestinal No vomiting 05/01/2017 Genitourinary/Nephrology No anuria/oliguria 05/01/2017 Genitourinary/Nephrology No dysuria 05/01 Musculoskeletal stiffness 05/01/2017 Dermatologic No rash 05/01/2017 Dermatologic No sores 05/01/2017 Neurologic No alteration of consciousness 05/01/2017 Neurologic No headache 05/01/2017 Psychiatric No anxiety 05/01/2017 Psychiatric No depression 05/01/2017 Endocrine No polydipsia 05/01/2017 Endocrine No polyuria 05/01/2017 Constitutional No recent illness 2016 Constitutional No [...] 1994 Constitutional general appearance Overall: well developed 01/29/2018 None Full Exam - General 1994 Constitutional general appearance Overall: in no acute distress 01/29/2018 None Full Exam - General 1994 Constitutional general appearance Overall: well nourished 01/29/2018 None Full Exam - General 1994 Constitutional general appearance Nourishment: thin 01/29/2018 None Full Exam - General 1994 Constitutional general appearance Hygiene/Attention to Grooming: poor hygiene 01/29/2018 flakey, greasy appearing hair Full Exam - General 1994 Eyes pupils and irises Overall: pupils equal, round, reactive to light and accomodation 01/29/2018 None Full Exam - General 1994 Ears/Nose/Throat otoscopic exam Overall: external auditory canals clear 01/29/2018 None Full Exam - General 1994 Ears/Nose/Throat otoscopic exam Overall: tympanic membranes clear 01/29/2018 None Full Exam - General 1994 Ears/Nose/Throat oral cavity/pharynx/larynx Overall: oral mucosa clear 01/29/2018 None Full Exam - General 1994 Ears/Nose/Throat oral cavity/pharynx/larynx Overall: oropharyngeal mucosa clear 01/29/2018 None Full Exam - General 1994 Ears/Nose/Throat oral cavity/pharynx/larynx Overall: no masses 01/29/2018 None Full Exam - General 1994 Respiratory auscultation Overall: breath sounds clear bilaterally 01/29/2018 None Full Exam - General 1994 Respiratory respiratory effort/rhythm Overall: no retractions 01/29/2018 None Full Exam - General 1994 Respiratory respiratory effort/rhythm Overall: normal rate 01/29/2018 None Full Exam - General 1994 Cardiovascular auscultation of heart Overall: regular rate 01/29/2018 None Full Exam - General 1994 Cardiovascular auscultation of heart Overall: normal heart sounds 01/29/2018 None Full Exam - General 1994 Cardiovascular auscultation of heart Overall: no murmurs 01/29/2018 None Full Exam - General 1994 Abdomen abdominal exam Overall: no tenderness 01/29/2018 None Full Exam - General 1994 Abdomen abdominal exam Contour: rounded 01/29/2018 None Full Exam - General 1994 Musculoskeletal digits and nails Overall: no clubbing 01/29/2018 None Full Exam - General 1994 Musculoskeletal digits and nails Overall: digits benign 01/29/2018 None Full Exam - General 1994 Musculoskeletal spine, ribs and pelvis Overall: ribs benign 01/29/2018 None Full Exam - General 1994 Musculoskeletal spine, ribs and pelvis Posture: lordosis 01/29/2018 None Full Exam - General 1994 Musculoskeletal head and neck Overall: head atraumatic 01/29/2018 None Full Exam - General 1994 Musculoskeletal head and neck Overall: cervical spine benign 01/29/2018 None Full Exam - General 1994 Integument inspection of skin Overall: few scattered moles, no gross abnormalities 01/29/2018 pale Full Exam - General 1994 Neurologic gait Overall: no ataxia, no unsteadiness 01/29/2018 None Full Exam - General 1994 Psychiatric orientation/consciousness Overall: oriented to person, place and time 01/29/2018 None Full Exam - General 1994 Psychiatric mood and affect Overall: normal mood and affect 01/29/2018 None Full Exam - General 1994 Psychiatric mood and affect Mood: happy 01/29/2018 None Full Exam - Cardiology Respiratory auscultation Left lower lung field: crackles 01/29/2018 None Full Exam - Cardiology Respiratory auscultation Diffuse: expiratory wheezes 01/29/2018 None Full Exam - General 1994 Constitutional general appearance Development: well developed 01/01/2018 None Full Exam - General 1994 Constitutional general appearance Development: appears stated age 1101/01/2018 None Full Exam - General 1994 Constitutional general appearance Hygiene/Attention to Grooming: poor hygiene 01/01/2018 greasy hair Full Exam - General 1994 Eyes conjunctiva /eyelids Overall: conjunctiva clear 01/01/2018 None Full Exam - General 1994 Eyes conjunctiva /eyelids Overall: cornea clear 01/01/2018 None Full Exam - General 1994 Eyes conjunctiva /eyelids Overall: eyelids normal 01/01/2018 None Full Exam - General 1994 Eyes pupils and irises Overall: pupils equal, round, reactive to light and accomodation 01/01/2018 None Full Exam - General 1994 Ears/Nose/Throat external ear Overall: normal appearance 01/01/2018 None Full Exam - General 1994 Ears/Nose/Throat external ear Overall: no masses 01/01/2018 None Full Exam - General 1994 Ears/Nose/Throat otoscopic exam Overall: external auditory canals clear 01/01/2018 None Full Exam - General 1994 Ears/Nose/Throat otoscopic exam Overall: tympanic membranes clear 01/01/2018 None Full Exam - General 1994 Ears/Nose/Throat lips/teeth/gingiva Overall: benign lips 01/01/2018 None Full Exam - General 1994 Ears/Nose/Throat lips/teeth/gingiva Teeth: missing teeth 01/01/2018 None Full Exam - General 1994 Ears/Nose/Throat oral cavity/pharynx/larynx Overall: oral mucosa clear 01/01/2018 None Full Exam - General 1994 Respiratory auscultation Overall: breath sounds clear bilaterally 01/01/2018 None Full Exam - General 1994 Respiratory respiratory effort/rhythm Overall: no retractions 01/01/2018 None Full Exam - General 1994 Respiratory respiratory effort/rhythm Overall: normal rate 01/01/2018 None Full Exam - General 1994 Cardiovascular auscultation of heart Overall: regular rate 01/01/2018 None Full Exam - General 1994 Cardiovascular auscultation of heart Overall: normal heart sounds 01/01/2018 None Full Exam - General 1994 Abdomen abdominal exam Overall: no tenderness 01/01/2018 None Full Exam - General 1994 Abdomen abdominal exam Overall: normal bowel sounds 01/01/2018 None Full Exam - General 1994 Abdomen abdominal exam Contour: rounded 01/01/2018 None Full Exam - General 1994 Abdomen abdominal exam Bowel sounds: hypoactive 01/01/2018 None Full Exam - General 1994 Lymphatic neck nodes Overall: anterior cervical chain benign 01/01/2018 None Full Exam - General 1994 Lymphatic neck nodes Overall: posterior cervical chain benign 01/01/2018 None Full Exam - General 1994 Musculoskeletal gait and station Overall: normal gait 01/01/2018 None Full Exam - General 1994 Musculoskeletal gait and station Overall: normal station 01/01/2018 None Full Exam - General 1994 Psychiatric orientation/consciousness Overall: oriented to person, place and time 01/01/2018 None Full Exam - General 1994 Constitutional general appearance Development: well developed 12/01/2017 None Full Exam - General 1994 Constitutional general appearance Development: appears stated age 1012/01/2017 None Full Exam - General 1994 Constitutional general appearance Hygiene/Attention to Grooming: poor hygiene 12/01/2017 greasy hair Full Exam - General 1994 Eyes conjunctiva /eyelids Overall: conjunctiva clear 12/01/2017 None Full Exam - General 1994 Eyes conjunctiva /eyelids Overall: cornea clear 12/01/2017 None Full Exam - General 1994 Eyes conjunctiva /eyelids Overall: eyelids normal 12/01/2017 None Full Exam - General 1994 Eyes pupils and irises Overall: pupils equal, round, reactive to light and accomodation 12/01/2017 None Full Exam - General 1994 Ears/Nose/Throat lips/teeth/gingiva Overall: benign lips 12/01/2017 None Full Exam - General 1994 Ears/Nose/Throat lips/teeth/gingiva Teeth: missing teeth 12/01/2017 None Full Exam - General 1994 Ears/Nose/Throat oral cavity/pharynx/larynx Overall: oral mucosa clear 12/01/2017 None Full Exam - General 1994 Respiratory auscultation Overall: breath sounds clear bilaterally 12/01/2017 None Full Exam - General 1994 Respiratory respiratory effort/rhythm Overall: no retractions 12/01/2017 None Full Exam - General 1994 Respiratory respiratory effort/rhythm Overall: normal rate 12/01/2017 None Full Exam - General 1994 Cardiovascular auscultation of heart Overall: regular rate 12/01/2017 None Full Exam - General 1994 Cardiovascular auscultation of heart Overall: normal heart sounds 12/01/2017 None Full Exam - General 1994 Musculoskeletal gait and station Overall: normal gait 12/01/2017 None Full Exam - General 1994 Musculoskeletal gait and station Overall: normal station 12/01/2017 None Full Exam - General 1994 Psychiatric orientation/consciousness Overall: oriented to person, place and time 12/01/2017 None Full Exam - General 1994 Constitutional general appearance Evidence of Distress: in no acute distress 12/01/2017 None Full Exam - General 1994 Constitutional general appearance Overall: well developed 11/17/2017 None Full Exam - General 1994 Constitutional general appearance Overall: in no acute distress 11/17/2017 None Full Exam - General 1994 Constitutional general appearance Overall: well nourished 11/17/2017 None Full Exam - General 1994 Constitutional general appearance Nourishment: thin 11/17/2017 ill appearing Full Exam - General 1994 Eyes pupils and irises Overall: pupils equal, round, reactive to light and accomodation 11/17/2017 None Full Exam - General 1994 Ears/Nose/Throat otoscopic exam Overall: external auditory canals clear 11/17/2017 None Full Exam - General 1994 Ears/Nose/Throat otoscopic exam Overall: tympanic membranes clear 11/17/2017 None Full Exam - General 1994 Ears/Nose/Throat oral cavity/pharynx/larynx Overall: oral mucosa clear 11/17/2017 None Full Exam - General 1994 Ears/Nose/Throat oral cavity/pharynx/larynx Overall: oropharyngeal mucosa clear 11/17/2017 None Full Exam - General 1994 Ears/Nose/Throat oral cavity/pharynx/larynx Overall: no masses 11/17/2017 None Full Exam - General 1994 Respiratory auscultation Overall: breath sounds clear bilaterally 11/17/2017 None Full Exam - General 1994 Respiratory respiratory effort/rhythm Overall: no retractions 11/17/2017 None Full Exam - General 1994 Respiratory respiratory effort/rhythm Overall: normal rate 11/17/2017 None Full Exam - General 1994 Cardiovascular auscultation of heart Overall: regular rate 11/17/2017 None Full Exam - General 1994 Cardiovascular auscultation of heart Overall: normal heart sounds 11/17/2017 None Full Exam - General 1994 Cardiovascular auscultation of heart Overall: no murmurs 11/17/2017 None Full Exam - General 1994 Abdomen abdominal exam Overall: no tenderness 11/17/2017 None Full Exam - General 1994 Abdomen abdominal exam Contour: rounded 11/17/2017 None Full Exam - General 1994 Musculoskeletal digits and nails Overall: no clubbing 11/17/2017 None Full Exam - General 1994 Musculoskeletal digits and nails Overall: digits benign 11/17/2017 None Full Exam - General 1994 Musculoskeletal spine, ribs and pelvis Overall: ribs benign 11/17/2017 None Full Exam - General 1994 Musculoskeletal spine, ribs and pelvis Posture: lordosis 11/17/2017 None Full Exam - General 1994 Musculoskeletal head and neck Overall: head atraumatic 11/17/2017 None Full Exam - General 1994 Musculoskeletal head and neck Overall: cervical spine benign 11/17/2017 None Full Exam - General 1994 Psychiatric orientation/consciousness Overall: oriented to person, place and time 11/17/2017 None Full Exam - General 1994 Psychiatric mood and affect Overall: normal mood and affect 11/17/2017 None Full Exam - General 1994 Psychiatric mood and affect Mood: happy 11/17/2017 None Full Exam - General 1994 Constitutional general appearance Overall: well developed 11/04/2017 None Full Exam - General 1994 Constitutional general appearance Overall: in no acute distress 11/04/2017 None Full Exam - General 1994 Constitutional general appearance Overall: well nourished 11/04/2017 None Full Exam - General 1994 Constitutional general appearance Nourishment: thin 11/04/2017 ill appearing Full Exam - General 1994 Constitutional general appearance Hygiene/Attention to Grooming: poor hygiene 11/04/2017 flakey, greasy appearing hair Full Exam - General 1994 Eyes pupils and irises Overall: pupils equal, round, reactive to light and accomodation 11/04/2017 None Full Exam - General 1994 Ears/Nose/Throat otoscopic exam Overall: external auditory canals clear 11/04/2017 None Full Exam - General 1994 Ears/Nose/Throat otoscopic exam Overall: tympanic membranes clear 11/04/2017 None Full Exam - General 1994 Ears/Nose/Throat oral cavity/pharynx/larynx Overall: oral mucosa clear 11/04/2017 None Full Exam - General 1994 Ears/Nose/Throat oral cavity/pharynx/larynx Overall: oropharyngeal mucosa clear 11/04/2017 None Full Exam - General 1994 Ears/Nose/Throat oral cavity/pharynx/larynx Overall: no masses 11/04/2017 None Full Exam - General 1994 Respiratory auscultation Overall: breath sounds clear bilaterally 11/04/2017 None Full Exam - General 1994 Respiratory auscultation Basilar: diminished 11/04/2017 None Full Exam - General 1994 Respiratory respiratory effort/rhythm Overall: no retractions 11/04/2017 None Full Exam - General 1994 Respiratory respiratory effort/rhythm Overall: normal rate 11/04/2017 None Full Exam - General 1994 Cardiovascular auscultation of heart Overall: regular rate 11/04/2017 None Full Exam - General 1994 Cardiovascular auscultation of heart Overall: normal heart sounds 11/04/2017 None Full Exam - General 1994 Cardiovascular auscultation of heart Overall: no murmurs 11/04/2017 None Full Exam - General 1994 Abdomen abdominal exam Overall: no tenderness 11/04/2017 None Full Exam - General 1994 Abdomen abdominal exam Contour: rounded 11/04/2017 None Full Exam - General 1994 Musculoskeletal digits and nails Overall: no clubbing 11/04/2017 None Full Exam - General 1994 Musculoskeletal digits and nails Overall: digits benign 11/04/2017 None Full Exam - General 1994 Musculoskeletal spine, ribs and pelvis Overall: ribs benign 11/04/2017 None Full Exam - General 1994 Musculoskeletal spine, ribs and pelvis Posture: lordosis 11/04/2017 None Full Exam - General 1994 Musculoskeletal head and neck Overall: head atraumatic 11/04/2017 None Full Exam - General 1994 Musculoskeletal head and neck Overall: cervical spine benign 11/04/2017 None Full Exam - General 1994 Integument inspection of skin Overall: few scattered moles, no gross abnormalities 11/04/2017 pale Full Exam - General 1994 Neurologic gait Overall: no ataxia, no unsteadiness 11/04/2017 None Full Exam - General 1994 Psychiatric orientation/consciousness Overall: oriented to person, place and time 11/04/2017 None Full Exam - General 1994 Psychiatric mood and affect Overall: normal mood and affect 11/04/2017 None Full Exam - General 1994 Psychiatric mood and affect Mood: happy 11/04/2017 None Full Exam - General 1994 Constitutional general appearance Development: well developed 10/21/2017 None Full Exam - General 1994 Constitutional general appearance Development: appears stated age 0910/21/2017 None Full Exam - General 1994 Constitutional general appearance Hygiene/Attention to Grooming: poor hygiene 10/21/2017 greasy hair Full Exam - General 1994 Eyes conjunctiva /eyelids Overall: conjunctiva clear 10/21/2017 None Full Exam - General 1994 Eyes conjunctiva /eyelids Overall: cornea clear 10/21/2017 None Full Exam - General 1994 Eyes conjunctiva /eyelids Overall: eyelids normal 10/21/2017 None Full Exam - General 1994 Eyes pupils and irises Overall: pupils equal, round, reactive to light and accomodation 10/21/2017 None Full Exam - General 1994 Ears/Nose/Throat lips/teeth/gingiva Overall: benign lips 10/21/2017 None Full Exam - General 1994 Ears/Nose/Throat lips/teeth/gingiva Teeth: missing teeth 10/21/2017 None Full Exam - General 1994 Ears/Nose/Throat oral cavity/pharynx/larynx Overall: oral mucosa clear 10/21/2017 None Full Exam - General 1994 Respiratory respiratory effort/rhythm Overall: no retractions 10/21/2017 None Full Exam - General 1994 Respiratory respiratory effort/rhythm Overall: normal rate 10/21/2017 None Full Exam - General 1994 Cardiovascular auscultation of heart Overall: regular rate 10/21/2017 None Full Exam - General 1994 Cardiovascular auscultation of heart Overall: normal heart sounds 10/21/2017 None Full Exam - General 1994 Abdomen abdominal exam Overall: no tenderness 10/21/2017 None Full Exam - General 1994 Abdomen abdominal exam Overall: normal bowel sounds 10/21/2017 None Full Exam - General 1994 Abdomen abdominal exam Contour: rounded 10/21/2017 None Full Exam - General 1994 Musculoskeletal gait and station Overall: normal gait 10/21/2017 None Full Exam - General 1994 Musculoskeletal gait and station Overall: normal station 10/21/2017 None Full Exam - General 1994 Psychiatric orientation/consciousness Overall: oriented to person, place and time 10/21/2017 None Full Exam - General 1994 Ears/Nose/Throat otoscopic exam Overall: tympanic membranes clear 10/21/2017 None Full Exam - General 1994 Ears/Nose/Throat otoscopic exam Overall: external auditory canals clear 10/21/2017 None Full Exam - General 1994 Respiratory auscultation Diffuse: diminished 10/21/2017 None Full Exam - General 1994 Musculoskeletal head and neck Overall: head atraumatic 10/21/2017 None Full Exam - General 1994 Psychiatric mood and affect Overall: normal mood and affect 10/21/2017 None Full Exam - General 1994 Neurologic cranial nerves Overall: crainial nerves 2 - 12 grossly intact 10/21/2017 None Full Exam - General 1994 Constitutional general appearance Development: well developed 08/07/2017 None Full Exam - General 1994 Constitutional general appearance Development: appears stated age 0608/07/2017 None Full Exam - General 1994 Constitutional general appearance Hygiene/Attention to Grooming: poor hygiene 08/07/2017 greasy hair Full Exam - General 1994 Eyes conjunctiva /eyelids Overall: conjunctiva clear 08/07/2017 None Full Exam - General 1994 Eyes conjunctiva /eyelids Overall: cornea clear 08/07/2017 None Full Exam - General 1994 Eyes conjunctiva /eyelids Overall: eyelids normal 08/07/2017 None Full Exam - General 1994 Eyes pupils and irises Overall: pupils equal, round, reactive to light and accomodation 08/07/2017 None Full Exam - General 1994 Ears/Nose/Throat external ear Overall: normal appearance 08/07/2017 None Full Exam - General 1994 Ears/Nose/Throat external ear Overall: no masses 08/07/2017 None Full Exam - General 1994 Ears/Nose/Throat otoscopic exam Overall: external auditory canals clear 08/07/2017 None Full Exam - General 1994 Ears/Nose/Throat otoscopic exam Overall: tympanic membranes clear 08/07/2017 None Full Exam - General 1994 Ears/Nose/Throat lips/teeth/gingiva Overall: benign lips 08/07/2017 None Full Exam - General 1994 Ears/Nose/Throat lips/teeth/gingiva Teeth: missing teeth 08/07/2017 None Full Exam - General 1994 Ears/Nose/Throat oral cavity/pharynx/larynx Overall: oral mucosa clear 08/07/2017 None Full Exam - General 1994 Respiratory auscultation Overall: breath sounds clear bilaterally 08/07/2017 None Full Exam - General 1994 Respiratory respiratory effort/rhythm Overall: no retractions 08/07/2017 None Full Exam - General 1994 Respiratory respiratory effort/rhythm Overall: normal rate 08/07/2017 None Full Exam - General 1994 Cardiovascular auscultation of heart Overall: regular rate 08/07/2017 None Full Exam - General 1994 Cardiovascular auscultation of heart Overall: normal heart sounds 08/07/2017 None Full Exam - General 1994 Abdomen abdominal exam Overall: no tenderness 08/07/2017 None Full Exam - General 1994 Abdomen abdominal exam Overall: normal bowel sounds 08/07/2017 None Full Exam - General 1994 Abdomen abdominal exam Contour: rounded 08/07/2017 None Full Exam - General 1994 Abdomen abdominal exam Bowel sounds: hypoactive 08/07/2017 None Full Exam - General 1994 Lymphatic neck nodes Overall: anterior cervical chain benign 08/07/2017 None Full Exam - General 1994 Lymphatic neck nodes Overall: posterior cervical chain benign 08/07/2017 None Full Exam - General 1994 Musculoskeletal gait and station Overall: normal gait 08/07/2017 None Full Exam - General 1994 Musculoskeletal gait and station Overall: normal station 08/07/2017 None Full Exam - General 1994 Psychiatric orientation/consciousness Overall: oriented to person, place and time 08/07/2017 None Full Exam - General 1994 Constitutional general appearance Development: well developed 07/25/2017 None Full Exam - General 1994 Constitutional general appearance Development: appears stated age 0607/25/2017 None Full Exam - General 1994 Constitutional general appearance Hygiene/Attention to Grooming: poor hygiene 07/25/2017 greasy hair Full Exam - General 1994 Eyes conjunctiva /eyelids Overall: conjunctiva clear 07/25/2017 None Full Exam - General 1994 Eyes conjunctiva /eyelids Overall: cornea clear 07/25/2017 None Full Exam - General 1994 Eyes conjunctiva /eyelids Overall: eyelids normal 07/25/2017 None Full Exam - General 1994 Eyes pupils and irises Overall: pupils equal, round, reactive to light and accomodation 07/25/2017 None Full Exam - General 1994 Ears/Nose/Throat external ear Overall: normal appearance 07/25/2017 None Full Exam - General 1994 Ears/Nose/Throat external ear Overall: no masses 07/25/2017 None Full Exam - General 1994 Ears/Nose/Throat otoscopic exam Overall: external auditory canals clear 07/25/2017 None Full Exam - General 1994 Ears/Nose/Throat otoscopic exam Overall: tympanic membranes clear 07/25/2017 None Full Exam - General 1994 Ears/Nose/Throat lips/teeth/gingiva Overall: benign lips 07/25/2017 None Full Exam - General 1994 Ears/Nose/Throat lips/teeth/gingiva Teeth: missing teeth 07/25/2017 None Full Exam - General 1994 Ears/Nose/Throat oral cavity/pharynx/larynx Overall: oral mucosa clear 07/25/2017 None Full Exam - General 1994 Neck inspection of neck Appearance: surgical scarring 07/25/2017 healing surgical incision Full Exam - General 1994 Respiratory auscultation Overall: breath sounds clear bilaterally 07/25/2017 None Full Exam - General 1994 Respiratory respiratory effort/rhythm Overall: no retractions 07/25/2017 None Full Exam - General 1994 Respiratory respiratory effort/rhythm Overall: normal rate 07/25/2017 None Full Exam - General 1994 Cardiovascular auscultation of heart Overall: regular rate 07/25/2017 None Full Exam - General 1994 Cardiovascular auscultation of heart Overall: normal heart sounds 07/25/2017 None Full Exam - General 1994 Abdomen abdominal exam Overall: no tenderness 07/25/2017 None Full Exam - General 1994 Abdomen abdominal exam Overall: normal bowel sounds 07/25/2017 None Full Exam - General 1994 Abdomen abdominal exam Contour: rounded 07/25/2017 None Full Exam - General 1994 Abdomen abdominal exam Bowel sounds: hypoactive 07/25/2017 None Full Exam - General 1994 Lymphatic neck nodes Overall: anterior cervical chain benign 07/25/2017 None Full Exam - General 1994 Lymphatic neck nodes Overall: posterior cervical chain benign 07/25/2017 None Full Exam - General 1994 Musculoskeletal gait and station Overall: normal gait 07/25/2017 None Full Exam - General 1994 Musculoskeletal gait and station Overall: normal station 07/25/2017 None Full Exam - General 1994 Psychiatric orientation/consciousness Overall: oriented to person, place and time 07/25/2017 None Full Exam - General 1994 Constitutional general appearance Overall: well developed 06/25/2017 None Full Exam - General 1994 Constitutional general appearance Overall: in no acute distress 06/25/2017 None Full Exam - General 1994 Constitutional general appearance Overall: well nourished 06/25/2017 None Full Exam - General 1994 Eyes conjunctiva /eyelids Overall: conjunctiva clear 06/25/2017 None Full Exam - General 1994 Eyes conjunctiva /eyelids Overall: cornea clear 06/25/2017 None Full Exam - General 1994 Eyes conjunctiva /eyelids Overall: eyelids normal 06/25/2017 None Full Exam - General 1994 Ears/Nose/Throat lips/teeth/gingiva Overall: benign lips 06/25/2017 None Full Exam - General 1994 Respiratory respiratory effort/rhythm Overall: no retractions 06/25/2017 None Full Exam - General 1994 Respiratory respiratory effort/rhythm Overall: normal rate 06/25/2017 None Full Exam - General 1994 Musculoskeletal head and neck Overall: head atraumatic 06/25/2017 None Full Exam - General 1994 Neurologic cranial nerves Overall: crainial nerves 2 - 12 grossly intact 06/25/2017 None Full Exam - General 1994 Psychiatric orientation/consciousness Overall: oriented to person, place and time 06/25/2017 None Full Exam - General 1994 Psychiatric mood and affect Overall: normal mood and affect 06/25/2017 None Full Exam - General 1994 Psychiatric appearance Overall: well-groomed, good eye contact 06/25/2017 None Full Exam - General 1994 Constitutional general appearance Development: well developed 06/06/2017 None Full Exam - General 1994 Constitutional general appearance Development: appears stated age 0406/06/2017 None Full Exam - General 1994 Constitutional general appearance Hygiene/Attention to Grooming: poor hygiene 06/06/2017 greasy hair Full Exam - General 1994 Eyes conjunctiva /eyelids Overall: conjunctiva clear 06/06/2017 None Full Exam - General 1994 Eyes conjunctiva /eyelids Overall: cornea clear 06/06/2017 None Full Exam - General 1994 Eyes conjunctiva /eyelids Overall: eyelids normal 06/06/2017 None Full Exam - General 1994 Eyes pupils and irises Overall: pupils equal, round, reactive to light and accomodation 06/06/2017 None Full Exam - General 1994 Ears/Nose/Throat external ear Overall: normal appearance 06/06/2017 None Full Exam - General 1994 Ears/Nose/Throat external ear Overall: no masses 06/06/2017 None Full Exam - General 1994 Ears/Nose/Throat otoscopic exam Overall: external auditory canals clear 06/06/2017 None Full Exam - General 1994 Ears/Nose/Throat otoscopic exam Overall: tympanic membranes clear 06/06/2017 None Full Exam - General 1994 Ears/Nose/Throat lips/teeth/gingiva Overall: benign lips 06/06/2017 None Full Exam - General 1994 Ears/Nose/Throat lips/teeth/gingiva Teeth: missing teeth 06/06/2017 None Full Exam - General 1994 Ears/Nose/Throat oral cavity/pharynx/larynx Overall: oral mucosa clear 06/06/2017 None Full Exam - General 1994 Respiratory auscultation Overall: breath sounds clear bilaterally 06/06/2017 None Full Exam - General 1994 Respiratory respiratory effort/rhythm Overall: no retractions 06/06/2017 None Full Exam - General 1994 Respiratory respiratory effort/rhythm Overall: normal rate 06/06/2017 None Full Exam - General 1994 Cardiovascular auscultation of heart Overall: regular rate 06/06/2017 None Full Exam - General 1994 Cardiovascular auscultation of heart Overall: normal heart sounds 06/06/2017 None Full Exam - General 1994 Abdomen abdominal exam Overall: no tenderness 06/06/2017 None Full Exam - General 1994 Abdomen abdominal exam Overall: normal bowel sounds 06/06/2017 None Full Exam - General 1994 Lymphatic neck nodes Overall: anterior cervical chain benign 06/06/2017 None Full Exam - General 1994 Lymphatic neck nodes Overall: posterior cervical chain benign 06/06/2017 None Full Exam - General 1994 Musculoskeletal gait and station Overall: normal gait 06/06/2017 None Full Exam - General 1994 Musculoskeletal gait and station Overall: normal station 06/06/2017 None Full Exam - General 1994 Psychiatric orientation/consciousness Overall: oriented to person, place and time 06/06/2017 None Full Exam - General 1994 Musculoskeletal upper extremity ROM - shoulder: decreased adduction 06/06/2017 None Full Exam - General 1994 Musculoskeletal upper extremity Overall: normal shoulder 06/06/2017 None Full Exam - General 1994 Constitutional general appearance Development: well developed 05/01/2017 None Full Exam - General 1994 Constitutional general appearance Development: appears stated age 0305/01/2017 None Full Exam - General 1994 Constitutional general appearance Hygiene/Attention to Grooming: poor hygiene 05/01/2017 greasy hair Full Exam - General 1994 Eyes conjunctiva /eyelids Overall: conjunctiva clear 05/01/2017 None Full Exam - General 1994 Eyes conjunctiva /eyelids Overall: cornea clear 05/01/2017 None Full Exam - General 1994 Eyes conjunctiva /eyelids Overall: eyelids normal 05/01/2017 None Full Exam - General 1994 Eyes pupils and irises Overall: pupils equal, round, reactive to light and accomodation 05/01/2017 None Full Exam - General 1994 Ears/Nose/Throat external ear Overall: normal appearance 05/01/2017 None Full Exam - General 1994 Ears/Nose/Throat external ear Overall: no masses 05/01/2017 None Full Exam - General 1994 Ears/Nose/Throat otoscopic exam Overall: external auditory canals clear 05/01/2017 None Full Exam - General 1994 Ears/Nose/Throat otoscopic exam Overall: tympanic membranes clear 05/01/2017 None Full Exam - General 1994 Ears/Nose/Throat lips/teeth/gingiva Overall: benign lips 05/01/2017 None Full Exam - General 1994 Ears/Nose/Throat lips/teeth/gingiva Teeth: missing teeth 05/01/2017 None Full Exam - General 1994 Ears/Nose/Throat oral cavity/pharynx/larynx Overall: oral mucosa clear 05/01/2017 None Full Exam - General 1994 Respiratory auscultation Overall: breath sounds clear bilaterally 05/01/2017 None Full Exam - General 1994 Respiratory respiratory effort/rhythm Overall: no retractions 05/01/2017 None Full Exam - General 1994 Respiratory respiratory effort/rhythm Overall: normal rate 05/01/2017 None Full Exam - General 1994 Cardiovascular auscultation of heart Overall: regular rate 05/01/2017 None Full Exam - General 1994 Cardiovascular auscultation of heart Overall: normal heart sounds 05/01/2017 None Full Exam - General 1994 Abdomen abdominal exam Overall: no tenderness 05/01/2017 None Full Exam - General 1994 Abdomen abdominal exam Overall: normal bowel sounds 05/01/2017 None Full Exam - General 1994 Lymphatic neck nodes Overall: anterior cervical chain benign 05/01/2017 None Full Exam - General 1994 Lymphatic neck nodes Overall: posterior cervical chain benign 05/01/2017 None Full Exam - General 1994 Musculoskeletal gait and station Overall: normal gait 05/01/2017 None Full Exam - General 1994 Musculoskeletal gait and station Overall: normal station 05/01/2017 None Full Exam - General 1994 Psychiatric orientation/consciousness Overall: oriented to person, place and time 05/01/2017 None Full Exam - General 1994 Constitutional [...] accomodation 03/08/2016 None Full Exam - General 1994 [...] rate 05/17/2013 None Full Exam - General 1995 Cardiovascular auscultation of heart Overall: normal heart sounds 05/17/2013 None Full Exam - General 1994 Cardiovascular auscultation of heart Overall: no murmurs 05/17/2013 None Full Exam - General 1994 Abdomen abdominal exam Overall: no tenderness 05/17/2013 None Full Exam - General 1995 Abdomen abdominal exam Overall: normal bowel sounds 05/17/2013 None Full Exam - General 1995 Musculoskeletal digits and nails Overall: no clubbing 05/17/2013 None Full Exam - General 1995 Musculoskeletal digits and nails Overall: digits benign 05/17/2013 None Full Exam - General 1994 Musculoskeletal spine, ribs and pelvis Posture: lordosis 05/17/2013 None Full Exam - General 1995 Musculoskeletal [...] clear 03/16/2013 None Full Exam - General 1995 Ears/Nose/Throat otoscopic exam Overall: tympanic membranes clear 03/16/2013 None Full Exam - General 1994 Ears/Nose/Throat oral cavity/pharynx/larynx Overall: oropharyngeal mucosa clear 03/16/2013 None Full Exam - General 1995 Ears/Nose/Throat oral cavity/pharynx/larynx Overall: no masses 03/16/2013 [...] clubbing 12/11/2012 None Full Exam - General 1995 Musculoskeletal digits and nails Overall: digits benign 12/11/2012 None Full Exam - General 1994 Musculoskeletal spine, ribs and pelvis Overall: ribs benign 12/11/2012 None Full Exam - General 1994 Musculoskeletal spine, ribs and pelvis Posture: lordosis 12/11/2012 None Full Exam - General 1995 Musculoskeletal [...] developed 11/24/2012 None Full Exam - General 1994 Constitutional general appearance Overall: in no acute distress 11/24/2012 None Full Exam - General 1994 Constitutional general appearance Overall: well nourished 11/24/2012 None Full Exam - General 1994 Eyes pupils and irises Overall: pupils equal, round, reactive to light and accomodation 11/24/2012 None Full Exam - General 1994 Ears/Nose/Throat otoscopic exam Overall: external auditory canals clear 11/24/2012 None Full Exam - General 1994 Ears/Nose/Throat otoscopic exam Overall: tympanic membranes clear 11/24/2012 None Full Exam - General 1995 Ears/Nose/Throat oral cavity/pharynx/larynx Overall: oropharyngeal mucosa clear 11/24/2012 None Full Exam - General 1994 Ears/Nose/Throat oral cavity/pharynx/larynx Overall: no masses 11/24/2012 None Full Exam - General 1994 Ears/Nose/Throat oral cavity/pharynx/larynx Oral mucosa: dry 11/24/2012 None Full Exam - General 1994 Ears/Nose/Throat oral cavity/pharynx/larynx Oropharynx: a normal exam 11/24/2012 None Full Exam - General 1994 Neck inspection of neck Appearance: surgical scarring 11/24/2012 None Full Exam - General 1995 Respiratory auscultation Overall: breath sounds clear bilaterally 11/24/2012 None Full Exam - General 1995 Respiratory respiratory effort/rhythm Overall: no retractions 11/24/2012 None Full Exam - General 1995 Respiratory respiratory effort/rhythm Overall: normal rate 11/24/2012 None Full Exam - General 1995 Cardiovascular auscultation of heart Overall: regular rate 11/24/2012 None Full Exam - General 1995 Cardiovascular auscultation of heart Overall: normal heart sounds 11/24/2012 None Full Exam - General 1994 Cardiovascular auscultation of heart Overall: no murmurs 11/24/2012 None Full Exam - General 1995 Abdomen abdominal exam Overall: no tenderness 11/24/2012 None Full Exam - General 1995 Abdomen abdominal exam Overall: normal bowel sounds 11/24/2012 None Full Exam - General 1995 Musculoskeletal digits and nails Overall: no clubbing 11/24/2012 None Full Exam - General 1995 Musculoskeletal digits and nails Overall: digits benign 11/24/2012 None Full Exam - General 1994 Musculoskeletal spine, ribs and pelvis Overall: ribs benign 11/24/2012 None Full Exam - General 1994 Musculoskeletal spine, ribs and pelvis Posture: lordosis 11/24/2012 None Full Exam - General 1994 [...] affect 11/24/2012 None Full Exam - General 1994 Psychiatric mood and affect Mood: happy 11/24/2012 None Full Exam - General 1994 Constitutional general appearance Overall: well developed 10/13/2012 None Full Exam - General 1994 Constitutional general appearance Overall: in no acute distress 10/13/2012 None Full Exam - General 1994 Constitutional general appearance Overall: well nourished 10/13/2012 None Full Exam - General 1994 Eyes pupils and irises Overall: pupils equal, round, reactive to light and accomodation 10/13/2012 None Full Exam - General 1994 Ears/Nose/Throat otoscopic exam Overall: external auditory canals clear 10/13/2012 None Full Exam - General 1995 Ears/Nose/Throat otoscopic exam Overall: tympanic membranes clear 10/13/2012 None Full Exam - General 1994 Ears/Nose/Throat oral cavity/pharynx/larynx Overall: oropharyngeal mucosa clear 10/13/2012 None Full Exam - General 1995 Ears/Nose/Throat oral cavity/pharynx/larynx Overall: no masses 10/13/2012 None Full Exam - General 1994 Ears/Nose/Throat oral cavity/pharynx/larynx Oral mucosa: dry 10/13/2012 None Full Exam - General 1994 [...] murmurs 10/13/2012 None Full Exam - General 1994 Abdomen abdominal exam Overall: no tenderness 10/13/2012 None Full Exam - General 1994 Abdomen abdominal exam Overall: normal bowel sounds 10/13/2012 None Full Exam - General 1994 Musculoskeletal digits and nails Overall: no clubbing 10/13/2012 None Full Exam - General 1994 Musculoskeletal digits and nails Overall: digits benign 10/13/2012 None Full Exam - General 1994 Musculoskeletal spine, ribs and pelvis Overall: ribs benign 10/13/2012 None Full Exam - General 1994 Musculoskeletal spine, ribs and pelvis Posture: lordosis 10/13/2012 None Full Exam - General 1994 [...] affect 10/13/2012 None Full Exam - General 1994 Psychiatric mood and affect Mood: happy 10/13/2012 None Full Exam - General 1994 Constitutional general appearance Overall: well developed 09/17/2012 None Full Exam - General 1994 Constitutional general appearance Overall: in no acute distress 09/17/2012 None Full Exam - General 1995 Constitutional general appearance Overall: well nourished 09/17/2012 None Full Exam - General 1994 Eyes pupils and irises Overall: pupils equal, round, reactive to light and accomodation 09/17/2012 None Full Exam - General 1995 Ears/Nose/Throat otoscopic exam Overall: external auditory canals clear 09/17/2012 None Full Exam - General 1995 Ears/Nose/Throat otoscopic exam Overall: tympanic membranes clear 09/17/2012 None Full Exam - General 1995 Ears/Nose/Throat oral cavity/pharynx/larynx Overall: oropharyngeal mucosa clear 09/17/2012 None Full Exam - General 1994 Ears/Nose/Throat oral cavity/pharynx/larynx Overall: no masses 09/17/2012 None Full Exam - General 1995 Ears/Nose/Throat oral cavity/pharynx/larynx Oral mucosa: dry 09/17/2012 None Full Exam - General 1995 Ears/Nose/Throat oral cavity/pharynx/larynx Oropharynx: a normal exam 09/17/2012 None Full Exam - General 1994 Neck inspection of neck Appearance: surgical scarring 09/17/2012 None Full Exam - General 1994 Respiratory auscultation Overall: breath sounds clear bilaterally 09/17/2012 None Full Exam - General 1994 Respiratory respiratory effort/rhythm Overall: no retractions 09/17/2012 None Full Exam - General 1994 Respiratory respiratory effort/rhythm Overall: normal rate 09/17/2012 None Full Exam - General 1994 Cardiovascular auscultation of heart Overall: regular rate 09/17/2012 None Full Exam - General 1994 Cardiovascular auscultation of heart Overall: normal heart sounds 09/17/2012 None Full Exam - General 1994 Cardiovascular auscultation of heart Overall: no murmurs 09/17/2012 None Full Exam - General 1994 Abdomen abdominal exam Overall: no tenderness 09/17/2012 None Full Exam - General 1994 Abdomen abdominal exam Overall: normal bowel sounds 09/17/2012 None Full Exam - General 1994 Musculoskeletal digits and nails Overall: no clubbing 09/17/2012 None Full Exam - General 1995 Musculoskeletal digits and nails Overall: digits benign 09/17/2012 None Full Exam - General 1995 Musculoskeletal spine, ribs and pelvis Overall: ribs benign 09/17/2012 None Full Exam - General 1995 Musculoskeletal spine, ribs and pelvis Posture: lordosis 09/17/2012 None Full Exam - General 1995 Musculoskeletal head and neck Overall: head atraumatic 09/17/2012 None Full Exam - General 1995 Musculoskeletal head and neck Overall: cervical spine benign 09/17/2012 None Full Exam - General 1995 Neurologic gait Overall: no ataxia, no unsteadiness 09/17/2012 None Full Exam - General 1995 Psychiatric orientation/consciousness Overall: oriented to person, place and time 09/17/2012 None Full Exam - General 1995 Psychiatric mood and affect Overall: normal mood and affect 09/17/2012 None Full Exam - General 1995 Psychiatric mood and affect Mood: happy 09/17/2012 None Full Exam - General 1995 Constitutional general appearance Overall: well developed 06/25/2012 None Full Exam - General 1994 Constitutional general appearance Overall: in no acute distress 06/25/2012 None Full Exam - General 1994 Constitutional general appearance Overall: well nourished 06/25/2012 None Full Exam - General 1994 Eyes pupils and irises Overall: pupils equal, round, reactive to light and accomodation 06/25/2012 None Full Exam - General 1994 Ears/Nose/Throat otoscopic exam Overall: external auditory canals clear 06/25/2012 None Full Exam - General 1995 Ears/Nose/Throat otoscopic exam Overall: tympanic membranes clear 06/25/2012 None Full Exam - General 1994 Ears/Nose/Throat oral cavity/pharynx/larynx Overall: oropharyngeal mucosa clear 06/25/2012 None Full Exam - General 1995 Ears/Nose/Throat oral cavity/pharynx/larynx Overall: no masses 06/25/2012 None Full Exam - General 1994 Ears/Nose/Throat oral cavity/pharynx/larynx Oral mucosa: dry 06/25/2012 [...] retractions 06/25/2012 None Full Exam - General 1995 Respiratory respiratory effort/rhythm Overall: normal rate 06/25/2012 [...] tenderness 06/25/2012 None Full Exam - General 1995 Abdomen abdominal exam Overall: normal bowel sounds 06/25/2012 None Full Exam - General 1995 Musculoskeletal digits and nails Overall: no clubbing 06/25/2012 None Full Exam - General 1995 Musculoskeletal digits and nails Overall: digits benign 06/25/2012 None Full Exam - General 1994 Musculoskeletal spine, ribs and pelvis Overall: ribs benign 06/25/2012 None Full Exam - General 1994 Musculoskeletal spine, ribs and pelvis Posture: lordosis 06/25/2012 None Full Exam - General 1994 Musculoskeletal head and neck Overall: head atraumatic 06/25/2012 None Full Exam - General 1994 Musculoskeletal head and neck Overall: cervical spine benign 06/25/2012 None Full Exam - General 1994 Neurologic gait Overall: no ataxia, no unsteadiness 06/25/2012 None Full Exam - General 1994 Psychiatric orientation/consciousness Overall: oriented to person, place and time 06/25/2012 None Full Exam - General 1994 Psychiatric mood and affect Overall: normal mood and affect 06/25/2012 None Full Exam - General 1994 Psychiatric mood and affect Mood: happy 06/25/2012 None Full Exam - General 1994 Constitutional general appearance Overall: well developed 06/15/2012 None Full Exam - General 1994 [...] clear 05/12/2012 None Full Exam - General 1994 Ears/Nose/Throat otoscopic exam Overall: tympanic membranes clear 05/12/2012 None Full Exam - General 1994 Ears/Nose/Throat oral cavity/pharynx/larynx Overall: oropharyngeal mucosa clear 05/12/2012 None Full Exam - General 1994 Ears/Nose/Throat oral cavity/pharynx/larynx Overall: no masses 05/12/2012 [...] dry 02/03/2012 None Full Exam - General 1995 Ears/Nose/Throat oral cavity/pharynx/larynx Oropharynx: thrush 02/03/2012 None [...] accomodation 12/02/2011 None Full Exam - General 1994 [...] clubbing 11/21/2011 None Full Exam - General 1995 Musculoskeletal digits and nails Overall: digits benign 11/21/2011 None Full Exam - General 1995 Musculoskeletal spine, ribs and pelvis Overall: ribs benign 11/21/2011 None Full Exam - General 1995 Musculoskeletal spine, ribs and pelvis Posture: lordosis 11/21/2011 None Full Exam - General 1995 Musculoskeletal head and neck Overall: head atraumatic 11/21/2011 None Full Exam - General 1994 Musculoskeletal head and neck Overall: cervical spine benign 11/21/2011 None Full Exam - General 1994 Neurologic gait Overall: no ataxia, no unsteadiness 11/21/2011 None Full Exam - General 1995 Psychiatric orientation/consciousness Overall: oriented to person, place and time 11/21/2011 None Full Exam - General 1995 Psychiatric mood and affect Overall: normal mood and affect 11/21/2011 None Full Exam - General 1995 Psychiatric mood and affect Mood: happy 11/21/2011 None Full Exam - General 1994 Ears/Nose/Throat oral cavity/pharynx/larynx Oropharynx: thrush 11/21/2011 None Full Exam - General 1994 Psychiatric mood and affect Mood: happy 10/24/2011 None Full Exam - General 1994 Abdomen abdominal exam Overall: no tenderness 10/24/2011 None Full Exam - General 1994 Abdomen [...] clear 10/24/2011 None Full Exam - General 1995 Ears/Nose/Throat [...] retractions 10/24/2011 None Full Exam - General 1995 Respiratory respiratory effort/rhythm Overall: normal rate 10/24/2011 [...] distress 10/24/2011 None Full Exam - General 1995 Constitutional general appearance Overall: well nourished 10/24/2011 None Full Exam - General 1994 Eyes pupils and irises Overall: pupils equal, round, reactive to light and accomodation 10/24/2011 None Full Exam - General 1994 Ears/Nose/Throat otoscopic exam Overall: external auditory canals clear 10/24/2011 None Full Exam - General 1995 Ears/Nose/Throat [...] clear 09/05/2011 None Full Exam - General 1995 Ears/Nose/Throat oral cavity/pharynx/larynx Overall: oral mucosa clear 09/05/2011 None Full Exam - General 1994 Ears/Nose/Throat oral cavity/pharynx/larynx Overall: oropharyngeal mucosa clear 09/05/2011 None Full Exam - General 1995 Ears/Nose/Throat oral cavity/pharynx/larynx Overall: no masses 09/05/2011 [...] masses 06/24/2011 None Full Exam - General 1995 Respiratory auscultation Overall: breath sounds clear bilaterally 06/24/2011 None Full Exam - General 1995 Respiratory respiratory effort/rhythm Overall: no retractions 06/24/2011 None Full Exam - General 1995 Respiratory respiratory effort/rhythm Overall: normal rate 06/24/2011 None Full Exam - General 1995 Cardiovascular auscultation of heart Overall: regular rate 06/24/2011 None Full Exam - General 1995 Cardiovascular auscultation of heart Overall: normal heart sounds 06/24/2011 None Full Exam - General 1995 Cardiovascular [...] developed 04/23/2011 None Full Exam - General 1994 Psychiatric mood and affect Mood: happy 04/23/2011 None Full Exam - General 1994 Psychiatric mood and affect Overall: normal mood and affect 04/23/2011 None Full Exam - General 1994 Neurologic gait Overall: no ataxia, no unsteadiness 04/23/2011 None Full Exam - General 1994 Abdomen abdominal exam Overall: no tenderness 04/23/2011 None Full Exam - General 1994 Abdomen abdominal exam Overall: normal bowel sounds 04/23/2011 None Full Exam - General 1994 Constitutional [...] 1994 Ears/Nose/Throat oral cavity/pharynx/larynx Overall: no masses 04/23/2011 None Full Exam - General 1994 [...] clear 10/24/2010 None Procedures Procedure Codes Date TRIAMCINOLONE ACET INJ NOS CPT-4: J3301 01/29/2018 ADMIN INFLUENZA VIRUS VAC CPT-4: G0008 11/17/2017 FLU VACC PRSV FREE INC ANTIG Formatting Model/CDA Sections, Assigned to/Silvina Townsend CPT-4: 64754Klpmtha 11/17/2017 PPPS, SUBSEQ VISIT CPT -4: G0439 07/25/2017 GLUCOSE MONITORING CONT CPT-4: 52732 06/25/2017 ADMIN INFLUENZA VIRUS VAC CPT-4: G0008 11/24/2015 ADMIN PNEUMOCOCCAL VACCINE SNOMED CT: 16428549 CPT-4: G0009 11/24/2015 PNEUMOCOCCAL VACC [address]: 23823028 CPT-4: 58070 11/24/2015 FLU VACC 4 ANNE 3 YRS PLUS IM Formatting Model/CDA Sections, Assigned to/Silvina Townsend SNOMED CT: 11144116 CPT-4: 47092Veedcvk 11/24/2015 PROMETHAZINE HCL INJECTION CPT-4: J2550 09/19/2015 TRIAMCINOLONE ACET INJ NOS CPT-4: J3301 08/18/2015 URINALYSIS NONAUTO W/O SCOPE CPT-4: 43314 01/31/2014 IMMUNIZATION ADMIN CPT -4: 29668 11/11/2013 FLU VAC NO PRSV 4 ANNE 3 YRS+ Assigned to/Silvina Townsend CPT-4: 53545Spbjxkq 11/11/2013 FOOT EXAM PERFORMED SNOMED CT: 26826021 CPT-4: 2028F 04/29/2013 ROUTINE VENIPUNCTURE CPT-4: 39859 04/29/2013 ROUTINE VENIPUNCTURE CPT-4: 96567 11/24/2012 ADMIN INFLUENZA VIRUS VAC CPT-4: G0008 11/10/2012 FLULAVAL VACC, 3 YRS & >, IM CPT-4: Q2036 11/10/2012 ROUTINE VENIPUNCTURE CPT-4: 98988 02/03/2012 Vital Signs Date Vital 01/29/2018 Blood Pressure 1: 110/60 Code : 8480-6 BMI: 26.8 Code : 24208-9 Heart Rate 1 : 68 bpm Height: 5'10" SpO2: 97% Temperature: 36.2 (C) / 97.2 (F) Weight: 187 lbs 01/01/2018 Blood Pressure 1: 142/78 Code : 8480-6 BMI: 26.3 Code : 41918-4 Heart Rate 1 : 68 bpm Height: 5'10" SpO2: 94% Weight: 183 lbs 12/01/2017 Blood Pressure 1: 224/96 Code : 8480-6 Blood Pressure 2: 220/90 Code: 8480-6 BMI: 24.1 Code: 26599-0 Heart Rate 1: 72 bpm Height: 5'10" SpO2: 98% Weight: 168 lbs 11/17/2017 Blood Pressure 1: 108/58 Code : 8480-6 BMI: 23.7 Code : 02812-2 Heart Rate 1 : 80 bpm Height: 5'10" SpO2: 96% Weight: 165 lbs 11/04/2017 Blood Pressure 1: 140/84 Code : 8480-6 BMI: 24.4 Code : 57260-3 Heart Rate 1 : 77 bpm Height: 5'10" SpO2: 91% Temperature: 36.9 (C) / 98.4 (F) Weight: 170 lbs 10/21/2017 Blood Pressure 1: 160/60 Code : 8480-6 BMI: 24.5 Code : 67893-0 Heart Rate 1 : 86 bpm Height: 5'10" SpO2: 96% Weight: 171 lbs 08/07/2017 Blood Pressure 1: 188/88 Code : 8480-6 BMI: 25.7 Code : 84376-9 Heart Rate 1 : 72 bpm Height: 5'10" SpO2: 91% Weight: 179 lbs 07/25/2017 Blood Pressure 1: 150/80 Code : 8480-6 BMI: 25.5 Code : 17093-2 Heart Rate 1 : 74 bpm Height: 5'10" SpO2: 98% Waist Measure (cm): 97 cm Weight: 178 lbs 06/06/2017 Blood Pressure 1: 128/58 Code : 8480-6 BMI: 27.2 Code : 48367-1 Heart Rate 1 : 62 bpm Height: 5'8" SpO2: 93% Weight: 179 lbs 05/01/2017 Blood Pressure 1: 108/58 Code : 8480-6 BMI: 27.4 Code : 48212-3 Heart Rate 1 : 70 bpm Height: 5'8" SpO2: 95% Weight: 180 lbs 01/21/2017 Blood Pressure 1: 160/80 Code : 8480-6 BMI: 26.5 Code : 71046-0 Heart Rate 1 : 73 bpm Height: 5'8" SpO2: 94% Weight: 174 lbs 10/11/2016 Blood Pressure 1: 120/62 Code : 8480-6 Heart Rate 1: 67 bpm Height: 5'8" SpO2: 97% Weight: 08/09/2016 Blood Pressure 1: 120/64 Code : 8480-6 BMI: 24.9 Code : 37414-1 Heart Rate 1 : 70 bpm Height: 5'8" SpO2: 92% Weight: 163 lbs 8 oz 07/11/2016 Blood Pressure 1: 136/78 Code : 8480-6 BMI: 24.5 Code : 99537-2 Heart Rate 1 : 66 bpm Height: 5'8" SpO2: 97% Weight: 161 lbs 07/01/2016 Blood Pressure 1: 214/100 Code: 8480-6 BMI: 25.1 Code: 73046-7 Heart Rate 1: 68 bpm Height: 5'8" SpO2: 96% Weight: 165 lbs 06/03/2016 Blood Pressure 1: 122/62 Code : 8480-6 BMI: 25.5 Code : 35099-3 Heart Rate 1 : 66 bpm Height: 5'8" SpO2: 96% Weight: 168 lbs 05/20/2016 Blood Pressure 1: 112/58 Code : 8480-6 BMI: 24.3 Code : 37770-9 Height: 5'8" Weight: 160 lbs 05/07/2016 Blood Pressure 1: 122/62 Code : 8480-6 BMI: 24.9 Code : 42974-8 Heart Rate 1 : 67 bpm Height: 5'8" SpO2: 98% Weight: 164 lbs 04/23/2016 Blood Pressure 1: 178/88 Code : 8480-6 Heart Rate 1: 85 bpm SpO2: 98% Temperature: 37.2 (C) / 99.0 (F) 04/22/2016 Blood Pressure 1: 140/72 Code : 8480-6 BMI: 25.1 Code : 59239-0 Heart Rate 1 : 80 bpm Height: 5'8" SpO2: 95% Weight: 165 lbs 04/08/2016 Blood Pressure 1: 158/80 Code : 8480-6 BMI: 25.2 Code : 67967-2 Heart Rate 1 : 74 bpm Height: 5'8" SpO2: 98% Temperature: 36.7 (C) / 98.0 (F) Weight: 166 lbs 03/08/2016 Blood Pressure 1: 148/72 Code : 8480-6 BMI: 25.4 Code : 67104-7 Heart Rate 1 : 83 bpm Height: 5'8" SpO2: 94% Weight: 167 lbs 12/08/2015 Blood Pressure 1: 140/70 Code : 8480-6 BMI: 27.8 Code : 93628-8 Heart Rate 1 : 68 bpm Height: 5'8" SpO2: 96% Weight: 183 lbs 11/13/2015 Blood Pressure 1: 120/70 Code : 8480-6 BMI: 28.0 Code : 41058-0 Heart Rate 1 : 52 bpm Height: 5'8" SpO2: 95% Weight: 184 lbs 11/03/2015 Blood Pressure 1: 128/86 Code : 8480-6 BMI: 26.6 Code : 99313-0 Heart Rate 1 : 64 bpm Height: 5'8" SpO2: 96% Weight: 175 lbs 10/20/2015 Blood Pressure 1: 120/60 Code : 8480-6 Heart Rate 1: 74 bpm Height: 5'8" SpO2: 98% Weight: 09/25/2015 Blood Pressure 1: 102/70 Code : 8480-6 BMI: 26.5 Code : 01809-4 Heart Rate 1 : 59 bpm Height: 5'8" SpO2: 97% Weight: 174 lbs 09/19/2015 Blood Pressure 1: 120/56 Code : 8480-6 BMI: 26.2 Code : 72548-5 Heart Rate 1 : 63 bpm Height: 5'8" SpO2: 99% Temperature: 36.8 (C) / 98.2 (F) Weight: 172 lbs 08/25/2015 Blood Pressure 1: 142/78 Code : 8480-6 BMI: 28.3 Code : 87234-5 Heart Rate 1 : 66 bpm Height: 5'8" SpO2: 95% Weight: 186 lbs 08/18/2015 Blood Pressure 1: 110/78 Code : 8480-6 BMI: 28.1 Code : 77262-2 Heart Rate 1 : 60 bpm Height: 5'8" SpO2: 95% Weight: 185 lbs 08/14/2015 Blood Pressure 1: 116/72 Code : 8480-6 BMI: 28.2 Code : 69956-2 Heart Rate 1 : 64 bpm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 Diagnosis: DIABETES TYPE II[ICD9: 250.00] Shama Zelaya MD, [facility] CPT-4: 17471 09/06/2014 ([id number]) 09007 EST. PATIENT, LEVEL III Diagnosis: Nausea and vomiting[ICD9: 787.01] Diagnosis: DIABETES TYPE II[ICD9: 250.00] Catherine Zelaya MD, [facility] CPT- 4: 86945 08/02/2014 ([id number]) 71391 EST. PATIENT, LEVEL IV Diagnosis: Cough[ICD9: 786.2] Diagnosis: ACUTE BRONCHITIS[ICD9: 466.0] Diagnosis: Chronic renal disease, stage 4, severely decreased glomerular filtration rate (GFR) between 15-29 mL/min/1.73 square meter[ICD9: 585.4] Diagnosis: Hypotension[ICD9: 458.9] Catherine Zelaya MD, [facility] CPT-4: 66673 07/26/2014 ([id number]) 13649 EST. PATIENT, LEVEL IV Diagnosis: Hypotension[ICD9: 458.9] Diagnosis: DM W/O COMPLICATION TYPE II, UNCONTROLLED[ICD9: 250.02] Diagnosis: Acute renal failure superimposed on stage 4 chronic kidney disease[ ICD9: 584.9] Diagnosis: COUGH[ICD9: 786.2] Shama Zelaya MD, [facility] CPT-4: 74176 07/19/2014 ([id number]) 47731 EST. PATIENT, LEVEL IV Diagnosis: HEADACHE[ICD9: 784.0] Diagnosis: Nausea and vomiting[ICD9: 787.01] Diagnosis: Chronic renal failure, stage 4 (severe)[ICD9: 585.4] Catherine Zelaya MD [facility] CPT-4: 55975 04/01/2014 ([id number]) 98451 EST. PATIENT, LEVEL IV Diagnosis: Diabetes mellitus type 2, uncontrolled[ICD9: 250.02] Diagnosis: HEADACHE[ICD9: 784.0] Diagnosis: Nausea[ICD9: 787.02] Diagnosis: Peripheral neuropathy[ICD9: 356.9] Catherine Zelaya MD, [facility] CPT-4: 21638 03/14/2014 ([id number]) 25991 EST. PATIENT, LEVEL IV Diagnosis: DIABETES TYPE II[ICD9: 250.00] Diagnosis: ESSENTIAL HYPERTENSION[ICD9: 401.9] Diagnosis: HYPOTHYROIDISM[ICD9: 244.9] Diagnosis: Gastroparesis[ICD9: 536.3] Catherine Zelaya MD, [facility] CPT- 4: 55289 02/21/2014 [id number]) 11305 EST. PATIENT, LEVEL III Diagnosis: Neck pain[ICD9: 723.1] Diagnosis: Low back pain[ICD9: 724.2] Catherine Zelaya MD [facility] CPT- 4: 20014 01/18/2014 ([id number]) 85735 EST. PATIENT, LEVEL IV Diagnosis: DM W/O COMPLICATION TYPE II, UNCONTROLLED[ICD9: 250.02] Diagnosis: ESSENTIAL HYPERTENSION[ICD9: 401.9] Catherine Zelaya MD [facility] CPT-4: 76957 09/09/2013 ([id number]) 77318 EST. PATIENT, LEVEL III Diagnosis: Abdominal pain[ICD9: 789.00] Catherine Zelaya MD [facility] CPT- 4: 67339 08/19/2013 ([id number]) 52617 EST. PATIENT, LEVEL IV Diagnosis: DM W/O COMPLICATION TYPE II, UNCONTROLLED[ICD9: 250.02] Diagnosis: ESSENTIAL HYPERTENSION[ICD9: 401.9] Catherine Zelaya MD [facility] CPT-4: 28119 08/02/2013 ([id number]) 14355 EST. PATIENT, LEVEL IV Diagnosis: Orthostatic hypotension[ICD9: 458.0] Diagnosis: DM W/O COMPLICATION TYPE II, UNCONTROLLED[SNOMED: 11044688] Catherine Zelaya MD [facility] CPT-4: 41261 07/08/2013 ([id number]) 88088 EST. PATIENT, LEVEL IV Diagnosis: ESSENTIAL HYPERTENSION[SNOMED: 48158020] Diagnosis: DM W/O COMPLICATION TYPE II, UNCONTROLLED[SNOMED: 76459417] Diagnosis: COUGH[ICD9: 786.2] Shama Zelaya MD, [facility] CPT-4: 91722 07/01/2013 ([id number]) 54548 EST. PATIENT, LEVEL IV Diagnosis: Diabetes mellitus type 2, uncontrolled[ICD9: 250.02] Diagnosis: ESSENTIAL HYPERTENSION[ICD9: 401.9] Catherine Zelaya MD [facility] CPT-4: 11578 06/21/2013 ([id number]) 11604 EST. PATIENT, LEVEL IV Diagnosis: COUGH[ICD9: 786.2] Diagnosis: ESSENTIAL HYPERTENSION[SNOMED: 43985839] Diagnosis: ANEMIA[ICD9: 285.9] Diagnosis: Pneumonia[ICD9: 486] Catherine Zelaya MD, [facility] CPT-4: 01793 06/07/2013 ([id number]) Patient admitted to the hospital from clinic (NO CHARGE) Diagnosis: Acute renal failure[ICD9: 584.9] Diagnosis: Hypotension[ICD9: 458.9] Diagnosis: Nausea and vomiting[ICD9: 787.01] Diagnosis: DM W/O COMPLICATION TYPE II, UNCONTROLLED[SNOMED: 52873232] Diagnosis: Gastroenteritis[ICD9: 558.9] Diagnosis: Cough[ICD9: 786.2] Shama Zelaya MD, [facility] CPT-4: 25588Y 05/17/2013 ([id number]) 38048 EST. PATIENT, LEVEL IV Diagnosis: DM W/O COMPLICATION TYPE II, UNCONTROLLED[SNOMED: 19187622] Diagnosis: ESSENTIAL HYPERTENSION[SNOMED: 05521261] Diagnosis: HYPOTHYROIDISM[ICD9: 244.9] Diagnosis: Diabetic peripheral neuropathy[ICD9: 250.60] Diagnosis: Encounter for long-term (current) use of other medications[ICD9: V58.69] Shama Zelaya MD, [facility] CPT-4: 42820 ([id number]) 09655 EST. PATIENT, LEVEL III Diagnosis: ESSENTIAL HYPERTENSION[SNOMED: 62835294] Diagnosis: DM W/O COMPLICATION TYPE II, UNCONTROLLED[SNOMED: 04006150] Catherine Zelaya MD , [facility] CPT-4: 15407 03/26/2013 ([id number]) 49886 EST. PATIENT, LEVEL IV Diagnosis: ESSENTIAL HYPERTENSION[SNOMED: 68121900] Diagnosis: CHEST PAIN[ICD9: 786.50] Diagnosis: DM W/O COMPLICATION TYPE II, UNCONTROLLED[SNOMED: 08293344] Shama Zelaya MD, [facility] CPT-4: 59344 03/16/2013 ([id number]) 74546 EST. PATIENT, LEVEL IV Diagnosis: DM W/O COMPLICATION TYPE II, UNCONTROLLED[SNOMED: 72930824] Diagnosis: ESSENTIAL HYPERTENSION[SNOMED: 76151466] Diagnosis: Noncompliance[ICD9: V15.81] Catherine Zelaya MD, [facility] CPT- 4: 20983 03/09/2013 ([id number]) 71112 EST. PATIENT, LEVEL IV Diagnosis: DM W/O COMPLICATION TYPE II, UNCONTROLLED[SNOMED: 73781130] Diagnosis: ESSENTIAL HYPERTENSION[SNOMED: 79379737] Diagnosis: Abscess, dental[ICD9: 522.5] Catherine Zelaya MD, [facility] CPT- 4: 82567 12/11/2012 ([id number]) 70251 EST. PATIENT, LEVEL IV Diagnosis: DM W/O COMPLICATION TYPE II, UNCONTROLLED[SNOMED: 38116138] Diagnosis: ESSENTIAL HYPERTENSION[SNOMED: 03745050] Diagnosis: HYPOTHYROIDISM[ICD9: 244.9] Catherine Zelaya MD [facility] CPT- 4: 26976 11/24/2012 ([id number]) 63591 EST. PATIENT, LEVEL IV Diagnosis: DM W/O COMPLICATION TYPE II, UNCONTROLLED[SNOMED: 77505101] Diagnosis: ESSENTIAL HYPERTENSION[SNOMED: 77975719] Diagnosis: COUGH[ICD9: 786.2] Diagnosis: Acute bronchitis[ICD9: 466.0] Catherine Zelaya MD [facility] CPT- 4: 40014 10/13/2012 ([id number]) 76487 EST. PATIENT, LEVEL IV Diagnosis: DM W/O COMPLICATION TYPE II, UNCONTROLLED[SNOMED: 48952465] Diagnosis: ESSENTIAL HYPERTENSION[SNOMED: 36052794] Diagnosis: Rib pain on left side[ICD9: 786.50] Diagnosis: Syncope[ICD9: 780.2] Catherine Zelaya MD [facility] CPT-4: 59776 09/17/2012 ([id number]) 19833 EST. PATIENT, LEVEL IV Diagnosis: DM W/O COMPLICATION TYPE II, UNCONTROLLED[SNOMED: 82732968] Diagnosis: HYPOTHYROIDISM[ICD9: 244.9] Catherine Zelaya MD [facility] CPT- 4: 48969 06/25/2012 ([id number]) 12363 EST. PATIENT, LEVEL III Diagnosis: Orthostatic hypotension[ICD9: 458.0] Diagnosis: [facility][ICD9: E888.9] Catherine Zelaya MD [facility] CPT-4: 07894 06/15/2012 ([id number]) 31076 EST. PATIENT, LEVEL IV Diagnosis: DM W/O COMPLICATION TYPE II, UNCONTROLLED[SNOMED: 14839765] Diagnosis: HYPOTHYROIDISM[ICD9: 244.9] Diagnosis: ESSENTIAL HYPERTENSION[SNOMED: 85837824] Catherine Zelaya MD [facility] CPT-4: 24293 05/12/2012 ([id number]) 49049 EST. PATIENT, LEVEL IV Diagnosis: DM W/O COMPLICATION TYPE II, UNCONTROLLED[SNOMED: 83052991] Diagnosis: ESSENTIAL HYPERTENSION[SNOMED: 69961163] Diagnosis: LYMPHOMAS NEC EXTRANODAL/NOS[ICD9: 202.80] Diagnosis: HYPOTHYROIDISM[ICD9: 244.9] Catherine Zelaya MD, [facility] CPT- 4: 82035 02/03/2012 ([id number]) 91573 EST. PATIENT, LEVEL IV Diagnosis: DM W/O COMPLICATION TYPE II, UNCONTROLLED[SNOMED: 97772638] Diagnosis: Mouth dryness[ICD9: 527.7] Diagnosis: COUGH[ICD9: 786.2] Catherine Zelaya MD, [facility] CPT-4: 33388 01/02/2012 94322 EST. PATIENT, LEVEL IV Diagnosis: THRUSH[ICD9: 112.0] Diagnosis: COUGH[ICD9: 786.2] Diagnosis: DIABETES TYPE II[SNOMED: 197447802] Catherine Zelaya MD, [facility] CPT-4: 45178 12/02/2011 ([id number]) 38736 EST. PATIENT, LEVEL IV Diagnosis: DM W/O COMPLICATION TYPE II, UNCONTROLLED[SNOMED: 45861701] Diagnosis: ESSENTIAL HYPERTENSION[SNOMED: 70756892] Diagnosis: COUGH[ICD9: 786.2] Diagnosis: Thrush[ICD9: 112.0] Catherine Zelaya MD, [facility] CPT-4: 13209 11/21/2011 ([id number]) 10626 EST. PATIENT, LEVEL IV Diagnosis: DM W/O COMPLICATION TYPE II, UNCONTROLLED[SNOMED: 45847359] Diagnosis: ESSENTIAL HYPERTENSION[SNOMED: 53226174] Diagnosis: OBESITY[ICD9: 278.00] Catherine Zelaya MD, [facility] CPT-4: 82651 10/24/2011 ([id number]) 15524 EST. PATIENT, LEVEL IV Diagnosis: ESSENTIAL HYPERTENSION[SNOMED: 25793465] Diagnosis: DM W/O COMPLICATION TYPE II, UNCONTROLLED[SNOMED: 80352293] Catherine Zelaya MD , [facility] CPT-4: 87243 09/05/2011 ([id number]) 71565 EST. PATIENT, LEVEL IV Diagnosis: DM W/O COMPLICATION TYPE II, UNCONTROLLED[SNOMED: 28936273] Diagnosis: ESSENTIAL HYPERTENSION[SNOMED: 80212907] Diagnosis: LYMPHOMAS NEC EXTRANODAL/NOS[ICD9: 202.80] [facility] CPT-4: 03802 07/08/2011 ([id number]) 80141 EST. PATIENT, LEVEL IV Diagnosis: DIABETES TYPE II[SNOMED: 587987313] Diagnosis: ESSENTIAL HYPERTENSION[SNOMED: 33253150] Diagnosis: Lymphoma[ICD9: 202.80] CLEOPATRA Hernandez MD CPT-4: 52878 06/24/2011 ([id number]) 45140 EST. PATIENT, LEVEL IV Diagnosis: Diabetes mellitus type 2, uncontrolled[SNOMED: 35184858] Diagnosis: ESSENTIAL HYPERTENSION[SNOMED: 24879672] Diagnosis: Depression[ICD9: 311] CLEOPATRA Hernandez MD CPT-4: 44735 04/23/2011 55749 EST. PATIENT, LEVEL IV Diagnosis: Mycoplasma pneumonia[ICD9: 483.0] Diagnosis: ESSENTIAL HYPERTENSION[SNOMED: 18458426] Diagnosis: DIABETES TYPE II[SNOMED: 936883892] Diagnosis: Cough[ICD9: 786.2] Catherine Zelaya MD, [facility] CPT-4: 17804 10/24/2010 Plan of Care Planned Activity Notes Codes Status Date Visit Plan: Pneumonia - Pt has been diagnosed with pneumonia by physical exam. A chest xray has been ordered as have antibiotics. The pt is aware of the diagnosis and the need for acute treatment of this illness. 01/29/2018 Appointment: Shama Copeland WPtel: [address] [place], [place] [phone] (15 min) Moderate 01/29/2018 Patient Education: Patient Medication Summary Completed 01/29/2018 Care Plan: CHEST X-RAY 2VW FRONTAL&LATL LOINC : 68551-6 Pending 01/29/2018 Visit Plan: HTN - uncontrolled during dialysis - I have discussed with dr. goncalves- does he want genoveva to have any antihypertensives during dialysis if his blood pressure spikes. We have decided upon clonidine 0.1mg po if systolic blood pressure is at or above 170. A message was left for genoveva and the rx sent to the pharmacy 01/01/2018 Appointment: [phone] [facility] (15 min) Moderate 01/01/2018 Patient Education: Patient Medication Summary Completed 01/01/2018 Patient Education: Hypertension Completed 01/01/2018 Visit Plan: Hypertension - uncontrolled - the [...] pt is to call for acute concerns. Pt did not take his medication before dialysis today, will take his medication as soon as he gets home, he will call if his pressure does not improve. 12/01/2017 Appointment: [facility] Zel[facility]el[facility] [phone] [facility] (15 min) Moderate 12/01/2017 Patient Education: Patient Medication Summary Completed 12/01/2017 Patient Education: Hypertension Completed 12/01/2017 Visit Plan: Hypertension - well controlled - continue with current medications, continue with no added salt diet. Pt has been encouraged to exercise daily. The pt has been advised to call the office if there are any acute concerns about change in blood pressure readings at home. Recent pneumonia - continue with levaquin - monitor symptoms - RTC in 2 weeks to assure that Genoveva is improving. He has been advised to get flu vaccine today- high dose given in clinic due to his multiple co-morbid conditions. 11/17/2017 Appointment: [facility] Zel[facility]el[facility] [phone] [facility] (15 min) Moderate 11/17/2017 Appointment: Shama Copeland WPtel: [phone] [phone] [place] (30 min) Complex 11/17/2017 Patient Education: Patient Medication Summary Completed 11/17/2017 Patient Education: Hypertension Completed 11/17/2017 Visit Plan: Bronchitis - acute case of bronchitis identified. Pt has been given antibiotics, breathing treatments as appropriate, and pt has been instructed to call if symptoms are not improved, or if symptoms acutely worsen. 11/04/2017 Appointment: Shama Copeland WPtel: [facility] [place] [address] (15 min) Moderate 11/04/2017 Patient Education: Patient Medication Summary Completed 11/04/2017 Visit Plan: Hypertension/hypotension - The patient has been counseled to cut [...] pt is to call for acute concerns. Renal failure-on dialysis - defer to specialist - pt is to notify clinic with any changes in current treatment plan. 10/21/2017 Appointment: Tess Russo WPtel: [facility] (30 min) Complex 10/21/2017 Patient Education: Patient Medication Summary Completed 10/21/2017 Visit Plan: Labile HTN-no change in medications today- monitor blood pressure and pulse at home and bring readings in 2 weeks Hypothyroidism-check labs Renal failure-on dialysis 08/07/2017 Appointment: Shama Copeland WPtel: [phone] (15 min) Moderate 08/07/2017 Patient Education: Patient Medication Summary Completed 08/07/2017 Care Plan: Tsh Cancelled 08/07/2017 Care Plan: Free T4 Cancelled 08/07/2017 Visit Plan: Medicare Exam - today we discussed the patients past history, immunizations, preventative exams/evaluations - colonoscopy, fecal occult blood testing, routine labs for renal function, glucose, cholesterol, osteoporosis evaluations, cardiovascular testing and cancer screenings. We have also discussed mental health and the signs/symptoms of depression. The patient was advised of home safety evaluations and the need to make sure that as the aging process continues, we need to be aware of different ways to make the home a safer place to reside. The patient has also been counseled that exercise is necessary - and of utmost importance as we age to help decrease fall risk and to maintain independence in the home. Today we discussed the need for the patient to create paperwork for Advanced directives as well as for the patient to provide this office with a copy of her DOPA paperwork for health care surrogate. 07/25/2017 Visit Plan: Medicare Exam - today we discussed the patients past history, immunizations, preventative exams/evaluations - colonoscopy, fecal occult blood testing, routine labs for renal function, glucose, cholesterol, osteoporosis evaluations, cardiovascular testing and cancer screenings. We have also discussed mental health and the signs/symptoms of depression. The patient was advised of home safety evaluations and the need to make sure that as the aging process continues, we need to be aware of different ways to make the home a safer place to reside. The patient has also been counseled that exercise is necessary - and of utmost importance as we age to help decrease fall risk and to maintain independence in the home. Today we discussed the need for the patient to create paperwork for Advanced directives as well as for the patient to provide this office with a copy of her DOPA paperwork for health care surrogate. 07/25/2017 Patient Education: Patient Medication Summary Completed 07/25/2017 Appointment: Tess Russo WPtel: [facility] (15 min) Moderate 07/01/2017 Appointment: Tess Russo WPtel: [address] [place], [place] [address] (15 min) Moderate 06/30/2017 Appointment: Tess Russo WPtel: [address] [place], [place] [phone] (15 min) Moderate 06/30/2017 Visit Plan: Continuous glucose monitor placed - pt tolerated procedure well - pt verbalizes understanding of plan for finger stick and food logs, pt verbalizes understand use/need for monitor and when to return for removal. Diabetes Mellitus - I have recommended for [...] to allow for greater blood glucose control. 06/25/2017 Appointment: [phone] [facility] (30 min) Complex 06/25/2017 Patient Education: Patient Medication Summary Completed 06/25/2017 Visit Plan: Right shoulder and knee pain-refill hydrocodone for prn breakthrough pain use only-discussed with patient and understanding verbalized 06/06/2017 Appointment: Shama Copeland WPtel: [phone] [phone] (15 min) Moderate 06/06/2017 Patient Education: Patient Medication Summary Completed 06/06/2017 Visit Plan: Hypertension - well controlled - [...] are starting to become less controlled. Renal failure-continues on dialysis 05/01/2017 Appointment: Shama Copeland WPtel: [phone] [phone] (30 min) Complex 05/01/2017 Patient Education: Patient Medication Summary Completed 05/01/2017 Appointment: Shama Copeland WPtel: [phone] (30 min) Complex 04/22/2017 Appointment: Shama Copeland WPtel: [phone] [place] (10 min) Simple 01/28/2017 Visit Plan: Diabetes [...] failure-on dialysis 01/21/2017 Appointment: Shama Copeland WPtel: [address] [place], [place] [phone] (30 min) Complex 01/21/2017 Patient Education: Patient Medication Summary Completed 01/21/2017 Appointment: Shama Copeland WPtel: [address] [place], [place] [phone] (30 min) Complex 01/16/2017 Visit Plan: Hypertension [...] Summary Completed 10/11/2016 Appointment: Shama Copeland WPtel: [address] [place], [place] [phone] (30 min) Complex 10/08/2016 Visit Plan: Hypertension - well controlled - continue with current medications, continue with no added salt diet. Pt has been encouraged to exercise daily. The pt has been advised to call the office if there are any acute concerns about change in blood pressure readings at home. 08/09/2016 Appointment: Shama Copeland WPtel: [phone] (30 min) Complex 08/09/2016 Patient Education: Patient Medication Summary Completed 08/09/2016 Visit Plan: HTN-continue medications as directed-monitor blood pressure TID at home and call with readings. ER for chest pain, SOA, etc. Patient verbalized understanding of plan. 07/11/2016 Appointment: Shama Copeland WPtel: [phone] (30 min) Complex 07/11/2016 Patient Education: [...] acute concerns. 07/01/2016 Appointment: Shama Copeland WPtel: [phone] (30 min) Complex 07/01/2016 Patient Education: Patient Medication Summary Completed 07/01/2016 Appointment: Shama Copeland WPtel: [address] [place], [place] [phone] (30 min) Complex 06/06/2016 Visit Plan: Constipation-increase lactulose to TID Hypothyroidism-patient not taking medication-unsure when he stopped it but thinks it-RX sent to patient's pharmacy and instructed on use-f/u in 1 month with labs 06/03/2016 Appointment: Shama Copeland WPtel: [phone] (30 min) Complex 06/03/2016 Patient Education: [...] regimen. 05/20/2016 Appointment: Shama Copeland WPtel: [phone] [phone] (30 min) Complex 05/20/2016 Patient Education: [...] routinely 05/07/2016 Appointment: Shama Copeland WPtel: [phone] [phone] (30 min) Complex 05/07/2016 Patient Education: [...] other questions or concerns. 04/22/2016 Appointment: Tess Russo WPtel: [address] [facility] (30 min) Complex 04/22/2016 Patient Education: Patient [...] of control. 04/08/2016 Appointment: Shama Copeland WPtel: [phone] [phone] (30 min) Complex 04/08/2016 Patient Education: [...] starting to become less controlled. Renal failure-sees snubber-going to start dialysis friday Hypothyroidism-check labs 03/08/2016 Appointment: Shama Copeland WPtel: [phone] (30 min) Complex 03/08/2016 Patient Education: Patient Medication Summary Completed 03/08/2016 Appointment: Catherine Zelaya WPtel: [address] [place], [place] [address] (15 min) Moderate 12/27/2015 Appointment: Shama Copeland WPtel: [phone] (30 min) Complex 12/12/2015 Visit Plan: [...] Apnea-patient continues to use CPAP device 11/13/2015 Visit Plan: Diabetes Mellitus - I [...] QID prn wheezing/ shortness of breath 11/13/2015 Appointment: Shama Copeland WPtel: [facility] [address] (30 min) Complex 11/13/2015 Patient Education: Patient [...] and supplies 11/03/2015 Appointment: Shama Copeland WPtel: [address] [place] [phone] (30 min) Complex 11/03/2015 Patient Education: Patient Medication Summary Completed 11/03/2015 Visit Plan: Hypertension - too well controlled - decrease carvedilol to 1/2 tab twice daily. Monitor blood pressure and puse at home. The pt has been advised to call the office if there are any acute concerns about change in blood pressure readings at home. Pyphjvexn-zrxarue-got to #1- medications adjusted Chronic renal disease-fax labs to snubber-patient due for appt Headache-recent fall-CT head negative-adjusted medications today in the office-call if symptoms do not resolve or if any worse 10/20/2015 Appointment: Shama Copeland WPtel: [facility] [place] [phone] [place] (30 min) Complex 10/20/2015 Patient Education: Patient Medication Summary Completed 10/20/2015 Appointment: Shama Copeland WPtel: [address] [place], [place] [phone] (30 min) Complex 10/12/2015 Visit Plan: Hypertension - too well controlled - decrease carvedilol to 1/2 tab twice daily. Monitor blood pressure and puse at home. The pt has been advised to call the office if there are any acute concerns about change in blood pressure readings at home. Vqwozrmlx-luwhghb-oxp to #1- medications adjusted-check labs including UA Constipation-patient sent for KUB today Chronic renal disease-fax labs to snubber-patient has appt next week 09/25/2015 Appointment: Shama Copeland WPtel: [phone] (30 min) Complex 09/25/2015 Patient Education: Patient Medication Summary Completed 09/25/2015 Care Plan: X-RAY EXAM OF ABDOMEN LOINC : 12554-0 Pending 09/25/2015 Visit Plan: Gastroparesis - Nausea [...] any concerns. 08/25/2015 Appointment: Shama Copeland WPtel: [phone] [place] (30 min) Complex 08/25/2015 Patient Education: Patient Medication Summary Completed 08/25/2015 Referral: Julianna Thibodeaux Referral Initiated 08/23/2015 Care Plan: CHEST X-RAY 2VW FRONTAL&LATL LOINC : 25197-3 Pending 08/19/2015 Visit Plan: Pneumonia - Pt [...] if needed 08/18/2015 Appointment: Shama Copeland WPtel: [phone] [place] (15 min) Moderate 08/18/2015 Patient [...] 08/14/2015 Care Plan: Referral Order SNOMED-CT : [id number] Pending 08/11/2015 Appointment: Nurse Visit 08/10/2015 Patient [...] failure-patient receiving peritoneal dialysis at home-appt with snubber Friday05/18/2015 Appointment: (30 min) Complex 05/18/2015 Patient [...] the 80%'s-will obtain hospital records-concentrator ordered through [employer] while an inpatient-patient wants to get portable [...] the 80%'s-will obtain hospital records-concentrator ordered through [employer] while an inpatient-patient wants to get portable [...] medication. 11/22/2014 App[facility]ment: Catherine [facility]el[phone] [facility] (15 min) Moderate 11/22/2014 Patient Education: Patient Medication Summary Completed 11/22/2014 Visit Plan: Hypotension-pt is on chronic antihypertensive medication - the medication has been adjusted down to attempt to alleviate the low blood pressures. Patient was also sent over for 1 literal normal saline today at the hospital. DECREASE COREG TO 3.125 1/2 TAB TWICE DAILY. Chronic renal fgtnlzu-mazjmpzhp-gcqm labs to Dr Crowell for further management-IVF today at the hospital Ufkaayhw-wspnbqmvoast-bhsypva is non compliant with diet- no change [...] 09/06/2014 Care Plan: Referral Order SNOMED-CT : [id number] Ordered 09/06/2014 Visit Plan: Nausea/vomiting and diabetes-prolonged [...] Patient Education: Hypertension Completed 07/26/2014 Visit Plan: Vlowyaifxjg-fekffzovo-Te [place] in to evaluate patient-plan to send to the hospital for IVF and decrease coreg to 1/2 tab twice daily-follow up in 2 weeks RY-yfphhhwguwck-gdgmq blood sugar log to next appointment Chronic renal disease-followed by Dr Crowell-repeat labs Mktrl-bumhcndf-dvwe if symptoms do not resolve 07/19/2014 Appointment: [...] have labs. 04/01/2014 Appointment: Catherine Zelaya WPtel: [address] [place], [place] [address] Follow up 04/01/2014 Patient Education: Patient Medication [...] hydrocodone. 03/14/2014 Appointment: Catherine Zel[facility]Ptel[facility] [phone] [facility] Follow up 03/14/2014 Patient Education: Patient [...] control. 02/21/2014 Appointment: Catherine [facility]Ptel[facility] [phone] [facility] Follow up 02/21/2014 Patient Education: Patient Medication Summary Completed 02/21/2014 Patient Education: Hypertension Completed 02/21/2014 Visit Plan: + glucose, + blood, no nitrites, no leukocytes , no culture indicated. 01/31/2014 Appointment: Catherine Zelaya WPtel: [phone] [facility] [place] Nurse Visit 01/31/2014 Patient Education: Patient [...] at home. 09/09/2013 Appointment: Catherine Zelaya WPtel: [facility] [address] follow up 09/09/2013 Patient Education: Patient Medication Summary Completed 09/09/2013 Patient Education: Hypertension Completed 09/09/2013 Appointment: Catherine Zelaya WPtel: [facility] [place] [id number] Follow up 08/31/2013 Visit Plan: Pt has [...] urine straining. 08/19/2013 Appointment: Catherine Zelaya WPtel: [facility]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
[2018-02-06] MEDS ORDERED: RT-ALBUTEROL/IPRATROPIUM 3 ML (DUONEB) VIAL INH ONE (13:00)
--- NOTE | 2018-02-06 13:07 | ED Cough/URI ---
General Stated Complaint: WEAKNESS;SLURRING WORDS Source: patient, family (sonmorteza) Exam Limitations: no limitations History of Present Illness Date Seen by Provider: Feb 06, 2018 Time Seen by Provider: 12:50 Initial Comments Patient presents to ER by private conveyance with his son and chief complaint that he just finished hemodialysis for his end-stage renal disease as per usual. Staff made the son come pick him up because they said they called 2.2 L of fluid off him and were concerned that he was stumbling around and did not look steady on his feet and he did not want him to drive home. He has had a chronic cough but here lately has been more loose and productive. Denies fevers chills chest pain abdominal pain nausea vomiting, falls diarrhea or constipation. His chronic cough is because of history of radiation therapy to the chest. Is never a smoker. No history of COPD or asthma. 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 He did not notice any facial asymmetry, weakness or difficulty expressing himself. He said that improved within a minute or 2 and then the patient was more understandable but he asked a few questions more than once on the ride over to the ER. His father has a history of 13 stents but no history of stroke. Allergies and Home Medications Allergies Coded Allergies: No Known Drug Allergies (Unverified , 01/03/14) Home Medications Acetaminophen/Diphenhydramine 1 Each Tablet, 1 TAB PO HS PRN for SLEEP, ( Reported) Albuterol 8.5 Gm Hfa.aer.ad, 2 PUFF IH Q4H PRN for SHORTNESS OF BREATH, ( Reported) Albuterol Sulfate 0.83 Mg/Ml Solution, 2.5 MG IH Q8H PRN for SHORTNESS OF BREATH, (Reported) Alprazolam 0.5 Mg Tablet, 0.5 MG PO TID PRN for ANXIETY, (Reported) Amlodipine Besylate 5 Mg Tablet, 5 MG PO DAILY, (Reported) Amlodipine Besylate 10 Mg Tablet, 10 MG PO DAILY Prescribed by: ISSAC GRAHAM on 10/15/17 2603 Aspirin 81 Mg Tabec, 81 MG PO DAILY, (Reported) Calcium Acetate 667 Mg Capsule, 667 MG PO TID, (Reported) Carvedilol 6.25 Mg Tablet, 6.25 MG PO BID, (Reported) Colesevelam HCl 625 Mg Tablet, 1,875 MG PO BID, (Reported) TAKES 3 (625 MG) TABLETS Docusate Sodium 100 Mg Capsule, 100 MG PO DAILY PRN for CONSTIPATION, (Reported) Gabapentin 100 Mg Capsule, 100 MG PO TID, (Reported) Hydralazine HCl 25 Mg Tablet, 25 MG PO TID, (Reported) Insulin Detemir 100 Unit/1 Ml Insuln.pen, 15 UNITS SQ TID, (Reported) Insulin Lispro 100 Unit/1 Ml Cartridge, 15 UNITS SQ AC, (Reported) PATIENT USES ON SLIDING SCALE Isosorbide Mononitrate 30 Mg Tab.er.24h, 30 MG PO DAILY, (Reported) Levothyroxine Sodium 175 Mcg Tablet, 175 MCG PO BID, (Reported) Losartan Potassium 100 Mg Tablet, 100 MG PO DAILY Prescribed by: ISSAC GRAHAM on 10/15/17 1648 [place] 3 Polyunsat Fatty Acids 1,000 Mg Cap, 3,000 MG PO BID, (Reported) TAKES 3 (1000 MG) CAPSULES Tiotropium [place] 1 Inh Aerp, 1 PUFF IH DAILY PRN for SHORTNESS OF BREATH, ( Reported) Patient Home Medication List Home Medication List Reviewed: Yes Review of Systems Review of Systems Constitutional: No chills, No diaphoresis, No fever, No malaise EENTM: No ear discharge Respiratory: cough; No orthopnea; phlegm, short of breath; No wheezing Cardiovascular: No chest pain, No edema, No palpitations, No syncope Gastrointestinal: No abdominal pain, No constipation, No diarrhea Genitourinary: No discharge, No dysuria Musculoskeletal: No back pain, No joint pain, No joint swelling Skin: No pruritus, No rash Psychiatric/Neurological: Denies Headache, Denies Numbness Past Hybhtws-Gxhbmz-Ewphzp Hx Patient Social History Alcohol Use: Denies Use Recreational Drug Use: No Smoking Status: Never a Smoker 2nd Hand Smoke Exposure: No Recent Hopitalizations: Yes Immunizations Up To Date Tetanus Booster (TDap): Unknown PED Vaccines UTD: No Date of Pneumonia Vaccine: Nov 30, 2012 Date of Influenza Vaccine: Nov 20, 2016 Seasonal Allergies Seasonal Allergies: Yes Past Medical History Surgeries: Yes (I-LINQ DEVICE) Cardiac, Coronary Stent, Orthopedic, Thyroidectomy Respiratory: Yes (PULMONARY EDEMA; HAS HAD PNEUMONIA A FEW TIMES) Pneumonia Cardiac: Yes Atrial Fibrillation, Coronary Artery Disease, Heart Attack, High Cholesterol, Hypertension, Syncope Neurological: Yes Neuropathy Reproductive Disorders: No Sexually Transmitted Disease: No HIV/AIDS: No Genitourinary: Yes Kidney Stones, Renal Failure, Dialysis Gastrointestinal: Yes Gastroesophageal Reflux Musculoskeletal: Yes (CHROINC NECK PAOIN ) Chronic Back Pain, Gout Endocrine: Yes Hypothyroidsim, Diabetes, Non-Insulin dep HEENT: No Glaucoma Hearing Impairment: Denies Cancer: Yes Lymphoma, Thyroid Did You Recieve Any Treatments: Yes What Type of Treatment Did You: Chemotherapy, Radiation Psychosocial: Yes Anxiety Integumentary: No Blood Disorders: No Adverse Reaction/Blood Tranf: No Family Medical History Cardiovascular disease 19 MOTHER G8 BROTHER (heart attack at 17 and is 72 years old now) FH: bladder cancer 19 FATHER FH: breast cancer 19 MOTHER Hypertension G8 SISTER Parkinson's disease G8 SISTER Heart Disease, Cancer, Hypertension Physical Exam Vital Signs - First Documented 02/06/18 13:14 Temp 96.1 Pulse 54 Resp 22 B/P (MAP) 181/105 (130) Pulse Ox 97 O2 Delivery Nasal Cannula O2 Flow Rate 2.00 Capillary Refill : Height: 5'10.00" Weight: 177lbs. 9.0oz. 80.502433eh; 26.54 BMI Method:Stated General Appearance: WD/WN, no apparent distress Eyes: Bilateral Eye Normal Inspection, Bilateral Eye PERRL, Bilateral Eye EOMI HEENT: PERRL/EOMI, normal ENT inspection, TMs normal, pharynx normal Neck: non-tender, full range of motion, normal inspection Respiratory: chest non-tender, no respiratory distress, no accessory muscle use , rales (right sided), rhonchi, wheezing (right-sided) Cardiovascular: normal peripheral pulses, regular rate, rhythm Gastrointestinal: normal bowel sounds, non tender, soft Extremities: normal range of motion, non-tender, normal capillary refill Neurologic/Psychiatric: alert, oriented x 3 Skin: normal color, warm/dry Progress/Results/Core Measures Suspected Sepsis SIRS Temperature: Pulse: Respiratory Rate: Laboratory Tests 02/06/18 13:05: White Blood Count 6.0 Blood Pressure / Mean: Laboratory Tests 02/06/18 13:05: Creatinine 3.39H, INR Comment 1.0, Platelet Count 160, Total Bilirubin 0.4 Results/Orders Lab Results Laboratory Tests Test 02/06/18 13:05 Range/Units White Blood Count 6.0 4.3-11.0 10^3/uL Red Blood Count 3.12 L 4.35-5.85 10^6/uL Hemoglobin 10.5 L 13.3-17.7 G/DL Hematocrit 31 L 40-54 % Mean Corpuscular Volume 100 H 80-99 FL Mean Corpuscular Hemoglobin 34 25-34 PG Mean Corpuscular Hemoglobin Concent 34 32-36 G/DL Red Cell Distribution Width 14.3 10.0-14.5 % Platelet Count 160 130-400 10^3/uL Mean Platelet Volume 9.1 7.4-10.4 FL Neutrophils (%) (Auto) 68 42-75 % Lymphocytes (%) (Auto) 18 12-44 % Monocytes (%) (Auto) 9 0-12 % Eosinophils (%) (Auto) 5 0-10 % Basophils (%) (Auto) 1 0-10 % Neutrophils # (Auto) 4.1 1.8-7.8 X 10^3 Lymphocytes # (Auto) 1.1 1.0-4.0 X 10^3 Monocytes # (Auto) 0.5 0.0-1.0 X 10^3 Eosinophils # (Auto) 0.3 0.0-0.3 10^3/uL Basophils # (Auto) 0.0 0.0-0.1 10^3/uL Prothrombin Time 12.7 12.2-14.7 SEC INR Comment 1.0 0.8-1.4 Activated Partial Thromboplast Time 71 H 24-35 SEC Sodium Level 134 L 135-145 MMOL/L Potassium Level 3.7 3.6-5.0 MMOL/L Chloride Level 93 L 98-107 MMOL/L Carbon Dioxide Level 29 21-32 MMOL/L Anion Gap 12 5-14 MMOL/L Blood Urea Nitrogen 15 7-18 MG/DL Creatinine 3.39 H 0.60-1.30 MG/DL Estimat Glomerular Filtration Rate 18 BUN/Creatinine Ratio 4 Glucose Level 104 70-105 MG/DL Calcium Level 8.6 8.5-10.1 MG/DL Corrected Calcium 8.5 8.5-10.1 MG/DL Total Bilirubin 0.4 0.1-1.0 MG/DL Aspartate Amino Transf (AST/SGOT) 38 H 5-34 U/L Alanine Aminotransferase (ALT/SGPT) 22 0-55 U/L Alkaline Phosphatase 62 40-136 U/L Troponin I < 0.30 <0.30 NG/ML C-Reactive Protein High Sensitivity 0.68 H 0.00-0.50 MG/DL Total Protein 7.4 6.4-8.2 GM/DL Albumin 4.1 3.2-4.5 GM/DL Serum Alcohol < 10 <10 MG/DL Micro Results Microbiology 02/06/18 Influenza Types A,B Antigen (LUPILLO) - Final, Complete My Orders Orders - BRUCE LIMA Alcohol (02/06/18 12:54) Cbc With Automated Diff (02/06/18 12:54) Comprehensive Metabolic Panel (02/06/18 12:54) Hs C Reactive Protein (02/06/18 12:54) Protime With Inr (02/06/18 12:54) Partial Thromboplastin Time (02/06/18 12:54) Troponin I (02/06/18 12:54) Ua Culture If Indicated (02/06/18 12:54) Influenza A And B Antigens (02/06/18 12:54) Sputum Culture (02/06/18 12:54) Chest Pa/Lat (2 View) (02/06/18 12:54) Orthostatic Vital Signs (Adult (02/06/18 12:54) Albuterol/Ipra Inhalation Soln (Duoneb I (02/06/18 13:00) Svn Small Volume Nebulizer (02/06/18 12:59) Saline Lock/Iv-Start (02/06/18 15:29) Ns Iv 1000 Ml (Sodium Chloride 0.9%) (02/06/18 15:29) Cefepime Injection (Maxipime Injection) (02/06/18 15:30) Blood Culture (02/06/18 15:37) Lactic Acid Analyzer (02/06/18 15:37) Hydralazine Injection (Apresoline Inject (02/06/18 15:45) Medications Given in ED Current Medications Medications Dose Ordered Sig/Dee Route Start Time Stop Time Status Last Admin Dose Admin Albuterol/ Ipratropium 3 ml ONCE ONCE INH 02/06/18 13:00 02/06/18 13:01 DC 02/06/18 13:53 3 ML Cefepime HCl 2000 mg/Sodium Chloride 50 ml @ 100 mls/hr ONCE ONCE IV 02/06/18 15:30 02/06/18 15:59 02/06/18 15:39 100 MLS/HR Vital Signs/I&O 02/06/18 02/06/18 13:14 13:54 Temp 96.1 Pulse 54 Resp 22 B/P (MAP) 181/105 (130) Pulse Ox 97 100 O2 Delivery Nasal Cannula Nasal Cannula O2 Flow Rate 2.00 2.00 Capillary Refill : Progress Note #1: Time: 13:06 Progress Note Vital signs do not reveal the patient to be acutely septic. There is no record of him being on a blood thinner. The patient's oxygen sats however did get down to 86% while talking on room air. He does not use baseline oxygen. On 2 L he came up to 100%. Because of his breath sounds being adventitious I would suspect a pneumonia versus less likely fluid overload. There is no other clinical evidence of fluid overload and he did recently have 2.2 L removed on dialysis this morning. We'll get an influenza swab as well. EKG and troponin. Echocardiogram 2017: Moderate left ventricular hypertrophy with EF of 50%. Mild aortic, mitral, tricuspid and pulmonary regurgitation. NIH to effectively 0. I suspect his difficulty articulating himself and being wobbly on his feet has probably more to do with his hypoxia and pulmonary process. Progress Note #2: Time: 15:36 Progress Note Patient's blood pressures crept up since he's been here to 200/100. In the past hydralazine's worked well for him so we will give him a dose of that. We will give him some fluids 500 an hour 1 L until he transports to [facility] for inpatient treatment of his acute respiratory distress with hypoxia. We'll go ahead and cover him with some cefepime for potential pneumonia. Influenza was negative. ECG Initial ECG Impression Date: Feb 06, 2018 Initial ECG Impression Time: 12:59 Initial ECG Rate: 58 Initial ECG Rhythm: Normal Sinus Initial ECG Intervals: QT (507) Initial ECG Impression: Normal, Nonspecific Changes Initial ECG Comparisson: Unchanged Comment No ST elevation or depression. Diagnostic Imaging Diagonstic Imaging: Xray Plain Films/CT/US/NM/MRI: chest (2v) Comments [email or web address] [place], [place] NAME: STEFANO ZAVALETA [facility] REC#: [id number] PT STATUS: REG ER : 1950 PHYSICIAN: BRUCE LIMA MD ADMIT DATE: 02/06/18/ER Draft Date of Exam:02/06/18 CHEST PA/LAT (2 VIEW) INDICATION: Weakness, history of thyroid cancer. PA and lateral chest obtained at 01:55 p.m. and compared with 01/29/2018. Heart is borderline enlarged. Dialysis catheter is unchanged. Port-A-Cath is unchanged. There is no focal infiltrate, pneumothorax, or pleural fluid. There are chronic-appearing increased basilar markings. IMPRESSION: No acute process in the chest and no change from 01/29/2018. Dictated on workstation # [id number] Dict: 02/06/18 1338 Trans: 02/06/18 1343 [id number] Interpreted by: GISSEL COPE MD Electronically signed by: Reviewed: Reviewed by Me Departure Impression Primary Impression: Acute respiratory failure with hypoxia Additional Impressions: Pneumonia Qualified Codes: J18.9 - Pneumonia, unspecified organism ESRD (end stage renal disease) on dialysis Disposition: XF SHT-TRM HOSP Condition: Stable Transfer Time Spoke to Accepting Phy: 15:30 Transfer Progress Notes Talk to Dr. Tomas internal medicine at [place], [place] and he agrees to accept the patient. Transfer Facility: [place], [place]. Method of Transfer: EMS Departure-Patient Inst. Referrals: SEBASTIAN CALDERON MD (PCP/Family) Primary Care Physician Copy Copies To 1: SEBASTIAN CALDERON MD, TITUS J Feb 06, 2018 13:07
--- OUTSIDE RECORDS SUMMARY | 2018-02-06 13:10 | XMS REPORT | CCD ---
Author Author Catherine Zelaya Organization Catherine Zelaya MD, [facility] Address [address] [place] [address] Phone Care Team Providers Care Assembler Erector Name Role Phone Catherine Zelaya PP Unavailable CCM Unavailable Summary Purpose Interface Exchange Insurance Providers Payer name Policy type / Coverage type Covered libertarian ID Effective Begin Date Effective End Date WPS Medicare Part B [id number] 2014 Unknown [facility] [id number] 2014 Unknown Family history Son Diagnosis Age [...] Unknown House 10/24/[address]: 536498300 Nonsmoker 10/24/[address]: 869759928 Never drinks alcohol 10/24/2010 Has the patient [...] ICD-9: 780.2 Active 09/17/2012 Unknown Fall at retirement ICD-9: E888.9 Active 06/15/2012 Unknown Orthostatic hypotension [...] Syncope ICD-9: 780.2 09/17/2012 Active Fall at retirement ICD-9: E888.9 06/15/2012 Active Orthostatic hypotension ICD-9: [...] Start Date Stop Date Status Fill Instructions Tessalon 200 mg capsule RxNorm: 846876 1 Capsule(s) PO TID PRN TAKE 1 CAPSULE BY MOUTH THREE TIMES DAILY NEEDED 01/29/2018 No Stop Date Active Augmentin 500 mg-125 mg tablet RxNorm: 447631 1 Tablet(s) PO BID 01/29/2018 02/04/2018 Active Kenalog 40 mg/mL suspension for injection RxNorm: 1553277 1 Milliliter(s) Inj 01/29/2018 01/29/2018 Inactive hydrocodone 10 mg-acetaminophen 325 mg tablet RxNorm: 029473 1 Tablet(s) PO Q6 PRN 01/29/2018 No Stop Date Active promethazine 25 mg tablet RxNorm: 591246 TAKE 1 TABLET BY MOUTH EVERY 6 HOURS NEEDED 01/19/2018 No Stop Date Active Tessalon 200 mg capsule RxNorm: 902968 TAKE 1 CAPSULE BY MOUTH THREE TIMES DAILY NEEDED 01/19/2018 01/28/2018 Inactive clonidine HCl 0.1 mg tablet RxNorm: 522730 1 Tablet(s) PO PRN systolic blood pressure at or above 170 do not take more than twice a day No Stop Date Active 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 40 mg capsule,delayed release RxNorm: 922791 TAKE ONE CAPSULE BY MOUTH TWICE DAILY 12/08/2017 No Stop Date Active hydrocodone 10 mg-acetaminophen 325 mg tablet RxNorm: 166102 1 Tablet(s) PO Q6 PRN 12/08/2017 01/28/2018 Inactive promethazine 25 mg tablet RxNorm: 312520 TAKE 1 TABLET BY MOUTH EVERY 6 HOURS NEEDED 11/17/2017 01/18/2018 Inactive hydrocodone 10 mg-acetaminophen 325 mg tablet RxNorm: 328422 1 Tablet(s) PO Q6 PRN 11/12/2017 12/07/2017 Inactive Tessalon 200 mg capsule RxNorm: 120275 1 Capsule(s) PO TID as needed 11/04/2017 01/18/2018 Inactive Zithromax Z-Bhavesh 250 mg tablet RxNorm: 535858 1 Tablet(s) PO UD 11/04/2017 11/08/2017 Inactive omeprazole 40 mg capsule,delayed release RxNorm: 050113 TAKE ONE CAPSULE BY MOUTH TWICE DAILY 11/03/2017 12/07/2017 Inactive Tessalon 200 mg capsule RxNorm: 119746 1 Capsule(s) PO TID as needed 10/30/2017 11/03/2017 Inactive Tessalon 200 mg capsule RxNorm: 787473 1 Capsule(s) PO TID 10/29/2017 Inactive Xanax 0.5 mg tablet RxNorm: 299936 1 Tablet(s) PO Q6 as needed 10/29/2017 12/27/2017 Inactive hydrocodone 10 mg-acetaminophen 325 mg tablet RxNorm: 565387 1 Tablet(s) PO Q6 PRN 10/15/2017 11/11/2017 Inactive Colace 100 mg capsule RxNorm: 0198958 1 Capsule(s) PO QAM 201711/07/2017 Inactive Xanax 0.5 mg tablet RxNorm: 537782 1 Tablet(s) PO Q6 as needed 10/09/2017 10/28/2017 Inactive hydrocodone 10 mg-acetaminophen 325 mg tablet RxNorm: 286354 1 Tablet(s) PO Q6 PRN 09/10/2017 10/14/2017 Inactive hydrocodone 10 mg-acetaminophen 325 mg tablet RxNorm: 062160 1 Tablet(s) PO Q6 PRN 08/07/2017 09/09/2017 Inactive promethazine 25 mg tablet RxNorm: 904193 Tablet(s) 1 Tablet(s) PO Q6 PRN 1 Tablet( s) PO Q6 PRN 07/11/2017 11/17/2017 Inactive 30 tablets per 30 days hydrocodone 10 mg-acetaminophen 325 mg tablet RxNorm: 896241 1 Tablet(s) PO Q6 PRN 07/04/2017 08/06/2017 Inactive promethazine 25 mg tablet RxNorm: 866646 1 Tablet(s) PO Q6 PRN 1 Tablet(s) PO Q6 PRN 06/16/2017 07/09/2017 Inactive hydrocodone 10 mg-acetaminophen 325 mg tablet RxNorm: 433200 1 Tablet(s) PO Q6 PRN 06/06/2017 07/03/2017 Inactive hydrocodone 7.5 mg-acetaminophen 325 mg tablet RxNorm: 419298 1-2 Tablet(s) PO Q6 as needed 06/06/2017 06/06/2017 Inactive hydrocodone 7.5 mg-acetaminophen 325 mg tablet RxNorm: 760759 1-2 Tablet(s) PO Q6 as needed 05/14/2017 05/28/2017 Inactive Synthroid 300 mcg tablet RxNorm: 640643 1 Tablet(s) PO daily Take with 50mcg tablet to equal 350mcg 05/08/20172018 Active Synthroid 50 mcg tablet RxNorm: 424090 1 Tablet(s) PO daily take with 300mcg tablet 05/08/2017 05/02/2018 Active Take with 300mcg tablet Zofran 4 mg tablet RxNorm: 489808 Tablet(s) TAKE ONE TABLET BY MOUTH THREE TIMES DAILY NEEDED 05/01/2017 No Stop Date Active Xanax 0.5 mg tablet RxNorm: 871201 1 Tablet(s) PO BID PRN as needed 05/01/2017 06/29/2017 Inactive promethazine 25 mg tablet RxNorm: 161420 1 Tablet(s) PO Q6 PRN 1 Tablet(s) PO Q6 PRN 05/01/2017 05/30/2017 Inactive omeprazole 40 mg capsule,delayed release RxNorm: 747475 TAKE ONE CAPSULE BY MOUTH ONCE DAILY 04/21/2017 No Stop Date Active hydrocodone 7.5 mg-acetaminophen 325 mg tablet RxNorm: 263920 1-2 Tablet(s) PO Q6 as needed 04/18/2017 05/02/2017 Inactive promethazine 25 mg tablet RxNorm: 321839 1 Tablet(s) PO Q6 PRN 1 Tablet(s) PO Q6 PRN 04/08/2017 04/30/2017 Inactive hydrocodone 7.5 mg-acetaminophen 325 mg tablet RxNorm: 071025 1-2 Tablet(s) PO Q6 as needed 03/19/2017 04/02/2017 Inactive Xanax 0.5 mg tablet RxNorm: 600150 1 Tablet(s) PO Q6 PRN as needed 03/19/2017 04/02/2017 Inactive Xanax 0.5 mg tablet RxNorm: 525125 1 Tablet(s) PO Q6 PRN as needed 02/28/2017 03/14/2017 Inactive promethazine 25 mg tablet RxNorm: 888432 1 Tablet(s) PO Q6 PRN 1 Tablet(s) PO Q6 PRN 02/18/2017 03/19/2017 Inactive Xanax 0.5 mg tablet RxNorm: 227691 1 Tablet(s) PO Q6 PRN as needed 02/18/2017 02/27/2017 Inactive Zofran 4 mg tablet RxNorm: 592448 TAKE ONE TABLET BY MOUTH THREE TIMES DAILY NEEDED 02/18/2017 04/30/2017 Inactive Synthroid 300 mcg tablet RxNorm: 474240 1 Tablet(s) PO daily take with 50mcg tablet 02/11/2017 08/09/2017 Inactive Take with 50mcg tablet Synthroid 50 mcg tablet RxNorm: 773323 1 Tablet(s) PO daily take with 300mcg tablet 02/11/2017 05/07/2017 Inactive Take with 300mcg tablet hydrocodone 7.5 mg-acetaminophen 325 mg tablet RxNorm: 419167 1-2 Tablet(s) PO Q6 as needed 02/11/2017 02/25/2017 Inactive promethazine 25 mg tablet RxNorm: 492008 1 Tablet(s) PO Q6 PRN 1 Tablet(s) PO Q6 PRN 01/14/2017 01/23/2017 Inactive promethazine 25 mg tablet RxNorm: 807468 1 Tablet(s) PO Q6 PRN 12/17/2016 12/21/2016 Inactive promethazine 25 mg tablet RxNorm: 928235 1 Tablet(s) PO Q6 PRN 12/02/2016 12/06/2016 Inactive promethazine 25 mg tablet RxNorm: 076318 1 Tablet(s) PO Q6 PRN 11/15/2016 11/19/2016 Inactive losartan 25 mg tablet RxNorm: 964598 1 Tablet(s) PO BID 201610/08/2017 Inactive Xanax 0.5 mg tablet RxNorm: 937699 1 Tablet(s) PO Q6 PRN as needed 11/11/2016 12/24/2016 Inactive omeprazole 40 mg capsule,delayed release RxNorm: 873274 1 Capsule(s) PO daily 10/15/2016 04/12/2017 Inactive Synthroid 300 mcg tablet RxNorm: 816853 1 Tablet(s) PO daily 05/07/2017 Inactive omeprazole 40 mg capsule,delayed release RxNorm: 161392 1 Capsule(s) PO BID 10/11/2016 10/14/2016 Inactive hydrocodone 7.5 mg-acetaminophen 325 mg tablet RxNorm: 760541 1-2 Tablet(s) PO Q6 as needed 10/11/2016 10/25/2016 Inactive promethazine 25 mg tablet RxNorm: 623578 1 Tablet(s) PO Q6 PRN 10/11/2016 11/14/2016 Inactive Xanax 0.5 mg tablet RxNorm: 684376 1 Tablet(s) PO Q6 PRN as needed 10/11/2016 11/10/2016 Inactive hydrocodone 7.5 mg-acetaminophen 325 mg tablet RxNorm: 103991 1-2 Tablet(s) PO Q6 as needed 09/10/2016 09/24/2016 Inactive Xanax 0.5 mg tablet RxNorm: 309136 1 Tablet(s) PO Q6 PRN as needed 08/22/2016 10/05/2016 Inactive carvedilol 3.125 mg tablet RxNorm: 955898 1 Tablet(s) PO BID 10/08/2017 Inactive carvedilol 3.125 mg tablet RxNorm: 547005 1/2 Tablet(s) PO BID 07/01/2016 07/10/2016 Inactive hydrocodone 7.5 mg-acetaminophen 325 mg tablet RxNorm: 346923 1-2 Tablet(s) PO Q6 as needed 06/19/2016 07/03/2016 Inactive PhosLo 667 mg capsule RxNorm: 584163 1 Capsule(s) PO TID with meals 06/03/2016 07/24/2017 Inactive Synthroid 300 mcg tablet RxNorm: 461196 1 Tablet(s) PO daily 10/10/2016 Inactive lactulose 10 gram/15 mL oral solution RxNorm: 416040 15 Milliliter(s) PO TID 06/03/2016 07/24/2017 Inactive Linzess 145 mcg capsule RxNorm: 5837858 1 Capsule(s) PO daily 05/30/2016 05/29/2016 Inactive Linzess 145 mcg capsule RxNorm: 8264649 1 Capsule(s) PO daily 05/30/2016 07/24/2017 Inactive Xanax 0.5 mg tablet RxNorm: 776916 1 Tablet(s) PO Q6 PRN as needed 05/29/2016 07/12/2016 Inactive Protonix 40 mg tablet,delayed release RxNorm: 028129 Tablet(s) TAKE 1 TABLET BY MOUTH EVERY DAY 05/17/2016 07/24/2017 Inactive Brand name only! Zithromax Z-Bhavesh 250 mg tablet RxNorm: 814564 1 Tablet(s) PO UD 04/23/2016 04/27/2016 Inactive zpack promethazine 25 mg tablet RxNorm: 637989 1 Tablet(s) PO Q6 PRN 04/23/2016 10/10/2016 Inactive Reglan 5 mg tablet RxNorm: 463551 TAKE ONE-HALF TABLET BY MOUTH THREE TIMES DAILY 03/20/2016 07/24/2017 Inactive Xanax 0.5 mg tablet RxNorm: 149108 1 Tablet(s) PO Q6 PRN as needed 03/08/2016 04/21/2016 Inactive Cozaar 25 mg tablet RxNorm: 321149 1 Tablet(s) PO daily 201606/02/2016 Inactive Cozaar 25 mg tablet RxNorm: 511967 1 Tablet(s) PO daily 201602/25/2016 Inactive hydrocodone 7.5 mg-acetaminophen 325 mg tablet RxNorm: 926085 1-2 Tablet(s) PO Q6 as needed 02/20/2016 06/18/2016 Inactive [SAVINGS FOR NON-COVERED DRUGS -- BIN: 130282, PCN: ASPROD1, Group: XXXXX, ID# [id number], Questions: . THIS IS NOT INSURANCE.] Xanax 0.5 mg tablet RxNorm: 806306 1 Tablet(s) PO Q6 PRN as needed 02/07/2016 03/07/2016 Inactive BD Insulin Pen Needle UF Short 31 gauge x 07/02" RxNorm: Miscellaneous 02/02/2016 05/01/2016 Inactive Zofran 4 mg tablet RxNorm: 697755 1 Tablet(s) PO TID PRN 02/17/2017 Inactive Synthroid 300 mcg tablet RxNorm: 759201 1 Tablet(s) PO daily 06/02/2016 Inactive Zofran 4 mg tablet RxNorm: 593951 1 Tablet(s) PO TID PRN 01/07/2016 Inactive polymyxin B sulfate 10,000 unit-trimethoprim 1 mg/mL eye drops RxNorm: 211556 2 Drop(s) OPH TID 11/24/2015 11/23/2015 Inactive polymyxin B sulfate 10,000 unit-trimethoprim 1 mg/mL eye drops RxNorm: 359176 2 Drop(s) OPH TID 11/24/2015 11/30/2015 Inactive Levemir 100 unit/mL subcutaneous solution RxNorm: 475920 15 Unit(s) SQ BID 11/13/2015 11/12/2015 Inactive disp needles as well Levemir 100 unit/mL subcutaneous solution RxNorm: 227605 15 Unit(s) SQ BID 11/13/2015 11/13/2015 Inactive disp needles as well Levemir FlexTouch 100 unit/mL (3 mL) subcutaneous insulin pen RxNorm: 147709 15 Unit(s) SQ BID 11/13/2015 11/23/2015 Inactive hydrocodone 7.5 mg-acetaminophen 325 mg tablet RxNorm: 409654 1-2 Tablet(s) PO Q6 as needed 11/03/2015 02/19/2016 Inactive [SAVINGS FOR NON-COVERED DRUGS -- BIN: 014638, PCN: ASPROD1, Group: XXXXX, ID# [id number], Questions: . THIS IS NOT INSURANCE.] carvedilol 3.125 mg tablet RxNorm: 979454 1/2 Tablet(s) PO BID 10/20/2015 06/02/2016 Inactive Xanax 0.5 mg tablet RxNorm: 905581 1 Tablet(s) PO Q6 PRN as needed 09/27/2015 11/08/2015 Inactive Zofran 4 mg tablet RxNorm: 173218 1 Tablet(s) PO TID PRN 11/201512/07/2015 Inactive hydrocodone 7.5 mg-acetaminophen 325 mg tablet RxNorm: 064991 1-2 Tablet(s) PO Q6 as needed 09/21/2015 11/02/2015 Inactive [SAVINGS FOR NON-COVERED DRUGS -- BIN: 841594, PCN: ASPROD1, Group: XXXXX, ID# [id number], Questions: . THIS IS NOT INSURANCE.] Zofran 4 mg tablet RxNorm: 813434 Tablet(s) 1 TABLET(S) PO Q6 PRN 09/21/2015 09/26/2015 Inactive Phenergan 25 mg/mL injection solution RxNorm: 000336 1 Milliliter(s) Inj 09/19/2015 09/19/2015 Inactive Reglan 5 mg tablet RxNorm: 133551 1/2 Tablet(s) PO TID 201512/17/2015 Inactive Zofran 4 mg tablet RxNorm: 589298 Tablet(s) 1 TABLET(S) PO Q6 PRN 09/07/2015 09/20/2015 Inactive Levaquin 250 mg tablet RxNorm: 643158 1 Tablet(s) PO Q72H 08/1708/26/2015 Inactive Kenalog 40 mg/mL suspension for injection RxNorm: 9601906 Milliliter(s) Inj 08/18/2015 08/18/2015 Inactive Synthroid 300 mcg tablet RxNorm: 980839 1 Tablet(s) PO daily 12/17/2015 Inactive Colace 100 mg capsule RxNorm: 8599737 1 Capsule(s) PO QAM as needed 08/14/2015 07/24/2017 Inactive hydrocodone 7.5 mg-acetaminophen 325 mg tablet RxNorm: 498053 1-2 Tablet(s) PO Q6 as needed 08/08/2015 09/20/2015 Inactive [SAVINGS FOR NON-COVERED DRUGS -- BIN: 424587, PCN: ASPROD1, Group: XXXXX, ID# [id number], Questions: . THIS IS NOT INSURANCE.] Xanax 0.5 mg tablet RxNorm: 298632 1 Tablet(s) PO Q6 PRN as needed 08/08/2015 09/16/2015 Inactive Zofran 4 mg tablet RxNorm: 271520 Tablet(s) 1 TABLET(S) PO Q6 PRN 06/19/2015 09/06/2015 Inactive Xanax 0.5 mg tablet RxNorm: 362973 1 Tablet(s) PO Q6 PRN as needed 06/19/2015 07/28/2015 Inactive colesevelam 625 mg tablet RxNorm: 531206 1 Tablet(s) PO TID before meals. 06/15/2015 06/14/2015 Inactive colesevelam 625 mg tablet RxNorm: 313531 3 Tablet(s) PO BID before meals. 06/15/2015 06/02/2016 Inactive DISREGARD 1 TID ORDER mupirocin 2 % topical ointment RxNorm: 014160 3/4 Application TOP BID 06/15/2015 07/14/2015 Inactive apply to legs twice daily until healed Synthroid 200 mcg tablet RxNorm: 518952 1 Tablet(s) PO daily 08/16/2015 Inactive Xanax 0.5 mg tablet RxNorm: 846280 1 Tablet(s) PO Q6 PRN as needed 05/30/2015 06/18/2015 Inactive hydrocodone 7.5 mg-acetaminophen 325 mg tablet RxNorm: 713193 1-2 Tablet(s) PO Q6 as needed 05/30/2015 08/07/2015 Inactive [SAVINGS FOR NON-COVERED DRUGS -- BIN: 056626, PCN: ASPROD1, Group: XXXXX, ID# [id number], Questions: . THIS IS NOT INSURANCE.] Zofran 4 mg tablet RxNorm: 552234 Tablet(s) 1 TABLET(S) PO Q6 PRN 05/30/2015 06/18/2015 Inactive Synthroid 175 mcg tablet RxNorm: 380188 1 Tablet(s) PO daily 06/14/2015 Inactive Neurontin 100 mg capsule RxNorm: 595796 1 Capsule(s) PO BID 06/02/2016 Inactive Humalog KwikPen 100 unit/mL subcutaneous RxNorm: 8607989 10 Unit(s) SQ daily before meals 05/17/2015 04/22/2016 Inactive Levemir 100 unit/mL subcutaneous solution RxNorm: 294950 15 Unit(s) SQ BID 05/17/2015 11/12/2015 Inactive carvedilol 3.125 mg tablet RxNorm: 813313 1 Tablet(s) PO BID 08/14/2015 Inactive Xanax 0.5 mg tablet RxNorm: 079468 1 Tablet(s) PO Q6 PRN as needed 03/24/2015 05/02/2015 Inactive hydrocodone 7.5 mg-acetaminophen 325 mg tablet RxNorm: 507963 1-2 Tablet(s) PO Q6 as needed 03/24/2015 05/29/2015 Inactive [SAVINGS FOR NON-COVERED DRUGS -- BIN: 149649, PCN: ASPROD1, Group: XXXXX, ID# [id number], Questions: . THIS IS NOT INSURANCE.] Xanax 0.5 mg tablet RxNorm: 241986 1 Tablet(s) PO Q6 PRN as needed 03/22/2015 03/23/2015 Inactive Xanax 0.5 mg tablet RxNorm: 876227 1 Tablet(s) PO Q6 PRN as needed 03/21/2015 03/21/2015 Inactive Zofran 4 mg tablet RxNorm: 713120 Tablet(s) TABLET(S) 1 TABLET(S) PO Q6 PRN 03/20/2015 05/16/2015 Inactive Protonix 40 mg tablet,delayed release RxNorm: 444565 TAKE 1 TABLET BY MOUTH EVERY DAY- DISCONTINUE OMEPRAZOLE 03/13/2015 Inactive hydrocodone 7.5 mg-acetaminophen 325 mg tablet RxNorm: 419853 1-2 Tablet(s) PO Q6 as needed 03/09/2015 03/23/2015 Inactive [SAVINGS FOR NON-COVERED DRUGS -- BIN: 149426, PCN: ASPROD1, Group: XXXXX, ID# [id number], Questions: . THIS IS NOT INSURANCE.] PhosLo 667 mg capsule RxNorm: 089396 2 Capsule(s) PO TID with meals 02/22/2015 05/16/2015 Inactive Protonix 40 mg tablet,delayed release RxNorm: 912602 1 Tablet(s) PO BID for 2 months (Feb and Mar) then 1 po daily thereafter 02/22/2015 03/12/2015 Inactive Bactroban 2 % topical ointment RxNorm: 007999 1 Application TOP BID 02/21/2015 03/06/2015 Inactive apply to open sores on face Zofran 4 mg tablet RxNorm: 398701 TABLET(S) 1 TABLET(S) PO Q6 PRN 02/19/2015 03/19/2015 Inactive Zofran 4 mg tablet RxNorm: 843816 Tablet(s) 1 TABLET(S) PO Q6 PRN 02/16/2015 05/29/2015 Inactive hydrocodone 7.5 mg-acetaminophen 325 mg tablet RxNorm: 601661 1-2 Tablet(s) PO Q6 as needed 02/15/2015 03/08/2015 Inactive [SAVINGS FOR NON-COVERED DRUGS -- BIN: 630856, PCN: ASPROD1, Group: XXXXX, ID# [id number], Questions: . THIS IS NOT INSURANCE.] Xanax 0.5 mg tablet RxNorm: 058661 1 Tablet(s) PO Q6 PRN as needed 02/15/2015 04/14/2015 Inactive carvedilol 6.25 mg tablet RxNorm: 560446 1/2 Tablet(s) PO BID 01/24/2015 04/23/2015 Inactive Levemir 100 unit/mL subcutaneous solution RxNorm: 628719 30 Unit(s) SQ BID 12/16/2014 05/16/2015 Inactive Levemir Flexpen 100 unit/mL (3 mL) solution subcutaneous insulin pen RxNorm: 273443 30 Unit(s) SQ BID doctor to adjust the medications based on his blood glucose readings. 12/16/2014 12/16/2014 Inactive give quantity sufficient Zofran 4 mg tablet RxNorm: 267213 Tablet(s) 1 TABLET(S) PO Q6 PRN 12/16/2014 02/15/2015 Inactive hydrocodone 7.5 mg-acetaminophen 325 mg tablet RxNorm: 675851 1-2 Tablet(s) PO Q6 as needed 12/12/2014 02/14/2015 Inactive [SAVINGS FOR NON-COVERED DRUGS -- BIN: 357381, PCN: ASPROD1, Group: XXXXX, ID# [id number], Questions: . THIS IS NOT INSURANCE.] Neurontin 100 mg capsule RxNorm: 934964 1 Capsule(s) PO TID 07/201412/15/2014 Inactive BRILINTA 90 mg tablet RxNorm: 9726317 1 Tablet(s) PO BID 201405/16/2015 Inactive Protonix 40 mg tablet,delayed release RxNorm: 690939 1 Tablet(s) PO every other day as needed for heartburn 11/22/201405/2014 Inactive Zofran 4 mg tablet RxNorm: 427865 1 TABLET(S) PO Q6 PRN 11/0412/15/2014 Inactive Coreg 3.125 mg tablet RxNorm: 258436 1/2 Tablet(s) PO BID 201401/23/2015 Inactive Zofran 4 mg tablet RxNorm: 580039 1 TABLET(S) PO Q6 PRN 10/0611/03/2014 Inactive hydrocodone 7.5 mg-acetaminophen 325 mg tablet RxNorm: 259669 1-2 Tablet(s) PO Q6 as needed 10/05/2014 12/11/2014 Inactive [SAVINGS FOR NON-COVERED DRUGS -- BIN: 024308, PCN: ASPROD1, Group: XXXXX, ID# [id number], Questions: . THIS IS NOT INSURANCE.] Xanax 0.5 mg tablet RxNorm: 232279 1 Tablet(s) PO Q6 PRN as needed 10/05/2014 11/21/2014 Inactive Zofran 4 mg tablet RxNorm: 470799 1 TABLET(S) PO Q6 PRN 09/1310/05/2014 Inactive Levemir Flexpen 100 unit/mL (3 mL) solution subcutaneous insulin pen RxNorm: 530139 30 Unit(s) SQ BID doctor to adjust the medications based on his blood glucose readings. 09/01/2014 08/31/2014 Inactive give quantity sufficient Levemir Flexpen 100 unit/mL (3 mL) solution subcutaneous insulin pen RxNorm: 394021 30 Unit(s) SQ BID doctor to adjust the medications based on his blood glucose readings. 09/01/2014 12/15/2014 Inactive give quantity sufficient Combivent Respimat 20 mcg-100 mcg/actuation solution for inhalation RxNorm: 4543993 1 inhale INH Q6 as needed 08/26/2014 11/21/2014 Inactive Zofran 4 mg tablet RxNorm: 391956 1 TABLET(S) PO Q6 PRN 08/25 No Stop Date Active Spiriva with HandiHaler 18 mcg & inhalation capsules RxNorm: 917351 1 Capsule(s) INH daily 08/16/2014 05/16/2015 Inactive Flomax 0.4 mg capsule RxNorm: 844710 1 Capsule(s) PO QHS 201411/21/2014 Inactive Xanax 0.5 mg tablet RxNorm: 481309 1 Tablet(s) PO Q6 PRN as needed 08/02/2014 09/10/2014 Inactive Zithromax Z-Bhavesh 250 mg tablet RxNorm: 249781 1 Tablet(s) PO UD 07/26/2014 07/30/2014 Inactive zpack albuterol sulfate 2.5 mg/3 mL (0.083 %) solution for nebulization RxNorm: 907480 3 Milliliter(s) INH Q8 07/26/2014 Inactive q 8 hr and prn prednisone 20 mg tablet RxNorm: 888578 1 Tablet(s) PO UD 201405/16/2015 Inactive 3 tab x 4 days, 2 tabs x 4 days 1 tab daily x 4 days ,1/2 tab daily x 4 days then 1/2 tab every other day x 4 doses then stop Coreg 12.5 mg tablet RxNorm: 551878 1/2 Tablet(s) PO BID with meals 07/19/2014 10/26/2014 Inactive d/c previous order for 12.5mg BID-needs to be 1/2 tab BID Zofran 4 mg tablet RxNorm: 813504 1 TABLET(S) PO Q6 PRN 06/2308/24/2014 Inactive hydrocodone 7.5 mg-acetaminophen 325 mg tablet RxNorm: 648915 1-2 Tablet(s) PO Q6 as needed 06/17/2014 10/04/2014 Inactive [SAVINGS FOR NON-COVERED DRUGS -- BIN: 785641, PCN: ASPROD1, Group: XXXXX, ID# [id number], Questions: . THIS IS NOT INSURANCE.] hydrocodone 5 mg-acetaminophen 325 mg tablet RxNorm: 716879 1 Tablet(s) PO Q6 PRN as needed 05/19/2014 06/16/2014 Inactive Zofran 4 mg tablet RxNorm: 610742 1 TABLET(S) PO Q6 PRN 05/1906/22/2014 Inactive Neurontin 100 mg capsule RxNorm: 749521 1 Capsule(s) PO TID 11/05/2014 Inactive Zofran 4 mg tablet RxNorm: 667731 1 TABLET(S) PO Q6 PRN 04/28 No Stop Date Active levothyroxine 175 mcg tablet RxNorm: 403223 1=456gmm Tablet(s) PO daily 04/20/2014 04/14/2015 Inactive hydrocodone 5 mg-acetaminophen 325 mg tablet RxNorm: 319165 1 Tablet(s) PO Q6 PRN as needed 04/11/2014 05/18/2014 Inactive Xanax 0.5 mg tablet RxNorm: 355815 1 Tablet(s) PO Q6 PRN as needed 03/21/2014 04/27/2014 Inactive Humalog KwikPen 100 unit/mL subcutaneous RxNorm: 6100915 5 Unit(s) SQ TID with meals 03/14/2014 07/11/2014 Inactive Neurontin 100 mg capsule RxNorm: 375402 1 Capsule(s) TID 201405/09/2014 Inactive Neurontin 100 mg capsule RxNorm: 518995 1 Capsule(s) TID 1 CAPSULE(S) PO HS 03/14/2014 03/13/2014 Inactive Phenergan with Codeine Syrup RxNorm: 5 -10 Milliliter(s) PO Q6 PRN as needed 03/01/2014 03/06/2014 Inactive Zofran 4 mg tablet RxNorm: 393784 1 TABLET(S) PO Q6 PRN 02/2804/27/2014 Inactive metoclopramide 5 mg tablet RxNorm: 265384 1 Tablet(s) PO BID 11/21/2014 Inactive [SAVINGS FOR UNINSURED PATIENTS -- BIN:576432, PCN: ASPROD1, Group: [id number] , ID# [id number], Process claim through mojio, for questions: . THIS IS NOT INSURANCE.] Apidra 100 unit/mL subcutaneous solution RxNorm: 397277 1 dose SQ UD 10 units SQ with breakfast, 10 units SQ with lunch, 10 units SQ with supper l 02/21/2014 03/13/2014 Inactive he does not need this filled, this is just fyi Zofran 4 mg tablet RxNorm: 537095 1 Tablet(s) PO Q6 PRN 02/07 No Stop Date Active amlodipine 5 mg tablet RxNorm: 992178 1 Tablet(s) PO daily 09/04/2014 Inactive Zithromax Z-Bhavesh 250 mg tablet RxNorm: 855394 1 Tablet(s) PO 02/20/2014 Inactive zpak Neurontin 100 mg capsule RxNorm: 763964 1 CAPSULE(S) PO HS 09/201303/13/2014 Inactive Carafate 1 gram tablet RxNorm: 294535 1 Tablet(s) PO QID 201301/19/2014 Inactive Instruct pt to slurry pillx1 month Carafate 1 gram tablet RxNorm: 941831 1 Tablet(s) PO QID 201302/18/2014 Inactive Instruct pt to slurry pillx1 month Zofran 4 mg tablet RxNorm: 313755 1 Tablet(s) PO Q6 PRN 01/1802/06/2014 Inactive hydrocodone 5 mg-acetaminophen 325 mg tablet RxNorm: 896723 1 Tablet(s) PO Q6 PRN as needed 01/18/2014 04/10/2014 Inactive Zofran 4 mg tablet RxNorm: 549449 1 TAB(S) PO Q6 HRS 2013 No Stop Date Active Cymbalta 30 mg capsule,delayed release RxNorm: 027119 Capsule(s) PO daily TAKE 1 CAPSULE BY MOUTH EVERY DAY 12/06/201306/2014 Inactive [SAVINGS FOR UNINSURED PATIENTS -- BIN:351257, PCN: ASPROD1, Group: [id number], ID# [id number], Process claim through mojio, for questions: . THIS IS NOT INSURANCE.] Neurontin 100 mg capsule RxNorm: 568058 1 CAPSULE(S) PO HS 06/201301/19/2014 Inactive omeprazole 20 mg tablet,delayed release RxNorm: 386833 1 Tablet(s) PO daily 10/22/2013 05/19/2014 Inactive [SAVINGS FOR UNINSURED PATIENTS -- BIN:397310, PCN: [email or web address], Group: [id number], ID# [id number], Process claim through mojio, for questions: . THIS IS NOT INSURANCE.] omeprazole 20 mg tablet,delayed release RxNorm: 717734 1 Tablet(s) PO daily 10/22/2013 10/21/2013 Inactive levothyroxine 300 mcg tablet RxNorm: 280040 1 Tablet(s) PO daily 10/20/2013 04/19/2014 Inactive Cymbalta 60 mg capsule,delayed release RxNorm: 257857 TAKE 1 CAPSULE BY MOUTH EVERY DAY 09/28/2013 12/05/2013 Inactive Apidra 100 unit/mL subcutaneous solution RxNorm: 391165 1 dose SQ UD 15 units SQ with breakfast, 10 units SQ with lunch, 15 units SQ with supper l 09/09/2013 02/20/2014 Inactive he does not need this filled, this is just fyi Levemir Flexpen 100 unit/mL (3 mL) solution subcutaneous insulin pen RxNorm: 960929 20 Unit(s) SQ BID doctor to adjust the medications based on his blood glucose readings. 09/09/2013 03/07/2014 Inactive give quantity sufficient, pt does not need a refill, this is just fyi Synthroid 300 mcg tablet RxNorm: 937365 1 Tablet(s) PO daily 08/19/2014 Inactive Synthroid 25 mcg tablet RxNorm: 403364 1 Tablet(s) PO daily TAKE WITH THE 300MCG TAB TO EQUAL 325MCG 08/25/2013 10/19/2013 Inactive Humulin R 100 unit/mL injection solution RxNorm: 794289 Unit(s) Inj 08/23/2013 03/13/2014 Inactive sliding scale a Bactrim DS 800 mg-160 mg tablet RxNorm: 120871 1 Tablet(s) PO BID 08/19/2013 08/18/2013 Inactive please give him a probiotic to take while one antibiotic acyclovir 800 mg tablet RxNorm: 973671 1 Tablet(s) PO TID 08/1908/25/2013 Inactive Bactrim DS 800 mg-160 mg tablet RxNorm: 989711 1 Tablet(s) PO BID 08/19/2013 08/22/2013 Inactive please give him a probiotic to take while one antibiotic Apidra 100 unit/mL subcutaneous solution RxNorm: 740552 15 Unit(s) SQ BID l 08/02/2013 09/08/2013 Inactive Levemir Flexpen 100 unit/mL (3 mL) solution subcutaneous insulin pen RxNorm: 239214 20 Unit(s) SQ BID doctor to adjust the medications based on his blood glucose readings. 08/02/2013 09/08/2013 Inactive give quantity sufficient Apidra 100 unit/mL subcutaneous solution RxNorm: 489867 15 Unit(s) SQ AC 10 units with meals 08/02/2013 08/01/2013 Inactive Levemir Flexpen 100 unit/mL (3 mL) solution subcutaneous insulin pen RxNorm: 471921 35 Unit(s) SQ BID doctor to adjust the medications based on his blood glucose readings. 07/01/2013 08/01/2013 Inactive give quantity sufficient Apidra 100 unit/mL subcutaneous solution RxNorm: 525085 15 Unit(s) SQ AC 10 units with meals 07/01/2013 07/30/2013 Inactive Levemir Flexpen 100 unit/mL (3 mL) solution subcutaneous insulin pen RxNorm: 875015 30 Unit(s) SQ BID doctor to adjust the medications based on his blood glucose readings. 06/21/2013 06/30/2013 Inactive give quantity sufficient Apidra 100 unit/mL subcutaneous solution RxNorm: 788217 10 Unit(s) SQ AC 10 units with meals 06/21/2013 06/30/2013 Inactive Accu-Chek FastClix RxNorm: 1 Miscellaneous TID 06/03/2013 05/16/2015 Inactive Accu-Chek FastClix RxNorm: 1 Miscellaneous TID 06/03/2013 06/02/2013 Inactive albuterol sulfate 2.5 mg/3 mL (0.083 %) solution for nebulization RxNorm: 143610 1 Milliliter(s) INH Q8 06/01/2013 Inactive q 8 hr and prn Synthroid 25 mcg tablet RxNorm: 414152 1 Tablet(s) PO BID TAKE WITH THE 300MCG TAB TO EQUAL 325MCG 04/30/2013 04/29/2013 Inactive Synthroid 300 mcg tablet RxNorm: 523678 1 Tablet(s) PO daily 08/24/2013 Inactive Synthroid 25 mcg tablet RxNorm: 231414 1 Tablet(s) PO daily TAKE WITH THE 300MCG TAB TO EQUAL 325MCG 04/30/2013 08/24/2013 Inactive BD Insulin Pen Needle UF Short 31 X 5/16" RxNorm: Miscellaneous 04/30/2013 07/28/2013 Inactive Neurontin 100 mg capsule RxNorm: 887997 1 Capsule(s) PO HS 07/27/2013 Inactive Levemir Flexpen 100 unit/mL (3 mL) solution subcutaneous insulin pen RxNorm: 196631 115 Unit(s) SQ BID 03/29/20132013 Inactive give quantity sufficient hydrocodone 5 mg-acetaminophen 325 mg tablet RxNorm: 122260 1 Tablet(s) PO Q6 PRN 03/15/2013 03/14/2013 Inactive hydrocodone 5 mg-acetaminophen 325 mg tablet RxNorm: 443160 1 Tablet(s) PO Q6 PRN 03/15/2013 No Stop Date Active Xanax 0.5 mg tablet RxNorm: 183944 1 Tablet(s) PO Q6 PRN 03/0905/06/2013 Inactive amlodipine 5 mg tablet RxNorm: 096724 1 Tablet(s) PO daily 10/04/2013 Inactive BD Insulin Pen Needle UF Short 31 X 07/02" RxNorm: Miscellaneous 02/25/2013 04/29/2013 Inactive clindamycin 150 mg capsule RxNorm: 837573 1 Capsule(s) PO QID 12/11/2012 12/17/2012 Inactive lisinopril 5 mg tablet RxNorm: 749256 1 Tablet(s) PO daily 09/201209/08/2013 Inactive Levemir Flexpen 100 unit/mL (3 mL) solution subcutaneous insulin pen RxNorm: 046510 110 Unit(s) SQ BID 11/24/20122013 Inactive give quantity sufficient Influenza Virus Vaccine 0.5 mL RxNorm: IM 11/10/2012 11/10/2012 Inactive FreeStyle Lite Strips RxNorm: 1 Miscellaneous 10/13/2012 05/16/2015 Inactive please give lancets also using up to seven dailydx 250.03 doxycycline hyclate 100 mg tablet RxNorm: 996875 1 Tablet(s) PO BID 10/13/2012 10/19/2012 Inactive Phenergan with Codeine Syrup RxNorm: 5 Milliliter(s) PO Q6 PRN 09/04/2012 09/24/2012 Inactive Zithromax Z-Bhavesh 250 mg tablet RxNorm: 962422 Tablet(s) PO 09/0211/23/2012 Inactive zpak Synthroid 300 mcg tablet RxNorm: 257403 1 Tablet(s) PO daily 04/29/2013 Inactive Levemir Flexpen 100 unit/mL (3 mL) solution subcutaneous insulin Pen RxNorm: 792368 120 units am, 100 units pm Unit(s) SQ QAM 08/25/2012 09/23/2012 Inactive disregard 1st RX-I increased the dose Ultram 50 mg tablet RxNorm: 617950 1 Tablet(s) PO Q4 PRN 08/1211/21/2014 Inactive Cymbalta 60 mg capsule,delayed release RxNorm: 252658 Capsule(s) PO TAKE 1 CAPSULE BY MOUTH EVERY DAY 08/11/201212/2013 Inactive Apidra SoloStar 100 unit/mL Sub-Q Insulin Pen RxNorm: 996959 60 Unit Dose SQ QAM 06/25/2012 08/24/2012 Inactive Levemir Flexpen 100 unit/mL (3 mL) Sub-Q Insulin Pen RxNorm: 711207 100 Unit(s) SQ QAM 06/25/2012 07/24/2012 Inactive disregard 1st RX-I increased the dose Synthroid 300 mcg tablet RxNorm: 144081 total 325mcg daily Tablet(s) PO daily 06/23/2012 08/24/2012 Inactive Apidra SoloStar 100 unit/mL Sub-Q Insulin Pen RxNorm: 031938 45 Unit Dose SQ TID 55 units with meals 05/12/2012 05/11/2012 Inactive Levemir Flexpen 100 unit/mL (3 mL) Sub-Q Insulin Pen RxNorm: 396537 140 Unit(s) SQ as doctor directed 90 units in the morning and 90 units at bedtime 05/12/2012 06/24/2012 Inactive disregard 1st RX-I increased the dose Apidra SoloStar 100 unit/mL Sub-Q Insulin Pen RxNorm: 313145 55 Unit Dose SQ TID 55 units with meals 05/12/2012 06/24/2012 Inactive Synthroid 200 mcg tablet RxNorm: 852252 1 Tablet(s) PO daily this is in addition to 75mcg for total of 275mcg 03/18/2012 Inactive this is in addition to 75mcg for total of 275mcgname brand synthroid only Synthroid 75 mcg tablet RxNorm: 675441 1 Tablet(s) PO take with 200mcg tablet to equal 275mcg daily 03/18/2012 05/05/2012 Inactive Ranexa 500 mg tablet,extended release RxNorm: 319181 Tablet(s) PO TAKE 1 TABLET BY MOUTH TWICE DAILY 02/19/20122013 Inactive Synthroid 50 mcg tablet RxNorm: 995107 1 Tablet(s) PO daily 03/17/2012 Inactive this is in addition to 200mcg tab for total of 250mcg dailyname brand synthroid only Synthroid 200 mcg tablet RxNorm: 903728 1 Tablet(s) PO daily 02/05/2012 Inactive this is in addition to 50mcg for total of 250mcg Synthroid 200 mcg tablet RxNorm: 513543 1 Tablet(s) PO daily 03/17/2012 Inactive this is in addition to 50mcg for total of 250mcgname brand synthroid only Ranexa 500 mg tablet,extended release RxNorm: 195401 Tablet(s) PO TAKE 1 TABLET BY MOUTH TWICE DAILY 01/20/20122013 Inactive Levemir Flexpen 100 unit/mL (3 mL) Sub-Q Insulin Pen RxNorm: 168621 140 Unit(s) SQ as doctor directed 55 units in the morning and 85 units at bedtime 01/02/2012 05/11/2012 Inactive disregard 1st RX-I increased the dose Apidra SoloStar 100 unit/mL Sub-Q Insulin Pen RxNorm: 249085 45 Unit Dose SQ TID 45 units with meals 01/02/2012 03/31/2012 Inactive Ranexa 500 mg tablet,extended release RxNorm: 013349 Tablet(s) PO 12/19/2011 08/17/2013 Inactive TAKE 1 TABLET BY MOUTH TWICE DAILY glipizide 10 mg tablet RxNorm: 549126 Tablet(s) PO 12/16/2011 08/01/2013 Inactive TAKE 1 TABLET BY MOUTH EVERY DAY levothyroxine 200 mcg tablet RxNorm: 982953 Tablet(s) PO 201102/05/2012 Inactive TAKE 1 TABLET BY MOUTH EVERY DAY Apidra SoloStar 100 unit/mL Sub-Q Insulin Pen RxNorm: 295718 35 Unit Dose SQ TID with meals 12/02/2011 01/01/2012 Inactive Ranexa 500 mg tablet,extended release RxNorm: 747837 Tablet(s) PO 11/22/2011 08/24/2013 Inactive TAKE 1 TABLET BY MOUTH TWICE DAILY Apidra SoloStar 100 unit/mL Sub-Q Insulin Pen RxNorm: 176192 30 Unit Dose SQ TID with meals 11/21/2011 12/01/2011 Inactive Levemir Flexpen 100 unit/mL (3 mL) Sub-Q Insulin Pen RxNorm: 582870 100 Unit(s) SQ as doctor directed 40 units in the morning and 75units at bedtime 11/21/2011 11/20/2011 Inactive nystatin 100,000 unit/mL Oral Susp RxNorm: 363970 6 Milliliter(s) PO QID 11/21/2011 11/30/2011 Inactive Levemir Flexpen 100 unit/mL (3 mL) Sub-Q Insulin Pen RxNorm: 756204 100 Unit(s) SQ as doctor directed 45 units in the morning and 75units at bedtime 11/21/2011 01/01/2012 Inactive disregard 1st RX-I increased the dose Levemir Flexpen 100 unit/mL (3 mL) Sub-Q Insulin Pen RxNorm: 099526 100 Unit(s) SQ as doctor directed 40 units in the morning and 75units at bedtime 10/24/2011 11/20/2011 Inactive Ranexa 500 mg tablet,extended release RxNorm: 538284 Tablet(s) PO 10/22/2011 08/25/2013 Inactive TAKE 1 TABLET BY MOUTH TWICE DAILY Ranexa 500 mg tablet,extended release RxNorm: 838938 Tablet(s) PO 09/23/2011 08/17/2013 Inactive TAKE 1 TABLET BY MOUTH TWICE DAILY glipizide 10 mg tablet RxNorm: 716297 Tablet(s) PO 09/20/2011 07/31/2013 Inactive TAKE 1 TABLET BY MOUTH EVERY DAY levothyroxine 200 mcg tablet RxNorm: 810443 Tablet(s) PO 201105/05/2012 Inactive TAKE 1 TABLET BY MOUTH EVERY DAY Apidra SoloStar 100 unit/mL Sub-Q Insulin Pen RxNorm: 832331 25 Unit Dose SQ TID with meals 09/05/2011 11/20/2011 Inactive Apidra SoloStar 100 unit/mL Sub-Q Insulin Pen RxNorm: 804396 20 Unit Dose SQ TID with meals 09/05/2011 09/04/2011 Inactive Levemir Flexpen 100 unit/mL (3 mL) Sub-Q Insulin Pen RxNorm: 144616 100 Unit(s) SQ as doctor directed 30 units in the morning and 70units at bedtime 09/05/2011 10/23/2011 Inactive Ranexa 500 mg tablet,extended release RxNorm: 817874 Tablet(s) PO 08/26/2011 09/22/2011 Inactive TAKE 1 TABLET BY MOUTH TWICE DAILY Levemir Flexpen 100 unit/mL (3 mL) Sub-Q Insulin Pen RxNorm: 398464 90 Unit(s) SQ as doctor directed 25 units in the morning and 65 units at bedtime 08/26/2011 09/04/2011 Inactive FreeStyle Lancets RxNorm: 1 test Miscellaneous TID 201106/18/2014 Inactive dispense quantity sufficient for three times daily testing Apidra SoloStar 100 unit/mL Sub-Q Insulin Pen RxNorm: 031966 20 Unit Dose SQ TID with meals 07/05/2011 09/04/2011 Inactive Levemir Flexpen 100 unit/mL (3 mL) Sub-Q Insulin Pen RxNorm: 412093 90 Unit(s) SQ as doctor directed 25 units in the morning and 65 units at bedtime 07/05/2011 08/03/2011 Inactive Levemir Flexpen 100 unit/mL (3 mL) Sub-Q Insulin Pen RxNorm: 970972 90 Unit(s) SQ as doctor directed 25 units in the morning and 65 units at bedtime 06/24/2011 07/04/2011 Inactive Apidra SoloStar 100 unit/mL Sub-Q Insulin Pen RxNorm: 892270 15 Unit Dose SQ TID with meals 06/24/2011 06/23/2011 Inactive Apidra SoloStar 100 unit/mL Sub-Q Insulin Pen RxNorm: 775340 20 Unit Dose SQ TID with meals 06/24/2011 07/04/2011 Inactive metoprolol succinate ER 25 mg 24 hr Tab RxNorm: 247680 1 Tablet(s) PO BID 06/24/2011 07/19/2014 Inactive Apidra SoloStar 100 unit/mL Sub-Q Insulin Pen RxNorm: 848603 12 Unit Dose SQ TID with meals 06/21/2011 06/23/2011 Inactive Levemir Flexpen 100 unit/mL (3 mL) Sub-Q Insulin Pen RxNorm: 663163 75 Unit(s) SQ as doctor directed 20 units in the morning and 65 units at bedtime 06/21/2011 06/23/2011 Inactive Levemir Flexpen 100 unit/mL (3 mL) Sub-Q Insulin Pen RxNorm: 854200 75 Unit(s) SQ as doctor directed 15 units in the morning and 60 units at bedtime 04/23/2011 06/20/2011 Inactive Ranexa 500 mg 12 hr Tab RxNorm: 850663 1 Tablet(s) PO BID 04/2208/25/2011 Inactive Levemir Flexpen 100 unit/mL (3 mL) Sub-Q Insulin Pen RxNorm: 207952 75 Unit(s) SQ as doctor directed 15 [...] alsodx 250.03 Plavix 75 mg Tab RxNorm: 324675 1 Tablet(s) PO daily 201109/19/2011 Inactive glipizide 10 mg tablet RxNorm: 676917 1 Tablet(s) PO daily 04/201109/17/2011 Inactive levothyroxine 200 mcg tablet RxNorm: 078908 1 Tablet(s) PO daily 03/22/2011 09/17/2011 Inactive Cymbalta 60 mg capsule,delayed release RxNorm: 247655 Capsule(s) PO 01/15/2011 08/10/2012 Inactive TAKE 1 CAPSULE BY MOUTH DAILY;Patient requests 90 day supply clarithromycin 500 mg Tab RxNorm: 544287 1 Tablet(s) PO BID 08/201004/23/2011 Inactive Ventolin 90 mcg/Actuation Aerosol Inhaler RxNorm: 152116 1 INH QID use the sample as directed until medication is completed 10/24/2010 04/23/2011 Inactive Phenergan with Codeine Syrup RxNorm: 5-10 Milliliter(s) PO Q6 PRN take medication q 6 hours prn for cough 10/24/2010 04/23/2011 Inactive fill 10 ounces of the medication Cymbalta 60 mg Cap RxNorm: 382716 1 Capsule(s) PO daily 10/1501/12/2011 Inactive Lipitor 40 mg Tab RxNorm: 033611 1 Tablet(s) PO daily 201005/16/2015 Inactive metformin 1,000 mg Tab RxNorm: 381467 1 Tablet(s) PO BID 201004/23/2011 Inactive ondansetron HCl 4 mg tablet RxNorm: 213546 1 Tablet(s) PO TID as needed No Start Date Active Norvasc 5 mg tablet RxNorm: 656165 1 Tablet(s) PO daily No Start Date Active Kionex 15 gram/60 mL oral suspension RxNorm: 510301 60 Milliliter(s) PO UD per dr. tompkins's rx No Start Date Active sodium bicarbonate oral RxNorm: 68246 oral No Start Date Active aspirin 81 mg capsule,delayed release RxNorm: 802241 1 Capsule(s) PO QHS as needed No Start Date Active Flomax 0.4 mg capsule RxNorm: 304208 1 Capsule(s) PO QHS No Start Date 08/10/2014 Inactive Coreg 12.5 mg tablet RxNorm: 773655 1 Tablet(s) PO BID with meals No Start Date 07/18/2014 Inactive Combivent Respimat 20 mcg-100 mcg/actuation solution for inhalation RxNorm: 2873388 1 INH Q6 as needed No Start Date 08/25 Inactive Tessalon 200 mg capsule RxNorm: 985372 1 Capsule(s) PO TID as needed No Start Date 06/14/2015 Inactive omeprazole 40 mg capsule,delayed release RxNorm: 525023 1 Capsule(s) PO daily No Start Date 10/10/2016 Inactive Ultram 50 mg tablet RxNorm: 754331 1 Tablet(s) PO Q4 PRN No Start Date 08/11/2012 Inactive benzonatate 100 mg capsule RxNorm: 287293 1 Capsule(s) PO TID for cough No Start Date 11/21/2014 Inactive lactulose 10 gram/15 mL oral solution RxNorm: 661259 15 Milliliter(s) PO BID No Start Date 06/02/2016 Inactive Levemir FlexTouch 100 unit/mL (3 mL) subcutaneous insulin pen RxNorm: 225536 15 Unit(s) SQ BID No Start Date 11/12/2015 Inactive [place] 3 Fish Oil capsule RxNorm: 1 Capsule(s) PO daily No Start Date 06/02/2016 Inactive Levaquin 750 mg tablet RxNorm: 707929 1 Tablet(s) PO every other day No Start Date 11/14/2014 Inactive isosorbide mononitrate ER 30 mg tablet,extended release 24 hr RxNorm: 288068 1 Tablet(s) PO daily No Start Date 2017 Inactive Dulera 200 mcg-5 mcg/actuation HFA aerosol inhaler RxNorm: 2423960 1 INH BID No Start Date 06/14/2015 Inactive Plavix 75 mg tablet RxNorm: 638660 1 Tablet(s) PO QAM No Start Date 06/02/2016 Inactive PhosLo 667 mg capsule RxNorm: 644534 1 Capsule(s) PO TID with meals No Start Date 06/02/2016 Inactive hydrocodone 5 mg-acetaminophen 325 mg tablet RxNorm: 360820 1 Tablet(s) PO Q6 PRN No Start Date 03/14/2013 Inactive Phenergan with Codeine Syrup RxNorm: 1 or 2 PO Q6 PRN No Start Date 08/23/2012 Inactive Symbicort 160 mcg-4.5 mcg/actuation HFA aerosol inhaler RxNorm: 8060897 1 INH BID No Start Date 11/21/2014 Inactive BD Insulin Pen Needle UF Short 31 X 5/16" RxNorm: miscellaneous No Start Date 02/24/2013 Inactive cyclobenzaprine 10 mg tablet RxNorm: 141247 1 Tablet(s) PO Q8 as needed No Start Date 10/08/2017 Inactive Apidra 100 unit/mL subcutaneous solution RxNorm: 696074 Unit(s) SQ 10 units with meals No Start Date 06/20/2013 Inactive colesevelam 625 mg tablet RxNorm: 301094 3 Tablet(s) PO BID before meals. No Start Date 06/14/2015 Inactive Apidra SoloStar 100 unit/mL Sub-Q Insulin Pen RxNorm: 150464 5 Unit Dose SQ TID with meals No Start Date 06/20/2011 Inactive Spiriva with HandiHaler 18 mcg & inhalation capsules RxNorm: 329063 1 Capsule(s) INH daily No Start Date 08/15/2014 Inactive albuterol sulfate 2.5 mg/3 mL (0.083 %) solution for nebulization RxNorm: 346159 1 Milliliter(s) INH Q8 PRN No Start Date 05/31/2013 Inactive losartan 25 mg tablet RxNorm: 481487 1 Tablet(s) PO daily No Start Date 11/14/2016 Inactive Zithromax Z-Bhavesh 250 mg tablet RxNorm: 566096 Tablet(s) PO No Start Date 09/01/2012 Inactive zpak Symbicort 160 mcg-4.5 mcg/Actuation Inhalation HFA Aerosol Inhaler RxNorm: 0722373 1 INH BID use the sample as directed until medication is completed No Start Date 04/23/2011 Inactive Aranesp 40 mcg/mL (in polysorbate) Injection RxNorm: 706344 1 Milliliter(s) Inj QW No Start Date 08/13/2015 Inactive hydralazine 50 mg tablet RxNorm: 791734 1 Tablet(s) PO TID No Start Date 09/24/2015 Inactive Humulin R 100 unit/mL injection solution RxNorm: 636601 Unit(s) Inj No Start Date 08/22/2013 Inactive sliding scale a Apidra SoloStar 100 unit/mL Sub-Q Insulin Pen RxNorm: 812652 70 units am, 70 units noon, 60 units supper Unit(s) SQ No Start Date 06/07/2013 Inactive PhosLo 667 mg capsule RxNorm: 825750 1 Capsule(s) PO TID with meals No Start Date 02/21/2015 Inactive Synthroid 50 mcg tablet RxNorm: 126063 1 Tablet(s) PO daily No Start Date 02/05/2012 Inactive metoprolol succinate ER 25 mg 24 hr Tab RxNorm: 905566 1/2 Tablet(s) PO BID No Start Date 06/23/2011 Inactive Levemir Flexpen 100 unit/mL (3 mL) Sub-Q Insulin Pen RxNorm: 633912 50 Unit(s) SQ QHS No Start Date 04/22/2011 Inactive flecainide 100 mg tablet RxNorm: 304465 1 Tablet(s) PO BID No Start Date 06/02/2016 Inactive Tessalon [place] 100 mg capsule RxNorm: 969333 1 Capsule(s) PO TID as needed No Start Date 11/04/2017 Inactive hydrocodone 5 mg-acetaminophen 325 mg tablet RxNorm: 728255 1-2 Tablet(s) PO Q4H as needed No Start Date 10/10/2016 Inactive Synthroid 300 mcg tablet RxNorm: 774340 1 Tablet(s) PO daily No Start Date 06/22/2012 Inactive Tessalon 200 mg capsule RxNorm: 246823 1 Capsule(s) PO TID as needed No Start Date 11/03/2017 Inactive hydrocodone 7.5 mg-acetaminophen 325 mg tablet RxNorm: 706662 1-2 Tablet(s) PO Q6 as needed No Start Date 06/16/2014 Inactive Zofran 4 mg tablet RxNorm: 342911 1 Tablet(s) PO Q6 PRN No Start Date 12/16/2013 Inactive Synthroid 88 mcg tablet RxNorm: 193125 1 Tablet(s) PO daily takes with 200mcg to equal 288mcg No Start Date 06/22/2012 Inactive Miralax 17 gram oral powder packet RxNorm: 776540 1 PO daily No Start Date 07/24/2017 Inactive ProAir HFA 90 mcg/actuation aerosol inhaler RxNorm: 062425 INH Q4H as needed 108mcg No Start Date 08/13/2015 Inactive Colace 100 mg capsule RxNorm: 0904424 1 Capsule(s) PO QAM No Start Date 08/13/2015 Inactive Medication Administered Medication Codes Instructions Start Date Status Kenalog 40 mg/mL suspension for injection RxNorm: 0074477 1Milliliter 01/29/2018 Active Phenergan 25 mg/mL injection solution RxNorm: 328030 1Milliliter 09/19/2015 No longer Active Kenalog 40 mg/mL suspension for injection RxNorm: 0641974 Milliliter 08/18/2015 No longer Active Influenza Virus [...] 2012 Syncope ICD-9: 780.2 09/17/2012 Fall at retirement ICD-9: E888.9 2012 LYMPHOMAS NEC EXTRANODAL/NOS ICD-9: [...] mellitus 07/08/2013 passed out at sons house [place]ir[place], didnt feel anything coming cough 07/01/2013 diabetes [...] Item Item Code Result Date Free T4 Jrz057 FREE T4 <0.25 ng/dL 05/02/2017 Tsh Ord6 TSH (3rd IS) >50.40 Result Verified By Repeat Analysis uIU/mL 05/02/2017 Comp Metabolic Riv131 NA 138 mEq/L 05/01/2017 Comp Metabolic Ysa587 K 4.8 mEq/L 05/01/2017 Comp Metabolic Owd837 CL 100 mEq/L 05/01/2017 Comp Metabolic Bqi452 CO2 28.0 mEq/L 05/01/2017 Comp Metabolic Hzm181 ANION GAP 15 05/01/2017 Comp Metabolic Ltt643 GLUCOSE 113 mg/dL 05/01/2017 Comp Metabolic Cxz591 Creat 4.3 mg/dL 05/01/2017 Comp Metabolic Xuw848 eGFR 15 ml/min/1.73m2 05/01/2017 Comp Metabolic Oco909 BUN 29 mg/dL 05/01/2017 Comp Metabolic Wkt916 B/C Ratio 6.8 Ratio 05/01/2017 Comp Metabolic Nzg907 CALCIUM 8.8 mg/dL 05/01/2017 Comp Metabolic Tqe862 ALK PHOS 53 U/L 05/01/2017 Comp Metabolic Lvp420 AST(SGOT) 12 U/L 05/01/2017 Comp Metabolic Rto577 ALT(SGPT) 11 U/L 05/01/2017 Comp Metabolic Her181 BILI T 0.3 mg/dL 05/01/2017 Comp Metabolic Tmr595 ALBUMIN 3.9 g/dL 05/01/2017 Comp Metabolic Xkt162 TPRO 5.8 g/dL 05/01/2017 Comp Metabolic Rej511 GLOB 2.0 g/dL 05/01/2017 Comp Metabolic Onp552 A/G Ratio 2.0 Ratio 05/01/2017 Comp Metabolic Otu465 Osmo 282 mOsmo 05/01/2017 %Hba1C Iat456 % HbA1c 08687-5 5.8 % 05/01/2017 %Hba1C Yeo964 Gluc Ave 120 mg/dL 05/01/2017 Cbc With [...] 34.2 pg 05/01/2017 Cbc With Differential Ord2 [place]% 7.4 % 05/01/2017 Cbc With Differential Ord2 [...] 1.21 K/ul 05/01/2017 Cbc With Differential Ord2 [place] ABS# 0.5 K/ul 05/01/2017 Cbc With Differential Ord2 Eos ABS# 0.4 K/ul 05/01/2017 Cbc With Differential Ord2 Baso ABS# 0.0 K/ul 05/01/2017 Comp Metabolic Ghb256 NA 138 mEq/L 01/21/2017 Comp Metabolic Rka534 K 4.8 mEq/L 01/21/2017 Comp Metabolic Gol651 CL 100 mEq/L 01/21/2017 Comp Metabolic Iae383 CO2 31.0 mEq/L 01/21/2017 Comp Metabolic Yxz808 ANION GAP 12 01/21/2017 Comp Metabolic Xtf897 GLUCOSE 150 mg/dL 01/21/2017 Comp Metabolic Hqk791 Creat 4.1 mg/dL 01/21/2017 Comp Metabolic Gia368 eGFR 15 ml/min/1.73m2 01/21/2017 Comp Metabolic Fin808 BUN 23 mg/dL 01/21/2017 Comp Metabolic Qdz382 B/C Ratio 5.6 Ratio 01/21/2017 Comp Metabolic Ohk133 CALCIUM 9.0 mg/dL 01/21/2017 Comp Metabolic Nep393 ALK PHOS 65 U/L 01/21/2017 Comp Metabolic Bkl833 AST(SGOT) 12 U/L 01/21/2017 Comp Metabolic Vqv041 ALT(SGPT) 9 U/L 01/21/2017 Comp Metabolic Qjl301 BILI T 0.3 mg/dL 01/21/2017 Comp Metabolic Xzm252 ALBUMIN 3.8 g/dL 01/21/2017 Comp Metabolic Bbs817 TPRO 6.0 g/dL 01/21/2017 Comp Metabolic Box366 GLOB 2.2 g/dL 01/21/2017 Comp Metabolic Fxs135 A/G Ratio 1.8 Ratio 01/21/2017 Comp Metabolic Fos509 Osmo 282 mOsmo 01/21/2017 Cbc With Differential [...] 34.1 pg 01/21/2017 Cbc With Differential Ord2 [place]% 7.9 % 01/21/2017 Cbc With Differential Ord2 [...] 0.97 K/ul 01/21/2017 Cbc With Differential Ord2 [place] ABS# 0.4 K/ul 01/21/2017 Cbc With Differential Ord2 Eos ABS# 0.6 K/ul 01/21/2017 Cbc With Differential Ord2 Baso ABS# 0.0 K/ul 01/21/2017 %Hba1C Ygq332 % HbA1c 51086-2 5.7 % 01/21/2017 %Hba1C Pux505 Gluc Ave 117 mg/dL 01/21/2017 SPTYPE 20141111 SP TYPE SERUM 04/29/2013 SPTYPE 20141111 HMLYSIS NO 04/29/2013 FREE T4 9657723 FREE T4 0.80 NG/DL 04/29/2013 CBC 2923424 WBC 7.5 10e9/L 04/29/2013 CBC 3140460 RBC 3.50 10e12/L 04/29/2013 CBC 1976957 HGB 11.1 g/dL 04/29/2013 CBC 1462082 HCT DET 32.0 % 04/29/2013 CBC 4158350 MCV 91.4 fL 04/29/2013 CBC 1686184 MCH 31.7 pg 04/29/2013 CBC 3833680 MCHC 34.7 g/dL 04/29/2013 CBC 8794389 PLT 287 10e9/L 04/29/2013 CBC 5546668 MPV 9.1 fL 04/29/2013 CBC 6300218 OWEN % 83.4 % 04/29/2013 CBC 9798974 LY % 8.0 % 04/29/2013 CBC 8511311 MON % 6.0 % 04/29/2013 CBC 8949736 EOS % 2.3 % 04/29/2013 CBC 2465411 BASO % 0.3 % 04/29/2013 CBC 6630706 RDW 12.3 % 04/29/2013 CBC 3733654 ABS OWEN 6.26 10e9/L 04/29/2013 CBC 8963687 ABS LYMPH 0.60 10e9/L 04/29/2013 CBC 4975090 ABS MONO 0.45 10e9/L 04/29/2013 CBC 9130915 ABS EOS 0.17 10e9/L 04/29/2013 CBC 7081144 ABS BASO 0.02 10e9/L 04/29/2013 CBC 3583624 RDW-SD 39.8 fL 04/29/2013 TSH 5740882 TSH 95.308 uIU/ML 04/29/2013 GFR CALC 5005449 GFR AA 38.0L ML/MIN 04/29/2013 GFR CALC 0274800 GFR NON-AA 31.0L ML/MIN 04/29/2013 CHEM 14 3094968 AST 7 U/L 04/29/2013 CHEM 14 9234707 ALT 8 IU/L 04/29/2013 CHEM 14 4641294 BUN 50 MG/DL 04/29/2013 CHEM 14 7555624 ALBUMIN 3.6 GM/DL 04/29/2013 CHEM 14 7274584 CHLORIDE 88 MMOL/L 04/29/2013 CHEM 14 6161833 BILI TOT 0.3 MG/DL 04/29/2013 CHEM 14 1305793 ALK PHOS 118 U/L 04/29/2013 CHEM 14 1009404 SODIUM 126 MMOL/L 04/29/2013 CHEM 14 8486582 CREATININE 2.14 MG/DL 04/29/2013 CHEM 14 2166088 CALCIUM 9.5 MG/DL 04/29/2013 CHEM 14 6396021 POTASSIUM 5.6 MMOL/L 04/29/2013 CHEM 14 3159003 PROT TOT 6.6 GM/DL 04/29/2013 CHEM 14 8246854 GLUCOSE 578 MG/DL 04/29/2013 CHEM 14 5278565 BICARB 32 MMOL/L 04/29/2013 CHEM 14 1680412 ANION GAP 6 MEQ/L 04/29/2013 A1C HPLC 0432331 A1C HPLC 32561-7 11.8 % 11/26/2012 PEND CHEM PEND CHEM A1C HPLC 11/25/2012 TSH 9469395 TSH 27.831 uIU/ML 11/24/2012 FREE T4 6676979 FREE T4 1.00 NG/DL 11/24/2012 GFR CALC 9140774 GFR AA >60 ML/MIN 02/03/2012 GFR CALC 5700500 GFR NON-AA 54.0L ML/MIN 02/03/2012 CHEM 14 0580988 AST 15 U/L 02/03/2012 CHEM 14 8022256 ALT 12 IU/L 02/03/2012 CHEM 14 7579828 BUN 26 MG/DL 02/03/2012 CHEM 14 5611446 ALBUMIN 4.1 GM/DL 02/03/2012 CHEM 14 9813666 CHLORIDE 101 MMOL/L 02/03/2012 CHEM 14 3250731 BILI TOT 0.3 MG/DL 02/03/2012 CHEM 14 6322874 ALK PHOS 92 U/L 02/03/2012 CHEM 14 4288047 SODIUM 140 MMOL/L 02/03/2012 CHEM 14 [id number] CREATININE 1.34 MG/DL 02/03/2012 CHEM 14 [id number] CALCIUM 9.7 MG/DL 02/03/2012 CHEM 14 8601596 POTASSIUM 4.5 MMOL/L 02/03/2012 CHEM 14 7262765 PROT TOT 6.5 GM/DL 02/03/2012 CHEM 14 7006628 GLUCOSE 118 MG/DL 02/03/2012 CHEM 14 1581048 BICARB 30 MMOL/L 02/03/2012 CHEM 14 3148141 ANION GAP 9 MEQ/L 02/03/2012 TSH 0659003 TSH 23.984 uIU/ML 02/03/2012 FREE T4 8231112 FREE T4 1.03 NG/DL 02/03/2012 Review of [...] hypoactive 07/25/2017 None Full Exam - General 1995 Lymphatic neck nodes Overall: anterior cervical chain benign 07/25/2017 None Full Exam - General 1994 Lymphatic neck nodes Overall: posterior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 diabetic nephropathy[ICD10: E11.21] Diagnosis: End stage renal disease[ICD10: N18.6] Diagnosis: Hypoxemia[ICD10: R09.02] Shama Zelaya MD, [facility] CPT-4: 43988 02/21/2015 03092 EST. PATIENT, LEVEL III Diagnosis: Constipation, unspecified[ICD10: K59.00] Tess Zelaya MD, [facility] CPT-4: 54968 12/16/2014 ([id number]) 15348 EST. 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 PATIENT, LEVEL IV Diagnosis: Hypotension[ICD9: 458.9] Diagnosis: Diabetes mellitus type 2, uncontrolled[ICD9: 250.02] Diagnosis: Chronic renal disease, stage 4, severely decreased glomerular filtration rate between 15-29 mL/min/1.73 square meter[ICD9: 585.4] Catherine Zelaya MD, [facility] CPT-4: 09170 10/27/2014 ([id number]) 90646 EST. PATIENT, LEVEL III Diagnosis: Open wound of left foot[ICD9: 892.0] Diagnosis: DIABETES TYPE II[ICD9: 250.00] Shama Zelaya MD, [facility] CPT-4: 01842 09/06/2014 ([id number]) 24243 EST. PATIENT, LEVEL III Diagnosis: Nausea and vomiting[ICD9: 787.01] Diagnosis: DIABETES TYPE II[ICD9: 250.00] Catherine Zelaya MD, [facility] CPT- 4: 92766 08/02/2014 ([id number]) 57991 EST. PATIENT, LEVEL IV Diagnosis: Cough[ICD9: 786.2] Diagnosis: ACUTE BRONCHITIS[ICD9: 466.0] Diagnosis: Chronic renal disease, stage 4, severely decreased glomerular filtration rate (GFR) between 15-29 mL/min/1.73 square meter[ICD9: 585.4] Diagnosis: Hypotension[ICD9: 458.9] Catherine Zelaya MD, [facility] CPT-4: 78824 07/26/2014 ([id number]) 53088 EST. PATIENT, LEVEL IV Diagnosis: Hypotension[ICD9: 458.9] Diagnosis: DM W/O COMPLICATION TYPE II, UNCONTROLLED[ICD9: 250.02] Diagnosis: Acute renal failure superimposed on stage 4 chronic kidney disease[ ICD9: 584.9] Diagnosis: COUGH[ICD9: 786.2] Shama Zelaya MD [facility] CPT-4: 26415 07/19/2014 ([id number]) 59787 EST. PATIENT, LEVEL IV Diagnosis: HEADACHE[ICD9: 784.0] Diagnosis: Nausea and vomiting[ICD9: 787.01] Diagnosis: Chronic renal failure, stage 4 (severe)[ICD9: 585.4] Catherine Zelaya MD [facility] CPT-4: 24784 04/01/2014 ([id number]) 73870 EST. PATIENT, LEVEL IV Diagnosis: Diabetes mellitus type 2, uncontrolled[ICD9: 250.02] Diagnosis: HEADACHE[ICD9: 784.0] Diagnosis: Nausea[ICD9: 787.02] Diagnosis: Peripheral neuropathy[ICD9: 356.9] Catherine Zelaya MD [facility] CPT-4: 98039 03/14/2014 ([id number]) 64175 EST. PATIENT, LEVEL IV Diagnosis: DIABETES TYPE II[ICD9: 250.00] Diagnosis: ESSENTIAL HYPERTENSION[ICD9: 401.9] Diagnosis: HYPOTHYROIDISM[ICD9: 244.9] Diagnosis: Gastroparesis[ICD9: 536.3] Catherine Zelaya MD [facility] CPT- 4: 97059 02/21/2014 ([id number]) 78386 EST. PATIENT, LEVEL III Diagnosis: Neck pain[ICD9: 723.1] Diagnosis: Low back pain[ICD9: 724.2] Catherine Zelaya MD [facility] CPT- 4: 20709 01/18/2014 ([id number]) 23561 EST. PATIENT, LEVEL IV Diagnosis: DM W/O COMPLICATION TYPE II, UNCONTROLLED[ICD9: 250.02] Diagnosis: ESSENTIAL HYPERTENSION[ICD9: 401.9] Catherine Zelaya MD [facility] CPT-4: 87377 09/09/2013 ([id number] 16648 EST. PATIENT, LEVEL III Diagnosis: Abdominal pain[ICD9: 789.00] Catherine Zelaya MD [facility] CPT- 4: 90490 08/19/2013 ([id number]) 78983 EST. PATIENT, LEVEL IV Diagnosis: DM W/O COMPLICATION TYPE II, UNCONTROLLED[ICD9: 250.02] Diagnosis: ESSENTIAL HYPERTENSION[ICD9: 401.9] Catherine Zelaya MD [facility] CPT-4: 48634 08/02/2013 ([id number]) 93436 EST. PATIENT, LEVEL IV Diagnosis: Orthostatic hypotension[ICD9: 458.0] Diagnosis: DM W/O COMPLICATION TYPE II, UNCONTROLLED[SNOMED: 20784845] Catherine Zelaya MD [facility] CPT-4: 95511 07/08/2013 ([id number]) 30676 EST. PATIENT, LEVEL IV Diagnosis: ESSENTIAL HYPERTENSION[SNOMED: 41611347] Diagnosis: DM W/O COMPLICATION TYPE II, UNCONTROLLED[SNOMED: 96834609] Diagnosis: COUGH[ICD9: 786.2] Shama Zelaya MD [facility] CPT-4: 64309 07/01/2013 ([id number]) 29166 EST. PATIENT, LEVEL IV Diagnosis: Diabetes mellitus type 2, uncontrolled[ICD9: 250.02] Diagnosis: ESSENTIAL HYPERTENSION[ICD9: 401.9] Catherine Zelaya MD [facility] CPT-4: 75409 06/21/2013 ([id number]) 70948 EST. PATIENT, LEVEL IV Diagnosis: COUGH[ICD9: 786.2] Diagnosis: ESSENTIAL HYPERTENSION[SNOMED: 93824612] Diagnosis: ANEMIA[ICD9: 285.9] Diagnosis: Pneumonia[ICD9: 486] Catherine Zelaya MD [facility] CPT-4: 29508 06/07/2013 ([id number]) Patient admitted to the hospital from clinic (NO CHARGE) Diagnosis: Acute renal failure[ICD9: 584.9] Diagnosis: Hypotension[ICD9: 458.9] Diagnosis: Nausea and vomiting[ICD9: 787.01] Diagnosis: DM W/O COMPLICATION TYPE II, UNCONTROLLED[SNOMED: 74351297] Diagnosis: Gastroenteritis[ICD9: 558.9] Diagnosis: Cough[ICD9: 786.2] Shama Zelaya MD, [facility] CPT-4: 68701A 05/17/2013 ([id number]) 11240 EST. PATIENT, LEVEL IV Diagnosis: DM W/O COMPLICATION TYPE II, UNCONTROLLED[SNOMED: 43547772] Diagnosis: ESSENTIAL HYPERTENSION[SNOMED: 36238607] Diagnosis: HYPOTHYROIDISM[ICD9: 244.9] Diagnosis: Diabetic peripheral neuropathy[ICD9: 250.60] Diagnosis: Encounter for long-term (current) use of other medications[ICD9: V58.69] Shama Zelaya MD, [facility] CPT-4: 68675 ([id number]) 81623 EST. PATIENT, LEVEL III Diagnosis: ESSENTIAL HYPERTENSION[SNOMED: 34959760] Diagnosis: DM W/O COMPLICATION TYPE II, UNCONTROLLED[SNOMED: 71552580] Catherine Zelaya MD , [facility] CPT-4: 56190 03/26/2013 ([id number]) 80578 EST. PATIENT, LEVEL IV Diagnosis: ESSENTIAL HYPERTENSION[SNOMED: 71469371] Diagnosis: CHEST PAIN[ICD9: 786.50] Diagnosis: DM W/O COMPLICATION TYPE II, UNCONTROLLED[SNOMED: 23931077] Shama Zelaya MD, [facility] CPT-4: 82327 03/16/2013 ([id number]) 33555 EST. PATIENT, LEVEL IV Diagnosis: DM W/O COMPLICATION TYPE II, UNCONTROLLED[SNOMED: 14288657] Diagnosis: ESSENTIAL HYPERTENSION[SNOMED: 92800557] Diagnosis: Noncompliance[ICD9: V15.81] Catherine Zelaya MD, [facility] CPT- 4: 71293 03/09/2013 ([id number]) 40429 EST. PATIENT, LEVEL IV Diagnosis: DM W/O COMPLICATION TYPE II, UNCONTROLLED[SNOMED: 48807619] Diagnosis: ESSENTIAL HYPERTENSION[SNOMED: 60804280] Diagnosis: Abscess, dental[ICD9: 522.5] Catherine Zelaya MD, [facility] CPT- 4: 72166 12/11/2012 ([id number]) 88631 EST. PATIENT, LEVEL IV Diagnosis: DM W/O COMPLICATION TYPE II, UNCONTROLLED[SNOMED: 23018354] Diagnosis: ESSENTIAL HYPERTENSION[SNOMED: 43887566] Diagnosis: HYPOTHYROIDISM[ICD9: 244.9] Catherine Zelaya MD [facility] CPT- 4: 99042 11/24/2012 ([id number]) 51168 EST. PATIENT, LEVEL IV Diagnosis: DM W/O COMPLICATION TYPE II, UNCONTROLLED[SNOMED: 24505358] Diagnosis: ESSENTIAL HYPERTENSION[SNOMED: 74195752] Diagnosis: COUGH[ICD9: 786.2] Diagnosis: Acute bronchitis[ICD9: 466.0] Catherine Zelaya MD, [facility] CPT- 4: 63082 10/13/2012 ([id number]) 14586 EST. PATIENT, LEVEL IV Diagnosis: DM W/O COMPLICATION TYPE II, UNCONTROLLED[SNOMED: 61031566] Diagnosis: ESSENTIAL HYPERTENSION[SNOMED: 41136627] Diagnosis: Rib pain on left side[ICD9: 786.50] Diagnosis: Syncope[ICD9: 780.2] Catherine Zelaya MD [facility] CPT-4: 24792 09/17/2012 ([id number]) 69930 EST. PATIENT, LEVEL IV Diagnosis: DM W/O COMPLICATION TYPE II, UNCONTROLLED[SNOMED: 18298981] Diagnosis: HYPOTHYROIDISM[ICD9: 244.9] Catherine Zelaya MD [facility] CPT- 4: 41210 06/25/2012 ([id number]) 76197 EST. PATIENT, LEVEL III Diagnosis: Orthostatic hypotension[ICD9: 458.0] Diagnosis: Fall at retirement[ICD9: E888.9] Catherine Zelaya MD [facility] CPT-4: 16932 06/15/2012 ([id number]) 80171 EST. PATIENT, LEVEL IV Diagnosis: DM W/O COMPLICATION TYPE II, UNCONTROLLED[SNOMED: 50926990] Diagnosis: HYPOTHYROIDISM[ICD9: 244.9] Diagnosis: ESSENTIAL HYPERTENSION[SNOMED: 80117624] Catherine Zelaya MD, [facility] CPT-4: 02397 05/12/2012 ([id number]) 81287 EST. PATIENT, LEVEL IV Diagnosis: DM W/O COMPLICATION TYPE II, UNCONTROLLED[SNOMED: 02609039] Diagnosis: ESSENTIAL HYPERTENSION[SNOMED: 04672971] Diagnosis: LYMPHOMAS NEC EXTRANODAL/NOS[ICD9: 202.80] Diagnosis: HYPOTHYROIDISM[ICD9: 244.9] Catherine Zelaya MD [facility] CPT- 4: 56719 02/03/2012 ([id number]) 35567 EST. PATIENT, LEVEL IV Diagnosis: DM W/O COMPLICATION TYPE II, UNCONTROLLED[SNOMED: 85395394] Diagnosis: Mouth dryness[ICD9: 527.7] Diagnosis: COUGH[ICD9: 786.2] Catherine Zelaya MD [facility] CPT-4: 88382 01/02/2012 72079 EST. PATIENT, LEVEL IV Diagnosis: THRUSH[ICD9: 112.0] Diagnosis: COUGH[ICD9: 786.2] Diagnosis: DIABETES TYPE II[SNOMED: 774369182] Catherine Zelaya MD [facility] CPT-4: 29485 12/02/2011 ([id number]) 09259 EST. PATIENT, LEVEL IV Diagnosis: DM W/O COMPLICATION TYPE II, UNCONTROLLED[SNOMED: 20407344] Diagnosis: ESSENTIAL HYPERTENSION[SNOMED: 19260069] Diagnosis: COUGH[ICD9: 786.2] Diagnosis: Thrush[ICD9: 112.0] Catherine Zelaya MD [facility] CPT-4: 46973 11/21/2011 ([id number]) 98655 EST. PATIENT, LEVEL IV Diagnosis: DM W/O COMPLICATION TYPE II, UNCONTROLLED[SNOMED: 42796928] Diagnosis: ESSENTIAL HYPERTENSION[SNOMED: 33789796] Diagnosis: OBESITY[ICD9: 278.00] Catherine Zelaya MD [facility] CPT-4: 62351 10/24/2011 ([id number]) 74933 EST. PATIENT, LEVEL IV Diagnosis: ESSENTIAL HYPERTENSION[SNOMED: 52441751] Diagnosis: DM W/O COMPLICATION TYPE II, UNCONTROLLED[SNOMED: 53300416] Catherine Zelaya MD [facility] CPT-4: 22649 09/05/2011 ([id number]) 65628 EST. PATIENT, LEVEL IV Diagnosis: DM W/O COMPLICATION TYPE II, UNCONTROLLED[SNOMED: 38878258] Diagnosis: ESSENTIAL HYPERTENSION[SNOMED: 56956733] Diagnosis: LYMPHOMAS NEC EXTRANODAL/NOS[ICD9: 202.80] Catherine Zelaya MD [facility] CPT-4: 46788 07/08/2011 ([id number]) 76346 EST. PATIENT, LEVEL IV Diagnosis: DIABETES TYPE II[SNOMED: 593881044] Diagnosis: ESSENTIAL HYPERTENSION[SNOMED: 59121567] Diagnosis: Lymphoma[ICD9: 202.80] Catherine Zelaya MD [facility] CPT-4: 82951 06/24/2011 ([id number]) 10454 EST. PATIENT, LEVEL IV Diagnosis: Diabetes mellitus type 2, uncontrolled[SNOMED: 95467500] Diagnosis: ESSENTIAL HYPERTENSION[SNOMED: 19186889] Diagnosis: Depression[ICD9: 311] Catherine Zelaya MD, [facility] CPT-4: 59034 04/23/2011 64757 EST. PATIENT, LEVEL IV Diagnosis: Mycoplasma pneumonia[ICD9: 483.0] Diagnosis: ESSENTIAL HYPERTENSION[SNOMED: 91580615] Diagnosis: DIABETES TYPE II[SNOMED: 361271739] Diagnosis: Cough[ICD9: 786.2] Catherine Zelaya MD, [facility] CPT-4: 22453 10/24/2010 Plan of Care Planned Activity Notes Codes Status Date Visit Plan: Pneumonia - Pt has been diagnosed with pneumonia by physical exam. A chest xray has been ordered as have antibiotics. The pt is aware of the diagnosis and the need for acute treatment of this illness. 01/29/2018 Patient Education: Patient Medication Summary Completed 01/29/2018 Care Plan: CHEST X-RAY 2VW FRONTAL&LATL LOINC : 12597-9 Pending 01/29/2018 Visit Plan: HTN - uncontrolled during dialysis - I have discussed with dr. goncalvse- does he want gen[facility] to have any antihypertensives during dialysis if his blood pressure spikes. We have decided upon clonidine 0.1mg po if systolic blood pressure is at or above 170. A message was left for [facility] and the rx sent to the pharmacy 01/01/2018 Appointment: Catherine Zelaya WPtel: [address] [place], [place] [address] (15 min) Moderate 01/01/2018 Patient Education: Patient [...] not improve. 12/01/2017 Appointment: Catherine Zelaya WPtel: [facility] (15 min) Moderate 12/01/2017 Patient Education: Patient [...] co-morbid conditions. 11/17/2017 Appointment: Catherine Zelaya WPtel: [facility] (15 min) Moderate 11/17/2017 Appointment: Shama Copeland WPtel: [phone] (30 min) Complex 11/17/2017 Patient Education: Patient Medication Summary Completed 11/17/2017 Patient Education: Hypertension Completed 11/17/2017 Visit Plan: Bronchitis - acute case of bronchitis identified. Pt has been given antibiotics, breathing treatments as appropriate, and pt has been instructed to call if symptoms are not improved, or if symptoms acutely worsen. 11/04/2017 Appointment: Shama Copeland WPtel: [phone] (15 min) Moderate 11/04/2017 Patient Education: Patient [...] treatment plan. 10/21/2017 [facility]ment[facility] [phone] [facility] ([facility] min) Complex 10/21/2017 Patient Education: Patient Medication Summary Completed 10/21/2017 Visit Plan: Labile HTN-no change in medications today- monitor blood pressure and pulse at home and bring readings in 2 weeks Hypothyroidism-check labs Renal failure-on dialysis 08/07/2017 Appointment: [facility] [address] [phone] [place] (15 min) Moderate 08/07/2017 Patient Education: Patient [...] Patient Medication Summary Completed 07/25/2017 Appointment: Tess Russotel: [phone] [phone] (15 min) Moderate 07/01/2017 Appointment: Tess Russotel: [address] [facility] (15 min) Moderate 06/30/2017 Appointment: [facility] [facility] (15 min) Moderate 06/30/2017 Visit Plan: Continuous [...] greater blood glucose control. 06/25/2017 App[facility]ment: [phone] [facility] [place] (30 min) Complex 06/25/2017 Patient Education: Patient Medication Summary Completed 06/25/2017 Visit Plan: Right shoulder and knee pain-refill hydrocodone for prn breakthrough pain use only-discussed with patient and understanding verbalized 06/06/2017 Appointment: Shama Copeland WPtel: [phone] (15 min) Moderate 06/06/2017 Patient Education: Patient [...] on dialysis 05/01/2017 Appointment: Shama Copeland WPtel: [phone] (30 min) Complex 05/01/2017 Patient Education: Patient Medication Summary Completed 05/01/2017 Appointment: Shama Copeland WPtel: [phone] (30 min) Complex 04/22/2017 Appointment: Shama Copeland WPtel: [phone] [place] (10 min) Simple 01/28/2017 Visit Plan: [...] failure-on dialysis 01/21/2017 Appointment: Shama Copeland WPtel: [phone] [place] (30 min) Complex 01/21/2017 Patient Education: Patient Medication Summary Completed 01/21/2017 Appointment: Shama Copeland WPtel: [address] [place], [place] [phone] (30 min) Complex 01/16/2017 Visit Plan: Hypertension [...] Summary Completed 10/11/2016 Appointment: Shama Copeland WPtel: [address] [place], [place] [phone] (30 min) Complex 10/08/2016 Visit Plan: Hypertension - well controlled - continue with current medications, continue with no added salt diet. Pt has been encouraged to exercise daily. The pt has been advised to call the office if there are any acute concerns about change in blood pressure readings at home. 08/09/2016 Appointment: Shama Copeland WPtel[phone] (30 min) Complex 08/09/2016 Patient Education: Patient Medication Summary Completed 08/09/2016 Visit Plan: HTN-continue medications as directed-monitor blood pressure TID at home and call with readings. ER for chest pain, SOA, etc. Patient verbalized understanding of plan. 07/11/2016 Appointment: Shama Copeland WPtel: [phone] [place] (30 min) Complex 07/11/2016 Patient Education: Patient [...] acute concerns. 07/01/2016 Appointment: Shama Copeland WPtel: [facility] [address] (30 min) Complex 07/01/2016 Patient Education: Patient Medication Summary Completed 07/01/2016 Appointment: Shama Copeland WPtel: [address] [place], [place] [phone] (30 min) Complex 06/06/2016 Visit Plan: Constipation-increase lactulose to TID Hypothyroidism-patient not taking medication-unsure when he stopped it but thinks it-RX sent to patient's pharmacy and instructed on use-f/u in 1 month with labs 06/03/2016 Appointment: Shama Copeland WPtel: [phone] (30 min) Complex 06/03/2016 Patient Education: Patient [...] this regimen. 05/20/2016 Appointment: Shama Copeland WPtel: [phone] [place] (30 min) Complex 05/20/2016 Patient Education: Patient [...] sugars routinely 05/07/2016 Appointment: Shama Copeland WPtel: [phone] (30 min) Complex 05/07/2016 Patient Education: Patient [...] or concerns. 04/22/2016 Appointment: Tess Russo WPtel: [facility] (30 min) Complex 04/22/2016 Patient Education: Patient [...] control. 04/08/2016 Appointment: Sh[facility] Copeland [facility] [phone] [phone] (30 min) Complex 04/08/2016 Patient Education: Patient [...] starting to become less controlled. Renal failure-sees grant officer-going to start dialysis friday Hypothyroidism-check labs 03/08/2016 Appointment: Shama Copeland WPtel: [phone] [phone] (30 min) Complex 03/08/2016 Patient Education: Patient Medication Summary Completed 03/08/2016 Appointment: [phone] [facility] [place] (15 min) Moderate 12/27/2015 Appointment: Shama Copeland WPtel: [phone] [phone] [place] (30 min) Complex 12/12/2015 Visit Plan: Diabetes [...] CPAP device 11/13/2015 Appointment: Shama Copeland WPtel: [phone] [phone] (30 min) Complex 11/13/2015 Patient Education: Patient [...] and supplies 11/03/2015 Appointment: Shama Copeland WPtel: [phone] [phone] (30 min) Complex 11/03/2015 Patient Education: Patient Medication Summary Completed 11/03/2015 Visit Plan: Hypertension - too well controlled - decrease carvedilol to 1/2 tab twice daily. Monitor blood pressure and puse at home. The pt has been advised to call the office if there are any acute concerns about change in blood pressure readings at home. Avjgpaamn-pvxjjps-wfi to #1- medications adjusted Chronic renal disease-fax labs to grant officer-patient due for appt Headache-recent fall-CT head negative-adjusted medications today in the office-call if symptoms do not resolve or if any worse 10/20/2015 Appointment: Shama Copeland WPtel: [phone] [phone] (30 min) Complex 10/20/2015 Patient Education: Patient Medication Summary Completed 10/20/2015 Appointment: Shama Copeland WPtel: [phone] (30 min) Complex 10/12/2015 Visit Plan: Hypertension - too well controlled - decrease carvedilol to 1/2 tab twice daily. Monitor blood pressure and puse at home. The pt has been advised to call the office if there are any acute concerns about change in blood pressure readings at home. Ssekmerur-hieiuri-esp to #1- medications adjusted-check labs including UA Constipation-patient sent for KUB today Chronic renal disease-fax labs to grant officer-patient has appt next week 09/25/2015 Appointment: Shama Copeland WPtel: [address] [place], [place] [phone] (30 min) Complex 09/25/2015 Patient Education: Patient Medication Summary Completed 09/25/2015 Care Plan: X-RAY EXAM OF ABDOMEN LOINC : 23853-3 Pending 09/25/2015 Visit Plan: Gastroparesis - Nausea [...] any concerns. 08/25/2015 Appointment: Shama Copeland WPtel: [address] [place], [place] [phone] (30 min) Complex 08/25/2015 Patient Education: Patient Medication Summary Completed 08/25/2015 Referral: Julianna Thibodeaux Referral Initiated 08/23/2015 Care Plan: CHEST X-RAY 2VW FRONTAL&LATL LOINC : 15031-9 Pending 08/19/2015 Visit Plan: Pneumonia - Pt [...] if needed 08/18/2015 Appointment: [phone] [phone] [place] (15 min) Moderate 08/18/2015 Patient Education: [...] 08/14/2015 Care Plan: Referral Order SNOMED-CT : [id number] Pending 08/11/2015 Appointment: Nurse Visit 08/10/2015 Patient [...] failure-patient receiving peritoneal dialysis at home-appt with grant officer Friday05/18/2015 Appointment: (30 min) Complex 05/18/2015 Patient [...] the 80%'s-will obtain hospital records-concentrator ordered through [employer] while an inpatient-patient wants to get portable [...] the 80%'s-will obtain hospital records-concentrator ordered through [employer] while an inpatient-patient wants to get portable [...] medication. 11/22/2014 Appointment: [facility]el[facility] [address] [facility] (15 min) Moderate 11/22/2014 Patient Education: Patient Medication Summary Completed 11/22/2014 Visit Plan: Hypotension-pt is on chronic antihypertensive medication - the medication has been adjusted down to attempt to alleviate the low blood pressures. Patient was also sent over for 1 literal normal saline today at the hospital. DECREASE COREG TO 3.125 1/2 TAB TWICE DAILY. Chronic renal rymsnmk-hgaojmfcf-tosm labs to Dr Crowell for further management-IVF today at the [facility] Sujmneyl-fwgaesxdxkom-umwznai is non compliant with diet- no change [...] 09/06/2014 Care Plan: Referral Order SNOMED-CT : [id number] Ordered 09/06/2014 Visit Plan: Nausea/vomiting and diabetes-prolonged [...] Patient Education: Hypertension Completed 07/26/2014 Visit Plan: Mpqsbtotgww-vpbiagngx-Wd [place] in to evaluate patient-plan to send to the hospital for IVF and decrease coreg to 1/2 tab twice daily-follow up in 2 weeks JJ-imbewmfaamel-bhoql blood sugar log to next appointment Chronic renal disease-followed by Dr Crowell-repeat labs Yewdx-gxxgddvu-rvcv if symptoms do not resolve 07/19/2014 Appointment: [...] have labs. 04/01/2014 Appointment: Catherine Zel[facility]Ptel[facility] [phone] [facility] [place] Follow up 04/01/2014 Patient Education: Patient Medication [...] hydrocodone. 03/14/2014 Appointment: Catherine Zel[facility]Ptel[facility] [phone] [facility] [place] Follow up 03/14/2014 Patient Education: Patient Medication [...] control. 02/21/2014 Appointment: [facility]Ptel[facility] [phone] [facility] Follow up 02/21/2014 Patient Education: Patient Medication Summary Completed 02/21/2014 Patient Education: Hypertension Completed 02/21/2014 Visit Plan: + glucose, + blood, no nitrites, no leukocytes , no culture indicated. 01/31/2014 Appointment: Catherine Zel[facility]Ptel[facility] [phone] [facility] [facility] 01/31/2014 Patient Education: Patient Medication [...] at home. 09/09/2013 Appointment: Catherine [facility]el[facility] [phone] [facility] [facility] follow up 09/09/2013 Patient Education: Patient Medication Summary Completed 09/09/2013 Patient Education: Hypertension Completed 09/09/2013 Appointment: Catherine Zel[facility]el[facility] [phone] [facility] Follow up 08/31/2013 Visit Plan: Pt has [...] urine straining. 08/19/2013 Appointment: Catherine [facility]el[facility] [phone] [facility] Follow up 08/19/2013 Patient Education: Patient Medication [...] Genove[place] BOTH [place] [facility] [place] is having trouble remembering instructions. I have also recommended that they ask for written instructions if any medications or specific recommendations have been made to change Genoveva's care. 08/02/2013 Appointment: Catherine Zelaya WPtel: [facility] Follow up 08/02/2013 Patient Education: Patient Medication Summary Completed 08/02/2013 Patient Education: Hypertension Completed 08/02/2013 Visit Plan: Orthostatic hypotension-discussed with patient- monitor blood pressure and pulse at home-call next week with readings-will decrease medications if blood pressure low enough. Discussed changing positions slowly-pumping legs for 1 minute before getting up, etc. Patient verbalized understanding of plan. LA-rrxtrwlzswfz-ocyhn more strict adherence to diabetic diet-keep glucomenter and supplies with him at ALL times. Bring in blood sugar log in 2 weeks. Chronic renal disease-check labs. 07/08/2013 Appointment: Sh[facility] [phone] [phone] Other 07/08/2013 Patient Education: Patient Medication Summary [...] cough returns. 07/01/2013 Appointment: Sh[facility] [phone] [phone] Follow up 07/01/2013 Patient Education: Patient Medication [...] pressure machine 06/21/2013 Appointment: Catherine Zelaya WPtel: [facility]5 [facility] Follow up 06/21/2013 Patient Education: Patient Medication Summary Completed 06/21/2013 Patient Education: Hypertension Completed 06/21/2013 Appointment: Shama Copeland WPtel: [facility]5 [phone] [facility] follow up 06/11/2013 Visit Plan: Vijusrxgw-nzqrxpqa-gyxmnz follow up chest xray to ensure resolution of pneumonia Hypertension - well controlled - continue with current medications, continue with no added salt diet. Pt has been encouraged to exercise daily. The pt has been advised to call the office if there are any acute concerns about change in blood pressure readings at home. Anemia-kidney disease-check labs 06/07/2013 Appointment: Shama Copeland WPtel: [phone] [facility] 06/07/2013 Patient Education: Patient Medication Summary Completed 06/07/2013 Patient Education: Hypertension Completed 06/07/2013 Appointment: Shama Copeland WPtel: [phone] Follow up 05/31/2013 Visit Plan: Admission to [...] at bedtime 04/29/2013 Appointment: Shama [facility] [phone] [phone] Follow up 04/29/2013 Patient Education: Patient Medication Summary Completed 04/29/2013 Patient Education: Hypertension Completed 04/29/2013 Appointment: Catherine Zelaya WPtel: [phone] [facility] Follow up 04/22/2013 Visit Plan: Hypertension - well controlled - continue with current medications, continue with no added salt diet. Pt has been encouraged to exercise daily. The pt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
[2018-02-06 13:14] LABS: BASOPHILS % (AUTO) 1 % (0-10); EOSINOPHILS # (AUTO) 0.3 10^3/uL (0.0-0.3); EOSINOPHILS % (AUTO) 5 % (0-10); HEMATOCRIT 31 % (40-54); HEMOGLOBIN 10.5 G/DL (13.3-17.7); LYMPHOCYTES # (AUTO) 1.1 X 10^3 (1.0-4.0); LYMPHOCYTES % (AUTO) 18 % (12-44); MEAN CORPUSCULAR HEMOGLOBIN 34 PG (25-34); MEAN CORPUSCULAR HGB CONC 34 G/DL (32-36); MEAN CORPUSCULAR VOLUME 100 FL (80-99); MEAN PLATELET VOLUME 9.1 FL (7.4-10.4); MONOCYTES # (AUTO) 0.5 X 10^3 (0.0-1.0); MONOCYTES % (AUTO) 9 % (0-12); NEUTROPHILS # (AUTO) 4.1 X 10^3 (1.8-7.8); NEUTROPHILS % (AUTO) 68 % (42-75); PLATELET COUNT 160 10^3/uL (130-400); RED BLOOD COUNT 3.12 10^6/uL (4.35-5.85); RED CELL DISTRIBUTION WIDTH 14.3 % (10.0-14.5)
[2018-02-06 13:29] LABS: PROTHROMBIN TIME PATIENT 12.7 SEC (12.2-14.7)
[2018-02-06 13:35] LABS: ALANINE AMINOTRANSFERASE 22 U/L (0-55); ALBUMIN 4.1 GM/DL (3.2-4.5); ALKALINE PHOSPHATASE 62 U/L (40-136); BILIRUBIN,TOTAL 0.4 MG/DL (0.1-1.0); BUN/CREATININE RATIO 4; CALCIUM 8.6 MG/DL (8.5-10.1); CARBON DIOXIDE 29 MMOL/L (21-32); CHLORIDE 93 MMOL/L (98-107); CREATININE SERUM 3.39 MG/DL (0.60-1.30); GFR ESTIMATED 18; GLUCOSE 104 MG/DL (70-105); POTASSIUM 3.7 MMOL/L (3.6-5.0); SODIUM 134 MMOL/L (135-145); TOTAL PROTEIN 7.4 GM/DL (6.4-8.2)
--- NOTE | 2018-02-06 13:44 | Diagnostic Imaging Report ---
INDICATION: Weakness, history of thyroid cancer. PA and lateral chest obtained at 01:55 p.m. and compared with 01/29/2018. Heart is borderline enlarged. Dialysis catheter is unchanged. Port-A-Cath is unchanged. There is no focal infiltrate, pneumothorax, or pleural fluid. There are chronic-appearing increased basilar markings. IMPRESSION: No acute process in the chest and no change from 01/29/2018. Dictated by: Dictated on workstation # [id number]
--- OUTSIDE RECORDS SUMMARY | 2018-02-06 14:06 | XMS REPORT | Continuity of Care Document ---
Author Author [facility] Organization [facility] Address Unknown Phone Unavailable Allergies Active Description Code Type Severity Reaction Onset Reported/Identified Relationship to Patient Clinical Status Yes nitroglycerin [id number] Drug Allergy Unknown HYPOTENSION 05/17/2013 Yes No Known Drug Allergies [id number] Drug Allergy Unknown N/A 01/03/2014 Medications There [...] DORANTES Ot I25.10 ATHSCL HEART DISEASE OF [place] CORONARY 01/16/1409 SHIRA DORANTES Ot N18.4 CHRONIC KIDNEY DISEASE, STAGE 4 (SEVERE) 01/16/1409 SHIRA DORANTES Ot Z79.4 GROUP HOME (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 01/16/1409 SHIRA DORANTES Ot Z79.899 OTHER GROUP HOME (CURRENT) DRUG THERAPY 01/16/1409 SHIRA DORANTES Ot [...] SYND 04/12/2011 Ot 414.01 CORONARY ATHEROSCLEROSIS OF [place] CORON 04/12/2011 Ot 584.9 ACUTE RENAL FAILURE, [...] NOS 04/19/2011 Ot 414.01 CORONARY ATHEROSCLEROSIS OF [place] CORON 04/19/2011 Ot 786.50 CHEST PAIN NOS [...] Ot V58.81 FIT/ADJ VASCULAR CATHETER 09/11/2012 SEBASTIAN ZELAYA MD Ot 250.02 DIAB CÉSAR WO COMPL, TYPE II OR UNSPEC TY 09/11/2012 SEBASTIAN ZELAYA MD Ot 272.4 HYPERLIPIDEMIA NEC/NOS 09/11/2012 SEBASTIAN ZELAYA MD Ot 401.9 HYPERTENSION NOS 09/11/2012 SEBASTIAN ZELAYA MD Ot 414.01 CORONARY ATHEROSCLEROSIS OF [place] CORON 09/11/2012 SEBASTIAN ZELAYA MD Ot 780.2 SYNCOPE AND COLLAPSE 09/11/2012 SEBASTIAN ZELAYA MD Ot 786.2 COUGH 09/11/2012 SEBASTIAN ZELAYA MD Ot 799.02 HYPOXEMIA 09/11/2012 SEBASTIAN ZELAYA MD Ot 873.0 OPEN WOUND OF SCALP 09/11/2012 SEBASTIAN ZELAYA MD Ot V45.82 PERCUTANEOUS TRANSLUM CORON ANGIOPLASTY 09/11/2012 SEBASTIAN ZELAYA MD Ot V58.67 LONG-TERM (CURRENT) USE OF [...] Ot V58.69 OTH MED,LT,CURRENT USE 11/30/2012 SEBASTIAN ZELAYA MD Ot 053.9 HERPES ZOSTER NOS 11/30/2012 SEBASTIAN ZELAYA MD Ot 202.80 OTH LYMPHOMAS EXTRANODAL SOLID ORGAN U 11/30/2012 SEBASTIAN ZELAYA MD Ot 244.0 POSTSURGICAL HYPOTHYROID 11/30/2012 SEBASTIAN ZELAYA MD Ot 250.02 DIAB CÉSAR WO COMPL, TYPE II OR UNSPEC TY 11/30/2012 SEBASTIAN ZELAYA MD Ot 272.4 HYPERLIPIDEMIA NEC/NOS 11/30/2012 SEBASTIAN ZELAYA MD Ot 276.9 ELECTROLYT/FLUID DIS NEC 11/30/2012 SEBASTIAN ZELAYA MD Ot 401.9 HYPERTENSION NOS 11/30/2012 SEBASTIAN ZELAYA MD Ot 414.01 CORONARY ATHEROSCLEROSIS OF [place] CORON 11/30/2012 SEBASTIAN ZELAYA MD Ot 522.5 PERIAPICAL ABSCESS 11/30/2012 SEBASTIAN ZELAYA MD Ot V10.87 HX OF THYROID MALIGNANCY 11/30/2012 SEBASTIAN ZELAYA MD Ot V15.81 HX OF PAST NONCOMPLIANCE 11/30/2012 SEBASTIAN ZELAYA MD Ot V45.82 PERCUTANEOUS TRANSLUM CORON ANGIOPLASTY 11/30/2012 SEBASTIAN ZELAYA MD Ot V58.69 OTH MED,LT,CURRENT USE 03/14/2013 [...] Ot V58.81 FIT/ADJ VASCULAR CATHETER 05/31/2013 SEBASTIAN ZELAYA MD Ot 038.9 SEPTICEMIA NOS 05/31/2013 SEBASTIAN ZELAYA MD Ot 202.80 OTH LYMPHOMAS EXTRANODAL SOLID ORGAN U 05/31/2013 SEBASTIAN ZELAYA MD Ot 244.9 HYPOTHYROIDISM NOS 05/31/2013 SEBASTIAN ZELAYA MD Ot 250.40 DIAB W RENAL MANIFEST, TYPE II OR UNSPEC 05/31/2013 SEBASTIAN ZELAYA MD Ot 250.62 DIAB W NEURO MANIFEST, TYPE II OR UNSPEC 05/31/2013 SEBASTIAN ZELAYA MD Ot 250.80 DIAB W OTH SPEC MANIFEST, TYPE II OR UNS 05/31/2013 SEBASTIAN ZELAYA MD Ot 272.4 HYPERLIPIDEMIA NEC/NOS 05/31/2013 SEBASTIAN ZELAYA MD Ot 276.1 HYPOSMOLALITY 05/31/2013 SEBASTIAN ZELAYA MD Ot 311 DEPRESSIVE DISORDER NEC 05/31/2013 SEBASTIAN ZELAYA MD Ot 357.2 NEUROPATHY IN DIABETES 05/31/2013 SEBASTIAN ZELAYA MD Ot 401.9 HYPERTENSION NOS 05/31/2013 SEBASTIAN ZELAYA MD Ot 482.9 BACTERIAL PNEUMONIA NOS 05/31/2013 SEBASTIAN ZELAYA MD Ot 511.9 PLEURAL EFFUSION NOS 05/31/2013 SEBASTIAN ZELAYA MD Ot 558.9 NONINF GASTROENTERIT NEC 05/31/2013 SEBASTIAN ZELAYA MD Ot 583.81 NEPHRITIS NOS IN OTH DIS 05/31/2013 SEBASTIAN ZELAYA MD Ot 584.9 ACUTE RENAL FAILURE, UNSPECIFIED 05/31/2013 SEBASTIAN ZELAYA MD Ot 599.0 URIN TRACT INFECTION NOS 05/31/2013 SEBASTIAN ZELAYA MD Ot 786.2 COUGH 05/31/2013 SEBASTIAN ZELAYA MD Ot 995.92 SEVERE SEPSIS 05/31/2013 SEBASTIAN ZELAYA MD Ot V10.87 HX OF THYROID MALIGNANCY 05/31/2013 SEBASTIAN ZELAYA MD Ot V15.3 HX OF IRRADIATION 05/31/2013 SEBASTIAN ZELAYA MD Ot V15.81 HX OF PAST NONCOMPLIANCE 05/31/2013 SEBASTIAN ZELAYA MD Ot V58.67 LONG-TERM (CURRENT) USE OF [...] HOANG MD Ot 414.01 CORONARY ATHEROSCLEROSIS OF [place] CORON 08/27/2013 TEDDY HOANG MD Ot 585.9 [...] Ot 356.9 IDIO PERIPH NEURPTHY NOS 09/15/2013 HSIRA DORANTES Ot 403.90 HYPTNSV CHR KID DIS, [...] Ot 786.50 CHEST PAIN NOS 11/17/2013 SEBASTIAN ZELAYA MD Ot 593.89 RENAL URETERAL DIS NEC 11/17/2013 SEBASTIAN ZELAYA MD Ot 789.00 ABDOMINAL PAIN, UNSPECIFIED SITE [...] M Ot 433.10 01/03/2014 PAIGE MCLAIN S COST SPECIALIST Ot 202.80 01/03/2014 PAIGE MCLAIN S COST SPECIALIST Ot 244.9 01/03/2014 CHEMO HILAH S COST SPECIALIST Ot 585.3 01/03/2014 CHEMO HILAH S COST SPECIALIST Ot 780.4 01/03/2014 CHEMO HILAH S COST SPECIALIST Ot 783.21 01/03/2014 PAIGE MCLAIN S COST SPECIALIST Ot V15.3 01/03/2014 PAIGE MCLAIN S COST SPECIALIST Ot V87.41 01/03/2014 PAIGE MCLAIN S COST SPECIALIST Ot 202.80 01/03/2014 YUMIKO MASSEY, SEBASTIAN A Ot 272.4 01/03/2014 MADELINE ZELAYA MDY A Ot 401.9 01/03/2014 MADELINE ZELAYA MDY A Ot V58.69 01/03/2014 TRAVON AN COST SPECIALIST Ot 719.45 01/03/2014 TRAVON AN COST SPECIALIST Ot 786.50 01/03/2014 TRAVON AN COST SPECIALIST Ot E000.8 01/03/2014 TRAVON AN COST SPECIALIST Ot E849.6 01/03/2014 TRAVON AN COST SPECIALIST Ot E888.9 01/03/2014 PAIGE MCLAIN S COST SPECIALIST Ot 202.80 01/03/2014 CYNTHIA MCLAINAH S COST SPECIALIST Ot 244.9 01/03/2014 CYNTHIA MCLAINAH S COST SPECIALIST Ot 250.00 01/03/2014 CYNTHIA MCLAINAH S COST SPECIALIST Ot 272.4 01/03/2014 CHEMO HILAH S COST SPECIALIST Ot 356.9 01/03/2014 CYNTHIA MCLAINAH S COST SPECIALIST Ot 403.90 01/03/2014 PAIGE MCLAIN S COST SPECIALIST Ot 414.00 01/03/2014 PAIGE MCLAIN S COST SPECIALIST Ot 585.3 01/03/2014 CYNTHIA MCLAINAH S COST SPECIALIST Ot 780.57 01/03/2014 MCLAINPAIGE Matthews S COST SPECIALIST Ot V15.3 01/03/2014 CHEMO PAIGE S COST SPECIALIST Ot V45.82 01/03/2014 CHEMO PAIGE S COST SPECIALIST Ot V58.67 01/03/2014 CHEMO PAIGE S COST SPECIALIST Ot V58.69 01/03/2014 CHEMO PAIGE S COST SPECIALIST Ot V87.41 01/03/2014 CHEMO PAIGE S COST SPECIALIST Ot 202.80 01/03/2014 SHIRA DORANTES Ot 202.80 01/03/2014 TRAVON AN COST SPECIALIST Ot 401.9 01/03/2014 TRAVON AN COST SPECIALIST Ot 518.0 01/03/2014 NICOLE MASSEY, CORY A Ot 591 01/03/2014 NICOLE MASSEY, CORY A Ot 599.70 01/03/2014 NICOLE MASSEY, CORY A Ot 600.00 01/03/2014 NICOLE MASSEY, CORY A Ot 257.2 01/03/2014 NICOLE MASSEY, CORY A Ot 599.70 01/03/2014 NICOLE MASSEY, CORY A Ot 600.00 01/03/2014 TRAVON AN COST SPECIALIST Ot 250.01 01/03/2014 CHEMO PAIGE S COST SPECIALIST Ot 202.80 01/03/2014 CHEMO PAIGE S COST SPECIALIST Ot 202.88 01/03/2014 CHEMO PAIGE S COST SPECIALIST Ot 244.9 01/03/2014 CHEMO PAIGE S COST SPECIALIST Ot 250.00 01/03/2014 CHEMO PAIGE S COST SPECIALIST Ot 414.00 01/03/2014 CHEMO PAIGE S COST SPECIALIST Ot 585.3 01/03/2014 CHEMO PAIGE S COST SPECIALIST Ot V45.82 01/03/2014 CHEMO PAIGE S COST SPECIALIST Ot V58.67 01/03/2014 CHEMO PAIGE S COST SPECIALIST Ot V58.69 01/03/2014 YUMIKO MASSEY, SEBASTIAN A Ot V58.69 01/03/2014 YUMIKO MASSEY, SEBASTIAN A Ot V58.83 01/03/2014 PAIGE MCLAIN S COST SPECIALIST Ot 202.80 01/03/2014 CYNTHIA MCLAINBRODIE S COST SPECIALIST Ot 244.9 01/03/2014 PAIGE MCLAIN COST SPECIALIST Ot 250.00 01/03/2014 PAIGE MCLAIN COST SPECIALIST Ot 272.4 01/03/2014 PAIGE MCLAIN S COST SPECIALIST Ot 356.9 01/03/2014 PAIGE MCLAIN S COST SPECIALIST Ot 403.90 01/03/2014 PAIGE MCLAIN S COST SPECIALIST Ot 414.00 01/03/2014 PAIGE MCLAIN S COST SPECIALIST Ot 585.3 01/03/2014 PAIGE MCLAIN S COST SPECIALIST Ot 780.57 01/03/2014 PAIGE MCLAIN S COST SPECIALIST Ot V45.82 01/03/2014 PAIGE MCLAIN S COST SPECIALIST Ot V58.67 01/03/2014 PAIGE MCLAIN S COST SPECIALIST Ot V58.69 01/03/2014 TRAVON AN COST SPECIALIST Ot 250.01 01/03/2014 TRAVON AN COST SPECIALIST Ot 272.4 01/03/2014 TRAVON AN COST SPECIALIST Ot 401.9 01/03/2014 YUMIKO MASSEY, SEBASTIAN A Ot 250.01 01/03/2014 YUMIKO MASSEY, SEBASTIAN A Ot V58.69 01/03/2014 YUMIKO MASSEY, SEBASTIAN A Ot V58.83 01/03/2014 YUMIKO MASSEY, SEBASTIAN A Ot 285.9 01/03/2014 YUMIKO MASSEY, SEBASTIAN A Ot 786.2 01/03/2014 YUMIKO MASSEY, SEBASTIAN A Ot 786.2 01/03/2014 TRAVON NA COST SPECIALIST Ot 285.9 01/03/2014 TRAVON AN COST SPECIALIST Ot 288.60 01/03/2014 YUMIKO MASSEY, SEBASTIAN A Ot 285.9 01/03/2014 YUMIKO MASSEY, SEBASTIAN A Ot 490 01/03/2014 YUMIKO MASSEY, SEBASTIAN A Ot 780.79 01/03/2014 ABRAHAM MARC DO Ot V72.84 01/03/2014 TIESHA LOVE Ot 250.92 01/03/2014 TIESHA LOVE Ot 272.4 01/03/2014 TIESHA LOVE Ot 401.9 01/03/2014 TIESHA LOVE Ot 414.01 01/03/2014 PAIGE MCLAIN COST SPECIALIST Ot 202.88 01/03/2014 PAIGE MCLAIN COST SPECIALIST Ot 244.9 01/03/2014 PAIGE MCLAIN S COST SPECIALIST Ot 250.00 01/03/2014 PAIGE MCLAIN COST SPECIALIST Ot 414.00 01/03/2014 PAIGE MCLAIN COST SPECIALIST Ot 585.3 01/03/2014 PAIGE MCLAIN S COST SPECIALIST Ot V58.67 01/03/2014 PAIGE MCLAIN S COST SPECIALIST Ot V58.69 01/03/2014 PAIGE MCLAIN COST SPECIALIST Ot 202.80 01/03/2014 VIKTOR MASSEY, TEDDY Andres Ot 272.4 01/03/2014 VIKTOR MASSEY, TEDDY Andres Ot 401.9 01/03/2014 VIKTOR MASSEY, TEDDY J Ot 414.00 01/03/2014 VIKTOR MASSEY, TEDDY Andres Ot 780.2 01/03/2014 VIKTOR MASSEY, TEDDY J Ot 401.9 01/03/2014 VIKTOR MASSEY, TEDDY J Ot 414.00 01/03/2014 VIKTOR MASSEY, TEDDY Andres Ot 780.2 01/03/2014 PAIGE MCLAIN COST SPECIALIST Ot 202.80 01/03/2014 JAYNA, BOBAN N Ot [...] LIZETTE Caputo Ot 433.10 01/04/2014 PAIGE MCLAIN COST SPECIALIST Ot 202.80 01/04/2014 PAIGE MCLAIN COST SPECIALIST Ot 244.9 01/04/2014 PAIGE MCLAIN COST SPECIALIST Ot 585.3 01/04/2014 PAIGE MCLAIN COST SPECIALIST Ot 780.4 01/04/2014 PAIGE MCLAIN COST SPECIALIST Ot 783.21 01/04/2014 PAIGE MCLAIN COST SPECIALIST Ot V15.3 01/04/2014 PAIGE MCLAIN COST SPECIALIST Ot V87.41 01/04/2014 PAIGE MCLAIN COST SPECIALIST Ot 202.80 01/04/2014 YUMIKO MASSEY, SEBASTIAN A Ot 272.4 01/04/2014 YUMIKO MASSEY, SEBASTIAN A Ot 401.9 01/04/2014 YUMIKO MASSEY, SEBASTIAN A Ot V58.69 01/04/2014 TRAVON AN COST SPECIALIST Ot 719.45 01/04/2014 TRAVON AN COST SPECIALIST Ot 786.50 01/04/2014 TRAVON AN COST SPECIALIST Ot E000.8 01/04/2014 TRAVON AN COST SPECIALIST Ot E849.6 01/04/2014 TRAVON AN COST SPECIALIST Ot E888.9 01/04/2014 PAIGE MCLAIN COST SPECIALIST Ot 202.80 01/04/2014 PAIGE MCLAIN S COST SPECIALIST Ot 244.9 01/04/2014 PAIGE MCLAIN S COST SPECIALIST Ot 250.00 01/04/2014 PAIGE MCLAIN S COST SPECIALIST Ot 272.4 01/04/2014 PAIGE MCLAIN S COST SPECIALIST Ot 356.9 01/04/2014 PAIGE MCLAIN S COST SPECIALIST Ot 403.90 01/04/2014 PAIGE MCLAIN S COST SPECIALIST Ot 414.00 01/04/2014 PAIGE MCLAIN S COST SPECIALIST Ot 585.3 01/04/2014 PAIGE MCLAIN S COST SPECIALIST Ot 780.57 01/04/2014 PAIGE MCLAIN S COST SPECIALIST Ot V15.3 01/04/2014 PAIGE MCLAIN S COST SPECIALIST Ot V45.82 01/04/2014 PAIGE MCLAIN S COST SPECIALIST Ot V58.67 01/04/2014 MCLAINPAIGE Matthews S COST SPECIALIST Ot V58.69 01/04/2014 MCLAINPAIGE Matthews S COST SPECIALIST Ot V87.41 01/04/2014 MCLAINPAIGE Matthews S COST SPECIALIST Ot 202.80 01/04/2014 SHIRA DORANTES Ot 202.80 01/04/2014 TRAVON AN COST SPECIALIST Ot 401.9 01/04/2014 TRAVON AN COST SPECIALIST Ot 518.0 01/04/2014 NICOLE MASSEY, CORY A Ot 591 01/04/2014 NICOLE MASSEY, CORY A Ot 599.70 01/04/2014 NICOLE MASSEY, CORY A Ot 600.00 01/04/2014 NICOLE MASSEY, CORY A Ot 257.2 01/04/2014 NICOLE MASSEY, CORY A Ot 599.70 01/04/2014 NICOLE MASSEY, CORY A Ot 600.00 01/04/2014 TRAVON AN COST SPECIALIST Ot 250.01 01/04/2014 MCLAINPAIGE Matthews S COST SPECIALIST Ot 202.80 01/04/2014 MCLAINPAIGE Matthews S COST SPECIALIST Ot 202.88 01/04/2014 MCLAINPAIGE Matthews S COST SPECIALIST Ot 244.9 01/04/2014 MCLAINPAIGE Matthews S COST SPECIALIST Ot 250.00 01/04/2014 PAIGE MCLAIN S COST SPECIALIST Ot 414.00 01/04/2014 PAIGE MCLAIN S COST SPECIALIST Ot 585.3 01/04/2014 PAIGE MCLAIN S COST SPECIALIST Ot V45.82 01/04/2014 PAIGE MCLAIN S COST SPECIALIST Ot V58.67 01/04/2014 PAIGE MCLAIN S COST SPECIALIST Ot V58.69 01/04/2014 YUMIKO MASSEY, SEBASTIAN A Ot V58.69 01/04/2014 YUMIKO MASSEY, SEBASTIAN A Ot V58.83 01/04/2014 PAIGE MCLAIN S COST SPECIALIST Ot 202.80 01/04/2014 PAIGE MCLAIN S COST SPECIALIST Ot 244.9 01/04/2014 PAIGE MCLAIN S COST SPECIALIST Ot 250.00 01/04/2014 PAIGE MCLAIN S COST SPECIALIST Ot 272.4 01/04/2014 PAIGE MCLAIN S COST SPECIALIST Ot 356.9 01/04/2014 MCLAINPAIGE Matthews S COST SPECIALIST Ot 403.90 01/04/2014 PAIGE MCLAIN S COST SPECIALIST Ot 414.00 01/04/2014 PAIGE MCLAIN S COST SPECIALIST Ot 585.3 01/04/2014 PAIGE MCLAIN S COST SPECIALIST Ot 780.57 01/04/2014 PAIGE MCLAIN S COST SPECIALIST Ot V45.82 01/04/2014 PAIGE MCLAIN S COST SPECIALIST Ot V58.67 01/04/2014 PAIGE MCLAIN S COST SPECIALIST Ot V58.69 01/04/2014 TRAVON AN COST SPECIALIST Ot 250.01 01/04/2014 TRAVON AN COST SPECIALIST Ot 272.4 01/04/2014 TRAVON AN COST SPECIALIST Ot 401.9 01/04/2014 YUMIKO MASSEY, SEBASTIAN A Ot 250.01 01/04/2014 YUMIKO MASSEY, SEBASTIAN A Ot V58.69 01/04/2014 YUMIKO MASSEY, SEBASTIAN A Ot V58.83 01/04/2014 YUMIKO MASSEY, SEBASTIAN A Ot 285.9 01/04/2014 YUMIKO MASSEY, SEBASTIAN A Ot 786.2 01/04/2014 YUMIKO MASSEY, SEBASTIAN A Ot 786.2 01/04/2014 TRAVON AN COST SPECIALIST Ot 285.9 01/04/2014 TRAVON AN COST SPECIALIST Ot 288.60 01/04/2014 YUMIKO MASSEY, SEBASTIAN Arvizu Ot 285.9 01/04/2014 YUMIKO MASSEY, SEBASTIAN Arvizu Ot 490 01/04/2014 SEBASTIAN ZELAYA MD Ot 780.79 01/04/2014 ABRAHAM MARC DO Ot V72.84 01/04/2014 BRYNN ROBLEDO, TIESHA K Ot 250.92 01/04/2014 TIESHA LOVE K Ot 272.4 01/04/2014 BRYNN ROBLEDO, TIESHA K Ot 401.9 01/04/2014 JIM LOVETH K Ot 414.01 01/04/2014 PAIGE MCLAIN COST SPECIALIST Ot 202.88 01/04/2014 PAIGE MCLAIN S COST SPECIALIST Ot 244.9 01/04/2014 PAIGE MCLAIN S COST SPECIALIST Ot 250.00 01/04/2014 PAIGE MCLAIN S COST SPECIALIST Ot 414.00 01/04/2014 PAIGE MCLAIN S COST SPECIALIST Ot 585.3 01/04/2014 PAIGE MCLAIN S COST SPECIALIST Ot V58.67 01/04/2014 PAIGE MCLAIN S COST SPECIALIST Ot V58.69 01/04/2014 PAIGE MCLAIN COST SPECIALIST Ot 202.80 01/04/2014 VIKTOR MASSEY, TEDDY Andres Ot 272.4 01/04/2014 VIKTOR MASSEY, TEDDY Andres Ot 401.9 01/04/2014 VIKTOR MASSEY, TEDDY Andres Ot 414.00 01/04/2014 VIKTOR MASSEY, TEDDY Andres Ot 780.2 01/04/2014 VIKTOR MASSEY, TEDDY Andres Ot 401.9 01/04/2014 VIKTOR MASSEY, TEDDY J Ot 414.00 01/04/2014 VIKTOR MASSEY, TEDDY Andres Ot 780.2 01/04/2014 PAIGE MCLAIN COST SPECIALIST Ot 202.80 01/04/2014 SHIRA DORANTES N Ot [...] PUGH MD Ot 414.01 CORONARY ATHEROSCLEROSIS OF [place] CORON 2014 GISSEL PUGH MD Ot 424.0 MITRAL VALVE DISORDER 2014 GISSEL PUGH MD Ot 433.30 MULT BILTRAL ARTERY OCCLUSION WO CEREBRA 2014 GISSEL PUGH MD Ot 536.3 GASTROPARESIS 2014 LEXY MASSEY, GISSEL Matthews Ot 585.9 CHRONIC KIDNEY DISEASE, UNSPECIFIED 2014 LEXY MASSEY, GISSEL Matthews Ot 784.0 HEADACHE 2014 GISSEL PUGH MD Ot 787.01 NAUSEA WITH VOMITING 2014 GISSEL PUGH MD Ot 919.4 INSECT BITE NEC 2014 GISSEL PUGH MD Ot 922.1 CONTUSION OF CHEST WALL 2014 GISSEL PUGH MD Ot E000.8 OTHER EXTERNAL CAUSE STATUS 2014 GISSEL PUGH MD Ot E812.0 MV COLLISION NOS-SENIOR BUYER 2014 GISSEL PUGH MD Ot E906.4 NONVENOM [...] SHIRA DORANTES Ot V58.69 01/27/2014 TRAVON AN COST SPECIALIST Ot 721.0 01/27/2014 TRAVON AN COST SPECIALIST Ot 721.3 01/27/2014 TRAVON AN COST SPECIALIST Ot E000.8 01/27/2014 TRAVON AN COST SPECIALIST Ot E819.9 02/02/2014 Ot 244.9 02/02/2014 Ot [...] LIZETTE Caputo Ot 433.10 02/02/2014 PAIGE MCLAIN COST SPECIALIST Ot 202.80 02/02/2014 PAIGE MCLAIN COST SPECIALIST Ot 244.9 02/02/2014 PAIGE MCLAIN COST SPECIALIST Ot 585.3 02/02/2014 PAIGE MCLAIN COST SPECIALIST Ot 780.4 02/02/2014 PAIGE MCLAIN COST SPECIALIST Ot 783.21 02/02/2014 PAIGE MCLAIN COST SPECIALIST Ot V15.3 02/02/2014 PAIGE MCLAIN COST SPECIALIST Ot V87.41 02/02/2014 PAIGE MCLAIN COST SPECIALIST Ot 202.80 02/02/2014 YUMIKO MASSEY, SEBASTIAN A Ot 272.4 02/02/2014 YUMIKO MASSEY, SEBASTIAN A Ot 401.9 02/02/2014 SEBASTIAN ZELAYA MD A Ot V58.69 02/02/2014 TRAVON AN COST SPECIALIST Ot 719.45 02/02/2014 TRAVON AN COST SPECIALIST Ot 786.50 02/02/2014 TRAVON AN COST SPECIALIST Ot E000.8 02/02/2014 TRAVON AN COST SPECIALIST Ot E849.6 02/02/2014 TRAVON AN COST SPECIALIST Ot E888.9 02/02/2014 MCLAINPAIGE Matthews S COST SPECIALIST Ot 202.80 02/02/2014 MCLAINPAIGE Matthews S COST SPECIALIST Ot 244.9 02/02/2014 MCLAIN, HILAH S COST SPECIALIST Ot 250.00 02/02/2014 MCLAIN, HILAH S COST SPECIALIST Ot 272.4 02/02/2014 CYNTHIA MCLAINAH S COST SPECIALIST Ot 356.9 02/02/2014 CYNTHIA MCLAINAH S COST SPECIALIST Ot 403.90 02/02/2014 MCLAIN, HILAH S COST SPECIALIST Ot 414.00 02/02/2014 MCLAINPAIGE Matthews S COST SPECIALIST Ot 585.3 02/02/2014 MCLAINPAIGE Matthews S COST SPECIALIST Ot 780.57 02/02/2014 MCLAINPAIGE Matthews S COST SPECIALIST Ot V15.3 02/02/2014 MCLAINPAIGE Matthews S COST SPECIALIST Ot V45.82 02/02/2014 MCLAINPAIGE Matthews S COST SPECIALIST Ot V58.67 02/02/2014 MCLAINPAIGE Matthwes S COST SPECIALIST Ot V58.69 02/02/2014 MCLAINPAIGE Matthews S COST SPECIALIST Ot V87.41 02/02/2014 MCLAINPAIGE Matthews S COST SPECIALIST Ot 202.80 02/02/2014 SHIRA DORANTES Ot 202.80 02/02/2014 TRAVON AN COST SPECIALIST Ot 401.9 02/02/2014 TRAVON AN COST SPECIALIST Ot 518.0 02/02/2014 NICOLE MASSEY, CORY A Ot 591 02/02/2014 NICOLE MASSEY, CORY A Ot 599.70 02/02/2014 NICOLE MASSEY, CORY A Ot 600.00 02/02/2014 NICOLE MASSEY, CORY A Ot 257.2 02/02/2014 NICOLE MASSEY, CORY A Ot 599.70 02/02/2014 NICOLE MASSEY, CORY A Ot 600.00 02/02/2014 TRAVON AN COST SPECIALIST Ot 250.01 02/02/2014 CHEMO PAIGE S COST SPECIALIST Ot 202.80 02/02/2014 PAIGE MCLAIN S COST SPECIALIST Ot 202.88 02/02/2014 PAIGE MCLAIN S COST SPECIALIST Ot 244.9 02/02/2014 PAIGE MCLAIN S COST SPECIALIST Ot 250.00 02/02/2014 PAIGE MCLAIN S COST SPECIALIST Ot 414.00 02/02/2014 PAIGE MCLAIN S COST SPECIALIST Ot 585.3 02/02/2014 MCLAINPAIGE Matthews S COST SPECIALIST Ot V45.82 02/02/2014 MCLAINPAIGE Matthews S COST SPECIALIST Ot V58.67 02/02/2014 MCLAINPAIGE Matthews S COST SPECIALIST Ot V58.69 02/02/2014 SEBASTIAN ZELAYA MD A Ot V58.69 02/02/2014 SEBASTIAN ZELAYA MD A Ot V58.83 02/02/2014 MCLAINPAIGE Matthews S COST SPECIALIST Ot 202.80 02/02/2014 PAIGE MCLAIN S COST SPECIALIST Ot 244.9 02/02/2014 MCLAINPAIGE Matthews S COST SPECIALIST Ot 250.00 02/02/2014 MCLAINPAIGE Matthews S COST SPECIALIST Ot 272.4 02/02/2014 PAIGE MCLAIN S COST SPECIALIST Ot 356.9 02/02/2014 MCLAINPAIGE Matthews S COST SPECIALIST Ot 403.90 02/02/2014 PAIGE MCLAIN S COST SPECIALIST Ot 414.00 02/02/2014 PAIGE MCLAIN S COST SPECIALIST Ot 585.3 02/02/2014 PAIGE MCLAIN S COST SPECIALIST Ot 780.57 02/02/2014 MCLAINPAIGE Matthews S COST SPECIALIST Ot V45.82 02/02/2014 MCLAINPAIGE Matthews S COST SPECIALIST Ot V58.67 02/02/2014 MCLAINPAIGE Matthews S COST SPECIALIST Ot V58.69 02/02/2014 TRAVON AN COST SPECIALIST Ot 250.01 02/02/2014 TRAVON AN COST SPECIALIST Ot 272.4 02/02/2014 TRAVON AN COST SPECIALIST Ot 401.9 02/02/2014 YUMIKO MASSEY, SEBASTIAN A Ot 250.01 02/02/2014 SEBASTIAN ZELAYA MD A Ot V58.69 02/02/2014 SEBASTIAN ZELAYA MD Ot V58.83 02/02/2014 SEBASTIAN ZELAYA MD A Ot 285.9 02/02/2014 YUMIKO MASSEY, SEBASTIAN A Ot 786.2 02/02/2014 SEBASTIAN ZELAYA MD Ot 786.2 02/02/2014 TRAVON AN COST SPECIALIST Ot 285.9 02/02/2014 TRAVON AN COST SPECIALIST Ot 288.60 02/02/2014 YUMIKO MASSEY, SEBASTIAN A Ot 285.9 02/02/2014 SEBASTIAN ZELAYA MD Ot 490 02/02/2014 YUMIKO MASSEY, SEBASTIAN A Ot 780.79 02/02/2014 ABRAHAM MARC DO Ot V72.84 02/02/2014 TIESHA LOVE K Ot 250.92 02/02/2014 TIESHA LOVE K Ot 272.4 02/02/2014 JIM LOVETH K Ot 401.9 02/02/2014 JIM LOVETH K Ot 414.01 02/02/2014 PAIGE MCLAIN COST SPECIALIST Ot 202.88 02/02/2014 PAIGE MCLAIN COST SPECIALIST Ot 244.9 02/02/2014 PAIGE MCLAIN COST SPECIALIST Ot 250.00 02/02/2014 PAIGE MCLAIN COST SPECIALIST Ot 414.00 02/02/2014 PAIGE MCLAIN COST SPECIALIST Ot 585.3 02/02/2014 PAIGE MCLAIN COST SPECIALIST Ot V58.67 02/02/2014 PAIGE MCLAIN COST SPECIALIST Ot V58.69 02/02/2014 PAIGE MCLAIN COST SPECIALIST Ot 202.80 02/02/2014 TEDDY HOANG MD Ot 272.4 02/02/2014 VIKTOR MASSEY, TEDDY Andres Ot 401.9 02/02/2014 VIKTOR MASSEY, TEDDY Andres Ot 414.00 02/02/2014 VIKTOR MASSEY, TEDDY Andres Ot 780.2 02/02/2014 VIKTOR MASSEY, TEDDY Andres Ot 401.9 02/02/2014 VIKTOR MASSEY, TEDDY Andres Ot 414.00 02/02/2014 VIKTOR MASSEY, TEDDY Andres Ot 780.2 02/02/2014 PAIGE MCLAIN COST SPECIALIST Ot 202.80 02/02/2014 SHIRA DORANTES Ot 202.80 [...] BOBAN N Ot V58.69 02/02/2014 TRAVON AN COST SPECIALIST Ot 721.0 02/02/2014 TRAVON AN COST SPECIALIST Ot 721.3 02/02/2014 TRAVON AN COST SPECIALIST Ot E000.8 02/02/2014 TRAVON AN COST SPECIALIST Ot E819.9 02/02/2014 TRAVON AN COST SPECIALIST Ot 250.00 02/02/2014 TRAVON AN COST SPECIALIST Ot 787.01 02/02/2014 JAYNA, BOBAN N Ot [...] LIZETTE Caputo Ot 433.10 02/06/2014 PAIGE MCLAIN COST SPECIALIST Ot 202.80 02/06/2014 PAIGE MCLAIN S COST SPECIALIST Ot 244.9 02/06/2014 PAIGE MCLAIN S COST SPECIALIST Ot 585.3 02/06/2014 PAIGE MCLAIN S COST SPECIALIST Ot 780.4 02/06/2014 PAIGE MCLAIN S COST SPECIALIST Ot 783.21 02/06/2014 PAIGE MCLAIN COST SPECIALIST Ot V15.3 02/06/2014 PAIGE MCLAIN S COST SPECIALIST Ot V87.41 02/06/2014 PAIGE MCLAIN COST SPECIALIST Ot 202.80 02/06/2014 YUMIKO MASSEY, SEBASTIAN A Ot 272.4 02/06/2014 YUMIKO MASSEY, SEBASTIAN A Ot 401.9 02/06/2014 YUMIKO MASSEY, SEBASTIAN A Ot V58.69 02/06/2014 TRAVON AN COST SPECIALIST Ot 719.45 02/06/2014 TRAVON AN COST SPECIALIST Ot 786.50 02/06/2014 TRAVON AN COST SPECIALIST Ot E000.8 02/06/2014 TRAVON AN COST SPECIALIST Ot E849.6 02/06/2014 TRAVON AN COST SPECIALIST Ot E888.9 02/06/2014 PAIGE MCLAIN COST SPECIALIST Ot 202.80 02/06/2014 PAIGE MCLAIN COST SPECIALIST Ot 244.9 02/06/2014 PAIGE MCLAIN S COST SPECIALIST Ot 250.00 02/06/2014 PAIGE MCLAIN S COST SPECIALIST Ot 272.4 02/06/2014 PAIGE MCLAIN S COST SPECIALIST Ot 356.9 02/06/2014 PAIGE MCLAIN S COST SPECIALIST Ot 403.90 02/06/2014 PAIGE MCLAIN S COST SPECIALIST Ot 414.00 02/06/2014 PAIGE MCLAIN S COST SPECIALIST Ot 585.3 02/06/2014 PAIGE MCLAIN S COST SPECIALIST Ot 780.57 02/06/2014 PAIGE MCLAIN S COST SPECIALIST Ot V15.3 02/06/2014 MCLAINPAIGE Matthews S COST SPECIALIST Ot V45.82 02/06/2014 MCLAINPAIGE Matthews S COST SPECIALIST Ot V58.67 02/06/2014 MCLAINPAIGE Matthews S COST SPECIALIST Ot V58.69 02/06/2014 MCLAINPAIGE Matthews S COST SPECIALIST Ot V87.41 02/06/2014 MCLAINPAIGE Matthews S COST SPECIALIST Ot 202.80 02/06/2014 SHIRA DORANTES Ot 202.80 02/06/2014 TRAVON AN COST SPECIALIST Ot 401.9 02/06/2014 TRAVON AN COST SPECIALIST Ot 518.0 02/06/2014 NICOLE MASSEY, CORY A Ot 591 02/06/2014 NICOLE MASSEY, CORY A Ot 599.70 02/06/2014 NICOLE MASSEY, CORY A Ot 600.00 02/06/2014 NICOLE MASSEY, CORY A Ot 257.2 02/06/2014 NICOLE MASSEY, CORY A Ot 599.70 02/06/2014 NICOLE MASSEY, CORY A Ot 600.00 02/06/2014 TRAVON AN COST SPECIALIST Ot 250.01 02/06/2014 MCLAINPAIGE Matthews S COST SPECIALIST Ot 202.80 02/06/2014 MCLAINPAIGE Matthews S COST SPECIALIST Ot 202.88 02/06/2014 MCLAINPAIGE Matthews S COST SPECIALIST Ot 244.9 02/06/2014 MCLAINPAIGE Matthews S COST SPECIALIST Ot 250.00 02/06/2014 MCLAINPAIGE Matthews S COST SPECIALIST Ot 414.00 02/06/2014 PAIGE MCLAIN S COST SPECIALIST Ot 585.3 02/06/2014 PAIGE MCLAIN S COST SPECIALIST Ot V45.82 02/06/2014 MCLAINPAIGE Matthews S COST SPECIALIST Ot V58.67 02/06/2014 MCLAINPAIGE Matthews S COST SPECIALIST Ot V58.69 02/06/2014 YUMIKO MASSEY, SEBASTIAN A Ot V58.69 02/06/2014 MADELINE ZELAYA MDY A Ot V58.83 02/06/2014 PAIGE MCLAIN S COST SPECIALIST Ot 202.80 02/06/2014 PAIGE MCLAIN S COST SPECIALIST Ot 244.9 02/06/2014 PAIGE MCLAIN S COST SPECIALIST Ot 250.00 02/06/2014 PAIGE MCLAIN S COST SPECIALIST Ot 272.4 02/06/2014 PAIGE MCLAIN S COST SPECIALIST Ot 356.9 02/06/2014 PAIGE MCLAIN S COST SPECIALIST Ot 403.90 02/06/2014 MCLAINPAIGE Matthews S COST SPECIALIST Ot 414.00 02/06/2014 MCLAINPAIGE Matthews S COST SPECIALIST Ot 585.3 02/06/2014 PAIGE MCLAIN S COST SPECIALIST Ot 780.57 02/06/2014 PAIGE MCLAIN S COST SPECIALIST Ot V45.82 02/06/2014 PAIGE MCLAIN S COST SPECIALIST Ot V58.67 02/06/2014 PAIGE MCLAIN S COST SPECIALIST Ot V58.69 02/06/2014 TRAVON AN COST SPECIALIST Ot 250.01 02/06/2014 TRAVON AN COST SPECIALIST Ot 272.4 02/06/2014 TRAVON AN COST SPECIALIST Ot 401.9 02/06/2014 YUMIKO MASSEY, SEBASTIAN A Ot 250.01 02/06/2014 MADELINE ZELAYA MDY A Ot V58.69 02/06/2014 YUMIKO MASSEY, SEBASTIAN A Ot V58.83 02/06/2014 YUMIKO MASSEY, SEBASTIAN A Ot 285.9 02/06/2014 YUMIKO MASSEY, SEBASTIAN A Ot 786.2 02/06/2014 SEBASTIAN ZELAYA MD A Ot 786.2 02/06/2014 TRAVON AN COST SPECIALIST Ot 285.9 02/06/2014 TRAVON AN COST SPECIALIST Ot 288.60 02/06/2014 SEBASTIAN ZELAYA MD A Ot 285.9 02/06/2014 YUMIKO MASSEY, SEBASTIAN Arvizu Ot 490 02/06/2014 YUMIKO MASSEY, SEBASTIAN Arvizu Ot 780.79 02/06/2014 ABRAHAM MARC DO Ot V72.84 02/06/2014 BRYNN ROBLEDO TIESHA K Ot 250.92 02/06/2014 BRYNN ROBLEDO TIESHA K Ot 272.4 02/06/2014 BRYNN ROBLEDO, TIESHA K Ot 401.9 02/06/2014 TIESHA LOVE K Ot 414.01 02/06/2014 PAIGE MCLAIN COST SPECIALIST Ot 202.88 02/06/2014 PAIGE MCLAIN S COST SPECIALIST Ot 244.9 02/06/2014 PAIGE MCLAIN S COST SPECIALIST Ot 250.00 02/06/2014 PAIGE MCLAIN S COST SPECIALIST Ot 414.00 02/06/2014 PAIGE MCLAIN S COST SPECIALIST Ot 585.3 02/06/2014 PAIGE MCLAIN S COST SPECIALIST Ot V58.67 02/06/2014 PAIGE MCLAIN S COST SPECIALIST Ot V58.69 02/06/2014 PAIGE MCLAIN S COST SPECIALIST Ot 202.80 02/06/2014 VIKTOR MASSEY, TEDDY Andres Ot 272.4 02/06/2014 VIKTOR MASSEY, TEDDY Andres Ot 401.9 02/06/2014 VIKTOR MASSEY, TEDDY Andres Ot 414.00 02/06/2014 VIKTOR MASSEY, TEDDY Andres Ot 780.2 02/06/2014 VIKTOR MASSEY, TEDDY Andres Ot 401.9 02/06/2014 VIKTOR MASSEY, TEDDY Andres Ot 414.00 02/06/2014 VIKTOR MASSEY, TEDDY Andres Ot 780.2 02/06/2014 MCLAINPAIGE Matthews COST SPECIALIST Ot 202.80 02/06/2014 JAYNAMARY CONRADAN N Ot [...] JAYNA, BOBAN N Ot V58.69 02/06/2014 TRAVON AN COST SPECIALIST Ot 721.0 02/06/2014 TRAVON AN COST SPECIALIST Ot 721.3 02/06/2014 TRAVON AN COST SPECIALIST Ot E000.8 02/06/2014 TRAVON AN COST SPECIALIST Ot E819.9 02/06/2014 TRAVON AN COST SPECIALIST Ot 250.00 02/06/2014 TRAVNO AN COST SPECIALIST Ot 787.01 02/06/2014 OTIS ZAIDI MEDICAL CHEMIST Ot 250.40 DIAB W RENAL MANIFEST, TYPE II OR UNSPEC 02/06/2014 OTIS ZAIDI MEDICAL CHEMIST Ot 585.9 CHRONIC KIDNEY DISEASE, UNSPECIFIED 02/06/2014 OTIS ZAIDI MEDICAL CHEMIST Ot 787.03 VOMITING ALONE 02/21/2014 TRAVON AN COST SPECIALIST Ot 250.00 02/21/2014 TRAVON AN COST SPECIALIST Ot 787.01 03/07/2014 Ot 240.9 03/07/2014 Ot [...] M Ot 433.10 03/07/2014 PAIGE MCLAIN S COST SPECIALIST Ot 202.80 03/07/2014 MCLAIN, HILAH S COST SPECIALIST Ot 244.9 03/07/2014 MCLAIN HILAH S COST SPECIALIST Ot 585.3 03/07/2014 MCLAIN HILAH S COST SPECIALIST Ot 780.4 03/07/2014 MCLAIN HILAH S COST SPECIALIST Ot 783.21 03/07/2014 MCLAIN HILAH S COST SPECIALIST Ot V15.3 03/07/2014 CHEMO HILAH S COST SPECIALIST Ot V87.41 03/07/2014 PAIGE MCLAIN S COST SPECIALIST Ot 202.80 03/07/2014 YUMIKO MASSEY, SEBASTIAN A Ot 272.4 03/07/2014 YUMIKO MASSEY, SEBASTIAN A Ot 401.9 03/07/2014 YUMIKO MASSEY, SEBASTIAN A Ot V58.69 03/07/2014 TRAVON AN COST SPECIALIST Ot 719.45 03/07/2014 TRAVON AN COST SPECIALIST Ot 786.50 03/07/2014 TRAVON AN COST SPECIALIST Ot E000.8 03/07/2014 TRAVON AN COST SPECIALIST Ot E849.6 03/07/2014 TRAVON AN COST SPECIALIST Ot E888.9 03/07/2014 PAIGE MCLAIN S COST SPECIALIST Ot 202.80 03/07/2014 MCLAIN, HILAH S COST SPECIALIST Ot 244.9 03/07/2014 CHEMO HILAH S COST SPECIALIST Ot 250.00 03/07/2014 MCLAIN HILAH S COST SPECIALIST Ot 272.4 03/07/2014 MCLAIN HILAH S COST SPECIALIST Ot 356.9 03/07/2014 MCLAIN HILAH S COST SPECIALIST Ot 403.90 03/07/2014 MCLAIN HILAH S COST SPECIALIST Ot 414.00 03/07/2014 MCLAIN HILAH S COST SPECIALIST Ot 585.3 03/07/2014 MCLAIN HILAH S COST SPECIALIST Ot 780.57 03/07/2014 MCLAIN, HILAH S COST SPECIALIST Ot V15.3 03/07/2014 CHEMO PAIGE S COST SPECIALIST Ot V45.82 03/07/2014 CHEMO PAIGE S COST SPECIALIST Ot V58.67 03/07/2014 CHEMO PAIGE S COST SPECIALIST Ot V58.69 03/07/2014 CHEMO PAIGE S COST SPECIALIST Ot V87.41 03/07/2014 CHEMO PAIGE S COST SPECIALIST Ot 202.80 03/07/2014 JAYNASHIRA CONRAD Gen Ot 202.80 03/07/2014 TRAVON AN COST SPECIALIST Ot 401.9 03/07/2014 TRAVON AN COST SPECIALIST Ot 518.0 03/07/2014 NICOLE MASSEY, CORY A Ot 591 03/07/2014 NICOLE MASSEY, CORY A Ot 599.70 03/07/2014 NICOLE MASSYE, CORY A Ot 600.00 03/07/2014 NICOLE MASSEY, CORY A Ot 257.2 03/07/2014 NICOLE MASSEY, CORY A Ot 599.70 03/07/2014 NICOLE MASSEY, CORY A Ot 600.00 03/07/2014 TRAVON AN COST SPECIALIST Ot 250.01 03/07/2014 CHEMO PAIGE S COST SPECIALIST Ot 202.80 03/07/2014 CHEMO PAIGE S COST SPECIALIST Ot 202.88 03/07/2014 CHEMO PAIGE S COST SPECIALIST Ot 244.9 03/07/2014 CHEMO PAIGE S COST SPECIALIST Ot 250.00 03/07/2014 CHEMO PAIGE S COST SPECIALIST Ot 414.00 03/07/2014 CHEMO PAIGE S COST SPECIALIST Ot 585.3 03/07/2014 CHEMO PAIGE S COST SPECIALIST Ot V45.82 03/07/2014 CHEMO PAIGE S COST SPECIALIST Ot V58.67 03/07/2014 CHEMO PAIGE S COST SPECIALIST Ot V58.69 03/07/2014 YUMIKO MASSEY, SEBASTIAN A Ot V58.69 03/07/2014 YUMIKO MASSEY, SEBASTIAN Arvizu Ot V58.83 03/07/2014 CHEMO PAIGE S COST SPECIALIST Ot 202.80 03/07/2014 CHEMO PAIGE S COST SPECIALIST Ot 244.9 03/07/2014 PAIGE MCLAIN COST SPECIALIST Ot 250.00 03/07/2014 PAIGE MCLAIN S COST SPECIALIST Ot 272.4 03/07/2014 PAIGE MCLAIN S COST SPECIALIST Ot 356.9 03/07/2014 PAIGE MCLAIN S COST SPECIALIST Ot 403.90 03/07/2014 PAIGE MCLAIN S COST SPECIALIST Ot 414.00 03/07/2014 PAIGE MCLAIN S COST SPECIALIST Ot 585.3 03/07/2014 PAIGE MCLAIN S COST SPECIALIST Ot 780.57 03/07/2014 PAIGE MCLAIN S COST SPECIALIST Ot V45.82 03/07/2014 PAIGE MCLAIN S COST SPECIALIST Ot V58.67 03/07/2014 PAIGE MCLAIN S COST SPECIALIST Ot V58.69 03/07/2014 TRAVON AN COST SPECIALIST Ot 250.01 03/07/2014 TRAVON AN COST SPECIALIST Ot 272.4 03/07/2014 TRAVON AN COST SPECIALIST Ot 401.9 03/07/2014 YUMIKO MASSEY, SEBASTIAN A Ot 250.01 03/07/2014 YUMIKO MASSEY, SEBASTIAN A Ot V58.69 03/07/2014 YUMIKO MASSEY, SEBASTIAN A Ot V58.83 03/07/2014 YUMIKO MASSEY, SEBASTIAN A Ot 285.9 03/07/2014 YUMIKO MASSEY, SEBASTIAN A Ot 786.2 03/07/2014 YUMIKO MASSEY, SEBASTIAN A Ot 786.2 03/07/2014 TRAVON AN COST SPECIALIST Ot 285.9 03/07/2014 TRAVON AN COST SPECIALIST Ot 288.60 03/07/2014 YUMIKO MASSEY, SEBASTIAN A Ot 285.9 03/07/2014 YUMIKO MASSEY, SEBASTIAN A Ot 490 03/07/2014 YUMIKO MASSEY, SEBASTIAN A Ot 780.79 03/07/2014 ABRAHAM MARC DO Ot V72.84 03/07/2014 TIESHA LOVE Ot 250.92 03/07/2014 TIESHA LOVE Ot 272.4 03/07/2014 TIESHA LOVE Ot 401.9 03/07/2014 TIESHA LOVE Ot 414.01 03/07/2014 PAIGE MCLAIN S COST SPECIALIST Ot 202.88 03/07/2014 PAIGE MCLAIN COST SPECIALIST Ot 244.9 03/07/2014 PAIGE MCLAIN S COST SPECIALIST Ot 250.00 03/07/2014 PAIGE MCLAIN S COST SPECIALIST Ot 414.00 03/07/2014 PAIGE MCLAIN S COST SPECIALIST Ot 585.3 03/07/2014 PAIGE MCLAIN S COST SPECIALIST Ot V58.67 03/07/2014 PAIGE MCLAIN S COST SPECIALIST Ot V58.69 03/07/2014 PAIGE MCLAIN S COST SPECIALIST Ot 202.80 03/07/2014 VIKTOR MASSEY, TEDDY Andres Ot 272.4 03/07/2014 VIKTOR MASSEY, TEDDY Andres Ot 401.9 03/07/2014 VIKTOR MASSEY, TEDDY Andres Ot 414.00 03/07/2014 VIKTOR MASSEY, TEDDY Andres Ot 780.2 03/07/2014 VIKTOR MASSEY, TEDDY Andres Ot 401.9 03/07/2014 VIKTOR MASSEY, TEDDY Andres Ot 414.00 03/07/2014 VIKTOR MASSEY, TEDDY Andres Ot 780.2 03/07/2014 PAIGE MCLAIN COST SPECIALIST Ot 202.80 03/07/2014 JAYNA, BOBAN N Ot [...] VIKTOR MASSEY, TEDDY Andres Ot V57.89 03/07/2014 JAYNA, BOBAN N Ot 202.80 03/07/2014 [...] DORANTES N Ot V58.69 03/07/2014 TRAVON AN COST SPECIALIST Ot 721.0 03/07/2014 TRAVON AN COST SPECIALIST Ot 721.3 03/07/2014 TRAVON AN COST SPECIALIST Ot E000.8 03/07/2014 TRAVON AN COST SPECIALIST Ot E819.9 03/07/2014 TRAVON AN COST SPECIALIST Ot 250.00 03/07/2014 TRAVON AN COST SPECIALIST Ot 787.01 03/08/2014 Ot 240.9 03/08/2014 Ot [...] LIZETTE Caputo Ot 433.10 03/08/2014 PAIGE MCLAIN COST SPECIALIST Ot 202.80 03/08/2014 PAIGE MCLAIN COST SPECIALIST Ot 244.9 03/08/2014 PAIGE MCLAIN COST SPECIALIST Ot 585.3 03/08/2014 PAIGE MCLAIN COST SPECIALIST Ot 780.4 03/08/2014 PAIGE MCLAIN COST SPECIALIST Ot 783.21 03/08/2014 PAIGE MCLAIN COST SPECIALIST Ot V15.3 03/08/2014 PAIGE MCLAIN COST SPECIALIST Ot V87.41 03/08/2014 PAIGE MCLAIN COST SPECIALIST Ot 202.80 03/08/2014 YUMIKO MASSEY, SEBASTIAN A Ot 272.4 03/08/2014 YUMIKO MASSEY, SEBASTIAN A Ot 401.9 03/08/2014 YUMIKO MASSEY, SEBASTIAN A Ot V58.69 03/08/2014 ANTRAVON COST SPECIALIST Ot 719.45 03/08/2014 TRAVON AN COST SPECIALIST Ot 786.50 03/08/2014 TRAVON AN COST SPECIALIST Ot E000.8 03/08/2014 TRAVON AN COST SPECIALIST Ot E849.6 03/08/2014 TRAVON AN COST SPECIALIST Ot E888.9 03/08/2014 MCLAINPAIGE Matthews S COST SPECIALIST Ot 202.80 03/08/2014 MCLAINPAIGE Matthews S COST SPECIALIST Ot 244.9 03/08/2014 MCLAIN, HILAH S COST SPECIALIST Ot 250.00 03/08/2014 MCLAIN, HILAH S COST SPECIALIST Ot 272.4 03/08/2014 MCLAINPAIGE Matthews S COST SPECIALIST Ot 356.9 03/08/2014 MCLAINPAIGE Matthews S COST SPECIALIST Ot 403.90 03/08/2014 MCLAINPAIGE Matthews S COST SPECIALIST Ot 414.00 03/08/2014 MCLAINPAIGE Matthews S COST SPECIALIST Ot 585.3 03/08/2014 MCLAINPAIGE Matthews S COST SPECIALIST Ot 780.57 03/08/2014 MCLAINPAIGE Matthews S COST SPECIALIST Ot V15.3 03/08/2014 MCLAINPAIGE Matthews S COST SPECIALIST Ot V45.82 03/08/2014 MCLAINPAIGE Matthews S COST SPECIALIST Ot V58.67 03/08/2014 MCLAINPAIGE Matthews S COST SPECIALIST Ot V58.69 03/08/2014 MCLAINPAIGE Matthews S COST SPECIALIST Ot V87.41 03/08/2014 MCLAINPAIGE Matthews S COST SPECIALIST Ot 202.80 03/08/2014 SHIRA DORANTES Ot 202.80 03/08/2014 NATALIYATRAVON COST SPECIALIST Ot 401.9 03/08/2014 NATALIYATRAVON COST SPECIALIST Ot 518.0 03/08/2014 NICOLE MASSEY, CORY A Ot 591 03/08/2014 NICOLE MASSEY, CORY A Ot 599.70 03/08/2014 NICOLE MASSEY, CORY A Ot 600.00 03/08/2014 NICOLE MASSEY, CORY A Ot 257.2 03/08/2014 NICOLE MASSEY, CORY A Ot 599.70 03/08/2014 NICOLE MASSEY, CROY A Ot 600.00 03/08/2014 TRAVON AN COST SPECIALIST Ot 250.01 03/08/2014 MCLAINPAIGE S COST SPECIALIST Ot 202.80 03/08/2014 MCLAINPAIGE S COST SPECIALIST Ot 202.88 03/08/2014 MCLAINPAIGE S COST SPECIALIST Ot 244.9 03/08/2014 MCLAINPAIGE S COST SPECIALIST Ot 250.00 03/08/2014 MCLAINPAIGE S COST SPECIALIST Ot 414.00 03/08/2014 MCLAINPAIGE S COST SPECIALIST Ot 585.3 03/08/2014 MCLAINPAIGE S COST SPECIALIST Ot V45.82 03/08/2014 MCLAINPAIGE S COST SPECIALIST Ot V58.67 03/08/2014 MCLAINPAIGE S COST SPECIALIST Ot V58.69 03/08/2014 YUMIKO MASSEY, SEBASTIAN A Ot V58.69 03/08/2014 YUMIKO MASSEY, SEBASTIAN A Ot V58.83 03/08/2014 MCLAINPAIGE S COST SPECIALIST Ot 202.80 03/08/2014 MCLAINPAIGE S COST SPECIALIST Ot 244.9 03/08/2014 MCLAINPAIGE S COST SPECIALIST Ot 250.00 03/08/2014 MCLAINPAIGE S COST SPECIALIST Ot 272.4 03/08/2014 MCLAINPAIGE S COST SPECIALIST Ot 356.9 03/08/2014 MCLAINPAIGE S COST SPECIALIST Ot 403.90 03/08/2014 MCLAINPAIGE S COST SPECIALIST Ot 414.00 03/08/2014 MCLAINPAIGE S COST SPECIALIST Ot 585.3 03/08/2014 MCLAINCYNTHIAAH S COST SPECIALIST Ot 780.57 03/08/2014 MCLAINPAIGE S COST SPECIALIST Ot V45.82 03/08/2014 MCLAINPAIGE S COST SPECIALIST Ot V58.67 03/08/2014 MCLAINCYNTHIAAH S COST SPECIALIST Ot V58.69 03/08/2014 TRAVON AN COST SPECIALIST Ot 250.01 03/08/2014 TRAVON AN COST SPECIALIST Ot 272.4 03/08/2014 TRAVON AN COST SPECIALIST Ot 401.9 03/08/2014 YUMIKO MASSEY, SEBASTIAN A Ot 250.01 03/08/2014 YUMIKO MASSEY, SEBASTIAN A Ot V58.69 03/08/2014 YUMIKO MASSEY, SEBASTIAN A Ot V58.83 03/08/2014 YUMIKO MASSEY, SEBASTIAN A Ot 285.9 03/08/2014 YUMIKO MASSEY, SEBASTIAN A Ot 786.2 03/08/2014 YUMIKO MASSEY, SEBASTIAN A Ot 786.2 03/08/2014 TRAVON AN COST SPECIALIST Ot 285.9 03/08/2014 TRAVON AN COST SPECIALIST Ot 288.60 03/08/2014 YUMIKO MASSEY, SEBASTIAN A Ot 285.9 03/08/2014 YUMIKO MASSEY, SEBASTIAN Arvizu Ot 490 03/08/2014 YUMIKO MASSEY, SEBASTIAN A Ot 780.79 03/08/2014 ABRAHAM MARC DO Ot V72.84 03/08/2014 TIESHA LOVE Ot 250.92 03/08/2014 TIESHA LOVE Ot 272.4 03/08/2014 TIESHA LOVE K Ot 401.9 03/08/2014 TIESHA LOVE K Ot 414.01 03/08/2014 PAIGE MCLAIN COST SPECIALIST Ot 202.88 03/08/2014 PAIGE MCLAIN COST SPECIALIST Ot 244.9 03/08/2014 PAIGE MCLAIN COST SPECIALIST Ot 250.00 03/08/2014 PAIGE MCLAIN COST SPECIALIST Ot 414.00 03/08/2014 PAIGE MCLAIN COST SPECIALIST Ot 585.3 03/08/2014 PAIGE MCLAIN COST SPECIALIST Ot V58.67 03/08/2014 PAIGE MCLAIN COST SPECIALIST Ot V58.69 03/08/2014 PAIGE MCLAIN COST SPECIALIST Ot 202.80 03/08/2014 VIKTOR MASSEY, TEDDY Andres Ot 272.4 03/08/2014 VIKTOR MASSEY, TEDDY J Ot 401.9 03/08/2014 VIKTOR MASSEY, TEDDY J Ot 414.00 03/08/2014 VIKTOR MASSEY, TEDDY J Ot 780.2 03/08/2014 VIKTOR MASSEY, TEDDY J Ot 401.9 03/08/2014 VIKTOR MASSEY, TEDDY J Ot 414.00 03/08/2014 VIKTOR MASSEY, BASHAR J Ot 780.2 03/08/2014 PAIGE MCLAIN COST SPECIALIST Ot 202.80 03/08/2014 JAYNA, BOBAN N Ot 202.80 03/08/2014 JAYNA, BOBAN N Ot 244.9 03/08/2014 JAYNA, BOBAN N Ot 250.00 03/08/2014 JAYNA, BOBAN N Ot 414.01 03/08/2014 AJYNA, BOBAN N Ot 585.3 03/08/2014 JAYNA, BOBAN N Ot V45.82 03/08/2014 AJYNA, BOBAN N Ot V58.67 03/08/2014 Ot 593.89 [...] BOBAN N Ot V58.69 03/08/2014 TRAVON AN COST SPECIALIST Ot 721.0 03/08/2014 TRAVON AN COST SPECIALIST Ot 721.3 03/08/2014 TRAVON AN COST SPECIALIST Ot E000.8 03/08/2014 TRAVON AN COST SPECIALIST Ot E819.9 03/08/2014 TRAVON AN COST SPECIALIST Ot 250.00 03/08/2014 TRAVON AN COST SPECIALIST Ot 787.01 03/19/2014 TEDDY HOANG MD Ot V45.82 03/19/2014 TEDDY HOANG MD Ot V57.89 03/24/2014 TEDDY HOANG MD Ot V45.82 03/24/2014 TEDDY HOANG [...] SEBASTIAN A Ot E000.8 03/29/2014 YUMIKO MASSEY, SEBASTINA A Ot E849.7 03/29/2014 YUMIKO MASSEY, SEBASTIAN A Ot E888.9 03/29/2014 SHIRA DORANTES Ot 202.80 03/29/2014 BALTAZAR MASSEY, LIZETTE Caputo Ot 433.10 03/29/2014 MCLAIN, HILAH S COST SPECIALIST Ot 202.80 03/29/2014 MCLAIN, HILAH S COST SPECIALIST Ot 244.9 03/29/2014 MCLAIN, HILAH S COST SPECIALIST Ot 585.3 03/29/2014 CHEMO HILAH S COST SPECIALIST Ot 780.4 03/29/2014 MCLAIN, HILAH S COST SPECIALIST Ot 783.21 03/29/2014 MCLAIN, HILAH S COST SPECIALIST Ot V15.3 03/29/2014 MCLAIN, HILAH S COST SPECIALIST Ot V87.41 03/29/2014 CHEMO HILAH S COST SPECIALIST Ot 202.80 03/29/2014 YUMIKO MASSEY, SEBASTIAN A Ot 272.4 03/29/2014 YUMIKO MASSEY, SEBASTIAN A Ot 401.9 03/29/2014 YUMIKO MASSEY, SEBASTIAN A Ot V58.69 03/29/2014 TRAVON AN COST SPECIALIST Ot 719.45 03/29/2014 TRAVON AN COST SPECIALIST Ot 786.50 03/29/2014 TRAVON AN COST SPECIALIST Ot E000.8 03/29/2014 TRAVON AN COST SPECIALIST Ot E849.6 03/29/2014 TRAVON AN COST SPECIALIST Ot E888.9 03/29/2014 CHEMO HILAH S COST SPECIALIST Ot 202.80 03/29/2014 MCLAIN HILAH S COST SPECIALIST Ot 244.9 03/29/2014 MCLAIN, HILAH S COST SPECIALIST Ot 250.00 03/29/2014 CHEMO HILAH S COST SPECIALIST Ot 272.4 03/29/2014 MCLAIN HILAH S COST SPECIALIST Ot 356.9 03/29/2014 PAIGE MCLAIN S COST SPECIALIST Ot 403.90 03/29/2014 PAIGE MCLAIN S COST SPECIALIST Ot 414.00 03/29/2014 PAIGE MCLAIN S COST SPECIALIST Ot 585.3 03/29/2014 PAIGE MCLAIN S COST SPECIALIST Ot 780.57 03/29/2014 PAIGE MCLAIN S COST SPECIALIST Ot V15.3 03/29/2014 MCLAINPAIGE S COST SPECIALIST Ot V45.82 03/29/2014 MCLAINPAIGE S COST SPECIALIST Ot V58.67 03/29/2014 MCLAINPAIGE Matthews S COST SPECIALIST Ot V58.69 03/29/2014 PAIGE MCLAIN S COST SPECIALIST Ot V87.41 03/29/2014 PAIGE MCLAIN S COST SPECIALIST Ot 202.80 03/29/2014 SHIRA DORANTES Ot 202.80 03/29/2014 TRAVON AN COST SPECIALIST Ot 401.9 03/29/2014 TRAVON AN COST SPECIALIST Ot 518.0 03/29/2014 NICOLE MASSEY, CORY A Ot 591 03/29/2014 NICOLE MASSEY, CORY A Ot 599.70 03/29/2014 NICOLE MASSEY, CORY A Ot 600.00 03/29/2014 NICOLE MASSEY, CORY A Ot 257.2 03/29/2014 NICOLE MASSEY, CORY A Ot 599.70 03/29/2014 NICOLE MASSEY, CORY A Ot 600.00 03/29/2014 TRAVON AN COST SPECIALIST Ot 250.01 03/29/2014 PAIGE MCLAIN S COST SPECIALIST Ot 202.80 03/29/2014 MCLAINPAIGE Matthews S COST SPECIALIST Ot 202.88 03/29/2014 MCLAINPAIGE Matthews S COST SPECIALIST Ot 244.9 03/29/2014 MCLAINPAIGE Matthews S COST SPECIALIST Ot 250.00 03/29/2014 MCLAINPAIGE Matthews S COST SPECIALIST Ot 414.00 03/29/2014 PAIGE MCLAIN S COST SPECIALIST Ot 585.3 03/29/2014 MCLAINPAIGE Matthews S COST SPECIALIST Ot V45.82 03/29/2014 MCLAINPAIGE S COST SPECIALIST Ot V58.67 03/29/2014 MCLAINPAIGE Matthews S COST SPECIALIST Ot V58.69 03/29/2014 YUMIKO MASSEY, SEBASTIAN A Ot V58.69 03/29/2014 YUMIKO MASSEY, SEBASTIAN A Ot V58.83 03/29/2014 MCLAINPAIGE Matthews S COST SPECIALIST Ot 202.80 03/29/2014 MCLAINPAIGE Matthews S COST SPECIALIST Ot 244.9 03/29/2014 MCLAINPAIGE S COST SPECIALIST Ot 250.00 03/29/2014 MCLAINPAIGE S COST SPECIALIST Ot 272.4 03/29/2014 MCLAINPAIGE S COST SPECIALIST Ot 356.9 03/29/2014 MCLAINPAIGE S COST SPECIALIST Ot 403.90 03/29/2014 MCLAINPAIGE S COST SPECIALIST Ot 414.00 03/29/2014 MCLAINPAIGE S COST SPECIALIST Ot 585.3 03/29/2014 MCLAINPAIGE S COST SPECIALIST Ot 780.57 03/29/2014 MCLAINPAIGE S COST SPECIALIST Ot V45.82 03/29/2014 MCLAINPAIGE S COST SPECIALIST Ot V58.67 03/29/2014 MCLAINPAIGE S COST SPECIALIST Ot V58.69 03/29/2014 TRAVON AN COST SPECIALIST Ot 250.01 03/29/2014 TRAVON AN COST SPECIALIST Ot 272.4 03/29/2014 TRAVON AN COST SPECIALIST Ot 401.9 03/29/2014 YUMIKO MASSEY, SEBASTIAN A Ot 250.01 03/29/2014 YMUIKO MASSEY, SEBASTIAN A Ot V58.69 03/29/2014 YUMIKO MASSEY, SEBASTIAN A Ot V58.83 03/29/2014 YUMIKO MASSEY, SEBASTIAN A Ot 285.9 03/29/2014 YUMIKO MASSEY, SEBASTIAN A Ot 786.2 03/29/2014 YUMIKO MASSEY, SEBASTIAN A Ot 786.2 03/29/2014 TRAVON AN COST SPECIALIST Ot 285.9 03/29/2014 TRAVON AN COST SPECIALIST Ot 288.60 03/29/2014 YUMIKO MASSEY, SEBASTIAN A Ot 285.9 03/29/2014 YUMIKO MASSEY, SEBASTIAN A Ot 490 03/29/2014 YUMIKO MASSEY, SEBASTIAN A Ot 780.79 03/29/2014 ABRAHAM MARC DO Ot V72.84 03/29/2014 BRYNN ROBLEDO, TIESHA K Ot 250.92 03/29/2014 BRYNN ROBLEDO, TIESHA K Ot 272.4 03/29/2014 BRYNN ROBLEDO, TIESHA K Ot 401.9 03/29/2014 BRYNN ROBLEDO, TIESHA K Ot 414.01 03/29/2014 MCLAINPAIGE Matthews S COST SPECIALIST Ot 202.88 03/29/2014 MCLAINPAIGE S COST SPECIALIST Ot 244.9 03/29/2014 MCLAIN, CYNTHIAAH S COST SPECIALIST Ot 250.00 03/29/2014 MCLAIN, HILAH S COST SPECIALIST Ot 414.00 03/29/2014 MCLAIN, CYNTHIAAH S COST SPECIALIST Ot 585.3 03/29/2014 MCLAIN, HILAH S COST SPECIALIST Ot V58.67 03/29/2014 MCLAIN, CYNTHIAAH S COST SPECIALIST Ot V58.69 03/29/2014 MCLAINPAIGE S COST SPECIALIST Ot 202.80 03/29/2014 VIKTOR MASSEY, TEDDY Andres Ot 272.4 03/29/2014 VIKTOR MASSEY, TEDDY Andres Ot 401.9 03/29/2014 VIKTOR MASSEY, TEDDY Andres Ot 414.00 03/29/2014 VIKTOR MASSEY, TEDDY Andres Ot 780.2 03/29/2014 VIKTOR MASSEY, TEDDY Andres Ot 401.9 03/29/2014 VIKTOR MASSEY, TEDDY Andres Ot 414.00 03/29/2014 VIKTOR MASSEY, TEDDY Andres Ot 780.2 03/29/2014 MCLAINPAIGE S COST SPECIALIST Ot 202.80 03/29/2014 JAYNA, BOBAN N Ot [...] BOBAN N Ot V58.69 03/29/2014 TRAVON AN COST SPECIALIST Ot 721.0 03/29/2014 TRAVON AN COST SPECIALIST Ot 721.3 03/29/2014 TRAVON AN COST SPECIALIST Ot E000.8 03/29/2014 TRAVON AN COST SPECIALIST Ot E819.9 03/29/2014 TRAVON AN COST SPECIALIST Ot 250.00 03/29/2014 TRAVON AN COST SPECIALIST Ot 787.01 04/07/2014 NICOLE MASSEY, CORY A [...] 04/07/2014 SHIRA DORANTES Ot V58.69 04/07/2014 NATALIYATRAVON COST SPECIALIST Ot 721.0 04/07/2014 NATALIYATRAVON COST SPECIALIST Ot 721.3 04/07/2014 NATALIYATRAVON COST SPECIALIST Ot E000.8 04/07/2014 NATLAIYATRAVON COST SPECIALIST Ot E819.9 04/07/2014 TRAVON AN COST SPECIALIST Ot 250.00 04/07/2014 TRAVON AN COST SPECIALIST Ot 787.01 04/07/2014 Ot 241.0 04/07/2014 Ot [...] LIZETTE Caputo Ot 433.10 04/07/2014 PAIGE MCLAIN COST SPECIALIST Ot 202.80 04/07/2014 PAIGE MCLAIN COST SPECIALIST Ot 244.9 04/07/2014 PAIGE MCLAIN S COST SPECIALIST Ot 585.3 04/07/2014 PAIGE MCLAIN S COST SPECIALIST Ot 780.4 04/07/2014 PAIGE MCLAIN S COST SPECIALIST Ot 783.21 04/07/2014 PAIGE MCLAIN S COST SPECIALIST Ot V15.3 04/07/2014 PAIGE MCLAIN S COST SPECIALIST Ot V87.41 04/07/2014 PAIGE MCLAIN S COST SPECIALIST Ot 202.80 04/07/2014 YUMIKO MASSEY, SEBASTIAN A Ot 272.4 04/07/2014 YUMIKO MASSEY, SEBASTIAN A Ot 401.9 04/07/2014 YUMIKO MASSEY, SEBASTIAN A Ot V58.69 04/07/2014 TRAVON AN COST SPECIALIST Ot 719.45 04/07/2014 TRAVON AN COST SPECIALIST Ot 786.50 04/07/2014 TRAVON AN COST SPECIALIST Ot E000.8 04/07/2014 TRAVON AN COST SPECIALIST Ot E849.6 04/07/2014 TRAVON AN COST SPECIALIST Ot E888.9 04/07/2014 MCLAINPAIGE Matthews S COST SPECIALIST Ot 202.80 04/07/2014 PAIGE MCLAIN S COST SPECIALIST Ot 244.9 04/07/2014 MCLAINPAIGE Matthews S COST SPECIALIST Ot 250.00 04/07/2014 PAIGE MCLAIN S COST SPECIALIST Ot 272.4 04/07/2014 MCLAINPAIGE S COST SPECIALIST Ot 356.9 04/07/2014 MCLAIN HILAH S COST SPECIALIST Ot 403.90 04/07/2014 MCLAIN HILAH S COST SPECIALIST Ot 414.00 04/07/2014 MCLAIN HILAH S COST SPECIALIST Ot 585.3 04/07/2014 MCLAIN HILAH S COST SPECIALIST Ot 780.57 04/07/2014 MCLAINPAIGE Matthews S COST SPECIALIST Ot V15.3 04/07/2014 MCLAINPAIGE Matthews S COST SPECIALIST Ot V45.82 04/07/2014 MCLAINPAIGE Matthews S COST SPECIALIST Ot V58.67 04/07/2014 MCLAINPAIGE Matthews S COST SPECIALIST Ot V58.69 04/07/2014 MCLAINPAIGE Matthews S COST SPECIALIST Ot V87.41 04/07/2014 MCLAINPAIGE Matthews S COST SPECIALIST Ot 202.80 04/07/2014 SHIRA DORANTES Ot 202.80 04/07/2014 TRAVON AN COST SPECIALIST Ot 401.9 04/07/2014 TRAVON AN COST SPECIALIST Ot 518.0 04/07/2014 NICOLE MASSEY, CORY A Ot 591 04/07/2014 NICOLE MASSEY, CORY A Ot 599.70 04/07/2014 NICOLE MASSEY, CORY A Ot 600.00 04/07/2014 NICOLE MASSEY, CORY A Ot 257.2 04/07/2014 NICOLE MASSEY, CORY A Ot 599.70 04/07/2014 NICOLE MASSEY, CORY A Ot 600.00 04/07/2014 TRAVON AN COST SPECIALIST Ot 250.01 04/07/2014 MCLAINPAIGE Matthews S COST SPECIALIST Ot 202.80 04/07/2014 MCLAINPAIGE S COST SPECIALIST Ot 202.88 04/07/2014 MCLAINPAIGE S COST SPECIALIST Ot 244.9 04/07/2014 PAIGE MCLAIN S COST SPECIALIST Ot 250.00 04/07/2014 PAIGE MCLAIN S COST SPECIALIST Ot 414.00 04/07/2014 PAIGE MCLAIN S COST SPECIALIST Ot 585.3 04/07/2014 PAIGE MCLAIN S COST SPECIALIST Ot V45.82 04/07/2014 PAIGE MCLAIN S COST SPECIALIST Ot V58.67 04/07/2014 MCLAINPAIGE Mtathews S COST SPECIALIST Ot V58.69 04/07/2014 YUMIKO MASSEY, SEBASTIAN A Ot V58.69 04/07/2014 YUMIKO MASSEY, SEBASTIAN A Ot V58.83 04/07/2014 PAIGE MCLAIN S COST SPECIALIST Ot 202.80 04/07/2014 PAIGE MCLAIN S COST SPECIALIST Ot 244.9 04/07/2014 PAIGE MCLAIN S COST SPECIALIST Ot 250.00 04/07/2014 PAIGE MCLAIN S COST SPECIALIST Ot 272.4 04/07/2014 PAIGE MCLAIN S COST SPECIALIST Ot 356.9 04/07/2014 PAIGE MCLAIN S COST SPECIALIST Ot 403.90 04/07/2014 PAIGE MCLAIN S COST SPECIALIST Ot 414.00 04/07/2014 PAIGE MCLAIN S COST SPECIALIST Ot 585.3 04/07/2014 PAIGE MCLAIN S COST SPECIALIST Ot 780.57 04/07/2014 PAIGE MCLAIN S COST SPECIALIST Ot V45.82 04/07/2014 PAIGE MCLAIN S COST SPECIALIST Ot V58.67 04/07/2014 PAIGE MCLAIN S COST SPECIALIST Ot V58.69 04/07/2014 TRAVON AN COST SPECIALIST Ot 250.01 04/07/2014 TRAVON AN COST SPECIALIST Ot 272.4 04/07/2014 TRAVON AN COST SPECIALIST Ot 401.9 04/07/2014 YUMIKO MASSEY, SEBASTIAN A Ot 250.01 04/07/2014 YUMIKO MASSEY, SEBASTIAN A Ot V58.69 04/07/2014 YUMIKO MASSEY, SEBASTIAN A Ot V58.83 04/07/2014 YUMIKO MASSEY, SEBASTIAN A Ot 285.9 04/07/2014 YUMIKO MASSEY, SEBASTIAN A Ot 786.2 04/07/2014 YUMIKO MASSEY, SEBASTIAN A Ot 786.2 04/07/2014 TRAVON AN COST SPECIALIST Ot 285.9 04/07/2014 TRAVON AN COST SPECIALIST Ot 288.60 04/07/2014 YUMIKO MASSEY, SEBASTIAN Arvizu Ot 285.9 04/07/2014 YUMIKO MASSEY, SEBASTIAN Arvizu Ot 490 04/07/2014 SEBASTIAN ZELAYA MD Ot 780.79 04/07/2014 ABRAHAM MARC DO Ot V72.84 04/07/2014 TIESHA LOVE Ot 250.92 04/07/2014 RBYNN ROBLEDO TIESHA K Ot 272.4 04/07/2014 JIM LOVETH K Ot 401.9 04/07/2014 TIESHA LOVE K Ot 414.01 04/07/2014 PAIGE MCLAIN COST SPECIALIST Ot 202.88 04/07/2014 PAIGE MCLAIN COST SPECIALIST Ot 244.9 04/07/2014 PAIGE MCLAIN S COST SPECIALIST Ot 250.00 04/07/2014 PAIGE MCLAIN S COST SPECIALIST Ot 414.00 04/07/2014 PAIGE MCLAIN S COST SPECIALIST Ot 585.3 04/07/2014 PAIGE MCLAIN S COST SPECIALIST Ot V58.67 04/07/2014 PAIGE MCLAIN S COST SPECIALIST Ot V58.69 04/07/2014 PAIGE MCLAIN COST SPECIALIST Ot 202.80 04/07/2014 VIKTOR MASSEY, TEDDY Andres Ot 272.4 04/07/2014 VIKTOR MASSEY, TEDDY J Ot 401.9 04/07/2014 VIKTOR MASSEY, TEDDY Andres Ot 414.00 04/07/2014 VIKTOR MASSEY, TEDDY Andres Ot 780.2 04/07/2014 VIKTOR MASSEY, TEDDY Andres Ot 401.9 04/07/2014 VIKTOR MASSEY, TEDDY J Ot 414.00 04/07/2014 VIKTOR MASSEY, TEDDY Andres Ot 780.2 04/07/2014 PAIGE MCLAIN COST SPECIALIST Ot 202.80 04/07/2014 SHIRA DORANTES Ot 202.80 [...] BOBAN N Ot V58.69 04/07/2014 TRAVON AN COST SPECIALIST Ot 721.0 04/07/2014 TRAVON AN COST SPECIALIST Ot 721.3 04/07/2014 TRAVON AN COST SPECIALIST Ot E000.8 04/07/2014 TRAVON AN COST SPECIALIST Ot E819.9 04/07/2014 TRAVON AN COST SPECIALIST Ot 250.00 04/07/2014 TRAVON AN COST SPECIALIST Ot 787.01 04/11/2014 VIKTOR MASSEY, TEDDY Andres [...] BOBAN N Ot V58.69 05/17/2014 TRAVON AN COST SPECIALIST Ot 721.0 05/17/2014 TRAVON AN COST SPECIALIST Ot 721.3 05/17/2014 TRAVON AN COST SPECIALIST Ot E000.8 05/17/2014 TRAVON AN COST SPECIALIST Ot E819.9 05/17/2014 TRAVON AN COST SPECIALIST Ot 250.00 05/17/2014 TRAVON AN COST SPECIALIST Ot 787.01 05/17/2014 Ot 202.80 05/17/2014 Ot [...] LIZETTE Caputo Ot 433.10 06/18/2014 PAIGE MCLAIN COST SPECIALIST Ot 202.80 06/18/2014 MCLAINPAIGE Matthews S COST SPECIALIST Ot 244.9 06/18/2014 PAIGE MCLAIN S COST SPECIALIST Ot 585.3 06/18/2014 PAIGE MCLAIN S COST SPECIALIST Ot 780.4 06/18/2014 MCLAINPAIGE Matthews S COST SPECIALIST Ot 783.21 06/18/2014 MCLAINPAIGE S COST SPECIALIST Ot V15.3 06/18/2014 MCLAINPAIGE S COST SPECIALIST Ot V87.41 06/18/2014 PAIGE MCLAIN S COST SPECIALIST Ot 202.80 06/18/2014 YUMIKO MASSEY, SEBASTIAN A Ot 272.4 06/18/2014 YUMIKO MASSEY, SEBASTIAN A Ot 401.9 06/18/2014 YUMIKO MASSEY, SEBASTIAN Arvizu Ot V58.69 06/18/2014 TRAVON AN COST SPECIALIST Ot 719.45 06/18/2014 TRAVON AN COST SPECIALIST Ot 786.50 06/18/2014 TRAVON AN COST SPECIALIST Ot E000.8 06/18/2014 TRAVON AN COST SPECIALIST Ot E849.6 06/18/2014 TRAVON AN COST SPECIALIST Ot E888.9 06/18/2014 PAIGE MCLAIN S COST SPECIALIST Ot 202.80 06/18/2014 MCLAINPAIGE S COST SPECIALIST Ot 244.9 06/18/2014 MCLAIN HILAH S COST SPECIALIST Ot 250.00 06/18/2014 MCLAIN, HILAH S COST SPECIALIST Ot 272.4 06/18/2014 MCLAIN, HILAH S COST SPECIALIST Ot 356.9 06/18/2014 MCLAIN, HILAH S COST SPECIALIST Ot 403.90 06/18/2014 MCLAIN, HILAH S COST SPECIALIST Ot 414.00 06/18/2014 MCLAIN, HILAH S COST SPECIALIST Ot 585.3 06/18/2014 MCLAIN HILAH S COST SPECIALIST Ot 780.57 06/18/2014 MCLAIN HILAH S COST SPECIALIST Ot V15.3 06/18/2014 MCLAIN HILBRODIE S COST SPECIALIST Ot V45.82 06/18/2014 MCLAINPAIGE S COST SPECIALIST Ot V58.67 06/18/2014 MCLAIN, HILAH S COST SPECIALIST Ot V58.69 06/18/2014 MCLAIN, HILAH S COST SPECIALIST Ot V87.41 06/18/2014 MCLAIN, HILAH S COST SPECIALIST Ot 202.80 06/18/2014 JAYNAMARYJALEESA Blevins Ot 202.80 06/18/2014 TRAVON AN COST SPECIALIST Ot 401.9 06/18/2014 TRAVON AN COST SPECIALIST Ot 518.0 06/18/2014 NICOLE MASSEY, CORY A Ot 591 06/18/2014 NICOLE MASSEY, CORY A Ot 599.70 06/18/2014 NICOLE MASSEY, CORY A Ot 600.00 06/18/2014 NICOLE MASSEY, CORY A Ot 257.2 06/18/2014 NICOLE MASSEY, CORY A Ot 599.70 06/18/2014 NICOLE MASSEY, CORY A Ot 600.00 06/18/2014 TRAVON AN COST SPECIALIST Ot 250.01 06/18/2014 MCLAINPAIGE S COST SPECIALIST Ot 202.80 06/18/2014 MCLAINPAIGE Matthews S COST SPECIALIST Ot 202.88 06/18/2014 MCLAINPAIGE Matthews S COST SPECIALIST Ot 244.9 06/18/2014 MCLAINPAIGE S COST SPECIALIST Ot 250.00 06/18/2014 MCLAINPAIGE S COST SPECIALIST Ot 414.00 06/18/2014 MCLAINPAIGE Matthews S COST SPECIALIST Ot 585.3 06/18/2014 MCLAINPAGIE S COST SPECIALIST Ot V45.82 06/18/2014 MCLAINPAIGE S COST SPECIALIST Ot V58.67 06/18/2014 MCLAINPAIGE S COST SPECIALIST Ot V58.69 06/18/2014 YUMIKO MASSEY, SEBASTIAN A Ot V58.69 06/18/2014 YUMIKO MASSEY, SEBASTIAN A Ot V58.83 06/18/2014 MCLAINPAIGE S COST SPECIALIST Ot 202.80 06/18/2014 MCLAINPAIGE S COST SPECIALIST Ot 244.9 06/18/2014 MCLAINPAIGE Matthews S COST SPECIALIST Ot 250.00 06/18/2014 MCLAINPAIGE S COST SPECIALIST Ot 272.4 06/18/2014 MCLAINPAIGE S COST SPECIALIST Ot 356.9 06/18/2014 MCLAINPAIGE Matthews S COST SPECIALIST Ot 403.90 06/18/2014 MCLAINPAIGE Matthews S COST SPECIALIST Ot 414.00 06/18/2014 MCLAINPAIGE Matthews S COST SPECIALIST Ot 585.3 06/18/2014 MCLAINPAIGE Mathtews S COST SPECIALIST Ot 780.57 06/18/2014 MCLAINPAIGE Matthews S COST SPECIALIST Ot V45.82 06/18/2014 MCLAINPAIGE S COST SPECIALIST Ot V58.67 06/18/2014 MCLAINPAIGE S COST SPECIALIST Ot V58.69 06/18/2014 TRAVON AN COST SPECIALIST Ot 250.01 06/18/2014 TRAVON AN COST SPECIALIST Ot 272.4 06/18/2014 TRAVON AN COST SPECIALIST Ot 401.9 06/18/2014 YUMIKO MASSEY, SEBASTIAN Arvizu Ot 250.01 06/18/2014 YUMIKO MASSEY, SEBASTIAN Arvizu Ot V58.69 06/18/2014 YUMIKO MASSEY, SEBASTIAN Arvizu Ot V58.83 06/18/2014 YUMIKO MASSEY, SEBASTIAN A Ot 285.9 06/18/2014 YUMIKO MASSEY, SEBASTIAN A Ot 786.2 06/18/2014 YUMIKO MASSEY, SEBASTIAN Arvizu Ot 786.2 06/18/2014 TRAVON AN COST SPECIALIST Ot 285.9 06/18/2014 TRAVON AN COST SPECIALIST Ot 288.60 06/18/2014 YUMIKO MASSEY, SEBASTIAN A Ot 285.9 06/18/2014 YUMIKO MASSEY, SEBASTIAN Arvizu Ot 490 06/18/2014 YUMIKO MASSEY, SEBASTIAN Arvizu Ot 780.79 06/18/2014 ABRAHAM MARC DO Ot V72.84 06/18/2014 BRYNN ROBLEDO, TIESHA K Ot 250.92 06/18/2014 TIESHA LOVE K Ot 272.4 06/18/2014 BRYNN ROBLEDO, TIESHA K Ot 401.9 06/18/2014 TIESHA LOVE K Ot 414.01 06/18/2014 PAIGE MCLAIN COST SPECIALIST Ot 202.88 06/18/2014 PAIGE MCLAIN COST SPECIALIST Ot 244.9 06/18/2014 PAIGE MCLAIN S COST SPECIALIST Ot 250.00 06/18/2014 PAIGE MCLAIN S COST SPECIALIST Ot 414.00 06/18/2014 PAIGE MCLAIN S COST SPECIALIST Ot 585.3 06/18/2014 PAIGE MCLAIN S COST SPECIALIST Ot V58.67 06/18/2014 PAIGE MCLAIN S COST SPECIALIST Ot V58.69 06/18/2014 PAIGE MCLAIN COST SPECIALIST Ot 202.80 06/18/2014 VIKTOR MASSEY, TEDDY Andres Ot 272.4 06/18/2014 VIKTOR MASSEY, TEDDY J Ot 401.9 06/18/2014 VIKTOR MASSEY, TEDDY J Ot 414.00 06/18/2014 VIKTOR MASSEY, TEDDY Andres Ot 780.2 06/18/2014 VIKTOR MASSEY, TEDDY Andres Ot 401.9 06/18/2014 VIKTOR MASSEY, TEDDY J Ot 414.00 06/18/2014 VIKTOR MASSEY, TEDDY Andres Ot 780.2 06/18/2014 MCLAINPAIGE Matthews COST SPECIALIST Ot 202.80 06/18/2014 Ot 202.88 06/18/2014 Ot [...] BOBAN N Ot V58.69 06/18/2014 TRAVON AN COST SPECIALIST Ot 721.0 06/18/2014 TRAVON AN COST SPECIALIST Ot 721.3 06/18/2014 TRAVON AN COST SPECIALIST Ot E000.8 06/18/2014 TRAVON AN COST SPECIALIST Ot E819.9 06/18/2014 TRAVON AN COST SPECIALIST Ot 250.00 06/18/2014 TRAVON AN COST SPECIALIST Ot 787.01 06/18/2014 Ot 202.80 06/18/2014 Ot [...] JADE A Ot 272.4 06/23/2014 GELLENDER DO, AJDE A Ot 285.9 06/23/2014 GELLENDER DO, JADE [...] GELLENDER DOJADE Ot 414.01 CORONARY ATHEROSCLEROSIS OF [place] CORON 06/29/2014 GELLENDER DOJADE Ot 433.10 CAROTID [...] DORANTES N Ot V58.69 06/29/2014 TRAVON AN COST SPECIALIST Ot 721.0 06/29/2014 TRAVON AN COST SPECIALIST Ot 721.3 06/29/2014 TRAVON AN COST SPECIALIST Ot E000.8 06/29/2014 TRAVON AN COST SPECIALIST Ot E819.9 06/29/2014 TRAVON AN COST SPECIALIST Ot 250.00 06/29/2014 TRAVON AN COST SPECIALIST Ot 787.01 06/29/2014 Ot 202.80 06/29/2014 Ot 250.00 06/29/2014 Ot 401.9 06/29/2014 Ot 780.79 06/29/2014 Ot 784.0 06/29/2014 Ot 787.02 06/29/2014 Ot V45.82 06/29/2014 Ot V57.89 07/01/2014 YUMIKO MSASEY, SEBASTIAN Arvizu Ot 202.80 07/01/2014 YUMIKO MASSEY, SEBASTIAN Arvizu Ot 245.2 07/01/2014 YUMIKO MASSEY, SEBASTIAN Arvizu Ot 250.00 07/01/2014 YUMIKO MASSEY, SEBASTIAN Arvizu Ot 285.9 07/01/2014 YUMIKO MASSEY, SEBASTIAN Arvizu Ot 401.9 07/01/2014 YUMIKO MASSEY, SEBASTIAN Arvizu Ot 414.01 07/01/2014 YUMIKO MASSEY, SEBASTIAN Arvizu Ot 486 07/01/2014 YUMIKO MASSEY, SEBASTIAN Arvizu Ot 530.81 07/01/2014 YUMIKO MASSEY, SEBASTIAN Arvizu Ot V58.61 07/01/2014 SEBASTIAN ZELAYA MD Ot V87.41 07/04/2014 YUMIKO MASSEY, SEBASTIAN Arvizu Ot 202.80 OTH LYMPHOMAS EXTRANODAL SOLID ORGAN U 07/04/2014 SEBASTIAN ZELAYA MD Ot 245.2 CHR LYMPHOCYT THYROIDIT 07/04/2014 YUMIKO MASSEY, SEBASTIAN Arvizu Ot 250.00 DIAB CÉSAR WO COMPL, TYPE II OR UNSPEC TY 07/04/2014 SEBASTIAN ZELAYA MD Ot 272.4 HYPERLIPIDEMIA NEC/NOS 07/04/2014 SEBASTIAN ZELAYA MD Ot 276.7 HYPERPOTASSEMIA 07/04/2014 SEBASTIAN ZELAYA MD Ot 285.9 ANEMIA NOS 07/04/2014 SEBASTIAN ZELAYA MD Ot 300.00 ANXIETY STATE NOS 07/04/2014 SEBASTIAN ZELAYA MD Ot 311 DEPRESSIVE DISORDER NEC 07/04/2014 SEBASTIAN ZELAYA MD Ot 401.9 07/04/2014 SEBASTIAN ZELAYA MD Ot 403.90 HYPTNSV CHR KID DIS, UNSPEC, W CHR KD ST 07/04/2014 SEBASTIAN ZELAYA MD Ot 414.01 CORONARY ATHEROSCLEROSIS OF [place] CORON 07/04/2014 SEBASTIAN ZELAYA MD Ot 433.10 CAROTID ARTERY OCCLUSION W O CEREBRAL IN 07/04/2014 SEBASTIAN ZELAYA MD Ot 433.30 MULT BILTRAL ARTERY OCCLUSION WO CEREBRA 07/04/2014 SEBASTIAN ZELAYA MD Ot 466.0 ACUTE BRONCHITIS 07/04/2014 SEBASTIAN ZELAYA MD Ot 486 PNEUMONIA, ORGANISM NOS 07/04/2014 SEBASTIAN ZELAYA MD Ot 518.0 PULMONARY COLLAPSE 07/04/2014 SEBASTIAN ZELAYA MD Ot 530.81 ESOPHAGEAL REFLUX 07/04/2014 SEBASTIAN ZELAYA MD Ot 584.9 ACUTE RENAL FAILURE, UNSPECIFIED 07/04/2014 SEBASTIAN ZELAYA MD Ot 585.9 CHRONIC KIDNEY DISEASE, UNSPECIFIED 07/04/2014 SEBASTIAN ZELAYA MD Ot 596.54 NEUROGENIC BLADDER, NOT OTHERWISE SPECIF 07/04/2014 SEBASTIAN ZELAYA MD Ot 600.01 HYPERTROPHY (BENIGN) OF PROSTATE W URINA 07/04/2014 SEBASTIAN ZELAYA MD Ot 782.3 EDEMA 07/04/2014 SEBASTIAN ZELAYA MD Ot 786.52 PAINFUL RESPIRATION 07/04/2014 SEBASTIAN ZELAYA MD Ot 788.20 RETENTION OF URINE NOS 07/04/2014 SEBASTIAN ZELAYA MD Ot V45.82 PERCUTANEOUS TRANSLUM CORON ANGIOPLASTY 07/04/2014 SEBASTIAN ZELAYA MD Ot V58.61 ANTICOAGULANTS,LT,CURRENT USE 07/04/2014 SEBASTIAN ZELAYA MD Ot V58.67 LONG-TERM (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 07/04/2014 SEBASTIAN ZELAYA MD Ot V87.41 PERSONAL HISTORY OF ANTINEOPLASTIC CHEMO 07/06/2014 SEBASTIAN ZELAYA MD Ot 202.80 OTH LYMPHOMAS EXTRANODAL SOLID ORGAN U 07/06/2014 SEBASTIAN ZELAYA MD Ot 244.0 POSTSURGICAL HYPOTHYROID 07/06/2014 SEBASTIAN ZELAYA MD Ot 250.00 DIAB CÉSAR WO COMPL, TYPE II OR UNSPEC TY 07/06/2014 SEBASTIAN ZELAYA MD Ot 275.2 DIS MAGNESIUM METABOLISM 07/06/2014 SEBASTIAN ZELAYA MD Ot 276.7 HYPERPOTASSEMIA 07/06/2014 SEBASTIAN ZELAYA MD Ot 285.9 ANEMIA NOS 07/06/2014 SEBASTIAN ZELAYA MD Ot 403.90 HYPTNSV CHR KID DIS, UNSPEC, W CHR KD ST 07/06/2014 SEBASTIAN ZELAYA MD Ot 414.01 CORONARY ATHEROSCLEROSIS OF [place] CORON 07/06/2014 SEBASTIAN ZELAYA MD Ot 486 PNEUMONIA, ORGANISM NOS 07/06/2014 SEBASTIAN ZELAYA MD Ot 491.22 OBSTRUCTIVE CHRONIC BRONCHITIS WITH ACUT 07/06/2014 SEBASTIAN ZELAYA MD Ot 514 PULM CONGEST/HYPOSTASIS 07/06/2014 SEBASTIAN ZELAYA MD Ot 518.0 PULMONARY COLLAPSE 07/06/2014 SEBASTIAN ZELAYA MD Ot 518.82 OTHER PULMONARY INSUFFICIENCY, NEC 07/06/2014 SEBASTIAN ZELAYA MD Ot 584.9 ACUTE RENAL FAILURE, UNSPECIFIED 07/06/2014 SEBASTIAN ZELAYA MD Ot 585.4 CHRONIC KIDNEY DISEASE, STAGE IV (SEVERE 07/06/2014 SEBASTIAN ZELAYA MD Ot 600.01 HYPERTROPHY (BENIGN) OF PROSTATE W URINA 07/06/2014 SEBASTIAN ZELAYA MD Ot 782.3 EDEMA 07/06/2014 SEBASTIAN ZELAYA MD Ot 788.20 RETENTION OF URINE NOS 07/06/2014 SEBASTIAN ZELAYA MD Ot V15.82 HISTORY OF TOBACCO USE 07/06/2014 SEBASTIAN ZELAYA MD Ot V58.67 LONG-TERM (CURRENT) USE OF [...] Ot V45.82 PERCUTANEOUS TRANSLUM CORON ANGIOPLASTY 07/18/2014 JYANA, BOBAN N Ot V58.67 LONG-TERM (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 07/18/2014 JAYNA, BOBAN N Ot V58.69 OTH MED,LT,CURRENT USE 07/20/2014 TRAVON AN COST SPECIALIST Ot 250.00 07/20/2014 TRAVON AN COST SPECIALIST Ot 458.9 07/20/2014 TRAVON AN COST SPECIALIST Ot 585.4 07/20/2014 TRAVON AN COST SPECIALIST Ot 780.4 07/21/2014 JAYNA, BOBAN N Ot [...] Caputo Ot 433.10 07/25/2014 MCLAIN HILAH S COST SPECIALIST Ot 202.80 07/25/2014 MCLAIN, HILAH S COST SPECIALIST Ot 244.9 07/25/2014 MCLAIN, HILAH S COST SPECIALIST Ot 585.3 07/25/2014 MCLAIN, HILAH S COST SPECIALIST Ot 780.4 07/25/2014 MCLAIN, HILAH S COST SPECIALIST Ot 783.21 07/25/2014 MCLAIN, HILAH S COST SPECIALIST Ot V15.3 07/25/2014 MCLAIN HILAH S COST SPECIALIST Ot V87.41 07/25/2014 MCLAIN HILAH S COST SPECIALIST Ot 202.80 07/25/2014 YUMIKO MASSEY, SEBASTIAN A Ot 272.4 07/25/2014 YUMIKO MASSEY, SEBASTIAN A Ot 401.9 07/25/2014 YUMIKO MASSEY, SEBASTIAN A Ot V58.69 07/25/2014 TRAVON AN COST SPECIALIST Ot 719.45 07/25/2014 TRAVON AN COST SPECIALIST Ot 786.50 07/25/2014 TRAVON AN COST SPECIALIST Ot E000.8 07/25/2014 TRAVON AN COST SPECIALIST Ot E849.6 07/25/2014 TRAVON AN COST SPECIALIST Ot E888.9 07/25/2014 MCLAIN, HILAH S COST SPECIALIST Ot 202.80 07/25/2014 MCLAIN, HILAH S COST SPECIALIST Ot 244.9 07/25/2014 MCLAIN, HILAH S COST SPECIALIST Ot 250.00 07/25/2014 MCLAIN, HILAH S COST SPECIALIST Ot 272.4 07/25/2014 MCLAIN, HILAH S COST SPECIALIST Ot 356.9 07/25/2014 MCLAIN, HILAH S COST SPECIALIST Ot 403.90 07/25/2014 MCLAIN HILAH S COST SPECIALIST Ot 414.00 07/25/2014 MCLAIN, HILAH S COST SPECIALIST Ot 585.3 07/25/2014 PAIGE MCLAIN S COST SPECIALIST Ot 780.57 07/25/2014 PAIGE MCLAIN S COST SPECIALIST Ot V15.3 07/25/2014 MCLAINPAIGE Matthews S COST SPECIALIST Ot V45.82 07/25/2014 MCLAINPAIGE Matthews S COST SPECIALIST Ot V58.67 07/25/2014 MCLAINPAIGE S COST SPECIALIST Ot V58.69 07/25/2014 MCLAINPAIGE Matthews S COST SPECIALIST Ot V87.41 07/25/2014 PAIGE MCLAIN S COST SPECIALIST Ot 202.80 07/25/2014 JAYNASHIRA CONRAD Gen Ot 202.80 07/25/2014 TRAVON AN COST SPECIALIST Ot 401.9 07/25/2014 TRAVON AN COST SPECIALIST Ot 518.0 07/25/2014 NICOLE MASSEY, CORY A Ot 591 07/25/2014 NICOLE MASSEY, CORY A Ot 599.70 07/25/2014 NICOLE MASSEY, CORY A Ot 600.00 07/25/2014 NICOLE MASSEY, CORY A Ot 257.2 07/25/2014 NICOLE MASSEY, CORY A Ot 599.70 07/25/2014 NICOLE MASSEY, CORY A Ot 600.00 07/25/2014 TRAVON AN COST SPECIALIST Ot 250.01 07/25/2014 MCLAINPAIGE Matthews S COST SPECIALIST Ot 202.80 07/25/2014 MCLAINPAIGE Matthews S COST SPECIALIST Ot 202.88 07/25/2014 MCLAINPAIGE Matthews S COST SPECIALIST Ot 244.9 07/25/2014 MCLAINPAIGE Matthews S COST SPECIALIST Ot 250.00 07/25/2014 MCLAINPAIGE Matthews S COST SPECIALIST Ot 414.00 07/25/2014 MCLAINPAIGE Matthews S COST SPECIALIST Ot 585.3 07/25/2014 MCLAINPAIGE Matthews S COST SPECIALIST Ot V45.82 07/25/2014 MCLAINPAIGE Matthews S COST SPECIALIST Ot V58.67 07/25/2014 MCLAINPAIGE S COST SPECIALIST Ot V58.69 07/25/2014 YUMIKO MASSEY, SEBASTIAN Arvizu Ot V58.69 07/25/2014 YUMIKO MASSEY, SEBASTIAN Arvizu Ot V58.83 07/25/2014 MCLAINPAIGE Matthews COST SPECIALIST Ot 202.80 07/25/2014 MCLAINPAIGE Matthews S COST SPECIALIST Ot 244.9 07/25/2014 MCLAINPAIGE Matthews S COST SPECIALIST Ot 250.00 07/25/2014 MCLAINPAIGE S COST SPECIALIST Ot 272.4 07/25/2014 MCLAINPAIGE S COST SPECIALIST Ot 356.9 07/25/2014 MCLAINPAIGE S COST SPECIALIST Ot 403.90 07/25/2014 MCLAINPAIGE S COST SPECIALIST Ot 414.00 07/25/2014 MCLAINPAIGE S COST SPECIALIST Ot 585.3 07/25/2014 MCLAINPAIGE S COST SPECIALIST Ot 780.57 07/25/2014 MCLAINPAIGE Matthews S COST SPECIALIST Ot V45.82 07/25/2014 MCLAINPAIGE Matthews S COST SPECIALIST Ot V58.67 07/25/2014 MCLAINPAIGE S COST SPECIALIST Ot V58.69 07/25/2014 TRAVON AN COST SPECIALIST Ot 250.01 07/25/2014 TRAVON AN COST SPECIALIST Ot 272.4 07/25/2014 TRAVON AN COST SPECIALIST Ot 401.9 07/25/2014 YUMIKO MASSEY, SEBASTIAN A Ot 250.01 07/25/2014 YUMIKO MASSEY, SEBASTIAN A Ot V58.69 07/25/2014 YUMIKO MASSEY, SEBASTIAN A Ot V58.83 07/25/2014 YUMIKO MASSEY, SEBASTIAN A Ot 285.9 07/25/2014 YUMIKO MASSEY, SEBASTIAN A Ot 786.2 07/25/2014 YUMIKO MASSEY, SEBASTIAN A Ot 786.2 07/25/2014 TRAVON AN COST SPECIALIST Ot 285.9 07/25/2014 TRAVON AN COST SPECIALIST Ot 288.60 07/25/2014 YUMIKO MASSEY, SEBASTIAN A Ot 285.9 07/25/2014 YUMIKO MASSEY, SEBASTIAN A Ot 490 07/25/2014 YUMIKO MASSEY, SEBASTIAN A Ot 780.79 07/25/2014 ABRAHAM MARC DO Ot V72.84 07/25/2014 TIESHA LOVE Ot 250.92 07/25/2014 TIESHA LOVE Ot 272.4 07/25/2014 TIESHA LOVE Ot 401.9 07/25/2014 BRYNN ROBLEDO TIESHA Dinah Ot 414.01 07/25/2014 MCLAINPAIGE Matthews COST SPECIALIST Ot 202.88 07/25/2014 MCLAINPAIGE Matthews S COST SPECIALIST Ot 244.9 07/25/2014 MCLAINPAIGE Matthews S COST SPECIALIST Ot 250.00 07/25/2014 MCLAINPAIGE Matthews S COST SPECIALIST Ot 414.00 07/25/2014 MCLAINPAIGE Matthews S COST SPECIALIST Ot 585.3 07/25/2014 MCLAINPAIGE Matthews S COST SPECIALIST Ot V58.67 07/25/2014 MCLAINPAIGE Matthews S COST SPECIALIST Ot V58.69 07/25/2014 MCLAINPAIGE Matthews S COST SPECIALIST Ot 202.80 07/25/2014 VIKTOR MASSEY, TEDDY Andres Ot 272.4 07/25/2014 VIKTOR MASSEY, TEDDY J Ot 401.9 07/25/2014 VIKTOR MASSEY, TEDDY Andres Ot 414.00 07/25/2014 VIKTOR MASSEY, TEDDY Andres Ot 780.2 07/25/2014 VIKTOR MASSEY, TEDDY Andres Ot 401.9 07/25/2014 VIKTOR MASSEY, TEDDY Andres Ot 414.00 07/25/2014 VIKTOR MASSEY, TEDDY Andres Ot 780.2 07/25/2014 MCLAINPAIGE Matthews COST SPECIALIST Ot 202.80 07/25/2014 Ot 202.88 07/25/2014 Ot [...] MASSEY, CORY Arvizu Ot 593.9 07/25/2014 NATALIYATRAVON COST SPECIALIST Ot 721.0 07/25/2014 NATALIYA TRAVON Caputo COST SPECIALIST Ot 721.3 07/25/2014 NATALIYA TRAVON Caputo COST SPECIALIST Ot E000.8 07/25/2014 NATALIYA TRAVON M COST SPECIALIST Ot E819.9 07/25/2014 NATALIYA TRAVON Caputo COST SPECIALIST Ot 250.00 07/25/2014 NATALIYATRAVON COST SPECIALIST Ot 787.01 07/25/2014 Ot 202.80 07/25/2014 Ot [...] N Ot V58.69 07/25/2014 NATALIYA TRAVON Caputo COST SPECIALIST Ot 250.00 07/25/2014 TRAVON AN COST SPECIALIST Ot 458.9 07/25/2014 EMORY ANSHARITA Caputo COST SPECIALIST Ot 585.4 07/25/2014 TRAVON AN COST SPECIALIST Ot 780.4 08/01/2014 TRAVON AN COST SPECIALIST Ot 401.9 08/02/2014 TRAVON AN COST SPECIALIST Ot 401.9 08/05/2014 TRAVON AN COST SPECIALIST Ot 250.01 08/05/2014 TRAVON AN COST SPECIALIST Ot 401.9 08/05/2014 TRAVON AN COST SPECIALIST Ot V58.69 08/05/2014 TRAVON AN COST SPECIALIST Ot V72.62 08/05/2014 NATALIYATRAVON COST SPECIALIST Ot 250.01 08/05/2014 NATALIYATRAVON COST SPECIALIST Ot 401.9 08/05/2014 ANTRAVON COST SPECIALIST Ot V58.69 08/05/2014 TRAVON AN COST SPECIALIST Ot V72.62 08/05/2014 OTHER, UNLISTED Ot 250.00 08/05/2014 OTHER, UNLISTED Ot 401.9 08/05/2014 OTHER, UNLISTED Ot 491.21 08/05/2014 OTHER, UNLISTED Ot 593.9 08/05/2014 OTHER, UNLISTED Ot 250.00 08/05/2014 OTHER, UNLISTED Ot 401.9 08/05/2014 OTHER, UNLISTED Ot 491.21 08/05/2014 OTHER, UNLISTED Ot 593.9 08/15/2014 DAVID CEJA DO Ot 327.23 08/15/2014 DAVID CEJA DO Ot 486 08/18/2014 NATALIYATRAVON COST SPECIALIST Ot 250.00 08/18/2014 NATALIYATRAVON COST SPECIALIST Ot 458.9 08/18/2014 NATALIYATRAVON COST SPECIALIST Ot 585.4 08/18/2014 NATALIYATRAVON COST SPECIALIST Ot 780.4 08/18/2014 NATALIYATRAVON COST SPECIALIST Ot 401.9 08/22/2014 JAYNA, BOBAN N Ot [...] DORANTES N Ot V58.69 08/25/2014 TRAVON AN COST SPECIALIST Ot 250.00 08/25/2014 TRAVON AN COST SPECIALIST Ot 458.9 08/25/2014 TRAVON AN COST SPECIALIST Ot 585.4 08/25/2014 TRAVON AN COST SPECIALIST Ot 780.4 08/25/2014 MARCIAL , DAVID M Ot 327.23 08/25/2014 MARCIAL DO, DAVID M Ot 486 08/26/2014 ANTRAVON COST SPECIALIST Ot 250.01 08/26/2014 ANTRAVON COST SPECIALIST Ot 401.9 08/26/2014 TRAVON AN COST SPECIALIST Ot V58.69 08/26/2014 TRAVON AN COST SPECIALIST Ot V72.62 09/07/2014 OTHER, UNLISTED Ot 250.00 [...] GEOVANNA Jaquez Ot 707.14 10/12/2014 ROSS QUIÑONES CONSTRUCTION EQUIPMENT OPERATOR-C Ot 403.10 10/12/[address] [place] CONSTRUCTION EQUIPMENT OPERATOR-C Ot 584.9 10/12/2014 NURIAROSS CONSTRUCTION EQUIPMENT OPERATOR-C Ot 585.4 10/12/2014 NURIAROSS CONSTRUCTION EQUIPMENT OPERATOR-C Ot 782.3 10/14/2014 YOBANI MASSEY, GEOVANNA Jaquez Ot 443.9 10/14/2014 YOBANI MASSEY, GEOVANNA Jaquez Ot 707.15 10/14/2014 YOBANI MASSEY, GEOVANNA Jaquez Ot 250.80 10/14/2014 YOBANI MASSEY, GEOVANNA Jaquez Ot 707.14 10/19/2014 MARY DORANTESAN N Ot 202.80 OTH LYMPHOMAS EXTRANODAL [...] Caputo Ot 433.10 10/27/2014 MCLAIN, HILAH S COST SPECIALIST Ot 202.80 10/27/2014 MCLAIN HILAH S COST SPECIALIST Ot 244.9 10/27/2014 MCLAIN HILAH S COST SPECIALIST Ot 585.3 10/27/2014 MCLAIN, HILAH S COST SPECIALIST Ot 780.4 10/27/2014 MCLAIN HILAH S COST SPECIALIST Ot 783.21 10/27/2014 MCLAIN HILAH S COST SPECIALIST Ot V15.3 10/27/2014 MCLAIN HILAH S COST SPECIALIST Ot V87.41 10/27/2014 MCLAIN, HILAH S COST SPECIALIST Ot 202.80 10/27/2014 YUMIKO MASSEY, SEBASTIAN A Ot 272.4 10/27/2014 YUMIKO MASSEY, SEBASTIAN A Ot 401.9 10/27/2014 YUMIKO MASSEY, SEBASTIAN A Ot V58.69 10/27/2014 TRAVON AN COST SPECIALIST Ot 719.45 10/27/2014 TRAVON AN COST SPECIALIST Ot 786.50 10/27/2014 TRAVON AN COST SPECIALIST Ot E000.8 10/27/2014 TRAVON AN COST SPECIALIST Ot E849.6 10/27/2014 TRAVON AN COST SPECIALIST Ot E888.9 10/27/2014 MCLAIN HILAH S COST SPECIALIST Ot 202.80 10/27/2014 MCLAIN HILAH S COST SPECIALIST Ot 244.9 10/27/2014 MCLAIN HILAH S COST SPECIALIST Ot 250.00 10/27/2014 MCLAIN HILAH S COST SPECIALIST Ot 272.4 10/27/2014 MCLAIN HILAH S COST SPECIALIST Ot 356.9 10/27/2014 MCLAIN, HILAH S COST SPECIALIST Ot 403.90 10/27/2014 MCLAINPAIGE Matthews S COST SPECIALIST Ot 414.00 10/27/2014 MCLAINPAIGE Matthews S COST SPECIALIST Ot 585.3 10/27/2014 MCLAINPAIGE Matthews S COST SPECIALIST Ot 780.57 10/27/2014 MCLAINPAIGE Matthews S COST SPECIALIST Ot V15.3 10/27/2014 MCLAINPAIGE S COST SPECIALIST Ot V45.82 10/27/2014 MCLAINPAIGE S COST SPECIALIST Ot V58.67 10/27/2014 MCLAINPAIGE S COST SPECIALIST Ot V58.69 10/27/2014 MCLAINPAIGE Matthews S COST SPECIALIST Ot V87.41 10/27/2014 PAIGE MCLAIN S COST SPECIALIST Ot 202.80 10/27/2014 SHIRA DORANTES Ot 202.80 10/27/2014 TRAVON AN COST SPECIALIST Ot 401.9 10/27/2014 TRAVON AN COST SPECIALIST Ot 518.0 10/27/2014 NICOLE MASSEY, CORY A Ot 591 10/27/2014 NICOLE MASSEY, CORY A Ot 599.70 10/27/2014 NICOLE MASSEY, CORY A Ot 600.00 10/27/2014 NICOLE MASSEY, CORY A Ot 257.2 10/27/2014 NICOLE MASSEY, CORY A Ot 599.70 10/27/2014 NICOLE MASSEY, CORY A Ot 600.00 10/27/2014 TRAVON AN COST SPECIALIST Ot 250.01 10/27/2014 PAIGE MCLAIN S COST SPECIALIST Ot 202.80 10/27/2014 MCLAINPAIGE Matthews S COST SPECIALIST Ot 202.88 10/27/2014 MCLAINPAIGE Matthews S COST SPECIALIST Ot 244.9 10/27/2014 MCLAINPAIGE S COST SPECIALIST Ot 250.00 10/27/2014 MCLAINPAIGE S COST SPECIALIST Ot 414.00 10/27/2014 MCLAINPAIGE Matthews S COST SPECIALIST Ot 585.3 10/27/2014 MCLAINPAIGE S COST SPECIALIST Ot V45.82 10/27/2014 MCLAINPAIGE S COST SPECIALIST Ot V58.67 10/27/2014 MCLAINPAIGE S COST SPECIALIST Ot V58.69 10/27/2014 YUMIKO MASSEY, SEBASTIAN A Ot V58.69 10/27/2014 YUMIKO MASSEY, SEBASTIAN A Ot V58.83 10/27/2014 MCLAINPAIGE Matthews S COST SPECIALIST Ot 202.80 10/27/2014 MCLAINPAIGE Matthews S COST SPECIALIST Ot 244.9 10/27/2014 MCLAINPAIGE S COST SPECIALIST Ot 250.00 10/27/2014 MCLAINPAIGE S COST SPECIALIST Ot 272.4 10/27/2014 MCLAIN HILAH S COST SPECIALIST Ot 356.9 10/27/2014 MCLAINCYNTHIAAH S COST SPECIALIST Ot 403.90 10/27/2014 MCLAINPAIGE S COST SPECIALIST Ot 414.00 10/27/2014 MCLAINPAIGE S COST SPECIALIST Ot 585.3 10/27/2014 MCLAINPAIGE S COST SPECIALIST Ot 780.57 10/27/2014 MCLAINPAIGE S COST SPECIALIST Ot V45.82 10/27/2014 MCLAINPAIGE S COST SPECIALIST Ot V58.67 10/27/2014 MCLAINPAIGE S COST SPECIALIST Ot V58.69 10/27/2014 TRAVON AN COST SPECIALIST Ot 250.01 10/27/2014 TRAVON AN COST SPECIALIST Ot 272.4 10/27/2014 TRAVON AN COST SPECIALIST Ot 401.9 10/27/2014 YUMIKO MASSEY, SEBASTIAN A Ot 250.01 10/27/2014 YUMIKO MASSEY, SEBASTIAN A Ot V58.69 10/27/2014 YUMIKO MASSEY, SEBASTIAN A Ot V58.83 10/27/2014 YUMIKO MASSEY, SEBASTIAN A Ot 285.9 10/27/2014 YUMIKO MASSEY, SEBASTIAN A Ot 786.2 10/27/2014 YUMIKO MASSEY, SEBASTIAN A Ot 786.2 10/27/2014 TRAVON AN COST SPECIALIST Ot 285.9 10/27/2014 TRAVON AN COST SPECIALIST Ot 288.60 10/27/2014 YUMIKO MASSEY, SEBASTIAN A Ot 285.9 10/27/2014 YUMIKO MASSEY, SEBASTIAN A Ot 490 10/27/2014 YUMIKO MASSEY, SEBASTIAN A Ot 780.79 10/27/2014 ABRAHAM MARC DO Ot V72.84 10/27/2014 TIESHA LOVE Ot 250.92 10/27/2014 TIESHA LOVE Ot 272.4 10/27/2014 TIESHA LOVE Ot 401.9 10/27/2014 TIESHA LOVE Ot 414.01 10/27/2014 MCLAINPAIGE Matthews S COST SPECIALIST Ot 202.88 10/27/2014 MCLAINPAIGE S COST SPECIALIST Ot 244.9 10/27/2014 MCLAINPAIGE S COST SPECIALIST Ot 250.00 10/27/2014 MCLAINCYNTHIAAH S COST SPECIALIST Ot 414.00 10/27/2014 MCLAINCYNTHIAAH S COST SPECIALIST Ot 585.3 10/27/2014 MCLAINPAIGE S COST SPECIALIST Ot V58.67 10/27/2014 MCLAINCYNTHIAAH S COST SPECIALIST Ot V58.69 10/27/2014 MCLAINPAIGE S COST SPECIALIST Ot 202.80 10/27/2014 VIKTOR MASSEY, TEDDY Andres Ot 272.4 10/27/2014 VIKTOR MASSEY, TEDDY Andres Ot 401.9 10/27/2014 VIKTOR MASSEY, TEDDY Andres Ot 414.00 10/27/2014 VIKTOR MASSEY, TEDDY Andres Ot 780.2 10/27/2014 VIKTOR MASSEY, TEDDY Andres Ot 401.9 10/27/2014 VIKTOR MASSEY, TEDDY Andres Ot 414.00 10/27/2014 VIKTOR MASSEY, TEDDY Andres Ot 780.2 10/27/2014 MCLAINPAIGE Matthews S COST SPECIALIST Ot 202.80 10/27/2014 Ot 202.88 10/27/2014 Ot [...] CORY RIVERA MD Ot 593.9 10/27/2014 NATALIYATRAVON COST SPECIALIST Ot 721.0 10/27/2014 NATALIYATRAVON COST SPECIALIST Ot 721.3 10/27/2014 NATALIYATRAVON COST SPECIALIST Ot E000.8 10/27/2014 NATALIYATRAVON COST SPECIALIST Ot E819.9 10/27/2014 NATALIYATRAVON COST SPECIALIST Ot 250.00 10/27/2014 NATALIYATRAVON COST SPECIALIST Ot 787.01 10/27/2014 Ot 202.80 10/27/2014 Ot 250.00 10/27/2014 Ot 401.9 10/27/2014 Ot 780.79 10/27/2014 Ot 784.0 10/27/2014 Ot 787.02 10/27/2014 Ot V45.82 10/27/2014 Ot V57.89 10/27/2014 NATALIYA TRAVON Caputo COST SPECIALIST Ot 250.00 10/27/2014 NATALIYA TRAVON Caputo COST SPECIALIST Ot 458.9 10/27/2014 NATALIYA TRAVON Caputo COST SPECIALIST Ot 585.4 10/27/2014 NATALIYA TRAVON Caputo COST SPECIALIST Ot 780.4 10/27/2014 MARCIAL LU, DAVID M [...] M Ot 786.2 10/27/2014 NATALIYA TRAVON Caputo COST SPECIALIST Ot 401.9 10/27/2014 NATALIYA TRAVON Caputo COST SPECIALIST Ot 250.01 10/27/2014 NATALIYA TRAVON Caputo COST SPECIALIST Ot 401.9 10/27/2014 NATALIYATRAVON COST SPECIALIST Ot V58.69 10/27/2014 NATALIYATRAVON COST SPECIALIST Ot V72.62 10/27/2014 OTHER, UNLISTED Ot 250.00 10/27/2014 OTHER, UNLISTED Ot 401.9 10/27/2014 OTHER, UNLISTED Ot 491.21 10/27/2014 OTHER, UNLISTED Ot 593.9 10/27/2014 YOBANI MASSEY, GEOVANNA Leonid Ot 250.80 10/27/2014 YOBANI MASSEY, GEOVANNA Jaquez Ot 707.14 10/27/2014 YOBANI MASSEY, GEOVANNA Leonid Ot 443.9 10/27/2014 YOBANI MASSEY, GEOVANNA Jaquez Ot 707.15 10/27/2014 ROSS QUIÑONES CONSTRUCTION EQUIPMENT OPERATOR-C Ot 403.10 10/27/2014 ROSS QUIÑONES CONSTRUCTION EQUIPMENT OPERATOR-C Ot 584.9 10/27/2014 [place] [place] CONSTRUCTION EQUIPMENT OPERATOR-C Ot 585.4 10/27/2014 ROSS QUIÑONES CONSTRUCTION EQUIPMENT OPERATOR-C Ot 782.3 10/27/2014 JAYNA, BOBAN N Ot [...] DORANTES N Ot V58.69 10/31/2014 ROSS QUIÑONES CONSTRUCTION EQUIPMENT OPERATOR-C Ot 403.10 10/31/[address] [place] CONSTRUCTION EQUIPMENT OPERATOR-C Ot 584.9 10/31/2014 ROSS QUIÑONES CONSTRUCTION EQUIPMENT OPERATOR-C Ot 585.4 10/31/2014 ROSS QUIÑONES CONSTRUCTION EQUIPMENT OPERATOR-C Ot 782.3 10/31/2014 YUMIKO MASSEY, SEBASTIAN Arvizu Ot 244.9 10/31/2014 YUMIKO MASSEY, SEBASTIAN A Ot 250.02 10/31/2014 YUMIKO MASSEY, SEBASTIAN A Ot 401.9 11/01/2014 YUMIKO MASESY, SEBASTIAN A Ot 458.9 11/01/2014 YUIMKO MASSEY, SEBASTIAN Arvizu Ot 586 11/01/2014 Ot [...] LEDESMA MD Ot 433.10 11/01/2014 PAIGE MCLAIN COST SPECIALIST Ot 202.80 11/01/2014 PAIGE MCLAIN COST SPECIALIST Ot 244.9 11/01/2014 PAIGE MCLAIN COST SPECIALIST Ot 585.3 11/01/2014 PAIGE MCLAIN COST SPECIALIST Ot 780.4 11/01/2014 PAIGE MCLAIN COST SPECIALIST Ot 783.21 11/01/2014 PAIGE MCLAIN COST SPECIALIST Ot V15.3 11/01/2014 PAIGE MCLAIN COST SPECIALIST Ot V87.41 11/01/2014 PAIGE MCLAIN COST SPECIALIST Ot 202.80 11/01/2014 SEBASTIAN ZELAYA MD Ot 272.4 11/01/2014 YUMIKO MASSEY, SEBASTIAN A Ot 401.9 11/01/2014 YUMIKO MASSEY, SEBASTIAN A Ot V58.69 11/01/2014 NATALIYATRAVON COST SPECIALIST Ot 719.45 11/01/2014 ANTRAVON COST SPECIALIST Ot 786.50 11/01/2014 NATALIYATRAVON COST SPECIALIST Ot E000.8 11/01/2014 NATALIYATRAVON COST SPECIALIST Ot E849.6 11/01/2014 ANTRAVON COST SPECIALIST Ot E888.9 11/01/2014 MCLAINPAIGE Matthews S COST SPECIALIST Ot 202.80 11/01/2014 MCLAINPAIGE Matthews S COST SPECIALIST Ot 244.9 11/01/2014 MCLAIN, HILAH S COST SPECIALIST Ot 250.00 11/01/2014 MCLAINPAIGE Matthews S COST SPECIALIST Ot 272.4 11/01/2014 MCLAINPAIGE Matthews S COST SPECIALIST Ot 356.9 11/01/2014 MCLAINPAIGE Matthews S COST SPECIALIST Ot 403.90 11/01/2014 MCLAINPAIGE Matthews S COST SPECIALIST Ot 414.00 11/01/2014 MCLAINPAIGE Matthews S COST SPECIALIST Ot 585.3 11/01/2014 MCLAINPAIGE Matthews S COST SPECIALIST Ot 780.57 11/01/2014 MCLAINPAIGE Matthews S COST SPECIALIST Ot V15.3 11/01/2014 MCLAINPAIGE Matthews S COST SPECIALIST Ot V45.82 11/01/2014 MCLAINPAIGE S COST SPECIALIST Ot V58.67 11/01/2014 MCLAINPAIGE S COST SPECIALIST Ot V58.69 11/01/2014 MCLAINPAIGE Matthews S COST SPECIALIST Ot V87.41 11/01/2014 MCLAINPAIGE Matthews S COST SPECIALIST Ot 202.80 11/01/2014 SHIRA DORANTES Ot 202.80 11/01/2014 NATALIYA TRAVON Caputo COST SPECIALIST Ot 401.9 11/01/2014 NATALIYA TRAVON Caputo COST SPECIALIST Ot 518.0 11/01/2014 NICOLE MASSEY, CORY A Ot 591 11/01/2014 NICOLE MASSEY, CORY A Ot 599.70 11/01/2014 NICOLE MASSEY, CORY A Ot 600.00 11/01/2014 NICOLE MASSEY, CORY A Ot 257.2 11/01/2014 NICOLE MASSEY, CORY A Ot 599.70 11/01/2014 NICOLE MASSEY, CORY A Ot 600.00 11/01/2014 TRAVON AN COST SPECIALIST Ot 250.01 11/01/2014 MCLAINPAIGE Matthews S COST SPECIALIST Ot 202.80 11/01/2014 MCLAIN HILAH S COST SPECIALIST Ot 202.88 11/01/2014 MCLAIN HILAH S COST SPECIALIST Ot 244.9 11/01/2014 MCLAIN HILAH S COST SPECIALIST Ot 250.00 11/01/2014 MCLAIN HILAH S COST SPECIALIST Ot 414.00 11/01/2014 MCLAIN, HILAH S COST SPECIALIST Ot 585.3 11/01/2014 MCLAIN, HILAH S COST SPECIALIST Ot V45.82 11/01/2014 MCLAIN HILAH S COST SPECIALIST Ot V58.67 11/01/2014 MCLAIN PAIGE S COST SPECIALIST Ot V58.69 11/01/2014 YUMIKO MASSEY, SEBASTIAN A Ot V58.69 11/01/2014 YUMIKO MASSEY, SEBASTIAN A Ot V58.83 11/01/2014 MCLAIN PAIGE S COST SPECIALIST Ot 202.80 11/01/2014 MCLAIN PAIGE S COST SPECIALIST Ot 244.9 11/01/2014 MCLAIN HILAH S COST SPECIALIST Ot 250.00 11/01/2014 MCLAIN HILAH S COST SPECIALIST Ot 272.4 11/01/2014 MCLAIN PAIGE S COST SPECIALIST Ot 356.9 11/01/2014 MCLAIN PAIGE S COST SPECIALIST Ot 403.90 11/01/2014 MCLAIN HILAH S COST SPECIALIST Ot 414.00 11/01/2014 MCLAIN HILAH S COST SPECIALIST Ot 585.3 11/01/2014 MCLAIN HILAH S COST SPECIALIST Ot 780.57 11/01/2014 MCLAIN HILAH S COST SPECIALIST Ot V45.82 11/01/2014 MCLAIN, HILAH S COST SPECIALIST Ot V58.67 11/01/2014 MCLAIN, HILAH S COST SPECIALIST Ot V58.69 11/01/2014 TRAVON AN COST SPECIALIST Ot 250.01 11/01/2014 TRAVON AN COST SPECIALIST Ot 272.4 11/01/2014 TRAVON AN COST SPECIALIST Ot 401.9 11/01/2014 YUMIKO MASSEY, SEBASTIAN A Ot 250.01 11/01/2014 YUMIKO MASSEY, SEBASTIAN A Ot V58.69 11/01/2014 YUMIKO MASSEY, SEBASTIAN A Ot V58.83 11/01/2014 YUMIKO MASSEY, SEBASTIAN A Ot 285.9 11/01/2014 YUMIKO MASSEY, SEBASTIAN A Ot 786.2 11/01/2014 YUMIKO MASSEY, SEBASTIAN A Ot 786.2 11/01/2014 NATALIYA TRAVON M COST SPECIALIST Ot 285.9 11/01/2014 NATALIYA TRAVON Caputo COST SPECIALIST Ot 288.60 11/01/2014 YUMIKO MASSEY, SEBASTIAN A Ot 285.9 11/01/2014 YUMIKO MASSEY, SEBASTIAN A Ot 490 11/01/2014 YUMIKO MASSEY, SEBASTIAN A Ot 780.79 11/01/2014 ABRAHAM MARC DO Ot V72.84 11/01/2014 TIESHA LOVE K Ot 250.92 11/01/2014 TIESHA LOVE K Ot 272.4 11/01/2014 JIM LOVETH K Ot 401.9 11/01/2014 JIM LOVETH K Ot 414.01 11/01/2014 PAIGE MCLAIN COST SPECIALIST Ot 202.88 11/01/2014 PAIGE MCLAIN COST SPECIALIST Ot 244.9 11/01/2014 PAIGE MCLAIN COST SPECIALIST Ot 250.00 11/01/2014 PAIGE MCLAIN COST SPECIALIST Ot 414.00 11/01/2014 PAIGE MCLAIN COST SPECIALIST Ot 585.3 11/01/2014 PAIGE MCLAIN COST SPECIALIST Ot V58.67 11/01/2014 PAIGE MCLAIN COST SPECIALIST Ot V58.69 11/01/2014 PAIGE MCLAIN COST SPECIALIST Ot 202.80 11/01/2014 VIKTOR MASSEY, TEDDY Andres Ot 272.4 11/01/2014 VIKTOR MASSEY, TEDDY Andres Ot 401.9 11/01/2014 VIKTOR MASSEY, TEDDY Andres Ot 414.00 11/01/2014 VIKTOR MASSEY, TEDDY Andres Ot 780.2 11/01/2014 VIKTOR MASSEY, TEDDY Andres Ot 401.9 11/01/2014 VIKTOR MASSEY, TEDDY Andres Ot 414.00 11/01/2014 VIKTOR MASSEY, TEDDY Andres Ot 780.2 11/01/2014 PAIGE MCLAIN COST SPECIALIST Ot 202.80 11/01/2014 Ot 202.88 11/01/2014 Ot [...] CORY Arvizu Ot 593.9 11/01/2014 TRAVON AN COST SPECIALIST Ot 721.0 11/01/2014 TRAVON AN COST SPECIALIST Ot 721.3 11/01/2014 TRAVON AN COST SPECIALIST Ot E000.8 11/01/2014 TRAVON AN COST SPECIALIST Ot E819.9 11/01/2014 TRAVON AN COST SPECIALIST Ot 250.00 11/01/2014 TRAVON AN COST SPECIALIST Ot 787.01 11/01/2014 Ot 202.80 11/01/2014 Ot 250.00 11/01/2014 Ot 401.9 11/01/2014 Ot 780.79 11/01/2014 Ot 784.0 11/01/2014 Ot 787.02 11/01/2014 Ot V45.82 11/01/2014 Ot V57.89 11/01/2014 TRAVON AN COST SPECIALIST Ot 250.00 11/01/2014 TRAVON AN COST SPECIALIST Ot 458.9 11/01/2014 EMORY ANIE M COST SPECIALIST Ot 585.4 11/01/2014 TRAVON AN COST SPECIALIST Ot 780.4 11/01/2014 MARCIAL DO, DAVID M [...] , DAVID M Ot 786.2 11/01/2014 NATALIYATRAVON COST SPECIALIST Ot 401.9 11/01/2014 NATALIYATRAVON COST SPECIALIST Ot 250.01 11/01/2014 NATALIYATRAVON COST SPECIALIST Ot 401.9 11/01/2014 NATALIYATRAVON COST SPECIALIST Ot V58.69 11/01/2014 NATALIYATRAVON COST SPECIALIST Ot V72.62 11/01/2014 OTHER, UNLISTED Ot 250.00 11/01/2014 OTHER, UNLISTED Ot 401.9 11/01/2014 OTHER, UNLISTED Ot 491.21 11/01/2014 OTHER, UNLISTED Ot 593.9 11/01/2014 YOBANI MASSEY, GEOVANNA Jaquez Ot 250.80 11/01/2014 YOBANI MASSEY, GEOVANNA Jaquez Ot 707.14 11/01/2014 YOBANI MASSEY, GEOVANNA Jaquez Ot 443.9 11/01/2014 YOBANI MASSEY, GEOVANNA Jaquez Ot 707.15 11/01/2014 ROSS QUIÑONES CONSTRUCTION EQUIPMENT OPERATOR-C Ot 403.10 11/01/[address] [place] [place] CONSTRUCTION EQUIPMENT OPERATOR-C Ot 584.9 11/01/2014 ROSS QUIÑONES CONSTRUCTION EQUIPMENT OPERATOR-C Ot 585.4 11/01/2014 ROSS QUIÑONES CONSTRUCTION EQUIPMENT OPERATOR-C Ot 782.3 11/01/2014 YUMIKO MASSEY, SEBASTIAN Arvizu Ot 244.9 11/01/2014 YUMIKO MASSEY, SEBASTIAN Arvizu Ot 250.02 11/01/2014 SEBASTIAN ZELAYA MD Ot 401.9 11/01/2014 JAYNA, BOBAN N [...] SEBASTIAN Arvizu Ot 586 11/01/2014 ROSS QUIÑONES CONSTRUCTION EQUIPMENT OPERATOR-C Ot 403.10 11/01/2014 ROSS QUIÑONES CONSTRUCTION EQUIPMENT OPERATOR-C Ot 584.9 11/01/2014 ROSS QUIÑONES CONSTRUCTION EQUIPMENT OPERATOR-C Ot 585.4 11/01/2014 ROSS QUIÑONES CONSTRUCTION EQUIPMENT OPERATOR-C Ot 782.3 11/07/2014 YOBANI MASSEY, GEOVANNA Jaquez [...] V58.69 OTH MED,LT,CURRENT USE 11/24/2014 TRAVON AN COST SPECIALIST Ot E03.9 11/24/2014 TRAVON AN COST SPECIALIST Ot E11.65 11/24/2014 TRAVON AN COST SPECIALIST Ot N18.4 11/29/2014 ABRAHAM MARC DO Ot E11.9 TYPE 2 DIABETES MELLITUS WITHOUT COMPLIC 11/29/2014 ABRAHAM MARC DO Ot R93.3 ABNORMAL FINDINGS ON DX IMAGING OF PRT D 11/30/2014 PAIGE MCLAIN COST SPECIALIST Ot 202.80 11/30/2014 PAIGE MCLAIN COST SPECIALIST Ot 244.9 11/30/2014 PAIGE MCLAIN COST SPECIALIST Ot 250.40 11/30/2014 PAIGE MCLAIN COST SPECIALIST Ot 250.60 11/30/2014 MCLAINPAIGE Matthews S COST SPECIALIST Ot 285.21 11/30/2014 MCLAINPAIGE Matthews S COST SPECIALIST Ot 357.2 11/30/2014 MCLAINPAIGE Matthews S COST SPECIALIST Ot 583.81 11/30/2014 PAIGE MCLAIN S COST SPECIALIST Ot 585.4 11/30/2014 MCLAINPAIGE Matthews S COST SPECIALIST Ot 780.4 11/30/2014 MCLAIN, HIL S COST SPECIALIST Ot 784.0 11/30/2014 MCLAIN, HIL S COST SPECIALIST Ot 785.6 11/30/2014 MCLAINPAIGE Matthews S COST SPECIALIST Ot V15.3 11/30/2014 MCLAINPAIGE Matthews S COST SPECIALIST Ot V58.67 11/30/2014 MCLAINPAIGE S COST SPECIALIST Ot V58.69 11/30/2014 MCLAINPAIGE Matthews S COST SPECIALIST Ot 202.80 11/30/2014 MCLAINPAIGE Matthews S COST SPECIALIST Ot 780.4 11/30/2014 MCLAIN, HIL S COST SPECIALIST Ot 784.0 11/30/2014 MCLAIN, HIL S COST SPECIALIST Ot 785.6 12/08/2014 MCLAIN, HIL S COST SPECIALIST Ot 202.80 12/08/2014 MCLAIN, HIL S COST SPECIALIST Ot 244.9 12/08/2014 MCLAINPAIGE Matthews S COST SPECIALIST Ot 250.40 12/08/2014 MCALINPAIGE Matthews S COST SPECIALIST Ot 250.60 12/08/2014 MCLAINPAIGE Matthews S COST SPECIALIST Ot 285.21 12/08/2014 MCLAINPAIGE Matthews S COST SPECIALIST Ot 357.2 12/08/2014 MCLAINPAIGE Matthews S COST SPECIALIST Ot 583.81 12/08/2014 MCLAINPAIGE Matthews S COST SPECIALIST Ot 585.4 12/08/2014 MCLAIN, [facility] S COST SPECIALIST Ot 780.4 12/08/2014 MCLAIN, HIL S COST SPECIALIST Ot 784.0 12/08/2014 MCLAINCYNTHIA S COST SPECIALIST Ot 785.6 12/08/2014 MCLAINPAIGE S COST SPECIALIST Ot V15.3 12/08/2014 CHEMOCYNTHIA S COST SPECIALIST Ot V58.67 12/08/2014 CHEMO CYNTHIA S COST SPECIALIST Ot V58.69 12/12/2014 PAIGE MCLAIN COST SPECIALIST Ot 202.80 12/12/2014 PAIGE MCLAIN COST SPECIALIST Ot 780.4 12/12/2014 PAIGE MCLAIN COST SPECIALIST Ot 784.0 12/12/2014 PAIGE MCLAIN COST SPECIALIST Ot 785.6 12/12/2014 CELESTINE MASSEY, MARKY M Ot N18.3 12/12/2014 TRAVON AN Harshal COST SPECIALIST Ot E03.9 12/12/2014 TRAVON AN COST SPECIALIST Ot E11.65 12/12/2014 NATALIYA TRAVON Caputo COST SPECIALIST Ot N18.4 12/14/2014 CELESTINE MASSEY, MARKY M [...] N Ot I25.10 ATHSCL HEART DISEASE OF [place] CORONARY 12/23/2014 SHIRA DORANTES N Ot N18.4 CHRONIC KIDNEY DISEASE, STAGE 4 (SEVERE) 12/23/2014 SHIRA DORANTES N Ot V45.82 12/23/2014 SHIRA DORANTES N Ot V58.67 12/23/2014 SHIRA DORANTES N Ot V58.69 12/23/2014 SHIRA DORANTES N Ot 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 12/23/2014 SHIRA DORANTES N Ot Z79.899 OTHER GROUP HOME (CURRENT) DRUG THERAPY 12/23/2014 SHIRA DORANTES N Ot Z98.61 CORONARY ANGIOPLASTY STATUS 12/23/2014 Ot 202.88 12/23/2014 Ot 244.9 12/23/2014 Ot 250.00 12/23/2014 Ot 414.00 12/23/2014 Ot 784.0 12/23/2014 Ot V45.82 12/23/2014 Ot V58.67 12/23/2014 Ot V58.69 12/23/2014 JAYNA SHIRA N Ot 202.80 12/23/2014 CORY RIVERA MD Ot 593.9 12/23/2014 TRAVON AN COST SPECIALIST Ot 721.0 12/23/2014 ANTRAVON COST SPECIALIST Ot 721.3 12/23/2014 ANTRAVON COST SPECIALIST Ot E000.8 12/23/2014 ANTRAVON COST SPECIALIST Ot E819.9 12/23/2014 NATALIYATRAVON COST SPECIALIST Ot 250.00 12/23/2014 NATALIYATRAVON COST SPECIALIST Ot 787.01 12/23/2014 Ot 202.80 12/23/2014 Ot 250.00 12/23/2014 Ot 401.9 12/23/2014 Ot 780.79 12/23/2014 Ot 784.0 12/23/2014 Ot 787.02 12/23/2014 Ot V45.82 12/23/2014 Ot V57.89 12/23/2014 NATALIYA TRAVON SIMENTALP Ot 250.00 12/23/2014 NATALIYA TRAVON Caputo COST SPECIALIST Ot 458.9 12/23/2014 NATALIYATRAVON COST SPECIALIST Ot 585.4 12/23/2014 NATALIYATRAVON COST SPECIALIST Ot 780.4 12/23/2014 MITCH CEJA DOSON M Ot 327.23 12/23/2014 MARCIAL DO, DAVID M Ot 486 12/23/2014 MARCIAL DO, DAVID M Ot 327.23 12/23/2014 MARCIAL DO, DAVID M Ot 486 12/23/2014 MARCIAL DO, DAVID M Ot 786.09 12/23/2014 MARCIAL DOMITCHDAVID M Ot 327.23 12/23/2014 MARCIAL DO, DAVID M Ot 486 12/23/2014 MARCIAL DO, DAVID M Ot 786.09 12/23/2014 MARCIAL DOMITCHDAVID M Ot 786.2 12/23/2014 NATALIYATRAVON COST SPECIALIST Ot 401.9 12/23/2014 NATALIYATRAVON COST SPECIALIST Ot 250.01 12/23/2014 NATALIYA TRAVON Caputo COST SPECIALIST Ot 401.9 12/23/2014 NATALIYA TRAVON Caputo COST SPECIALIST Ot V58.69 12/23/2014 NATALIYA TRAVON Caputo COST SPECIALIST Ot V72.62 12/23/2014 OTHER, UNLISTED Ot 250.00 12/23/2014 OTHER, UNLISTED Ot 401.9 12/23/2014 OTHER, UNLISTED Ot 491.21 12/23/2014 OTHER, UNLISTED Ot 593.9 12/23/2014 YOBANI MASSEY, GEOVANNA Jaquez Ot 443.9 12/23/2014 YOBANI MASSEY, GEOVANNA Jaquez Ot 707.15 12/23/2014 NURIAROSS CONSTRUCTION EQUIPMENT OPERATOR-C Ot 403.10 12/23/2014 NURIA, ROSS Caputo CONSTRUCTION EQUIPMENT OPERATOR-C Ot 584.9 12/23/2014 NURIA, ROSS Caputo CONSTRUCTION EQUIPMENT OPERATOR-C Ot 585.4 12/23/2014 NURIA, ROSS Caputo CONSTRUCTION EQUIPMENT OPERATOR-C Ot 782.3 12/23/2014 YUMIKO MASSYE, SEBASTIAN A Ot 244.9 12/23/2014 YUMIKO MASSEY, SEBASTIAN A Ot 250.02 12/23/2014 YUMIKO MASSEY, SEBASTIAN A Ot 401.9 12/23/2014 YUMIKO MASSEY, SEBASTIAN A Ot 458.9 12/23/2014 YUMIKO MASSEY, SEBASTIAN A Ot 586 12/23/2014 PAIGE MCLAIN S COST SPECIALIST Ot 202.80 12/23/2014 PAIGE MCLAIN S COST SPECIALIST Ot 244.9 12/23/2014 CYNTHIA MCLAIN S COST SPECIALIST Ot 250.40 12/23/2014 CYNTHIA MCLAIN S COST SPECIALIST Ot 250.60 12/23/2014 PAIGE MCLAIN S COST SPECIALIST Ot 285.21 12/23/2014 CYNTHIA MCLAINBRODIE S COST SPECIALIST Ot 357.2 12/23/2014 CYNTHIA MCLAINAH S COST SPECIALIST Ot 583.81 12/23/2014 CYNTHIA MCLAINAH S COST SPECIALIST Ot 585.4 12/23/2014 CHEMO CYNTHIAAH S COST SPECIALIST Ot 780.4 12/23/2014 CHEMO CYNTHIAAH S COST SPECIALIST Ot 784.0 12/23/2014 CYNTHIA MCLAINAH S COST SPECIALIST Ot 785.6 12/23/2014 CYNTHIA MCLAINAH S COST SPECIALIST Ot V15.3 12/23/2014 CYNTHIA MCLAINAH S COST SPECIALIST Ot V58.67 12/23/2014 PAIGE MCLAIN S COST SPECIALIST Ot V58.69 12/23/2014 CELESTINE MASSEY, MARKY Caputo Ot 585.3 12/23/2014 PAIGE MCLAIN S COST SPECIALIST Ot 202.80 12/23/2014 PAIGE MCLAIN COST SPECIALIST Ot 780.4 12/23/2014 PAIGE MCLAIN COST SPECIALIST Ot 784.0 12/23/2014 PAIGE MCLAIN COST SPECIALIST Ot 785.6 12/23/2014 FLORES MATTHEWS MEDICAL CHEMIST Ot K59.00 12/23/2014 FLORES MATTHEWS MEDICAL CHEMIST Ot R11.0 12/23/2014 FLORES MATTHEWS MEDICAL CHEMIST Ot R19.12 12/23/2014 [facility] 12/23/[facility] Ot Z01.818 12/23/2014 TRAVON AN COST SPECIALIST Ot E03.9 12/23/2014 TRAVON AN COST SPECIALIST Ot E11.65 12/23/2014 TRAVON AN COST SPECIALIST Ot N18.4 12/23/2014 CELESTINE MASSEY, MARKY Caputo [...] LIZETTE Caputo Ot 433.10 01/04/2015 PAIGE MCLAIN COST SPECIALIST Ot 202.80 01/04/2015 PAIGE MCLAIN COST SPECIALIST Ot 244.9 01/04/2015 PAIGE MCLAIN COST SPECIALIST Ot 585.3 01/04/2015 PAIGE MCLAIN COST SPECIALIST Ot 780.4 01/04/2015 PAIGE MCLAIN COST SPECIALIST Ot 783.21 01/04/2015 PAIGE MCLAIN COST SPECIALIST Ot V15.3 01/04/2015 PAIGE MCLAIN COST SPECIALIST Ot V87.41 01/04/2015 PAIGE MCLAIN COST SPECIALIST Ot 202.80 01/04/2015 YUMIKO MASSEY, SEBASTIAN Arvizu Ot 272.4 01/04/2015 YUMIKO MASSEY, SEBASTIAN A Ot 401.9 01/04/2015 YUMIKO MASSEY, SEBASTIAN A Ot V58.69 01/04/2015 TRAVON AN COST SPECIALIST Ot 719.45 01/04/2015 TRAVON AN COST SPECIALIST Ot 786.50 01/04/2015 TRAVON AN COST SPECIALIST Ot E000.8 01/04/2015 TRAVON AN COST SPECIALIST Ot E849.6 01/04/2015 TRAVON AN COST SPECIALIST Ot E888.9 01/04/2015 MCLAINPAIGE Matthews S COST SPECIALIST Ot 202.80 01/04/2015 MCLAINPAIGE Matthews S COST SPECIALIST Ot 244.9 01/04/2015 PAIGE MCLAIN S COST SPECIALIST Ot 250.00 01/04/2015 MCLAINPAIGE Matthews S COST SPECIALIST Ot 272.4 01/04/2015 MCLAINPAIGE Matthews S COST SPECIALIST Ot 356.9 01/04/2015 PAIGE MCLAIN S COST SPECIALIST Ot 403.90 01/04/2015 CYNTHIA MCLAINAH S COST SPECIALIST Ot 414.00 01/04/2015 MCLAINPAIGE Matthews S COST SPECIALIST Ot 585.3 01/04/2015 MCLAIN, HILAH S COST SPECIALIST Ot 780.57 01/04/2015 PAIGE MCLAIN S COST SPECIALIST Ot V15.3 01/04/2015 MCLAINPAIGE Matthews S COST SPECIALIST Ot V45.82 01/04/2015 MCLAINPAIGE Matthews S COST SPECIALIST Ot V58.67 01/04/2015 MCLAINPAIGE Matthews S COST SPECIALIST Ot V58.69 01/04/2015 MCLAINPAIGE Matthews S COST SPECIALIST Ot V87.41 01/04/2015 MCLAINPAIGE Matthews S COST SPECIALIST Ot 202.80 01/04/2015 SHIRA DORANTES Ot 202.80 01/04/2015 TRAVON AN COST SPECIALIST Ot 401.9 01/04/2015 TRAVON AN COST SPECIALIST Ot 518.0 01/04/2015 NICOLE MASSEY, CORY A Ot 591 01/04/2015 NICOLE MASSEY, CORY A Ot 599.70 01/04/2015 NICOLE MASSEY, CORY A Ot 600.00 01/04/2015 NICOLE MASSEY, CORY A Ot 257.2 01/04/2015 NICOLE MASSEY, CORY A Ot 599.70 01/04/2015 NICOLE MASSEY, CORY A Ot 600.00 01/04/2015 TRAVON AN COST SPECIALIST Ot 250.01 01/04/2015 CHEMO PAIGE S COST SPECIALIST Ot 202.80 01/04/2015 CHEMO PAIGE S COST SPECIALIST Ot 202.88 01/04/2015 MCLAINPAIGE Matthews S COST SPECIALIST Ot 244.9 01/04/2015 PAIGE MCLAIN S COST SPECIALIST Ot 250.00 01/04/2015 PAIGE MCLAIN S COST SPECIALIST Ot 414.00 01/04/2015 PAIGE MCLAIN S COST SPECIALIST Ot 585.3 01/04/2015 PAIGE MCLAIN S COST SPECIALIST Ot V45.82 01/04/2015 MCLAINPAIGE Matthews S COST SPECIALIST Ot V58.67 01/04/2015 MCLAINPAIGE S COST SPECIALIST Ot V58.69 01/04/2015 YUMIKO MASSEY, SEBASTIAN A Ot V58.69 01/04/2015 YUMIKO MASSEY, SEBASTIAN A Ot V58.83 01/04/2015 MCLAINPAIGE Matthews S COST SPECIALIST Ot 202.80 01/04/2015 PAIGE MCLAIN S COST SPECIALIST Ot 244.9 01/04/2015 PAIGE MCLAIN S COST SPECIALIST Ot 250.00 01/04/2015 MCLAINPAIGE Matthews S COST SPECIALIST Ot 272.4 01/04/2015 MCLAINPAIGE Matthews S COST SPECIALIST Ot 356.9 01/04/2015 MCLAINPAIGE Matthews S COST SPECIALIST Ot 403.90 01/04/2015 PAIGE MCLAIN S COST SPECIALIST Ot 414.00 01/04/2015 PAIGE MCLAIN S COST SPECIALIST Ot 585.3 01/04/2015 PAIGE MCLAIN S COST SPECIALIST Ot 780.57 01/04/2015 PAIGE MCLAIN S COST SPECIALIST Ot V45.82 01/04/2015 MCLAINPAIGE Matthews S COST SPECIALIST Ot V58.67 01/04/2015 MCLAINPAIGE Matthews S COST SPECIALIST Ot V58.69 01/04/2015 TRAVON AN COST SPECIALIST Ot 250.01 01/04/2015 TRAVON AN COST SPECIALIST Ot 272.4 01/04/2015 TRAVON AN COST SPECIALIST Ot 401.9 01/04/2015 YUMIKO MASSEY, SEBASTIAN A Ot 250.01 01/04/2015 YUMIKO MASSEY, SEBASTIAN A Ot V58.69 01/04/2015 YUMIKO MASSEY, SEBASTIAN A Ot V58.83 01/04/2015 YUMIKO MASSEY, SEBASTIAN A Ot 285.9 01/04/2015 YUMIKO MASSEY, SEBASTIAN A Ot 786.2 01/04/2015 YUMIKO MASSEY, SEBASTIAN A Ot 786.2 01/04/2015 TRAVON AN COST SPECIALIST Ot 285.9 01/04/2015 TRAVON AN COST SPECIALIST Ot 288.60 01/04/2015 YUMIKO MASSEY, SEBASTIAN Arvizu Ot 285.9 01/04/2015 YUMIKO MASSEY, SEBASTIAN Arvizu Ot 490 01/04/2015 YUMIKO MASSEY, SEBASTIAN Arvizu Ot 780.79 01/04/2015 MARC ABRAHAM LU Ot V72.84 01/04/2015 TIESHA LOVE Ot 250.92 01/04/2015 TIESHA LOVE K Ot 272.4 01/04/2015 TIESHA LOVE K Ot 401.9 01/04/2015 TIESHA LOVE K Ot 414.01 01/04/2015 PAIGE MCLAIN COST SPECIALIST Ot 202.88 01/04/2015 PAIGE MCLAIN COST SPECIALIST Ot 244.9 01/04/2015 PAIGE MCLAIN COST SPECIALIST Ot 250.00 01/04/2015 PAIGE MCLAIN COST SPECIALIST Ot 414.00 01/04/2015 PAIGE MCLAIN COST SPECIALIST Ot 585.3 01/04/2015 PAIGE MCLAIN COST SPECIALIST Ot V58.67 01/04/2015 PAIGE MCLAIN COST SPECIALIST Ot V58.69 01/04/2015 PAIGE MCLAIN COST SPECIALIST Ot 202.80 01/04/2015 VIKTOR MASSEY, TEDDY Andres Ot 272.4 01/04/2015 VIKTOR MASSEY, TEDDY Andres Ot 401.9 01/04/2015 VIKTOR MASSEY, TEDDY Andres Ot 414.00 01/04/2015 VIKTOR MASSEY, TEDDY Andres Ot 780.2 01/04/2015 VIKTOR MASSEY, TEDDY Andres Ot 401.9 01/04/2015 VIKTOR MASSEY, TEDDY Andres Ot 414.00 01/04/2015 VIKTOR MASSEY, TEDDY Andres Ot 780.2 01/04/2015 MCLAINPAIGE Matthews COST SPECIALIST Ot 202.80 01/04/2015 Ot 202.88 01/04/2015 Ot [...] CORY Arvizu Ot 593.9 01/04/2015 TRAVON AN COST SPECIALIST Ot 721.0 01/04/2015 TRAVON AN COST SPECIALIST Ot 721.3 01/04/2015 TRAVON AN COST SPECIALIST Ot E000.8 01/04/2015 TRAVON AN COST SPECIALIST Ot E819.9 01/04/2015 TRAVON AN COST SPECIALIST Ot 250.00 01/04/2015 TRAVON AN COST SPECIALIST Ot 787.01 01/04/2015 Ot 202.80 01/04/2015 Ot 250.00 01/04/2015 Ot 401.9 01/04/2015 Ot 780.79 01/04/2015 Ot 784.0 01/04/2015 Ot 787.02 01/04/2015 Ot V45.82 01/04/2015 Ot V57.89 01/04/2015 TRVAON AN COST SPECIALIST Ot 250.00 01/04/2015 TRAVON AN COST SPECIALIST Ot 458.9 01/04/2015 TRAVON AN COST SPECIALIST Ot 585.4 01/04/2015 TRAVON AN COST SPECIALIST Ot 780.4 01/04/2015 DAVID CEJA DO Ot 327.23 01/04/2015 DAVID CEJA DO Ot 486 01/04/2015 DAVID CEJA DO Ot 327.23 01/04/2015 DAVID CEJA DO Ot 486 01/04/2015 DAVID CEJA DO Ot 786.09 01/04/2015 DAVID CEJA DO Ot 327.23 01/04/2015 DAVID CEJA DO Ot 486 01/04/2015 DAVID CEJA DO Ot 786.09 01/04/2015 DAVID CEJA DO Ot 786.2 01/04/2015 TRAVON AN COST SPECIALIST Ot 401.9 01/04/2015 TRAVON AN COST SPECIALIST Ot 250.01 01/04/2015 ANTRAVON COST SPECIALIST Ot 401.9 01/04/2015 TRAVON AN COST SPECIALIST Ot V58.69 01/04/2015 TRAVON AN COST SPECIALIST Ot V72.62 01/04/2015 OTHER, UNLISTED Ot 250.00 01/04/2015 OTHER, UNLISTED Ot 401.9 01/04/2015 OTHER, UNLISTED Ot 491.21 01/04/2015 OTHER, UNLISTED Ot 593.9 01/04/2015 YOBANI MASSEY, GEOVANNA Jaquez Ot 443.9 01/04/2015 YOBANI MASSEY, GEOVANNA Jaquez Ot 707.15 01/04/2015 ROSS QUIÑONES CONSTRUCTION EQUIPMENT OPERATOR-C Ot 403.10 01/04/2015 ROSS QUIÑONES CONSTRUCTION EQUIPMENT OPERATOR-C Ot 584.9 01/04/2015 ROSS QUIÑONES CONSTRUCTION EQUIPMENT OPERATOR-C Ot 585.4 01/04/2015 ROSS QUIÑONES CONSTRUCTION EQUIPMENT OPERATOR-C Ot 782.3 01/04/2015 YUMIKO MASSEY, SEBASTIAN Arvizu Ot 244.9 01/04/2015 YUMIKO MASSEY, SEBASTIAN Arvizu Ot 250.02 01/04/2015 YUMIKO MASSEY, SEBASTIAN A Ot 401.9 01/04/2015 YUMIKO MASSEY, SEBASTIAN A Ot 458.9 01/04/2015 YUMIKO MASSEY, SEBASTIAN A Ot 586 01/04/2015 PAIGE MCLAIN COST SPECIALIST Ot 202.80 01/04/2015 PAIGE MCLAIN COST SPECIALIST Ot 244.9 01/04/2015 PAIGE MCLAIN COST SPECIALIST Ot 250.40 01/04/2015 PAIGE MCLAIN COST SPECIALIST Ot 250.60 01/04/2015 PAIGE MCLAIN COST SPECIALIST Ot 285.21 01/04/2015 PAIGE MCLAIN COST SPECIALIST Ot 357.2 01/04/2015 PAIGE MCLAIN COST SPECIALIST Ot 583.81 01/04/2015 PAIGE MCLAIN COST SPECIALIST Ot 585.4 01/04/2015 PAIGE MCLAIN S COST SPECIALIST Ot 780.4 01/04/2015 PAIGE MCLAIN S COST SPECIALIST Ot 784.0 01/04/2015 PAIGE MCLAIN S COST SPECIALIST Ot 785.6 01/04/2015 PAIGE MCLAIN S COST SPECIALIST Ot V15.3 01/04/2015 PAIGE MCLAIN S COST SPECIALIST Ot V58.67 01/04/2015 PAIGE MCLAIN S COST SPECIALIST Ot V58.69 01/04/2015 CELESTINE MASSEY, MRAKY M Ot 585.3 01/04/2015 PAIGE MCLAIN COST SPECIALIST Ot 202.80 01/04/2015 PAIGE MCLAIN COST SPECIALIST Ot 780.4 01/04/2015 PAIGE MCLAIN COST SPECIALIST Ot 784.0 01/04/2015 PAIGE MCLAIN COST SPECIALIST Ot 785.6 01/04/2015 FLORES MATTHEWS MEDICAL CHEMIST Ot K59.00 01/04/2015 FLORES MATTHEWS MEDICAL CHEMIST Ot R11.0 01/04/2015 FLORES MATTHEWS MEDICAL CHEMIST Ot R19.12 01/04/2015 ABRAHAM MARC DO Ot R93.5 01/04/2015 ABRAHAM MARC DO Ot Z01.818 01/04/2015 TRAVON AN COST SPECIALIST Ot E03.9 01/04/2015 TRAVON AN COST SPECIALIST Ot E11.65 01/04/2015 TRAVON AN COST SPECIALIST Ot N18.4 01/04/2015 CELESTINE MASSEY, MARKY M Ot N18.3 01/04/2015 CELESTINE MASSEY, MARKY M Ot N18.4 01/04/2015 TRAVON AN COST SPECIALIST Ot 721.0 01/04/2015 TRAVON AN COST SPECIALIST Ot 721.3 01/04/2015 TRAVON AN COST SPECIALIST Ot E000.8 01/04/2015 TRAVON AN COST SPECIALIST Ot E819.9 2015 YUMIKO MASSEY, SEBASTIAN Arvizu Ot 458.9 2015 YUMIKO MASSEY, SEBASTIAN Arvizu Ot 586 2015 FLORES MATTHEWS MEDICAL CHEMIST Ot K59.00 2015 FLORES MATTHEWS MEDICAL CHEMIST Ot R11.0 2015 FLORES MATTHEWS MEDICAL CHEMIST Ot R19.12 01/17/2015 YUMIKO MASSEY, SEBASTIAN Arvizu Ot 458.9 01/17/2015 YUMIKO MASSEY, SEBASTIAN Arvizu Ot 586 01/17/2015 FLORES MATTHEWS MEDICAL CHEMIST Ot K59.00 01/17/2015 FLORES MATTHEWS MEDICAL CHEMIST Ot R11.0 01/17/2015 FLORES MATTHEWS MEDICAL CHEMIST Ot R19.12 01/17/2015 Ot E87.5 01/17/2015 Ot [...] LIZETTE Caputo Ot 433.10 01/19/2015 PAIGE MCLAIN COST SPECIALIST Ot 202.80 01/19/2015 PAIGE MCLAIN COST SPECIALIST Ot 244.9 01/19/2015 PAIGE MCLAIN COST SPECIALIST Ot 585.3 01/19/2015 PAIGE MCLAIN COST SPECIALIST Ot 780.4 01/19/2015 PAIGE MCLAIN COST SPECIALIST Ot 783.21 01/19/2015 PAIGE MCLAIN COST SPECIALIST Ot V15.3 01/19/2015 PAIGE MCLAIN S COST SPECIALIST Ot V87.41 01/19/2015 PAIGE MCLAIN COST SPECIALIST Ot 202.80 01/19/2015 YUMIKO MASSEY, SEBASTIAN Arvizu Ot 272.4 01/19/2015 YUMIKO MASSEY, SEBASTAIN Arvizu Ot 401.9 01/19/2015 SEBASTIAN ZELAYA MD Ot V58.69 01/19/2015 TRAVON AN COST SPECIALIST Ot 719.45 01/19/2015 TRAVON AN COST SPECIALIST Ot 786.50 01/19/2015 TRAVON AN COST SPECIALIST Ot E000.8 01/19/2015 TRAVON AN COST SPECIALIST Ot E849.6 01/19/2015 TRAVON AN COST SPECIALIST Ot E888.9 01/19/2015 MCLAINPAIGE Matthews S COST SPECIALIST Ot 202.80 01/19/2015 MCLAINPAGIE Matthews S COST SPECIALIST Ot 244.9 01/19/2015 MCLAIN, HILAH S COST SPECIALIST Ot 250.00 01/19/2015 MCLAIN, HILAH S COST SPECIALIST Ot 272.4 01/19/2015 MCLAIN HILAH S COST SPECIALIST Ot 356.9 01/19/2015 MCLAIN HILAH S COST SPECIALIST Ot 403.90 01/19/2015 MCLAIN HILAH S COST SPECIALIST Ot 414.00 01/19/2015 MCLAIN HILAH S COST SPECIALIST Ot 585.3 01/19/2015 MCLAIN, HILAH S COST SPECIALIST Ot 780.57 01/19/2015 MCLAINPAIGE Matthews S COST SPECIALIST Ot V15.3 01/19/2015 MCLAINPAIGE Matthews S COST SPECIALIST Ot V45.82 01/19/2015 MCLAINPAIGE S COST SPECIALIST Ot V58.67 01/19/2015 MCLAINPAIGE S COST SPECIALIST Ot V58.69 01/19/2015 MCLAINPAIGE Matthews S COST SPECIALIST Ot V87.41 01/19/2015 MCLAINPAIGE Matthews S COST SPECIALIST Ot 202.80 01/19/2015 SHIRA DORANTES Ot 202.80 01/19/2015 TRAVON AN COST SPECIALIST Ot 401.9 01/19/2015 TRAVON AN COST SPECIALIST Ot 518.0 01/19/2015 NICOLE MASSEY, CORY A Ot 591 01/19/2015 NICOLE MASSEY, CORY A Ot 599.70 01/19/2015 NICOLE MASSEY, CORY A Ot 600.00 01/19/2015 NICOLE MASSEY, CORY A Ot 257.2 01/19/2015 NICOLE MASSEY, CORY A Ot 599.70 01/19/2015 NICOLE MASSEY, CORY A Ot 600.00 01/19/2015 TRAVON AN COST SPECIALIST Ot 250.01 01/19/2015 MCLAIN PAIGE S COST SPECIALIST Ot 202.80 01/19/2015 MCLAIN PAIGE S COST SPECIALIST Ot 202.88 01/19/2015 PAIGE MCLAIN S COST SPECIALIST Ot 244.9 01/19/2015 PAIGE MCLAIN S COST SPECIALIST Ot 250.00 01/19/2015 PAIGE MCLAIN S COST SPECIALIST Ot 414.00 01/19/2015 PAIGE MCLAIN S COST SPECIALIST Ot 585.3 01/19/2015 PAIGE MCLAIN S COST SPECIALIST Ot V45.82 01/19/2015 MCLAINPAIGE S COST SPECIALIST Ot V58.67 01/19/2015 MCLAINPAIGE S COST SPECIALIST Ot V58.69 01/19/2015 YUMIKO MASSEY, SEBASTIAN A Ot V58.69 01/19/2015 SEBASTIAN ZELAYA MD A Ot V58.83 01/19/2015 MCLAINPAIGE Matthews S COST SPECIALIST Ot 202.80 01/19/2015 PAIGE MCLAIN S COST SPECIALIST Ot 244.9 01/19/2015 PAIGE MCLAIN S COST SPECIALIST Ot 250.00 01/19/2015 PAIGE MCLAIN S COST SPECIALIST Ot 272.4 01/19/2015 PAIGE MCLAIN S COST SPECIALIST Ot 356.9 01/19/2015 PAIGE MCLAIN S COST SPECIALIST Ot 403.90 01/19/2015 PAIGE MCLAIN S COST SPECIALIST Ot 414.00 01/19/2015 PAIGE MCLAIN S COST SPECIALIST Ot 585.3 01/19/2015 PAIGE MCLAIN S COST SPECIALIST Ot 780.57 01/19/2015 PAIGE MCLAIN S COST SPECIALIST Ot V45.82 01/19/2015 MCLAINPAIGE Matthews S COST SPECIALIST Ot V58.67 01/19/2015 MCLAINPAIGE Matthews S COST SPECIALIST Ot V58.69 01/19/2015 TRAVON AN COST SPECIALIST Ot 250.01 01/19/2015 TRAVON AN COST SPECIALIST Ot 272.4 01/19/2015 TRAVON AN COST SPECIALIST Ot 401.9 01/19/2015 YUMIKO MASSEY, SEBASTIAN Arvizu Ot 250.01 01/19/2015 SEBASTIAN ZELAYA MD A Ot V58.69 01/19/2015 YUMIKO MASSEY, SEBASTIAN Arvizu Ot V58.83 01/19/2015 YUMIKO MASSEY, SEBASTIAN Arvizu Ot 285.9 01/19/2015 SEBASTIAN ZELAYA MD Ot 786.2 01/19/2015 YUMIKO MASSEY, SEBASTIAN Arvizu Ot 786.2 01/19/2015 TRAVON AN COST SPECIALIST Ot 285.9 01/19/2015 TRAVON AN COST SPECIALIST Ot 288.60 01/19/2015 YUMIKO MASSEY, SEBASTIAN A Ot 285.9 01/19/2015 YUMIKO MASSEY, SEBASTIAN Arvizu Ot 490 01/19/2015 YUMIKO MASSEY, SEBASTIAN Arvizu Ot 780.79 01/19/2015 ABRAHAM MARC DO Ot V72.84 01/19/2015 TIESHA LOVE Ot 250.92 01/19/2015 TIESHA LOVE K Ot 272.4 01/19/2015 TIESHA LOVE K Ot 401.9 01/19/2015 TIESHA LOVE K Ot 414.01 01/19/2015 PAIGE MCLAIN COST SPECIALIST Ot 202.88 01/19/2015 PAIGE MCLAIN COST SPECIALIST Ot 244.9 01/19/2015 PAIGE MCLAIN COST SPECIALIST Ot 250.00 01/19/2015 PAIGE MCLAIN COST SPECIALIST Ot 414.00 01/19/2015 PAIGE MCLAIN COST SPECIALIST Ot 585.3 01/19/2015 PAIGE MCLAIN COST SPECIALIST Ot V58.67 01/19/2015 PAIGE MCLAIN S COST SPECIALIST Ot V58.69 01/19/2015 PAIGE MCLAIN COST SPECIALIST Ot 202.80 01/19/2015 VIKTOR MASSEY, TEDDY Andres Ot 272.4 01/19/2015 VIKTOR MASSEY, TEDDY Andres Ot 401.9 01/19/2015 VIKTOR MASSEY, TEDDY Andres Ot 414.00 01/19/2015 VIKTOR MASSEY, TEDDY Andres Ot 780.2 01/19/2015 VIKTOR MASSEY, TEDDY Andres Ot 401.9 01/19/2015 VIKTOR MASSEY, TEDDY Andres Ot 414.00 01/19/2015 VIKTOR MASSEY, TEDDY Andres Ot 780.2 01/19/2015 MCLAINPAIGE Matthews COST SPECIALIST Ot 202.80 01/19/2015 Ot 202.88 01/19/2015 Ot [...] RIVERA MD Ot 593.9 01/19/2015 TRAVON AN COST SPECIALIST Ot 721.0 01/19/2015 TRAVON AN COST SPECIALIST Ot 721.3 01/19/2015 TRAVON AN COST SPECIALIST Ot E000.8 01/19/2015 TRAVON AN COST SPECIALIST Ot E819.9 01/19/2015 TRAVON AN COST SPECIALIST Ot 250.00 01/19/2015 TRVAON AN COST SPECIALIST Ot 787.01 01/19/2015 Ot 202.80 01/19/2015 Ot 250.00 01/19/2015 Ot 401.9 01/19/2015 Ot 780.79 01/19/2015 Ot 784.0 01/19/2015 Ot 787.02 01/19/2015 Ot V45.82 01/19/2015 Ot V57.89 01/19/2015 TRAVON AN COST SPECIALIST Ot 250.00 01/19/2015 TRAVON AN COST SPECIALIST Ot 458.9 01/19/2015 TRAVON AN COST SPECIALIST Ot 585.4 01/19/2015 TRAVON AN COST SPECIALIST Ot 780.4 01/19/2015 DAVID CEJA DO Ot 327.23 01/19/2015 DAVID CEJA DO Ot 486 01/19/2015 DAVID CEJA DO Ot 327.23 01/19/2015 DAVID CEJA DO Ot 486 01/19/2015 DAVID CEJA DO Ot 786.09 01/19/2015 DAVID CEJA DO Ot 327.23 01/19/2015 DAVID CEJA DO Ot 486 01/19/2015 DAVID CEJA DO Ot 786.09 01/19/2015 DAVID CEJA DO Ot 786.2 01/19/2015 NATALIYATRAVON COST SPECIALIST Ot 401.9 01/19/2015 NATALIYATRAVON COST SPECIALIST Ot 250.01 01/19/2015 TRAVON AN COST SPECIALIST Ot 401.9 01/19/2015 TRAVON AN COST SPECIALIST Ot V58.69 01/19/2015 NATALIYATRAVON COST SPECIALIST Ot V72.62 01/19/2015 OTHER, UNLISTED Ot 250.00 01/19/2015 OTHER, UNLISTED Ot 401.9 01/19/2015 OTHER, UNLISTED Ot 491.21 01/19/2015 OTHER, UNLISTED Ot 593.9 01/19/2015 GEOVANNA HILTON MD Ot 443.9 01/19/2015 GEOVANNA HILTON MD Ot 707.15 01/19/2015 ROSS QUIÑONES CONSTRUCTION EQUIPMENT OPERATOR-C Ot 403.10 01/19/2015 ROSS QUIÑONES CONSTRUCTION EQUIPMENT OPERATOR-C Ot 584.9 01/19/2015 ROSS QUIÑONES CONSTRUCTION EQUIPMENT OPERATOR-C Ot 585.4 01/19/2015 ROSS QUIÑONES CONSTRUCTION EQUIPMENT OPERATOR-C Ot 782.3 01/19/2015 YUMIKO MASSEY, SEBASTIAN Arvizu Ot 244.9 01/19/2015 YUMIKO MASSEY, SEBASTIAN Arvizu Ot 250.02 01/19/2015 SEBASTIAN ZELAYA MD Ot 401.9 01/19/2015 YUMIKO MASSEY, SEBASTIAN Arvizu Ot 458.9 01/19/2015 SEBASTIAN ZELAYA MD Ot 586 01/19/2015 PAIGE MCLAIN COST SPECIALIST Ot 202.80 01/19/2015 PAIGE MCLAIN COST SPECIALIST Ot 244.9 01/19/2015 PAIGE MCLAIN COST SPECIALIST Ot 250.40 01/19/2015 PAIGE MCLAIN COST SPECIALIST Ot 250.60 01/19/2015 PAIGE MCLAIN COST SPECIALIST Ot 285.21 01/19/2015 PAIGE MCLAIN S COST SPECIALIST Ot 357.2 01/19/2015 MCLAINPAIGE Matthews S COST SPECIALIST Ot 583.81 01/19/2015 PAIGE MCLAIN S COST SPECIALIST Ot 585.4 01/19/2015 PAIGE MCLAIN S COST SPECIALIST Ot 780.4 01/19/2015 PAIGE MCLAIN S COST SPECIALIST Ot 784.0 01/19/2015 PAIGE MCLAIN S COST SPECIALIST Ot 785.6 01/19/2015 PAIGE MCLAIN S COST SPECIALIST Ot V15.3 01/19/2015 MCLAINPAIGE Matthews S COST SPECIALIST Ot V58.67 01/19/2015 MCLAINPAIGE Matthews S COST SPECIALIST Ot V58.69 01/19/2015 CELESTINE MASSEY, MARYK Caputo Ot 585.3 01/19/2015 PAIGE MCLAIN S COST SPECIALIST Ot 202.80 01/19/2015 PAIGE MCLAIN S COST SPECIALIST Ot 780.4 01/19/2015 PAIGE MCLAIN S COST SPECIALIST Ot 784.0 01/19/2015 PAIGE MCLAIN S COST SPECIALIST Ot 785.6 01/19/2015 FLORES MATTHEWS MEDICAL CHEMIST Ot K59.00 01/19/2015 FLORES MATTHEWS MEDICAL CHEMIST Ot R11.0 01/19/2015 FLORES MATTHEWS MEDICAL CHEMIST Ot R19.12 01/19/2015 MARCABRAHAM SINGH DO Ot R93.5 01/19/2015 WILSON ABRAHAM LU Ot Z01.818 01/19/2015 TRAVON AN COST SPECIALIST Ot E03.9 01/19/2015 TRAVON AN COST SPECIALIST Ot E11.65 01/19/2015 TRAVON AN COST SPECIALIST Ot N18.4 01/19/2015 CELESTINE MASSEY, MARKY Caputo Ot N18.3 01/19/2015 CELESTINE MASSEY, MARKY Caputo Ot N18.4 01/25/2015 MCLAINPAIGE Matthews S COST SPECIALIST Ot C85.80 01/25/2015 MCLAINPAIGE Matthews S COST SPECIALIST Ot D63.1 01/25/2015 CHEMOPAIGE S COST SPECIALIST Ot E03.9 01/25/2015 CHEMO PAIGE S COST SPECIALIST Ot E11.22 01/25/2015 CHEMO PAIGE Matthews COST SPECIALIST Ot E11.40 01/25/2015 CHEMO PAIGE Matthews COST SPECIALIST Ot E78.5 01/25/2015 CHEMO PAIGE Matthews COST SPECIALIST Ot G47.30 01/25/2015 CHEMO PAIGE Matthews COST SPECIALIST Ot I12.9 01/25/2015 CHEMO PAIGE Matthews COST SPECIALIST Ot I25.10 01/25/2015 CHEMO PAIGE Byron COST SPECIALIST Ot N18.4 01/25/2015 CHEMO PAIGE Matthews COST SPECIALIST Ot Z79.4 01/25/2015 CHEMO PAIGE Matthews COST SPECIALIST Ot Z79.899 01/25/2015 CYNTHIA MCLAINBRODIE Matthews COST SPECIALIST Ot Z98.61 01/31/2015 ISSAC SILVA MD Ot [...] HYPOXEMIA 01/31/2015 ISSAC SILVA MD, Ot 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 01/31/2015 ISSAC SILVA MD Ot Z85.72 PERSONAL HISTORY OF NON-HODGKIN LYMPHOMA 01/31/2015 ISSAC SILVA MD Ot Z85.850 PERSONAL HISTORY OF MALIGNANT NEOPLASM O 02/02/2015 PAIGE MCLAIN COST SPECIALIST Ot C85.80 02/02/2015 PAIGE MCLAIN COST SPECIALIST Ot D63.1 02/02/2015 CYNTHIA MCLAINBRODIE Byron COST SPECIALIST Ot E03.9 02/02/2015 PAIGE MCLAIN COST SPECIALIST Ot E11.22 02/02/2015 PAIGE MCLAIN COST SPECIALIST Ot E11.40 02/02/2015 CYNTHIA MCLAINBRODIE Byron COST SPECIALIST Ot E78.5 02/02/2015 PAIGE MCLAIN COST SPECIALIST Ot G47.30 02/02/2015 PAIGE MCLAIN COST SPECIALIST Ot I12.9 02/02/2015 PAIGE MCLAIN COST SPECIALIST Ot I25.10 02/02/2015 PAIGE MCLAIN COST SPECIALIST Ot N18.4 02/02/2015 PAIGE MCLAIN COST SPECIALIST Ot Z79.4 02/02/2015 PAIGE MCLAIN COST SPECIALIST Ot Z79.899 02/02/2015 PAIGE MCLAIN COST SPECIALIST Ot Z98.61 02/09/2015 FLORES MATTHEWS MEDICAL CHEMIST Ot R53.83 02/09/2015 FLORES MATTHEWS MEDICAL CHEMIST Ot R94.6 02/09/2015 CELESTINE MASSEY, MARKY Caputo [...] LIZETTE Caputo Ot 433.10 03/20/2015 PAIGE MCLAIN COST SPECIALIST Ot 202.80 03/20/2015 PAIGE MCLAIN S COST SPECIALIST Ot 244.9 03/20/2015 PAIGE MCLAIN S COST SPECIALIST Ot 585.3 03/20/2015 PAIGE MCLAIN S COST SPECIALIST Ot 780.4 03/20/2015 PAIGE MCLAIN S COST SPECIALIST Ot 783.21 03/20/2015 PAIGE MCLAIN S COST SPECIALIST Ot V15.3 03/20/2015 PAIGE MCLAIN S COST SPECIALIST Ot V87.41 03/20/2015 PAIGE MCLAIN S COST SPECIALIST Ot 202.80 03/20/2015 YUMIKO MASSEY, SEBASTIAN A Ot 272.4 03/20/2015 YUMIKO MASSEY, SEBASTIAN A Ot 401.9 03/20/2015 YUMIKO MASSEY, SEBASTIAN A Ot V58.69 03/20/2015 TRAVON AN COST SPECIALIST Ot 719.45 03/20/2015 TRAVON AN COST SPECIALIST Ot 786.50 03/20/2015 TRAVON AN COST SPECIALIST Ot E000.8 03/20/2015 NATALIYA TRAVON M COST SPECIALIST Ot E849.6 03/20/2015 NATALIYA TRAVON Harshal COST SPECIALIST Ot E888.9 03/20/2015 MCLAINPAIGE Matthews S COST SPECIALIST Ot 202.80 03/20/2015 MCLAIN, HILAH S COST SPECIALIST Ot 244.9 03/20/2015 MCLAIN, HILAH S COST SPECIALIST Ot 250.00 03/20/2015 CMLAIN, HILAH S COST SPECIALIST Ot 272.4 03/20/2015 MCLAIN, HILAH S COST SPECIALIST Ot 356.9 03/20/2015 MCLAIN, HILAH S COST SPECIALIST Ot 403.90 03/20/2015 MCLAIN, HILAH S COST SPECIALIST Ot 414.00 03/20/2015 MCLAIN, HILAH S COST SPECIALIST Ot 585.3 03/20/2015 MCLAIN, HILAH S COST SPECIALIST Ot 780.57 03/20/2015 MCLAIN, HILAH S COST SPECIALIST Ot V15.3 03/20/2015 MCLAIN, HILAH S COST SPECIALIST Ot V45.82 03/20/2015 MCLAIN, HILAH S COST SPECIALIST Ot V58.67 03/20/2015 MCLAIN, HILAH S COST SPECIALIST Ot V58.69 03/20/2015 MCLAIN, HILAH S COST SPECIALIST Ot V87.41 03/20/2015 MCLAIN, HILAH S COST SPECIALIST Ot 202.80 03/20/2015 SHIRA DORANTES Ot 202.80 03/20/2015 TRAVON AN COST SPECIALIST Ot 401.9 03/20/2015 TRAVON AN COST SPECIALIST Ot 518.0 03/20/2015 NICOLE MASSEY, CORY A Ot 591 03/20/2015 NICOLE MASSEY, CORY A Ot 599.70 03/20/2015 NICOLE MASSEY, CORY A Ot 600.00 03/20/2015 NICOLE MASSEY, CORY A Ot 257.2 03/20/2015 NICOLE MASSEY, CORY A Ot 599.70 03/20/2015 NICOLE MASSEY, CORY A Ot 600.00 03/20/2015 TRAVON AN COST SPECIALIST Ot 250.01 03/20/2015 MCLAIN, PAIGE S COST SPECIALIST Ot 202.80 03/20/2015 MCLAIN, HILAH S COST SPECIALIST Ot 202.88 03/20/2015 PAIGE MCLAIN S COST SPECIALIST Ot 244.9 03/20/2015 MCLAINPAIGE Matthews S COST SPECIALIST Ot 250.00 03/20/2015 MCLAINPAIGE Matthews S COST SPECIALIST Ot 414.00 03/20/2015 PAIGE MCLAIN S COST SPECIALIST Ot 585.3 03/20/2015 MCLAINPAIGE Matthews S COST SPECIALIST Ot V45.82 03/20/2015 MCLAINPAIGE S COST SPECIALIST Ot V58.67 03/20/2015 MCLAINPAIGE S COST SPECIALIST Ot V58.69 03/20/2015 YUMIKO MASSEY, SEBASTIAN A Ot V58.69 03/20/2015 YUMIKO MASSEY, SEBASTIAN A Ot V58.83 03/20/2015 MCLAINPAIGE Matthews S COST SPECIALIST Ot 202.80 03/20/2015 PAIGE MCLAIN S COST SPECIALIST Ot 244.9 03/20/2015 MCLAINPAIGE Matthews S COST SPECIALIST Ot 250.00 03/20/2015 MCLAINPAIGE Matthews S COST SPECIALIST Ot 272.4 03/20/2015 MCLAINPAIGE Matthews S COST SPECIALIST Ot 356.9 03/20/2015 MCLAINPAIGE Matthews S COST SPECIALIST Ot 403.90 03/20/2015 PAIGE MCLAIN S COST SPECIALIST Ot 414.00 03/20/2015 PAIGE MCLAIN S COST SPECIALIST Ot 585.3 03/20/2015 MCLAINPAIGE Matthews S COST SPECIALIST Ot 780.57 03/20/2015 MCLAINPAIGE Matthews S COST SPECIALIST Ot V45.82 03/20/2015 MCLAINPAIGE Matthews S COST SPECIALIST Ot V58.67 03/20/2015 MCLAINPAIGE Matthews S COST SPECIALIST Ot V58.69 03/20/2015 TRAVON AN COST SPECIALIST Ot 250.01 03/20/2015 TRAVON AN COST SPECIALIST Ot 272.4 03/20/2015 TRAVON AN COST SPECIALIST Ot 401.9 03/20/2015 YUMIKO MASSEY, SEBASTIAN A Ot 250.01 03/20/2015 YUMIKO MASSEY, SEBASTIAN A Ot V58.69 03/20/2015 YUMIKO MASSEY, SEBASTIAN A Ot V58.83 03/20/2015 YUMIKO MASSEY, SEBASTIAN A Ot 285.9 03/20/2015 YUMIKO MASSEY, SEBASTIAN A Ot 786.2 03/20/2015 YUMIKO MASSEY, SEBASTIAN Arvizu Ot 786.2 03/20/2015 TRAVON AN COST SPECIALIST Ot 285.9 03/20/2015 TRAVON AN COST SPECIALIST Ot 288.60 03/20/2015 YUMIKO MASSEY, SEBASTIAN A Ot 285.9 03/20/2015 YUMIKO MASSEY, SEBASTIAN Arvizu Ot 490 03/20/2015 YUMIKO MASSEY, SEBASTIAN Arvizu Ot 780.79 03/20/2015 ABRAHAM MARC DO Ot V72.84 03/20/2015 BRYNN ROBLEDO, TIESHA K Ot 250.92 03/20/2015 BRYNN ROBLEDO, TIESHA K Ot 272.4 03/20/2015 BRYNN ROBLEDO, TIESHA K Ot 401.9 03/20/2015 BRYNN ROBLEDO, TIESHA K Ot 414.01 03/20/2015 PAIGE MCLAIN COST SPECIALIST Ot 202.88 03/20/2015 PAIGE MCLAIN COST SPECIALIST Ot 244.9 03/20/2015 PAIGE MCLAIN S COST SPECIALIST Ot 250.00 03/20/2015 PAIGE MCLAIN S COST SPECIALIST Ot 414.00 03/20/2015 PAIGE MCLAIN COST SPECIALIST Ot 585.3 03/20/2015 PAIGE MCLAIN COST SPECIALIST Ot V58.67 03/20/2015 PAIGE MCLAIN S COST SPECIALIST Ot V58.69 03/20/2015 PAIGE MCLAIN S COST SPECIALIST Ot 202.80 03/20/2015 VIKTOR MASSEY, TEDDY Andres Ot 272.4 03/20/2015 VIKTOR MASSEY, TEDDY Andres Ot 401.9 03/20/2015 VIKTOR MASSEY, TEDDY Andres Ot 414.00 03/20/2015 VIKTOR MASSEY, TEDDY Andres Ot 780.2 03/20/2015 VIKTOR MASSEY, TEDDY Andres Ot 401.9 03/20/2015 VIKTOR MASSEY, TEDDY Andres Ot 414.00 03/20/2015 VIKTOR MASSEY, TEDDY Andres Ot 780.2 03/20/2015 MCLAINPAIGE Matthews COST SPECIALIST Ot 202.80 03/20/2015 Ot 202.88 03/20/2015 Ot [...] 03/20/2015 Ot 593.89 03/20/2015 Ot 789.00 03/20/2015 SHRIA DORANTES N Ot 202.80 03/20/2015 CORY RIVERA MD Ot 593.9 03/20/2015 TRAVON AN COST SPECIALIST Ot 721.0 03/20/2015 TRAVON AN COST SPECIALIST Ot 721.3 03/20/2015 TRAVON AN COST SPECIALIST Ot E000.8 03/20/2015 TRAVON AN COST SPECIALIST Ot E819.9 03/20/2015 TRAVON AN COST SPECIALIST Ot 250.00 03/20/2015 TRAVON AN COST SPECIALIST Ot 787.01 03/20/2015 Ot 202.80 03/20/2015 Ot 250.00 03/20/2015 Ot 401.9 03/20/2015 Ot 780.79 03/20/2015 Ot 784.0 03/20/2015 Ot 787.02 03/20/2015 Ot V45.82 03/20/2015 Ot V57.89 03/20/2015 TRAVON AN COST SPECIALIST Ot 250.00 03/20/2015 TRAVON AN COST SPECIALIST Ot 458.9 03/20/2015 TRAVON AN COST SPECIALIST Ot 585.4 03/20/2015 TRAVON AN COST SPECIALIST Ot 780.4 03/20/2015 DAVID CEJA DO Ot 327.23 03/20/2015 DAVID CEJA DO Ot 486 03/20/2015 DAVID CEJA DO Ot 327.23 03/20/2015 DAVID CEJA DO Ot 486 03/20/2015 DAVID CEJA DO Ot 786.09 03/20/2015 DAVID CEJA DO Ot 327.23 03/20/2015 DAVID CEJA DO Ot 486 03/20/2015 DAVID CEJA DO Ot 786.09 03/20/2015 DAVID CEJA DO Ot 786.2 03/20/2015 NATALIYATARVON COST SPECIALIST Ot 401.9 03/20/2015 NATALIYATRAVON COST SPECIALIST Ot 250.01 03/20/2015 NATALIYATRAVON COST SPECIALIST Ot 401.9 03/20/2015 ANTRAVON COST SPECIALIST Ot V58.69 03/20/2015 NATALIYATRAVON COST SPECIALIST Ot V72.62 03/20/2015 OTHER, UNLISTED Ot 250.00 03/20/2015 OTHER, UNLISTED Ot 401.9 03/20/2015 OTHER, UNLISTED Ot 491.21 03/20/2015 OTHER, UNLISTED Ot 593.9 03/20/2015 YOBANI MASSEY, GEOVANNA Jaquez Ot 443.9 03/20/2015 GEOVANNA HILTON MD Ot 707.15 03/20/2015 ROSS QUIÑONES CONSTRUCTION EQUIPMENT OPERATOR-C Ot 403.10 03/20/2015 ROSS QUIÑONES CONSTRUCTION EQUIPMENT OPERATOR-C Ot 584.9 03/20/2015 ROSS QUIÑONES CONSTRUCTION EQUIPMENT OPERATOR-C Ot 585.4 03/20/2015 ROSS QUIÑONES CONSTRUCTION EQUIPMENT OPERATOR-C Ot 782.3 03/20/2015 YUMIKO MASSEY, SEBASTIAN Arvizu Ot 244.9 03/20/2015 YUMIKO MASSEY, SEBASITAN Arvizu Ot 250.02 03/20/2015 YUMIKO MASSEY, SEBASTIAN Arvizu Ot 401.9 03/20/2015 YUMIKO MASSEY, SEBASTIAN A Ot 458.9 03/20/2015 YUMIKO MASSEY, SEBASTIAN Arvizu Ot 586 03/20/2015 PAIGE MCLAIN COST SPECIALIST Ot 202.80 03/20/2015 PAIGE MCLAIN COST SPECIALIST Ot 244.9 03/20/2015 PAIGE MCLAIN COST SPECIALIST Ot 250.40 03/20/2015 PAIGE MCLAIN COST SPECIALIST Ot 250.60 03/20/2015 PAIGE MCLAIN COST SPECIALIST Ot 285.21 03/20/2015 PAIGE MCLAIN COST SPECIALIST Ot 357.2 03/20/2015 PAIGE MCLAIN S COST SPECIALIST Ot 583.81 03/20/2015 PAIGE MCLAIN S COST SPECIALIST Ot 585.4 03/20/2015 PAIGE MCLAIN S COST SPECIALIST Ot 780.4 03/20/2015 MCLAINPAIGE Matthews S COST SPECIALIST Ot 784.0 03/20/2015 MCLAINPAIGE Matthews S COST SPECIALIST Ot 785.6 03/20/2015 PAIGE MCLAIN S COST SPECIALIST Ot V15.3 03/20/2015 MCLAINPAIGE Matthews S COST SPECIALIST Ot V58.67 03/20/2015 MCLAINPAIGE Matthews S COST SPECIALIST Ot V58.69 03/20/2015 CELESTINE MASSEY, MARKY Caputo Ot 585.3 03/20/2015 PAIGE MCLAIN S COST SPECIALIST Ot 202.80 03/20/2015 PAIGE MCLAIN S COST SPECIALIST Ot 780.4 03/20/2015 PAIGE MCLAIN COST SPECIALIST Ot 784.0 03/20/2015 PAIGE MCLAIN COST SPECIALIST Ot 785.6 03/20/2015 FLORES MATTHEWS MEDICAL CHEMIST Ot K59.00 03/20/2015 FLORES MATTHEWS MEDICAL CHEMIST Ot R11.0 03/20/2015 FLORES MATTHEWS MEDICAL CHEMIST Ot R19.12 03/20/2015 WILSON ABRAHAM LU Ot R93.5 03/20/2015 WILSON ABRAHAM LU Ot Z01.818 03/20/2015 TRAVON AN COST SPECIALIST Ot E03.9 03/20/2015 TRAVON AN COST SPECIALIST Ot E11.65 03/20/2015 TRAVON AN COST SPECIALIST Ot N18.4 03/20/2015 CELESTINE MASSEY, MARKY Caputo [...] N Ot I25.10 ATHSCL HEART DISEASE OF [place] CORONARY 03/23/2015 SHIRA DOARNTES N Ot N18.4 CHRONIC KIDNEY DISEASE, STAGE 4 (SEVERE) 03/23/2015 SHIRA DORANTES N Ot 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 03/23/2015 SHIRA DORANTES N Ot Z79.899 OTHER GROUP HOME (CURRENT) DRUG THERAPY 03/23/2015 SHIRA DORANTES N Ot Z98.61 CORONARY ANGIOPLASTY STATUS 04/10/2015 VIKTOR MASSEY, TEDDY Andres Ot E78.2 04/10/2015 VIKTOR MASSEY, TEDDY Andres Ot I10 04/10/2015 VIKTOR MASSEY, TEDDY Andres Ot I25.10 04/10/2015 VIKTOR [...] Andres Ot I10 05/22/2015 VIKTOR MASSEY, TEDDY Anders Ot I25.10 05/22/2015 VIKTOR MASSEY, TEDDY Andres [...] LIZETTE Caputo Ot 433.10 05/31/2015 PAIGE MCLAIN COST SPECIALIST Ot 202.80 05/31/2015 PAIGE MCLAIN COST SPECIALIST Ot 244.9 05/31/2015 PAIGE MCLAIN COST SPECIALIST Ot 585.3 05/31/2015 PAIGE MCLAIN S COST SPECIALIST Ot 780.4 05/31/2015 PAIGE MCLAIN COST SPECIALIST Ot 783.21 05/31/2015 PAIGE MCLAIN COST SPECIALIST Ot V15.3 05/31/2015 PAIGE MCLAIN COST SPECIALIST Ot V87.41 05/31/2015 PAIGE MCLAIN S COST SPECIALIST Ot 202.80 05/31/2015 YUMIKO MASSEY, SEBASTIAN Arvizu Ot 272.4 05/31/2015 YUMIKO MASSEY, SEBASTIAN A Ot 401.9 05/31/2015 YUMIKO MASSEY, SEBSATIAN A Ot V58.69 05/31/2015 NATALIYATRAVON COST SPECIALIST Ot 719.45 05/31/2015 ANTRAVON COST SPECIALIST Ot 786.50 05/31/2015 TRAVON AN COST SPECIALIST Ot E000.8 05/31/2015 NATALIYATRAVON COST SPECIALIST Ot E849.6 05/31/2015 ANTRAVON COST SPECIALIST Ot E888.9 05/31/2015 MCLAINPAIGE Matthews S COST SPECIALIST Ot 202.80 05/31/2015 MCLAIN PAIGE S COST SPECIALIST Ot 244.9 05/31/2015 CHEMO PAIGE S COST SPECIALIST Ot 250.00 05/31/2015 CHEMO PAIGE S COST SPECIALIST Ot 272.4 05/31/2015 CHEMO CYNTHIAAH S COST SPECIALIST Ot 356.9 05/31/2015 MCLAIN PAIGE S COST SPECIALIST Ot 403.90 05/31/2015 MCLAIN CYNTHIAAH S COST SPECIALIST Ot 414.00 05/31/2015 MCLAIN PAIGE S COST SPECIALIST Ot 585.3 05/31/2015 MCLAIN PAIGE S COST SPECIALIST Ot 780.57 05/31/2015 MCLAIN PAIGE S COST SPECIALIST Ot V15.3 05/31/2015 MCLAIN PAIGE S COST SPECIALIST Ot V45.82 05/31/2015 MCLAIN, HILAH S COST SPECIALIST Ot V58.67 05/31/2015 MCLAIN PAIGE S COST SPECIALIST Ot V58.69 05/31/2015 MCLAIN PAIGE S COST SPECIALIST Ot V87.41 05/31/2015 CHEMO PAIGE S COST SPECIALIST Ot 202.80 05/31/2015 SHIRA DORANTES Ot 202.80 05/31/2015 NATALIYATRAVON COST SPECIALIST Ot 401.9 05/31/2015 NATALIYA TRAVON Caputo COST SPECIALIST Ot 518.0 05/31/2015 NICOLE MASSEY, CORY A Ot 591 05/31/2015 NICOLE MASSEY, CORY A Ot 599.70 05/31/2015 NICOLE MASSEY, CORY A Ot 600.00 05/31/2015 NICOLE MASSEY, CORY A Ot 257.2 05/31/2015 NICOLE MASSEY, CORY A Ot 599.70 05/31/2015 NICOLE MASSEY, CORY A Ot 600.00 05/31/2015 TRAVON AN COST SPECIALIST Ot 250.01 05/31/2015 MCLAINPAIGE S COST SPECIALIST Ot 202.80 05/31/2015 MCLAINPAIGE S COST SPECIALIST Ot 202.88 05/31/2015 MCLAIN HILAH S COST SPECIALIST Ot 244.9 05/31/2015 MCLAIN HILAH S COST SPECIALIST Ot 250.00 05/31/2015 MCLAIN HILAH S COST SPECIALIST Ot 414.00 05/31/2015 MCLAINCYNTHIAAH S COST SPECIALIST Ot 585.3 05/31/2015 MCLAIN HILAH S COST SPECIALIST Ot V45.82 05/31/2015 MCLAIN, HILAH S COST SPECIALIST Ot V58.67 05/31/2015 MCLAIN, HILAH S COST SPECIALIST Ot V58.69 05/31/2015 YUMIKO MASSEY, SEBASTIAN A Ot V58.69 05/31/2015 YUMIKO MASSEY, SEBASTIAN A Ot V58.83 05/31/2015 MCLAINPAIGE Matthews S COST SPECIALIST Ot 202.80 05/31/2015 MCLAINPAIGE S COST SPECIALIST Ot 244.9 05/31/2015 MCLAINPAIGE S COST SPECIALIST Ot 250.00 05/31/2015 MCLAINPAIGE S COST SPECIALIST Ot 272.4 05/31/2015 MCLAIN, HILAH S COST SPECIALIST Ot 356.9 05/31/2015 MCLAINCYNTHIAAH S COST SPECIALIST Ot 403.90 05/31/2015 MCLAINCYNTHIAAH S COST SPECIALIST Ot 414.00 05/31/2015 MCLAINPAIGE S COST SPECIALIST Ot 585.3 05/31/2015 MCLAIN, HILAH S COST SPECIALIST Ot 780.57 05/31/2015 MCLAIN, HILAH S COST SPECIALIST Ot V45.82 05/31/2015 MLCAIN, HILAH S COST SPECIALIST Ot V58.67 05/31/2015 MCLAIN HILAH S COST SPECIALIST Ot V58.69 05/31/2015 TRAVON AN COST SPECIALIST Ot 250.01 05/31/2015 TRAVON AN COST SPECIALIST Ot 272.4 05/31/2015 TRAVON AN COST SPECIALIST Ot 401.9 05/31/2015 YUMIKO MASSEY, SEBASTIAN A Ot 250.01 05/31/2015 YUMIKO MASSEY, SEBASTIAN A Ot V58.69 05/31/2015 YUMIKO MASSEY, SEBASTIAN A Ot V58.83 05/31/2015 YUMIKO MASSEY, SEBASTIAN A Ot 285.9 05/31/2015 YUMIKO MASSEY, SEBASTIAN A Ot 786.2 05/31/2015 YUMIKO MASSEY, SEBASTIAN A Ot 786.2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
[2018-02-06] MEDS ORDERED: NS IV 1000 ML 1,000 ML IV SCH (15:29)
[2018-02-06] MEDS ORDERED: CEFEPIME INJECTION 2,000 MG in NS (IVPB) 50 ML IV ONE (15:30)
[2018-02-06] MEDS ORDERED: hydrALAZINE (APESOLINE) 20 MG/ML VIAL IV ONE (15:45)
[2018-02-06 17:13] VITALS: BP 162/90
== END 2018-02-06 17:13 | disposition short-term general hospital (02) ==
LOC: EDUNIT# 12:42 → ER 12:43
DX: J96.01 Acute respiratory failure with hypoxia (principal); J18.9 Pneumonia, unspecified organism; I12.0 Hypertensive chronic kidney disease with stage 5 chronic kidney disease or end stage renal disease; N18.6 End stage renal disease; E11.22 Type 2 diabetes mellitus with diabetic chronic kidney disease; I25.10 Atherosclerotic heart disease of native coronary artery without angina pectoris; I48.91 Unspecified atrial fibrillation; I25.2 Old myocardial infarction; E78.00 Pure hypercholesterolemia, unspecified; E11.40 Type 2 diabetes mellitus with diabetic neuropathy, unspecified; K21.9 Gastro-esophageal reflux disease without esophagitis; E03.9 Hypothyroidism, unspecified; F41.9 Anxiety disorder, unspecified; Z80.3 Family history of malignant neoplasm of breast; Z85.72 Personal history of non-Hodgkin lymphomas; Z87.442 Personal history of urinary calculi; Z99.2 Dependence on renal dialysis; Z95.5 Presence of coronary angioplasty implant and graft; Z79.82 Long term (current) use of aspirin; Z79.4 Long term (current) use of insulin
CPT/HCPCS: 36415; 71046; 80053; 80320; 83605; 84484; 85025; 85610; 85730; 86141; 87040; 87804; 94640

== ENCOUNTER 2018-02-11 07:48 | Emergency (ER) | payer MEDICARE ==
[~2018-02-11] VITALS: Ht 175.3 cm; Wt 90.7 kg
--- NOTE | 2018-02-11 08:32 | ED CPR ---
HPI-CPR General Chief Complaint: Code Blue Stated Complaint: CODE BLUE Nursing Triage Note: PT ARRIVED PER EMS, EMS CALLED AT 0715 PT IS UNABLE TO BE AWAKEN BY . PT WAS GIVEN EPI X5, 1AMP BICARB, 1 AMP CALCIUM, BY EMS. PT HAS IV IN L JUGULAR BY EMS IV NS INFUSING. CPR IN PROGRESS, PT BAGGED BY EMS. PT WAS ENTUBATED BY EMS #8 ET TUBE AT TEETH. PT IS A DIALYSIS PT. PT HAS DIALYSIS PORT IN R CHEST. Sepsis Screen: No Definite Risk Source of Information: EMS, Family Exam Limitations: Physical Impairments History of Present Illness Date Seen by Provider: Feb 11, 2018 Time Seen by Provider: 07:49 Allergies and Home Medications Allergies Coded Allergies: No Known Drug Allergies (Unverified , 01/03/14) Home Medications Acetaminophen/Diphenhydramine 1 Each Tablet, 1 TAB PO HS PRN for SLEEP, ( Reported) Albuterol 8.5 Gm Hfa.aer.ad, 2 PUFF IH Q4H PRN for SHORTNESS OF BREATH, ( Reported) Albuterol Sulfate 0.83 Mg/Ml Solution, 2.5 MG IH Q8H PRN for SHORTNESS OF BREATH, (Reported) Alprazolam 0.5 Mg Tablet, 0.5 MG PO TID PRN for ANXIETY, (Reported) Amlodipine Besylate 5 Mg Tablet, 5 MG PO DAILY, (Reported) Amlodipine Besylate 10 Mg Tablet, 10 MG PO DAILY Prescribed by: ISSAC GRAHAM on 10/15/17 1648 Aspirin 81 Mg Tabec, 81 MG PO DAILY, (Reported) Calcium Acetate 667 Mg Capsule, 667 MG PO TID, (Reported) Carvedilol 6.25 Mg Tablet, 6.25 MG PO BID, (Reported) Colesevelam HCl 625 Mg Tablet, 1,875 MG PO BID, (Reported) TAKES 3 (625 MG) TABLETS Docusate Sodium 100 Mg Capsule, 100 MG PO DAILY PRN for CONSTIPATION, (Reported) Gabapentin 100 Mg Capsule, 100 MG PO TID, (Reported) Hydralazine HCl 25 Mg Tablet, 25 MG PO TID, (Reported) Insulin Detemir 100 Unit/1 Ml Insuln.pen, 15 UNITS SQ TID, (Reported) Insulin Lispro 100 Unit/1 Ml Cartridge, 15 UNITS SQ AC, (Reported) PATIENT USES ON SLIDING SCALE Isosorbide Mononitrate 30 Mg Tab.er.24h, 30 MG PO DAILY, (Reported) Levothyroxine Sodium 175 Mcg Tablet, 175 MCG PO BID, (Reported) Losartan Potassium 100 Mg Tablet, 100 MG PO DAILY Prescribed by: ISSAC GRAHAM on 10/15/17 1648 [place] 3 Polyunsat Fatty Acids 1,000 Mg Cap, 3,000 MG PO BID, (Reported) TAKES 3 (1000 MG) CAPSULES Tiotropium [place] 1 Inh Aerp, 1 PUFF IH DAILY PRN for SHORTNESS OF BREATH, ( Reported) Past Xemrwdk-Omlumr-Espbkx Hx Patient Social History 2nd Hand Smoke Exposure: No Recent Foreign Travel: No Contact w/Someone Who Travel: No Recent Infectious Disease Expo: No Recent Hopitalizations: Yes Immunizations Up To Date Tetanus Booster (TDap): Unknown PED Vaccines UTD: No Date of Pneumonia Vaccine: Nov 30, 2012 Date of Influenza Vaccine: Nov 20, 2016 Seasonal Allergies Seasonal Allergies: Yes Past Medical History Surgeries: Yes (I-LINQ DEVICE, port placed, lymph node) Cardiac, Coronary Stent, Dialysis, Orthopedic, Thyroidectomy Respiratory: Yes (PULMONARY EDEMA; HAS HAD PNEUMONIA A FEW TIMES) Pneumonia Cardiac: Yes Atrial Fibrillation, Coronary Artery Disease, Heart Attack, High Cholesterol, Hypertension, Syncope Neurological: Yes Neuropathy Reproductive Disorders: No Sexually Transmitted Disease: No HIV/AIDS: No Genitourinary: Yes Kidney Stones, Renal Failure, Dialysis Gastrointestinal: Yes Gastroesophageal Reflux Musculoskeletal: Yes (CHROINC NECK PAOIN ) Chronic Back Pain, Gout Endocrine: Yes Hypothyroidsim, Diabetes, Non-Insulin dep HEENT: No Glaucoma Hearing Impairment: Denies Cancer: Yes Lymphoma, Thyroid Did You Recieve Any Treatments: Yes What Type of Treatment Did You: Chemotherapy, Radiation Psychosocial: Yes Anxiety Integumentary: No Blood Disorders: No Adverse Reaction/Blood Tranf: No Family Medical History Cardiovascular disease 19 MOTHER G8 BROTHER (heart attack at 17 and is 72 years old now) FH: bladder cancer 19 FATHER FH: breast cancer 19 MOTHER Hypertension G8 SISTER Parkinson's disease G8 SISTER Heart Disease, Cancer, Hypertension Physical Exam Vital Signs Vital Signs - First Documented 02/11/18 07:48 Temp 85.5 Pulse 0 Resp 0 B/P (MAP) 198/30 (85) Pulse Ox 0 Capillary Refill : Greater Than 3 Seconds Height, Weight, BMI Height: 5'9.00" Weight: 200lbs. 9.0oz. 90.288481lm; 26.54 BMI Method:Estimated Progress/Results/Core Measures Results/Orders Vital Signs/I&O 02/11/18 07:48 Temp 85.5 Pulse 0 Resp 0 B/P (MAP) 198/30 (85) Pulse Ox 0 Blood Pressure Mean: 85 Critical Care Note Critical Care Time of : 08:00 Departure Impression Primary Impression: Asystole Additional Impressions: Hyperkalemia End stage renal failure on dialysis Departure-Patient Inst. Referrals: SEBASTIAN CALDERON MD (PCP/Family) Primary Care Physician ISSAC SILVA MD Feb 11, 2018 08:32
[2018-02-11 14:10] VITALS: BP 0/0
== END 2018-02-11 12:56 | disposition expired ==
LOC: EDUNIT# 07:48 → ER 07:49
DX: I46.9 Cardiac arrest, cause unspecified (principal); E87.5 Hyperkalemia; E11.22 Type 2 diabetes mellitus with diabetic chronic kidney disease; I12.0 Hypertensive chronic kidney disease with stage 5 chronic kidney disease or end stage renal disease; N18.6 End stage renal disease; E11.40 Type 2 diabetes mellitus with diabetic neuropathy, unspecified; I48.91 Unspecified atrial fibrillation; I25.10 Atherosclerotic heart disease of native coronary artery without angina pectoris; K21.9 Gastro-esophageal reflux disease without esophagitis; I25.2 Old myocardial infarction; E78.00 Pure hypercholesterolemia, unspecified; E03.9 Hypothyroidism, unspecified; F41.9 Anxiety disorder, unspecified; Z80.3 Family history of malignant neoplasm of breast; Z82.49 Family history of ischemic heart disease and other diseases of the circulatory system; Z80.52 Family history of malignant neoplasm of bladder; Z79.51 Long term (current) use of inhaled steroids; Z87.442 Personal history of urinary calculi; Z85.72 Personal history of non-Hodgkin lymphomas; Z85.850 Personal history of malignant neoplasm of thyroid; Z79.82 Long term (current) use of aspirin; Z79.4 Long term (current) use of insulin; Z95.5 Presence of coronary angioplasty implant and graft; Z98.890 Other specified postprocedural states; Z90.89 Acquired absence of other organs; Z87.01 Personal history of pneumonia (recurrent); Z92.21 Personal history of antineoplastic chemotherapy
CPT/HCPCS: 31500; 92950; 93041; 99291